=== PATIENT | male | born 1935 | race Caucasian/White ===

== ENCOUNTER 2017-06-16 18:59 | Inpatient (IN) | payer MEDICARE ==
--- OUTSIDE RECORDS SUMMARY | 2017-06-16 19:01 | XMS REPORT ---
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 Active Problem Atrial fibrillation I48.91 Active Problem Tremor R25.1 Active Problem Hypertension I10 Active Problem Erectile dysfunction N52.9 Active Problem Hydrocele N43.3 Active Problem Chronic pain syndrome G89.4 Active Problem Mixed hyperlipidemia E78.2 Active Assessment Tremor R25.1 Active Assessment Mixed hyperlipidemia E78.2 Active Assessment Complaint of debility and malaise R53.81 Active Assessment Parkinson''s disease G20 Active Assessment Chronic obstructive bronchitis J44.9 Active without exacerbation Problem Seasonal allergic rhinitis, J30.2 Active unspecified trigger Assessment Hypertension I10 Active Problem Parkinson''s disease G20 Active Assessment Atrial fibrillation I48.91 Active Problem Chronic kidney disease, stage 3 N18.3 Active Medications Medication Code Code Instructions Start End Status Dosage System Date Date Metoprolol [facility] 34571332065 50 MG Orally Active 1 tablet Tartrate Twice a day with food Symbicort [facility] 66115466531 160-4.5 MCG/ACT Active 2 puffs Inhalation Twice a day Aspirin [facility] 91167070123 325 MG Orally Active 1 tablet Once a day Pentoxifylline ER [facility] 66409319884 400 MG Orally Active 1 tablet Twice a day with meals Topiramate [facility] 89161299317 25 MG Orally Active 1 tablet Twice a day ProAir HFA [facility] 19827856610 108 (90 Base) Active 2 puffs as MCG/ACT needed Inhalation every 6 hrs Cardizem LA [facility] 88574555398 180 MG Orally Active 1 tablet Once a day Losartan [facility] 21067700596 50MG Orally Active TAKE ONE Potassium Once a day TABLET BY MOUTH ONCE DAILY Senokot S [facility] 69400129712 8.6-50 MG Active 1 tablet Orally Once a in the day evening as needed Perforomist [facility] 52726124496 20 MCG/2ML Active 2 ml Inhalation Twice a day Xarelto [facility] 24327271979 15 MG Orally Active 1 tablet Once a day with food Results No Known Results Summary Purpose eClinicalWorks Submission
[2017-06-16] MEDS ORDERED: LEVALBUTEROL 1.25 MG/3 ML NEB ONE (20:36)
[2017-06-16] MEDS ORDERED: IPRATROPIUM BROM 0.5MG/2.5ML ONE (20:36)
[2017-06-16] MEDS ORDERED: PANTOPRAZOLE 40 MG INJ ONE (20:37)
[2017-06-16] MEDS ORDERED: NA CHLORIDE 0.9% 250 ML ONE (20:37)
[2017-06-16 20:40] LABS: Absolute Lymphocytes (CBC) 1.9 K/uL (0.7-4.9); Absolute Monocytes 0.8 K/uL (0.1-1.3); Absolute Neutrophil 6.2 K/uL (1.8-8.0); Basophils % 0.5 % (0-1.3); Eosinophils % 1.2 % (0-4.4); Hematocrit 29.6 % (39.6-49.0); Lymphocytes % 20.7 % (15.3-44.8); MCH 22.6 pg (27.0-35.0); MPV 8.4 fL (7.6-11.3); Monocytes % 8.6 % (3.3-12.3); RBC Red Blood Cell Count 4.11 M/uL (4.33-5.43)
[2017-06-16 20:49] LABS: Protime INR 1.45
[2017-06-16 20:56] LABS: Potassium 4.2 mEq/L (3.6-5.0)
[2017-06-16 21:03] LABS: Albumin 4.3 g/dL (3.2-5.5); Bilirubin Direct 0.1 mg/dL (0-0.2); Bilirubin Total 0.4 mg/dL (0.3-1.2); Magnesium 1.9 mg/dL (1.8-2.5); Protein, Total 7.5 g/dL (6.0-8.3)
[2017-06-16 21:05] LABS: CKMB Creatine Kinase MB 2.7 ng/ml (0.3-4.0)
--- NOTE | 2017-06-16 21:34 | EDPHYS ---
Physician Documentation [facility] Name: Rohan Jaquez Age: 82 yrs Sex: Male : 1935 Arrival Date: 06/16/2017 Time: 19:03 Bed 27 Private MD: ED Physician Preston Merrill HPI: 06/16 19:52 This 82 yrs old Male presents to ER via Ambulatory with complaints of nupur Abnormal Lab Results. 19:52 The patient presents with abdominal pain in the upper abdomen, in the lower abdomen. nupur Onset: The symptoms/episode began/occurred 3 day(s) ago. The patient presents to the emergency department with rectal bleeding. Onset: The symptoms/episode began/occurred 3 day(s) ago. Abdominal pain: located in the right upper quadrant, left upper quadrant, right lower quadrant and left lower quadrant. Modifying factors: The symptoms are alleviated by nothing. The symptoms do not radiate. Modifying factors: The symptoms are alleviated by nothing, the symptoms are aggravated by nothing. Historical: - Allergies: 19:18 No Known Allergies; aj - Home Meds: 19:18 Xarelto 15 mg oral tab [Active]; losartan 50 mg Oral tab 1 tab once daily [Active]; aj metoprolol tartrate 50 mg Oral tab 1 tab 2 times per day [Active]; Miralax 17 gram/dose Oral powd once daily [Active]; robitussin AC [Active]; Cardizem 180 mg Oral 1 tab daily [Active]; NitroQuick SL 0.4 mg as needed [Active]; Perforomist 20 mcg/2 mL inhalation nebu 2 mL 2 times per day [Active]; prednisone 10 mg Oral tab once daily [Active]; Topamax 25 mg Oral cpSP 2 times per day [Active]; budesonide inhalation inhalation [Active]; - PMHx: 19:18 Atrial Fib; chronic renal disease; COPD; Hypertension; hypoxemia; Pneumonia; aj - PSHx: 19:18 Hernia repair; aj - Immunization history:: Adult Immunizations. - Social history:: Smoking status: Patient/guardian denies using tobacco. - Family history:: not pertinent. ROS: 19:52 Constitutional: Negative for fever, chills, and weight loss, Eyes: Negative for injury, nupur pain, redness, and discharge, ENT: Negative for injury, pain, and discharge, Neck: Negative for injury, pain, and swelling, Cardiovascular: Negative for chest pain, palpitations, and edema, Respiratory: Negative for shortness of breath, cough, wheezing, and pleuritic chest pain, Back: Negative for injury and pain, : Negative for injury, bleeding, discharge, and swelling, MS/Extremity: Negative for injury and deformity, Neuro: Negative for headache, weakness, numbness, tingling, and seizure, Psych: Negative for depression, anxiety, suicide ideation, homicidal ideation, and hallucinations, Allergy/Immunology: Negative for hives, rash, and allergies, Endocrine: Negative for neck swelling, polydipsia, polyuria, polyphagia, and marked weight changes, Hematologic/Lymphatic: Negative for swollen nodes, abnormal bleeding, and unusual bruising. 19:52 Abdomen/GI: Positive for abdominal pain, nausea, abdominal cramps, of the right upper quadrant, left upper quadrant, right lower quadrant and left lower quadrant. Exam: 19:52 Constitutional: This is a well developed, well nourished patient who is awake, alert, nupur and in no acute distress. Head/Face: Normocephalic, atraumatic. Eyes: Pupils equal round and reactive to light, extra-ocular motions intact. Lids and lashes normal. Conjunctiva and sclera are non-icteric and not injected. Cornea within normal limits. Periorbital areas with no swelling, redness, or edema. ENT: Nares patent. No nasal discharge, no septal abnormalities noted. Tympanic membranes are normal and external auditory canals are clear. Oropharynx with no redness, swelling, or masses, exudates, or evidence of obstruction, uvula midline. Mucous membranes moist. Neck: Trachea midline, no thyromegaly or masses palpated, and no cervical lymphadenopathy. Supple, full range of motion without nuchal rigidity, or vertebral point tenderness. No Meningismus. Chest/axilla: Normal chest wall appearance and motion. Nontender with no deformity. No lesions are appreciated. Cardiovascular: Regular rate and rhythm with a normal S1 and S2. No gallops, murmurs, or rubs. Normal PMI, no JVD. No pulse deficits. Back: No spinal tenderness. No costovertebral tenderness. Full range of motion. Male : Normal genitalia with no discharge or lesions. Skin: Warm, dry with normal turgor. Normal color with no rashes, no lesions, and no evidence of cellulitis. MS/ Extremity: Pulses equal, no cyanosis. Neurovascular intact. Full, normal range of motion. Neuro: Awake and alert, GCS 15, oriented to person, place, time, and situation. Cranial nerves II-XII grossly intact. Motor strength 5/5 in all extremities. Sensory grossly intact. Cerebellar exam normal. Normal gait. Psych: Awake, alert, with orientation to person, place and time. Behavior, mood, and affect are within normal limits. 19:52 Respiratory: the patient does not display signs of respiratory distress, Respirations: no acute changes, Breath sounds: bronchial sounds, decreased breath sounds, rhonchi, wheezing: expiratory Vital Signs: 19:18 BP 161 / 73; Pulse 88; Resp 19; Temp 97.4; Pulse Ox 96% on R/A; Weight 68.95 kg; Height aj 5 ft. 9 in. (175.26 cm); 20:03 BP 151 / 88; Pulse 91; Resp 18; Pulse Ox 96% ; Pain 0/10; cr4 22:20 BP 126 / 73; Pulse 78; Resp 18; Temp 98.4; Pulse Ox 94% ; Pain 0/10; cr4 22:32 BP 168 / 88; Pulse 82; Resp 18; Temp 98.6; Pulse Ox 94% ; Pain 0/10; cr4 19:18 Body Mass Index 22.45 (68.95 kg, 175.26 cm) aj MDM: 19:25 Patient medically screened. [facility] 19:54 Data reviewed: vital signs, nurses notes, lab test result(s), EKG, radiologic studies, [facility] CT scan, plain films. 06/16 19:51 Order name: Basic Metabolic Panel; Complete Time: 21:20 [facility] 06/16 19:51 Order name: BNP; Complete Time: 21:20 [facility] 06/16 19:51 Order name: CBC with Diff; Complete Time: 21:21 [facility] 06/16 19:51 Order name: Ckmb; Complete Time: 21:21 [facility] 06/16 19:51 Order name: CPK; Complete Time: 21:21 [facility] 06/16 19:51 Order name: LFT's; Complete Time: 21:21 [facility] 06/16 19:51 Order name: Magnesium; Complete Time: 21:21 [facility] 06/16 19:51 Order name: PT-INR; Complete Time: 21:21 nupur 06/16 19:51 Order name: Ptt, Activated; Complete Time: 21:21 nupur 06/16 19:51 Order name: Troponin (emerg Dept Use Only); Complete Time: 21:21 nupur 06/16 19:51 Order name: Type And Screen nupur 06/16 19:51 Order name: Lipase; Complete Time: 21:21 [facility] 06/16 20:13 Order name: Packed RBC Leukored -1 EDMS 06/16 21:52 Order name: CBC with Automated Diff EDMS 06/16 21:14 Order name: Abdomen EDMS 06/16 21:52 Order name: CBC with Automated Diff EDMS 06/16 21:52 Order name: Hematocrit EDMS 06/16 21:52 Order name: Hematocrit EDMS 06/16 21:52 Order name: Hematocrit EDMS 06/16 21:52 Order name: Hemoglobin EDMS 06/16 21:52 Order name: Hemoglobin EDMS 06/16 21:52 Order name: Hemoglobin EDMS 06/16 21:52 Order name: Protime (+INR) EDMS 06/16 21:52 Order name: Protime (+INR) EDMS 06/16 21:52 Order name: PTT, Activated Partial Thromb EDMS 06/16 21:52 Order name: PTT, Activated Partial Thromb EDMS 06/16 19:51 Order name: EKG; Complete Time: 19:52 nupur 06/16 19:51 Order name: Cardiac monitoring; Complete Time: 20:30 nupur 06/16 19:51 Order name: EKG - Nurse/Tech; Complete Time: 20:57 06/16 19:51 Order name: IV Saline Lock; Complete Time: 20:30 nupur 06/16 19:51 Order name: Labs collected and sent; Complete Time: 20:30 [facility] 06/16 19:51 Order name: O2 Per Protocol; Complete Time: 20:30 [facility] 06/16 19:51 Order name: O2 Sat Monitoring; Complete Time: 20:30 [facility] 06/16 19:51 Order name: IV Saline Lock - Large Bore; Complete Time: 20:30 [facility] 06/16 21:37 Order name: CONS Physician Consult EDOH 06/16 21:52 Order name: CONS Pharmacy Consult EDOH 06/16 21:52 Order name: NPO EDOH 06/16 21:52 Order name: EKG Electrocardiogram EDMS 06/16 21:52 Order name: EKG Electrocardiogram EDMS 06/16 21:52 Order name: EKG Electrocardiogram EDMS 06/16 21:52 Order name: EKG Electrocardiogram EDMS 06/16 21:52 Order name: EKG Electrocardiogram EDMS 06/16 21:52 Order name: EKG Electrocardiogram EDMS 06/16 21:52 Order name: EKG Electrocardiogram EDMS 06/16 21:52 Order name: EKG Electrocardiogram EDMS 06/16 21:52 Order name: EKG Electrocardiogram EDMS 06/16 21:52 Order name: EKG Electrocardiogram EDMS 06/16 21:52 Order name: EKG Electrocardiogram EDMS Administered Medications: 20:35 Drug: ProTONIX 80 mg Route: IVP; Site: right antecubital; cr4 21:10 Follow up: Response: No adverse reaction cr4 20:45 Drug: ProTONIX 8 mg/hr Route: IV; Rate: 25 ml/hr; Site: right antecubital; cr4 23:13 Follow up: IV Status: Infusion continued upon admission cr4 20:45 Drug: Xopenex 1.25 mg Route: Inhalation; cr4 20:45 Drug: AtroVENT Aerosol 0.5 mg Route: Inhalation; cr4 21:00 Follow up: Response: No adverse reaction cr4 Point of Care Testing: Guaiac: 19:56 Stool Guaiac: Positive; Stool Hemoccult Control: Pass; nupur Disposition: 06/16/17 21:34 Hospitalization ordered by Lelo Cope for Inpatient Admission. Preliminary diagnosis are Gastrointestinal hemorrhage, unspecified, Unspecified kidney failure, Chronic obstructive pulmonary disease with (acute) exacerbation. - Bed requested for Telemetry/MedSurg (Inpatient). - Status is Inpatient Admission. cr4 - Condition is Fair. - Problem is new. - Symptoms have improved. UTI on Admission? No Signatures: Dispatcher [employer] EDMariaelena Loomis RN RN mw Myers, Amanda, RN RN aj Anderson, Corey, MD MD cha Ruiz, Claudia, RN RN cr4 Preston Thapa PA PA cp Corrections: (The following items were deleted from the chart) 20:31 19:52 Chest Single View+RAD.RAD.BRZ ordered. EDOH EDOH 21:14 19:52 Abdomen Pelvis W Con+CT.RAD.BRZ ordered. EDMS EDMS
--- NOTE | 2017-06-16 21:34 | ER ---
Nurse's Notes [facility] Name: Rohan Jaquez Age: 82 yrs Sex: Male : 1935 Arrival Date: 06/16/2017 Time: 19:03 Bed 27 Private MD: Diagnosis: Gastrointestinal hemorrhage, unspecified;Unspecified kidney failure;Chronic obstructive pulmonary disease with (acute) exacerbation Presentation: 06/16 19:13 Presenting complaint: Patient states: Sent by Dr Velasco for "low blood". Transition of aj care: patient was not received from another setting of care. Onset of symptoms was June 16, 2017. Care prior to arrival: None. 19:13 Method Of Arrival: Ambulatory aj 19:13 Acuity: ANDRES 3 aj Triage Assessment: 19:18 General: Appears in no apparent distress. comfortable, Behavior is calm, cooperative, aj appropriate for age. Pain: Complains of pain in pelvis. Neuro: Level of Consciousness is awake, alert, obeys commands, Oriented to person, place, time, situation. Respiratory: Airway is patent Respiratory effort is even, unlabored, Respiratory pattern is regular, symmetrical. Derm: Skin is intact, is healthy with good turgor, Skin is pink, warm \\T\\ dry. normal. Historical: - Allergies: 19:18 No Known Allergies; aj - Home Meds: 19:18 Xarelto 15 mg oral tab [Active]; losartan 50 mg Oral tab 1 tab once daily [Active]; aj metoprolol tartrate 50 mg Oral tab 1 tab 2 times per day [Active]; Miralax 17 gram/dose Oral powd once daily [Active]; robitussin AC [Active]; Cardizem 180 mg Oral 1 tab daily [Active]; NitroQuick SL 0.4 mg as needed [Active]; Perforomist 20 mcg/2 mL inhalation nebu 2 mL 2 times per day [Active]; prednisone 10 mg Oral tab once daily [Active]; Topamax 25 mg Oral cpSP 2 times per day [Active]; budesonide inhalation inhalation [Active]; - PMHx: 19:18 Atrial Fib; chronic renal disease; COPD; Hypertension; hypoxemia; Pneumonia; aj - PSHx: 19:18 Hernia repair; aj - Immunization history:: Adult Immunizations. - Social history:: Smoking status: Patient/guardian denies using tobacco. - Family history:: not pertinent. Screenin:35 Abuse screen: Denies threats or abuse. Nutritional screening: No deficits noted. cr4 Tuberculosis screening: No symptoms or risk factors identified. Fall Risk No fall in past 12 months (0 pts). Secondary diagnosis (15 points) impaired mobility, IV access (20 points). Ambulatory Aid- Crutches/Cane/Walker (15 pts). Gait- Weak (10 pts.). Mental Status- Oriented to own ability (0 pts). Total Mahan Fall Scale indicates High Risk Score (45 or more points). Fall prevention measures have been instituted. Side Rails Up X 2 Placed Close to Nursing Station Frequent Obs/Assessments Occuring As available patient and family educated on Fall Prevention Program and Strategies. Assessment: 20:11 General: Appears comfortable, Behavior is calm, cooperative. Pain: Denies pain. Neuro: cr4 Reports weakness. Cardiovascular: No deficits noted. Reports Denies chest pain, lightheadedness, nausea, Heart tones S1 S2 Capillary refill < 3 seconds. Respiratory: Reports cough that is productive, Airway is patent Trachea midline Respiratory effort is even, unlabored, Breath sounds are clear bilaterally. GI: No deficits noted. : Reports patient denies need to void. Denies burning with urination, discharge, incontinence. EENT: No deficits noted. Derm: No deficits noted. Musculoskeletal: Capillary refill < 3 seconds, uses walker to ambulate. 21:00 Reassessment: No changes from previously documented assessment. Patient and/or family cr4 updated on plan of care and expected duration. Pain level reassessed. Patient is alert, oriented x 3, equal unlabored respirations, skin warm/dry/pink. 22:25 Reassessment: No changes from previously documented assessment. Patient and/or family cr4 updated on plan of care and expected duration. Pain level reassessed. Patient is alert, oriented x 3, equal unlabored respirations, skin warm/dry/pink. Vital Signs: 19:18 BP 161 / 73; Pulse 88; Resp 19; Temp 97.4; Pulse Ox 96% on R/A; Weight 68.95 kg; Height aj 5 ft. 9 in. (175.26 cm); 20:03 BP 151 / 88; Pulse 91; Resp 18; Pulse Ox 96% ; Pain 0/10; cr4 22:20 BP 126 / 73; Pulse 78; Resp 18; Temp 98.4; Pulse Ox 94% ; Pain 0/10; cr4 22:32 BP 168 / 88; Pulse 82; Resp 18; Temp 98.6; Pulse Ox 94% ; Pain 0/10; cr4 19:18 Body Mass Index 22.45 (68.95 kg, 175.26 cm) ED Course: 19:03 Patient arrived in ED. al2 19:13 Triage completed. aj 19:18 Arm band placed on right wrist. Patient placed in an exam room. aj 19:23 Harpal Sanchez MD is Attending Physician. ky 19:25 Attending Physician role handed off by Harpal Sanchez MD nupur 19:25 Preston Merrill MD is Attending Physician. nupur 20:28 Initial lab(s) drawn, by wa, sent to lab. Inserted saline lock: 22 gauge in right dh3 antecubital area, using aseptic technique. Blood collected. 20:56 EKG done, by ED staff, reviewed by Preston Merrill MD. 3 20:57 Inserted saline lock: 20 gauge in left antecubital area, using aseptic technique. 3 21:33 Lelo Cope MD is Hospitalizing Provider. nupur 21:46 Abdomen In Process Unspecified. EDMS 22:36 No provider procedures requiring assistance completed. Patient admitted, IV remains in cr4 place. 22:38 Patient has correct armband on for positive identification. Allergy band placed. Side cr4 rails up X2. Administered Medications: 20:35 Drug: ProTONIX 80 mg Route: IVP; Site: right antecubital; cr4 21:10 Follow up: Response: No adverse reaction cr4 20:45 Drug: ProTONIX 8 mg/hr Route: IV; Rate: 25 ml/hr; Site: right antecubital; cr4 23:13 Follow up: IV Status: Infusion continued upon admission cr4 20:45 Drug: Xopenex 1.25 mg Route: Inhalation; cr4 20:45 Drug: AtroVENT Aerosol 0.5 mg Route: Inhalation; cr4 21:00 Follow up: Response: No adverse reaction cr4 Point of Care Testing: Guaiac: 19:56 Stool Guaiac: Positive; Stool Hemoccult Control: Pass; nupur Outcome: 21:34 Decision to Hospitalize by Provider. nupur 22:38 Admitted to Med/surg cr4 23:10 Condition: stable cr4 23:10 Instructed on the need for admit, Demonstrated understanding of 23:11 Admitted to Med/surg accompanied by tech, room 216, with chart, Report called to cr4 Debi 23:13 Patient left the ED. cr4 Signatures: Dispatcher [employer] Megan Navarro RN RN aj Anderson, Corey, MD MD cha Ruiz, Claudia, RN RN cr4 Pat Hein 3 Harpal Sanchez MD MD wa Love, Hillary [email or web address]
[2017-06-16] MEDS ORDERED: ONDANSETRON 4 MG/2 ML VIAL IV PRN (21:48)
[2017-06-16] MEDS ORDERED: ACETAMINOPHEN 500 MG TAB PO PRN (21:48)
[2017-06-16] MEDS ORDERED: MORPHINE 2 MG/ML SYR IV PRN (21:48)
[2017-06-16] MEDS ORDERED: NA CHLORIDE 0.9% 250 ML IV SCH (22:00)
[2017-06-16] MEDS: PANTOPRAZOLE INJ 80 MG in NA CHLORIDE 0.9% 250 ML IV SCH (22:00)
--- NOTE | 2017-06-16 22:14 | RAD REPORT ---
EXAM DESCRIPTION: CT - Abdomen Pelvis Wo Contrast - 06/16/2017 9:47 pm CLINICAL HISTORY: Abdominal pain COMPARISON: CT July 2016 TECHNIQUE: Axial [address] imaging of the abdomen and pelvis was performed without IV contrast. No IV contrast was given because of allergy, abnormal renal function, patient refusal or physician re quest. Oral contrast was given. All CT scans are performed using dose optimization technique as appropriate and may include automated exposure control or mA/KV adjustment according to patient size. FINDINGS: No suspicious findings in the lung bases. No pericardial effusion. The liver, spleen and pancreas show no suspicious findings on non-contrast imaging. Gallbladder and b iliary tree are also without suspicious finding. No hydronephrosis or suspicious renal mass. Approximately 4.3 centimeter upper pole left renal cyst n ot substantially different from prior study. Renal vascular calcifications are present. No significan t adrenal finding. Isodense renal masses and pyelonephritis cannot be excluded in the absence of IV c ontrast. The urinary bladder is without significant finding. No suspicious prostate gland or seminal vesicle finding. No dilated bowel loops or bowel wall thickening. No free air, free fluid or inflammatory stranding. N o hernia, mass or bulky lymphadenopathy. No hematoma. Disc and bony degenerative changes are present. Dense vascular calcifications are present. IMPRESSION: Non-contrast enhanced CT abdomen and pelvis imaging shows no acute finding. Full assessment is limited is the absence of IV contrast. Above detailed findings are not significantly different from July 2016.
[2017-06-17 00:11] VITALS: BMI 21.1
[2017-06-17 00:57] LABS: Hematocrit 26.8 % (39.6-49.0)
[2017-06-17] MEDS: NA CHLORIDE 0.9% 1,000 ML IV SCH ×2 (01:11→11:12)
[2017-06-17] MEDS: METRONIDAZOLE 500mg IVPB 500 MG/100 ML BAG IV SCH ×3 (01:11→16:45)
[2017-06-17 05:20] LABS: Protime INR 1.41
[2017-06-17 05:25] LABS: Absolute Lymphocytes (CBC) 1.9 K/uL (0.7-4.9); Absolute Monocytes 0.6 K/uL (0.1-1.3); Basophils % 0.8 % (0-1.3); Eosinophils % 1.9 % (0-4.4); Hematocrit 25.5 % (39.6-49.0); Lymphocytes % 27.7 % (15.3-44.8); MCH 21.8 pg (27.0-35.0); MCV 72.1 fL (80-100); MPV 8.7 fL (7.6-11.3); Monocytes % 9.1 % (3.3-12.3); RBC Red Blood Cell Count 3.54 M/uL (4.33-5.43)
[2017-06-17] MEDS ORDERED: NA CHLORIDE 0.9% 100 ML ONE (06:41)
--- NOTE | 2017-06-17 08:09 | P.HP ---
Certification for Inpatient Patient admitted to: Inpatient With expected LOS: >2 Midnights Patient will require the following post-hospital care: None Practitioner: I am a practitioner with admitting privileges, knowledge of patient current condition, hospital course, and medical plan of care. Services: Services provided to patient in accordance with Admission requirements found in Title 42 Section 412.3 of the Code of Federal Regulations Patient History Date of Service: 06/16/17 Reason for admission: GI bleeding History of Present Illness: Mr. 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 He has a history of COPD. He has been losing quite a bit of weight over the last couple of years. He is using a walker now. His strength continues to decline. He was diagnosed with atrial fibrillation over the last year and a half. He has been on Xarelto. He has been noticing worsening weakness and he had low has which revealed anemia. He states he has had some rectal bleeding. They're unable to identified the source of this bleeding. Patient will be admitted to the hospital with gentle hydration. Will hold his anti coagulation. Will recheck H&H every 4 hr. If less than 8.0, will go ahead and transfuse. At this time will continue PPI drip. Await GI consultation. Allergies No Known Allergies Allergy (Verified 07/08/16 20:30) Home Medications: Pentoxifylline 400 mg PO TID 11/21/15 Losartan Potassium [Cozaar*] 25 mg PO DAILY 04/24/16 Metoprolol Tartrate [Lopressor] 50 mg PO DAILY 06/26/16 Rivaroxaban [Xarelto*] 15 mg PO DAILY #30 tablet 07/10/16 Diltiazem HCl [Cartia Xt] 1 tab PO DAILY 11/03/16 Diphenhydramine [Benadryl*] 25 mg PO Q6HP PRN 11/03/16 Hydrochlorothiazide 25 mg PO DAILY 11/03/16 Prednisone [Deltasone*] 10 mg PO DAILY 11/03/16 Topiramate 25 mg PO DAILY 06/17/17 - Past Medical/Surgical History Has patient received pneumonia vaccine in the past: Yes Diabetic: No -: HTN -: COPD -: L rotator cuff injury with chronic pain -: Chronic pain-Pain management-Dr. Merida. -: History of tobacco. 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 - Family History Father Medical History: Heart disease, Hypertension, Lung disease Mother Medical History: Heart disease Brother Medical History: Lung disease daughter Medical History: Cancer - Social History Smoking Status: Former smoker Alcohol use: No CD- Drugs: No Caffeine use: No Place of Residence: Home Review of Systems 10-point ROS is otherwise unremarkable Physical Examination - Vital Signs Temperature: 97.2 F Blood Pressure: 120/55 Pulse: 80 Respirations: 18 Pulse Ox (%): 96 - Physical Exam General: Alert, In no apparent distress, Oriented x3 HEENT: Atraumatic, Normocephalic Neck: Supple, 2+ carotid pulse no bruit, JVD not distended, No Thyromegaly Respiratory: Clear to auscultation bilaterally, Normal air movement Cardiovascular: Regular rate/rhythm, Normal S1 S2, No murmurs Gastrointestinal: Normal bowel sounds, Hypoactive, Soft and benign, Non- distended, No rebound, No guarding, Tenderness (mild diffuse) Musculoskeletal: No clubbing, No swelling, No tenderness Integumentary: No rashes Neurological: Normal tone, Sensation intact, Cranial nerves 3-12 intact, Abnormal gait, Abnormal strength - Studies Laboratory Data (last 24 hrs) 06/16/17 20:22: PT 17.2 H, INR 1.45, APTT 28.9 06/16/17 20:22: WBC 9.0, Hgb 9.3 L, Hct 29.6 L, Plt Count 272 06/16/17 20:22: B-Natriuretic Peptide 149 H 06/16/17 20:22: Sodium 136, Potassium 4.2, BUN 32 H, Creatinine 1.93 H, Glucose 99, Magnesium 1.9, Total Bilirubin 0.4, AST 20, ALT 22, Alkaline Phosphatase 65 , Lipase 37 Assessment & Plan - Problems (Diagnosis) (1) Acute blood loss anemia Current Visit: Yes Status: Acute (2) Rectal bleeding Current Visit: Yes Status: Acute (3) Atrial fibrillation with rapid ventricular response Onset Date: 04/28/16 Current Visit: No Status: Acute (4) Malignant hypertension Onset Date: 06/28/16 Current Visit: No Status: Acute (5) Pubic ramus fracture Onset Date: 08/12/15 Current Visit: No Status: Acute (6) Weakness Onset Date: 07/09/16 Current Visit: No Status: Acute (7) Atrial fibrillation Onset Date: 11/05/16 Current Visit: No Status: Chronic Qualifiers: (8) COPD (chronic obstructive pulmonary disease) Onset Date: 04/28/16 Current Visit: No Status: Chronic Qualifiers: (9) Chronic pain disorder Onset Date: 11/05/16 Current Visit: No Status: Chronic (10) Pulmonary fibrosis Current Visit: No Status: Chronic - Plan Plan: 1. Continue with IV hydration and PPI drip 2. Continue with IV antibiotics 3. Continue with pain control 4. NPO 5. GI consultation 6. Serial H&H, and we will monitor LFTs and lipase along with electrolytes. 7. Hold Xarelto and medication for rate control 8. Medication for COPD 9. GI and DVT prophylaxis Discharge Plan: Home Plan to discharge in: 24 Hours - Advance Directives Does patient have a Living Will: No Does patient have a Durable POA for Healthcare: No - Code Status/Comfort Care Code Status Assessed: Yes Code Status: Full Code Critical Care: No Time Spent Managing PTS Care (In Minutes): 55
[2017-06-17] MEDS: PANTOPRAZOLE INJ 80 MG in NA CHLORIDE 0.9% 250 ML IV SCH ×2 (08:55→18:09)
[2017-06-17] MEDS: CEFTRIAXONE/SWI 1gm 1 GM/10 ML SYR IV SCH (08:56)
[2017-06-17] MEDS ORDERED: CEFTRIAXONE 1 GM/NS 50 ML 1 GM/50 ML BAG IV SCH (09:00)
[2017-06-17] MEDS ORDERED: MORPHINE 4 MG/ML SYR IV PRN (09:20)
[2017-06-17] MEDS ORDERED: DIPHENHYDRAMINE 25 MG TAB/CAP PO PRN (10:51)
[2017-06-17] MEDS: PENTOXIFYLLINE ER 400 MG TAB PO SCH ×2 (11:33→16:46)
[2017-06-17 11:57] LABS: Hematocrit 32.5 % (39.6-49.0)
--- NOTE | 2017-06-17 17:11 | P.PN ---
Subjective Date of Service: 06/17/17 Chief Complaint: GI bleeding Pt seen and examined at bedside. Chart reviewed. Case D/W GI. Planning for EGD and colonoscopy on Tuesday. Currently pt is weak and feels like he is very sick. Attempted to work with PT today and he felt dizziness. Review of Systems General: As per HPI Physical Examination - Vital Signs Temperature: 97.0 F Blood Pressure: 135/74 Pulse: 94 Respirations: 18 Pulse Ox (%): 94 - Physical Exam General: Alert, In no apparent distress, Oriented x3 HEENT: Atraumatic, PERRLA, EOMI Neck: Supple, JVD not distended Respiratory: Clear to auscultation bilaterally, Normal air movement Cardiovascular: Regular rate/rhythm, Normal S1 S2 Gastrointestinal: Normal bowel sounds, No tenderness Musculoskeletal: No tenderness Integumentary: No rashes Neurological: Normal speech, Normal tone, Normal affect, Abnormal strength Lymphatics: No axilla or inguinal lymphadenopathy - Studies Laboratory Data (last 24 hrs) 06/16/17 20:22: PT 17.2 H, INR 1.45, APTT 28.9 06/16/17 20:22: WBC 9.0, Hgb 9.3 L, Hct 29.6 L, Plt Count 272 06/16/17 20:22: B-Natriuretic Peptide 149 H 06/16/17 20:22: Sodium 136, Potassium 4.2, BUN 32 H, Creatinine 1.93 H, Glucose 99, Magnesium 1.9, Total Bilirubin 0.4, AST 20, ALT 22, Alkaline Phosphatase 65 , Lipase 37 Medications List Reviewed: Yes Assessment & Plan - Problems (Diagnosis) (1) Lower gastrointestinal hemorrhage Onset Date: 06/17/17 Current Visit: No Status: Acute Plan: Rectal bleeding. H/H intially low -S/P 1 units and HH stable now -Serial H/H here in the hospital -GI consulted. Appreciated Reccs. -Switched to PO protonix and PO abx today -Scheduled for procedure tuesday. (2) Acute blood loss anemia Onset Date: 06/17/17 Current Visit: Yes Status: Acute (3) Atrial fibrillation Onset Date: 11/05/16 Current Visit: No Status: Chronic Plan: Hold Xarelto due to acute blood loss anemia. -Cardiology consulted -Reccs Holding xarelto for 5 days. Qualifiers: Atrial fibrillation type: chronic Qualified Code(s): I48.2 - Chronic atrial fibrillation (4) COPD (chronic obstructive pulmonary disease) Onset Date: 04/28/16 Current Visit: No Status: Chronic Qualifiers: COPD type: unspecified COPD Qualified Code(s): J44.9 - Chronic obstructive pulmonary disease, unspecified (5) Chronic renal disease Onset Date: 11/05/16 Current Visit: No Status: Chronic Qualifiers: Chronic kidney disease stage: stage 3 (moderate) Qualified Code(s): N18.3 - Chronic kidney disease, stage 3 (moderate) (6) HTN (hypertension) Current Visit: No Status: Chronic Qualifiers: Hypertension type: essential hypertension Qualified Code(s): I10 - Essential (primary) hypertension Discharge Plan: Home Plan to discharge in: 24 Hours - Code Status/Comfort Care Code Status Assessed: Yes Critical Care: No
[2017-06-17] MEDS ORDERED: IPRATROPIUM BROM 0.5MG/2.5ML NEB PRN (22:58)
[2017-06-17] MEDS ORDERED: ALBUTEROL 2.5 MG/3 ML NEB SOL NEB PRN (22:59)
[2017-06-17 23:26] LABS: Urine Appearance CLEAR; Urine Bilirubin NEGATIVE (NEG); Urine Blood NEGATIVE (NEG); Urine Color YELLOW; Urine Glucose NEGATIVE (NEG); Urine Protein NEGATIVE (NEG); Urine Specific Gravity 1.015 (1.005-1.030); Urine Urobilinogen 0.2 mg/dL (0.2-1.0)
[2017-06-17 23:56] LABS: Urine Microscopic Reflex NO UMIC
[2017-06-18] MEDS: METRONIDAZOLE 500mg IVPB 500 MG/100 ML BAG IV SCH ×2 (01:29→08:25)
[2017-06-18] MEDS: NA CHLORIDE 0.9% 1,000 ML IV SCH (01:30)
[2017-06-18] MEDS: PANTOPRAZOLE INJ 80 MG in NA CHLORIDE 0.9% 250 ML IV SCH (04:00)
[2017-06-18] MEDS: PENTOXIFYLLINE ER 400 MG TAB PO SCH ×2 (08:24→12:00)
[2017-06-18] MEDS: CEFTRIAXONE/SWI 1gm 1 GM/10 ML SYR IV SCH (08:25)
[2017-06-18] MEDS ORDERED: METOPROLOL TAR 50 MG TAB PO SCH (09:00)
[2017-06-18] MEDS ORDERED: DILTIAZEM HCL 180 MG SR CAP PO SCH (09:00)
[2017-06-18] MEDS ORDERED: LOSARTAN POTASSIUM 50 MG TABLET PO SCH (09:00)
[2017-06-18] MEDS ORDERED: hydroCHLOROthiazide 25 MG TAB PO SCH (09:00)
[2017-06-18] MEDS ORDERED: TOPIRAMATE 25 MG TAB PO SCH (09:00)
[2017-06-18 11:11] LABS: Absolute Lymphocytes (CBC) 1.2 K/uL (0.7-4.9); Absolute Monocytes 0.6 K/uL (0.1-1.3); Absolute Neutrophil 7.2 K/uL (1.8-8.0); Eosinophils % 1.7 % (0-4.4); Hematocrit 32.4 % (39.6-49.0); Lymphocytes % 13.3 % (15.3-44.8); MCH 22.9 pg (27.0-35.0); MCV 74.3 fL (80-100); MPV 8.6 fL (7.6-11.3); Monocytes % 6.3 % (3.3-12.3); RBC Red Blood Cell Count 4.36 M/uL (4.33-5.43)
[2017-06-18 11:20] LABS: Potassium 4.5 mEq/L (3.6-5.0)
[2017-06-18 12:10] VITALS: BP 111/58; TEMP 96
[2017-06-18 13:59] VITALS: O2SAT 96
--- NOTE | 2017-06-18 14:03 | CON ---
Date of Consultation: 06/17/2017 Reason For Consultation: Atrial fibrillation, anticoagulation therapy, and GI bleed. History Of Present Illness: Mr. Jauqez is an 82-year-old white male. He came into the emergency r oom with abnormal lab results. He himself denied having any GI bleeds or melena, but was noted on ou tpatient lab to have a hemoglobin of approximately 7, was told to come to the emergency room because of his abnormal labs. Has had some upper abdominal pain and lower abdominal pain that has been going on for about 2-3 days. He had some rectal bleeding, but no melena. He denied any cardiac symptoms. Allergies: NONE. Review of Systems: Negative. Social History: Negative. Family History: Noncontributory. Medications: At home include Xarelto, metoprolol, MiraLAX, Robitussin, Cardizem, NitroQuick as neede d, inhalers, prednisone, Topamax. Past Medical History: Include atrial fibrillation, hypertension, COPD, chronic renal disease, histor y of pneumonia and history of hernia repair in the past. Physical Examination: Vital Signs: When I saw him, his pressure was 165/79 with a pulse of 90, in sinus rhythm heart rate. His respiratory rate was 20. He was afebrile. His I's and O's were adequate. O2 saturation was n ormal on room air. HEENT: Negative. Neck: Supple with no bruit. Chest: Clear to auscultation and percussion. Cardiac: Revealed a regular rhythm and rate. No murmurs, gallops, or rubs. Abdomen: Benign. Extremities: Revealed no clubbing, cyanosis, or edema. Diagnostic Data: His creatinine is 1.93. Hemoglobin is 7.7, which went up to 10.2 after transfusion . Platelet count was normal. INR was 1.41. BNP was 149. CPK and MB were negative. His troponin w as 0.03. Impression And Plan: The patient with history of chronic atrial fibrillation that has resolved. He is on Cardizem and Xarelto. Xarelto needs to be held for now until a GI procedure is done, but he is cleared from a cardiovascular standpoint to undergo the procedure. His medicines, which include Car dizem should be continued. He is also on losartan and hydrochlorothiazide. He really should not be on both diltiazem and metoprolol. I would prefer we discontinue the diltiazem. Continue the metopro lol for blood pressure control and his atrial fibrillation. He has what appears to be colitis. He i s getting Rocephin for that. He is also getting Protonix injection because of his bleed. He is on T [place] for peripheral vascular disease and I agree with that. We should probably resume the Xarelto in the near future after his GI workup is done. He is in sinus rhythm. Certainly, we can wait to st art the Xarelto until his hemoglobin stabilizes but we will follow him eventually as an outpatient. From our standpoint, he can go home whenever it is okay with Dr. Vela and GI and we will see him gisela POSADA/TG Voice ID: [id number] Report ID: [id number]
--- NOTE | 2017-06-18 14:23 | P.DS ---
Admission Date: 06/16/17 Discharge Date: 06/18/17 Disposition: ROUTINE DISCHARGE Discharge Condition: GOOD Reason for Admission: GI bleeding Consultations: GI and Cardiology - Problems (1) Lower gastrointestinal hemorrhage Onset Date: 06/17/17 Status: Resolved (2) Acute blood loss anemia Onset Date: 06/17/17 Status: Resolved (3) Atrial fibrillation Onset Date: 11/05/16 Status: Chronic Qualifiers: Atrial fibrillation type: chronic Qualified Code(s): I48.2 - Chronic atrial fibrillation (4) COPD (chronic obstructive pulmonary disease) Onset Date: 04/28/16 Status: Chronic Qualifiers: COPD type: unspecified COPD Qualified Code(s): J44.9 - Chronic obstructive pulmonary disease, unspecified (5) Chronic renal disease Onset Date: 11/05/16 Status: Chronic Qualifiers: Chronic kidney disease stage: stage 3 (moderate) Qualified Code(s): N18.3 - Chronic kidney disease, stage 3 (moderate) (6) HTN (hypertension) Status: Chronic Qualifiers: Hypertension type: essential hypertension Qualified Code(s): I10 - Essential (primary) hypertension Brief History of Present Illness: See HPI Hospital Course: Overall during the hospital stay patient remained stable The patient was initially admitted to the hospital for melanotic stools that has been going on for about 2-3 days. Patient was found to have lower GI bleeding. GI was consulted here in the hospital. Patient's hemoglobin remained stable while here in the hospital patient did receive 1 unit of transfusion while here in the hospital. Resolution of melanotic stools was noted. Patient also remained on IV Protonix while here in the hospital. The 2 of hospitalization patient stated that he would like to go home and will follow up with GI outpatient. At that time GI was called and stated that it is okay for patient to go home and follow up outpatient for a colonoscopy and an EGD scheduled next week. Cardiology was consulted given the history of AFib and patient being on [place]. Cardiology recommended that patient stop the Zaroxolyn toe a GI procedures done. Patient was educated regarding this. Patient was also educated regarding stopping his Cardizem as he is currently on beta-mirian and his AFib is stable at this time. Patient then was discharged home under stable condition was given p.o. per tonic b.i.d. and was asked to follow up with GI and cardiology in about 1-2 days most preferably Tuesday or Tuesday in their office Vital Signs/Physical Exam: Temp Pulse Resp BP Pulse Ox 96.0 F L 73 16 111/58 L 95 06/18/17 12:00 06/18/17 12:00 06/18/17 12:00 06/18/17 12:00 06/18/17 12:00 General: Alert, In no apparent distress HEENT: Atraumatic, PERRLA, EOMI Neck: Supple, JVD not distended Respiratory: Clear to auscultation bilaterally, Normal air movement Cardiovascular: Regular rate/rhythm, Normal S1 S2 Gastrointestinal: Normal bowel sounds, No tenderness Musculoskeletal: No tenderness Integumentary: No rashes Neurological: Normal speech, Normal tone, Normal affect Lymphatics: No axilla or inguinal lymphadenopathy Laboratory Data at Discharge: WBC 9.2 K/uL (4.3-10.9) D 06/18/17 10:41 Hgb 10.0 g/dL (13.6-17.9) L 06/18/17 10:41 Hct 32.4 % (39.6-49.0) L 06/18/17 10:41 Plt Count 244 K/uL (152-406) 06/18/17 10:41 PT 16.7 SECONDS (9.5-12.5) H 06/17/17 04:16 INR 1.41 06/17/17 04:16 APTT 27.9 SECONDS (24.3-36.9) 06/17/17 04:16 Sodium 138 mEq/L (135-145) 06/18/17 10:41 Potassium 4.5 mEq/L (3.6-5.0) 06/18/17 10:41 BUN 19 mg/dL (6-20) 06/18/17 10:41 Creatinine 1.59 mg/dL (0.61-1.24) H 06/18/17 10:41 Glucose 93 mg/dL (65-120) 06/18/17 10:41 Magnesium 1.9 mg/dL (1.8-2.5) 06/16/17 20:22 Total Bilirubin 0.4 mg/dL (0.3-1.2) 06/16/17 20:22 AST 20 IU/L (10-42) 06/16/17 20:22 ALT 22 IU/L (10-60) 06/16/17 20:22 Alkaline Phosphatase 65 IU/L (42-121) 06/16/17 20:22 B-Natriuretic Peptide 149 pg/ml (<=100) H 06/16/17 20:22 Lipase 37 U/L (22-51) 06/16/17 20:22 Home Medications: Pentoxifylline 400 mg PO TID 11/21/15 Losartan Potassium [Cozaar*] 25 mg PO DAILY 04/24/16 Metoprolol Tartrate [Lopressor] 50 mg PO DAILY 06/26/16 Rivaroxaban [Xarelto*] 15 mg PO DAILY #30 tablet 07/10/16 Diphenhydramine [Benadryl*] 25 mg PO Q6HP PRN 11/03/16 Hydrochlorothiazide 25 mg PO DAILY 11/03/16 Prednisone [Deltasone*] 10 mg PO DAILY 11/03/16 Topiramate 25 mg PO DAILY 06/17/17 Pantoprazole Sodium [Protonix] 40 mg PO BID #60 tablet. 06/18/17 New Medications: Pantoprazole Sodium [Protonix] 40 mg PO BID #60 tablet. Patient Discharge Instructions: Please f/u with GI Dr Hollins in the clinic on tuesday in the afternoon. They will be calling you at the house for appt setup. -You will be scheduled for EGD and colonoscopy of tuesday. Hold medication. Xarelto for now till you get EGD done. It has been on hold since 06/16/17. Continue taking all other medication as prescribed. Diet: Regular Activity: Ad alex Followup: Adrian Villavicencio MD [ACTIVE - CAN ADMIT] - 06/20/17 12:00 pm
--- NOTE | 2017-06-19 22:38 | EKG ---
Test Date: 2017-06-17 Test Time: 22:14:11 Wood Patternmaker: RT T MEASUREMENT RESULTS: Intervals: Rate: 94 [place]: QRSD: 116 QT: 366 QTc: 457 [place]: P: [place]: QRS: 85 T: 61 INTERPRETIVE STATEMENTS: Atrial fibrillation Right bundle branch block Abnormal ECG Compared to ECG 06/16/2017 20:45:05 Ventricular premature complex(es) no longer present Electronically Signed On 06-19-17 22:38:07 CDT by Adi Velasco
--- NOTE | 2017-06-19 22:47 | EKG ---
Test Date: 2017-06-16 Test Time: 20:45:05 Qc Analyst: ROLAND MEASUREMENT RESULTS: Intervals: Rate: 96 [place]: QRSD: 110 QT: 322 QTc: 406 [place]: P: [place]: QRS: 78 T: 60 INTERPRETIVE STATEMENTS: Atrial fibrillation Right bundle branch block Abnormal ECG Compared to ECG 11/03/2016 08:36:06 no significant change from previous ECG Electronically Signed On 06-19-17 22:46:51 CDT by Adi Velasco
== END 2017-06-18 13:18 | disposition home or self-care (01) | DRG 378 ==
LOC: ER 18:59 → ERHOLD 21:35 → 2ND 22:36
PROVIDERS: ADMIT Hospitalist; ATTEND Family Medicine
DX: K62.5 Hemorrhage of anus and rectum (principal); D62 Acute posthemorrhagic anemia; J44.9 Chronic obstructive pulmonary disease, unspecified; I10 Essential (primary) hypertension; I48.2 Chronic atrial fibrillation
CPT/HCPCS: 36415; 71046; 74176; 80048; 80053; 80061; 80076; 81003; 82550; 82553; 83690; 83735; 83880; 84443; 84484; 85014; 85018; 85025; 85610; 85730; 86850; 86900; 86901; 93005; 94640; 96365; 96366; 97163; 99285; C9113; J0696; J2270; J2405; J7030; P9016

== ENCOUNTER 2017-07-15 09:22 | Observation (INO) | payer MEDICARE ==
--- OUTSIDE RECORDS SUMMARY | 2017-07-15 09:24 | XMS REPORT ---
[...] G89.4 Active Problem Mixed hyperlipidemia E78.2 Active Problem Seasonal allergic rhinitis, J30.2 Active unspecified trigger Problem Parkinson''s disease G20 Active Problem Chronic kidney disease, stage 3 N18.3 Active Medications No Known Medications Results No Known Results Summary Purpose [employer] Submission
--- OUTSIDE RECORDS SUMMARY | 2017-07-15 09:24 | XMS REPORT ---
[...] End Status Dosage System Date Date Metoprolol [facility] [id number] 50 MG Orally Active 1 tablet Tartrate Twice a day with food Symbicort [facility] 08870850680 160-4.5 MCG/ACT Active 2 puffs Inhalation Twice a day Aspirin [facility] 49352242528 325 MG Orally Active 1 tablet Once a day Pentoxifylline ER [facility] 85287717883 400 MG Orally Active 1 tablet Twice a day with meals Topiramate [facility] 50049893179 25 MG Orally Active 1 tablet Twice a day ProAir HFA [facility] 60227353532 108 (90 Base) Active 2 puffs as MCG/ACT needed Inhalation every 6 hrs Cardizem LA [facility] 68456655058 180 MG Orally Active 1 tablet Once a day Losartan [facility] [id number] 50MG Orally Active TAKE ONE Potassium Once a day TABLET BY MOUTH ONCE DAILY Senokot S [facility] [id number] 8.6-50 MG Active 1 tablet Orally Once a in the day evening as needed Perforomist [facility] 77897751833 20 MCG/2ML Active 2 ml Inhalation Twice a day Xarelto [facility] 56120140354 15 MG Orally Active 1 tablet Once a day with food Results No Known Results Summary Purpose [employer] Submission
--- OUTSIDE RECORDS SUMMARY | 2017-07-15 09:24 | XMS REPORT ---
[...] Medications Results No Known Results Summary Purpose [facility] Submission
--- NOTE | 2017-07-15 10:06 | EDPHYS ---
Physician Documentation [facility] Name: Rohan Jaquez Age: 82 yrs Sex: Male : 1935 Arrival Date: 07/15/2017 Time: 09:23 Bed 7 Private MD: ED Physician Preston Merrill HPI: 07/15 10:02 This 82 yrs old Male presents to ER via EMS with complaints of General nupur Weakness. 10:02 near syncope. The patient has experienced near-syncope, almost passed out, felt dizzy. nupur Onset: The symptoms/episode began/occurred 2 day(s) ago. Duration: The patient has had multiple episodes, that last 30 second(s). Context: the episode(s) was witnessed, by family. Onset: The symptoms/episode began/occurred just prior to arrival, this morning. Associated injury: The patient did not suffer any apparent associated injury. Associated signs and symptoms: The patient has no apparent associated signs or symptoms. Severity of symptoms: At their worst the symptoms were mild in the emergency department the symptoms are unchanged. Historical: - Allergies: 09:41 No Known Allergies; ae1 - Home Meds: 09:41 budesonide inhalation [Active]; Cardizem 180 mg Oral 1 tab daily [Active]; losartan 50 ae1 mg Oral tab 1 tab once daily [Active]; metoprolol tartrate 50 mg Oral tab 1 tab 2 times per day [Active]; Miralax 17 gram/dose Oral powd once daily [Active]; Mysoline 25 mg Oral QHS [Active]; NitroQuick SL 0.4 mg as needed [Active]; [place] 5-325 mg Oral tab 1 tab every 4 hours [Active]; pentoxifylline 400 mg Oral TbER 1 tab 2 times per day [Active]; Perforomist 20 mcg/2 mL inhalation nebu 2 mL 2 times per day [Active]; prednisone 1 mg Oral tab once daily [Active]; prednisone 10 mg Oral tab once daily [Active]; robitussin AC [Active]; Spiriva [Active]; symbicort [Active]; Topamax 25 mg Oral cpSP 2 times per day [Active]; Xarelto 15 mg Oral tab [Active]; - PMHx: 09:41 Atrial Fib; chronic renal disease; COPD; Hypertension; hypoxemia; Pneumonia; ae1 - Immunization history:: Adult Immunizations up to date. - Family history:: not pertinent. - Social history:: Smoking status: Patient/guardian denies using tobacco. ROS: 10:02 Constitutional: Negative for fever, chills, and weight loss, Eyes: Negative for injury, nupur pain, redness, and discharge, ENT: Negative for injury, pain, and discharge, Neck: Negative for injury, pain, and swelling, Cardiovascular: Negative for chest pain, palpitations, and edema, Respiratory: Negative for shortness of breath, cough, wheezing, and pleuritic chest pain, Abdomen/GI: Negative for abdominal pain, nausea, vomiting, diarrhea, and constipation, Back: Negative for injury and pain, : Negative for injury, bleeding, discharge, and swelling, MS/Extremity: Negative for injury and deformity, Psych: Negative for depression, anxiety, suicide ideation, homicidal ideation, and hallucinations, Allergy/Immunology: Negative for hives, rash, and allergies, Endocrine: Negative for neck swelling, polydipsia, polyuria, polyphagia, and marked weight changes, Hematologic/Lymphatic: Negative for swollen nodes, abnormal bleeding, and unusual bruising. 10:02 Skin: Positive for pallor. 10:02 Neuro: Positive for weakness. Exam: 10:02 Constitutional: This is a well developed, well nourished patient who is awake, alert, nupur and in no acute distress. Head/Face: Normocephalic, atraumatic. Eyes: Pupils equal round and reactive to light, extra-ocular motions intact. Lids and lashes normal. Conjunctiva and sclera are non-icteric and not injected. Cornea within normal limits. Periorbital areas with no swelling, redness, or edema. ENT: Nares patent. No nasal discharge, no septal abnormalities noted. Tympanic membranes are normal and external auditory canals are clear. Oropharynx with no redness, swelling, or masses, exudates, or evidence of obstruction, uvula midline. Mucous membranes moist. Neck: Trachea midline, no thyromegaly or masses palpated, and no cervical lymphadenopathy. Supple, full range of motion without nuchal rigidity, or vertebral point tenderness. No Meningismus. Chest/axilla: Normal chest wall appearance and motion. Nontender with no deformity. No lesions are appreciated. Cardiovascular: Regular rate and rhythm with a normal S1 and S2. No gallops, murmurs, or rubs. Normal PMI, no JVD. No pulse deficits. Respiratory: Lungs have equal breath sounds bilaterally, clear to auscultation and percussion. No rales, rhonchi or wheezes noted. No increased work of breathing, no retractions or nasal flaring. Abdomen/GI: Soft, non-tender, with normal bowel sounds. No distension or tympany. No guarding or rebound. No evidence of tenderness throughout. Back: No spinal tenderness. No costovertebral tenderness. Full range of motion. Male : Normal genitalia with no discharge or lesions. Neuro: Awake and alert, GCS 15, oriented to person, place, time, and situation. Cranial nerves II-XII grossly intact. Motor strength 5/5 in all extremities. Sensory grossly intact. Cerebellar exam normal. Normal gait. Psych: Awake, alert, with orientation to person, place and time. Behavior, mood, and affect are within normal limits. 10:02 Skin: Appearance: Color: pale. 10:02 Neuro: Orientation: is normal, appropriate for stated age, no acute changes, Mentation: is normal, appropriate for stated age, no acute changes, Cerebellar function: is grossly normal, is grossly normal based on the patient's age, no acute changes, Motor: moves all fours, Sensation: is normal, no obvious gross deficits, appropriate Gait: not tested. Babinski testing is normal, seizure activity, is not displayed by the patient. Vital Signs: 09:24 BP 167 / 79; Pulse 83; Resp 21; Temp 98.1(O); Pulse Ox 98% on 2 lpm NC; Weight 65.77 ae1 kg; Height 5 ft. 9 in. (175.26 cm); Pain 0/10; 11:19 BP 145 / 94; Pulse 107; Resp 19; Pulse Ox 99% on R/A; ae1 09:24 Body Mass Index 21.41 (65.77 kg, 175.26 cm) ae1 MDM: 09:27 Patient medically screened. [facility] 10:08 Data reviewed: vital signs, nurses notes, lab test result(s), EKG, radiologic studies, [facility] plain films, ultrasound. 07/15 10: Order name: Basic Metabolic Panel; Complete Time: 11:17 [facility] 07/15 10: Order name: BNP; Complete Time: : [facility] 07/15 10:01 Order name: CBC with Diff [facility] 07/15 10:01 Order name: Ckmb; Complete Time: 11:17 [facility] 07/15 10:01 Order name: CPK; Complete Time: 11:17 [facility] 07/15 10:01 Order name: LFT's; Complete Time: 11:17 [facility] 07/15 10:01 Order name: Magnesium; Complete Time: 11: [facility] 07/15 10:01 Order name: PT-INR; Complete Time: 11: [facility] 07/15 10:01 Order name: Ptt, Activated; Complete Time: 11: [facility] 07/15 10:01 Order name: Troponin (emerg Dept Use Only); Complete Time: 11: [facility] 07/15 10:01 Order name: Lipase; Complete Time: 11: [facility] 07/15 10:01 Order name: Urine Culture [facility] 07/15 10:01 Order name: Type And Screen [facility] 07/15 10:01 Order name: Blood Culture Adult (2) [facility] 07/15 10:01 Order name: XRAY Chest (1 view) [facility] 07/15 10:01 Order name: EKG; Complete Time: 10:02 [facility] 07/15 10:01 Order name: US Extremity Venous W Compression Nahum [facility] 07/15 10:18 Order name: Echo with Doppler [facility] 07/15 10:18 Order name: Carotid Artery Bilateral [facility] 07/15 10:20 Order name: CT Head Brain wo Cont [facility] 07/15 10:44 Order name: TSH [facility] 07/15 10:59 Order name: RAD; Complete Time: 11:17 [facility] 07/15 11:16 Order name: Pelvis XRAY [facility] 07/15 11:16 Order name: Hip Right 2 View XRAY [facility] 07/15 11:16 Order name: CT; Complete Time: 11:17 [facility] 07/15 11:28 Order name: CBC Smear Scan [facility] 07/15 10:01 Order name: Cardiac monitoring; Complete Time: 10:12 [facility] 07/15 10:01 Order name: EKG - Nurse/Tech; Complete Time: 10:22 [facility] 07/15 10:01 Order name: IV Saline Lock; Complete Time: 10:13 [facility] 07/15 10:01 Order name: Labs collected and sent; Complete Time: 10:22 [facility] 07/15 10:01 Order name: O2 Per Protocol; Complete Time: 10: [facility] 07/15 10:01 Order name: O2 Sat Monitoring; Complete Time: 10:22 [facility] Administered Medications: 11:19 Not Given (cancelled per Dr. Conway. ): NS 0.9% 1000 ml IV at 125 ml/hr continuous ae1 11:19 Not Given (cancelled Per Dr. Conway. ): Lopressor 5 mg IVP once; Hold for SBP <100 or ae1 HR <60. 11:19 Drug: Lopressor (metoprolol TARTRATE) 50 mg Route: PO; ae1 11:55 Drug: Magnesium Sulfate 1 grams Route: IVPB; Infused Over: 1 hrs; Site: right iw antecubital; Disposition: 07/15/17 10:06 Hospitalization ordered by Chaparro Conway for Observation. Preliminary diagnosis are Weakness, Syncope and collapse, Atrial fibrillation and flutter, Anemia, unspecified, Unspecified kidney failure, Hypomagnesemia. - Bed requested for Telemetry/MedSurg (observation). - Status is Observation. ae1 - Condition is Fair. - Problem is new. - Symptoms have improved. UTI on Admission? No Signatures: Dispatcher [employer] [facility] Preston Merrill MD MD cha Williams, Irene, BISI RN Bonnie Quintana Andrea, RN RN ae1 Corrections: (The following items were deleted from the chart) 10:21 10:06 Hospitalization Ordered by Chaparro Conway DO for Inpatient Admission. Preliminary nupur diagnosis is Weakness; Syncope and collapse. Bed requested for Telemetry/MedSurg (Inpatient). Status is Inpatient Admission. Condition is Fair. Problem is new. Symptoms have improved. UTI on Admission? No. nupur 11:13 10:21 07/15/2017 10:06 Hospitalization Ordered by Chaparro Conway DO for Inpatient ag Admission. Preliminary diagnosis is Weakness; Syncope and collapse; Atrial fibrillation and flutter. Bed requested for Telemetry/MedSurg (Inpatient). Status is Inpatient Admission. Condition is Fair. Problem is new. Symptoms have improved. UTI on Admission? No. nupur 11:16 11:13 07/15/2017 10:06 Hospitalization Ordered by Chaparro Conway DO for Inpatient nupur Admission. Preliminary diagnosis is Weakness; Syncope and collapse; Atrial fibrillation and flutter. Bed requested for Telemetry/MedSurg (Inpatient). Status is Inpatient Admission. Condition is Fair. Problem is new. Symptoms have improved. UTI on Admission? No. ag 11:18 11:16 07/15/2017 10:06 Hospitalization Ordered by Chaparro Conway DO for Observation. nupur Preliminary diagnosis is Weakness; Syncope and collapse; Atrial fibrillation and flutter; Anemia, unspecified. Bed requested for Telemetry/MedSurg (observation). Status is Observation. Condition is Fair. Problem is new. Symptoms have improved. UTI on Admission? No. nupur 11:38 11:18 07/15/2017 10:06 Hospitalization Ordered by Chaparro Conway DO for Observation. iw Preliminary diagnosis is Weakness; Syncope and collapse; Atrial fibrillation and flutter; Anemia, unspecified; Unspecified kidney failure; Hypomagnesemia. Bed requested for Telemetry/MedSurg (observation). Status is Observation. Condition is Fair. Problem is new. Symptoms have improved. UTI on Admission? No. nupur 12:02 11:38 07/15/2017 10:06 Hospitalization Ordered by Chaparro Conway DO for Observation. ae1 Preliminary diagnosis is Weakness; Syncope and collapse; Atrial fibrillation and flutter; Anemia, unspecified; Unspecified kidney failure; Hypomagnesemia. Bed requested for Telemetry/MedSurg (observation). Status is Observation. Condition is Fair. Problem is new. Symptoms have improved. UTI on Admission? No. iw
--- NOTE | 2017-07-15 10:06 | ER ---
Nurse's Notes [facility] Name: Rohan Jaquez Age: 82 yrs Sex: Male : 1935 Arrival Date: 07/15/2017 Time: 09:23 Bed 7 Private MD: Diagnosis: Weakness;Syncope and collapse;Atrial fibrillation and flutter;Anemia, unspecified;Unspecified kidney failure;Hypomagnesemia Presentation: 07/15 09:25 Presenting complaint: EMS states: EMS states patient c/o general weakness that started ae1 yesterday. Patient has a hx of anemia and a fib. Transition of care: patient was not received from another setting of care. Onset of symptoms was July 14, 2017. Care prior to arrival: V/S 160s systolic,FSBS 177, HR 130 running a fib. 09:25 Acuity: ANDRES 3 ae1 09:25 Method Of Arrival: EMS: [facility] ae1 12:06 Initial Sepsis Screen: Does the patient meet any 2 criteria? HR > 90 bpm. Does the ae1 patient have a suspected source of infection? No. Patient's initial sepsis screen is negative. Triage Assessment: 12:01 General: Appears in no apparent distress. comfortable, Behavior is calm, cooperative. ae1 Historical: - Allergies: 09:41 No Known Allergies; ae1 - Home Meds: 09:41 budesonide inhalation [Active]; Cardizem 180 mg Oral 1 tab daily [Active]; losartan 50 ae1 mg Oral tab 1 tab once daily [Active]; metoprolol tartrate 50 mg Oral tab 1 tab 2 times per day [Active]; Miralax 17 gram/dose Oral powd once daily [Active]; Mysoline 25 mg Oral QHS [Active]; NitroQuick SL 0.4 mg as needed [Active]; [place] 5-325 mg Oral tab 1 tab every 4 hours [Active]; pentoxifylline 400 mg Oral TbER 1 tab 2 times per day [Active]; Perforomist 20 mcg/2 mL inhalation nebu 2 mL 2 times per day [Active]; prednisone 1 mg Oral tab once daily [Active]; prednisone 10 mg Oral tab once daily [Active]; robitussin AC [Active]; Spiriva [Active]; symbicort [Active]; Topamax 25 mg Oral cpSP 2 times per day [Active]; Xarelto 15 mg Oral tab [Active]; - PMHx: 09:41 Atrial Fib; chronic renal disease; COPD; Hypertension; hypoxemia; Pneumonia; ae1 - Immunization history:: Adult Immunizations up to date. - Family history:: not pertinent. - Social history:: Smoking status: Patient/guardian denies using tobacco. Screenin:21 Abuse screen: Denies threats or abuse. Nutritional screening: No deficits noted. ae1 Tuberculosis screening: No symptoms or risk factors identified. 12:05 Fall Risk No fall in past 12 months (0 pts). No secondary diagnosis (0 pts). IV access ae1 (20 points). Ambulatory Aid- Crutches/Cane/Walker (15 pts). Gait- Weak (10 pts.). Mental Status- Oriented to own ability (0 pts). Assessment: 09:30 General: Appears in no apparent distress. comfortable, slender, Behavior is calm, ae1 cooperative. Pain: Denies pain. Neuro: Level of Consciousness is awake, alert, obeys commands, Oriented to person, place, time, situation. Cardiovascular: Heart tones S1 S2 present Patient's skin is warm and dry. Respiratory: Airway is patent Respiratory effort is even, unlabored, Respiratory pattern is regular, symmetrical, Breath sounds are clear bilaterally. Breath sounds are diminished in left posterior lower lobe and right posterior lower lobe. GI: No signs and/or symptoms were reported involving the gastrointestinal system. : No signs and/or symptoms were reported regarding the genitourinary system. EENT: wears glasses. Derm: Skin is pale. Musculoskeletal: Reports general weakness. 11:21 Reassessment: Patient appears in no apparent distress at this time. No changes from ae1 previously documented assessment. Vital Signs: 09:24 BP 167 / 79; Pulse 83; Resp 21; Temp 98.1(O); Pulse Ox 98% on 2 lpm NC; Weight 65.77 ae1 kg; Height 5 ft. 9 in. (175.26 cm); Pain 0/10; 11:19 BP 145 / 94; Pulse 107; Resp 19; Pulse Ox 99% on R/A; ae1 09:24 Body Mass Index 21.41 (65.77 kg, 175.26 cm) ae1 ED Course: 09:23 Patient arrived in ED. ae1 09:26 Preston Merrill MD is Attending Physician. nupur 09:32 Triage completed. ae1 10:00 Initial lab(s) drawn, by me, sent to lab. First set of blood cultures drawn by me. jb1 10:05 Chaparro Conway DO is Hospitalizing Provider. nupur 10:12 Junior Burrows, BISI is Primary Nurse. ae1 10:15 Second set of blood cultures drawn by me, T\T\S collected, blood band applied to patient. jb1 10:21 EKG done, by biofuels technology manager. reviewed by Preston Merrill MD. tc 10:35 X-ray completed. Portable x-ray completed in exam room. Patient tolerated procedure jb2 well. 10:[address] via stretcher. nj 10:58 Ultrasound completed. Patient tolerated well. Patient moved to CT via stretcher. cy 11:02 CT completed. Patient tolerated procedure well. Patient moved back from CT. nj 11:21 Arm band placed on right wrist. ae1 11:21 Placed in gown. Bed in low position. Call light in reach. Side rails up X2. Cardiac ae1 monitor on. Pulse ox on. NIBP on. Warm blanket given. 11:37 X-ray completed. Portable x-ray completed in exam room. Patient tolerated procedure ml well. 12:02 No provider procedures requiring assistance completed. Patient admitted, IV remains in ae1 place. Administered Medications: 11:19 Not Given (cancelled per Dr. Conway. ): NS 0.9% 1000 ml IV at 125 ml/hr continuous ae1 11:19 Not Given (cancelled Per Dr. Conway. ): Lopressor 5 mg IVP once; Hold for SBP <100 or ae1 HR <60. 11:19 Drug: Lopressor (metoprolol TARTRATE) 50 mg Route: PO; ae1 11:55 Drug: Magnesium Sulfate 1 grams Route: IVPB; Infused Over: 1 hrs; Site: right iw antecubital; Outcome: 10:06 Decision to Hospitalize by Provider. nupur 12:02 Patient left the ED. ae1 12:05 Admitted to Tele accompanied by tech, family with patient, via stretcher, with chart. ae1 12:05 Condition: stable 12:05 Discharge instructions given to patient, Instructed on the need for admit, Demonstrated understanding of instructions. Signatures: Blake Melendez jb1 Preston Merrill MD MD cha Buechter, Jesse jb2 Johanna Guerra, RN RN alberta Wilhelm, Barbara French, barrel rifler [facility] Junior Burrows RN RN ae1 Jose Frias, Sumit
[2017-07-15] MEDS ORDERED: NA CHLORIDE 0.9% 1,000 ML ONE (10:16)
[2017-07-15] MEDS ORDERED: METOPROLOL TAR 50 MG TAB ONE (10:32)
[2017-07-15] MEDS ORDERED: METOPROLOL TARTRATE 5 MG/5 ML INJ IV ONE (10:33)
[2017-07-15 10:34] LABS: Absolute Monocytes 0.8 K/uL (0.1-1.3); Absolute Neutrophil 9.3 K/uL (1.8-8.0); Basophils % 0.4 % (0-1.3); Eosinophils % 0.8 % (0-4.4); Hematocrit 29.9 % (39.6-49.0); Lymphocytes % 9.2 % (15.3-44.8); MCH 21.6 pg (27.0-35.0); MPV 8.4 fL (7.6-11.3); Monocytes % 7.5 % (3.3-12.3); RBC Red Blood Cell Count 4.16 M/uL (4.33-5.43)
[2017-07-15 10:41] LABS: Protime INR 1.31
[2017-07-15 10:42] LABS: Potassium 4.7 mEq/L (3.6-5.0)
[2017-07-15 10:48] LABS: Albumin 4.1 g/dL (3.2-5.5); Bilirubin Direct 0.1 mg/dL (0-0.2); Bilirubin Total 0.6 mg/dL (0.3-1.2); Magnesium 1.7 mg/dL (1.8-2.5); Protein, Total 7.1 g/dL (6.0-8.3)
[2017-07-15 10:50] LABS: CKMB Creatine Kinase MB 2.6 ng/ml (0.3-4.0)
--- NOTE | 2017-07-15 10:59 | RAD REPORT ---
EXAM DESCRIPTION: Betty Single View07/15/2017 10:39 am CLINICAL HISTORY: Chest pain COMPARISON: none FINDINGS: Mild bilateral interstitial opacities appear chronic. The lungs appear clear of acute infiltrate. The heart is normal size IMPRESSION: No acute abnormalities displayed
--- NOTE | 2017-07-15 11:16 | RAD REPORT ---
EXAM DESCRIPTION: CT - Head Brain Wo Cont - 07/15/2017 11:02 am CLINICAL HISTORY: Headache, altered consciousness, weakness COMPARISON: 07/08/2016 TECHNIQUE: All CT scans are performed using dose optimization technique as appropriate and may inclu de automated exposure control or mA/KV adjustment according to patient size. FINDINGS: No intracranial hemorrhage, hydrocephalus or extra-axial fluid collection.Moderate general ized brain atrophy is present.No areas of brain edema or evidence of midline shift. The paranasal sinuses and mastoids are clear. The calvarium is intact. Vertebral arteries are calcifi ed bilaterally. IMPRESSION: No acute intracranial abnormality. Moderate global brain atrophy.
--- NOTE | 2017-07-15 11:20 | RAD REPORT ---
EXAM DESCRIPTION: [facility] - CP - 07/15/2017 10:58 am CLINICAL HISTORY: CVA, syncope COMPARISON: 07/08/2016 TECHNIQUE: Real-time sonographic evaluation of both carotid systems was performed. Doppler interroga tion was performed with waveform tracing bilaterally. FINDINGS: Normal high resistance waveforms are noted in both external carotid arteries. The common c arotid arteries and internal carotid arteries show normal low resistance waveforms. Mild hard plaquing is seen in both carotid bulbs. Peak systolic and end diastolic velocity values and the ICA/CCA ratios are in the non-hemodynamically significant range. Antegrade flow seen in both vertebral arteries. IMPRESSION: Mild hard plaquing is seen in both carotid bulbs. No evidence of a hemodynamically significant stenosis.
[2017-07-15] MEDS ORDERED: NITROGLYCERIN 0.4 MG/TAB SL PRN (11:22)
[2017-07-15] MEDS ORDERED: IPRATROPIUM BROM 0.5MG/2.5ML NEB PRN (11:22)
[2017-07-15] MEDS ORDERED: TRAMADOL HCL 50 MG TAB PO PRN (11:22)
[2017-07-15] MEDS ORDERED: ONDANSETRON 4 MG/2 ML VIAL IV PRN (11:22)
[2017-07-15] MEDS ORDERED: ACETAMINOPHEN 500 MG TAB PO PRN (11:22)
[2017-07-15] MEDS ORDERED: ALBUTEROL 2.5 MG/3 ML NEB SOL NEB PRN (11:22)
[2017-07-15] MEDS ORDERED: HYDROCODONE/APAP 7.5/325 MG TAB PO PRN (11:22)
[2017-07-15 11:27] LABS: Urine White Blood Cell Casts OK
[2017-07-15 11:28] LABS: Anisocytosis 2+; Blood Morphology Comment NOTED (NOT SEEN); Hypochromasia 2+; Platelet Estimate ADEQ
--- NOTE | 2017-07-15 11:38 | P.HP ---
Certification for Inpatient Patient admitted to: Observation With expected LOS: <2 Midnights Patient will require the following post-hospital care: Other Practitioner: I am a practitioner with admitting privileges, knowledge of patient current condition, hospital course, and medical plan of care. Services: Services provided to patient in accordance with Admission requirements found in Title 42 Section 412.3 of the Code of Federal Regulations Patient History Date of Service: 07/15/17 Primary Care Provider: Dr. Vela; Cardiology-Dr. Velasco; Pulmonary-Dr. Starks; GI-Dr. Villavicencio Reason for admission: Presyncope, shortness of breath History of Present Illness: 82-year-old male presented to the ER with presyncope and shortness of breath. Patient reported presyncope earlier today. He had some shortness of breath as well. He felt like he was going to faint but he did not. He denied any fever. No chest pain noted. He reported some night sweats. The shortness of breath got worse today. He has reported some left lower extremity edema. He further tells me that he was recently evaluated by GI last week for chronic melena. He had an upper endoscopy and colonoscopy which showed no bleeding. Patient has past medical history of COPD on chronic steroids, hypertension, atrial fibrillation on chronic anti coagulation therapy, peripheral vascular disease, chronic renal disease, anemia and uses home oxygen. In the ER he was found to be in atrial fibrillation with a rate of 130. Patient given medication with improvement. Initial blood work shows a hemoglobin of 9.0. White count 11.3. Sodium 139, potassium 4.7, BUN of 29, creatinine 1.45 with a GFR 47. Magnesium 1.7. Initial troponin less than 0.03. BNP at 218. Chest x-ray showed possible fluid overload. CT of the head showed no acute changes. Carotid Doppler showed mild plaque but no significant stenosis. Due to the nature of his symptoms the patient was admitted for further evaluation. When I saw the patient the ER, patient appeared improved. Rate was around 110. Blood pressure slightly elevated. Patient had reported a fall last week. He has a history of pelvic fracture. Patient also reports some swelling to the left lower extremity. X-ray of the right hip and pelvis is pending. Venous Doppler of the lower extremity also pending. Patient no longer smokes or drinks alcohol. Patient reports needing assistance with home health. Allergies No Known Allergies Allergy (Verified 04/26/18 08:56) Home medications list reviewed: Yes Home Medications: Pentoxifylline 400 mg PO TID 11/21/15 Losartan Potassium [Cozaar*] 25 mg PO DAILY 04/24/16 Metoprolol Tartrate [Lopressor] 50 mg PO DAILY 06/26/16 Rivaroxaban [Xarelto*] 15 mg PO DAILY #30 tablet 07/10/16 Diphenhydramine [Benadryl*] 25 mg PO Q6HP PRN 11/03/16 Hydrochlorothiazide 25 mg PO DAILY 11/03/16 Prednisone [Deltasone*] 10 mg PO DAILY 11/03/16 Topiramate 25 mg PO DAILY 06/17/17 Pantoprazole Sodium [Protonix] 40 mg PO BID #60 tablet. 06/18/17 - Past Medical/Surgical History Diabetic: No -: HTN -: COPD, chronic steroids, oxygen dependent -: L rotator cuff injury with chronic pain -: Chronic pain-Pain management-Dr. Merida. 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 - Family History Father -: Heart disease, Hypertension, Lung disease Mother -: Heart disease Brother -: Lung disease daughter -: Cancer - Social History Smoking Status: Former smoker Alcohol use: No CD- Drugs: No Caffeine use: No Place of Residence: Home Review of Systems General: Weakness, Malaise, As per HPI Eyes: Unremarkable ENT: Unremarkable Respiratory: Shortness of Breath, SOB with Excertion, As per HPI Cardiovascular: Edema, Light Headedness, As per HPI Gastrointestinal: Melena Genitourinary: Unremarkable Musculoskeletal: As per HPI Integumentary: As per HPI Neurological: Unremarkable Lymphatics: Unremarkable Physical Examination - Physical Exam General: Alert, In no apparent distress, Oriented x3, Cooperative HEENT: Atraumatic, Normocephalic, PERRLA, Mucous membr. moist/pink Neck: Supple, No Thyromegaly Respiratory: Diminished (Slightly diminished to the lower bases), Expiratory wheezes (Bilateral) Cardiovascular: Irregular heart rate/rhythm (Atrial fibrillation, rate around 110) Gastrointestinal: Normal bowel sounds, Soft and benign, Non-distended, No tenderness, No masses, No rebound, No guarding Musculoskeletal: No tenderness, No warmth Integumentary: Tenderness/swelling (Mild swelling to the left lower extremity compared to the right.), Other (Mild erythema to the 2nd digit on the left foot. Mild pain noted to palpation to the right hip region.) Neurological: Normal speech, Normal strength at 5/5 x4 extr, Normal tone, Normal affect Assessment and Plan - Problems (Diagnosis) (1) Pre-syncope Current Visit: Yes Status: Acute Plan: This is likely multifactorial. Patient likely with mild COPD/CHF exacerbation. This likely lead to his presyncope episode. Patient found to have atrial fibrillation with RVR. As for his atrial fibrillation will continue with metoprolol. Patient already on chronic anti coagulation therapy-Xarelto. Will verify home medications. Cardiology consulted. Will order echocardiogram. Carotid Doppler showed no acute stenosis. For his COPD will start Solu-Medrol and COPD treatment. Will maintain sats above 90%. Patient uses home oxygen. Will consult pulmonology for further recommendation. For his CHF will check echocardiogram. Will provide Lasix. Will continue fluid restriction. Will monitor closely. Reassess tomorrow. Will have social services counselor evaluate for home health services at discharge. (2) Anemia Current Visit: Yes Status: Chronic Plan: Patient recently evaluated by GI for chronic melena. H&H stable this time. He reports EGD and colonoscopy showed no bleeding. Will monitor hemoglobin. Qualifiers: Anemia type: due to chronic kidney disease Chronic kidney disease stage: stage 2 (mild) Qualified Code(s): N18.2 - Chronic kidney disease, stage 2 ( mild); D63.1 - Anemia in chronic kidney disease (3) Chronic renal disease Current Visit: Yes Status: Chronic Plan: Overall stable. Will monitor closely. Qualifiers: Chronic kidney disease stage: stage 2 (mild) Qualified Code(s): N18.2 - Chronic kidney disease, stage 2 (mild) (4) History of recent fall Current Visit: Yes Status: Acute Plan: Will physical therapy assess ambulation. Will check x-ray of the right hip and pelvis. Will also get foot x-ray. (5) Right hip pain Current Visit: Yes Status: Acute Plan: Will obtain x-ray to rule out fracture. (6) Foot pain, left Current Visit: Yes Status: Acute Plan: Will obtain x-ray to rule out fracture. Patient has chronic wound to the 2nd toe. Will have wound care evaluate and treat. (7) Edema Current Visit: Yes Status: Acute Plan: Likely from CHF. Will continue with fluid restriction and Lasix. Will obtain venous Doppler to rule out DVT. Patient already on chronic anti coagulation therapy with history of PVD. Qualifiers: Edema type: unspecified Qualified Code(s): R60.9 - Edema, unspecified (8) PVD (peripheral vascular disease) Current Visit: Yes Status: Chronic Plan: Continue with medication. (9) Chronic anticoagulation Current Visit: Yes Status: Chronic Plan: Continue with medication. (10) Chronic use of steroids Current Visit: Yes Status: Chronic Plan: Will continue with steroids. (11) GERD (gastroesophageal reflux disease) Current Visit: Yes Status: Chronic Plan: Will provide medication. Will try to obtain recent EGD and colonoscopy results. Qualifiers: Esophagitis presence: esophagitis presence not specified Qualified Code(s) : K21.9 - Gastro-esophageal reflux disease without esophagitis (12) Hypomagnesemia Current Visit: Yes Status: Acute Plan: Will monitor and replace appropriately. Replacement protocol in place. (13) Atrial fibrillation with rapid ventricular response Onset Date: 04/28/16 Current Visit: No Status: Acute Plan: This likely was exacerbated by COPD and CHF exacerbation. Will continue with medication. Patient on chronic anti coalition therapy. Cardiology consulted. Echocardiogram pending. Will confirm home medications. (14) COPD (chronic obstructive pulmonary disease) Onset Date: 04/28/16 Current Visit: No Status: Acute Plan: Patient with mild COPD exacerbation. Will continue as above. Pulmonology consulted. Qualifiers: COPD type: COPD with acute exacerbation Qualified Code(s): J44.1 - Chronic obstructive pulmonary disease with (acute) exacerbation (15) Chronic pain disorder Onset Date: 11/05/16 Current Visit: No Status: Chronic Plan: Will provide medication as needed. (16) Chronic renal disease Onset Date: 11/05/16 Current Visit: No Status: Chronic Plan: Overall stable. Will monitor closely. Qualifiers: Chronic kidney disease stage: stage 2 (mild) Qualified Code(s): N18.2 - Chronic kidney disease, stage 2 (mild) (17) HTN (hypertension) Current Visit: No Status: Chronic Plan: Will continue with medication. Will need to verify home medication. Qualifiers: Hypertension type: essential hypertension Qualified Code(s): I10 - Essential (primary) hypertension Discharge Plan: Home Plan to discharge in: 24 Hours - Advance Directives Does patient have a Living Will: No Does patient have a Durable POA for Healthcare: No - Code Status/Comfort Care Code Status Assessed: Yes (This was addressed in detail. Patient understands clearly.) Time Spent Managing Pts Care (In Minutes): 55
[2017-07-15] MEDS ORDERED: MAGNESIUM SULFATE 1 gm IVPB 1 GM/100 ML BAG IV ONE (11:50)
--- NOTE | 2017-07-15 12:21 | RAD REPORT ---
EXAM DESCRIPTION: RAD - Hip Right 2 View - 07/15/2017 11:44 am CLINICAL HISTORY: Fall, right hip pain. COMPARISON: None. FINDINGS: No acute fracture or dislocation is seen. No aggressive marrow lesion. Vascular calcificat ions are present.
--- NOTE | 2017-07-15 12:24 | RAD REPORT ---
EXAM DESCRIPTION: RAD - Pelvis - 07/15/2017 11:44 am CLINICAL HISTORY: Fall, right hip pain COMPARISON: None. FINDINGS: No fracture, dislocation or radiographic evidence of AVN. IMPRESSION: No fracture seen. If there are continued clinical symptoms, MR imaging would be suggeste d for followup.
--- NOTE | 2017-07-15 12:33 | RAD REPORT ---
EXAM DESCRIPTION: RAD - Foot Left 3 View - 07/15/2017 11:51 am CLINICAL HISTORY: Left toe pain COMPARISON: None. FINDINGS: Soft tissue swelling affects the distal second digit. No fracture is present.
[2017-07-15] MEDS ORDERED: METHYLPREDNISOLONE 125 MG INJ IV SCH (14:00)
[2017-07-15 15:50] LABS: Urine Appearance CLEAR; Urine Bilirubin NEGATIVE (NEG); Urine Blood NEGATIVE (NEG); Urine Color YELLOW; Urine Glucose NEGATIVE (NEG); Urine Protein NEGATIVE (NEG); Urine Urobilinogen 0.2 mg/dL (0.2-1.0)
--- NOTE | 2017-07-15 15:50 | EKG ---
Test Date: 2017-07-15 Test Time: 10:11:39 Exercise Specialist: VH/T MEASUREMENT RESULTS: Intervals: Rate: 110 DC: QRSD: 106 QT: 342 QTc: 462 Ebro: P: DC: QRS: 64 T: 43 INTERPRETIVE STATEMENTS: Atrial fibrillation with rapid ventricular response with premature ventricular or aberrantly conducted complexes Incomplete right bundle branch block Nonspecific ST and T wave abnormality, probably digitalis effect Abnormal ECG Compared to ECG 06/17/2017 22:14:11 Ventricular premature complex(es) now present ST (T wave) deviation now present Electronically Signed On 07-15-17 15:50:13 CDT by Adi Velasco
[2017-07-15 15:52] LABS: Urine Microscopic Reflex NO UMIC
--- NOTE | 2017-07-15 16:50 | P.CNS ---
Date of Consult: 07/15/17 Primary Care Provider: Dr. Vela; Cardiology-Dr. Velasco; Pulmonary-Dr. Starks; GI-Dr. Villavicencio Chief Complaint: Presyncope, shortness of breath History of Present Illness: Patient is 82 years of age well known to me with a history of COPD was recently diagnosed with Parkinson's disease by Neurology the [facility] for dopamine scan and [facility] in addition he was found to have a colon mass possible cancer and was advised to see a GI surgeon. He had been having near syncopal attacks feeling dizzy although he has never blacked out and been having difficulty walking complaining of this feet been swollen coughing up some clear yellow sputum at times he has some more dyspnea on the past couple of weeks no history of incontinence Dalia was admitted to the hospital compliant with his bronchodilators apparently he uses Perforomist add Symbicort at home Allergies No Known Allergies Allergy (Verified 06/30/17 08:56) Home Medications: Pentoxifylline 400 mg PO DAILY 11/21/15 Losartan Potassium [Cozaar*] 50 mg PO DAILY 04/24/16 Metoprolol Tartrate [Lopressor] 50 mg PO BIDWM 06/26/16 Rivaroxaban [Xarelto*] 15 mg PO DAILY #30 tablet 07/10/16 Diphenhydramine [Benadryl*] 25 mg PO Q6HP PRN 11/03/16 Hydrochlorothiazide 25 mg PO DAILY 11/03/16 Prednisone [Deltasone*] 10 mg PO DAILY PRN 11/03/16 Topiramate 25 mg PO BID 06/17/17 Pantoprazole Sodium [Protonix] 40 mg PO BID #60 tablet. 06/18/17 Budesonide [Pulmicort] 0.25 mg IH DAILY 07/15/17 Budesonide/Formoterol Fumarate [Symbicort 80-4.5 Mcg Inhaler] 1 puff IH DAILY Carbidopa/Levodopa 25-100 [Sinemet 25-100] 1 tab PO TID 07/15/17 Diltiazem HCl [Cartia Xt] 180 mg PO DAILY 07/15/17 Nitroglycerin 0.4 mg SL Q5M PRN 07/15/17 Polyethylene Glycol 3350 [Miralax] 17 gm PO DAILY PRN 05/11/18 - Past Medical/Surgical History Diabetic: No -: HTN -: COPD, chronic steroids, oxygen dependent -: L rotator cuff injury with chronic pain -: Chronic pain-Pain management-Dr. Merida. 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 - Family History Father Medical History: Heart disease, Hypertension, Lung disease Mother Medical History: Heart disease Brother Medical History: Lung disease daughter Medical History: Cancer - Social History Smoking Status: Former smoker (quit 3 years ago) Alcohol use: No CD- Drugs: No Caffeine use: Yes Place of Residence: Home Review of Systems General: Weakness Respiratory: Cough, Shortness of Breath Neurological: Weakness Physical Examination Temp Pulse Resp BP Pulse Ox 98.8 F 92 H 16 145/64 H 99 07/15/17 14:37 07/15/17 14:37 07/15/17 14:37 07/15/17 14:37 07/15/17 14:37 General: Alert, Oriented x3 Neck: Supple Respiratory: Expiratory wheezes Cardiovascular: Normal S1 S2, Edema (Patient has 2+ edema) Gastrointestinal: Normal bowel sounds, Soft and benign Musculoskeletal: No clubbing, No swelling Integumentary: No rashes, No breakdown Neurological: Normal speech - Problems (1) COPD (chronic obstructive pulmonary disease) Onset Date: 04/28/16 Current Visit: No Status: Acute Plan: Patient is 82 years of age well known to me with a history of severe COPD the he has been using Perforomist and Symbicort at home admitted with feeling dizzy has not been able to ambulate uses a walker at home recently diagnosed with Parkinson's disease he also has a colonic mass patient has a mild microcytic anemia abnormal renal function oxygenation is satisfactory 98% on 2 L blood pressure is stable chest x-ray shows nonspecific interstitial changes with COPD will check his orthostatic blood pressures is quite possible that he may have multiple system atrophy will ambulate patient in addition he had an echo done last year which shows normal left ventricular function will need to repeat check room air arterial blood gases is currently on Lasix patient's tsh is normal last B 12 done 2 years ago was within normal limits agree with holding beta-blockers and Cardizem Qualifiers: COPD type: COPD with acute exacerbation Qualified Code(s): J44.1 - Chronic obstructive pulmonary disease with (acute) exacerbation
[2017-07-15 17:25] LABS: Arterial Blood Carboxyhemoglob 1.9 % (0-1.5); Blood Gas Oxyhemoglobin 90.8 % (94-97); Blood O2 Saturation 92.9 % (92-98.5)
--- NOTE | 2017-07-15 17:32 | ECHO ---
HEIGHT: 5 ft 9 in WEIGHT: 145 lb 0 oz DATE OF STUDY: 07/15/[address]: Chaparro Conway DO 2-DIMENSIONAL: YES M.MODE: YES DOPPLER: YES COLOR FLOW: YES TDS: YES PORTABLE: DEFINITY: BUBBLE STUDY: DIAGNOSIS: SHORTNESS OF BREATH CARDIAC HISTORY: CATHERIZATION: NO SURGERY: NO PROSTHETIC VALVE: NO PACEMAKER: NO MEASUREMENTS (cm) DIASTOLIC (NORMALS) SYSTOLIC (NORMALS) IVSd 1.1 (0.6-1.2) LA Diam 3.6 (1.9-4.0) LVEF 51-55% LVIDd 3.9 (3.5-5.7) LVIDs 3.0 (2.0-3.5) %FS % LVPWd 1.1 (0.6-1.2) Ao Diam 2.0 (2.0-3.7) 2 DIMENSIONAL ASSESSMENT: RIGHT ATRIUM: NORMAL LEFT ATRIUM: NORMAL RIGHT VENTRICLE: NORMAL LEFT VENTRICLE: NORMAL TRICUSPID VALVE: NORMAL MITRAL VALVE: NORMAL PULMONIC VALVE: NORMAL AORTIC VALVE: NORMAL PERICARDIAL EFFUSION: NONE AORTIC ROOT: NORMAL LEFT VENTRICULAR WALL MOTION: DECREASED LEFT VENTRICULAR COMPLIANCE DOPPLER/COLOR FLOW: MILD TRICUSPID REGURGITATION. NORMAL RIGHT VENTRICULAR SYSTOLIC PRESSURE. COMMENTS: VERY TECHNICALLY DIFFICULT STUDY. NORMAL EJECTION FRACTION. DECREASED LEFT VENTRICULAR COMPLIANCE. MILD TRICUSPID REGURGITATION. NORMAL RIGHT VENTRICULAR SYSTOLIC PRESSURE. TECHNOLOGIST: MANJU ALDANA
[2017-07-15 18:00] LABS: CKMB Creatine Kinase MB 2.4 ng/ml (0.3-4.0)
[2017-07-15] MEDS: ARFORMOTEROL TARTRATE 15 MCG/2 ML VIAL.NEB NEB SCH (20:07)
[2017-07-15 20:11] VITALS: BMI 21.4
[2017-07-15] MEDS: predniSONE 20 MG TAB PO SCH (20:57)
[2017-07-15] MEDS: RIVAROXABAN 15 MG TABLET PO SCH (20:57)
[2017-07-15] MEDS: PENTOXIFYLLINE ER 400 MG TAB PO SCH (20:57)
[2017-07-15] MEDS: METOPROLOL TAR 50 MG TAB PO SCH (20:57)
[2017-07-16 02:52] LABS: CKMB Creatine Kinase MB 3.6 ng/ml (0.3-4.0)
[2017-07-16 05:25] LABS: Absolute Lymphocytes (CBC) 0.8 K/uL (0.7-4.9); Absolute Monocytes 0.2 K/uL (0.1-1.3); Absolute Neutrophil 8.1 K/uL (1.8-8.0); Basophils % 0.1 % (0-1.3); Hematocrit 30.7 % (39.6-49.0); Lymphocytes % 8.6 % (15.3-44.8); MCH 21.9 pg (27.0-35.0); MPV 8.8 fL (7.6-11.3); Monocytes % 2.3 % (3.3-12.3); RBC Red Blood Cell Count 4.26 M/uL (4.33-5.43)
[2017-07-16] MEDS: PANTOPRAZOLE 40MG TABLET PO SCH (05:47)
[2017-07-16 05:50] LABS: Magnesium 2.1 mg/dL (1.8-2.5); Potassium 4.6 mEq/L (3.6-5.0)
[2017-07-16] MEDS: METOPROLOL TAR 50 MG TAB PO SCH ×2 (08:19→21:00)
[2017-07-16] MEDS: FUROSEMIDE 20 MG/ 2ML VIAL IV SCH (08:19)
[2017-07-16] MEDS: predniSONE 20 MG TAB PO SCH ×2 (08:19→21:43)
[2017-07-16] MEDS: PENTOXIFYLLINE ER 400 MG TAB PO SCH ×2 (08:19→21:43)
[2017-07-16] MEDS: DILTIAZEM HCL 180 MG SR CAP PO SCH (08:20)
[2017-07-16] MEDS: TIOTROPIUM 5 SPRAYS/INHALER IH SCH (08:21)
[2017-07-16] MEDS: RIVAROXABAN 15 MG TABLET PO SCH ×2 (08:21→21:43)
[2017-07-16] MEDS: ARFORMOTEROL TARTRATE 15 MCG/2 ML VIAL.NEB NEB SCH ×2 (12:10→20:38)
--- NOTE | 2017-07-16 14:31 | CON ---
Date of Consultation: 07/15/2017 Admitted on 07/15/2017, seen on 07/15/2017. Reason For Consultation: Syncope. History Of Present Illness: Mr. Jaquez is an 82-year-old male, came in with weakness and syncope. He denies any chest pain, shortness of breath, nausea, vomiting, diaphoresis, PND, orthopnea, or ped al edema. Past Medical History: Include atrial fibrillation, chronic renal disease, COPD on oxygen, hypertensi on, history of pneumonia, history of colonic mass. Medications: Include Cardizem, multiple inhalers, losartan, metoprolol, Trental, and Xarelto. Review of Systems: Positive for being a DNR. Social History: Unremarkable. Family History: Noncontributory. Physical Examination: General: The patient appears to be alert and oriented x3. Complained mostly of being very weak and u nable to walk and requesting rehab. Vital Signs: Stable. Afebrile. HEENT: Negative. Neck: Supple. No bruit. Chest: Clear. Cardiac: Revealed atrial fibrillation. Extremities: Revealed no clubbing, cyanosis, or edema. Diagnostic Data: White count was 11,000, creatinine is 1.45, hemoglobin 9. EKG, atrial fibrillation. Chest x-ray is negative. Carotid is negative. Echocardiogram is negative. CT of his head is nega tive. Impression And Plan: 1.Syncope, may have been secondary to orthostatic hypotension. I would personally hold his beta-blo cker and Cardizem for now and we will watch and see what the blood pressure does. 2.Elevated white count, elevated creatinine and hemoglobin. Consistent with moderate renal insuffic iency. 3.Atrial fibrillation that is chronic, well controlled. Rate controlled on Xarelto. We will hold th e metoprolol and the Cardizem for now. Continue his losartan. 4.Peripheral vascular disease, on Trental. 5.Hypertension. 6.History of pneumonia. 7.Severe chronic obstructive pulmonary disease, on oxygen. 8.History of colonic mass. Mr. Jaquez Already had an echocardiogram that was normal. I do not re commend any further cardiac workup at this point. ALBINO/TG Voice ID: [id number] Report ID: [id number]
--- NOTE | 2017-07-16 18:40 | PN ---
Error please delete MTDD
--- NOTE | 2017-07-16 20:22 | PN ---
Subjective: The patient is currently lying in bed. He looks comfortable. He is irritated. He is u pset he wants to go to rehab and he does not think he need a [facility]. He feel he can take care of himself. He had no chest pain. No abdominal pain. No shortness of breath. He feels he was over medicated. Review of Systems: Otherwise negative. Physical Examination: Vital Signs: Blood pressure is 130/69, respiratory rate 16, pulse 97, temperature 96.6, saturating 9 4 on room air. General: He is alert and oriented x3. Does not look in any distress. HEENT: Atraumatic, normocephalic. PERRLA. Oral mucosa is moist. Neck: Supple. No JVD. No carotid bruits. Chest: Decreased breath sound at the bases with expiratory wheezing. Heart: Regular rate and rhythm. No gallop or murmur. Abdomen: Soft, nontender. No masses. Positive bowel sounds. Extremities: No clubbing, no cyanosis. He does have blood edema on lower extremity with affected na ils mostly fungal infection. Neuro: Grossly intact. Cranial exam 2 through 12 intact. Normal sensation. Normal reflexes. Norm al muscle strength. Laboratory Data: Currently blood work today; CBC was normal except for hemoglobin 9.3, platelet 274. Chemistry within normal except for BUN of 32, creatinine of 1.6. Glucose 137, cardiac enzymes were negative. BNP at 218, B12 623, TSH 0.52, MCV of 72. Assessment And Plan: 1.Presyncope. Blood pressure medication related according to Cardiology, Dr. Baez sti ll pending. The patient with history of atrial fibrillation. Continue metoprolol and he is at this point, rate controlled. Continue anticoagulation with Xarelto. Carotid Doppler without any acute st enosis. Echocardiogram done and showed typically difficult study, normal ejection fraction, decrease d left ventricular compliance, mild tricuspid regurgitation. Normal right ventricular systolic press ure. 2.Anemia chronic with low MCV. I will check iron profile, the patient apparently had colon mass, al so I could not find the records for. The patient had EGD showed some duodenitis. The patient needs to follow up with his primary care physician about that time, and he was advised if he actually have the colon mass, he need to see a surgeon to remove that. Again I could not find confirmation in that in our system. We will check iron profile and start the patient on iron tablet, he is iron deficien t. 3.History of chronic obstructive pulmonary disease. Continue home inhalers as before. Appreciate Rob Starks's note. 4.Hip and foot pain. X-ray done did not show any signs of fracture in the foot or the buttock area. 5.Complex social issue. We will need to obtain a physical therapy and maybe an inpatient rehab vers [facility] with PT/OT. Probably, the patient will stay until Tuesday to have a clear plan for dis charge. SOY/TG Voice ID: [id number] Report ID: [id number]
[2017-07-16] MEDS ORDERED: METOPROLOL TAR 25 MG TAB PO ONE (21:28)
[2017-07-17 05:15] LABS: Absolute Lymphocytes (CBC) 0.7 K/uL (0.7-4.9); Absolute Monocytes 0.4 K/uL (0.1-1.3); Absolute Neutrophil 10.3 K/uL (1.8-8.0); Basophils % 0.1 % (0-1.3); Hematocrit 28.5 % (39.6-49.0); MCH 21.6 pg (27.0-35.0); MCV 71.4 fL (80-100); MPV 9.1 fL (7.6-11.3); Monocytes % 3.9 % (3.3-12.3)
[2017-07-17 05:33] LABS: Potassium 4.7 mEq/L (3.6-5.0)
[2017-07-17] MEDS: PANTOPRAZOLE 40MG TABLET PO SCH (05:33)
[2017-07-17] MEDS: ARFORMOTEROL TARTRATE 15 MCG/2 ML VIAL.NEB NEB SCH ×2 (08:06→19:53)
[2017-07-17] MEDS: RIVAROXABAN 15 MG TABLET PO SCH ×2 (09:00→20:36)
[2017-07-17] MEDS: DILTIAZEM HCL 180 MG SR CAP PO SCH (09:54)
[2017-07-17] MEDS: TIOTROPIUM 5 SPRAYS/INHALER IH SCH (09:54)
[2017-07-17] MEDS: PENTOXIFYLLINE ER 400 MG TAB PO SCH ×2 (09:55→20:36)
[2017-07-17] MEDS: predniSONE 20 MG TAB PO SCH ×2 (09:55→20:35)
[2017-07-17] MEDS: FUROSEMIDE 20 MG/ 2ML VIAL IV SCH (09:56)
[2017-07-17] MEDS: METOPROLOL TAR 50 MG TAB PO SCH ×2 (09:56→20:37)
[2017-07-17] MEDS: FERROUS SULFATE 325 MG TAB PO SCH ×2 (15:13→20:37)
--- NOTE | 2017-07-17 15:37 | PN ---
Subjective: Currently the patient lying in bed. He looks good. He have no chest pain. No abdomina l pain. No fever or chills. He is in better mood today. Review of Systems: Otherwise, negative. Physical Examination: Vital Signs: Blood pressure is 151/74, respiratory rate 18, pulse 95, temperature 97.7, saturating 9 4% on room air. General: He is fully alert, oriented x3. Does not look in any distress. HEENT: Atraumatic, normocephalic. PERRLA. Oral mucosa is moist. Neck: Supple. No JVD. No carotid bruits. Chest: Clear to auscultation except decreased breath sounds in the bases with some expiratory wheezi ng. Heart: Regular rate and rhythm. S1, S2 normal. No gallop. Abdomen: Soft, nontender. No masses. No hepatosplenomegaly. Positive bowel sounds. Extremities: No clubbing, no cyanosis. +1 edema and infected nails. Neuro: Grossly intact. Laboratory Data: Today, showed CBC was normal with white blood cells 11, hemoglobin 8.6, platelet 25 7. Chemistry within normal except for BUN 44, creatinine 1.51. Iron profile showed severe iron defi ciency. Stool occult blood is still pending. Assessment And Plan: 1.Presyncope. Cardiology consult noted. Dr. Baez is seeing that because of orthostatic hypotens ion. Cardizem and beta mirian on hold for now. Blood pressure is borderline controlled still. Ech ocardiogram noted with normal ejection fraction. 2.History of atrial fibrillation, rate controlled even off beta mirian. Continue Xarelto as before . 3.Hip and foot pain. X-ray did not show any signs of fracture. 4.Microcytic anemia. Iron profile showed severe iron deficiency. The patient had EGD recently but I do not see any evidence of colonoscopy though the patient is stating that he had a colonoscopy and he had a colon mass which was not resected yet. I strongly advised that he discuss that with the [facility] physician and make sure he is referred to see GI. In the meantime, I will start him on iro n tablet 325 mg 3 times a day. He was advised to take that at home with vitamin C or orange juice. 5.History of chronic obstructive pulmonary disease. Continue him on home inhalers with albuterol, B rovana, Spiriva. 6.Discharge plan to rehab if insurance will approve that. The patient does not have a good social s upport and he has apparently a sister care for him but he feels too strong to go home at this point. Social work consult requested for rehab placement in a.. SOY/TG Voice ID: [id number] Report ID: [id number]
[2017-07-18 04:12] LABS: Absolute Lymphocytes (CBC) 0.8 K/uL (0.7-4.9); Absolute Monocytes 0.4 K/uL (0.1-1.3); Absolute Neutrophil 9.6 K/uL (1.8-8.0); Basophils % 0.1 % (0-1.3); Hematocrit 27.2 % (39.6-49.0); Lymphocytes % 7.1 % (15.3-44.8); MCH 22.2 pg (27.0-35.0); MCV 70.2 fL (80-100); MPV 8.7 fL (7.6-11.3); RBC Red Blood Cell Count 3.88 M/uL (4.33-5.43)
[2017-07-18 04:51] LABS: Magnesium 2.1 mg/dL (1.8-2.5); Potassium 4.2 mEq/L (3.6-5.0)
[2017-07-18] MEDS: PANTOPRAZOLE 40MG TABLET PO SCH (06:34)
[2017-07-18] MEDS: FUROSEMIDE 20 MG/ 2ML VIAL IV SCH (08:41)
[2017-07-18] MEDS: PENTOXIFYLLINE ER 400 MG TAB PO SCH ×2 (08:41→21:02)
[2017-07-18] MEDS: FERROUS SULFATE 325 MG TAB PO SCH ×3 (08:41→21:00)
[2017-07-18] MEDS: TIOTROPIUM 5 SPRAYS/INHALER IH SCH (08:41)
[2017-07-18] MEDS: predniSONE 20 MG TAB PO SCH ×2 (08:42→21:00)
[2017-07-18] MEDS: RIVAROXABAN 15 MG TABLET PO SCH ×2 (08:43→21:00)
[2017-07-18] MEDS: DILTIAZEM HCL 180 MG SR CAP PO SCH (09:00)
[2017-07-18] MEDS: ARFORMOTEROL TARTRATE 15 MCG/2 ML VIAL.NEB NEB SCH ×2 (11:20→19:42)
--- NOTE | 2017-07-18 16:52 | P.PN ---
Subjective Date of Service: 07/18/17 Primary Care Provider: Dr. Vela; Cardiology-Dr. Velasco; Pulmonary-Dr. Starks; GI-Dr. Villavicencio Chief Complaint: Presyncope, shortness of breath Subjective: Improving Physical Examination - Vital Signs Temperature: 97.0 F Blood Pressure: 140/64 Pulse: 64 Respirations: 18 Pulse Ox (%): 97 - Physical Exam General: Alert, In no apparent distress, Oriented x3, Cooperative HEENT: Atraumatic Neck: Supple Respiratory: Clear to auscultation bilaterally, Normal air movement Cardiovascular: Normal pulses, Regular rate/rhythm Gastrointestinal: Normal bowel sounds, Soft and benign, Non-distended, No tenderness, No masses, No rebound, No guarding Musculoskeletal: No erythema, No tenderness, No warmth Integumentary: No tenderness/swelling, No erythema, No warmth, No cyanosis Neurological: Normal speech, Normal strength at 5/5 x4 extr, Normal tone, Normal affect - Studies Medications List Reviewed: Yes Assessment & Plan - Problems (Diagnosis) (1) Pre-syncope Onset Date: 07/18/17 Current Visit: Yes Status: Acute Plan: This is likely multifactorial. Patient likely with mild COPD/CHF exacerbation. Patient doing well this time. Patient being evaluated for possible inpatient rehab transfer. Patient doing well with physical therapy. Adjustments made by pulmonology. Anticipate possible discharge to inpatient rehab tomorrow or home with home health and physical therapy. (2) Anemia Onset Date: 07/18/17 Current Visit: Yes Status: Chronic Plan: Patient recently evaluated by GI for chronic melena. H&H stable this time. He reports EGD and colonoscopy showed no bleeding. Will monitor hemoglobin. Qualifiers: Anemia type: due to chronic kidney disease Chronic kidney disease stage: stage 2 (mild) Qualified Code(s): N18.2 - Chronic kidney disease, stage 2 ( mild); D63.1 - Anemia in chronic kidney disease (3) Chronic renal disease Onset Date: 07/18/17 Current Visit: Yes Status: Chronic Plan: Overall stable. Will monitor closely. Qualifiers: Chronic kidney disease stage: stage 2 (mild) Qualified Code(s): N18.2 - Chronic kidney disease, stage 2 (mild) (4) History of recent fall Onset Date: 07/18/17 Current Visit: Yes Status: Acute Plan: Will continue with physical therapy. Patient being evaluated for inpatient rehab. (5) Right hip pain Onset Date: 07/18/17 Current Visit: Yes Status: Acute Plan: Continue with physical therapy (6) Foot pain, left Onset Date: 07/18/17 Current Visit: Yes Status: Acute Plan: Continue with wound care (7) Edema Onset Date: 07/18/17 Current Visit: Yes Status: Acute Plan: Likely from CHF. Will continue with treatment. Will monitor closely. Qualifiers: Edema type: unspecified Qualified Code(s): R60.9 - Edema, unspecified (8) PVD (peripheral vascular disease) Onset Date: 07/18/17 Current Visit: Yes Status: Chronic Plan: Continue with medication. (9) Chronic anticoagulation Onset Date: 07/18/17 Current Visit: Yes Status: Chronic Plan: Continue with medication. (10) Chronic use of steroids Onset Date: 07/18/17 Current Visit: Yes Status: Chronic Plan: Will continue with steroids. (11) GERD (gastroesophageal reflux disease) Onset Date: 07/18/17 Current Visit: Yes Status: Chronic Plan: Will provide medication. Will try to obtain recent EGD and colonoscopy results. Qualifiers: Esophagitis presence: esophagitis presence not specified Qualified Code(s) : K21.9 - Gastro-esophageal reflux disease without esophagitis (12) Hypomagnesemia Onset Date: 07/18/17 Current Visit: Yes Status: Acute Plan: Will monitor and replace appropriately. Replacement protocol in place. (13) Atrial fibrillation with rapid ventricular response Onset Date: 04/28/16 Current Visit: No Status: Acute Plan: This likely was exacerbated by COPD and CHF exacerbation. Patient stable this time. Will continue with medication. No intervention needed at this time. (14) COPD (chronic obstructive pulmonary disease) Onset Date: 04/28/16 Current Visit: No Status: Acute Plan: Patient with mild COPD exacerbation. Continue with medication. Patient has seen pulmonology. No intervention needed at this time. Qualifiers: COPD type: COPD with acute exacerbation Qualified Code(s): J44.1 - Chronic obstructive pulmonary disease with (acute) exacerbation (15) Chronic pain disorder Onset Date: 11/05/16 Current Visit: No Status: Chronic Plan: Will provide medication as needed. (16) Chronic renal disease Onset Date: 11/05/16 Current Visit: No Status: Chronic Plan: Overall stable. Will monitor closely. Qualifiers: Chronic kidney disease stage: stage 2 (mild) Qualified Code(s): N18.2 - Chronic kidney disease, stage 2 (mild) (17) HTN (hypertension) Onset Date: 07/18/17 Current Visit: Yes Status: Chronic Plan: Will continue with medication. Qualifiers: Hypertension type: essential hypertension Qualified Code(s): I10 - Essential (primary) hypertension Discharge Plan: Other (Inpatient rehab) Plan to discharge in: 24 Hours Time Spent Managing Pts Care (In Minutes): 55
[2017-07-19] MEDS: PANTOPRAZOLE 40MG TABLET PO SCH (05:42)
[2017-07-19] MEDS: ARFORMOTEROL TARTRATE 15 MCG/2 ML VIAL.NEB NEB SCH ×2 (07:51→20:08)
[2017-07-19] MEDS: RIVAROXABAN 15 MG TABLET PO SCH ×2 (09:00→17:14)
[2017-07-19] MEDS: DILTIAZEM HCL 180 MG SR CAP PO SCH (10:13)
[2017-07-19] MEDS: FERROUS SULFATE 325 MG TAB PO SCH ×2 (10:14→14:21)
[2017-07-19] MEDS: PENTOXIFYLLINE ER 400 MG TAB PO SCH ×2 (10:14→21:45)
[2017-07-19] MEDS: TIOTROPIUM 5 SPRAYS/INHALER IH SCH (10:15)
[2017-07-19] MEDS: FUROSEMIDE 20 MG/ 2ML VIAL IV SCH (10:15)
[2017-07-19] MEDS: predniSONE 20 MG TAB PO SCH ×2 (10:15→21:45)
--- NOTE | 2017-07-19 14:08 | RAD REPORT ---
EXAM DESCRIPTION: RAD - Barium Swallow Modified - 07/19/2017 1:53 pm CLINICAL HISTORY: Abnormal swallowing. COMPARISON: None. TECHNIQUE: The patient was given liquid, semi-solid and solid forms of barium. Lateral view fluorosc opic imaging was performed in conjunction with speech pathology service. FINDINGS: Laryngeal penetration: cleared , thin via sequential sips with straw Moderate pharyngeal residue: vallecular with thin, nectar, and honey. Delayed swallow reflex. Reduced hyolaryngeal excursion.
[2017-07-19] MEDS ORDERED: HOME MED 1 EA UNK (Polyethylene Glycol 3350 [Miralax] 17 GM) PO PRN (16:39)
[2017-07-19] MEDS ORDERED: POLYETHYL GLY 3350 17 GM/DOSE PO PRN (17:01)
--- NOTE | 2017-07-19 18:13 | PN ---
Date of Progress Note: 07/19/2017 Subjective: The patient seen and examined, chart reviewed, and case discussed with RN and speech therapist. The patient did report some difficulty swallowing. States that he is not able to clear his saliva and his cough. Otherwise, no breathing problems reported. Review of Systems: Negative except as above. Medications: Reviewed. Objective: Vital Signs: Temperature 97, heart rate 92, blood pressure 150/77, respirations 18, and O2 93% on room air. General: Awake, alert, oriented x3, not in acute distress. Elderly male. CV: S1, S2. No murmurs. Irregularly irregular. Peripheral pulses present. Respiratory: Clear to auscultation bilaterally. No wheezing. No stridor. No use of accessory muscles Gastrointestinal: Abdomen is soft, nontender, nondistended. Positive bowel sounds. Extremities: No clubbing, cyanosis, edema. Neurologic: Nonfocal. Laboratory Data: Sodium 137, potassium 4.2, chloride 101, CO2 29, BUN 44, creatinine 1.37, glucose 130, calcium 9.2, and magnesium 2.1. WBC 10.8, H and H 8.6, 27.2, and platelets 231. Blood cultures, no growth to date. Occult blood positive. Assessment: An 82-year-old male with; 1. Presyncopal episode, likely multifactorial, improved. Continue PT. The patient going for inpatient rehab. 2. Anemia. Recently evaluated by GI for chronic melena. H and H are stable. Previous EGD and colonoscopy per the patient did not show any source of bleed. Monitor H and H, likely anemia of chronic disease, stage 2. 3. Chronic kidney disease stage 2. Monitor creatinine. Stable. 4. History of recent falls. Continue PT. Inpatient rehab for fall. 5. Right hip pain, improved. 6. Left foot pain. Continue wound care. Improved. 7. Lower extremity edema, likely secondary to congestive heart failure. Continue diuresis. 8. Peripheral vascular disease. Continue with home medications. 9. Status post chronic anticoagulation. 10. Atrial fibrillation with rapid ventricular response secondary to acute chronic obstructive pulmonary disease and congestive heart failure exacerbation , now with controlled ventricular rate. 11. Acute chronic obstructive pulmonary disease exacerbation. Appreciate Pulmonology input, improved with breathing treatments. The patient has chronic respiratory failure, on oxygen. 12. Chronic respiratory failure secondary to chronic obstructive pulmonary disease on 2 L of oxygen 24/7. 13. Chronic pain disorder. 14. Essential hypertension, stable. 15. Gastroesophageal reflux disease without esophagitis. Continue PPI. 16. Chronic use of steroids. 17. Hypomagnesemia, replace and monitor. 18. Possible dysphagia. We will get Speech Therapy evaluation recommending a modified barium swallow study. We will follow. 19. Parkinson's disease: Continue home meds. Sees Dr. Ferguson as outpt. Plan: Discharge to inpatient rehab was accepted. /TG Voice ID: [id number] Report ID: [id number] MTDD
[2017-07-19] MEDS ORDERED: CARBIDOPA/LEVODOPA 25/100 TAB PO SCH (21:00)
[2017-07-19] MEDS: TOPIRAMATE 25 MG TAB PO SCH (21:45)
[2017-07-20 04:51] LABS: Absolute Lymphocytes (CBC) 0.8 K/uL (0.7-4.9); Absolute Monocytes 0.7 K/uL (0.1-1.3); Hematocrit 30.4 % (39.6-49.0); Lymphocytes % 7.3 % (15.3-44.8); MCH 22.1 pg (27.0-35.0); MCV 71.9 fL (80-100); Monocytes % 6.5 % (3.3-12.3); RBC Red Blood Cell Count 4.23 M/uL (4.33-5.43)
[2017-07-20 05:02] LABS: Potassium 5.4 mEq/L (3.6-5.0)
[2017-07-20 05:26] LABS: Platelet Estimate ADEQ; Urine White Blood Cell Casts OK
[2017-07-20 05:27] LABS: Blood Morphology Comment NOTED (NOT SEEN); Ovalocytes 1+
[2017-07-20] MEDS: PANTOPRAZOLE 40MG TABLET PO SCH (06:55)
[2017-07-20] MEDS: ARFORMOTEROL TARTRATE 15 MCG/2 ML VIAL.NEB NEB SCH ×2 (08:11→19:58)
[2017-07-20] MEDS: BUDESONIDE 0.25 MG/2 ML NEB NEB SCH (08:12)
[2017-07-20] MEDS: HOME MED 1 EA UNK (Budesonide/Formoterol Fumarate [Symbicort 80-4.5 Mcg Inhaler] 1 PUFF) IH SCH (09:00)
[2017-07-20] MEDS: FERROUS SULFATE 325 MG TAB PO SCH ×3 (10:11→17:42)
[2017-07-20] MEDS: TOPIRAMATE 25 MG TAB PO SCH ×2 (10:12→21:04)
[2017-07-20] MEDS: FUROSEMIDE 20 MG/ 2ML VIAL IV SCH (10:12)
[2017-07-20] MEDS: DILTIAZEM HCL 180 MG SR CAP PO SCH (10:13)
[2017-07-20] MEDS: predniSONE 20 MG TAB PO SCH ×2 (10:13→21:04)
[2017-07-20] MEDS: LOSARTAN POTASSIUM 50 MG TABLET PO SCH (10:14)
[2017-07-20] MEDS: PENTOXIFYLLINE ER 400 MG TAB PO SCH ×2 (10:17→21:03)
[2017-07-20] MEDS: TIOTROPIUM 5 SPRAYS/INHALER IH SCH (11:11)
[2017-07-20] MEDS ORDERED: SOD POLYSTYREN SUL 15 GM/60 ML UCUP PO ONE (11:37)
--- NOTE | 2017-07-20 14:29 | PN ---
Date of Progress Note: 07/20/2017 Subjective: The patient is seen and examined. Chart reviewed and case discussed with RN. The patie nt awaiting transfer to inpatient rehab once approved. Review of Systems: Negative except as above. Medications: Reviewed. Physical Examination: Vital Signs: Temperature 97.7, heart rate 88, blood pressure 143/87, respirations 18, O2 96% on room air. General: Awake, alert, oriented x3. No acute distress. Elderly male, frail. BMI 21. CV: S1, S2 irregularly irregular. Peripheral pulses present. Respiratory: Moving air well bilaterally. No wheezing. Gastrointestinal: Abdomen is soft, nontender, nondistended. Positive bowel sounds. Extremities: No clubbing, cyanosis, or edema. Neurologic: Nonfocal. The patient does have resting pill-rolling tremor. Laboratory Data: Sodium 138, potassium 5.4, chloride 100, CO2 31, BUN 48, creatinine 1.59, glucose 1 32, calcium 9.6. WBC 10.4, H and H 7.3 and 30.4, platelets 258, neutrophils 86.2%. INR 1.31. Blood cultures, no growth to date. Assessment And Plan: An 82-year-old male with: 1.Presyncopal episode, likely multifactorial, improved. No further episodes. We will continue with PT. Awaiting inpatient rehab placement. 2.Anemia, likely anemia of chronic disease. Stool occult blood, however, was positive. H and H are stable. We will continue to monitor. The patient has had recent evaluation by GI for chronic melen a. EGD and colonoscopies per the patient did not show any source of bleeding. 3.Chronic kidney disease, stage 2, stable. We will continue to monitor creatinine. 4.History of recent falls. Continue PT. The patient at risk due to his Parkinson, has a shuffling gait. 5.Right hip pain, resolved. 6.Left foot pain. We will continue wound care. Improving. 7.Left lower extremity edema secondary to congestive heart failure. We will continue diuresis. 8.Peripheral vascular disease, stable. 9.Status post chronic anticoagulation. 10.Atrial fibrillation with rapid ventricular response, now improved with controlled ventricular rat e. The patient came in with acute chronic obstructive pulmonary disease and congestive heart failure causing rapid ventricular rate. 11.Acute chronic obstructive pulmonary disease exacerbation, improving with breathing treatments. C ase discussed with Dr. Starks. The patient does have chronic respiratory failure, on oxygen. 12.Chronic respiratory failure secondary to chronic obstructive pulmonary disease, on 2 L of oxygen 27/09. 13.Chronic pain disorder. 14.Essential hypertension, stable. 15.Parkinson disease. We will continue home medications. The patient not taking Sinemet due to emi e effects. 16.Gastroesophageal reflux disease without esophagitis. Continue PPI. 17.Chronic use of steroids. 18.Hypomagnesemia, replace and monitor. 19.Hyperkalemia. We will provide Kayexalate and monitor potassium level. 20.Dysphagia. Modified barium swallow study completed. Appreciate Speech Therapy input. We will c jessicainue on diet recommendations per Speech. Plan: Discharge to inpatient rehab once accepted. Awaiting [id number] today. KARINA Voice ID: [id number] Report ID: [id number]
[2017-07-20] MEDS: RIVAROXABAN 15 MG TABLET PO SCH (17:42)
[2017-07-21 04:16] LABS: Absolute Lymphocytes (CBC) 0.8 K/uL (0.7-4.9); Absolute Monocytes 0.4 K/uL (0.1-1.3); Absolute Neutrophil 9.4 K/uL (1.8-8.0); Basophils % 0.1 % (0-1.3); Hematocrit 29.9 % (39.6-49.0); Lymphocytes % 7.1 % (15.3-44.8); MCH 22.3 pg (27.0-35.0); MCV 70.8 fL (80-100); MPV 8.7 fL (7.6-11.3); Monocytes % 3.9 % (3.3-12.3); RBC Red Blood Cell Count 4.23 M/uL (4.33-5.43)
[2017-07-21 04:35] LABS: Magnesium 1.9 mg/dL (1.8-2.5)
[2017-07-21] MEDS: PANTOPRAZOLE 40MG TABLET PO SCH (06:30)
[2017-07-21] MEDS: FERROUS SULFATE 325 MG TAB PO SCH ×2 (08:00→12:45)
[2017-07-21] MEDS: BUDESONIDE 0.25 MG/2 ML NEB NEB SCH (08:12)
[2017-07-21] MEDS: ARFORMOTEROL TARTRATE 15 MCG/2 ML VIAL.NEB NEB SCH (08:12)
[2017-07-21 08:59] VITALS: O2SAT 98
[2017-07-21] MEDS: HOME MED 1 EA UNK (Budesonide/Formoterol Fumarate [Symbicort 80-4.5 Mcg Inhaler] 1 PUFF) IH SCH (09:00)
--- NOTE | 2017-07-21 12:18 | PN ---
Date of Progress Note: 07/21/2017 Subjective: The patient seen and examined. Chart reviewed and case discussed with RN. The patient's unfortunately denied inpatient rehab by insurance. The patient is willing to go to SNF. He understands that he has a high risk of falls and has no family nearby. His daughter recently diagnosed with cancer and is in [facility] for treatment. The patient is home alone, complaining of dizziness today. Review of Systems: Negative except as above. Medications: Reviewed. Physical Examination: Vital Signs: Temperature 97.6, heart rate 73, blood pressure 128/69, respirations 16, O2 91% on room air. General: Awake, alert, oriented x3, elderly male, no acute distress. CV: S1, S2, irregularly irregular. Peripheral pulses present. Respiratory: Moving air well bilaterally. No wheezing. No stridor. Gastrointestinal: Abdomen is soft, nontender, nondistended. Positive bowel sounds. Extremities: No clubbing, cyanosis, edema. Neurologic: Nonfocal. The patient has resting pill-rolling tremor. Laboratory Data: Sodium 138, potassium 4, chloride 101, CO2 29, BUN 48, creatinine 1.43, glucose 134, calcium 9.4, magnesium 1.9. WBC 10.6, H and H 9.1 and 29.9, platelets 246, neutrophils 88.9%. Blood cultures, no growth to date. Assessment And Plan: An 82-year-old male with: 1. Presyncopal episode, likely multifactorial. No further episodes. Continue PT. The patient denied inpatient rehab. We will refer to SNF. 2. Anemia of chronic disease. Stool occult blood was positive. The patient apparently had mass found on colonoscopy. Has been under the care of GI. The patient states he needs to go to [facility] for colorectal specialist for further evaluation and treatment of the mass. 3. Chronic kidney disease, stage 2, stable. Continue to monitor creatinine. 4. History of recent falls. We will continue physical therapy. 5. Right hip pain, resolved. 6. Left foot pain, improved. 7. Left lower extremity edema secondary to congestive heart failure. We will continue current treatment. The patient is on losartan and metoprolol. Last known EF is 50% to 51%, diastolic dysfunction. 8. Peripheral vascular disease, stable. 9. Atrial fibrillation with rapid ventricular response, now controlled ventricular rate on anticoagulation. 10. Acute chronic obstructive pulmonary disease exacerbation, resolved, weaned off home oxygen. 11. Chronic respiratory failure. The patient uses 2 L of oxygen at home. 12. Chronic pain disorder, stable. 13. Essential hypertension, stable. 14. Parkinson disease. We will continue home medications. Currently on Topamax only. 15. Gastroesophageal reflux disease without esophagitis. We will continue PPI. 16. Hypomagnesemia, replaced. Continue to monitor. 17. Hypokalemia, corrected. 18. Dysphagia. Continue speech therapy. 19. Chronic use of steroids. Plan: Referral to SNF. Addendum: patient now refusing to go to long-term facility. He understands the risks involved including fall hip fracture brain bleed and even . Spoke to daughter Calista and granddaughter Tierra who both understand the risks involved patient is awake alert oriented x3 and understands the risks wants to go home with home health and PT. mud jack nozzle worker Kiersten also spoke with patient KARINA Voice ID: [id number] Report ID: [id number] LORENA
[2017-07-21] MEDS: DILTIAZEM HCL 180 MG SR CAP PO SCH (12:44)
[2017-07-21] MEDS: TIOTROPIUM 5 SPRAYS/INHALER IH SCH (12:44)
[2017-07-21] MEDS: FUROSEMIDE 20 MG/ 2ML VIAL IV SCH (12:45)
[2017-07-21] MEDS: LOSARTAN POTASSIUM 50 MG TABLET PO SCH (12:45)
[2017-07-21] MEDS: TOPIRAMATE 25 MG TAB PO SCH (12:45)
[2017-07-21] MEDS: PENTOXIFYLLINE ER 400 MG TAB PO SCH (12:45)
[2017-07-21] MEDS: predniSONE 20 MG TAB PO SCH (12:45)
[2017-07-21 15:42] VITALS: BP 126/68; TEMP 97.4
--- NOTE | 2017-07-21 17:00 | DS ---
Date of Discharge: 07/21/2017 Consultants: Dr. Starks with Pulmonology. Dr. Baez, Cardiology. Admitting Diagnoses: 1.Presyncopal episode. 2.Anemia. 3.Chronic kidney disease. 4.History of recent fall. 5.Right hip pain. 6.Left foot pain. 7.Edema. 8.Peripheral vascular disease. 9.Chronic anticoagulation. 10.Chronic use of steroids. 11.Gastroesophageal reflux disease. 12.Hypomagnesemia. 13.Atrial fibrillation with rapid ventricular response. 14.Chronic obstructive pulmonary disease. 15.Chronic pain disorder. 16.Chronic renal disease. 17.Hypertension. Discharge Diagnoses: 1.Presyncopal episode, multifactorial. 2.Anemia of chronic disease. 3.Colon mass. The patient being set up as an outpatient for colorectal surgery. Has been under the care of GI specialist with recent colonoscopy and EGD. 4.Chronic kidney disease, stage 2. 5.History of recent fall. 6.Right hip pain, resolved. 7.Left foot pain, improved. 8.Left lower extremity edema secondary to congestive heart failure, diastolic dysfunction. 9.Peripheral vascular disease. 10.Atrial fibrillation with rapid ventricular response, controlled ventricular rate on anticoagulati on. 11.Chronic obstructive pulmonary disease with acute exacerbation, improved. 12.Chronic respiratory failure, on 2 L of oxygen 27/09. 13.Chronic pain disorder, stable. 14.Essential hypertension, stable. 15.Parkinson disease. The patient is not taking Sinemet. On Topamax at this time. 16.Gastroesophageal reflux disease without esophagitis. 17.Hypomagnesemia, replaced. 18.Hyperkalemia, corrected. 19.Dysphagia. Continue speech therapy. 20.Chronic use of steroids. Hospital Course: The patient is an 82-year-old male, who was admitted to the hospital for shortness of breath and presyncopal episode. The patient was found to be in AFib with RVR. The patient was al so in acute on chronic heart failure, diastolic dysfunction. The patient was seen by mica plate layer, Dr. Starks. His medications were adjusted. The patient's condition improved. His chest x-ray nader wed improvement. His atrial fibrillation was now in controlled ventricular rate. The patient did bryson ve echocardiogram done, which showed an EF of 51% to 55%, decreased left ventricular compliance. The patient was seen by Dr. Baez with Cardiology. The patient otherwise did well. He was also seen by Physical Therapy and did need some assistance. He was referred to inpatient rehab, however, was d enied. Decision was appealed, however, was still denied. The patient then was referred to SNF; [facility], the patient did not want to go to group home facility. He opted for home health with PT. He understands any other risk of fall and may end up having hip fracture or brain bleed as he is on b lood thinners. Also, the patient's daughter was contacted, who is also currently suffered from cance r and is under treatment and states that her father is "hard headed and do not listen." Also spoke w ith the patient's granddaughter, who has been mainly coming to the hospital to check on the grandfath er. Both Calista and Denise understand that the patient has risk for fall and possible bleed and hip fracture and may be even due to bleed or other complications. They understand. He does have a neighbor that looks out for him and the granddaughter is close by. The patient understands these r isks. He is awake, alert, oriented x3, wishes to go home with home health and PT, and refuses [facility] nursing facility. The patient was then discharged home in a stable condition. Activity: Fall precautions as per rehab. Followup: Follow up with primary care physician in 2-3 days. Follow up with mica plate layer, Dr. Jaden prabhakar in 2 weeks. Follow up with Dr. Baez, Cardiology in 2 weeks. Return to ER for worsening cond ition. Medication dose may need to be adjusted by Cardiology. Initially, his beta-mirian has been held due to presyncopal episode. Medications: As per medication reconciliation list. Total time spent discharging the patient was 32 minutes. Physical Examination: For physical exam findings, please see the progress note dictated on the day of discharge. /TG Voice ID: [id number] Report ID: [id number]
== END 2017-07-21 16:04 | disposition home health service (06) ==
LOC: ER 09:22 → INTOOBSV 10:12 → ERHOLD 10:12 → 4TH 11:49
PROVIDERS: ADMIT Family Medicine; ATTEND Family Medicine
DX: J44.1 Chronic obstructive pulmonary disease with (acute) exacerbation (principal); I13.0 Hypertensive heart and chronic kidney disease with heart failure and stage 1 through stage 4 chronic kidney disease, or unspecified chronic kidney disease; I50.33 Acute on chronic diastolic (congestive) heart failure; J96.10 Chronic respiratory failure, unspecified whether with hypoxia or hypercapnia; D63.1 Anemia in chronic kidney disease; R55 Syncope and collapse; I48.91 Unspecified atrial fibrillation; G89.29 Other chronic pain; E83.42 Hypomagnesemia; I73.9 Peripheral vascular disease, unspecified; G20 Parkinson's disease; D50.9 Iron deficiency anemia, unspecified; M25.551 Pain in right hip; M79.672 Pain in left foot; R13.10 Dysphagia, unspecified; K21.9 Gastro-esophageal reflux disease without esophagitis; E87.5 Hyperkalemia; K63.89 Other specified diseases of intestine; Z79.01 Long term (current) use of anticoagulants; Z79.52 Long term (current) use of systemic steroids
CPT/HCPCS: 36415 ×4; 70450; 71045; 72170; 73502; 73630; 74230; 80048 ×6; 80061; 80076; 81003; 82274; 82550 ×3; 82553 ×3; 82607; 82728; 82805; 83540; 83690; 83735 ×5; 83880; 84443; 84466; 84484 ×3; 85025 ×6; 85610; 85730; 86850; 86900; 86901; 87040 ×2; 92526 ×2; 92610; 93005; 93306; 93880; 96374; 97112; 97116 ×4; 97163; 97530 ×3; 99285; G0378 ×2; J1940 ×6; J2930; J3475; J7030; J7605 ×12; J7512

== ENCOUNTER 2017-09-29 07:20 | Day surgery (SDC) | payer MEDICARE ==
--- OUTSIDE RECORDS SUMMARY | 2017-09-29 07:38 | XMS REPORT ---
:1935 Author Organization eClinicalWorks Care Team Providers Name Role Phone Contreras Vela Provider Role Unavailable Allergies, Adverse Reactions, Alerts Substance Reaction Event Type Lisinopril Info Not Available Drug Allergy Problems Problem Type Condition Code Onset Dates Condition Status Assessment Nail deformity L60.8 Active Assessment Left foot pain M79.672 Active Assessment Parkinson''s disease G20 Active Assessment Tremor R25.1 Active Assessment Mixed hyperlipidemia E78.2 Active Assessment Hypertension I10 Active Assessment Atrial fibrillation I48.91 Active Problem Erectile dysfunction N52.9 Active Assessment Health nursing home, active care Z78.9 Active coordination Problem Mixed hyperlipidemia E78.2 Active Assessment Need for home health care Z74.2 Active Problem Complaint of debility and malaise R53.81 Active Problem Chronic obstructive bronchitis J44.9 Active without exacerbation Problem Osteoarthritis, 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 Active Problem Colonic mass K63.9 Active Problem Anemia, unspecified type D64.9 Active Assessment Chronic obstructive bronchitis J44.9 Active without exacerbation Assessment History of fall within past 90 days Z91.81 Active Problem Lower GI bleed K92.2 Active Assessment Anemia, unspecified type D64.9 Active Problem Parkinson''s disease G20 Active Problem Seasonal allergic rhinitis, J30.2 Active unspecified trigger Problem History of fall within past 90 days Z91.81 Active Problem Chronic kidney disease, stage 3 N18.3 Active Assessment Lower GI bleed K92.2 Active Problem Chronic pain syndrome G89.4 Active Assessment Complaint of debility and malaise R53.81 Active Assessment Colonic mass K63.9 Active Problem Hypertension I10 Active Problem Hydrocele N43.3 Active Problem Tremor R25.1 Active Problem Atrial fibrillation I48.91 Active Medications Medication Code Code Instructions Start End Status Dosage System Date Date Matt S [facility] 66642839897 8.6-50 MG Active 1 tablet Orally Once a in the day evening as needed Aspirin [facility] 04774646156 325 MG Orally Active 1 tablet Once a day Cardizem LA [facility] 95712671180 180 MG Orally Active 1 tablet Once a day Losartan [facility] 47641518971 50MG Orally Active TAKE ONE Potassium Once a day TABLET BY MOUTH ONCE DAILY Symbicort [facility] 62461615401 160-4.5 MCG/ACT Active 2 puffs Inhalation Twice a day Xarelto [facility] 58298355793 15 MG Orally Active 1 tablet Once a day with food Perforomist [facility] 06041610990 20 MCG/2ML Active 2 ml Inhalation Twice a day Topiramate [facility] 87086126874 25 MG Orally Active 1 tablet Twice a day Pentoxifylline ER [facility] 65893333830 400 MG Orally Active 1 tablet Twice a day with meals ProAir HFA [facility] 59011662451 108 (90 Base) Active 2 puffs as MCG/ACT needed Inhalation every 6 hrs Metoprolol [facility] 01798869499 50 MG Orally Active 1 tablet Tartrate Twice a day with food Results No Known Results Summary Purpose eClinicalWorks Submission
--- OUTSIDE RECORDS SUMMARY | 2017-09-29 07:38 | XMS REPORT ---
[...] Medications Results No Known Results Summary Purpose [employer] Submission
--- OUTSIDE RECORDS SUMMARY | 2017-09-29 07:38 | XMS REPORT ---
[...] End Status Dosage System Date Date Metoprolol [facility] 25289613054 50 MG Orally Active 1 tablet Tartrate Twice a day with food Symbicort [facility] 92092356317 160-4.5 MCG/ACT Active 2 puffs Inhalation Twice a day Aspirin [facility] 31923884363 325 MG Orally Active 1 tablet Once a day Pentoxifylline ER [facility] 59255524706 400 MG Orally Active 1 tablet Twice a day with meals Topiramate [facility] 66933507257 25 MG Orally Active 1 tablet Twice a day ProAir HFA [facility] 95432186344 108 (90 Base) Active 2 puffs as MCG/ACT needed Inhalation every 6 hrs Cardizem LA [facility] 18826398649 180 MG Orally Active 1 tablet Once a day Losartan [facility] 55829418545 50MG Orally Active TAKE ONE Potassium Once a day TABLET BY MOUTH ONCE DAILY Senokot S [facility] 47561997436 8.6-50 MG Active 1 tablet Orally Once a in the day evening as needed Perforomist [facility] 94305933253 20 MCG/2ML Active 2 ml Inhalation Twice a day Xarelto [facility] 09886693487 15 MG Orally Active 1 tablet Once a day with food Results No Known Results Summary Purpose eClinicalWorks Submission
--- OUTSIDE RECORDS SUMMARY | 2017-09-29 07:38 | XMS REPORT ---
[...] Active Problem Anemia, unspecified type D64.9 Active Problem Lower GI bleed K92.2 Active Problem Parkinson''s disease G20 Active Problem Seasonal allergic rhinitis, J30.2 Active unspecified trigger Problem History of fall within past 90 days Z91.81 Active Problem Chronic kidney disease, stage 3 N18.3 Active Problem Chronic pain syndrome G89.4 Active Problem Hypertension I10 Active Problem Hydrocele N43.3 Active Problem Tremor R25.1 Active Problem Erectile dysfunction N52.9 Active Problem Atrial fibrillation I48.91 Active Problem Mixed hyperlipidemia E78.2 Active Medications No Known Medications Results No Known Results Summary Purpose eClinicalWorks Submission
--- OUTSIDE RECORDS SUMMARY | 2017-09-29 07:38 | XMS REPORT ---
[...] Medications Results No Known Results Summary Purpose [employer] Submission
--- OUTSIDE RECORDS SUMMARY | 2017-09-29 07:38 | XMS REPORT ---
:1935 Author Organization eClinicalWorks Care Team Providers Name Role Phone Dane Contreras Provider Role Unavailable Allergies No Known Allergies [...] Medications Results No Known Results Summary Purpose [employer] Submission
--- OUTSIDE RECORDS SUMMARY | 2017-09-29 07:38 | XMS REPORT ---
:1935 Author Organization eClinicalWorks Care Team Providers Name Role Phone Contreras Vela Provider Role Unavailable Allergies No Known Allergies Problems Problem Type Condition Code Onset Dates Condition Status Assessment Parkinson''s disease G20 Active Assessment Tremor R25.1 Active Assessment Mixed hyperlipidemia E78.2 Active Problem Erectile dysfunction N52.9 Active Assessment Anemia, unspecified type D64.9 Active Problem Mixed hyperlipidemia E78.2 Active Assessment History of fall within past 90 days Z91.81 Active Problem Complaint of debility and malaise R53.81 Active Problem Chronic obstructive bronchitis J44.9 Active without exacerbation Problem Osteoarthritis, 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 Active Problem Colonic mass K63.9 Active Problem Anemia, unspecified type D64.9 Active Assessment Atrial fibrillation I48.91 Active Assessment Lower GI bleed K92.2 Active Problem Lower GI bleed K92.2 Active Assessment Hypertension I10 Active Problem Parkinson''s disease G20 Active Problem Seasonal allergic rhinitis, J30.2 Active unspecified trigger Problem History of fall within past 90 days Z91.81 Active Problem Chronic kidney disease, stage 3 N18.3 Active Assessment Colonic mass K63.9 Active Problem Chronic pain syndrome G89.4 Active Assessment Complaint of debility and malaise R53.81 Active Assessment Chronic obstructive bronchitis J44.9 Active without exacerbation Problem Hypertension I10 Active Problem Hydrocele N43.3 Active Problem Tremor R25.1 Active Problem Atrial fibrillation I48.91 Active Medications Medication Code Code Instructions Start End Status Dosage System Date Date ProAir HFA [facility] 42227884222 108 (90 Base) Active 2 puffs as MCG/ACT needed Inhalation every 6 hrs Losartan [place] 41916449028 50MG Orally Active TAKE ONE Potassium Once a day TABLET BY MOUTH ONCE DAILY Xarelto [facility] 71161062729 15 MG Orally Active 1 tablet Once a day with food Pulmicort [facility] 68723551452 0.25 MG/2ML Active 2 ml Inhalation Once a day Senokot S [facility] 51240310390 8.6-50 MG Active 1 tablet Orally Once a in the day evening as needed Cardizem LA [facility] 56942619884 180 MG Orally Active 1 tablet Once a day Sinemet [facility] 67988407412 25-100 MG Active 1 tablet Orally Three times a day Protonix [facility] 83721012652 40 MG Orally Active 1 tablet Once a day Spiriva [facility] 82402807465 18 MCG Active 1 capsule HandiHaler Inhalation Once a day Ferrous Sulfate [facility] 38933775366 325 (65 Fe) MG Active 1 tablet Orally TID Metoprolol [facility] 68090685407 50 MG Orally Active 1 tablet Tartrate Twice a day with food Aspirin [facility] 88002395524 325 MG Orally Active 1 tablet Once a day Lasix [facility] 80374871383 20 MG Orally Active 1 tablet Once a day Topiramate [facility] 93978312694 25 MG Orally Active 1 tablet Twice a day Pentoxifylline ER [facility] 96655566253 400 MG Orally Active 1 tablet Twice a day with meals Symbicort [facility] 67209324849 80-4.5 MCG/ACT Active 2 puffs Inhalation Twice a day Results No Known Results Summary Purpose eClinicalWorks Submission
--- OUTSIDE RECORDS SUMMARY | 2017-09-29 07:38 | XMS REPORT ---
:1935 Author Organization eClinicalWorks Care Team Providers Name Role Phone Crow Velah Provider Role Unavailable Allergies, Adverse Reactions, Alerts [...] Problem Anemia, unspecified type D64.9 Active Assessment Complaint of debility and malaise R53.81 Active Assessment Atrial fibrillation I48.91 Active Problem Lower GI bleed K92.2 Active Assessment Hypertension I10 Active Problem Parkinson''s disease G20 Active Problem Seasonal allergic rhinitis, J30.2 Active unspecified trigger Problem History of fall within past 90 days Z91.81 Active Problem Chronic kidney disease, stage 3 N18.3 Active Assessment Lower GI bleed K92.2 Active Problem Chronic pain syndrome G89.4 Active Assessment Chronic obstructive bronchitis J44.9 Active without exacerbation Assessment Colonic mass K63.9 Active Problem Hypertension I10 Active Problem Hydrocele N43.3 Active Problem Tremor R25.1 Active Problem Atrial fibrillation I48.91 Active Medications Medication Code Code Instructions Start End Status Dosage System Date Date Senokot S [facility] 59429200241 8.6-50 MG Active 1 tablet Orally Once a in the day evening as needed Symbicort [facility] 39692897099 80-4.5 MCG/ACT Active 2 puffs Inhalation Twice a day Sinemet [facility] 97948632832 25-100 MG Active 1 tablet Orally Three times a day Ferrous Sulfate [facility] 44330208697 325 (65 Fe) MG Active 1 tablet Orally TID Protonix [facility] 34111088627 40 MG Orally Active 1 tablet Once a day Cardizem LA [facility] 60593186904 180 MG Orally Active 1 tablet Once a day Xarelto [facility] 09269370647 15 MG Orally Active 1 tablet Once a day with food Metoprolol [facility] 53510655905 50 MG Orally Active 1 tablet Tartrate Twice a day with food Topiramate [facility] 21102221694 25 MG Orally Active 1 tablet Twice a day Lasix [facility] 14289671821 20 MG Orally Active 1 tablet Once a day Pentoxifylline ER [facility] 79491111792 400 MG Orally Active 1 tablet Twice a day with meals Pulmicort [facility] 49076931088 0.25 MG/2ML Active 2 ml Inhalation Once a day ProAir HFA [facility] 31572988135 108 (90 Base) Active 2 puffs as MCG/ACT needed Inhalation every 6 hrs Aspirin [facility] 82088890810 325 MG Orally Active 1 tablet Once a day Losartan [facility] 26205731935 50MG Orally Active TAKE ONE Potassium Once a day TABLET BY MOUTH ONCE DAILY Spiriva [facility] 91596556019 18 MCG Active 1 capsule HandiHaler Inhalation Once a day Results No Known Results Summary Purpose eClinicalWorks Submission
--- OUTSIDE RECORDS SUMMARY | 2017-09-29 07:38 | XMS REPORT ---
:1935 Author Organization eClinicalWorks Care Team Providers Name Role Phone Talon Abarca Provider Role Unavailable Allergies No Known Allergies [...] Medications Results No Known Results Summary Purpose [employer] Submission
--- OUTSIDE RECORDS SUMMARY | 2017-09-29 07:38 | XMS REPORT ---
:1935 Author Organization eClinicalWorks Care Team Providers Name Role Phone TevinTalon Provider Role Unavailable Allergies, Adverse Reactions, Alerts [...] Problem Chronic pain syndrome G89.4 Active Assessment Polyp of colon, unspecified part of K63.5 Active colon, unspecified type Assessment Tubular adenoma of colon D12.6 Active Problem Hypertension I10 Active Problem Hydrocele N43.3 Active Problem Tremor R25.1 Active Problem Erectile dysfunction N52.9 Active Problem Atrial fibrillation I48.91 Active Problem Mixed hyperlipidemia E78.2 Active Medications Medication Code Code Instructions Start End Status Dosage System Date Date ProAir HFA [facility] [id number] 108 (90 Base) Active 2 puffs as MCG/ACT needed Inhalation every 6 hrs Lasix [facility] 56194744596 20 MG Orally Active 1 tablet Once a day Cardizem LA [facility] 55609685449 180 MG Orally Active 1 tablet Once a day Spiriva [facility] 57491620344 18 MCG Active 1 capsule HandiHaler Inhalation Once a day Pentoxifylline ER [facility] 20695293806 400 MG Orally Active 1 tablet Twice a day with meals Protonix [facility] 90988873940 40 MG Orally Active 1 tablet Once a day Topiramate [facility] 93091710847 25 MG Orally Active 1 tablet Twice a day Losartan [facility] 39862919258 50MG Orally Active TAKE ONE Potassium Once a day TABLET BY MOUTH ONCE DAILY Xarelto [facility] 80499128789 15 MG Orally Active 1 tablet Once a day with food Metoprolol [facility] 52081531788 50 MG Orally Active 1 tablet Tartrate Twice a day with food Senokot S [facility] 74780997200 8.6-50 MG Active 1 tablet Orally Once a in the day evening as needed Pulmicort [facility] 58847764419 0.25 MG/2ML Active 2 ml Inhalation Once a day Aspirin [facility] 35650287582 325 MG Orally Active 1 tablet Once a day Sinemet [facility] 76824001717 25-100 MG Active 1 tablet Orally Three times a day Symbicort [facility] 11858535950 80-4.5 MCG/ACT Active 2 puffs Inhalation Twice a day Ferrous Sulfate [facility] 77654137634 325 (65 Fe) MG Active 1 tablet Orally TID Results No Known Results Summary Purpose eClinicalWorks Submission
[2017-09-29] MEDS ORDERED: NA CHLORIDE 0.9% 500 ML ONE (07:52)
[2017-09-29] MEDS ORDERED: LIDOCAINE 1% MPF 5 ML VIAL ONE (08:24)
[2017-09-29] MEDS ORDERED: PROPOFOL 200 MG/20 ML VIAL IV ONE (08:24)
--- NOTE | 2017-09-29 09:19 | ENDO RPT ---
[address], [address] COLONOSCOPY PROCEDURE REPORT EXAM DATE: 09/29/2017 PATIENT NAME: Rohan Jaquez MR #: [id number] BIRTHDATE: 1935 ATTENDING: Talon Abarca DR STATUS: outpatient ENTERPRISE APPLICATION DEVELOPER: Tyrel Mata and Bernarda Ji RN INDICATIONS: The patient is a 82 yr old Male here for a colonoscopy due to personal history of colon polyps PROCEDURE PERFORMED: Colonoscopy with biopsy MEDICATIONS: Per Anesthesia. ESTIMATED BLOOD LOSS: None CONSENT: The patient understands the risks and benefits of the procedure and understands that these risks include, but are not limited to: sedation, allergic reaction, infection, perforation and/or bleeding. Alternative means of evaluation and treatment include, among others: physical exam, x-rays, and/or surgical intervention. The patient elects to proceed with this endoscopic procedure. DESCRIPTION OF PROCEDURE: During intra-op preparation period all mechanical medical equipment was checked for proper function. Hand hygiene and appropriate measures for infection prevention was taken. Procedure, possible complications, alternatives including, but not limited to possibility of bleeding, perforation, tear, infection, sepsis, need for surgery, need for blood transfusion, were explained to the patient. After the risks, benefits and alternatives of the procedure were thoroughly explained, Informed consent was verified, confirmed and timeout was successfully executed by the treatment team. The patient was placed in the left lateral position. A digital rectal exam was performed and revealed internal hemorrhoids. After appropriate level of anesthesia, the scope was passed. The EC-[id number] ([id number]) and Pentax [id number] ([id number]) endoscope was introduced through the anus and advanced to the cecum, which was identified by the ileocecal valve. The quality of the prep was poor. The instrument was then slowly withdrawn as the colon was fully examined. Scope withdrawal time was 10 minutes. COLON FINDINGS: A 2 medium sized large smooth polyps with friable surfaces were found in the ascending colon, one was flat, one polypoid. A biopsy was performed using a hot snare. Sample was obtained and sent to histology. Using Saline injection, I was unable to completely resect the large flat polyp of the Asending colon, the area was previously tatood and remained well marked. The scope was then completely withdrawn from the patient and the procedure terminated. ADVERSE EVENTS: There were no complications. IMPRESSIONS: Few medium sized large flat polyps were found in the ascending colon; biopsy was performed using a hot snare RECOMMENDATIONS: 1. follow-up: office 2 week(s) 2. surgery - Patient will need surgical hemicolectomy for difinitive removal and pathologic examination of the flat polyp of the Asending Colon. RECALL: Talon Abarca DR eSigned: Talon Abarca DR 09/29/2017 9:18 AM cc: CPT CODES: ICD9 CODES:
[2017-09-29 09:45] VITALS: TEMP 97.7
[2017-09-29 10:24] VITALS: BP 125/73; O2SAT 97
== END 2017-09-29 10:15 | disposition home or self-care (01) ==
LOC: OR 07:20
PROVIDERS: ATTEND Surgery
PROC: 0DBK8ZX Excision of Ascending Colon, Via Natural or Artificial Opening Endoscopic, Diagnostic (ICD-10-PCS; principal; 2017-09-29 08:30)
DX: D12.6 Benign neoplasm of colon, unspecified (principal); J44.9 Chronic obstructive pulmonary disease, unspecified; I48.91 Unspecified atrial fibrillation; I12.9 Hypertensive chronic kidney disease with stage 1 through stage 4 chronic kidney disease, or unspecified chronic kidney disease; N18.3 Chronic kidney disease, stage 3 (moderate); M19.90 Unspecified osteoarthritis, unspecified site; E78.2 Mixed hyperlipidemia; G20 Parkinson's disease; R25.1 Tremor, unspecified; D64.9 Anemia, unspecified; K63.5 Polyp of colon; K64.8 Other hemorrhoids
CPT/HCPCS: 88305

== ENCOUNTER 2017-11-10 07:24 | Inpatient (IN) | payer MEDICARE ==
[2017-11-02 14:09] LABS: Absolute Lymphocytes (CBC) 1.5 K/uL (0.7-4.9); Absolute Monocytes 0.7 K/uL (0.1-1.3); Basophils % 1.2 % (0-1.3); Eosinophils % 1.8 % (0-4.4); Lymphocytes % 13.2 % (15.3-44.8); MCV 67.4 fL (80-100); MPV 9.4 fL (7.6-11.3); Monocytes % 6.1 % (3.3-12.3); RBC Red Blood Cell Count 5.03 M/uL (4.33-5.43)
[2017-11-02 14:35] LABS: Hematocrit 31.9 % (39.6-49.0); Platelet Estimate ADEQ; Urine White Blood Cell Casts OK
[2017-11-02 14:36] LABS: Anisocytosis 1+; Blood Morphology Comment NOTED (NOT SEEN); Hypochromasia 2+
[2017-11-02 14:51] LABS: Potassium 4.6 mmol/L (3.5-5.1)
--- OUTSIDE RECORDS SUMMARY | 2017-11-10 07:30 | XMS REPORT ---
[...] Medications Results No Known Results Summary Purpose [employer] Submission
--- OUTSIDE RECORDS SUMMARY | 2017-11-10 07:30 | XMS REPORT ---
[...] Problem Erectile dysfunction N52.9 Active Assessment [facility] Z78.9 Active coordination Problem Mixed [...] Status Dosage System Date Date Matt S [facility] 13360557660 8.6-50 MG Active 1 tablet Orally Once a in the day evening as needed Aspirin [facility] 01578024029 325 MG Orally Active 1 tablet Once a day Cardizem LA [facility] 22206746843 180 MG Orally Active 1 tablet Once a day Losartan [facility] 22667965675 50MG Orally Active TAKE ONE Potassium Once a day TABLET BY MOUTH ONCE DAILY Symbicort [facility] 89146032708 160-4.5 MCG/ACT Active 2 puffs Inhalation Twice a day Xarelto [facility] 11097807465 15 MG Orally Active 1 tablet Once a day with food Perforomist [facility] 88439645823 20 MCG/2ML Active 2 ml Inhalation Twice a day Topiramate [facility] 52419697515 25 MG Orally Active 1 tablet Twice a day Pentoxifylline ER [facility] 66089981019 400 MG Orally Active 1 tablet Twice a day with meals ProAir HFA [facility] 70131448795 108 (90 Base) Active 2 puffs as MCG/ACT needed Inhalation every 6 hrs Metoprolol [facility] 51827750674 50 MG Orally Active 1 tablet Tartrate Twice a day with food Results No Known Results Summary Purpose eClinicalWorks Submission
--- OUTSIDE RECORDS SUMMARY | 2017-11-10 07:30 | XMS REPORT ---
[...] Status Dosage System Date Date ProAir HFA [facility] 45007847665 108 (90 Base) Active 2 puffs as MCG/ACT needed Inhalation every 6 hrs Lasix [facility] 94755042692 20 MG Orally Active 1 tablet Once a day Cardizem LA [facility] 44253996932 180 MG Orally Active 1 tablet Once a day Spiriva [facility] 87950416648 18 MCG Active 1 capsule HandiHaler Inhalation Once a day Pentoxifylline ER [facility] 52040666026 400 MG Orally Active 1 tablet Twice a day with meals Protonix [facility] 83388822728 40 MG Orally Active 1 tablet Once a day Topiramate [facility] 59933498288 25 MG Orally Active 1 tablet Twice a day Losartan [facility] 28220013812 50MG Orally Active TAKE ONE Potassium Once a day TABLET BY MOUTH ONCE DAILY Xarelto [facility] 25118692756 15 MG Orally Active 1 tablet Once a day with food Metoprolol [facility] 72069406476 50 MG Orally Active 1 tablet Tartrate Twice a day with food Senokot S [facility] 42844395724 8.6-50 MG Active 1 tablet Orally Once a in the day evening as needed Pulmicort [facility] 12846809863 0.25 MG/2ML Active 2 ml Inhalation Once a day Aspirin [facility] 28855328227 325 MG Orally Active 1 tablet Once a day Sinemet [facility] 15425909473 25-100 MG Active 1 tablet Orally Three times a day Symbicort [facility] 01799477138 80-4.5 MCG/ACT Active 2 puffs Inhalation Twice a day Ferrous Sulfate [facility] 63769698856 325 (65 Fe) MG Active 1 tablet Orally TID Results No Known Results Summary Purpose eClinicalWorks Submission
--- OUTSIDE RECORDS SUMMARY | 2017-11-10 07:30 | XMS REPORT ---
[...] Medications Results No Known Results Summary Purpose [employer] Submission
--- OUTSIDE RECORDS SUMMARY | 2017-11-10 07:30 | XMS REPORT ---
[...] Senokot S [facility] 37571633148 8.6-50 MG Active 1 tablet Orally Once a in the day evening as needed Symbicort [facility] 96676981273 80-4.5 MCG/ACT Active 2 puffs Inhalation Twice a day Sinemet [facility] 44898123914 25-100 MG Active 1 tablet Orally Three times a day Ferrous Sulfate [facility] 50730541509 325 (65 Fe) MG Active 1 tablet Orally TID Protonix [facility] 52437359656 40 MG Orally Active 1 tablet Once a day Cardizem LA [facility] 58519914196 180 MG Orally Active 1 tablet Once a day Xarelto [facility] 52195263962 15 MG Orally Active 1 tablet Once a day with food Metoprolol [facility] 66131922715 50 MG Orally Active 1 tablet Tartrate Twice a day with food Topiramate [facility] 26536355633 25 MG Orally Active 1 tablet Twice a day Lasix [facility] 89767056132 20 MG Orally Active 1 tablet Once a day Pentoxifylline ER [facility] 68243875873 400 MG Orally Active 1 tablet Twice a day with meals Pulmicort [facility] 62625516704 0.25 MG/2ML Active 2 ml Inhalation Once a day ProAir HFA [facility] 28640946161 108 (90 Base) Active 2 puffs as MCG/ACT needed Inhalation every 6 hrs Aspirin [facility] 22463994605 325 MG Orally Active 1 tablet Once a day Losartan [facility] 82327914606 50MG Orally Active TAKE ONE Potassium Once a day TABLET BY MOUTH ONCE DAILY Spiriva [facility] 23914508817 18 MCG Active 1 capsule HandiHaler Inhalation Once a day Results No Known Results Summary Purpose eClinicalWorks Submission
--- OUTSIDE RECORDS SUMMARY | 2017-11-10 07:30 | XMS REPORT ---
[...] End Status Dosage System Date Date Metoprolol [facility] 70996485169 50 MG Orally Active 1 tablet Tartrate Twice a day with food Symbicort [facility] 16046969662 160-4.5 MCG/ACT Active 2 puffs Inhalation Twice a day Aspirin [facility] 95152575564 325 MG Orally Active 1 tablet Once a day Pentoxifylline ER [facility] 43814793400 400 MG Orally Active 1 tablet Twice a day with meals Topiramate [facility] 59319269915 25 MG Orally Active 1 tablet Twice a day ProAir HFA [facility] 44599439846 108 (90 Base) Active 2 puffs as MCG/ACT needed Inhalation every 6 hrs Cardizem LA [facility] 87037026830 180 MG Orally Active 1 tablet Once a day Losartan [facility] 24277875675 50MG Orally Active TAKE ONE Potassium Once a day TABLET BY MOUTH ONCE DAILY Senokot S [facility] 42621783888 8.6-50 MG Active 1 tablet Orally Once a in the day evening as needed Perforomist [facility] 93119104183 20 MCG/2ML Active 2 ml Inhalation Twice a day Xarelto [facility] 81801903663 15 MG Orally Active 1 tablet Once a day with food Results No Known Results Summary Purpose eClinicalWorks Submission
--- OUTSIDE RECORDS SUMMARY | 2017-11-10 07:30 | XMS REPORT ---
[...] Medications Results No Known Results Summary Purpose Ask ZiggyinicalCarmine Submission
--- OUTSIDE RECORDS SUMMARY | 2017-11-10 07:30 | XMS REPORT ---
[...] Status Dosage System Date Date ProAir HFA [facility] 68660224077 108 (90 Base) Active 2 puffs as MCG/ACT needed Inhalation every 6 hrs Losartan [place] 04362557263 50MG Orally Active TAKE ONE Potassium Once a day TABLET BY MOUTH ONCE DAILY Xarelto [facility] 04308743243 15 MG Orally Active 1 tablet Once a day with food Pulmicort [facility] 55497138756 0.25 MG/2ML Active 2 ml Inhalation Once a day Senokot S [facility] 65732058186 8.6-50 MG Active 1 tablet Orally Once a in the day evening as needed Cardizem LA [facility] 07511610662 180 MG Orally Active 1 tablet Once a day Sinemet [facility] 75673748178 25-100 MG Active 1 tablet Orally Three times a day Protonix [facility] 06115052841 40 MG Orally Active 1 tablet Once a day Spiriva [facility] 12782269481 18 MCG Active 1 capsule HandiHaler Inhalation Once a day Ferrous Sulfate [facility] 30645509200 325 (65 Fe) MG Active 1 tablet Orally TID Metoprolol [facility] 26012750756 50 MG Orally Active 1 tablet Tartrate Twice a day with food Aspirin [facility] 66504297613 325 MG Orally Active 1 tablet Once a day Lasix [facility] 90020224027 20 MG Orally Active 1 tablet Once a day Topiramate [facility] 85268280276 25 MG Orally Active 1 tablet Twice a day Pentoxifylline ER [facility] 32249912825 400 MG Orally Active 1 tablet Twice a day with meals Symbicort [facility] 10318776038 80-4.5 MCG/ACT Active 2 puffs Inhalation Twice a day Results No Known Results Summary Purpose eClinicalWorks Submission
--- OUTSIDE RECORDS SUMMARY | 2017-11-10 07:30 | XMS REPORT ---
[...] Medications Results No Known Results Summary Purpose [facility] Submission
--- OUTSIDE RECORDS SUMMARY | 2017-11-10 07:31 | XMS REPORT ---
:1935 Author Organization eClinicalWorks Care Team Providers Name Role Phone Dane Contreras Provider Role Unavailable Allergies, Adverse Reactions, Alerts Substance Reaction Event Type Lisinopril Info Not Available Drug Allergy Problems Problem Type Condition Code Onset Dates Condition Status Assessment Tremor R25.1 Active Assessment Mixed hyperlipidemia E78.2 Active Assessment Repeated falls R29.6 Active Assessment Anemia, unspecified type D64.9 Active Problem Chronic pain syndrome G89.4 Active Assessment Hypertension I10 Active Problem Tremor R25.1 Active Assessment Parkinson''s disease G20 Active Problem Atrial fibrillation I48.91 Active Problem Hydrocele N43.3 Active Problem Hypertension I10 Active Problem Colonic mass K63.9 Active Problem Anemia, unspecified type D64.9 Active Assessment 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 Assessment 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 Problem 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 Assessment Atrial fibrillation I48.91 Active Problem Mixed hyperlipidemia E78.2 Active Problem Erectile dysfunction N52.9 Active Problem Lower GI bleed K92.2 Active Problem History of fall within past 90 days Z91.81 Active Problem Complaint of debility and malaise R53.81 Active Problem Osteoarthritis, 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 Active Assessment Preoperative examination Z01.818 Active Problem Parkinson''s disease G20 Active Problem Chronic kidney disease, stage 3 N18.3 Active Problem Chronic obstructive bronchitis J44.9 Active without exacerbation Problem Seasonal allergic rhinitis, J30.2 Active unspecified trigger Medications Medication Code Code Instructions Start End Status Dosage System Date Date Protonix [facility] 28224409859 40 MG Orally Active 1 tablet Once a day Lasix [facility] 70145797120 20 MG Orally Active 1 tablet Once a day ProAir HFA [facility] 18280382552 108 (90 Base) Active 2 puffs as MCG/ACT needed Inhalation every 6 hrs Cardizem LA [facility] 46966618521 180 MG Orally Active 1 tablet Once a day Topiramate [facility] 57106622231 25 MG Orally Active 1 tablet Twice a day Aspirin [facility] 61705498169 325 MG Orally Active 1 tablet Once a day Pulmicort [facility] 16406305682 0.25 MG/2ML Active 2 ml Inhalation Once a day Spiriva [facility] 51784097596 18 MCG Active 1 capsule HandiHaler Inhalation Once a day Xarelto [facility] 50927513330 15 MG Orally Active 1 tablet Once a day with food Pentoxifylline ER [facility] 42200077173 400 MG Orally Active 1 tablet Twice a day with meals Ferrous Sulfate [facility] 94006318053 325 (65 Fe) MG Active 1 tablet Orally TID Senokot S [facility] 37044206570 8.6-50 MG Active 1 tablet Orally Once a in the day evening as needed Symbicort [facility] 25004551282 80-4.5 MCG/ACT Active 2 puffs Inhalation Twice a day Losartan [facility] 71528840814 50MG Orally Active TAKE ONE Potassium Once a day TABLET BY MOUTH ONCE DAILY Metoprolol [facility] 90239018490 50 MG Orally Active 1 tablet Tartrate Twice a day with food Sinemet [facility] 58283061396 25-100 MG Active 1 tablet Orally Three times a day Results No Known Results Summary Purpose eClinicalWorks Submission
--- OUTSIDE RECORDS SUMMARY | 2017-11-10 07:31 | XMS REPORT ---
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 Problem Mixed hyperlipidemia E78.2 Active Problem Erectile dysfunction N52.9 Active Problem Lower GI bleed K92.2 Active Problem History of fall within past 90 days Z91.81 Active Problem Complaint of debility and malaise R53.81 Active Problem Osteoarthritis, 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
--- OUTSIDE RECORDS SUMMARY | 2017-11-10 07:31 | XMS REPORT ---
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 Problem Parkinson''s disease G20 Active Problem Chronic kidney disease, stage 3 N18.3 Active Problem Chronic obstructive bronchitis J44.9 Active without exacerbation Problem Chronic pain syndrome G89.4 Active Problem Seasonal allergic rhinitis, J30.2 Active unspecified trigger Problem Tremor R25.1 Active Medications Medication Code Code Instructions Start End Status Dosage System Date Date Cardi LA [facility] 66170609861 180 MG Orally Active 1 tablet Once a day Symbicort [facility] 36537588999 80-4.5 MCG/ACT Active 2 puffs Inhalation Twice a day Protonix [facility] 63031510274 40 MG Orally Active 1 tablet Once a day Senokot S [facility] 84748794531 8.6-50 MG Active 1 tablet Orally Once a in the day evening as needed Sinemet [facility] 99248663692 25-100 MG Active 1 tablet Orally Three times a day Spiriva [facility] 61581762196 18 MCG Active 1 capsule HandiHaler Inhalation Once a day Xarelto [facility] 54805897335 15 MG Orally Active 1 tablet Once a day with food Metoprolol [facility] 80293599822 50 MG Orally Active 1 tablet Tartrate Twice a day with food Pulmicort [facility] 97046228940 0.25 MG/2ML Active 2 ml Inhalation Once a day Ferrous Sulfate [facility] 14550343141 325 (65 Fe) MG Active 1 tablet Orally TID Losartan [facility] 37370742264 50MG Orally Active TAKE ONE Potassium Once a day TABLET BY MOUTH ONCE DAILY Lasix [facility] 48653895056 20 MG Orally Active 1 tablet Once a day Pentoxifylline ER [facility] 85360853256 400 MG Orally Active 1 tablet Twice a day with meals Topiramate [facility] 02200040325 25 MG Orally Active 1 tablet Twice a day ProAir HFA [facility] 86165975263 108 (90 Base) Active 2 puffs as MCG/ACT needed Inhalation every 6 hrs Aspirin [facility] 62886260389 325 MG Orally Active 1 tablet Once a day Results No Known Results Summary Purpose eClinicalWorks Submission
--- OUTSIDE RECORDS SUMMARY | 2017-11-10 07:31 | XMS REPORT ---
[...] Start End Status Dosage System Date Date Sinemet [facility] 56420273050 25-100 MG Active 1 tablet Orally Three times a day Senokot S [facility] 35751801145 8.6-50 MG Active 1 tablet Orally Once a in the day evening as needed ProAir HFA [facility] 98510995696 108 (90 Base) Active 2 puffs as MCG/ACT needed Inhalation every 6 hrs Xarelto [facility] 40168005570 15 MG Orally Active 1 tablet Once a day with food Topiramate [place] 39423505818 25 MG Orally Active 1 tablet Twice a day Protonix [facility] 40311198896 40 MG Orally Active 1 tablet Once a day Spiriva [facility] 73379783968 18 MCG Active 1 capsule HandiHaler Inhalation Once a day Symbicort [facility] 20604013818 80-4.5 MCG/ACT Active 2 puffs Inhalation Twice a day Pentoxifylline ER [facility] 53900089838 400 MG Orally Active 1 tablet Twice a day with meals Metoprolol [facility] 20139848385 50 MG Orally Active 1 tablet Tartrate Twice a day with food Ferrous Sulfate [facility] 81052187581 325 (65 Fe) MG Active 1 tablet Orally TID Losartan [facility] 06558833046 50MG Orally Active TAKE ONE Potassium Once a day TABLET BY MOUTH ONCE DAILY Pulmicort [facility] 58070942127 0.25 MG/2ML Active 2 ml Inhalation Once a day Aspirin [facility] 47349714606 325 MG Orally Active 1 tablet Once a day Lasix [facility] 67640280687 20 MG Orally Active 1 tablet Once a day Cardizem LA [facility] 50092321076 180 MG Orally Active 1 tablet Once a day Results No Known Results Summary Purpose eClinicalWorks Submission
--- OUTSIDE RECORDS SUMMARY | 2017-11-10 07:31 | XMS REPORT ---
[...] Medications Results No Known Results Summary Purpose [employer] Submission
[2017-11-10] MEDS ORDERED: CEFAZOLIN/SWI 1gm 1 GM/10 ML SYR ONE (07:42)
[2017-11-10] MEDS ORDERED: PROPOFOL 200 MG/20 ML VIAL IV ONE (07:50)
[2017-11-10] MEDS ORDERED: FENTANYL CITR 250 MCG/5 ML ONE (07:50)
[2017-11-10] MEDS ORDERED: ROCURONIUM 50 MG/5 ML VIAL IV ONE ×2 (07:54→10:55)
[2017-11-10] MEDS: NA CHLORIDE 0.9% 1,000 ML ONE ×2 (07:56→08:31)
[2017-11-10] MEDS ORDERED: ALBUTEROL 2.5 MG/3 ML NEB SOL ONE (08:13)
[2017-11-10] MEDS ORDERED: NS 0.9% VIAL 10 ML ONE (09:25)
[2017-11-10] MEDS ORDERED: Phenylephrine HCl 10 MG/ML 1 ML VIAL ONE (09:25)
[2017-11-10] MEDS ORDERED: EPHEDRINE SULF 50 MG/10 ML SYR ONE (09:26)
[2017-11-10] MEDS ORDERED: NA CHLORIDE 0.9% 1,000 ML ONE (09:32)
[2017-11-10] MEDS ORDERED: GLYCOPYRROLATE 0.2 MG/ML SYR ONE (10:55)
[2017-11-10] MEDS ORDERED: KETOROLAC 30 MG/ML INJ ONE (10:55)
[2017-11-10] MEDS ORDERED: ONDANSETRON HCL 40 MG/20 ML VIAL ONE (10:56)
[2017-11-10] MEDS ORDERED: NEOSTIGMINE 1 MG/ML -5 ML SYRINGE ONE (10:56)
--- NOTE | 2017-11-10 11:07 | P.OP ---
Mechanical Engineering Officer: MEDARDO DE JESUS Preoperative diagnosis: Right Colon Adenocarcinoma Postoperative diagnosis: Right Colon Adenocarcinoma Primary procedure: Open Right Hemicolectomy Anesthesia: GETA Estimated blood loss: <30cc Specimen: Right Colon Findings: Shortened Mesentery, colon well tattood Complications: None Drain(s): Nasogastric, Urinary catheter Transferred to: Recovery Room Condition: Good
[2017-11-10] MEDS: MEPERIDINE HCL 50 MG/ML AMP ONE ×3 (11:15→11:50)
[2017-11-10] MEDS ORDERED: D5.45NS W/KCL 20MEQ 1,000 ML IV SCH (12:00)
--- NOTE | 2017-11-10 12:26 | OP ---
Date of Procedure: 11/10/2017 Surgeon: Talon Abarca MD, Preoperative Diagnosis: Right colon adenocarcinoma. Postoperative Diagnosis: Right colon adenocarcinoma. Procedure Performed: Open right hemicolectomy with primary anastomosis. Anesthesia: General endotracheal. Estimated Blood Loss: Less than 30 cc. Specimen: Right colon. Findings: Foreshortened mesentery and colon well tattooed. Complications: None. Drains: Nasogastric and urinary catheter. Disposition: Transferred to recovery room in good condition. Procedure In Detail: After informed consent was obtained, the patient was brought to the operating r oom, prepped and draped in the usual sterile fashion. After adequate anesthesia was achieved, midlin e laparotomy incision was made through the skin with a 10-blade down through the subcutaneous tissues . Dissection continued down through Camper's fat and Nancie's fascia through the linea alba. The fa scial plane was opened using electrocautery and dissection continued down to the peritoneum. The per itoneum was grasped, elevated, and opened with Metzenbaum scissors safely in the supraumbilical posit ion. The abdomen was then opened in its entirety under direct visualization without evidence of comp lication. The abdomen was completely explored at this time. The liver was found to have no metastat ic disease. The remainder of the abdominal examination showed no evidence of metastatic disease. On full examination and exploration, the small bowel was run from the ileocecal valve to the ligament o f Treitz without finding any pathologic findings. The colon was then inspected at this time and ther e was heavy tattooing on the right side of the colon consistent with a finding of adenocarcinoma on p alpation, was able to determine the area of thickening in the colon consistent with the colonoscopy f indings and the tattooing area on the right side of the colon. Therefore, this was decided to be dem arcated as the area of dissection. Therefore, I began taking down like the white line of Toldt from lateral to medial approach using electrocautery. The plane was easy to get into and dissection brina nued down to mobilize the colon around the hepatic flexure. There were some adhesions between the ga llbladder and the transverse colon, which were taken down on the colonic side using both sharp and bl unt dissection as well as electrocautery ensuring that this was digitized and thinned prior to any th ermal device was used protecting the gallbladder and colon from thermal injury as much as possible. After this was completely mobilized, the colon was grasped, elevated, brought into the field. The me sentery was found to be somewhat foreshortened primarily in the area of the ileocecal valve. The sma ll bowel mesentery was then mobilized on the ileocecal confluence using electrocautery to take down t he peritoneal attachments. After this was mobilized completely, a mesenteric window was created usin g the electrocautery and an Endo TOMAS 75 blue load was fired across the terminal ileum region giving a pproximately 8-9 cm of terminal ileum with the specimen. I then found an area of the transverse colo n on the proximal hepatic flexure region, which was greater than 15 cm away from the area of concern on the right colon and created a mesenteric window here. The colon was somewhat large and redundant and therefore he had plenty of redundant colon. Then, a mesenteric window was created using electroc autery and once again a TOMAS 75 blue load was fired across the colon with good approximation of tissue s. I then used the LigaSure device to take down the mesentery to the right colon. The ileocolic ves tai was first visualized and this was taken with the LigaSure device quite easily and it was palpated and found to have good hemostasis at this time. A clip was placed in this position after the LigaSu re device ligated the area and good hemostasis was achieved. The LigaSure device was then used to di ssect up to the right colic vessels, which were skeletonized once again and taken separately using th e LigaSure device and once again, clips were placed on the proximal side after the LigaSure device wa s fired with good hemostasis. The clips were placed prophylactically as there was good hemostasis th roughout the procedure. The remainder of the mesentery was taken all the way to the prior specimen r esection line. The segment of omentum was also taken en bloc with this using a LigaSure device and t he specimen was passed off for pathologic examination this time after ensuring greater than 15 cm on the distal aspect of the colon, the area was inspected for proper hemostasis. No additional hemostat ic maneuvers were required. The area was copiously irrigated multiple times until completely clear a nd then both arms of the intestine were aligned. The transverse colon was aligned with the terminal ileum in a [id number]-bo-fxrf manner. These were secured to each other on the antimesenteric borders of baljit th the colon and the small bowel using a 2-0 silk suture aligning antimesenteric border to antimesent kelly border. A sterile towel was then brought in as a soilage protector. After this was performed, the electrocautery was used to open up the colon along the tenia on the antimesenteric border as well as on the small bowel on the antimesenteric border. The TOMAS 75 blue was then again fired across to make a common channel. The area was inspected. There was no hemostatic maneuvers required and the c ommon channel appeared to be nice and patent at this time. The common defect was then closed using a 2-0 PDS in a canal-type stitch with good approximation of the tissues. A second layer of Lembert laura tures using 2-0 silks were used to secure the resection margin and anastomosis with a second layer of Lembert sutures in an interrupted fashion. The common channel was once again palpated and found to be in good anatomic position. The area was copiously irrigated once again multiple times. The mesen teric defect was closed with 3-0 Vicryl in a running fashion with good alignment and the omentum was then placed and wrapped around this area. The abdomen was copiously irrigated multiple times until c ompletely clear and suctioned out. The patient was then positioned in neutral position, and the abdo men was closed at this time using a #1 looped PDS in a running fashion with good approximation of tis sues. Please also note that at the beginning of the procedure upon entering the abdomen, the large A robbie retractor was used as a wound protector throughout the procedure. The Viral retractor was rem shabbir obviously prior to closure, and once again, the abdomen was closed with a #1 looped PDS. The sk in was then copiously irrigated once again and closed with interrupted nataliya and a sterile dressing was placed over top. The patient tolerated the procedure well without evidence of complication, tra nsferred to the PACU in good condition. All counts were correct at the end of the case. JOSIE/TG Voice ID: [id number] Report ID: [id number]
[2017-11-10] MEDS: HYDROMORPHONE HCL 1 MG/ML INJ IV PRN ×4 (13:14→22:08)
[2017-11-10] MEDS: CEFOXITIN/SWI 1gm 1 GM/10 ML SYR IV SCH ×3 (13:14→23:50)
[2017-11-10] MEDS: METRONIDAZOLE 500mg IVPB 500 MG/100 ML BAG IV SCH ×3 (13:14→23:49)
[2017-11-10] MEDS ORDERED: D5 0.45 NS 1,000 ML IV SCH ×2 (16:00→23:52)
[2017-11-11] MEDS ORDERED: FUROSEMIDE 40 MG/4 ML VIAL IV ONE ×2 (01:48→02:00)
[2017-11-11] MEDS ORDERED: FUROSEMIDE 40 MG/4 ML VIAL ONE (01:50)
[2017-11-11] MEDS ORDERED: D5 0.45 NS 1,000 ML IV SCH (02:00)
[2017-11-11 04:47] LABS: Absolute Lymphocytes (CBC) 0.9 K/uL (0.7-4.9); Absolute Monocytes 1.1 K/uL (0.1-1.3); Absolute Neutrophil 13.8 K/uL (1.8-8.0); Basophils % 0.2 % (0-1.3); Lymphocytes % 5.9 % (15.3-44.8); MCH 19.8 pg (27.0-35.0); MCV 68.1 fL (80-100); MPV 8.8 fL (7.6-11.3); Monocytes % 6.8 % (3.3-12.3)
[2017-11-11 04:51] LABS: Arterial Blood Carboxyhemoglob 2.1 % (0-1.5); Blood Gas Oxyhemoglobin 93.8 % (94-97); Blood O2 Saturation 96.5 % (92-98.5)
[2017-11-11 05:09] LABS: Magnesium 1.7 mg/dL (1.8-2.4); Phosphorus 4.7 mg/dL (2.5-4.9)
[2017-11-11 05:11] LABS: Potassium 5.8 mmol/L (3.5-5.1)
[2017-11-11] MEDS ORDERED: SOD POLYSTYREN SUL 15 GM/60 ML UCUP PR ONE (05:27)
--- NOTE | 2017-11-11 05:30 | P.CNS ---
Date of Consult: 11/11/17 Reason for Consult: Acute respiratory failure Requesting Physician: Talon Abarca Chief Complaint: Shortness of breath History of Present Illness: Mr Jaquez is an 82-year-old male with history of multiple medical problems including hypertension, chronic atrial fibrillation on anticoagulation with Xarelto, CKD, COPD, who was admitted by Dr. Abarca in order to perform right hemicolectomy due to adenocarcinoma of the colon. The procedure was successfully done yesterday. The patient was kept NPO, with IV fluids. Overnight, the patient started complaining of progressive shortness of breath, his O2 sat was 95% on 5 L of oxygen, BP 107/58. Physical exam he had bilateral rales with expiratory wheezing. No fever or cough. He denied any chest pain. Chest-x-ray was remarkable for bilateral infiltrate likely secondary to volume overload, possible right lobe related pleural effusion. ABG showed pH 7.24, pC02 52.9, bicarb 21.7. Allergies No Known Allergies Allergy (Verified 11/02/17 11:37) Home medications list reviewed: Yes Home Medications: Pentoxifylline 400 mg PO BID 11/21/15 Losartan Potassium [Cozaar*] 50 mg PO [id number] 04/24/16 Rivaroxaban [Xarelto*] 15 mg PO DAILY #30 tablet 07/10/16 Topiramate 25 mg PO BID 06/17/17 Budesonide [Pulmicort*] 0.25 mg IH DAILY 07/15/17 Diltiazem HCl [Cartia Xt] 180 mg PO [id number] 07/15/17 Tiotropium [Spiriva Handihaler*] 1 sprays IH DAILY #1 inh 07/21/17 Albuterol Sulfate [Proair Respiclick] 2 puff IH QID 09/29/17 Metoprolol Tartrate 50 mg PO [id number] 09/29/17 Rivaroxaban [Xarelto*] 15 mg PO DAILY 09/29/17 Diphenhydramine [Benadryl Tab/Cap] 25 mg PO BID 11/02/17 Polyethylene Glycol 3350 [Miralax] 17 gm PO PRN PRN 11/02/17 predniSONE [Deltasone] 10 mg PO DAILY 11/02/17 - Past Medical/Surgical History Diabetic: No -: parkinsons -: copd -: afib -: HTN -: hyperlipidemia -: colon cancer -: GERD -: Atrial fibrillation, chronic anti coagulation -: GERD -: Anemia of chronic disease -: Chronic renal disease -: right ing. 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 - Family History Father History Unknown: Yes Medical History: Heart disease, Hypertension Mother History Unknown: Yes Medical History: Heart disease, Hypertension Brother History Unknown: Yes Medical History: Heart disease daughter Medical History: Cancer Notes: , throat lung mouth breast - Social History Smoking Status: Former smoker (quit 3 years ago) Alcohol use: No CD- Drugs: No Caffeine use: Yes Place of Residence: Home Review of Systems 10-point ROS is otherwise unremarkable Physical Examination Temp Pulse Resp BP Pulse Ox 98.5 F 85 20 110/67 95 11/11/17 00:00 11/11/17 02:00 11/11/17 00:00 11/11/17 02:00 11/11/17 00:00 General: Alert, Mild distress (Due to shortness of breath) HEENT: Atraumatic, PERRLA, Mucous membr. moist/pink, EOMI, Sclerae nonicteric Neck: Supple, 2+ carotid pulse no bruit, No LAD, Without JVD or thyroid abnormality Respiratory: Normal air movement, Crackles/rales (Bibasilar rales), Expiratory wheezes Cardiovascular: Normal S1 S2, Irregular heart rate/rhythm Gastrointestinal: Normal bowel sounds, No tenderness Musculoskeletal: No tenderness Integumentary: No rashes Neurological: Normal speech, Normal tone, Normal affect Lymphatics: No axilla or inguinal lymphadenopathy Laboratory Data (last 24 hrs) 11/11/17 03:54: Sodium 139, Potassium 5.8 H*, BUN 37 H, Creatinine 2.80 H D, Glucose 134 H, Phosphorus 4.7, Magnesium 1.7 L 11/11/17 03:54: WBC 15.9 H D, Hgb 9.3 L, Hct 32.0 L, Plt Count 203 - Problems (1) Colon adenocarcinoma Current Visit: Yes Status: Acute (2) COPD (chronic obstructive pulmonary disease) Onset Date: 04/28/16 Current Visit: No Status: Acute Qualifiers: COPD type: COPD with acute exacerbation Qualified Code(s): J44.1 - Chronic obstructive pulmonary disease with (acute) exacerbation (3) Atrial fibrillation Onset Date: 11/05/16 Current Visit: No Status: Chronic Qualifiers: Atrial fibrillation type: chronic Qualified Code(s): I48.2 - Chronic atrial fibrillation (4) Chronic anticoagulation Onset Date: 07/18/17 Current Visit: No Status: Chronic (5) Chronic renal disease Onset Date: 07/18/17 Current Visit: No Status: Chronic Qualifiers: Chronic kidney disease stage: stage 2 (mild) Qualified Code(s): N18.2 - Chronic kidney disease, stage 2 (mild) Conclusions/Impression: After held IV fluids, and treat the patient with IV Lasix, his symptoms gradually improved. He had an echo done on 07/15/17 which shows normal LV systolic function with an EF of 51-55% but sign of diastolic dysfunction. We need to resume his IV fluids however I will wait for quarry supervisor evaluation and recommendation, since the patient urine output is limited. Will continue follow-up of the patient along this admission.
[2017-11-11 05:37] LABS: Anisocytosis 1+; Basophilic Stippling 1+; Blood Morphology Comment NOTED (NOT SEEN); Hypochromasia 2+; Platelet Estimate ADEQ
--- NOTE | 2017-11-11 06:06 | RAD REPORT ---
EXAM DESCRIPTION: Betty Single View11/11/2017 2:36 am CLINICAL HISTORY: sob COMPARISON: October 13, 2017 FINDINGS: The right base has become hazy. Small right pleural effusion is present. The left lung appears clear of acute infiltrate. The heart mildly enlarged IMPRESSION: Right base has become hazy probably representing pneumonia. Small right pleural effusion is present
[2017-11-11 06:13] LABS: Arterial Blood Carboxyhemoglob 2.1 % (0-1.5); Blood Gas Oxyhemoglobin 87.2 % (94-97); Blood O2 Saturation 89.5 % (92-98.5)
[2017-11-11] MEDS: HYDROMORPHONE HCL 1 MG/ML INJ IV PRN ×4 (06:31→22:39)
[2017-11-11] MEDS ORDERED: IPRATROPIUM BROM 0.5MG/2.5ML NEB PRN (07:02)
[2017-11-11] MEDS: NA CHLORIDE 0.9% 1,000 ML IV SCH ×2 (08:00→14:24)
[2017-11-11] MEDS: ARFORMOTEROL TARTRATE 15 MCG/2 ML VIAL.NEB NEB SCH ×2 (08:51→21:02)
[2017-11-11] MEDS: TIOTROPIUM 5 SPRAYS/INHALER IH SCH (09:00)
[2017-11-11] MEDS ORDERED: ENOXAPARIN 40 MG/0.4 ML SQ SCH (09:00)
[2017-11-11] MEDS: PANTOPRAZOLE 40 MG INJ IVP SCH (09:17)
[2017-11-11] MEDS: ACETYLCYST 20% 800 MG/4 ML VIAL PO SCH ×2 (09:17→21:25)
[2017-11-11] MEDS: Levofloxacin 250mg IV 250 MG/50 ML BAG IV SCH (09:18)
[2017-11-11] MEDS: ONDANSETRON 4 MG/2 ML VIAL IV PRN ×2 (10:33→17:02)
--- NOTE | 2017-11-11 11:49 | EKG ---
Test Date: 2017-11-11 Test Time: 08:58:04 Database Dba: DEVANTE MEASUREMENT RESULTS: Intervals: Rate: 110 CA: QRSD: 118 QT: 338 QTc: 457 [place]: P: CA: QRS: 61 T: 21 INTERPRETIVE STATEMENTS: Atrial fibrillation with rapid ventricular response with premature ventricular or aberrantly conducted complexes Right bundle branch block Abnormal ECG Compared to ECG 07/15/2017 10:11:39 Right bundle-branch block now present Aberrant conduction of supraventricular beat(s) no longer present Incomplete right bundle-branch block no longer present ST (T wave) deviation no longer present Electronically Signed On 11-11-17 11:48:09 CDT by Palomo Baez
--- NOTE | 2017-11-11 12:38 | RAD REPORT ---
EXAM DESCRIPTION: RAD - Chest Single View - 11/11/2017 12:30 pm CLINICAL HISTORY: Pneumonia, pleural effusion COMPARISON: November 11 portable chest, October 13 CT chest TECHNIQUE: AP portable chest image was obtained 1216 hours . FINDINGS: Chronic interstitial lung disease is present accentuated by shallow inspiration. Hazy righ t base opacification has improved but not fully resolved. No new or progressive left lung field findi ng. Cardiac silhouette remains enlarged. Vasculature is mildly prominent. No pneumothorax. No acute a ortic findings suspected. IMPRESSION: Shallow inspiration film showing partial clearing of right base pleural and parenchymal opacification.
--- NOTE | 2017-11-11 14:52 | P.PN ---
Subjective Date of Service: 11/11/17 Primary Care Provider: Dr. Vela; Pulmonary-Dr. Starks Chief Complaint: Shortness of breath Subjective: Doing well Physical Examination - Vital Signs Temperature: 98.1 F Blood Pressure: 147/66 Pulse: 98 Respirations: 19 Pulse Ox (%): 94 - Physical Exam General: Alert, In no apparent distress, Cooperative HEENT: Atraumatic Neck: Supple Respiratory: Expiratory wheezes Cardiovascular: Irregular heart rate/rhythm (Atrial fibrillation, rate controlled) Gastrointestinal: Hypoactive, Other (Postoperative changes) Musculoskeletal: No tenderness, No warmth Integumentary: No erythema, No warmth, No cyanosis Neurological: Normal affect - Studies Laboratory Data (last 24 hrs) 11/11/17 10:14: Potassium 5.2 H 11/11/17 03:54: Sodium 139, Potassium 5.8 H*, BUN 37 H, Creatinine 2.80 H D, Glucose 134 H, Phosphorus 4.7, Magnesium 1.7 L 11/11/17 03:54: WBC 15.9 H D, Hgb 9.3 L, Hct 32.0 L, Plt Count 203 Medications List Reviewed: Yes Assessment & Plan Physician Review Additional Text: Impression: Colon cancer status post hemicolectomy. Shortness of breath likely COPD versus CHF related. Likely underlying diastolic dysfunction. Need to consider pneumonia as well. COPD, mild exacerbation Atrial fibrillation on chronic anti coagulation therapy Hypertension Chronic renal disease, acute on chronic Hyperkalemia Plan: Case discussed at length with surgery. We were consulted for medical management. Shortness of breath likely related to COPD versus CHF verses pneumonia. Will start IV Levaquin. Will encourage incentive spirometer. Pulmonology consulted to further evaluate. Will continue with COPD medication. Surgery recommends not to start any IV steroids as this may interfere with healing process. Will maintain sats above 90%. Patient with hyperkalemia. Patient given Kayexalate. Will monitor this closely. Await further recommendations from nephrology who is been consulted for acute on chronic renal disease to consider IV fluids at a low rate. Will monitor for diastolic CHF. Surgery wants to wait on full-dose anticoagulation therapy at least until tomorrow if hemoglobin stable and no evidence of bleeding. Patient can start ice chips as per surgery. Will reassess tomorrow.
--- NOTE | 2017-11-11 15:31 | P.CNS ---
Date of Consult: 11/11/17 Reason for Consult: COPD management Primary Care Provider: Dr. Vela; Pulmonary-Dr. Starks Chief Complaint: Shortness of breath History of Present Illness: Patient is 82 years of age well known to me with a history of COPD was admitted to the hospital for dissection for his colon cancer he has pretty end-stage chest terminal COPD compliant with his bronchodilator he is doing well right now he denies any shortness of breath although he has a chronic cough productive of mucoid foamy sputum complains of abdominal pain patient underwent a right hemicolectomy he is anti coagulated at home Allergies No Known Allergies Allergy (Verified 11/02/17 11:37) Home Medications: Pentoxifylline 400 mg PO BID 11/21/15 Losartan Potassium [Cozaar*] 50 mg PO [id number] 04/24/16 Rivaroxaban [Xarelto*] 15 mg PO DAILY #30 tablet 07/10/16 Topiramate 25 mg PO BID 06/17/17 Budesonide [Pulmicort*] 0.25 mg IH DAILY 07/15/17 Diltiazem HCl [Cartia Xt] 180 mg PO [id number] 07/15/17 Tiotropium [Spiriva Handihaler*] 1 sprays IH DAILY #1 inh 07/21/17 Albuterol Sulfate [Proair Respiclick] 2 puff IH QID 09/29/17 Metoprolol Tartrate 50 mg PO [id number] 09/29/17 Rivaroxaban [Xarelto*] 15 mg PO DAILY 09/29/17 Diphenhydramine [Benadryl Tab/Cap] 25 mg PO BID 11/02/17 Polyethylene Glycol 3350 [Miralax] 17 gm PO PRN PRN 11/02/17 predniSONE [Deltasone] 10 mg PO DAILY 11/02/17 - Past Medical/Surgical History Diabetic: No -: parkinsons -: copd -: afib -: HTN -: hyperlipidemia -: colon cancer -: GERD -: Atrial fibrillation, chronic anti coagulation -: GERD -: Anemia of chronic disease -: Chronic renal disease -: right ing. 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 - Family History Father History Unknown: Yes Medical History: Heart disease, Hypertension Mother History Unknown: Yes Medical History: Heart disease, Hypertension Brother History Unknown: Yes Medical History: Heart disease daughter Medical History: Cancer Notes: , throat lung mouth breast - Social History Smoking Status: Former smoker (quit 3 years ago) Alcohol use: No CD- Drugs: No Caffeine use: Yes Place of Residence: Home Review of Systems General: Weakness Respiratory: Cough, Shortness of Breath Gastrointestinal: Nausea, Abdominal Pain Physical Examination Temp Pulse Resp BP Pulse Ox 98.1 F 98 H 19 147/66 H 94 11/11/17 14:52 11/11/17 14:52 11/11/17 14:52 11/11/17 14:52 11/11/17 14:52 General: Alert, Oriented x3 HEENT: Atraumatic Neck: Supple Respiratory: Diminished, Expiratory wheezes Cardiovascular: No edema, Normal S1 S2 Gastrointestinal: Hypoactive, Tenderness Laboratory Data (last 24 hrs) 11/11/17 10:14: Potassium 5.2 H 11/11/17 03:54: Sodium 139, Potassium 5.8 H*, BUN 37 H, Creatinine 2.80 H D, Glucose 134 H, Phosphorus 4.7, Magnesium 1.7 L 11/11/17 03:54: WBC 15.9 H D, Hgb 9.3 L, Hct 32.0 L, Plt Count 203 Conclusions/Impression: Patient is 82 years of age with a history of COPD well known to me is compliant with his bronchodilators at home patient has a microcytic anemia I suspect from is colonic cancer probably iron deficient he has hypoxemia and hypercapnia at baseline chest x-ray shows COPD with interstitial lung disease currently vital signs are stable titrate sat to 90% incentive spirometry patient has renal insufficiency with hyperkalemia patient was given 1 dose of Kayexalate renal function is slightly worse continue with brought Wanna and Spiriva
[2017-11-11 16:19] LABS: Ferritin 67.7 ng/mL (26-388)
[2017-11-11] MEDS ORDERED: LORazepam 2 MG/ML VIAL IV PRN (16:43)
[2017-11-11 19:20] LABS: Arterial Blood Carboxyhemoglob 1.9 % (0-1.5); Blood Gas Oxyhemoglobin 87.4 % (94-97); Blood O2 Saturation 89.6 % (92-98.5)
[2017-11-11 20:22] LABS: Urine Appearance CLOUDY; Urine Bilirubin NEGATIVE (NEG); Urine Blood 1+ (NEG); Urine Color YELLOW; Urine Glucose NEGATIVE (NEG); Urine Protein TRACE (NEG); Urine Urobilinogen 0.2 mg/dL (0.2-1.0)
[2017-11-11 20:47] LABS: Urine Microscopic Reflex ORDER UMIC
[2017-11-11 20:58] LABS: Urine Bacteria <20 /HPF (NONE SEEN); Urine Coarse Granular Casts 0-5 /LPF (NONE SEEN); Urine Culture Reflex Order REFLEXED; Urine Mucus 1+ /HPF (NONE SEEN); Urine RBC <5 /HPF (NONE SEEN)
[2017-11-11 20:59] LABS: Urine Amorphous Sediment 1+ /HPF (NONE SEEN)
[2017-11-11 22:32] LABS: Potassium 5.2 mmol/L (3.5-5.1)
[2017-11-12] MEDS: METOPROLOL TARTRATE 5 MG/5 ML INJ IV PRN ×2 (03:28→11:43)
[2017-11-12] MEDS: NA CHLORIDE 0.9% 1,000 ML IV SCH ×4 (04:00→23:10)
[2017-11-12 05:31] LABS: Absolute Neutrophil 12.3 K/uL (1.8-8.0); Basophils % 1.6 % (0-1.3); Hematocrit 32.5 % (39.6-49.0); Lymphocytes % 6.9 % (15.3-44.8); MCH 20.3 pg (27.0-35.0); MPV 8.8 fL (7.6-11.3); Monocytes % 6.7 % (3.3-12.3)
[2017-11-12 05:32] LABS: MCV 67.6 fL (80-100)
[2017-11-12 05:46] LABS: Phosphorus 4.2 mg/dL (2.5-4.9); Potassium 5.3 mmol/L (3.5-5.1)
[2017-11-12] MEDS ORDERED: Ringers Lactate 0 ML IV ONE (07:44)
[2017-11-12] MEDS: ARFORMOTEROL TARTRATE 15 MCG/2 ML VIAL.NEB NEB SCH ×2 (08:03→19:57)
[2017-11-12] MEDS: Levofloxacin 250mg IV 250 MG/50 ML BAG IV SCH (08:26)
[2017-11-12] MEDS: METOPROLOL TAR 50 MG TAB PO SCH ×2 (08:28→16:24)
[2017-11-12] MEDS: PANTOPRAZOLE 40 MG INJ IVP SCH (08:29)
[2017-11-12] MEDS: CARBIDOPA/LEVODOPA 25/100 TAB PO SCH ×2 (08:29→19:58)
[2017-11-12] MEDS: TIOTROPIUM 5 SPRAYS/INHALER IH SCH (08:29)
[2017-11-12] MEDS: RIVAROXABAN 15 MG TABLET PO SCH (08:29)
[2017-11-12] MEDS: ACETYLCYST 20% 800 MG/4 ML VIAL PO SCH ×2 (08:30→19:58)
[2017-11-12] MEDS: ONDANSETRON 4 MG/2 ML VIAL IV PRN ×2 (08:36→16:24)
[2017-11-12] MEDS: HYDROMORPHONE HCL 1 MG/ML INJ IV PRN ×3 (09:14→23:08)
--- NOTE | 2017-11-12 09:51 | CON ---
Date of Consultation: 11/11/2017 Chief Complaint: Acute kidney injury. History Of Present Illness: Acute kidney injury, borderline oliguric, associated with prerenal azotemia and nonoliguric acute tubular necrosis secondary to renal hypoperfusion. The patient also was found to have hyperkalemia and was treated with Kayexalate. The patient has multiple medical problems including history of hypertension; chronic atrial fibrillation, on anticoagulation with Xarelto; chronic kidney, stage 3; advanced COPD with O2 nasal cannula requirement. The patient was admitted to the hospital for right hemicolectomy for management of adenocarcinoma of the colon. Procedure was done yesterday. Subsequently, the patient developed shortness of breath and oxygenation dropped. The patient was started on O2 nasal cannula and SpO2 was 95% on 5 L oxygen. Blood pressure remained borderline. The latest blood pressure was 107/58. The patient developed shortness of breath, received 1 dose of Lasix. The patient had a CT scan done with IV contrast for evaluation of abdomen with history of colon cancer. The patient is transferred to ICU for shortness of breath and hypoxemia. The patient was started on IV fluids for mild hydration after he received IV contrast. Mucomyst was started after he had contrast done for CT scan. Renal function has not improved. Creatinine level has risen from 1.8 to 2.8, and BUN is 37. Hyperkalemia was up to 5.8 and after he received Kayexalate, potassium level improved to 5.2. This afternoon, the patient is transferred to ICU for shortness of breath. Review of Systems: General: The patient is complaining of generalized weakness. Denies syncope. Eyes: Denies vision changes. Ears, Nose, Mouth, and Throat: Denies sore throat, earache. Respiratory: Has some wheezing and shortness of breath. GI: Denies nausea, vomiting. Denies melena, hematemesis. : Denies dysuria, hematuria. All other systems reviewed and all are negative. Past Medical History: COPD; atrial fibrillation; chronic kidney disease, stage 3; baseline creatinine 1.3; hypertension; hyperlipidemia; colon cancer; GERD; atrial fibrillation, on anticoagulation; right inguinal hernia; right middle finger surgery. Family History: Father had a heart disease, hypertension. Mother heart disease , hypertension. Brother; heart disease. Daughter is , she had a throat , mouth, and breast cancer. Social History: Former smoker, quit smoking 3 years ago. Denies alcohol or illicit drugs. Physical Examination: General: The patient is in mild respiratory distress. Eyes: EOMI and anicteric sclerae. Ears, Nose, Mouth, and Throat: Oral mucosa moist. No pallor. Lungs: Diminished expiratory wheezes. Heart: S1, S2. No pericardial friction rub. Abdomen: Hypoactive bowel sounds. No tenderness. Extremities: Some edema present in both legs. Neurological: Moving extremities. Cranial nerves intact. Psychiatric: Alert and oriented x3. Normal affect. Vital Signs: Blood pressure is 147/66, heart rate is 98, temperature 98.1, respiratory rate 19, SpO2 94%. Laboratory Data: Sodium 139, potassium 5.8, BUN 37, creatinine 2.8, glucose 134 , phosphorus 4.7, magnesium 1.7. WBC 15.9, hemoglobin 9.3, platelet count is 203,000. Impression And Plan: 1. Acute kidney injury, borderline oliguric, associated with severe renal hypoperfusion, acute tubular necrosis, likely the patient has some element of contrast-induced nephropathy. IV fluids were started for hydration in view of the acute kidney injury with contrast-induced nephropathy. The patient will continue Mucomyst. 2. Hyperkalemia. The patient was treated with Kayexalate. Reevaluate potassium level. 3. Shortness of breath, chronic obstructive pulmonary disease exacerbation. Continue bronchodilator. 4. History of colon cancer, status post surgery. Further recommendation from Surgical team. 5. Chronic kidney disease, stage 3. Plan is to check renal ultrasound. 6. Hypertension. Hold blood pressure medication. The patient may require IV fluids for borderline hypotension. Currently, blood pressure improved. Monitor blood pressure. Adjust medication as needed. Avoid angiotensin receptor mirian and avoid GASTON inhibitor. The patient will continue beta- mirian according to previous order. 7. Status post surgery for colon cancer. Continue broad-spectrum antibiotics. Adjust dose to renal dose. ROSA/TG Voice ID: [id number] Report ID: [id number] LORENA
--- NOTE | 2017-11-12 10:30 | P.PN ---
Subjective Date of Service: 11/12/17 Primary Care Provider: Dr. Vela; Pulmonary-Dr. Starks Chief Complaint: Acute on chronic respiratory failure Patient was transferred to the ICU for desaturation he has severe COPD most likely he has desats are from diaphragmatic dysfunction secondary to his recent surgery is currently doing well denies any complaints patient is iron deficient Review of Systems General: Weakness Respiratory: Cough, Shortness of Breath Physical Examination - Vital Signs Temperature: 98.4 F Blood Pressure: 121/84 Pulse: 123 Respirations: 26 Pulse Ox (%): 94 - Physical Exam General: Alert, Oriented x3 Respiratory: Clear to auscultation bilaterally, Diminished Cardiovascular: No edema, Normal S1 S2 - Studies Laboratory Data (last 24 hrs) 11/12/17 07:44: Potassium 5.0 11/12/17 05:20: Sodium 141, Potassium 5.3 H, BUN 49 H, Creatinine 2.90 H, Glucose 129 H, Phosphorus 4.2, Magnesium 2.0 11/12/17 05:20: WBC 14.5 H, Hgb 9.7 L, Hct 32.5 L, Plt Count 173 11/11/17 : Potassium Cancelled 11/11/17 22:01: Sodium 139, Potassium 5.2 H, BUN 47 H, Creatinine 2.90 H, Glucose 136 H 11/11/17 10:14: Potassium 5.2 H Microbiology Data (last 24 hrs): 11/11/17 22:01 Blood - Blood Anaerobic Blood Culture - Final Medications List Reviewed: Yes Assessment & Plan - Problems (Diagnosis) (1) COPD exacerbation Onset Date: 11/05/16 Current Visit: No Status: Acute Plan: Patient is 82 years of age transfer to the ICU for desaturation he has severe terminal COPD desaturation after surgery is expected due to diaphragmatic dysfunction currently doing well titrate sat to 88-90% continue with bronchodilator in addition patient also has renal failure potassium is still elevated patient is iron deficient will benefit from a 9 transfusion patient's renal function is worse ipratropium scheduled
[2017-11-12] MEDS: SOD FERRIC GLUC COMPLX/SUCROSE 125 MG in NA CHLORIDE 0.9% 100 ML IV SCH (11:16)
[2017-11-12] MEDS: IPRATROPIUM BROM 0.5MG/2.5ML NEB SCH ×3 (12:04→19:57)
--- NOTE | 2017-11-12 12:10 | P.PN ---
Subjective Date of Service: 11/12/17 Primary Care Provider: Dr. Vela; Pulmonary-Dr. Starks Chief Complaint: Acute on chronic respiratory failure Subjective: Other (Patient looking better than yesterday. Shortness of breath improved. Patient was on BiPAP today.) Physical Examination - Vital Signs Temperature: 98.4 F Blood Pressure: 119/68 Pulse: 162 Respirations: 26 Pulse Ox (%): 94 - Physical Exam General: Alert, In no apparent distress, Cooperative HEENT: Atraumatic Neck: Supple Respiratory: Other (Poor air movement on right side) Cardiovascular: Irregular heart rate/rhythm (Atrial fibrillation rate slightly elevated) Gastrointestinal: Hypoactive, Non-distended, No masses, No rebound, No guarding , Tenderness (Minimal tenderness. Post operative changes noted) Integumentary: No tenderness/swelling, No erythema, No warmth, No cyanosis Neurological: Normal speech, Normal strength at 5/5 x4 extr, Normal tone, Normal affect - Studies Laboratory Data (last 24 hrs) 11/12/17 07:44: Potassium 5.0 11/12/17 05:20: Sodium 141, Potassium 5.3 H, BUN 49 H, Creatinine 2.90 H, Glucose 129 H, Phosphorus 4.2, Magnesium 2.0 11/12/17 05:20: WBC 14.5 H, Hgb 9.7 L, Hct 32.5 L, Plt Count 173 11/11/17 : Potassium Cancelled 11/11/17 22:01: Sodium 139, Potassium 5.2 H, BUN 47 H, Creatinine 2.90 H, Glucose 136 H Microbiology Data (last 24 hrs): 11/11/17 22:01 Blood - Blood Anaerobic Blood Culture - Final Medications List Reviewed: Yes Assessment & Plan Physician Review Additional Text: Impression: Colon cancer status post hemicolectomy. Shortness of breath likely COPD related with atelectasis and diaphragmatic dysfunction due to recent surgery. Possible on pneumonia to the right lower lobe noted CHF, diastolic dysfunction, chronic. COPD, mild exacerbation Atrial fibrillation on chronic anti coagulation therapy Hypertension Chronic renal disease, acute on chronic Hyperkalemia Anemia with history of iron deficiency Plan: Patient now in ICU. Patient improved. Will wean off BiPAP. Will maintain sats above 90%. Encourage incentive spirometer. 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 Right lower lobe pneumonia suspected with possible atelectasis. Continue IV antibiotic therapy. Continue COPD treatment. Will discuss case with pulmonology. Surgery wants to hold off on any IV steroids due to surgery. Patient with acute on chronic renal disease. Recheck potassium improved. Await further recommendations from nephrology. Continue with IV fluids. Will restart metoprolol for blood pressure control and rate control. Will restart his anti coagulation therapy because of his atrial fibrillation. Case discussed with surgery yesterday. Surgery recommended to restart medication if hemoglobin stable. Hemoglobin stable this time. Pulmonology recommends iron infusion to maintain hemoglobin. Will continue closely. Will monitor for any changes. Patient will remain in ICU for at least 1 more day. Patient started on ice chips yesterday. He is tolerating this. Will discontinue Ativan. Time Spent Managing Pts Care (In Minutes): 55
[2017-11-12] MEDS ORDERED: METOPROLOL TARTRATE 5 MG/5 ML INJ IV PRN (14:59)
--- NOTE | 2017-11-12 15:34 | RAD REPORT ---
EXAM DESCRIPTION: US - Renal Ultrasound-Complete - 11/12/2017 2:41 pm CLINICAL HISTORY: arf COMPARISON: No comparisons FINDINGS: Both kidneys are mildly echogenic. The right kidney measures 10.5 x 5.5 x 4.5 cm. No hydronephrosis, focal mass or perinephric fluid. The left kidney measures 10.8 x 6.0 x 4.8 cm. No hydronephrosis, focal mass or perinephric fluid. 4.7 x 4.5 cm cyst medial left kidney. The urinary bladder is incompletely distended without gross abnormality seen. IMPRESSION: Mildly echogenic kidneys suggesting underlying medical renal disease. Benign-appearing cyst left kidney 4.7 x 4.5 cm.
[2017-11-12 19:37] LABS: Potassium 5.1 mmol/L (3.5-5.1)
--- NOTE | 2017-11-12 21:23 | PN ---
Date of Progress Note: 11/12/2017 Chief Complaint: Acute kidney injury. History Of Present Illness: Acute kidney injury, moderately severe nonoliguric associated with hyperkalemia in setting of renal hypoperfusion and possible acute tubular necrosis. Renal function has not improved since yesterday. BUN is 49, creatinine is 2.9. Potassium level is ranging from 5.0-5.3. Potassium level slightly improved today from 5.3-5.0. There is no evidence of metabolic acidosis. Bicarbonate is 25. Review of Systems: The patient denies fever or chills. Denies chest pain. Physical Examination: Lungs: Diminished breath sounds at bases. Heart: S1, S2. Abdomen: Soft, benign. Extremities: Minimal peripheral edema. Laboratory Data: Sodium 141, potassium 5.3, chloride 108, CO2 of 25, BUN 49, creatinine 2.9, phosphorus 4.2, magnesium 2.0, calcium 8.7. Impression And Plan: Gpclr-me-gqmriic kidney injury. The patient has multiple medical problems. He presented to the hospital because of generalized weakness. He had a surgery for colon cancer. Ultrasound did not show obstructive uropathy. There is evidence of medical renal disease with ultrasound showing echogenic kidneys consistent with underlying medical renal disease. There is benign-appearing cyst of the left kidney 4.7 x 4.5 cm, right kidney is 10.5, and left kidney is 10.8. There is no hydronephrosis. The patient will continue IV fluids. The patient needs an IV fluids for hydration and plan is to continue normal saline and re-evaluate renal panel to check electrolytes and rule out persistent hyperkalemia. The patient received IV contrast for evaluation of colon cancer and subsequently he had Mucomyst and IV fluids in attempt to prevent contrast-induced nephropathy, although the patient has a high risk of contrast-induced nephropathy. The patient will continue IV fluids and plan is to re-evaluate renal panel daily as well as to monitor urine output. The patient has history of hypertension and plan is to monitor blood pressure. There is no evidence of hypotension at this point. Blood pressure is controlled. I spent total 36 min including 26 min to coordinate care plan. ROSA/TG Voice ID: [id number] Report ID: [id number] LORENA
[2017-11-13] MEDS: IPRATROPIUM BROM 0.5MG/2.5ML NEB SCH ×4 (02:54→20:00)
[2017-11-13] MEDS: NA CHLORIDE 0.9% 1,000 ML IV SCH (03:39)
[2017-11-13] MEDS: HYDROMORPHONE HCL 1 MG/ML INJ IV PRN ×5 (04:31→23:42)
[2017-11-13 05:55] LABS: Phosphorus 3.5 mg/dL (2.5-4.9); Potassium 4.9 mmol/L (3.5-5.1)
[2017-11-13 06:20] LABS: Absolute Lymphocytes (CBC) 0.7 K/uL (0.7-4.9); Absolute Monocytes 0.7 K/uL (0.1-1.3); Absolute Neutrophil 9.6 K/uL (1.8-8.0); Basophils % 0.3 % (0-1.3); Eosinophils % 0.1 % (0-4.4); Hematocrit 29.1 % (39.6-49.0); Lymphocytes % 6.5 % (15.3-44.8); MCH 20.3 pg (27.0-35.0); MCV 66.7 fL (80-100); Monocytes % 6.1 % (3.3-12.3); RBC Red Blood Cell Count 4.37 M/uL (4.33-5.43)
--- NOTE | 2017-11-13 08:39 | P.PN ---
Subjective Date of Service: 11/13/17 Primary Care Provider: Dr. Vela; Pulmonary-Dr. Starks Chief Complaint: Acute on chronic respiratory failure Subjective: Other (Patient doing well. Patient tolerating ice chips. Patient less confused today. Off BiPAP.) Physical Examination - Vital Signs Temperature: 97.8 F Blood Pressure: 134/75 Pulse: 123 Respirations: 18 Pulse Ox (%): 90 - Physical Exam General: Alert, In no apparent distress, Cooperative HEENT: Atraumatic Neck: Supple Respiratory: Diminished (Slightly diminished), Expiratory wheezes (Side but improved), Other (Poor inspiration and expiration) Cardiovascular: Irregular heart rate/rhythm (Atrial fibrillation, rate slightly elevated) Gastrointestinal: Hypoactive (Throughout), Soft and benign, No masses, No rebound, No guarding, Tenderness (No significant tenderness noted. Postop for changes noted.) Musculoskeletal: No erythema, No tenderness, No warmth Integumentary: No erythema, No warmth, No cyanosis Neurological: Normal speech, Normal strength at 5/5 x4 extr, Normal tone, Normal affect - Studies Laboratory Data (last 24 hrs) 11/13/17 05:15: Sodium 143, Potassium 4.9, BUN 58 H, Creatinine 2.40 H, Glucose 100, Phosphorus 3.5, Magnesium 2.0 11/13/17 05:15: WBC 11.1 H D, Hgb 8.9 L, Hct 29.1 L, Plt Count 159 11/12/17 18:43: Sodium 143, Potassium 5.1, BUN 52 H, Creatinine 2.60 H, Glucose 123 H Microbiology Data (last 24 hrs): 11/11/17 22:01 Blood - Blood Anaerobic Blood Culture - Final Medications List Reviewed: Yes Assessment & Plan Discharge Plan: Other (Skilled placement) Physician Review Additional Text: Impression: Colon cancer status post hemicolectomy. Shortness of breath likely COPD related with atelectasis and diaphragmatic dysfunction due to recent surgery. Possible on pneumonia to the right lower lobe noted CHF, diastolic dysfunction, chronic. COPD, mild exacerbation Atrial fibrillation on chronic anti coagulation therapy Hypertension Chronic renal disease, acute on chronic Hyperkalemia Anemia with history of iron deficiency Left renal cyst, 4 cm, benign Parkinson's Plan: Patient continues to be in ICU. Continue to wean off BiPAP. Patient currently on nasal cannula. Will maintain sats above 90%. Continue COPD medication. No IV steroids at this time are required. Encourage incentive spirometer. Diaphragmatic dysfunction likely related to recent surgery is making it difficult for him to adequately breathe but improved. Will order physical therapy to help ambulate. Patient on IV antibiotic therapy for possible right lower lobe pneumonia. Will recheck chest x-ray. Continue IV fluids, adjustments made it. Nephrology on the case due to acute on chronic renal failure. Renal ultrasound shows medical renal disease with left renal benign cyst. Patient with atrial fibrillation. Will continue with his prior medication. This includes anticoagulation therapy. Cardiology consulted to further assist. Patient started on IV iron due to anemia with iron deficiency. Patient with hypertension. Blood pressure better controlled, on metoprolol. Surgery to further evaluate. Possible advancement of diet within the next 1-2 days. Patient with Parkinson's. Will continue with his medication. Patient will likely require skilled placement. Will have social media assistant assess this in the next couple of days. Time Spent Managing Pts Care (In Minutes): 55
[2017-11-13] MEDS: METOPROLOL TAR 50 MG TAB PO SCH ×2 (08:42→17:16)
[2017-11-13] MEDS: RIVAROXABAN 15 MG TABLET PO SCH (08:42)
[2017-11-13] MEDS: Levofloxacin 250mg IV 250 MG/50 ML BAG IV SCH (08:42)
[2017-11-13] MEDS: CARBIDOPA/LEVODOPA 25/100 TAB PO SCH ×2 (08:42→20:30)
[2017-11-13 08:43] LABS: Urine White Blood Cell Casts OK
[2017-11-13] MEDS: ARFORMOTEROL TARTRATE 15 MCG/2 ML VIAL.NEB NEB SCH ×2 (08:43→20:00)
[2017-11-13] MEDS: PANTOPRAZOLE 40 MG INJ IVP SCH (08:43)
[2017-11-13] MEDS: SODIUM CHLORIDE 0.9% 10ML INJ IV PRN (08:43)
[2017-11-13 08:44] LABS: Anisocytosis 3+; Blood Morphology Comment NOTED (NOT SEEN); Hypochromasia 2+; Macrocytosis 2+; Ovalocytes 2+; Platelet Estimate ADEQ
[2017-11-13] MEDS: D5 0.45 NS 1,000 ML IV SCH ×2 (08:50→21:51)
[2017-11-13] MEDS: SOD FERRIC GLUC COMPLX/SUCROSE 125 MG in NA CHLORIDE 0.9% 100 ML IV SCH (08:50)
[2017-11-13] MEDS: DILTIAZEM HCL 180 MG SR CAP PO SCH (10:15)
--- NOTE | 2017-11-13 14:04 | RAD REPORT ---
EXAM DESCRIPTION: RAD - Chest Single View - 11/13/2017 1:34 pm CLINICAL HISTORY: COPD COMPARISON: November 11 TECHNIQUE: AP portable chest image was obtained 1322 hours . FINDINGS: Airspace opacification has developed throughout much of the right upper lobe. Patient has a baseline of chronic interstitial lung disease. There is patchy right lower lobe interstitial and al veolar opacification. Lung markings in the left lung field are increased. Trachea is midline. Cardiom ediastinal silhouette is not clearly different from comparison. No pneumothorax. Small right pleural effusion is likely present. No acute bone deformity seen. No acute aortic findings suspected. IMPRESSION: Moderately large right upper lobe pneumonia has developed since prior imaging. Suspected patchy right lower lobe pneumonia and small right pleural effusion. Overall prominence of the central lung markings could be interstitial infiltrate or edema.
[2017-11-14] MEDS: IPRATROPIUM BROM 0.5MG/2.5ML NEB SCH ×4 (01:27→20:17)
--- NOTE | 2017-11-14 02:01 | PN ---
Date of Progress Note: 11/13/2017 Chief Complaint: Acute kidney injury. History Of Present Illness: Acute kidney injury, moderately severe, nonoliguric , associated with hyperkalemia in setting of renal hypoperfusion and possible acute tubular necrosis and contrast induced nephropathy. Renal function has not improved since yesterday. BUN is ranging in 40s. Creatinine slightly improved over last 24 hours. Potassium level stabilized and there is no evidence of metabolic acidosis. Review of Systems: The patient denies fever or chills. Physical Examination: Lungs: Diminished breath sounds at bases. Abdomen: Diminished bowel sounds. Heart: S1, S2. Minimal edema. Laboratory Data: Hemoglobin 8.9, WBC 11.1, platelet count is 159,000. Chemistry showed sodium 143, potassium 4.9, chloride 113, CO2 24. BUN 58, creatinine 2.4, glucose 100, calcium 8.6, and phosphorus 3.5. Impression And Plan: 1. Acute kidney injury, nonoliguric, associated with hypovolemia, renal hypoperfusion and contrast induced nephropathy. The patient has multiple medical problems. He presented to the hospital because of generalized weakness. He had a surgery for colon cancer. Ultrasound did not show obstructive uropathy. There is no evidence of hydronephrosis. There is some pattern of medical renal disease. Echogenic kidneys suggesting underlying medical renal disease. There is benign appearing cyst in the left kidney. Right kidney size 10.5, left kidney 10.8. There is no hydronephrosis. The patient will continue IV fluids. Monitor urine output. The patient received IV contrast during this admission for abdominal condition related to colon cancer. Subsequently, Mucomyst was started to prevent contrast-induced nephropathy. 2. Continue IV fluids. Monitor urine output and fluid balance. 3. Hypertension. Blood pressure controlled. Monitor blood pressure closely. I spent total 36 min including 26 min to coordinate care plan. ROSA/TG Voice ID: [id number] Report ID: [id number] LORENA
[2017-11-14] MEDS: HYDROMORPHONE HCL 1 MG/ML INJ IV PRN ×2 (04:42→07:03)
[2017-11-14 05:48] LABS: Absolute Lymphocytes (CBC) 0.8 K/uL (0.7-4.9); Absolute Monocytes 0.9 K/uL (0.1-1.3); Absolute Neutrophil 8.5 K/uL (1.8-8.0); Basophils % 0.3 % (0-1.3); Eosinophils % 0.2 % (0-4.4); Hematocrit 27.8 % (39.6-49.0); MCH 20.5 pg (27.0-35.0); MCV 66.6 fL (80-100); MPV 8.8 fL (7.6-11.3); Monocytes % 8.9 % (3.3-12.3); Phosphorus 3.1 mg/dL (2.5-4.9); Potassium 4.7 mmol/L (3.5-5.1); RBC Red Blood Cell Count 4.17 M/uL (4.33-5.43)
--- NOTE | 2017-11-14 06:48 | RAD REPORT ---
EXAM DESCRIPTION: RAD - Chest Single View - 11/14/2017 6:39 am CLINICAL HISTORY: COPD, pneumonia follow-up COMPARISON: November 13 TECHNIQUE: AP portable chest image was obtained 0623 hours . FINDINGS: Right upper lobe consolidation has improved slightly but significant infiltrate remains. R ight base is not substantially different in the left perihilar and lung base markings are also seen a s stable. Cardiomediastinal silhouette is stable. No new or enlarging pleural effusion. Minimal right costophrenic angle blunting remains. IMPRESSION: Partial clearing of right upper lobe consolidation. Significant infiltrate remains. Remaining lung markings are prominent but stable.
[2017-11-14] MEDS: ARFORMOTEROL TARTRATE 15 MCG/2 ML VIAL.NEB NEB SCH ×2 (08:31→20:17)
[2017-11-14] MEDS: CARBIDOPA/LEVODOPA 25/100 TAB PO SCH ×2 (08:43→20:40)
[2017-11-14] MEDS: Levofloxacin 250mg IV 250 MG/50 ML BAG IV SCH (08:43)
[2017-11-14] MEDS: PANTOPRAZOLE 40 MG INJ IVP SCH (08:43)
[2017-11-14] MEDS: METOPROLOL TAR 50 MG TAB PO SCH ×2 (08:44→17:00)
[2017-11-14] MEDS: RIVAROXABAN 15 MG TABLET PO SCH (08:44)
[2017-11-14] MEDS: SODIUM CHLORIDE 0.9% 10ML INJ IV PRN (08:44)
[2017-11-14] MEDS ORDERED: NA CHLORIDE 0.9% 100 ML ONE (08:46)
--- NOTE | 2017-11-14 09:23 | P.PN ---
Subjective Date of Service: 11/14/17 Primary Care Provider: Dr. Vela; Pulmonary-Dr. Starks Chief Complaint: s/p Right Hemicolectomy for Colon Cancer Patient is oriented, states pain is stable, and tolerable, he has some shortness of breath at times, and is requesting water - no acute events. Physical Examination - Vital Signs Temperature: 99 F Blood Pressure: 122/79 Pulse: 118 Respirations: 23 Pulse Ox (%): 91 - Physical Exam General: Alert, Oriented x3, Other (oriented to person, place, time, event, current president. ) HEENT: Atraumatic, Other (membranes somewhat dry) Neck: Supple Respiratory: Diminished, Inspiratory wheezes Cardiovascular: Other (tachycardic) Gastrointestinal: Other (mild to moderate distention, mild appropriate tenderness globally, incision dressings not changed since surgery, however incision is clean and dry) Musculoskeletal: No clubbing, No swelling, No erythema, No tenderness, No warmth Neurological: Normal speech Urinary: Hall catheter - Studies Laboratory Data (last 24 hrs) 11/14/17 05:10: Sodium 144, Potassium 4.7, BUN 60 H, Creatinine 2.00 H, Glucose 122 H, Phosphorus 3.1, Magnesium 2.0 11/14/17 05:10: WBC 10.3, Hgb 8.5 L, Hct 27.8 L, Plt Count 192 D Microbiology Data (last 24 hrs): 11/11/17 19:44 Catheterized Urine [place] Count - Final 11/11/17 19:44 Catheterized Urine - Final 11/12/17 18:48 Sputum Gram Stain - Final Medications List Reviewed: Yes Assessment And Plan - Current Problems (Diagnosis) (1) Colon adenocarcinoma Onset Date: 11/11/17 Current Visit: Yes Status: Acute Plan: 82 year old man with colon cancer s/p right hemicolectomyPOD #4 Gen: pain controlled, however dilaudid seems to promote confusion, so will DC for now, start norco 7.5, and morphine for breakthrough pain CVS: tachycardia likely multifactorial including SIRS, post operative pain, Pulm: respiratory insufficiency - daily chest xray, aggressive pulmonary toilet , incentive spirometry Q15 min, nebs, chest PT, sit up in chair, cough and deep breating GI: abdomen mild distention, mild appropriate tenderness post op, incision clean and dry, will continue serial exams, abdominal binder Renal: renal insufficiency, continue plan with hydro pneumatic tester, will DC hall soon ID: continue antibiotics levaquin for now, leukocytosis improved, neutrophils remain elevated FEN: continue IV hydration @ 75cc/hr, electrolyte replacement protocol, nutrition: will start clear liquids today Endo: continue insulin sliding scale Prophylaxis: patent restarted on xeralto, SCDs in place PT: physcial therapy to assist with OOB to chair Placement: the patient will require SNF vs rehab, will discuss with family and patient, they do not currently want this option, but we will revisit discussion keep in ICU today Physician Review Additional Text: Impression: Colon cancer status post hemicolectomy. Shortness of breath likely COPD related with atelectasis and diaphragmatic dysfunction due to recent surgery. Possible on pneumonia to the right lower lobe noted CHF, diastolic dysfunction, chronic. COPD, mild exacerbation Atrial fibrillation on chronic anti coagulation therapy Hypertension Chronic renal disease, acute on chronic Hyperkalemia Anemia with history of iron deficiency Left renal cyst, 4 cm, benign Parkinson's Plan: Patient continues to be in ICU. Continue to wean off BiPAP. Patient currently on nasal cannula. Will maintain sats above 90%. Continue COPD medication. No IV steroids at this time are required. Encourage incentive spirometer. Diaphragmatic dysfunction likely related to recent surgery is making it difficult for him to adequately breathe but improved. Will order physical therapy to help ambulate. Patient on IV antibiotic therapy for possible right lower lobe pneumonia. Will recheck chest x-ray. Continue IV fluids, adjustments made it. Nephrology on the case due to acute on chronic renal failure. Renal ultrasound shows medical renal disease with left renal benign cyst. Patient with atrial fibrillation. Will continue with his prior medication. This includes anticoagulation therapy. Cardiology consulted to further assist. Patient started on IV iron due to anemia with iron deficiency. Patient with hypertension. Blood pressure better controlled, on metoprolol. Surgery to further evaluate. Possible advancement of diet within the next 1-2 days. Patient with Parkinson's. Will continue with his medication. Patient will likely require skilled placement. Will have social media developer assess this in the next couple of days.
[2017-11-14] MEDS: SOD FERRIC GLUC COMPLX/SUCROSE 125 MG in NA CHLORIDE 0.9% 100 ML IV SCH (09:51)
[2017-11-14] MEDS: HYDROCODONE/APAP 7.5/325 MG TAB PO PRN ×2 (11:20→17:54)
[2017-11-14] MEDS: DILTIAZEM HCL 180 MG SR CAP PO SCH (11:20)
--- NOTE | 2017-11-14 11:28 | P.PN ---
Subjective Date of Service: 11/14/17 Primary Care Provider: Dr. Vela; Pulmonary-Dr. Starks Chief Complaint: s/p Right Hemicolectomy for Colon Cancer Subjective: Other (Slow improvement noted. Hypoxia noted when he takes off his nasal cannula. Patient tolerating ice chips.) Physical Examination - Vital Signs Temperature: 99 F Blood Pressure: 138/75 Pulse: 95 Respirations: 23 Pulse Ox (%): 91 - Physical Exam General: Alert, In no apparent distress, Cooperative HEENT: Atraumatic Neck: Supple Respiratory: Diminished (To the right side), Other (Good aeration improved) Cardiovascular: Irregular heart rate/rhythm (Atrial fibrillation, rate slightly elevated) Gastrointestinal: Soft and benign, Non-distended (No significant distension noted.), No tenderness, Other (Post operative changes noted) Musculoskeletal: No erythema, No tenderness, No warmth Integumentary: No tenderness/swelling, No erythema, No warmth, No cyanosis Neurological: Normal speech, Normal strength at 5/5 x4 extr, Normal tone, Normal affect - Studies Laboratory Data (last 24 hrs) 11/14/17 05:10: Sodium 144, Potassium 4.7, BUN 60 H, Creatinine 2.00 H, Glucose 122 H, Phosphorus 3.1, Magnesium 2.0 11/14/17 05:10: WBC 10.3, Hgb 8.5 L, Hct 27.8 L, Plt Count 192 D Microbiology Data (last 24 hrs): 11/12/17 18:48 Sputum Gram Stain - Final 11/11/17 19:44 Catheterized Urine [place] Count - Final 11/11/17 19:44 Catheterized Urine - Final Medications List Reviewed: Yes Assessment & Plan Discharge Plan: Other (Skilled placement) Plan to discharge in: Greater than 2 days Physician Review Additional Text: Impression: Colon cancer status post hemicolectomy. Shortness of breath likely COPD related with atelectasis and diaphragmatic dysfunction due to recent surgery. Possible on pneumonia to the right lower lobe noted CHF, diastolic dysfunction, chronic. COPD, mild exacerbation Atrial fibrillation on chronic anti coagulation therapy Hypertension Chronic renal disease, acute on chronic Hyperkalemia, resolved Anemia with history of iron deficiency currently on IV iron Left renal cyst, 4 cm, benign Parkinson's disease Plan: Patient continues to be in ICU status post elective hemicolectomy for colon cancer. Case discussed at length with surgery. Patient continues with IV chips. Diet will be slowly advanced. If this is not improved patient may require CT scan to further assess. Patient may require skilled placement in the near future at discharge. This we further discussed with surgery. Patient has been adamant about going home with home health/physical therapy. Surgery to further address. Shortness of breath improved likely secondary to COPD exacerbation with atelectasis, right upper lobe pneumonia, and diaphragmatic dysfunction due to recent surgery. Patient continues to have hypoxia whenever he takes off his oxygen. He is encouraged to use incentive spirometer. Will wean off oxygen over time. Patient with atrial fibrillation on chronic anti coagulation therapy. Patient continues to be on his prior medications including his anti coagulation therapy. Spoke with cardiology. No further intervention required. Patient continues with hypertensive medication. Will continue monitor and adjust appropriately. Patient with acute on chronic renal disease. Renal function improved. Will continue monitor closely. Nephrology on the case. Continue with IV fluids. Anemia with history of iron deficiency anemia. Patient on IV iron. Will continue monitor hemoglobin closely since the patient is on chronic anti coagulation therapy. If hemoglobin less than 7 patient may require transfusion. So far blood, urine and sputum cultures negative. Improvement of electrolytes noted. I will turn the service over to Dr. Vela tomorrow. I will go over the plan of care with her. Time Spent Managing Pts Care (In Minutes): 55
[2017-11-14] MEDS: D5 0.45 NS 1,000 ML IV SCH ×2 (12:51→14:00)
--- NOTE | 2017-11-14 16:02 | PN ---
Date of Progress Note: 11/14/2017 Subjective: I was consulted on Mr. Jaquez because of atrial fibrillation, status post partial enrique ctomy. Yesterday when I saw him, he was on Cardizem. He was on metoprolol at home. He is on Xarelt o for his atrial fibrillation. Today his blood pressure is adequate. He has no cardiac symptoms. R emains in chronic atrial fibrillation, but his rate is in the 80s. He is uncomfortable in general be cause of aches and pain. He is not taking p.o. as far as food is concerned, but he is starting on ic e chips. He has some positive bowel sounds. No rales. No edema. I would continue his present jeremías men. I will sign off his case and be available for questions. ALBINO/TG Voice ID: [id number] Report ID: [id number]
--- NOTE | 2017-11-14 16:08 | CON ---
History Of Present Illness: The patient was initially admitted on 11/10/[address] Conway and Dr. Kayce pereyra service for a partial colectomy for adenocarcinoma of the colon. He underwent the surgery wel l. He was transferred to the ICU because of pneumonia on chest x-ray, altered mental status and I wa s asked to see him. No cardiac complaint as far as Mr. Jaquez is concerned, but he was in atrial f ibrillation with rapid ventricular response, which is chronic for him. Past Medical History: Includes hypertension, atrial fibrillation, chronic kidney disease, COPD, park insonism, gastroesophageal reflux disease, and colon cancer status post recent colectomy. Allergies: NONE. Review of Systems: Negative. Social History: Negative. Family History: Negative. Medications: Include Trental, Toprol, losartan, diltiazem, Xarelto, Pulmicort, prednisone. Physical Examination: General: He was lethargic, but responsive. No complaints. Atrial fibrillation at rate of 100, afeb rile, normal blood pressure. HEENT: Negative. Neck: Supple without any bruit, lymphadenopathy, JVD, or thyromegaly. Chest: Clear to auscultation and percussion. Cardiac: Revealed a regular rhythm and rate without any murmurs, gallops, or rubs. Abdomen: Benign. Extremities: Revealed no clubbing, cyanosis, or edema. Diagnostic Data: As stated earlier. Echocardiogram in July of 2017 was normal. Impression And Plan: 1.Chronic atrial fibrillation, on Xarelto, Toprol, and diltiazem. Rate is high because of his pneum onia. No changes in therapy. Continue the present regimen including the Xarelto. 2.Peripheral vascular disease, on Trental. 3.Hypertension, on losartan, well controlled. 4.Chronic obstructive pulmonary disease, on Pulmicort and prednisone. 5.Parkinsonism. 6.Gastroesophageal reflux disease. 7.Chronic obstructive pulmonary disease. 8.Pneumonia. 9.Recent colon surgery, colectomy by Dr. Abarca that is successful. I will continue present regime n and gently hydrate. No need to repeat any cardiac workup. We will follow him along. ALBINO/TG Voice ID: [id number] Report ID: [id number]
[2017-11-15] MEDS: IPRATROPIUM BROM 0.5MG/2.5ML NEB SCH ×4 (02:02→20:30)
--- NOTE | 2017-11-15 04:54 | PN ---
Date of Progress Note: 11/14/2017 Chief Complaint: Acute kidney injury. History Of Present Illness: Acute kidney injury, moderately severe, nonoliguric , associated with hyperkalemia in setting of renal hypoperfusion and possible acute tubular necrosis and contrast induced nephropathy. Renal function has improved somewhat since yesterday. The patient has nonoliguric urine output. The patient is on IV fluids. BUN was up to 58 and creatinine 2.4. Potassium level has improved and there is no evidence of significant metabolic acidosis. Review of Systems: Denies fever, chills. Physical Examination: Lungs: Diminished breath sound at bases. Heart: S1, S2. Abdomen: Soft. Diminished bowel sounds. Extremities: Minimal edema. Laboratory Data: Hemoglobin 8.5, WBC 10.3, platelet count 192,000. Sodium 144 , potassium 4.7, chloride 111, CO2 26, BUN 60, creatinine 2.0, glucose 122, calcium 8.6, phosphorus 3.1, magnesium 2.0. Impression And Plan: 1. Acute kidney injury, nonoliguric. There is persistent hyperazotemia with high BUN and creatinine ratio. Continue IV fluids. The patient will continue mild hydration and monitor for any evidence of congestive heart failure. 2. The patient has chronic kidney disease, stage 3. Renal ultrasound did not show obstructive uropathy. There is a pattern of hyperechogenic kidneys suggestive of underlying medical renal disease. Monitor for any evidence of proteinuria and screen for monoclonal gammopathy of unknown significance. The patient does not have obstructive uropathy. There is no hydronephrosis. 3. Hypertension. Blood pressure controlled. Continue to monitor and adjust medication as needed. i spent total 36 min including 26 min to coordinate care plan. ROSA/TG Voice ID: [id number] Report ID: [id number] LORENA
[2017-11-15 05:07] LABS: Absolute Lymphocytes (CBC) 1.2 K/uL (0.7-4.9); Absolute Monocytes 1.1 K/uL (0.1-1.3); Absolute Neutrophil 8.1 K/uL (1.8-8.0); Basophils % 0.5 % (0-1.3); Eosinophils % 0.8 % (0-4.4); Hematocrit 29.5 % (39.6-49.0); Lymphocytes % 11.2 % (15.3-44.8); MCH 20.4 pg (27.0-35.0); Monocytes % 10.5 % (3.3-12.3); RBC Red Blood Cell Count 4.41 M/uL (4.33-5.43)
[2017-11-15 05:09] LABS: MCV 66.8 fL (80-100)
[2017-11-15 05:25] LABS: Magnesium 2.1 mg/dL (1.8-2.4); Phosphorus 2.3 mg/dL (2.5-4.9); Potassium 4.4 mmol/L (3.5-5.1)
[2017-11-15] MEDS: DILTIAZEM HCL 180 MG SR CAP PO SCH (05:46)
[2017-11-15] MEDS: ARFORMOTEROL TARTRATE 15 MCG/2 ML VIAL.NEB NEB SCH ×2 (08:00→20:30)
[2017-11-15] MEDS: METOPROLOL TAR 50 MG TAB PO SCH ×2 (08:11→17:00)
[2017-11-15] MEDS: CARBIDOPA/LEVODOPA 25/100 TAB PO SCH ×2 (08:11→20:14)
[2017-11-15] MEDS: D5 0.45 NS 1,000 ML IV SCH (08:13)
[2017-11-15] MEDS: Levofloxacin 250mg IV 250 MG/50 ML BAG IV SCH (08:13)
[2017-11-15] MEDS: PANTOPRAZOLE 40 MG INJ IVP SCH (08:14)
[2017-11-15] MEDS: HYDROCODONE/APAP 7.5/325 MG TAB PO PRN (08:32)
--- NOTE | 2017-11-15 08:37 | P.PN ---
Subjective Date of Service: 11/15/17 Primary Care Provider: Dr. Vela; Pulmonary-Dr. Starks Chief Complaint: Hypoxemia COPD Patient's condition is stable he still have episodes of desats on minimal exertion patient has a history of terminal COPD Review of Systems General: Weakness Respiratory: Shortness of Breath Physical Examination - Vital Signs Temperature: 97.2 F Blood Pressure: 156/93 Pulse: 136 Respirations: 22 Pulse Ox (%): 97 - Physical Exam General: Alert, Cooperative Respiratory: Clear to auscultation bilaterally, Diminished, Expiratory wheezes Cardiovascular: No edema, Regular rate/rhythm - Studies Laboratory Data (last 24 hrs) 11/15/17 04:46: Sodium 142, Potassium 4.4, BUN 46 H, Creatinine 1.80 H, Glucose 106, Phosphorus 2.3 L, Magnesium 2.1 11/15/17 04:46: WBC 10.5, Hgb 9.0 L, Hct 29.5 L, Plt Count 213 Microbiology Data (last 24 hrs): 11/12/17 18:48 Sputum Gram Stain - Final 11/11/17 19:44 Catheterized Urine [place] Count - Final 11/11/17 19:44 Catheterized Urine - Final Medications List Reviewed: Yes Assessment & Plan - Problems (Diagnosis) (1) COPD exacerbation Onset Date: 11/05/16 Current Visit: No Status: Acute Plan: Patient is status post partial colectomy still hypoxic has severe COPD continue with bronchodilators try BiPAP renal function is improving medication list reviewed patient is receiving IV iron transfusion 92% on 5 L Physician Review Additional Text: Impression: Colon cancer status post hemicolectomy. Shortness of breath likely COPD related with atelectasis and diaphragmatic dysfunction due to recent surgery. Possible on pneumonia to the right lower lobe noted CHF, diastolic dysfunction, chronic. COPD, mild exacerbation Atrial fibrillation on chronic anti coagulation therapy Hypertension Chronic renal disease, acute on chronic Hyperkalemia, resolved Anemia with history of iron deficiency currently on IV iron Left renal cyst, 4 cm, benign Parkinson's disease Plan: Patient continues to be in ICU status post elective hemicolectomy for colon cancer. Case discussed at length with surgery. Patient continues with IV chips. Diet will be slowly advanced. If this is not improved patient may require CT scan to further assess. Patient may require skilled placement in the near future at discharge. This we further discussed with surgery. Patient has been adamant about going home with home health/physical therapy. Surgery to further address. Shortness of breath improved likely secondary to COPD exacerbation with atelectasis, right upper lobe pneumonia, and diaphragmatic dysfunction due to recent surgery. Patient continues to have hypoxia whenever he takes off his oxygen. He is encouraged to use incentive spirometer. Will wean off oxygen over time. Patient with atrial fibrillation on chronic anti coagulation therapy. Patient continues to be on his prior medications including his anti coagulation therapy. Spoke with cardiology. No further intervention required. Patient continues with hypertensive medication. Will continue monitor and adjust appropriately. Patient with acute on chronic renal disease. Renal function improved. Will continue monitor closely. Nephrology on the case. Continue with IV fluids. Anemia with history of iron deficiency anemia. Patient on IV iron. Will continue monitor hemoglobin closely since the patient is on chronic anti coagulation therapy. If hemoglobin less than 7 patient may require transfusion. So far blood, urine and sputum cultures negative. Improvement of electrolytes noted. I will turn the service over to Dr. Vela tomorrow. I will go over the plan of care with her.
--- NOTE | 2017-11-15 08:45 | P.PN ---
Subjective Date of Service: 11/15/17 Primary Care Provider: Dr. Vela; Pulmonary-Dr. Starks Chief Complaint: Hypoxemia COPD Patient is oriented, states pain is stable, and tolerable, he has some shortness of breath at times, no gas, no BM, no nausea, no emesis since surgery - no acute events. Physical Examination - Vital Signs Temperature: 97.2 F Blood Pressure: 156/93 Pulse: 136 Respirations: 22 Pulse Ox (%): 97 - Physical Exam General: Alert, In no apparent distress, Oriented x3, Cooperative HEENT: Mucous membr. moist/pink Respiratory: Diminished, Other (IS ~1000cc) Cardiovascular: No edema Gastrointestinal: Other (soft, mild serous discharge from inferior pole of incision, mild appropriate TTP, less distended, but remains mildly distended) Neurological: Normal speech - Studies Laboratory Data (last 24 hrs) 11/15/17 04:46: Sodium 142, Potassium 4.4, BUN 46 H, Creatinine 1.80 H, Glucose 106, Phosphorus 2.3 L, Magnesium 2.1 11/15/17 04:46: WBC 10.5, Hgb 9.0 L, Hct 29.5 L, Plt Count 213 Microbiology Data (last 24 hrs): 11/12/17 18:48 Sputum Gram Stain - Final 11/11/17 19:44 Catheterized Urine [place] Count - Final 11/11/17 19:44 Catheterized Urine - Final Medications List Reviewed: Yes Assessment And Plan - Current Problems (Diagnosis) (1) Colon adenocarcinoma Onset Date: 11/11/17 Current Visit: Yes Status: Acute Plan: 82 year old man with colon cancer s/p right hemicolectomyPOD #4 Gen: pain controlled, however dilaudid seems to promote confusion, so will continue norco 7.5, and morphine for breakthrough pain CVS: tachycardia likely multifactorial including SIRS, post operative pain, intermittent hypoxemia Pulm: respiratory insufficiency - daily chest xray, aggressive pulmonary toilet , incentive spirometry Q15 min, nebs, chest PT, sit up in chair, cough and deep breating GI: abdomen mild distention, mild appropriate tenderness post op, incision clean with minimal serous drainage, will continue serial exams, abdominal binder Renal: renal insufficiency, continue plan with 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, will FRANCA hall today ID: continue antibiotics levaquin for now, leukocytosis improved, neutrophils remain elevated FEN: continue IV hydration @ 75cc/hr, electrolyte replacement protocol, nutrition: continue clear liquids today Endo: continue insulin sliding scale Prophylaxis: patent restarted on xeralto, SCDs in place PT: physcial therapy to assist with OOB to chair Placement: the patient will require SNF vs rehab, will discuss with family and patient, they do not currently want this option, but we will revisit discussion keep in ICU today Physician Review Additional Text: Impression: Colon cancer status post hemicolectomy. Shortness of breath likely COPD related with atelectasis and diaphragmatic dysfunction due to recent surgery. Possible on pneumonia to the right lower lobe noted CHF, diastolic dysfunction, chronic. COPD, mild exacerbation Atrial fibrillation on chronic anti coagulation therapy Hypertension Chronic renal disease, acute on chronic Hyperkalemia, resolved Anemia with history of iron deficiency currently on IV iron Left renal cyst, 4 cm, benign Parkinson's disease Plan: Patient continues to be in ICU status post elective hemicolectomy for colon cancer. Case discussed at length with surgery. Patient continues with IV chips. Diet will be slowly advanced. If this is not improved patient may require CT scan to further assess. Patient may require skilled placement in the near future at discharge. This we further discussed with surgery. Patient has been adamant about going home with home health/physical therapy. Surgery to further address. Shortness of breath improved likely secondary to COPD exacerbation with atelectasis, right upper lobe pneumonia, and diaphragmatic dysfunction due to recent surgery. Patient continues to have hypoxia whenever he takes off his oxygen. He is encouraged to use incentive spirometer. Will wean off oxygen over time. Patient with atrial fibrillation on chronic anti coagulation therapy. Patient continues to be on his prior medications including his anti coagulation therapy. Spoke with cardiology. No further intervention required. Patient continues with hypertensive medication. Will continue monitor and adjust appropriately. Patient with acute on chronic renal disease. Renal function improved. Will continue monitor closely. Nephrology on the case. Continue with IV fluids. Anemia with history of iron deficiency anemia. Patient on IV iron. Will continue monitor hemoglobin closely since the patient is on chronic anti coagulation therapy. If hemoglobin less than 7 patient may require transfusion. So far blood, urine and sputum cultures negative. Improvement of electrolytes noted. I will turn the service over to Dr. Vela tomorrow. I will go over the plan of care with her.
[2017-11-15] MEDS: SOD FERRIC GLUC COMPLX/SUCROSE 125 MG in NA CHLORIDE 0.9% 100 ML IV SCH (08:50)
--- NOTE | 2017-11-15 08:56 | RAD REPORT ---
EXAM DESCRIPTION: RAD - Chest Single View - 11/15/2017 6:34 am CLINICAL HISTORY: respiratory insufficiency Chest pain. COMPARISON: Chest Single View dated 11/14/2017; Chest Single View dated 11/13/2017; Chest Single View d ated 11/11/2017; Chest Single View dated 11/11/2017 FINDINGS: Portable technique limits examination quality. Bilateral pulmonary opacities are again noted, greater on the right, likely representing pneumonia an d appearing stable. The heart is mildly moderately enlarged. No displaced fractures. IMPRESSION: Stable chest since preceding day's examination.
[2017-11-15] MEDS ORDERED: FUROSEMIDE 40 MG/4 ML VIAL IV ONE (10:04)
[2017-11-15] MEDS: DEXTROSE 10%-WATER 500 ML IV SCH (10:15)
--- NOTE | 2017-11-15 15:10 | RAD REPORT ---
EXAM DESCRIPTION: CT - Abdomen Pelvis Wo Contrast - 11/15/2017 2:32 pm CLINICAL HISTORY: Abdominal pain status post recent hemicolectomy COMPARISON: October 13, 2017 TECHNIQUE: Computed axial tomography of the abdomen and pelvis was obtained. IV and oral contrast we re not requested. All CT scans are performed using dose optimization technique as appropriate and may include automated exposure control or mA/KV adjustment according to patient size. FINDINGS: The evaluation of solid organs, vessels and bowel is limited secondary to the lack of con trast administration. Postsurgical changes of a right hemicolectomy are present. A moderate amount of stool is present with in proximal transverse colon. The bowel caliber and wall thickness is normal. An intra-abdominal abscess is not noted. Small to moderate right and small left pleural effusions are present. Diffuse edema is present within the subcutaneous tissues laterally. An incisional hernia/dehiscence is present within the upper pelvis to the right of midline measuring 37 millimeters. It does not contain bowel. The liver, spleen, pancreas, and adrenals appear grossly normal. A left renal cyst is unchanged. A duodenal diverticulum is noted IMPRESSION: Small to moderate right and small left pleural effusions Incisional hernia/ dehiscence within the upper pelvis to the right of midline measuring 37 millimeter s
--- NOTE | 2017-11-15 15:32 | RAD REPORT ---
EXAM DESCRIPTION: RAD - Abdomen 1 View (KUB) - 11/15/2017 2:07 pm CLINICAL HISTORY: Abdominal pain. FINDINGS: Several small bowel loops are upper limits normal caliber. Air and stool are present withi n the colon. Prominent stool seen within the proximal transverse colon. Surgical nataliya overlie the abdomen and pelvis
--- NOTE | 2017-11-15 15:47 | PN ---
Date of Progress Note: 11/15/2017 Subjective: The patient seen and examined. Chart reviewed and case discussed with RN and Dr. Samira curtis as well as Dr. Starks. The patient continues to have pain. Does get short of breath with minima l exertion. Review of Systems: Negative except as above. Medications: List reviewed. Code Status: Full code. Physical Examination: Vital Signs: Temperature 97.2, heart rate 107, blood pressure 132/83, respirations 22, O2 saturation 96% on 5 L via nasal cannula. GENERAL: Awake, alert, oriented x3. Elderly male, ill-appearing. CV: S1 and S2. Sinus tachycardia. Peripheral pulses present. Respiratory: Diminished breath sounds. Some wheezing is heard. The patient is tachypneic, use of a ccessory muscles. Gastrointestinal: Abdomen is soft, nondistended. Incision site bandage clean, dry, and intact. Extremities: No clubbing, cyanosis, or edema. Neurologic: Nonfocal. Laboratory Data: Sodium 142, potassium 4.4, chloride 108, CO2 28, BUN 46, creatinine 1.8, glucose 10 6, calcium 8.6, phosphorus 2.3, magnesium 2.1. WBC 10.5, H and H 929.5, platelets 213, neutrophils 7 7%. Blood cultures, no growth to date. Sputum culture shows normal jammie. Urine culture shows no g rowth. Assessment And Plan: An 82-year-old male with: 1.Colon cancer, status post hemicolectomy. Spoke with Dr. Abarca. He does believe that the patien t has an ileus. We will continue with clear liquids for now. 2.Shortness of breath secondary to chronic obstructive pulmonary disease. Also related to some atel ectasis and diaphragmatic dysfunction due to recent surgery. Pneumonia showed up on right lower lobe imaging. We will continue with Levaquin and continue supplemental oxygen as needed. 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 We will add steroids. 4.Chronic diastolic heart failure, stable. Continue monitoring I's and O's. Fluid restriction. 5.Atrial fibrillation, chronic, on anticoagulation. 6.Essential hypertension, stable. 7.Cuebh-jw-mbrrlca kidney disease, stage 3. Creatinine is improved. 8.Hyperkalemia, corrected. 9.Anemia, iron deficiency, on IV iron. 10.Left renal cyst 4 cm, benign. 11.Parkinson disease. Plan: Continue monitoring in ICU setting. We will continue with PT evaluation and will possibly nee d home health with PT. Continue incentive spirometer. Wean off oxygen as tolerated. Appreciate Dr. Starks's input. We will continue to monitor closely. Monitor H and H. Cultures negative so far. /TG Voice ID: [id number] Report ID: [id number]
[2017-11-15] MEDS ORDERED: Ringers Lactate 1,000 ML IV ONE (16:06)
[2017-11-15] MEDS ORDERED: PROPOFOL 200 MG/20 ML VIAL IV ONE (16:07)
[2017-11-15] MEDS ORDERED: EPHEDRINE SULF 50 MG/10 ML SYR ONE (16:07)
[2017-11-15] MEDS ORDERED: CEFAZOLIN SODIUM 1 GM/VIAL ONE (16:24)
[2017-11-15] MEDS ORDERED: MORPHINE 10 MG/ML VIAL ONE (16:37)
[2017-11-15] MEDS: RIVAROXABAN 15 MG TABLET PO SCH (17:00)
--- NOTE | 2017-11-15 17:02 | P.OP ---
Preoperative diagnosis: Abdominal Fascial Dehiscence Postoperative diagnosis: Abdominal Fascial Dehiscence Primary procedure: Repair of Abdominal Fascial Dehiscence Anesthesia: GETA Estimated blood loss: <1cc Specimen: None Findings: suture in place, small facial defect with omentum packed Complications: None Drain(s): Nasogastric Transferred to: ICU Condition: Fair
[2017-11-15] MEDS ORDERED: IPRATROPIUM BROM 0.5MG/2.5ML ONE (17:32)
[2017-11-15] MEDS ORDERED: LEVALBUTEROL 1.25 MG/3 ML NEB ONE (17:32)
[2017-11-15] MEDS: MORPHINE 2 MG/ML SYR IV PRN ×2 (18:02→21:41)
[2017-11-15] MEDS: DOCUSATE NA 100 MG CAP PO SCH (20:14)
[2017-11-16] MEDS: DEXTROSE 10%-WATER 500 ML IV SCH ×2 (00:37→09:26)
[2017-11-16] MEDS: MORPHINE 2 MG/ML SYR IV PRN ×4 (01:11→20:14)
--- NOTE | 2017-11-16 01:32 | PN ---
Date of Progress Note: 11/15/2017 Subjective: The patient doing slightly better. The patient had good urine output. Physical Examination: Vital Signs: Blood pressure 125/68, pulse of 106. The patient had urine output of 1150. Chest: Clear to auscultation. Heart: S1, S2. Regular. Abdomen: Soft, nontender. Extremities: Trace edema. Laboratory Data: WBC 10.5, H and H 9/29.5. Sodium 142, potassium 4.4, bicarb 28, BUN 46, creatinine down to 1.8, calcium 8.6, phosphorus 2.3, magnesium 2.1. Chest x-ray, congestion bilateral. Current Medications: The patient on D5 half at 100, Brovana, IV iron, Xarelto, diltiazem 180, metopr olol 50 b.i.d., Plavix, breathing treatment, pantoprazole, morphine. Assessment And Plan: 1.Acute kidney injury secondary to prerenal, recovered, trending down. Currently look to me on the wet side. I am going to go ahead and discontinue D5 half and place the patient on D10 instead at 25 per hour. I am going to give the patient a single dose of Lasix, and we will follow up. 2.Hypertension, controlled, optimal. Continue current medication. 3.Edema secondary to IV fluid. We will discontinue D5 half and place the patient on D10 to avoid hy poglycemia. We will give the patient a single dose of Lasix. 4.Colon cancer status post hemicolectomy. We will follow up with surgery. 5.Chronic obstructive pulmonary disease. Continue current supportive care. CARISA Voice ID: [id number] Report ID: [id number]
[2017-11-16] MEDS: IPRATROPIUM BROM 0.5MG/2.5ML NEB SCH ×4 (01:35→19:44)
--- NOTE | 2017-11-16 03:42 | OP ---
Date of Procedure: 11/15/2017 Surgeon: Talon Abarca MD, Recent Hospital Course: The patient is an 82-year-old male who was admitted approximately 4 to 5 day s ago with history of colon cancer on the right side of his colon. He underwent an open right hemico lectomy at that time. His postop course was complicated by some coughing and respiratory insufficien cy, requiring BiPAP. He was transferred to the ICU the day after surgery for respiratory insufficien cy. He had vigorous coughing bouts and would frequently sit up and roll over in bed and developed so me abdominal pain. His hospital course overall was also complicated by some renal insufficiency, and he has a longstanding history of smoking, he actively continued to smoke up until his admission to [facility]. He was noted to have some increased fluid output on a drain yesterday for the first nguyen e. On the inferior pole of his incision, it was clear fluid and I came to his bedside that evening a nd examined the area, I removed a few sutures and palpated the inferior pole of the incision where th e fluid come from and did not note any fascial defect on the inferior pole of the incision. I did no t open his entire incision at this time. I packed a plain packing 0.5 inch into the inferior pole of the incision tracking superiorly. The next morning, I examined this area and had not soaked even a single 4x4 gauze as such he was doing well. He got up and mobilize once again today with physical th erapy and upon returning to bed in the sitting position, he was noted to have a splash of fluid once again, which was once again yellowish and had some slight salmon-colored tinge to it at this time, wh ich was slightly different from the previous exam as such I came to the bedside and found that he had some fluid in this area. I ordered a CAT scan and this CAT scan showed what I believe to be an abdo hernan fascial dehiscence likely due to some of his medical comorbidities as well as vigorous coughing and his somewhat difficult postoperative course. I felt that he likely developed abdominal fascia d ehiscence as such I discussed with the patient and his daughter and decided to go back to the operati ng room to have a look and ensure that his abdominal wall was intact. Preoperative Diagnosis: Abdominal fascial dehiscence. Postoperative Diagnosis: Abdominal fascial dehiscence. Procedure Performed: Primary repair was a repair of abdominal fascial dehiscence in the inferior emma e of the incision, it was less than 1 inch in size. Anesthesia: General endotracheal. Estimated Blood Loss: Less than 1 cc. Specimen: None. Findings: The suture was found to be in place. There was a small fascial defect with omentum packed into this. There was no abdominal contents other than the omentum visible upon removing nataliya at this time. There was no leakage of abdominal fluid at this time as well. Complications: None. Drains: No drains placed at this time. He was returned to the ICU in fair condition. Procedure In Detail: After informed consent was obtained, the patient brought to the operating room, prepped and draped in the usual sterile fashion. After adequate anesthesia was achieved, I removed the nataliya with a staple remover. I did note that he had inferior pole of the incision with fascial dehiscence. It was approximately 1.5 to 2 cm in size and had omentum plug within this. It was seal ed up at that time. However, because this appeared to have the defect, I opted to repair at this nguyen e. The previously placed #1 looped PDS was left intact. I tested this suture to ensure that it was still intact and did not have any breakages and it appeared to be intact throughout. It simply had p ulled through an area of the abdominal wall in the infraumbilical position. I, therefore, got additi onal #1 PDS and reinforced this suture at approximately the supraumbilical position all the way down to the entire length of the incision securing this. As I did this, I also placed an internal retenti on suture of 0 Vicryl in the area of fascial dehiscence to reinforce this area. There was no injury to the bowel appreciated. The omentum was packed in the area and this was protected throughout. The skin incision was copiously irrigated multiple times before and after closure and the skin was then closed with interrupted nataliya, placing Telfa vanda in between and a sterile dressing was placed ove r the top. The patient tolerated the procedure well without complication, transferred back to the [facility] in fair condition. All counts were correct at the end of the case. JOSIE/TG Voice ID: [id number] Report ID: [id number]
[2017-11-16 05:25] LABS: Phosphorus 2.3 mg/dL (2.5-4.9)
[2017-11-16] MEDS: DILTIAZEM HCL 180 MG SR CAP PO SCH (06:00)
[2017-11-16] MEDS: ARFORMOTEROL TARTRATE 15 MCG/2 ML VIAL.NEB NEB SCH ×2 (07:35→19:44)
--- NOTE | 2017-11-16 08:41 | RAD REPORT ---
EXAM DESCRIPTION: RAD - Chest Single View - 11/16/2017 6:56 am CLINICAL HISTORY: respiratory insufficiency Chest pain. COMPARISON: Abdomen 1 View (KUB) dated 11/15/2017; Chest Single View dated 11/15/2017; Chest Single Vi ew dated 11/14/2017; Chest Single View dated 11/13/2017 FINDINGS: Portable technique limits examination quality. Bilateral pulmonary opacities are again noted, slightly greater on the right, showing no real change since comparative study. Small right pleural effusion persists. The heart is upper limit normal in si ze. No displaced fractures.
[2017-11-16] MEDS: HYDROCODONE/APAP 7.5/325 MG TAB PO PRN (08:46)
[2017-11-16] MEDS: METOPROLOL TAR 50 MG TAB PO SCH ×2 (08:46→16:48)
[2017-11-16] MEDS: SOD FERRIC GLUC COMPLX/SUCROSE 125 MG in NA CHLORIDE 0.9% 100 ML IV SCH (08:46)
[2017-11-16] MEDS: DOCUSATE NA 100 MG CAP PO SCH ×2 (08:46→20:15)
[2017-11-16] MEDS: PANTOPRAZOLE 40 MG INJ IVP SCH (08:46)
[2017-11-16] MEDS: CARBIDOPA/LEVODOPA 25/100 TAB PO SCH ×2 (08:46→20:15)
[2017-11-16] MEDS ORDERED: METRONIDAZOLE 250mg IVPB 250 MG/50 ML BAG IV SCH (09:00)
[2017-11-16] MEDS ORDERED: Levofloxacin 250mg IV 250 MG/50 ML BAG IV SCH (09:00)
[2017-11-16] MEDS ORDERED: DIPHENHYDRAMINE 50 MG/ML VIAL IV PRN (09:00)
--- NOTE | 2017-11-16 09:05 | P.PN ---
Subjective Date of Service: 11/16/17 Primary Care Provider: Dr. Vela; Pulmonary-Dr. Starks Chief Complaint: Hypoxemia COPD Patient is oriented, states pain is stable, and tolerable, he has some shortness of breath at times, no gas, no BM, no nausea, no emesis since surgery - patient returned to OR yesterday for closure of facial dehiscence Physical Examination - Vital Signs Temperature: 98 F Blood Pressure: 148/75 Pulse: 110 Respirations: 19 Pulse Ox (%): 99 - Physical Exam General: Alert, In no apparent distress, Oriented x3, Cooperative Neck: Supple Respiratory: Diminished, Other (upper respiratory increased secretions) Cardiovascular: Other (tachycardia) Gastrointestinal: Hypoactive, Other (soft, remains minimally distended, dressings have minimal serous discharge, + appropriate moderate TTP, telfa vanda in place in incision) Musculoskeletal: No clubbing Integumentary: No rashes Neurological: Normal speech - Studies Laboratory Data (last 24 hrs) 11/16/17 04:48: Sodium 141, Potassium 4.0, BUN 35 H, Creatinine 1.50 H, Glucose 118 H, Phosphorus 2.3 L, Magnesium 2.0 Microbiology Data (last 24 hrs): 11/12/17 18:48 Sputum Gram Stain - Final 11/12/17 18:48 Sputum Culture & Sensitivity - Final Medications List Reviewed: Yes Assessment And Plan - Current Problems (Diagnosis) (1) Colon adenocarcinoma Onset Date: 11/11/17 Current Visit: Yes Status: Acute Plan: 82 year old man with colon cancer s/p right hemicolectomyPOD #4 Gen: pain controlled so will continue norco 7.5, and morphine Q2 for breakthrough pain CVS: tachycardia likely multifactorial including SIRS, post operative pain, intermittent hypoxemia Pulm: respiratory insufficiency - daily chest xray, aggressive pulmonary toilet , incentive spirometry Q15 min, nebs, chest PT, sit up in chair, cough and deep breathing, benadryl, NT suction GI: abdomen mild distention, mild appropriate tenderness post op, incision clean with minimal serous drainage, will continue serial exams, abdominal binder Renal: renal insufficiency, continue plan with stable hand, ID: continue antibiotics levaquin, flagyl for now since he returned to OR, but will DC soon, leukocytosis improved, FEN: continue IV hydration electrolyte replacement protocol, nutrition: continue clear liquids today Endo: continue insulin sliding scale Prophylaxis: patent restarted on xeralto, SCDs in place PT: physcial therapy to assist with OOB to chair Placement: the patient will require SNF vs rehab, will discuss with family and patient, they do not currently want this option, but we will revisit discussion keep in ICU today Physician Review Additional Text: Impression: Colon cancer status post hemicolectomy. Shortness of breath likely COPD related with atelectasis and diaphragmatic dysfunction due to recent surgery. Possible on pneumonia to the right lower lobe noted CHF, diastolic dysfunction, chronic. COPD, mild exacerbation Atrial fibrillation on chronic anti coagulation therapy Hypertension Chronic renal disease, acute on chronic Hyperkalemia, resolved Anemia with history of iron deficiency currently on IV iron Left renal cyst, 4 cm, benign Parkinson's disease Plan: Patient continues to be in ICU status post elective hemicolectomy for colon cancer. Case discussed at length with surgery. Patient continues with IV chips. Diet will be slowly advanced. If this is not improved patient may require CT scan to further assess. Patient may require skilled placement in the near future at discharge. This we further discussed with surgery. Patient has been adamant about going home with home health/physical therapy. Surgery to further address. Shortness of breath improved likely secondary to COPD exacerbation with atelectasis, right upper lobe pneumonia, and diaphragmatic dysfunction due to recent surgery. Patient continues to have hypoxia whenever he takes off his oxygen. He is encouraged to use incentive spirometer. Will wean off oxygen over time. Patient with atrial fibrillation on chronic anti coagulation therapy. Patient continues to be on his prior medications including his anti coagulation therapy. Spoke with cardiology. No further intervention required. Patient continues with hypertensive medication. Will continue monitor and adjust appropriately. Patient with acute on chronic renal disease. Renal function improved. Will continue monitor closely. Nephrology on the case. Continue with IV fluids. Anemia with history of iron deficiency anemia. Patient on IV iron. Will continue monitor hemoglobin closely since the patient is on chronic anti coagulation therapy. If hemoglobin less than 7 patient may require transfusion. So far blood, urine and sputum cultures negative. Improvement of electrolytes noted. I will turn the service over to Dr. Vela tomorrow. I will go over the plan of care with her.
[2017-11-16 09:44] LABS: Absolute Lymphocytes (CBC) 1.4 K/uL (0.7-4.9); Absolute Monocytes 1.3 K/uL (0.1-1.3); Absolute Neutrophil 9.8 K/uL (1.8-8.0); Basophils % 0.5 % (0-1.3); Eosinophils % 1.3 % (0-4.4); Hematocrit 30.9 % (39.6-49.0); Lymphocytes % 10.8 % (15.3-44.8); MCH 20.5 pg (27.0-35.0); MCV 67.6 fL (80-100); MPV 8.8 fL (7.6-11.3); Monocytes % 10.3 % (3.3-12.3); RBC Red Blood Cell Count 4.57 M/uL (4.33-5.43)
--- NOTE | 2017-11-16 12:14 | P.PN ---
Subjective Date of Service: 11/16/17 Primary Care Provider: Dr. Vela; Pulmonary-Dr. Starks Chief Complaint: Hypoxemia COPD Patient's condition is stable he did have a bone DE since yesterday and was taken to the OR he is alert responsive cooperative still wheezing patient still has desats Review of Systems Unremarkable Physical Examination - Vital Signs Temperature: 98 F Blood Pressure: 119/76 Pulse: 109 Respirations: 15 Pulse Ox (%): 96 - Physical Exam General: Alert, Oriented x3 Respiratory: Expiratory wheezes Cardiovascular: No edema, Irregular heart rate/rhythm - Studies Laboratory Data (last 24 hrs) 11/16/17 09:04: WBC 12.7 H D, Hgb 9.4 L, Hct 30.9 L, Plt Count 246 11/16/17 04:48: Sodium 141, Potassium 4.0, BUN 35 H, Creatinine 1.50 H, Glucose 118 H, Phosphorus 2.3 L, Magnesium 2.0 Microbiology Data (last 24 hrs): 11/12/17 18:48 Sputum Gram Stain - Final 11/12/17 18:48 Sputum Culture & Sensitivity - Final Medications List Reviewed: Yes Assessment & Plan - Problems (Diagnosis) (1) COPD exacerbation Onset Date: 11/05/16 Current Visit: No Status: Acute Plan: Patient is clinically stable although still wheezing saturations borderline at his baseline patient's hemoglobin is zinc least he still has mild microcytic anemia renal function is also improving stable to be transferred to the floor vital signs satisfactory Physician Review Additional Text: Impression: Colon cancer status post hemicolectomy. Shortness of breath likely COPD related with atelectasis and diaphragmatic dysfunction due to recent surgery. Possible on pneumonia to the right lower lobe noted CHF, diastolic dysfunction, chronic. COPD, mild exacerbation Atrial fibrillation on chronic anti coagulation therapy Hypertension Chronic renal disease, acute on chronic Hyperkalemia, resolved Anemia with history of iron deficiency currently on IV iron Left renal cyst, 4 cm, benign Parkinson's disease Plan: Patient continues to be in ICU status post elective hemicolectomy for colon cancer. Case discussed at length with surgery. Patient continues with IV chips. Diet will be slowly advanced. If this is not improved patient may require CT scan to further assess. Patient may require skilled placement in the near future at discharge. This we further discussed with surgery. Patient has been adamant about going home with home health/physical therapy. Surgery to further address. Shortness of breath improved likely secondary to COPD exacerbation with atelectasis, right upper lobe pneumonia, and diaphragmatic dysfunction due to recent surgery. Patient continues to have hypoxia whenever he takes off his oxygen. He is encouraged to use incentive spirometer. Will wean off oxygen over time. Patient with atrial fibrillation on chronic anti coagulation therapy. Patient continues to be on his prior medications including his anti coagulation therapy. Spoke with cardiology. No further intervention required. Patient continues with hypertensive medication. Will continue monitor and adjust appropriately. Patient with acute on chronic renal disease. Renal function improved. Will continue monitor closely. Nephrology on the case. Continue with IV fluids. Anemia with history of iron deficiency anemia. Patient on IV iron. Will continue monitor hemoglobin closely since the patient is on chronic anti coagulation therapy. If hemoglobin less than 7 patient may require transfusion. So far blood, urine and sputum cultures negative. Improvement of electrolytes noted. I will turn the service over to Dr. Vela tomorrow. I will go over the plan of care with her.
[2017-11-16] MEDS ORDERED: FUROSEMIDE 40 MG/4 ML VIAL IV ONE (12:30)
[2017-11-16] MEDS ORDERED: Levofloxacin 250mg IV 250 MG/50 ML BAG IV ONE (14:00)
[2017-11-16] MEDS ORDERED: Levofloxacin500mg IV 500 MG/100 ML BAG IV SCH (14:00)
[2017-11-16] MEDS: RIVAROXABAN 15 MG TABLET PO SCH (16:49)
[2017-11-16] MEDS: METRONIDAZOLE 500mg IVPB 500 MG/100 ML BAG IV SCH (16:49)
--- NOTE | 2017-11-16 17:08 | PN ---
Date of Progress Note: 11/16/2017 Subjective: The patient seen and examined. Chart reviewed and case discussed with Dr. Starks. Th e patient went back to the OR for fascial dehiscence. Tolerated procedure well, was confused somewha t afterwards, pulling at lines, however, calmed down and became less agitated. Review of Systems: Negative except as above. Medications: List reviewed. Objective: Vital Signs: Temperature 98, heart rate 109, blood pressure 119/76, respirations 15, O2 96% on 4 L via nasal cannula. General: Awake, alert, oriented x3. Some mild distress. Elderly male, ill-appearing. CV: S1 and S2. Irregularly irregular. Peripheral pulses present. Respiratory: Diminished breath sounds. Some mild wheezing. No stridor. The patient is slightly ta chypneic. Gastrointestinal: Abdomen is soft, mildly distended. Hypoactive bowel sounds. Incision site clean, dry, intact. Extremities: No clubbing, cyanosis, or edema. Neurologic: Nonfocal. Laboratory Data: Sodium 141, potassium 4, chloride 104, CO2 30, BUN 35, creatinine 1.5, glucose 118, calcium 8.4, phosphorus 2.3, magnesium 2. WBC 12.7, H and H 9.4, 30.9, platelets 246, neutrophils 7 7%. Chest x-ray personally reviewed, shows bilateral pulmonary opacities again noted, slightly great er on the right showing no real change since comparative study. Small right pleural effusion persist s. Heart upper limit normal size. No displaced fractures. Assessment And Plan: An 82-year-old male with: 1.Colon cancer status post hemicolectomy with fascial dehiscence. The patient went back to the OR y ester for closure. Tolerated procedure well. To be started on clear liquids as per Dr. Abarca. 2.Shortness of breath secondary to chronic obstructive pulmonary disease. The patient does have caitlyn e atelectasis and diaphragmatic dysfunction due to recent surgery. Chest x-ray does show pulmonary o pacities. Levaquin was discontinued by Pulmonology. Cultures negative to date. We will continue to monitor. Reassess need for antibiotics. 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 Continue breathing treat ments. 4.Chronic diastolic heart failure, stable. The patient does have some small effusions on x-ray. We will adjust IV fluids. 5.Chronic atrial fibrillation. Continue anticoagulation. 6.Essential hypertension. 7.Acute on chronic kidney disease stage 3, creatinine improving. 8.Iron deficiency anemia. Continue to monitor hemoglobin and hematocrit. 9.Left renal cyst, 4 cm, benign. 10.Parkinson disease. /TG Voice ID: [id number] Report ID: [id number]
--- NOTE | 2017-11-16 18:39 | PN ---
Date of Progress Note: 11/16/2017 Subjective: The patient had to be taken to the OR again for adhsive reliase The patient was started on clear liquid diet. Physical Examination: Vital Signs: Blood pressure 119/76, pulse of 109. Afebrile. Chest: Faint crackles in bilateral bases. Heart: S1, S2. Regular. Abdomen: Soft, nontender. Extremities: Trace edema. Laboratory Data: H and H 9.4/30.9. Sodium 141; potassium 4; bicarb 30; BUN 35 ; creatinine 1.5, continue to improve; GFR up to 45; calcium 8.4; phosphorus 2.3 ; magnesium of 2. Current Medications: The patient is on: 1. Levaquin 250 daily. 2. Flagyl 250 every 8 hours. 3. IV iron. 4. Metoprolol. 5. Diltiazem. 6. Zofran. 7. Pantoprazole. 8. D10 at 25 per hour. Assessment And Plan: 1. Acute kidney injury, recovered, still on the wet side. I going to go ahead and give the patient extra dose of Lasix and we will monitor. 2. Hypertension, controlled, optimal. 3. Status post abdominal surgery with colon cancer. I going to go ahead and increase his Levaquin to 500 and increase the Flagyl to adjust for kidney function and will follow up the patient post surgery as by the primary. CARISA Voice ID: [id number] Report ID: [id number] [facility]
[2017-11-16] MEDS: SODIUM CHLORIDE 0.9% 10ML INJ IV PRN (20:15)
[2017-11-17] MEDS: MORPHINE 2 MG/ML SYR IV PRN ×3 (00:06→14:45)
[2017-11-17] MEDS: METRONIDAZOLE 500mg IVPB 500 MG/100 ML BAG IV SCH ×3 (00:07→17:10)
[2017-11-17] MEDS: IPRATROPIUM BROM 0.5MG/2.5ML NEB SCH ×4 (01:41→19:51)
[2017-11-17] MEDS: HYDROCODONE/APAP 7.5/325 MG TAB PO PRN ×3 (01:48→20:16)
[2017-11-17] MEDS: DEXTROSE 10%-WATER 500 ML IV SCH ×2 (02:15→20:17)
[2017-11-17 05:33] LABS: Absolute Lymphocytes (CBC) 1.3 K/uL (0.7-4.9); Absolute Monocytes 0.8 K/uL (0.1-1.3); Absolute Neutrophil 8.3 K/uL (1.8-8.0); Basophils % 1.5 % (0-1.3); Eosinophils % 1.6 % (0-4.4); Hematocrit 30.3 % (39.6-49.0); Lymphocytes % 11.8 % (15.3-44.8); MCV 66.4 fL (80-100); MPV 8.7 fL (7.6-11.3); Monocytes % 7.6 % (3.3-12.3); RBC Red Blood Cell Count 4.56 M/uL (4.33-5.43)
[2017-11-17 05:38] LABS: Magnesium 1.6 mg/dL (1.8-2.4); Phosphorus 1.8 mg/dL (2.5-4.9); Potassium 3.5 mmol/L (3.5-5.1)
[2017-11-17] MEDS: DILTIAZEM HCL 180 MG SR CAP PO SCH (05:56)
[2017-11-17] MEDS: ARFORMOTEROL TARTRATE 15 MCG/2 ML VIAL.NEB NEB SCH ×2 (07:29→19:51)
--- NOTE | 2017-11-17 07:47 | RAD REPORT ---
EXAM DESCRIPTION: Betty Single View11/17/2017 6:08 am CLINICAL HISTORY: Shortness of breath COMPARISON: 11/16/2017 FINDINGS: No significant change has occurred in the small to moderate right and small left pleural effusions. No significant change has occurred in bilateral pulmonary opacities and cardiomegaly IMPRESSION: No significant change since prior exam
--- NOTE | 2017-11-17 08:15 | P.PN ---
Subjective Date of Service: 11/17/17 Primary Care Provider: Dr. Vela; Pulmonary-Dr. Starks Chief Complaint: Hypoxemia COPD Patient is oriented, states pain is stable, and tolerable, he has some shortness of breath at times, + gas, no BM, no nausea, no emesis since surgery Physical Examination - Vital Signs Temperature: 97.1 F Blood Pressure: 131/76 Pulse: 124 Respirations: 15 Pulse Ox (%): 94 - Physical Exam General: Alert, In no apparent distress, Cooperative Neck: Supple Respiratory: Diminished (improved) Cardiovascular: Other (tachycardia) Gastrointestinal: Other (soft, mild appropriate TTP, ND, incision clean and dry , dressings clean and dry) Integumentary: No rashes Neurological: Normal gait Urinary: Quinonez catheter - Studies Laboratory Data (last 24 hrs) 11/17/17 04:55: Sodium 139, Potassium 3.5, BUN 29 H, Creatinine 1.40 H, Glucose 108 H, Phosphorus 1.8 L, Magnesium 1.6 L 11/17/17 04:55: WBC 10.8 D, Hgb 9.6 L, Hct 30.3 L, Plt Count 233 11/16/17 09:04: WBC 12.7 H D, Hgb 9.4 L, Hct 30.9 L, Plt Count 246 Microbiology Data (last 24 hrs): 11/11/17 22:01 Blood - Blood Aerobic Blood Culture - Final No growth in 5 days. 11/11/17 22:01 Blood - Blood Anaerobic Blood Culture - Final Medications List Reviewed: Yes Assessment And Plan - Current Problems (Diagnosis) (1) Colon adenocarcinoma Onset Date: 11/11/17 Current Visit: Yes Status: Acute Plan: 82 year old man with colon cancer s/p right hemicolectomyPOD #5 Gen: pain controlled so will continue norco 7.5, and morphine Q2 for breakthrough pain CVS: tachycardia likely multifactorial including SIRS, post operative pain, intermittent hypoxemia Pulm: respiratory insufficiency - daily chest xray, aggressive pulmonary toilet , incentive spirometry Q15 min, nebs, chest PT, sit up in chair, cough and deep breathing, benadryl, NT suction GI: abdomen mild distention, mild appropriate tenderness post op, incision clean with minimal serous drainage, will continue serial exams, abdominal binder Renal: renal insufficiency, continue plan with bee tender, ID: dc antibiotics levaquin, flagyl for now since he returned to OR, but will DC soon, leukocytosis improved, FEN: continue IV hydration electrolyte replacement protocol, nutrition: full liquids today Endo: continue insulin sliding scale Prophylaxis: patent restarted on xeralto, SCDs in place PT: physcial therapy to assist with OOB to chair Placement: the patient will require SNF vs rehab, will discuss with family and patient, they do not currently want this option, but we will revisit discussion keep in ICU today Physician Review Additional Text: Impression: Colon cancer status post hemicolectomy. Shortness of breath likely COPD related with atelectasis and diaphragmatic dysfunction due to recent surgery. Possible on pneumonia to the right lower lobe noted CHF, diastolic dysfunction, chronic. COPD, mild exacerbation Atrial fibrillation on chronic anti coagulation therapy Hypertension Chronic renal disease, acute on chronic Hyperkalemia, resolved Anemia with history of iron deficiency currently on IV iron Left renal cyst, 4 cm, benign Parkinson's disease Plan: Patient continues to be in ICU status post elective hemicolectomy for colon cancer. Case discussed at length with surgery. Patient continues with IV chips. Diet will be slowly advanced. If this is not improved patient may require CT scan to further assess. Patient may require skilled placement in the near future at discharge. This we further discussed with surgery. Patient has been adamant about going home with home health/physical therapy. Surgery to further address. Shortness of breath improved likely secondary to COPD exacerbation with atelectasis, right upper lobe pneumonia, and diaphragmatic dysfunction due to recent surgery. Patient continues to have hypoxia whenever he takes off his oxygen. He is encouraged to use incentive spirometer. Will wean off oxygen over time. Patient with atrial fibrillation on chronic anti coagulation therapy. Patient continues to be on his prior medications including his anti coagulation therapy. Spoke with cardiology. No further intervention required. Patient continues with hypertensive medication. Will continue monitor and adjust appropriately. Patient with acute on chronic renal disease. Renal function improved. Will continue monitor closely. Nephrology on the case. Continue with IV fluids. Anemia with history of iron deficiency anemia. Patient on IV iron. Will continue monitor hemoglobin closely since the patient is on chronic anti coagulation therapy. If hemoglobin less than 7 patient may require transfusion. So far blood, urine and sputum cultures negative. Improvement of electrolytes noted. I will turn the service over to Dr. Vela tomorrow. I will go over the plan of care with her.
[2017-11-17] MEDS: DOCUSATE NA 100 MG CAP PO SCH ×2 (08:32→20:16)
[2017-11-17] MEDS: SODIUM CHLORIDE 0.9% 10ML INJ IV PRN (08:32)
[2017-11-17] MEDS: CARBIDOPA/LEVODOPA 25/100 TAB PO SCH ×2 (08:32→20:17)
[2017-11-17] MEDS: METOPROLOL TAR 50 MG TAB PO SCH ×2 (08:32→17:09)
[2017-11-17] MEDS: PANTOPRAZOLE 40 MG INJ IVP SCH (08:32)
[2017-11-17] MEDS: SOD FERRIC GLUC COMPLX/SUCROSE 125 MG in NA CHLORIDE 0.9% 100 ML IV SCH (09:40)
[2017-11-17] MEDS ORDERED: Magnesium Sulfate 2gm IVPB 2 G/50 ML BAG IV ONE (10:28)
[2017-11-17] MEDS: FUROSEMIDE 40 MG/4 ML VIAL IV SCH (10:34)
[2017-11-17] MEDS: KCL 20 MEQ/100 mL IVPB 20 MEQ/100 ML BAG IV SCH ×2 (12:09→14:46)
[2017-11-17] MEDS: Levofloxacin500mg IV 500 MG/100 ML BAG IV SCH (14:46)
[2017-11-17] MEDS: RIVAROXABAN 15 MG TABLET PO SCH (17:09)
--- NOTE | 2017-11-17 20:06 | PN ---
Date of Progress Note: 11/17/2017 History: The patient seen and examined, chart reviewed, and the case discussed with RN and Dr. Zoraida galeano. Review of Systems: Negative except as above. Medications: List reviewed. Physical Examination: Vital Signs: Temperature 97.1, heart rate 118, blood pressure 120/70, respirations 19, O2 92% on 2 L via nasal cannula. General: Awake, alert, oriented x3, not in any acute distress. Elderly male. CV: S1, S2. Irregularly irregular. Peripheral pulses present. Respiratory: Diminished breath sounds. Some mild wheezing, improving. Gastrointestinal: Abdomen is mildly distended. Tenderness to palpation on the incision site. Clean , dry, intact. No drainage. Extremities: No clubbing, cyanosis, edema. Neurologic: Nonfocal. Laboratory Data: Sodium 139, potassium 3.5, chloride 102, CO2 31, BUN 29, creatinine 1.4, glucose 10 8, calcium 8.6, phosphorus 1.8, magnesium 1.6. WBC 10.8, H and H 9.6, 30.3, platelets 233, neutrophi ls 77%. Cultures no growth to date. Chest x-ray, personally reviewed, shows no significant change s hugo previous. Does have small to moderate right and small left pleural effusions. No significant c hange in the bilateral pulmonary opacities and cardiomegaly. Assessment And Plan: An 82-year-old male with: 1.Colon cancer, status post hemicolectomy with fascial dehiscence, status post closure. The patient is doing well on tolerating liquid diet. 2.Shortness of breath due to his chronic obstructive pulmonary disease. 3.Pneumonia, bilateral pulmonary opacities. Continue IV antibiotics. Sputum cultures negative to d ate. 4.Bilateral pleural effusions. IV fluids have been adjusted. 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 We will continue nebuliz er treatments. Supplemental oxygen. 6.Chronic diastolic heart failure, stable. Continue with fluid restriction. Monitor I's and O's. 7.Chronic atrial fibrillation on anticoagulation and rate control. 8.Essential hypertension, stable. 9.Acute on chronic kidney disease, stage 3. Creatinine is improving. 10.Iron deficiency anemia. Hemoglobin and hematocrit are stable. We will continue to monitor. 11.Left renal cyst, 4 cm, benign. 12.Parkinson disease. Plan to likely step-down from ICU in a.luna VALLE/TG Voice ID: [id number] Report ID: [id number]
[2017-11-18] MEDS: MORPHINE 2 MG/ML SYR IV PRN ×2 (00:12→08:50)
[2017-11-18] MEDS: METRONIDAZOLE 500mg IVPB 500 MG/100 ML BAG IV SCH ×3 (00:20→16:42)
[2017-11-18] MEDS: IPRATROPIUM BROM 0.5MG/2.5ML NEB SCH ×4 (01:13→20:32)
--- NOTE | 2017-11-18 04:00 | PN ---
Date of Progress Note: 11/17/2017 Subjective: The patient doing better. The patient diuresed yesterday. Still on D10. Start liquid diet. Physical Examination: Vital Signs: Blood pressure 114/80, pulse of 93. Afebrile. The patient had good urine output of 3100. Chest: Crackles bilateral base with wheezing. Heart: S1, S2. Regular. Abdomen: Soft, nontender. Extremities: Trace edema. Laboratory Data: WBC 10.8, H and H 9.6/30.3, platelet 233. Sodium 139, potassium 3.5, bicarb 31, BUN 29, creatinine 1.4, calcium 8.6, phosphorus 1.8, magnesium 1.6. Current Medications: Levaquin 500, metronidazole 500 t.i.d., diphenhydramine, IV iron, diltiazem 180 daily, metoprolol 50 b.i.d., Lasix received dose yesterday, breathing treatment, Zofran. Assessment And Plan: 1. Acute kidney injury secondary to poor perfusion, acute tubular necrosis, slightly on the wet side. I can continue Lasix and we will place the patient on Lasix daily, and we will monitor the patient. 2. Hypokalemia, hypomagnesemia. We will continue supplement. 3. Colon CA status post surgery. We will follow up with Surgery. Continue D10. 4. Hypophosphatemia given the acute kidney injury. I am not going to supplement for today. CARISA Voice ID: [id number] Report ID: [id number] [facility] SYSTEMRob
[2017-11-18] MEDS: HYDROCODONE/APAP 7.5/325 MG TAB PO PRN ×2 (05:17→17:09)
[2017-11-18] MEDS: DILTIAZEM HCL 180 MG SR CAP PO SCH (06:00)
[2017-11-18] MEDS: ONDANSETRON 4 MG/2 ML VIAL IV PRN (07:40)
[2017-11-18] MEDS: ARFORMOTEROL TARTRATE 15 MCG/2 ML VIAL.NEB NEB SCH ×2 (08:15→20:32)
[2017-11-18] MEDS: DOCUSATE NA 100 MG CAP PO SCH ×2 (09:56→21:50)
[2017-11-18] MEDS: METOPROLOL TAR 50 MG TAB PO SCH ×2 (09:56→16:42)
[2017-11-18] MEDS: CARBIDOPA/LEVODOPA 25/100 TAB PO SCH ×2 (09:56→21:50)
[2017-11-18 09:57] LABS: Absolute Lymphocytes (CBC) 1.4 K/uL (0.7-4.9); Absolute Monocytes 0.8 K/uL (0.1-1.3); Absolute Neutrophil 7.8 K/uL (1.8-8.0); Basophils % 0.8 % (0-1.3); Eosinophils % 1.9 % (0-4.4); Hematocrit 32.4 % (39.6-49.0); Lymphocytes % 13.3 % (15.3-44.8); MCV 66.8 fL (80-100); Monocytes % 7.4 % (3.3-12.3); RBC Red Blood Cell Count 4.85 M/uL (4.33-5.43)
[2017-11-18] MEDS: FUROSEMIDE 40 MG/4 ML VIAL IV SCH (09:57)
[2017-11-18] MEDS: PANTOPRAZOLE 40 MG INJ IVP SCH (09:57)
[2017-11-18] MEDS: SOD FERRIC GLUC COMPLX/SUCROSE 125 MG in NA CHLORIDE 0.9% 100 ML IV SCH (10:00)
--- NOTE | 2017-11-18 10:44 | RAD REPORT ---
EXAM DESCRIPTION: Betty Single View11/18/2017 10:08 am CLINICAL HISTORY: Shortness of breath COMPARISON: November 17, 2017 FINDINGS: Small to moderate right and small left pleural effusions are unchanged. There probably is mild interstitial pulmonary edema. The heart is enlarged
[2017-11-18 11:18] LABS: Magnesium 1.9 mg/dL (1.8-2.4); Phosphorus 1.8 mg/dL (2.5-4.9); Potassium 3.6 mmol/L (3.5-5.1)
[2017-11-18] MEDS: DEXTROSE 10%-WATER 500 ML IV SCH (14:31)
[2017-11-18] MEDS: Levofloxacin500mg IV 500 MG/100 ML BAG IV SCH (14:32)
[2017-11-18] MEDS: RIVAROXABAN 15 MG TABLET PO SCH (16:43)
--- NOTE | 2017-11-18 20:58 | PN ---
Date of Progress Note: 11/18/2017 Subjective: The patient was seen and examined. Chart reviewed and case discussed with RN and Dr. Chong murphy. The patient is feeling significantly better. His breathing is improved, making good urine ou tput, able to tolerate his diet. Pain is well controlled. Review of Systems: Negative except as above. Medications: List reviewed. Physical Examination: Vital Signs: Temperature 97.6, heart rate 102, blood pressure 138/67, respirations 16, O2 94% on 2 L via nasal cannula. General: Awake, alert, oriented x3. He denied any acute distress. Elderly male, somewhat ill-appea ring. CV: S1, S2. Irregularly irregular. Peripheral pulses present. Respiratory: Diminished breath sounds, however, improving. Some mild wheezing. Gastrointestinal: Abdomen is mildly distended. Tenderness to palpation. Incision site clean, dry, intact. Extremities: No clubbing, cyanosis, and mild pedal edema. Neurologic: Nonfocal. Laboratory Data: Sodium 138, potassium 3.6, chloride 100, CO2 32, BUN 28, creatinine 1.4, glucose 11 7, calcium 8.6, phosphorus 1.8, magnesium 1.9. WBC 10.1, H and H 10.2 and 32.4, platelets 268, neutr ophils 76%. Blood cultures, no growth to date. Sputum culture shows normal jammie. Chest x-ray show s [id number] right and small left pleural effusions unchanged. Mild interstitial pulmonary ed antony. Heart enlarged. Assessment/plan: An 82-year-old male with: 1.Colon cancer status post hemicolectomy with fascial dehiscence, status post closure, recovering we ll, tolerating soft diet. 2.Shortness of breath due to chronic obstructive pulmonary disease. 3.Pneumonia, bilateral pulmonary opacities. Continue IV antibiotics. Sputum cultures negative. 4.Bilateral pleural effusion. Continue diuresis. Monitor I's and O's. 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 Continue nebulizer treat ments and supplemental oxygen. 6.Atrial fibrillation with rapid ventricular response, chronic, rate controlled. We will continue w ith medications and anticoagulation. 7.Chronic diastolic heart failure, stable. The patient does have some acuteness to his heart failur e after the surgery. We will continue to diurese and monitor I's and O's. 8.Essential hypertension, stable. 9.Acute on chronic kidney disease stage 3. Creatinine stable. Continue to monitor. 10.Iron deficiency anemia. H and H stable. 11.Left renal cyst 4 cm benign. 12.Parkinson disease. Plan: Step down from ICU if okay with Dr. Abarca. 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 /TG Voice ID: [id number] Report ID: [id number]
[2017-11-18] MEDS: SUPLENA IMPAIRED RENAL 237 ML CAN PO SCH (21:50)
--- NOTE | 2017-11-19 01:23 | PN ---
Date of Progress Note: 11/18/2017 Subjective: The patient is doing better. More awake today. Laboratory Data: WBC 10.1, H and H 10.2/32. Sodium 138, potassium 3.6, bicarb 32, BUN 28, and creat inine 1.4. Physical Examination: Vital Signs: Blood pressure of 116/72. Chest: Faint crackles in the bases. Heart: S1, S2. Regular. Abdomen: Soft, nontender with dressing. Extremities: Trace edema. Current Medications: The patient is on include; 1.Hydrocodone. 2.Diltiazem. 3.IV iron. 4.Lasix 40 daily. 5.Levaquin 500. 6.Metronidazole 500 b.i.d. 7.Pantoprazole. 8.Xarelto. Assessment And Plan: 1.Acute kidney injury secondary to prerenal superimposed with contrast, currently normal to wet side . I am going to continue the Lasix today. Hopefully, tomorrow, we can discontinue the Lasix and luma l monitor. I am going to go ahead and get a chest x-ray for tomorrow to evaluate his fluid status. 2.Hypertension, controlled, optimal. Continue current medication. 3.Anemia secondary to blood loss and iron-deficiency anemia. We will continue IV iron. Will follow up with the primary. 4.Colon cancer with adhesions, status post release of adhesions. We will follow up with the Surgery. 5.Hypokalemia. Continue supplement. CARISA Voice ID: [id number] Report ID: [id number]
[2017-11-19] MEDS: METRONIDAZOLE 500mg IVPB 500 MG/100 ML BAG IV SCH ×2 (01:26→09:00)
[2017-11-19] MEDS: HYDROCODONE/APAP 7.5/325 MG TAB PO PRN ×2 (01:48→16:50)
[2017-11-19] MEDS: IPRATROPIUM BROM 0.5MG/2.5ML NEB SCH ×4 (02:18→19:29)
[2017-11-19] MEDS: DILTIAZEM HCL 180 MG SR CAP PO SCH (05:33)
[2017-11-19 06:35] LABS: Absolute Lymphocytes (CBC) 1.1 K/uL (0.7-4.9); Absolute Monocytes 0.7 K/uL (0.1-1.3); Absolute Neutrophil 7.6 K/uL (1.8-8.0); Basophils % 1.3 % (0-1.3); Eosinophils % 2.2 % (0-4.4); Hematocrit 33.7 % (39.6-49.0); Lymphocytes % 11.3 % (15.3-44.8); MCH 21.1 pg (27.0-35.0); MCV 68.1 fL (80-100); MPV 8.7 fL (7.6-11.3); Monocytes % 6.8 % (3.3-12.3); RBC Red Blood Cell Count 4.95 M/uL (4.33-5.43)
[2017-11-19 06:51] LABS: Magnesium 1.8 mg/dL (1.8-2.4); Phosphorus 2.4 mg/dL (2.5-4.9); Potassium 3.5 mmol/L (3.5-5.1)
[2017-11-19 07:45] VITALS: BMI 23.4
[2017-11-19] MEDS: ARFORMOTEROL TARTRATE 15 MCG/2 ML VIAL.NEB NEB SCH ×2 (08:02→19:29)
--- NOTE | 2017-11-19 09:12 | P.PN ---
Subjective Date of Service: 11/19/17 Primary Care Provider: Dr. Vela; Pulmonary-Dr. Starks Chief Complaint: Hypoxemia COPD Subjective: Improving Patient is oriented, states pain improved, + gas, +BM, no nausea and emesis, ambulated, no acute events Physical Examination - Vital Signs Temperature: 97 F Blood Pressure: 120/80 Pulse: 102 Respirations: 20 Pulse Ox (%): 99 - Physical Exam General: Alert, In no apparent distress, Cooperative HEENT: Mucous membr. moist/pink Respiratory: Clear to auscultation bilaterally, Normal air movement Gastrointestinal: Other (soft, improved tenderness, minimal serous DC on dressings, wound packed, nataliya in place) - Studies Laboratory Data (last 24 hrs) 11/19/17 05:50: Sodium 139, Potassium 3.5, BUN 28 H, Creatinine 1.60 H, Glucose 122 H, Phosphorus 2.4 L, Magnesium 1.8 11/19/17 05:50: WBC 9.7, Hgb 10.5 L, Hct 33.7 L, Plt Count 281 11/18/17 05:36: Sodium 138, Potassium 3.6, BUN 28 H, Creatinine 1.40 H, Glucose 117 H, Phosphorus 1.8 L, Magnesium 1.9 11/18/17 05:36: WBC 10.1, Hgb 10.2 L, Hct 32.4 L, Plt Count 268 Medications List Reviewed: Yes Assessment And Plan - Current Problems (Diagnosis) (1) Colon adenocarcinoma Onset Date: 11/11/17 Current Visit: Yes Status: Acute Plan: 82 year old man with colon cancer s/p right hemicolectomyPOD #5 Gen: pain controlled so will continue norco 7.5, and morphine Q4 for breakthrough pain CVS: tachycardia improving, likely multifactorial including SIRS, post operative pain, intermittent hypoxemia Pulm: respiratory insufficiency improved - pulmonary toilet, incentive spirometry Q15 min, nebs, chest PT, sit up in chair, cough and deep breathing, benadryl prn , NT suction prn GI: abdomen mild appropriate tenderness post op, incision clean with minimal serous drainage, will continue serial exams, abdominal binder Renal: renal insufficiency, 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 Shortness of breath likely COPD related with atelectasis and diaphragmatic dysfunction due to recent surgery. Possible on pneumonia to the right lower lobe noted CHF, diastolic dysfunction, chronic. COPD, mild exacerbation Atrial fibrillation on chronic anti coagulation therapy Hypertension Chronic renal disease, acute on chronic Hyperkalemia, resolved Anemia with history of iron deficiency currently on IV iron Left renal cyst, 4 cm, benign Parkinson's disease Plan: Patient continues to be in ICU status post elective hemicolectomy for colon cancer. Case discussed at length with surgery. Patient continues with IV chips. Diet will be slowly advanced. If this is not improved patient may require CT scan to further assess. Patient may require skilled placement in the near future at discharge. This we further discussed with surgery. Patient has been adamant about going home with home health/physical therapy. Surgery to further address. Shortness of breath improved likely secondary to COPD exacerbation with atelectasis, right upper lobe pneumonia, and diaphragmatic dysfunction due to recent surgery. Patient continues to have hypoxia whenever he takes off his oxygen. He is encouraged to use incentive spirometer. Will wean off oxygen over time. Patient with atrial fibrillation on chronic anti coagulation therapy. Patient continues to be on his prior medications including his anti coagulation therapy. Spoke with cardiology. No further intervention required. Patient continues with hypertensive medication. Will continue monitor and adjust appropriately. Patient with acute on chronic renal disease. Renal function improved. Will continue monitor closely. Nephrology on the case. Continue with IV fluids. Anemia with history of iron deficiency anemia. Patient on IV iron. Will continue monitor hemoglobin closely since the patient is on chronic anti coagulation therapy. If hemoglobin less than 7 patient may require transfusion. So far blood, urine and sputum cultures negative. Improvement of electrolytes noted. I will turn the service over to Dr. Vela tomorrow. I will go over the plan of care with her.
[2017-11-19] MEDS ORDERED: MORPHINE 2 MG/ML SYR IV PRN (09:13)
[2017-11-19] MEDS: SOD FERRIC GLUC COMPLX/SUCROSE 125 MG in NA CHLORIDE 0.9% 100 ML IV SCH (09:33)
[2017-11-19] MEDS: DOCUSATE NA 100 MG CAP PO SCH ×2 (09:34→20:44)
[2017-11-19] MEDS: CARBIDOPA/LEVODOPA 25/100 TAB PO SCH ×2 (09:34→20:44)
[2017-11-19] MEDS: METOPROLOL TAR 50 MG TAB PO SCH ×2 (09:34→16:49)
[2017-11-19] MEDS: PANTOPRAZOLE 40 MG INJ IVP SCH (09:35)
[2017-11-19] MEDS: FUROSEMIDE 40 MG/4 ML VIAL IV SCH (09:35)
[2017-11-19] MEDS: SUPLENA IMPAIRED RENAL 237 ML CAN PO SCH ×2 (09:35→20:44)
--- NOTE | 2017-11-19 11:44 | PN ---
Date of Progress Note: 11/19/2017 Subjective: The patient seen and examine, chart reviewed, seen, and examined. He is doing better. Has been stepped down from the ICU. He does complain of being short of breath and waking up at night , gasping for air. I explained to him that he has sleep apnea and should be on a BIPAP, which he has been refusing the majority of his hospital stay. Otherwise, his O2 saturations have remained stable . I encouraged the patient to continue with incentive spirometry. Review of Systems: Negative except as above. Medications: List reviewed. Physical Examination: Vital Signs: Temperature 97, heart rate 106, blood pressure 121/69, respirations 20, O2 99% on 2 L v ia nasal cannula. GENERAL: Awake, alert, oriented x3, in some mild distress. Elderly male, somewhat ill-appearing. CV: S1 and S2. Irregularly irregular. Peripheral pulses present. Respiratory: Diminished breath sounds. Poor inspiratory effort. No wheezing. GASTROINTESTINAL: Abdomen is soft, nontender. Mild tenderness to palpation around the incision site . Very minimal distention. Incision site clean, dry, intact. Bowel sounds positive. Extremities: No clubbing, cyanosis, edema. Neurologic: Nonfocal. Laboratory Data: Sodium 139, potassium 3.5, chloride 99, CO2 33, BUN 28, creatinine 1.6, glucose 122 , calcium 8.6, phosphorus 2.4, magnesium 1.8. WBC 9.7, H and H 10.5, 33.7, platelets 281, neutrophil s 78%. Assessment: An 82-year-old male with: 1.Colon cancer, status post hemicolectomy with fascial dehiscence, status post closure, doing well p ostoperatively, tolerating his diet. 2.Shortness of breath secondary to chronic obstructive pulmonary disease, on supplemental oxygen. 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 We will continue nebuliz ers and O2. 4.Bilateral pneumonia. Continue IV antibiotics. Sputum culture negative. 5.Bilateral pleural effusions, likely have some atelectasis as well. We will continue incentive spi rometry, IV fluids adjusted. 6.Atrial fibrillation, chronic, now with controlled ventricular rate. Continue anticoagulation and rate control. 7.Essential hypertension, stable. 8.Acute on chronic kidney disease stage 3. Creatinine stable. Continue to monitor. Avoid NSAIDs. 9.Iron deficiency anemia. H and H stable. Continue to monitor. Transfuse as needed. 10.Left renal cyst 4 cm, benign. 11.Parkinson disease. Plan: Encouraged the patient to sit up on the side of the bed and chair. PT evzeferino. Discharge planni ng to LTAC. /TG Voice ID: [id number] Report ID: [id number]
[2017-11-19 12:25] LABS: Platelet Estimate ADEQ; Urine White Blood Cell Casts OK
[2017-11-19 12:26] LABS: Anisocytosis 1+; Blood Morphology Comment NOTED (NOT SEEN); Hypochromasia 1+
[2017-11-19] MEDS: DEXTROSE 10%-WATER 500 ML IV SCH (13:44)
[2017-11-19] MEDS ORDERED: FUROSEMIDE 40 MG/4 ML VIAL IV ONE (14:01)
[2017-11-19] MEDS: RIVAROXABAN 15 MG TABLET PO SCH (16:50)
--- NOTE | 2017-11-19 19:35 | PN ---
Date of Progress Note: 11/19/2017 Subjective: The patient had an episode of shortness of breath with respiratory distress. The patien t being on diuresis. Objective: Vital Signs: When I saw the patient, blood pressure 104/57, pulse of 85. Chest: Crackles bilateral. Mild wheezing. Heart: S1, S2. Systolic murmur. Abdomen: Soft, nontender. Extremity: No edema. Laboratory Data: H and H 10.5/33.7. Sodium 139, potassium 3.5, bicarb 33, BUN 28, creatinine 1.6, c alcium 8.6, phosphorus 2.4, magnesium 1.8. Medications: Current medications the patient on its include, 1.Lasix 40 mg daily. 2.Carbidopa. 3.Diltiazem. 4.Metoprolol. 5.Pantoprazole. 6.Xarelto. Assessment And Plan: 1.Acute kidney injury secondary to prerenal/cardiorenal, recover, plateau. Currently over volume. I am going to give extra dose of Lasix today. 2.Hypertension, controlled, optimal. Continue current medication. 3.Colon cancer, status post surgery. We will follow up with Surgery. 4.Hypokalemia and hypomagnesemia. We will supplement. HOME/TG Voice ID: [id number] Report ID: [id number]
[2017-11-20] MEDS: IPRATROPIUM BROM 0.5MG/2.5ML NEB SCH ×4 (01:48→20:11)
[2017-11-20] MEDS: DILTIAZEM HCL 180 MG SR CAP PO SCH (05:47)
[2017-11-20 06:40] LABS: Absolute Lymphocytes (CBC) 1.7 K/uL (0.7-4.9); Absolute Neutrophil 8.4 K/uL (1.8-8.0); Basophils % 0.5 % (0-1.3); Eosinophils % 1.7 % (0-4.4); Hematocrit 34.8 % (39.6-49.0); Lymphocytes % 15.2 % (15.3-44.8); MCH 20.9 pg (27.0-35.0); MCV 68.2 fL (80-100); MPV 8.7 fL (7.6-11.3); Monocytes % 8.4 % (3.3-12.3)
[2017-11-20 06:51] LABS: Magnesium 1.8 mg/dL (1.8-2.4); Phosphorus 2.7 mg/dL (2.5-4.9); Potassium 4.3 mmol/L (3.5-5.1)
[2017-11-20] MEDS: ARFORMOTEROL TARTRATE 15 MCG/2 ML VIAL.NEB NEB SCH ×2 (07:54→20:11)
[2017-11-20] MEDS: METOPROLOL TAR 50 MG TAB PO SCH ×2 (08:00→17:17)
[2017-11-20] MEDS: FUROSEMIDE 40 MG/4 ML VIAL IV SCH (09:00)
[2017-11-20] MEDS: CARBIDOPA/LEVODOPA 25/100 TAB PO SCH ×2 (09:50→20:29)
[2017-11-20] MEDS: PANTOPRAZOLE 40 MG INJ IVP SCH (09:50)
[2017-11-20] MEDS: DOCUSATE NA 100 MG CAP PO SCH (09:50)
[2017-11-20] MEDS: SUPLENA IMPAIRED RENAL 237 ML CAN PO SCH ×2 (09:58→21:32)
[2017-11-20] MEDS ORDERED: FUROSEMIDE 20 MG/ 2ML VIAL IV ONE (10:14)
--- NOTE | 2017-11-20 10:57 | P.PN ---
Subjective Date of Service: 11/20/17 Primary Care Provider: Dr. Vela; Pulmonary-Dr. Starks Chief Complaint: COPD Patient is doing well no complaints compliant with BiPAP for a to be Dc today Review of Systems General: Weakness Respiratory: Shortness of Breath Physical Examination - Vital Signs Temperature: 96.6 F Blood Pressure: 95/66 Pulse: 111 Respirations: 18 Pulse Ox (%): 95 - Physical Exam General: Alert, Oriented x3 HEENT: Atraumatic Neck: Supple Respiratory: Clear to auscultation bilaterally, Diminished - Studies Laboratory Data (last 24 hrs) 11/20/17 05:58: Sodium 138, Potassium 4.3, BUN 28 H, Creatinine 1.60 H, Glucose 115 H, Phosphorus 2.7, Magnesium 1.8 11/20/17 05:58: WBC 11.3 H D, Hgb 10.7 L, Hct 34.8 L, Plt Count 283 Medications List Reviewed: Yes Assessment & Plan - Problems (Diagnosis) (1) COPD exacerbation Onset Date: 11/05/16 Current Visit: No Status: Acute Plan: Patient admitted with COPD exacerbation after surgery he is currently doing better final signs are all stable saturation satisfactory he uses BiPAP on intermittent basis blood pressure is slightly low probably due due to diarrhea he does take diltiazem and metoprolol at home patient is anti coagulated need physical therapy Physician Review Additional Text: Impression: Colon cancer status post hemicolectomy. Shortness of breath likely COPD related with atelectasis and diaphragmatic dysfunction due to recent surgery. Possible on pneumonia to the right lower lobe noted CHF, diastolic dysfunction, chronic. COPD, mild exacerbation Atrial fibrillation on chronic anti coagulation therapy Hypertension Chronic renal disease, acute on chronic Hyperkalemia, resolved Anemia with history of iron deficiency currently on IV iron Left renal cyst, 4 cm, benign Parkinson's disease Plan: Patient continues to be in ICU status post elective hemicolectomy for colon cancer. Case discussed at length with surgery. Patient continues with IV chips. Diet will be slowly advanced. If this is not improved patient may require CT scan to further assess. Patient may require skilled placement in the near future at discharge. This we further discussed with surgery. Patient has been adamant about going home with home health/physical therapy. Surgery to further address. Shortness of breath improved likely secondary to COPD exacerbation with atelectasis, right upper lobe pneumonia, and diaphragmatic dysfunction due to recent surgery. Patient continues to have hypoxia whenever he takes off his oxygen. He is encouraged to use incentive spirometer. Will wean off oxygen over time. Patient with atrial fibrillation on chronic anti coagulation therapy. Patient continues to be on his prior medications including his anti coagulation therapy. Spoke with cardiology. No further intervention required. Patient continues with hypertensive medication. Will continue monitor and adjust appropriately. Patient with acute on chronic renal disease. Renal function improved. Will continue monitor closely. Nephrology on the case. Continue with IV fluids. Anemia with history of iron deficiency anemia. Patient on IV iron. Will continue monitor hemoglobin closely since the patient is on chronic anti coagulation therapy. If hemoglobin less than 7 patient may require transfusion. So far blood, urine and sputum cultures negative. Improvement of electrolytes noted. I will turn the service over to Dr. Vela tomorrow. I will go over the plan of care with her.
[2017-11-20] MEDS: DEXTROSE 10%-WATER 500 ML IV SCH (11:08)
--- NOTE | 2017-11-20 15:13 | P.PN ---
Subjective Date of Service: 11/20/17 Primary Care Provider: Dr. Vela; Pulmonary-Dr. Starks Chief Complaint: COPD Patient is oriented, states pain improved, + gas, +BM, no nausea and emesis, ambulated, no acute events Physical Examination - Vital Signs Temperature: 97.8 F Blood Pressure: 113/68 Pulse: 100 Respirations: 18 Pulse Ox (%): 95 - Physical Exam General: Alert, In no apparent distress HEENT: Mucous membr. moist/pink Respiratory: Clear to auscultation bilaterally, Normal air movement Cardiovascular: Regular rate/rhythm Gastrointestinal: Soft and benign (minimal appropriate TTP), No ascites, No masses, No rebound, No guarding Neurological: Normal speech - Studies Laboratory Data (last 24 hrs) 11/20/17 05:58: Sodium 138, Potassium 4.3, BUN 28 H, Creatinine 1.60 H, Glucose 115 H, Phosphorus 2.7, Magnesium 1.8 11/20/17 05:58: WBC 11.3 H D, Hgb 10.7 L, Hct 34.8 L, Plt Count 283 Medications List Reviewed: Yes Assessment And Plan - Current Problems (Diagnosis) (1) Colon adenocarcinoma Onset Date: 11/11/17 Current Visit: Yes Status: Acute Plan: 82 year old man with colon cancer s/p right hemicolectomyPOD #5 Gen: pain controlled so will continue norco 7.5, and morphine Q4 for breakthrough pain CVS: tachycardia improving, likely multifactorial including SIRS, post operative pain, intermittent hypoxemia Pulm: respiratory insufficiency improved - pulmonary toilet, incentive spirometry Q15 min, nebs, chest PT, sit up in chair, cough and deep breathing, benadryl prn , NT suction prn GI: abdomen mild appropriate tenderness post op, incision clean with minimal serous drainage, will continue serial exams, abdominal binder Renal: renal insufficiency, 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 Shortness of breath likely COPD related with atelectasis and diaphragmatic dysfunction due to recent surgery. Possible on pneumonia to the right lower lobe noted CHF, diastolic dysfunction, chronic. COPD, mild exacerbation Atrial fibrillation on chronic anti coagulation therapy Hypertension Chronic renal disease, acute on chronic Hyperkalemia, resolved Anemia with history of iron deficiency currently on IV iron Left renal cyst, 4 cm, benign Parkinson's disease Plan: Patient continues to be in ICU status post elective hemicolectomy for colon cancer. Case discussed at length with surgery. Patient continues with IV chips. Diet will be slowly advanced. If this is not improved patient may require CT scan to further assess. Patient may require skilled placement in the near future at discharge. This we further discussed with surgery. Patient has been adamant about going home with home health/physical therapy. Surgery to further address. Shortness of breath improved likely secondary to COPD exacerbation with atelectasis, right upper lobe pneumonia, and diaphragmatic dysfunction due to recent surgery. Patient continues to have hypoxia whenever he takes off his oxygen. He is encouraged to use incentive spirometer. Will wean off oxygen over time. Patient with atrial fibrillation on chronic anti coagulation therapy. Patient continues to be on his prior medications including his anti coagulation therapy. Spoke with cardiology. No further intervention required. Patient continues with hypertensive medication. Will continue monitor and adjust appropriately. Patient with acute on chronic renal disease. Renal function improved. Will continue monitor closely. Nephrology on the case. Continue with IV fluids. Anemia with history of iron deficiency anemia. Patient on IV iron. Will continue monitor hemoglobin closely since the patient is on chronic anti coagulation therapy. If hemoglobin less than 7 patient may require transfusion. So far blood, urine and sputum cultures negative. Improvement of electrolytes noted. I will turn the service over to Dr. Vela tomorrow. I will go over the plan of care with her.
--- NOTE | 2017-11-20 16:45 | PN ---
Date of Progress Note: 11/20/2017 Subjective: The patient seen and examined. Chart reviewed and case discussed with RN. The patient states he had an episode of passing up some of his Ensure. Denies any choking per nursing staff. The patient did have some Ensure while he started coughing, however, sputum after that was clear. No blood or any color to the sputum. Review of Systems: Negative except as above. Medications: List reviewed. Physical Examination: Vital Signs: Temperature 96.6, heart rate 111, blood pressure 95/66, respirations 18, O2 95% on 2 L nasal cannula. General: Awake, alert, oriented x3. Elderly male, in no acute distress. CV: S1, S2. Irregularly irregular. Peripheral pulses present. Respiratory: Diminished breath sounds at the bases, improving wheezing. Gastrointestinal: Abdomen is soft, nontender, nondistended. Positive bowel sounds. Extremities: No clubbing, cyanosis, edema. Neurologic: Nonfocal. Skin: Abdominal incision site clean, dry, intact. No drainage. Laboratory Data: Sodium 138, potassium 4.3, chloride 99, CO2 of 35, BUN 28, creatinine 1.6, glucose 115, calcium 9. WBC 11.3, H and H 10.7 and 34.8, neutrophils 74%, platelets 283. Blood cultures, no growth today. Assessment: An 82-year-old male with: 1. Colon cancer, status post hemicolectomy and fascial dehiscence, status post closure, doing well, tolerating diet. 2. Shortness of breath secondary to chronic obstructive pulmonary disease. We will continue supplemental oxygen. 3. 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 We will continue nebulizers and supplemental O2. 4. Bilateral pneumonia. Sputum culture and blood cultures negative, improved. Continue antibiotics. 5. Bilateral pleural effusions and atelectasis. Continue incentive spirometry , improving. 6. Atrial fibrillation, chronic with controlled ventricular rate. Continue anticoagulation. 7. Essential hypertension. Blood pressure normotensive to hypotensive currently. We will continue to monitor. 8. [id number] kidney disease, stage 3. Creatinine stable. No NSAIDs or nephrotoxins. Continue to monitor. Appreciate, . 9. Deficiency anemia. Monitor H and H, transfuse as needed. 10. Left renal cyst 4 cm, benign. 11. Parkinson disease and gastrointestinal and deep venous thrombosis prophylaxis. Addressed the patient on Xarelto for his atrial fibrillation. Plan: Discharge to rehab once accepted. /TG Voice ID: [id number] Report ID: [id number] MTDD
[2017-11-20] MEDS: RIVAROXABAN 15 MG TABLET PO SCH (17:18)
--- NOTE | 2017-11-20 20:30 | PN ---
Date of Progress Note: 11/20/2017 Subjective: The patient is doing better. Objective: Vital Signs: Blood pressure 155/88, pulse of 90. Chest: Faint crackles in the base, more prominent in right base. Heart: S1, S2. Regular. Abdomen: Soft, dressing. Extremities: Trace edema. Laboratory Data: Sodium 139, potassium 4.3, bicarb 35, BUN 28, creatinine 1.6, glucose 115. WBC 11. 3, H and H 10.7/34.8, platelets 283. Medications: Current medications the patient on its include, 1.Tylenol. 2.Hydrocodone. 3.Carbidopa. 4.Diltiazem. 5.Lasix. 6.Metoprolol. 7.Zofran. 8.Pantoprazole. Assessment And Plan: 1.Acute kidney injury on chronic kidney disease, recover, plateau. 2.Hypertension, controlled, not optimal. We will adjust blood pressure medication. 3.Overt volume. Continue with diuresis. 4.Colon cancer, status post surgery. Will follow up with Surgery. CARISA Voice ID: [id number] Report ID: [id number]
[2017-11-20] MEDS: HYDROCODONE/APAP 7.5/325 MG TAB PO PRN (20:35)
[2017-11-21] MEDS: IPRATROPIUM BROM 0.5MG/2.5ML NEB SCH ×4 (02:17→20:45)
[2017-11-21 05:56] LABS: Absolute Lymphocytes (CBC) 1.7 K/uL (0.7-4.9); Absolute Monocytes 0.7 K/uL (0.1-1.3); Absolute Neutrophil 6.5 K/uL (1.8-8.0); Basophils % 0.8 % (0-1.3); Eosinophils % 2.3 % (0-4.4); Hematocrit 32.5 % (39.6-49.0); Lymphocytes % 18.8 % (15.3-44.8); MCH 21.7 pg (27.0-35.0); MCV 68.3 fL (80-100); MPV 8.8 fL (7.6-11.3); RBC Red Blood Cell Count 4.75 M/uL (4.33-5.43)
[2017-11-21] MEDS: DILTIAZEM HCL 180 MG SR CAP PO SCH (06:00)
[2017-11-21 06:02] LABS: Magnesium 1.5 mg/dL (1.8-2.4); Phosphorus 2.1 mg/dL (2.5-4.9); Potassium 3.1 mmol/L (3.5-5.1)
[2017-11-21] MEDS: DEXTROSE 10%-WATER 500 ML IV SCH (06:09)
[2017-11-21] MEDS: ARFORMOTEROL TARTRATE 15 MCG/2 ML VIAL.NEB NEB SCH ×2 (07:36→20:44)
[2017-11-21] MEDS ORDERED: MAGNESIUM SULFATE 1 gm IVPB 1 GM/100 ML BAG IV ONE (08:30)
[2017-11-21] MEDS ORDERED: POTASSIUM PHOS IN 0.9 % NACL 15 MMOL/250 ML BAG IV ONE (08:30)
[2017-11-21] MEDS: CARBIDOPA/LEVODOPA 25/100 TAB PO SCH ×2 (09:11→20:02)
[2017-11-21] MEDS: METOPROLOL TAR 50 MG TAB PO SCH ×2 (09:11→17:10)
[2017-11-21] MEDS: FUROSEMIDE 40 MG/4 ML VIAL IV SCH (09:12)
[2017-11-21] MEDS: PANTOPRAZOLE 40 MG INJ IVP SCH (09:12)
[2017-11-21] MEDS: HYDROCODONE/APAP 7.5/325 MG TAB PO PRN ×3 (10:57→23:30)
[2017-11-21] MEDS: SUPLENA IMPAIRED RENAL 237 ML CAN PO SCH ×2 (11:01→20:03)
[2017-11-21] MEDS: ONDANSETRON 4 MG/2 ML VIAL IV PRN (14:01)
[2017-11-21] MEDS: RIVAROXABAN 15 MG TABLET PO SCH (17:10)
--- NOTE | 2017-11-21 17:58 | PN ---
Date of Progress Note: 11/21/2017 Subjective: The patient seen and examined. Chart reviewed and case discussed with RN. The patient overall had a good night. Does report some nausea with breakfast this morning, otherwise doing well, passing gas. Review of Systems: Negative except as above. Medications: List reviewed. Physical Examination: Vital Signs: Temperature 97.3, heart rate 88, blood pressure 107/65, respirations 18, O2 100% on 2 L via nasal cannula. General: Awake, alert, oriented x3, not in any acute distress. Elderly male. CV: S1, S2. Irregularly irregular. Peripheral pulses present. Respiratory: Moving air well bilaterally. No wheezing. Gastrointestinal: Abdomen is soft. Mild tenderness to palpation on the right near the incision site , clean, dry, and intact. Extremities: No clubbing, cyanosis, or edema. Neurologic: Nonfocal. Laboratory Data: Sodium 138, potassium 3.1, chloride 99, CO2 34, BUN 28, creatinine 1.5, glucose 100 , calcium 8.5, and phosphorus 2.1, magnesium 1.5. WBC 9.3, H and H 10.3, 32.5, platelets 249, neutro phils 70%. Cultures negative. Assessment And Plan: An 82-year-old male with: 1.Colon cancer, status post hemicolectomy and fascial dehiscence, status post closure, doing well. Tolerating diet, did have some nausea today but no vomiting. 2.Shortness of breath secondary to acute chronic obstructive pulmonary disease and sleep apnea. The patient refuses BiPAP. 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 We will brina nue nebulizers and supplemental O2. 4.Bilateral pneumonia. Cultures negative, on antibiotics, improving. 5.Bilateral pleural effusion and atelectasis, improved with incentive spirometry. Fluid balance is 400. No edema. 6.Atrial fibrillation, chronic with controlled ventricular rate. Continue anticoagulation. 7.Essential hypertension. Blood pressure doing well. 8.Iron deficiency anemia. Monitor H and H and transfuse as needed. 9.Acute on chronic kidney disease stage 3. Creatinine stable. Avoid NSAIDs. 10.Left renal cyst 4 cm, benign. 11.Parkinson disease. 12.Gastrointestinal and deep venous thrombosis prophylaxis addressed. Continue Xarelto. Plan: Discharge to rehab once accepted. Should note that the patient is not compliant with his CPAP and BiPAP. SA/MODL Voice ID: [id number] Report ID: [id number]
[2017-11-22] MEDS: DEXTROSE 10%-WATER 500 ML IV SCH (02:15)
[2017-11-22] MEDS: IPRATROPIUM BROM 0.5MG/2.5ML NEB SCH ×4 (02:19→19:45)
--- NOTE | 2017-11-22 03:44 | PN ---
Date of Progress Note: 11/21/2017 Chief Complaint: Acute kidney injury. History Of Present Illness: Acute kidney injury, severe, nonoliguric, associated with acute tubular necrosis. The patient underwent surgery for colon cancer. Currently, he is transferred out from ICU . Hypotension, resolved. Review of Systems: Denies fever, chills. Physical Examination: Lungs: Clear to auscultation bilaterally. Heart: S1, S2. Abdomen: Soft, benign, nontender. Extremities: Some edema present in both ankles. Vital Signs: Blood pressure is 160/80, heart rate 90. Laboratory Data: Sodium 139, potassium 4.3, , BUN 28, creatinine 1.6, glucose 115, hemoglo bin 11.3. Impression And Plan: 1.Acute kidney injury due to acute tubular necrosis. Renal function is plateauing. Monitor urine o utput, electrolytes, and fluid balance. 2.Hypertension. Continue beta mirian and calcium channel mirian. The patient has history of arrh ythmia. Avoid GASTON inhibitor in view of acute kidney injury. 3.Colon cancer per primary team and surgery. 4.Anemia of chronic kidney disease. Hemoglobin is 10.3. The patient has underlying chronic kidney disease stage 3. Avoid nonsteroidal anti-inflammatory medication. 5.Renal function was evaluated today and BUN was 28, creatinine 1.5. Renal function has not improve d significantly. 6.The patient was found to have hypomagnesemia, magnesium 1.5, hypokalemia, and hypophosphatemia. Continue replacement accordingly. ROSA/TG Voice ID: [id number] Report ID: [id number]
[2017-11-22 04:26] LABS: Absolute Lymphocytes (CBC) 1.8 K/uL (0.7-4.9); Absolute Monocytes 0.8 K/uL (0.1-1.3); Absolute Neutrophil 6.7 K/uL (1.8-8.0); Basophils % 0.7 % (0-1.3); Eosinophils % 2.2 % (0-4.4); Hematocrit 31.8 % (39.6-49.0); Lymphocytes % 18.4 % (15.3-44.8); MCH 21.8 pg (27.0-35.0); MPV 8.8 fL (7.6-11.3); Monocytes % 8.7 % (3.3-12.3); RBC Red Blood Cell Count 4.61 M/uL (4.33-5.43)
[2017-11-22 04:47] LABS: Magnesium 1.7 mg/dL (1.8-2.4); Phosphorus 2.5 mg/dL (2.5-4.9); Potassium 3.4 mmol/L (3.5-5.1)
[2017-11-22] MEDS: DILTIAZEM HCL 180 MG SR CAP PO SCH (05:28)
[2017-11-22] MEDS: ARFORMOTEROL TARTRATE 15 MCG/2 ML VIAL.NEB NEB SCH ×2 (07:30→19:45)
--- NOTE | 2017-11-22 08:47 | P.PN ---
Subjective Date of Service: 11/22/17 Primary Care Provider: Dr. Vela; Pulmonary-Dr. Starks Chief Complaint: COPD Patient is oriented, states pain improved, + gas, +BM, no nausea and emesis, ambulated, no acute events. Patient was informed of a in a great grandson overnight, and as such is emotionally distraught Physical Examination - Vital Signs Temperature: 97 F Blood Pressure: 117/65 Pulse: 82 Respirations: 16 Pulse Ox (%): 96 - Physical Exam General: Alert, In no apparent distress, Cooperative HEENT: Mucous membr. moist/pink Respiratory: Clear to auscultation bilaterally, Normal air movement Cardiovascular: No edema Gastrointestinal: Soft and benign, Other (incision clean and dry, nataliya in place) Neurological: Normal speech - Studies Laboratory Data (last 24 hrs) 11/22/17 03:43: Sodium 139, Potassium 3.4 L, BUN 27 H, Creatinine 1.40 H, Glucose 108 H, Phosphorus 2.5, Magnesium 1.7 L 11/22/17 03:43: WBC 9.6, Hgb 10.0 L, Hct 31.8 L, Plt Count 256 Medications List Reviewed: Yes Assessment And Plan - Current Problems (Diagnosis) (1) Colon adenocarcinoma Onset Date: 11/11/17 Current Visit: Yes Status: Acute Plan: 82 year old man with colon cancer s/p right hemicolectomyPOD Gen: pain controlled so will continue norco 7.5 dc iv pain meds CVS: tachycardia improving, likely multifactorial including SIRS, post operative pain, intermittent hypoxemia Pulm: respiratory insufficiency improved - pulmonary toilet, incentive spirometry Q15 min, nebs, chest PT, sit up in chair, cough and deep breathing, benadryl prn , NT suction prn GI: abdomen mild appropriate tenderness post op, incision clean with minimal serous drainage, will continue serial exams, abdominal binder Renal: renal insufficiency, continue plan with broomcorn seeder, ID: dc antibiotics levaquin, flagyl, leukocytosis minimal, FEN: continue IV hydration electrolyte replacement protocol, nutrition: soft diet with 4 cans ensure daily Endo: continue insulin sliding scale Prophylaxis: patent restarted on xeralto, SCDs in place PT: physcial therapy to assist with OOB to chair Placement: the patient will require rehab, ok to go from surgical standpoint Physician Review Additional Text: Impression: Colon cancer status post hemicolectomy. Shortness of breath likely COPD related with atelectasis and diaphragmatic dysfunction due to recent surgery. Possible on pneumonia to the right lower lobe noted CHF, diastolic dysfunction, chronic. COPD, mild exacerbation Atrial fibrillation on chronic anti coagulation therapy Hypertension Chronic renal disease, acute on chronic Hyperkalemia, resolved Anemia with history of iron deficiency currently on IV iron Left renal cyst, 4 cm, benign Parkinson's disease Plan: Patient continues to be in ICU status post elective hemicolectomy for colon cancer. Case discussed at length with surgery. Patient continues with IV chips. Diet will be slowly advanced. If this is not improved patient may require CT scan to further assess. Patient may require skilled placement in the near future at discharge. This we further discussed with surgery. Patient has been adamant about going home with home health/physical therapy. Surgery to further address. Shortness of breath improved likely secondary to COPD exacerbation with atelectasis, right upper lobe pneumonia, and diaphragmatic dysfunction due to recent surgery. Patient continues to have hypoxia whenever he takes off his oxygen. He is encouraged to use incentive spirometer. Will wean off oxygen over time. Patient with atrial fibrillation on chronic anti coagulation therapy. Patient continues to be on his prior medications including his anti coagulation therapy. Spoke with cardiology. No further intervention required. Patient continues with hypertensive medication. Will continue monitor and adjust appropriately. Patient with acute on chronic renal disease. Renal function improved. Will continue monitor closely. Nephrology on the case. Continue with IV fluids. Anemia with history of iron deficiency anemia. Patient on IV iron. Will continue monitor hemoglobin closely since the patient is on chronic anti coagulation therapy. If hemoglobin less than 7 patient may require transfusion. So far blood, urine and sputum cultures negative. Improvement of electrolytes noted. I will turn the service over to Dr. Vela tomorrow. I will go over the plan of care with her.
[2017-11-22] MEDS: PANTOPRAZOLE 40 MG INJ IVP SCH (10:48)
[2017-11-22] MEDS: FUROSEMIDE 40 MG/4 ML VIAL IV SCH (10:50)
[2017-11-22] MEDS: CARBIDOPA/LEVODOPA 25/100 TAB PO SCH ×2 (10:52→21:52)
[2017-11-22] MEDS: METOPROLOL TAR 50 MG TAB PO SCH ×2 (10:52→18:20)
[2017-11-22] MEDS: HYDROCODONE/APAP 7.5/325 MG TAB PO PRN ×2 (10:58→18:15)
--- NOTE | 2017-11-22 14:48 | P.DS ---
Admission Date: 11/10/17 Discharge Date: 11/22/17 Primary Care Provider: Dr. Vela; Pulmonary-Dr. Starks Disposition: TRANSFER TO INPATIENT REHAB Discharge Condition: GOOD Reason for Admission: COPD Consultations: Surgery-Dr. Abarca Pulmonary-Dr. Starks Nephrology-Dr. Marshall Procedures: Surgery: Date of Procedure: 11/10/2017 Surgeon: Talon Abarca MD Preoperative Diagnosis: Right colon adenocarcinoma. Postoperative Diagnosis: Right colon adenocarcinoma. Procedure Performed: Open right hemicolectomy with primary anastomosis. Anesthesia: General endotracheal. Estimated Blood Loss: Less than 30 cc. Specimen: Right colon. Findings: Foreshortened mesentery and colon well tattooed. Complications: None. Procedure: 11/15/2017 Abdominal dehiscence repair Medical Problem List: Colon cancer status post hemicolectomy and Fascial dehiscence, status post closure Shortness of breast secondary COPD exacerbation with atelectasis and bilateral pneumonia Obstructive sleep apnea Bilateral pleural effusions Chronic diastolic CHF Atrial fibrillation on chronic anti coagulation therapy Hypertension Acute on chronic renal disease Anemia with history of iron deficiency anemia Left renal cysts, 4 cm, benign Parkinson's Brief History of Present Illness: 82-year-old male presented to the hospital for elective hemicolectomy for colon cancer. Surgery was done on 11/10/2017. I was consulted for medical management. Hospital Course: Patient presented to the hospital electively for hemicolectomy secondary to colon cancer. Surgery was done on 11/10/2017. Patient developed dehiscence of wound. On 11/15 this was repaired. Patient tolerated the procedure well. Since that time the patient has slowly improved. At discharge patient will go inpatient rehab to continue physical therapy and wound care. Patient will continue with current pain medication including Shannon. During the course of his hospitalization the patient developed shortness of breath secondary to COPD exacerbation with atelectasis and bilateral pneumonia. Consultation with pulmonology was done. The patient has significantly improved. Patient on nasal cannula at this time. Patient will continue with COPD medication-Brovana 1 unit dose twice daily, albuterol 1 unit dose 3 times a day as needed for shortness of breath and Atrovent 1 unit dose 3 times a day as needed for shortness of breath. Patient will continue with oxygen to maintain sats above 90%. Further adjustment may be required. Patient has underlying obstructive sleep apnea. Patient has refused BiPAP. This may be required in the future. Patient with bilateral pleural effusions with history of chronic diastolic CHF. Patient with CHF medication. 1500 cc per day fluid restriction and low-salt diet will be continued. Patient will continue with incentive spirometer. Patient with atrial fibrillation on chronic anti coagulation therapy. Patient will continue with his current medications. This includes diltiazem 180 mg daily for rate control and Xarelto 15 mg once daily for anti coagulation therapy. Patient will follow up with cardiology as directed. Patient has hypertension. Patient will continue with his medication-diltiazem CD 180 mg daily and metoprolol 50 mg 1 pill twice daily. Recommendation is to maintain blood pressures less 150/80. Further adjustment can be done by his PCP. Patient has acute on chronic renal disease was consulted. Patient did well in the course of his stay. Recommendation to recheck lab-BMP in 1 week to monitor progress. Patient continue with Lasix 40 mg daily. This can be monitored and adjusted by a nephrology. Pateint has anemia with history of deficiency anemia. He received IV iron. Patient will need to be monitored closely. Recommendation to recheck lab-CBC in 1 week to monitor his progress. Patient has history of Parkinson's. Patient will continue with carbidopa levodopa 25/100 mg 1 pill twice daily. Patient has GERD. Patient will continue with Protonix 40 mg 1 pill once daily. Vital Signs/Physical Exam: Temp Pulse Resp BP Pulse Ox 98.0 F 97 H 18 146/64 H 96 11/22/17 12:00 11/22/17 12:00 11/22/17 12:00 11/22/17 12:00 11/22/17 12:00 General: Alert, In no apparent distress, Oriented x3, Cooperative HEENT: Atraumatic Neck: Supple Respiratory: Clear to auscultation bilaterally, Normal air movement Cardiovascular: Irregular heart rate/rhythm (Atrial fibrillation, rate controlled) Gastrointestinal: Normal bowel sounds, No masses, No rebound, No guarding, Other (Postop changes noted.) Musculoskeletal: No tenderness, No warmth Integumentary: No erythema, No warmth, No cyanosis Neurological: Normal speech, Normal strength at 5/5 x4 extr, Normal tone, Normal affect Laboratory Data at Discharge: WBC 9.6 K/uL (4.3-10.9) 11/22/17 03:43 Hgb 10.0 g/dL (13.6-17.9) L 11/22/17 03:43 Hct 31.8 % (39.6-49.0) L 11/22/17 03:43 Plt Count 256 K/uL (152-406) 11/22/17 03:43 Sodium 139 mmol/L (136-145) 11/22/17 03:43 Potassium 3.4 mmol/L (3.5-5.1) L 11/22/17 03:43 BUN 27 mg/dL (7-18) H 11/22/17 03:43 Creatinine 1.40 mg/dL (0.55-1.3) H 11/22/17 03:43 Glucose 108 mg/dL (74-106) H 11/22/17 03:43 Phosphorus 2.5 mg/dL (2.5-4.9) 11/22/17 03:43 Magnesium 1.7 mg/dL (1.8-2.4) L 11/22/17 03:43 Home Medications: Pentoxifylline 400 mg PO TIDWM 11/21/15 Losartan Potassium [Cozaar*] 50 mg PO [id number] 04/24/16 Topiramate 25 mg PO BID 06/17/17 Budesonide [Pulmicort*] 0.25 mg IH DAILY 07/15/17 Diltiazem HCl [Cartia Xt] 180 mg PO [id number] 07/15/17 Tiotropium [Spiriva Handihaler*] 1 sprays IH DAILY #1 inh 07/21/17 Albuterol Sulfate [Proair Respiclick] 2 puff IH QID 09/29/17 Metoprolol Tartrate 50 mg PO BIDWM 09/29/17 Rivaroxaban [Xarelto*] 15 mg PO DAILY 09/29/17 Diphenhydramine [Benadryl Tab/Cap] 25 mg PO BEDTIME 11/02/17 Polyethylene Glycol 3350 [Miralax] 17 gm PO PRN PRN 11/02/17 predniSONE [Deltasone] 10 mg PO DAILY 11/02/17 Carbidopa/Levodopa [Carbidopa-Levo 25-100 mg Odt] 1 tab PO BID 11/11/17 Ferrous Sulfate [Ferrous Sulfate*] 325 mg PO TID 11/11/17 Formoterol Fumarate 1 inhaler IH DAILY 11/11/17 Patient Discharge Instructions: 1. Patient will be transferred to inpatient rehab to continue therapy. 2. Patient presented to the hospital electively for hemicolectomy secondary to colon cancer. Surgery was done on 11/10/2017. Patient developed dehiscence of wound. On 11/15 this was repaired. Patient tolerated the procedure well. Since that time the patient has slowly improved. At discharge patient will go inpatient rehab to continue physical therapy and wound care. Patient will continue with current pain medication including Shannon. 3. During the course of his hospitalization the patient developed shortness of breath secondary to COPD exacerbation with atelectasis and bilateral pneumonia. Consultation with pulmonology was done. The patient has significantly improved. Patient on nasal cannula at this time. Patient will continue with COPD medication-Brovana 1 unit dose twice daily, albuterol 1 unit dose 3 times a day as needed for shortness of breath and Atrovent 1 unit dose 3 times a day as needed for shortness of breath. Patient will continue with oxygen to maintain sats above 90%. Further adjustment may be required. 4. Patient has underlying obstructive sleep apnea. Patient has refused BiPAP. This may be required in the future. 5. Patient with bilateral pleural effusions with history of chronic diastolic CHF. Patient with CHF medication. 1500 cc per day fluid restriction and low-salt diet will be continued. Patient will continue with incentive spirometer. 6. Patient with atrial fibrillation on chronic anti coagulation therapy. Patient will continue with his current medications. This includes diltiazem 180 mg daily for rate control and Xarelto 15 mg once daily for anti coagulation therapy. Patient will follow up with cardiology as directed. 7. Patient has hypertension. Patient will continue with his medication-diltiazem CD 180 mg daily and metoprolol 50 mg 1 pill twice daily. Recommendation is to maintain blood pressures less 150/80. Further adjustment can be done by his PCP. 8. Patient has acute on chronic renal disease was consulted. Patient did well in the course of his stay. Recommendation to recheck lab-BMP in 1 week to monitor progress. Patient continue with Lasix 40 mg daily. This can be monitored and adjusted by a nephrology. 9. Pateint has anemia with history of deficiency anemia. He received IV iron. Patient will need to be monitored closely. Recommendation to recheck lab-CBC in 1 week to monitor his progress. 10. Patient has history of Parkinson's. Patient will continue with carbidopa levodopa 25/100 mg 1 pill twice daily. 11. Patient has GERD. Patient will continue with Protonix 40 mg 1 pill once daily. Diet: Soft GI Activity: Fall precautions Time spent managing pt's care (in minutes): 55
[2017-11-22] MEDS: SUPLENA IMPAIRED RENAL 237 ML CAN PO SCH ×2 (18:15→21:00)
[2017-11-22] MEDS: RIVAROXABAN 15 MG TABLET PO SCH (18:20)
[2017-11-22 21:12] VITALS: BP 152/71; TEMP 97.5
[2017-11-22 22:32] VITALS: O2SAT 97
--- NOTE | 2017-11-23 03:27 | PN ---
Date of Progress Note: 11/22/2017 Subjective: The patient doing better, started ambulating. Physical Examination: Vital Signs: Blood pressure 152/71, pulse of 95. Chest: Faint crackles, bilateral base. Heart: S1, S2. Regular. Abdomen: Soft, nontender. Extremities: Trace edema. Laboratory Data: H and H 01/04.8. Sodium 139, potassium 3.4, bicarb 30, BUN 27, creatinine 1.4, mark cium 8.1, phos 2.5, magnesium 1.7. Current Medications: The patient is on, include Xarelto, diltiazem 180 daily, metoprolol 50 b.i.d., Sinemet, Lasix 40 daily, pantoprazole. Assessment And Plan: 1.Acute kidney injury secondary to prerenal, recovered, resolved. 2.Over volume. Continue diuresis. 3.Hypokalemia/hypomagnesemia. We will continue supplement. 4.Colon cancer status post surgery, follow up with the Surgery. CARISA Voice ID: [id number] Report ID: [id number]
== END 2017-11-22 23:24 | DRG 329 ==
LOC: OR 07:24 → 4TH 11:21 → 3RD-ICU 11-11 19:10 → 4TH 11-18 14:10
PROVIDERS: ADMIT Surgery; ATTEND Family Medicine
PROC: 0DTF0ZZ Resection of Right Large Intestine, Open Approach (ICD-10-PCS; principal; 2017-11-10 08:30)
PROC: 0WQF0ZZ Repair Abdominal Wall, Open Approach (ICD-10-PCS; 2017-11-15)
DX: C18.2 Malignant neoplasm of ascending colon (principal); N17.0 Acute kidney failure with tubular necrosis; J18.9 Pneumonia, unspecified organism; J96.20 Acute and chronic respiratory failure, unspecified whether with hypoxia or hypercapnia; J44.1 Chronic obstructive pulmonary disease with (acute) exacerbation; T81.32XA Disruption of internal operation (surgical) wound, not elsewhere classified, initial encounter; G20 Parkinson's disease; J44.9 Chronic obstructive pulmonary disease, unspecified; I48.91 Unspecified atrial fibrillation; E78.5 Hyperlipidemia, unspecified; K21.9 Gastro-esophageal reflux disease without esophagitis; I48.2 Chronic atrial fibrillation; D63.8 Anemia in other chronic diseases classified elsewhere; I12.9 Hypertensive chronic kidney disease with stage 1 through stage 4 chronic kidney disease, or unspecified chronic kidney disease; E87.5 Hyperkalemia; N18.3 Chronic kidney disease, stage 3 (moderate); N28.1 Cyst of kidney, acquired; D50.9 Iron deficiency anemia, unspecified; E87.6 Hypokalemia; E83.42 Hypomagnesemia; Z87.891 Personal history of nicotine dependence; Z79.01 Long term (current) use of anticoagulants
CPT/HCPCS: 36415; 71045; 74018; 74176; 76770; 80048; 80051; 81003; 81015; 82565; 82728; 82805; 83540; 83605; 83735; 84100; 84132; 84466; 84520; 85025; 87040; 87070; 87086; 87088; 87205; 88309; 93005; 94640; 94660; 94667; 94668; 94760; 97002; 97163; C9113; J0690; J1170; J1650; J1940; J2175; J2270; J2370; J2405; J2710; J2916; J3475; J7030; J7605

== ENCOUNTER 2017-11-21 14:37 | Inpatient (IN) | payer MEDICARE ==
--- NOTE | 2017-11-22 13:41 | R.PREADM ---
SCREENING DATE AND TIME 11/22/2017 10:36 (CDT) ANTICIPATED REHAB ADMISSION DATE 11/24/2017 REFERRING FACILITY [facility] REFERRAL DATE AND TIME 11/22/2017 10:36 (CDT) REFERRAL ROOM# 409 ACUTE ADMIT DATE 11/10/2017 Previous Rehabilitation(s): No. 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 CLINICAL LIAISON Vee Bowles PHYSICIAN REVIEWER Dr. Edilberto Colbert M.D. MR# [id number] NAME MYRA LE ADDRESS [address] [facility] [id number] DATE OF 1935 AGE 82 SSN# [id number] GENDER male MARITAL STATUS RACE white ADMIT FROM 02 - [facility] PRE-HOSPITAL LIVING SETTING 01 - Home (private home/apt. board/care, assisted living, [facility], transitional living) HOME TYPE AND DETAILS Type of home: single family house # of levels in the residence: 1 # of steps within the residence: 0 # of steps to enter the residence: 0 PRE-HOSPITAL LIVING WITH Family/Relatives FAMILY SUPPORT Yes PRIMARY FAMILY CONTACT NAME MARK EL PRIMARY FAMILY CONTACT PHONE PHONE PRIMARY FAMILY CONTACT ON ADM.? no IS PRIMARY FAMILY CONTACT AUTH. REP.? no 1ST EMERGENCY CONTACT MARK EL 1ST CONTACT PHONE PHONE 1ST CONTACT ON ADM. no IS 1ST CONTACT AUTH. REP.? no PHONE 2ND CONTACT ON ADM.? no PATIENT EMPLOYMENT STATUS Retired (for age) PATIENT EMPLOYER No Employer PAYOR INFORMATION: 1ST PAYOR NAME AARP MEDICARE COMPLETE 1ST PAYOR PHONE [phone] 1ST PAYOR INJURY/ILLNESS DUE TO ACCIDENT? No ANOTHER LIBERTARIAN RESPONSIBLE? No PRIMARY REHAB/ACUTE DIAGNOSIS: COLON ADENOCARCINOMA Chronic Renal Disease COPD PVD Parkinson's Disease ONSET DATE 11/10/2017 REHAB IMPAIRMENT CATEGORY (SARINA): 20 Miscellaneous (Misc) does NOT meet 60% rule PRIMARY DIAGNOSIS-RELATED SURGERIES: RIGHT HEMICOLECTOMY COMORBID REHAB/ACUTE DIAGNOSES: - N/A COPD Atrial Fibrillation Hypertension Osteoarthritis Chronic pain syndrome Hyperlipidemia Seasonal allergic rhinitis Erectile Dysfucntion Hydrocele Chronic Kidney Disease, Stage 3 Parkinson's Disease Tremor Anemia Lower GI Bleed Colonic Mass PVD INTERVENTIONS: - COPD 02 sats Medications Nebulizers Oxygen Resp. therapy X-rays - Atrial Fibrillation Anticoagulation Medications VS - Hypertension Fluid management Medications VS - Osteoarthritis Energy conservation Exercise Joint Protection Medications Pain management - PVD Dumont exercises Medications RISK FOR COMPLICATIONS: - COPD Acute Resp failure Pneumonia Resp. Arrest - Atrial Fibrillation CVA Heart failure Limb embolus - Hypertension CVA Hypotension FL TIA - Osteoarthritis Falls - PVD Amputation Gangrene Infection Ischemic ulcers Sepsis Wounds SUMMARY OF ACUTE HOSPITALIZATION: Pt. is a 82 yo Right-handed white male. On 11/10/2017 he was admitted to [facility] with diagnosis COLON ADENOCARCINOMA . His impairment category is Medically Complex Conditions 17 - Other Medically Complex Conditions (17. 9). Pre-morbidly, Pt. was independent/mod-I in Social Cognition, Self-Care, Locomotion, Sphincter Control , Transfers Control, and Communication; and he had good Sphincter Control. Currently, he has deficits of Balance, Locomotion, Endurance, Safety Awareness, Transfers Control, an d Self-Care. Pt. is now referred to [facility] for acute in-patient rehabilitation in order to maximize patient's functional independence in activities of daily living, strength, ROM, and mobi lity. Patient has realistic goal of being discharged at assistance level 6-Katheryn to reside at Home with Fam nahomy/Relatives. PAST MEDICAL HISTORY Anemia Atrial Fibrillation COPD Chronic Kidney Disease, Stage 3 Chronic pain syndrome Colonic Mass Hydrocele Hyperlipidemia Hypertension Lower GI Bleed Osteoarthritis PVD Parkinson's Disease Seasonal allergic rhinitis Tremor PAST SURGICAL HISTORY: Hernia repair MEDICATION ALLERGIES: No Known Drug Allergies (NKDA) ENVIRONMENTAL ALLERGIES: None Known - Substance Allergies None Known - Other Allergies None Known CODE STATUS: Full code WEIGHT/HEIGHT/BMI: WEIGHT 159 lbs HEIGHT 5' 9" BMI 23.5 DIET: - Diet Type Low Fiber - Diet - Solid Texture GI Soft - Diet - Liquid Texture Regular - Tube Feed N/A SKIN DIAGRAM: Incision on Abdomen; extent - average; stage - NS(Not Stageable). Treatment - Per Physician's Orders. REVIEW OF SYSTEMS: - Gen Alert and awake Lying in bed No apparent distress Oriented to: person, time, and place - Vital Signs Temperature: 98.1 F SBP/DBP: 166/68 Pulse: 99 Vital signs stable, afebrile Resp: 16 - CVS RRR VITAL SIGNS Temperature: 98.1 F SBP/DBP: 166/68 Pulse: 99 Resp: 16 Vital signs stable, afebrile CURRENT SPHINCTER CONTROL: Pre-hospital bladder status: continent # of bladder accidents in the last 7 days prior to screenin Pre-hospital bowel status: continent # of bowel accidents in the last 7 days prior to screenin Last Bowel Movement Date: 11/22/2017 DETAILED CURRENT FUNCTIONAL STATUS: - Bladder accident frequency: Ind - No accidents in the past 7 days - Bowel accident frequency: Ind - No accidents in the past 7 days - Walking score based on distance walked: 1(<=50ft) - Wheelchair score based on distance traveled: 0(N/A) FUNCTIONAL STATUS: - Self-Care A. Eating Ind Ind B. Grooming Ind sup C. Bathing Ind Magaly D. Dressing - Upper Ind Magaly E. Dressing - Lower Ind Magaly F. Toileting Ind Magaly - Sphincter Control G: Bladder control Ind Ind H: Bowel control Ind Ind - Transfers Control I. Bed/Chair/Wheelchair Ind modA J. Toilet Ind modA K. Tub/Shower Ind ADNO - Locomotion L. Walk/Wheelchair (B) Ind modA M. Stairs Ind ADNO - Communication N. Comprehension (B) Ind Ind O. Expression (B) Ind Ind - Social Cognition P. Social Interaction Ind Ind Q. Problem Solving Ind Ind R. Memory Ind Ind - Endurance Fair - Balance Fair - Safety Awareness Fair CURRENT FUNC. DEFICITS: Balance, Locomotion, Endurance, Safety Awareness, Transfers Control, and Self-Care THERAPY NOTES FROM ACUTE CARE: Attached. SPECIAL NEEDS: - Safety Concerns Skin breakdown precautions needed due to skin breakdown risk PRECAUTIONS: - Fall Precaution Bed and chair alarm PATIENT NEEDS ACTIVE AND ONGOING THERAPEUTIC INTERVENTION OF MULTIPLE THERAPY DISCIPLINES, INCLUDING: - Occupational Therapy Evaluate and Treat. - Speech Therapy Memory Strategies. Speech Intelligibility Training. - Physical Therapy Evaluate and Treat. PATIENT NEEDS CLOSE MEDICAL SUPERVISION BY A REHABILITATION PHYSICIAN FOR: Bowel and Bladder Management Coordination of Treatment Team Medical and Co-Morbidity Management Pain Management Wound Care DVT Management Post-Op Complications PATIENT REQUIRES 24X7 REHAB NURSING FOR MEDICAL AND FUNCTIONAL MGT. OF THE FOLLOWING DEFICITS: ADL's Ambulation Bowel and Bladder Management Communication Disease Management Medication Management Patient/Family Education Providing Safe Environment Skin Integrity Transfers Pain Management PATIENT REQUIRES INTENSIVE, COORDINATED INTERDISCIPLINARY APPROACH TO REHAB: Arranging Home Equipment/Services Discharge Planning Family Intervention/Training Hide Sorter/Case Management PATIENT REHAB POTENTIAL: Expected level of measurable improvement will be of a practical value to patient's functional capacit y or adaptations to impairments Has a viable Discharge Plan Medically appropriate; condition is sufficiently stable to participate in intensive rehab program Patient is able and expected to receive 3 hours of individualized therapy daily on at least 5 of ever y 7 days Patient's prognosis for significant practical improvement within a reasonable period of time appears Good DISCHARGE PLAN: - Estimated Length of Stay (days) 13. - Consensus on plan Discharge plan has been discussed with primary caregiver. Patient/Family is in agreement with the erma n. Primary caregiver is in agreement with the plan. - Patient/Family Goals Return home with assistance. - Planned Living Setting Upon Discharge Home, to live with Family/Relatives. RECOMMENDED CARE LEVEL: IRF RECOMMENDATION DETAILS: Recommended Admission to Comprehensive Rehabilitation Program to Increase Functional [facility] SCREENER'S COMPLETENESS CONFIRMATION: - Screening Confirmation The patient data collection on this preadmission screening form is finished PHYSICIANS REVIEW AND ADMISSION DETERMINATION Admit - Based on my review of the Pre-Admission Screening results, in my medical judgment and experie nce, I concur with the findings and recommend admission to [facility], as this patient requires an IRF level of care. SIGNATURE PANEL: Clinical Liaison - [electronically] signed by Vee Bowles on 11/22/2017 at 11:16 (CDT) Physician Reviewer - [electronically] signed by Dr. Edilberto Colbert M.D. on 11/22/2017 at 13:40 (CDT )
--- OUTSIDE RECORDS SUMMARY | 2017-11-22 22:23 | XMS REPORT ---
[...] Date Date Metoprolol [facility] 07908574400 50 MG Orally Active 1 tablet Tartrate Twice a day with food Symbicort [facility] 29412554885 160-4.5 MCG/ACT Active 2 puffs Inhalation Twice a day Aspirin [facility] 44621256329 325 MG Orally Active 1 tablet Once a day Pentoxifylline ER [facility] 75838948065 400 MG Orally Active 1 tablet Twice a day with meals Topiramate [facility] 57382284284 25 MG Orally Active 1 tablet Twice a day ProAir HFA [facility] 84124614227 108 (90 Base) Active 2 puffs as MCG/ACT needed Inhalation every 6 hrs Cardizem LA [facility] 47644882367 180 MG Orally Active 1 tablet Once a day Losartan [facility] 20203427226 50MG Orally Active TAKE ONE Potassium Once a day TABLET BY MOUTH ONCE DAILY Senokot S [facility] 65192031815 8.6-50 MG Active 1 tablet Orally Once a in the day evening as needed Perforomist [facility] 35756899445 20 MCG/2ML Active 2 ml Inhalation Twice a day Xarelto [facility] 66732159164 15 MG Orally Active 1 tablet Once a day with food Results No Known Results Summary Purpose eClinicalWorks Submission
[2017-11-22] MEDS ORDERED: MAGNES/ALUMIN/SIMET 30ML UCUP PO PRN (22:24)
[2017-11-22] MEDS ORDERED: ACETAMINOPHEN 500 MG TAB PO PRN (22:24)
--- OUTSIDE RECORDS SUMMARY | 2017-11-22 22:24 | XMS REPORT ---
[...] Status Dosage System Date Date ProAir HFA [facility] [id number] 108 (90 Base) Active 2 puffs as MCG/ACT needed Inhalation every 6 hrs Lasix [facility] 76476420794 20 MG Orally Active 1 tablet Once a day Cardizem LA [facility] 31012156922 180 MG Orally Active 1 tablet Once a day Spiriva [facility] 85996195343 18 MCG Active 1 capsule HandiHaler Inhalation Once a day Pentoxifylline ER [facility] 19754187745 400 MG Orally Active 1 tablet Twice a day with meals Protonix [facility] 69492508530 40 MG Orally Active 1 tablet Once a day Topiramate [facility] 99022813409 25 MG Orally Active 1 tablet Twice a day Losartan [facility] 97216417929 50MG Orally Active TAKE ONE Potassium Once a day TABLET BY MOUTH ONCE DAILY Xarelto [facility] 50734694168 15 MG Orally Active 1 tablet Once a day with food Metoprolol [facility] 41614718986 50 MG Orally Active 1 tablet Tartrate Twice a day with food Senokot S [facility] 23964254933 8.6-50 MG Active 1 tablet Orally Once a in the day evening as needed Pulmicort [facility] 51617229562 0.25 MG/2ML Active 2 ml Inhalation Once a day Aspirin [facility] 39973295983 325 MG Orally Active 1 tablet Once a day Sinemet [facility] 17187612704 25-100 MG Active 1 tablet Orally Three times a day Symbicort [facility] 62143875471 80-4.5 MCG/ACT Active 2 puffs Inhalation Twice a day Ferrous Sulfate [facility] 02405711143 325 (65 Fe) MG Active 1 tablet Orally TID Results No Known Results Summary Purpose eClinicalWorks Submission
--- OUTSIDE RECORDS SUMMARY | 2017-11-22 22:24 | XMS REPORT ---
[...] Status Dosage System Date Date ProAir HFA [facility] 44790883347 108 (90 Base) Active 2 puffs as MCG/ACT needed Inhalation every 6 hrs Losartan [place] 45358768376 50MG Orally Active TAKE ONE Potassium Once a day TABLET BY MOUTH ONCE DAILY Xarelto [facility] 32011105199 15 MG Orally Active 1 tablet Once a day with food Pulmicort [facility] 89246419090 0.25 MG/2ML Active 2 ml Inhalation Once a day Senokot S [facility] 14089112301 8.6-50 MG Active 1 tablet Orally Once a in the day evening as needed Cardizem LA [facility] 65170019798 180 MG Orally Active 1 tablet Once a day Sinemet [facility] 39905346845 25-100 MG Active 1 tablet Orally Three times a day Protonix [facility] 70224110573 40 MG Orally Active 1 tablet Once a day Spiriva [facility] 59364514478 18 MCG Active 1 capsule HandiHaler Inhalation Once a day Ferrous Sulfate [facility] 04802089031 325 (65 Fe) MG Active 1 tablet Orally TID Metoprolol [facility] 83692723460 50 MG Orally Active 1 tablet Tartrate Twice a day with food Aspirin [facility] 62159056224 325 MG Orally Active 1 tablet Once a day Lasix [facility] 12993496848 20 MG Orally Active 1 tablet Once a day Topiramate [facility] 64283136106 25 MG Orally Active 1 tablet Twice a day Pentoxifylline ER [facility] 12673939746 400 MG Orally Active 1 tablet Twice a day with meals Symbicort [facility] 41446952337 80-4.5 MCG/ACT Active 2 puffs Inhalation Twice a day Results No Known Results Summary Purpose eClinicalWorks Submission
--- OUTSIDE RECORDS SUMMARY | 2017-11-22 22:24 | XMS REPORT ---
[...] End Status Dosage System Date Date Sinemet [facility] 20905136773 25-100 MG Active 1 tablet Orally Three times a day Senokot S [facility] 15643099521 8.6-50 MG Active 1 tablet Orally Once a in the day evening as needed ProAir HFA [facility] 59473732154 108 (90 Base) Active 2 puffs as MCG/ACT needed Inhalation every 6 hrs Xarelto [facility] 27887877701 15 MG Orally Active 1 tablet Once a day with food Topiramate [place] 15502186282 25 MG Orally Active 1 tablet Twice a day Protonix [facility] 98603560102 40 MG Orally Active 1 tablet Once a day Spiriva [facility] 91466346704 18 MCG Active 1 capsule HandiHaler Inhalation Once a day Symbicort [facility] 62870557075 80-4.5 MCG/ACT Active 2 puffs Inhalation Twice a day Pentoxifylline ER [facility] 60857897468 400 MG Orally Active 1 tablet Twice a day with meals Metoprolol [facility] 83496229466 50 MG Orally Active 1 tablet Tartrate Twice a day with food Ferrous Sulfate [facility] 07924968287 325 (65 Fe) MG Active 1 tablet Orally TID Losartan [facility] 23889549340 50MG Orally Active TAKE ONE Potassium Once a day TABLET BY MOUTH ONCE DAILY Pulmicort [facility] 74715498518 0.25 MG/2ML Active 2 ml Inhalation Once a day Aspirin [facility] 23628729324 325 MG Orally Active 1 tablet Once a day Lasix [facility] 73152973635 20 MG Orally Active 1 tablet Once a day Cardizem LA [facility] 36791367588 180 MG Orally Active 1 tablet Once a day Results No Known Results Summary Purpose eClinicalWorks Submission
--- OUTSIDE RECORDS SUMMARY | 2017-11-22 22:24 | XMS REPORT ---
[...] Medications Results No Known Results Summary Purpose [employer] Submission
--- OUTSIDE RECORDS SUMMARY | 2017-11-22 22:24 | XMS REPORT ---
[...] Problem Erectile dysfunction N52.9 Active Assessment [facility], active care Z78.9 Active coordination Problem Mixed [...] Status Dosage System Date Date Matt S [facility] 73537042762 8.6-50 MG Active 1 tablet Orally Once a in the day evening as needed Aspirin [facility] 86606655474 325 MG Orally Active 1 tablet Once a day Cardizem LA [facility] 09287921993 180 MG Orally Active 1 tablet Once a day Losartan [facility] 99939675882 50MG Orally Active TAKE ONE Potassium Once a day TABLET BY MOUTH ONCE DAILY Symbicort [facility] 41509708422 160-4.5 MCG/ACT Active 2 puffs Inhalation Twice a day Xarelto [facility] 83947107661 15 MG Orally Active 1 tablet Once a day with food Perforomist [facility] 02891172877 20 MCG/2ML Active 2 ml Inhalation Twice a day Topiramate [facility] 76904208018 25 MG Orally Active 1 tablet Twice a day Pentoxifylline ER [facility] 44062250637 400 MG Orally Active 1 tablet Twice a day with meals ProAir HFA [facility] 97010431999 108 (90 Base) Active 2 puffs as MCG/ACT needed Inhalation every 6 hrs Metoprolol [facility] 75285887416 50 MG Orally Active 1 tablet Tartrate Twice a day with food Results No Known Results Summary Purpose eClinicalWorks Submission
--- OUTSIDE RECORDS SUMMARY | 2017-11-22 22:24 | XMS REPORT ---
[...] Medications Results No Known Results Summary Purpose [employer] Submission
--- OUTSIDE RECORDS SUMMARY | 2017-11-22 22:24 | XMS REPORT ---
[...] Medications Results No Known Results Summary Purpose [employer] Submission
--- OUTSIDE RECORDS SUMMARY | 2017-11-22 22:24 | XMS REPORT ---
[...] Medications Results No Known Results Summary Purpose [employer] Submission
--- OUTSIDE RECORDS SUMMARY | 2017-11-22 22:24 | XMS REPORT ---
[...] Status Dosage System Date Date Senokot S [facility] 68641135351 8.6-50 MG Active 1 tablet Orally Once a in the day evening as needed Symbicort [facility] 71668212648 80-4.5 MCG/ACT Active 2 puffs Inhalation Twice a day Sinemet [facility] 33376137261 25-100 MG Active 1 tablet Orally Three times a day Ferrous Sulfate [facility] 56023374460 325 (65 Fe) MG Active 1 tablet Orally TID Protonix [facility] 41273583500 40 MG Orally Active 1 tablet Once a day Cardizem LA [facility] 74283918589 180 MG Orally Active 1 tablet Once a day Xarelto [facility] 27928900491 15 MG Orally Active 1 tablet Once a day with food Metoprolol [facility] 91156981626 50 MG Orally Active 1 tablet Tartrate Twice a day with food Topiramate [facility] 62151162387 25 MG Orally Active 1 tablet Twice a day Lasix [facility] 51424011530 20 MG Orally Active 1 tablet Once a day Pentoxifylline ER [facility] 26674663563 400 MG Orally Active 1 tablet Twice a day with meals Pulmicort [facility] 11893547513 0.25 MG/2ML Active 2 ml Inhalation Once a day ProAir HFA [facility] 54904823241 108 (90 Base) Active 2 puffs as MCG/ACT needed Inhalation every 6 hrs Aspirin [facility] 56985323485 325 MG Orally Active 1 tablet Once a day Losartan [facility] 57041540023 50MG Orally Active TAKE ONE Potassium Once a day TABLET BY MOUTH ONCE DAILY Spiriva [facility] 86284325874 18 MCG Active 1 capsule HandiHaler Inhalation Once a day Results No Known Results Summary Purpose eClinicalWorks Submission
--- OUTSIDE RECORDS SUMMARY | 2017-11-22 22:24 | XMS REPORT ---
[...] Medications Results No Known Results Summary Purpose [employer] Submission
--- OUTSIDE RECORDS SUMMARY | 2017-11-22 22:25 | XMS REPORT ---
[...] End Status Dosage System Date Date Protonix [facility] 03175890507 40 MG Orally Active 1 tablet Once a day Lasix [facility] 22104860086 20 MG Orally Active 1 tablet Once a day ProAir HFA [facility] 10697401365 108 (90 Base) Active 2 puffs as MCG/ACT needed Inhalation every 6 hrs Cardizem LA [facility] 46950728077 180 MG Orally Active 1 tablet Once a day Topiramate [facility] 51803783645 25 MG Orally Active 1 tablet Twice a day Aspirin [facility] 66022552818 325 MG Orally Active 1 tablet Once a day Pulmicort [facility] 16095398387 0.25 MG/2ML Active 2 ml Inhalation Once a day Spiriva [facility] 01828190431 18 MCG Active 1 capsule HandiHaler Inhalation Once a day Xarelto [facility] 92388652228 15 MG Orally Active 1 tablet Once a day with food Pentoxifylline ER [facility] 30564664541 400 MG Orally Active 1 tablet Twice a day with meals Ferrous Sulfate [facility] 81926145697 325 (65 Fe) MG Active 1 tablet Orally TID Senokot S [facility] 27575363095 8.6-50 MG Active 1 tablet Orally Once a in the day evening as needed Symbicort [facility] 25209242822 80-4.5 MCG/ACT Active 2 puffs Inhalation Twice a day Losartan [facility] 66217756505 50MG Orally Active TAKE ONE Potassium Once a day TABLET BY MOUTH ONCE DAILY Metoprolol [facility] 40667566953 50 MG Orally Active 1 tablet Tartrate Twice a day with food Sinemet [facility] 80470845005 25-100 MG Active 1 tablet Orally Three times a day Results No Known Results Summary Purpose eClinicalWorks Submission
--- OUTSIDE RECORDS SUMMARY | 2017-11-22 22:25 | XMS REPORT ---
[...] Status Dosage System Date Date Cardi LA [facility] 78194990422 180 MG Orally Active 1 tablet Once a day Symbicort [facility] 83144510371 80-4.5 MCG/ACT Active 2 puffs Inhalation Twice a day Protonix [facility] [id number] 40 MG Orally Active 1 tablet Once a day Senokot S [facility] 13689700664 8.6-50 MG Active 1 tablet Orally Once a in the day evening as needed Sinemet [facility] 31322312925 25-100 MG Active 1 tablet Orally Three times a day Spiriva [facility] 50529755368 18 MCG Active 1 capsule HandiHaler Inhalation Once a day Xarelto [facility] 63598957566 15 MG Orally Active 1 tablet Once a day with food Metoprolol [facility] 31289078670 50 MG Orally Active 1 tablet Tartrate Twice a day with food Pulmicort [facility] 15044727575 0.25 MG/2ML Active 2 ml Inhalation Once a day Ferrous Sulfate [facility] 68614916817 325 (65 Fe) MG Active 1 tablet Orally TID Losartan [facility] 70999941434 50MG Orally Active TAKE ONE Potassium Once a day TABLET BY MOUTH ONCE DAILY Lasix [facility] 74889238290 20 MG Orally Active 1 tablet Once a day Pentoxifylline ER [facility] 76894795423 400 MG Orally Active 1 tablet Twice a day with meals Topiramate [facility] 10546260427 25 MG Orally Active 1 tablet Twice a day ProAir HFA [facility] 19560835183 108 (90 Base) Active 2 puffs as MCG/ACT needed Inhalation every 6 hrs Aspirin [facility] 09828331000 325 MG Orally Active 1 tablet Once a day Results No Known Results Summary Purpose eClinicalWorks Submission
[2017-11-22] MEDS ORDERED: DIPHENHYDRAMINE 25 MG TAB/CAP PO PRN (23:12)
[2017-11-22] MEDS ORDERED: HYDROCODONE/APAP 7.5/325 MG TAB PO PRN (23:25)
[2017-11-23] MEDS: IPRATROPIUM BROM 0.5MG/2.5ML NEB SCH ×4 (02:15→19:24)
[2017-11-23 06:36] LABS: Absolute Lymphocytes (CBC) 1.8 K/uL (0.7-4.9); Absolute Monocytes 0.9 K/uL (0.1-1.3); Absolute Neutrophil 5.3 K/uL (1.8-8.0); Eosinophils % 1.9 % (0-4.4); Hematocrit 32.2 % (39.6-49.0); Lymphocytes % 21.5 % (15.3-44.8); MCH 21.8 pg (27.0-35.0); MCV 69.3 fL (80-100); MPV 9.1 fL (7.6-11.3); Monocytes % 10.8 % (3.3-12.3); RBC Red Blood Cell Count 4.65 M/uL (4.33-5.43)
[2017-11-23] MEDS: PANTOPRAZOLE 40MG TABLET PO SCH (06:46)
[2017-11-23 06:57] LABS: Albumin 2.4 g/dL (3.4-5.0); Magnesium 1.9 mg/dL (1.8-2.4); Potassium 3.2 mmol/L (3.5-5.1); Prealbumin 18.2 mg/dL (20-40)
[2017-11-23 07:27] LABS: Blood Morphology Comment NOTED (NOT SEEN); Platelet Estimate ADEQ; Urine White Blood Cell Casts OK
[2017-11-23 07:28] LABS: Anisocytosis 1+; Hypochromasia 1+; Ovalocytes 1+; Poikilocytosis 1+
[2017-11-23] MEDS: ARFORMOTEROL TARTRATE 15 MCG/2 ML VIAL.NEB NEB SCH ×2 (07:29→19:24)
[2017-11-23] MEDS: BUDESONIDE 0.25 MG/2 ML NEB NEB SCH (07:32)
[2017-11-23] MEDS ORDERED: TIOTROPIUM 5 SPRAYS/INHALER IH SCH ×2 (08:00)
[2017-11-23] MEDS: PENTOXIFYLLINE ER 400 MG TAB PO SCH ×3 (08:30→16:49)
[2017-11-23] MEDS: DILTIAZEM HCL 180 MG SR CAP PO SCH (08:30)
[2017-11-23] MEDS: LOSARTAN POTASSIUM 50 MG TABLET PO SCH (08:30)
[2017-11-23] MEDS: predniSONE 10 MG TAB PO SCH (08:30)
[2017-11-23] MEDS: FERROUS SULFATE 325 MG TAB PO SCH ×3 (08:30→20:44)
[2017-11-23] MEDS: TOPIRAMATE 25 MG TAB PO SCH ×2 (08:30→20:44)
[2017-11-23] MEDS: FUROSEMIDE 40 MG TABLET PO SCH (08:30)
[2017-11-23] MEDS: SUPLENA IMPAIRED RENAL 237 ML CAN PO SCH ×2 (08:30→20:00)
[2017-11-23] MEDS: METOPROLOL TAR 50 MG TAB PO SCH ×2 (08:30→16:50)
[2017-11-23] MEDS: CARBIDOPA/LEVODOPA 25/100 TAB PO SCH ×2 (08:30→20:44)
[2017-11-23] MEDS ORDERED: DOCUSATE NA 100 MG CAP PO ONE (08:46)
--- NOTE | 2017-11-23 16:26 | FAST ---
ENCOUNTER DATE AND TIME: 11/23/2017 08:00 (CDT) NAME MYRA LE DATE OF : 1935 DATE OF ADMISSION: 11/22/2017 22:21 (CDT) PHONE: AGE: 82 SSN# [id number] GENDER: Male ENCOUNTER PHYSICIAN: Dr. Edilberto Colbert M.D. ADMISSION DIAGNOSIS: - Medically Complex Conditions 17 - Other Medically Complex Conditions (17.9) COLON ADENOCARCINOMA. Chronic Renal Disease. COPD. PVD. Parkinson's Disease. EATING: Activity did not occur on this shift EATING - SCORE: 0-UNK GROOMING: Activity did not occur on this shift GROOMING - SCORE: 0-UNK BATHING: Activity did not occur on this shift BATHING - SCORE: 0-UNK DRESSING - UPPER BODY: Activity did not occur on this shift Patient is not dressing in public clothing ARTICLES SCORE Total number of steps: 0 DRESSING - UPPER BODY - SCORE: 0-UNK DRESSING - LOWER BODY: Activity did not occur on this shift Patient is not dressing in public clothing ARTICLES SCORE Total number of steps: 0 DRESSING - LOWER BODY - SCORE: 0-UNK TOILETING: Activity did not occur on this shift TOILETING - SCORE: 0-UNK BLADDER MANAGEMENT: Activity did not occur on this shift BLADDER MANAGEMENT - SCORE: 7-IND BOWEL MANAGEMENT: Activity did not occur on this shift BOWEL MANAGEMENT - SCORE: 7-IND TRANSFERS: BED, CHAIR, WHEELCHAIR: TRANSFERS: BED, CHAIR, WHEELCHAIR - STEP 1: Does the patient require assistance with bed, chair, or wheelchair transfers? Yes. TRANSFERS: BED, CHAIR, WHEELCHAIR - STEP 2: Does the patient require the assistance of a helper? Yes. TRANSFERS: BED, CHAIR, WHEELCHAIR - STEP 3: How much assistance does the patient require from the helper? Lifting of the patient TRANSFERS: BED, CHAIR, WHEELCHAIR - STEP 4: Does the helper lift the patient ONLY up? ONLY down? Up AND Down? ONLY up. TRANSFERS: BED, CHAIR, WHEELCHAIR - SCORE: 3-MOD TRANSFERS: TOILET: Activity did not occur on this shift TRANSFERS: TOILET - SCORE: 0-UNK TRANSFERS: SHOWER: Activity did not occur on this shift TRANSFERS: SHOWER - SCORE: 0-UNK TRANSFERS: TUB: Activity did not occur on this shift TRANSFERS: TUB - SCORE: 0-UNK LOCOMOTION: WALK: Patient walks less than 50 feet LOCOMOTION: WALK - SCORE: 1-DEP LOCOMOTION: WHEELCHAIR: LOCOMOTION: WHEELCHAIR - STEP 1: Does the patient need help to go 150 feet in a wheelchair? Yes. LOCOMOTION: WHEELCHAIR - STEP 2: How much assistance does the patient need from the helper? Patient goes less than 150 feet - but more than 50 feet - with the assistance of only one helper LOCOMOTION: WHEELCHAIR - SCORE: 2-MAX LOCOMOTION: STAIRS: Activity did not occur on this shift LOCOMOTION: STAIRS - SCORE: 0-UNK COMPREHENSION: COMPREHENSION - SCORE: 0-UNK EXPRESSION EXPRESSION - SCORE: 0-UNK SOCIAL INTERACTION: SOCIAL INTERACTION - SCORE: 0-UNK PROBLEM SOLVING: PROBLEM SOLVING - SCORE: 0-UNK MEMORY: MEMORY - SCORE: 0-UNK SIGNATURE PANEL: The following modified sections: Transfers: Bed, Chair, Wheelchair - Score, Transfers: Toilet - Score , Locomotion: Walk - Score, Locomotion: Wheelchair - Score, Locomotion: Stairs - Score were [electron ically] signed by Akbar Brown PT on TueNov 23 2017 16:25:41 T-0500 (Central Daylight Time)
[2017-11-23] MEDS: RIVAROXABAN 15 MG TABLET PO SCH (16:49)
[2017-11-23] MEDS: GABAPENTIN 300 MG CAP PO SCH ×2 (16:49→20:44)
[2017-11-23] MEDS: LIDOCAINE 5% PATCH TOP SCH (16:50)
--- NOTE | 2017-11-23 17:16 | R.HP ---
FACILITY: [facility] ENCOUNTER DATE AND TIME: 11/23/2017 17:11 (CDT) MR#: [id number] NAME MYRA LE ADDRESS: [place] [address] CITY: [place] [address] [address] PHONE: DATE OF : 1935 AGE: 82 SSN# [id number] GENDER: Male DEXTERITY Right-handed MARITAL STATUS [facility]ACE [facility] PRE-HOSPITAL LIVING SETTING 01 - Home (private home/apt. board/care, assisted living, care home, transitional living) PRE-HOSPITAL LIVING WITH Family/Relatives ENCOUNTER PHYSICIAN: Dr. Edilberto Colbert M.D. REFERRING DOCTOR: mralon Arredondo DATE OF ADMISSION: 11/22/2017 22:21 (CDT) REFERRING FACILITY [facility] HOME TYPE AND DETAILS: Type of home: single family house # of levels in the residence: 1 # of steps within the residence: 0 # of steps to enter the residence: 0 ADMISSION DIAGNOSIS: COLON ADENOCARCINOMA Chronic Renal Disease COPD PVD Parkinson's Disease ONSET DATE: 11/10/2017 PRIMARY DIAGNOSIS-RELATED SURGERIES: RIGHT HEMICOLECTOMY SECONDARY/COMORBID DIAGNOSES (TIERED): - N/A COPD Atrial Fibrillation Hypertension Osteoarthritis Chronic pain syndrome Hyperlipidemia Seasonal allergic rhinitis Erectile Dysfucntion Hydrocele Chronic Kidney Disease, Stage 3 Parkinson's Disease Tremor Anemia Lower GI Bleed Colonic Mass PVD HISTORY OF PRESENT ILLNESS (HPI): Pt. is a 82 yo Right-handed white male. On 11/10/2017 he was admitted to [facility] with diagnosis COLON ADENOCARCINOMA . His impairment category is Medically Complex Conditions 17 - Other Medically Complex Conditions (17. 9). Pre-morbidly, Pt. was independent/mod-I in Social Cognition, Self-Care, Locomotion, Sphincter Control , Transfers Control, and Communication; and he had good Sphincter Control. Currently, he has deficits of Balance, Locomotion, Endurance, Safety Awareness, Transfers Control, an d Self-Care. Pt. is now referred to [facility] for acute in-patient rehabilitation in order to maximize patient's functional independence in activities of daily living, strength, ROM, and mobi lity. Patient has realistic goal of being discharged at assistance level 6-Katheryn to reside at Home with Fam nahomy/Relatives. MEDICATION ALLERGIES: No Known Drug Allergies (NKDA) ENVIRONMENTAL ALLERGIES: None Known - Substance Allergies None Known - Other Allergies None Known PAST MEDICAL HISTORY: Anemia Atrial Fibrillation COPD Chronic Kidney Disease, Stage 3 Chronic pain syndrome Colonic Mass Hydrocele Hyperlipidemia Hypertension Lower GI Bleed Osteoarthritis PVD Parkinson's Disease Seasonal allergic rhinitis Tremor PAST SURGICAL HISTORY: Hernia repair FAMILY HISTORY: Family history is not contributory. SOCIAL HISTORY: - Home Living Family/Relatives REVIEW OF SYSTEMS: - Gen No Chills No Fatigue No Fever - Eyes No Double Vision No itchiness - ENMT No Difficulty Swallowing - CVS No Chest Discomfort No Chest Pain Fatigue No Weight Gain - Resp No Cough Shortness of Breath - GI Continent No Abdominal Pain No Constipation No Diarrhea - Continent No Kidney Pain No Painful Urination No Urinary Urgency - MSK Joint Pain No Muscle Cramps Stiffness - Skin No Itching No Rash No Suspicious Lesions - Neuro Coordination Difficulty No Difficulty with Concentration No Memory Loss No Seizures Weakness - Psych No Anxiety No Depression No HIV Exposure No Persistent Infections No Seasonal Allergies - Endo No Cold/Heat Intolerance No Excessive Hunger No Excessive Thirst No Excessive Urination PHYSICAL EXAM - Gen Alert and awake Lying in bed No apparent distress Oriented to: person, time, and place - Skin No skin breakdown. No abnormalities - Eyes No abnormalities - ENMT No abnormalities - Neck No abnormalities - CVS RRR - Chest Clear - Abd Soft - GI Non distended Deferred - No abnormalities - Ext Mild bilateral lower extremity edema. - MSK 4+/5 weakness in both lower extremities. - Neuro No focal deficits - Psych No abnormalities VITAL SIGNS Temperature: 98.1 F SBP/DBP: 132/91 Pulse: 82 Resp: 16 NURSING: - Shower allowing shower PRECAUTIONS: - Fall Precaution Bed and chair alarm ACTIVITIES OOB only with supervision FUNCTIONAL STATUS: - Self-Care A. Eating Ind Ind B. Grooming Ind sup C. Bathing Ind Magaly D. Dressing - Upper Ind Magaly E. Dressing - Lower Ind Magaly F. Toileting Ind Magaly - Sphincter Control G: Bladder control Ind Ind H: Bowel control Ind Ind - Transfers Control I. Bed/Chair/Wheelchair Ind modA J. Toilet Ind modA K. Tub/Shower Ind ADNO - Locomotion L. Walk/Wheelchair (B) Ind modA M. Stairs Ind ADNO - Communication N. Comprehension (B) Ind Ind O. Expression (B) Ind Ind - Social Cognition P. Social Interaction Ind Ind Q. Problem Solving Ind Ind R. Memory Ind Ind - Endurance Fair - Balance Fair - Safety Awareness Fair CURRENT FUNC. DEFICITS: Balance, Locomotion, Endurance, Safety Awareness, Transfers Control, and Self-Care ASSESSMENT: Pt. is a 82 yo Right-handed white male.On 11/10/2017 he was admitted to [facility] with diagnosis COLON ADENOCARCINOMA.His impairment category is Medically Complex Conditions 17 - Other Medically Complex Conditions (17.9).Pre-morbidly, Pt. was independent/mod-I in Social Cognitio n, Self-Care, Locomotion, Sphincter Control, Transfers Control, and Communication; and he had good Sp hincter Control.Currently, he has deficits of Balance, Locomotion, Endurance, Safety Awareness, Trans fers Control, and Self-Care.Pt. is now referred to [facility] for acute in-pat ient rehabilitation in order to maximize patient's functional independence in activities of daily maria luisa ing, strength, ROM, and mobility.- Rehab Goal Patient has realistic goal of being discharged at assistance level 6-Katheryn to reside at Home with Fam nahomy/Relatives. REHAB PLAN: - Physical Therapy Gait dysfunction - to improve, our physical therapists will perform initial evaluation of pt's status upon admission and devise an individualized program for Gait Training, and Wheel Chair mobility Inability to transfer - to improve, our physical therapists will perform initial evaluation of pt's s tatus upon admission and devise an individualized program for Bed mobility Need for home safety evaluation - to improve, our physical therapists will perform initial evaluation of pt's status upon admission and devise an individualized program for Home Evaluation Need in caregiver upon discharge - to improve, our physical therapists will perform initial evaluatio n of pt's status upon admission and devise an individualized program for Caregiver Training New precaution - to improve, our physical therapists will perform initial evaluation of pt's status u naheed admission and devise an individualized program for Patient precaution education Edema - to improve, our physical therapists will perform initial evaluation of pt's status upon admi ssion and devise an individualized program for Elevation Training, and Lymphedema Therapy Pain - to improve, our physical therapists will perform initial evaluation of pt's status upon admiss ion and devise an individualized program for Modalities Poor balance - to improve, our physical therapists will perform initial evaluation of pt's status upo n admission and devise an individualized program for Balance Training Poor endurance - to improve, our physical therapists will perform initial evaluation of pt's status u naheed admission and devise an individualized program for Endurance Training Weakness - to improve, our physical therapists will perform initial evaluation of pt's status upon ad mission and devise an individualized program for Aquatic Therapy, Neuromuscular Reeducation, and Stre ngthening Achieving independence - to improve, our physical therapists will perform initial evaluation of pt's status upon admission and devise an individualized program for Community Reintegration Activities - Occupational Therapy ADL deficits - to improve, our occupation therapists will perform initial evaluation of pt's status u naheed admission and devise an individualized program for Bathing, Bed mobility, Community Reintegration , Cooking, Dressing, Eating, Fine Motor Skills, Grooming, Homemaking, Kitchen Mobility, Laundry, Edilma ent Education, Safety Awareness, Splinting - Positioning, Transfers(Toilet, Tub, Shower), and Wheel C hair Management Need for career coach - to improve, our occupation therapists will perform initial evaluation of pt's s tatus upon admission and devise an individualized program for Caregiver Training Weakness - to improve, our occupation therapists will perform initial evaluation of pt's status upon admission and devise an individualized program for Aquatic Therapy, Balance, Endurance, UE ROM, and U E strengthening MEDICAL PLAN: - Diet Type Start Low Fiber - Diet - Liquid Texture Start Regular - Tube Feed Start N/A - Fall Precaution Bed and chair alarm - Diet - Solid Texture Start Regular Start GI Soft - Shower shower DISCHARGE PLAN: - Estimated Length of Stay (days) 13. - Consensus on plan Discharge plan has been discussed with primary caregiver. Patient/Family is in agreement with the erma n. Primary caregiver is in agreement with the plan. - Patient/Family Goals Return home with assistance. - Planned Living Setting Upon Discharge Home, to live with Family/Relatives. SIGNATURE PANEL: (CDT)
--- NOTE | 2017-11-23 17:20 | PAPE ---
PATIENT: [facility] MR# [id number] REFERRING DOCTOR marlon Arredondo EVALUATION DATE AND TIME 11/23/2017 17:17 (CDT) NAME MYRA LE DATE OF 1935 AGE 82 PHONE SSN# [id number] GENDER male EVALUATING PHYSICIAN Dr. Edilberto Colbert M.D. ADMISSION DIAGNOSIS: COLON ADENOCARCINOMA Chronic Renal Disease COPD PVD Parkinson's Disease ONSET DATE 11/10/2017 SECONDARY/COMORBID DIAGNOSES TIERED: - N/A COPD Atrial Fibrillation Hypertension Osteoarthritis Chronic pain syndrome Hyperlipidemia Seasonal allergic rhinitis Erectile Dysfucntion Hydrocele Chronic Kidney Disease, Stage 3 Parkinson's Disease Tremor Anemia Lower GI Bleed Colonic Mass PVD POST-ADMISSION FUNCTIONAL/MEDICAL STATUS: - Bladder Same accident frequency: Ind - No accidents in the past 7 days - Bowel Same accident frequency: Ind - No accidents in the past 7 days - Walking Same score based on distance walked: 1(<=50ft) - Wheelchair Same score based on distance traveled: 0(N/A) STATUS CHANGE EVALUATION: No change in Functional or Medical Status is identified compared with Pre-Admission screening. PATIENT NEEDS CLOSE MEDICAL SUPERVISION BY A REHABILITATION PHYSICIAN FOR: Bowel and Bladder Management Coordination of Treatment Team Medical and Co-Morbidity Management Pain Management Wound Care DVT Management Post-Op Complications PATIENT REQUIRES 24X7 REHAB NURSING FOR MEDICAL AND FUNCTIONAL MGT. OF THE FOLLOWING DEFICITS: ADL's Ambulation Bowel and Bladder Management Communication Disease Management Medication Management Patient/Family Education Providing Safe Environment Skin Integrity Transfers Pain Management PATIENT REQUIRES INTENSIVE, COORDINATED INTERDISCIPLINARY APPROACH TO REHAB: Arranging Home Equipment/Services Discharge Planning Family Intervention/Training Veterinarian/Case Management LIST OF IDENTIFIED AND POTENTIAL PROBLEMS: Alteration in leisure activities Bladder, Incontinence Blood Pressure, Hypertension/hypotension Issues Bowel, Incontinence Infection, Actual or Potential Mobility Impaired Pain, Alteration in Comfort Self Care Deficit Skin Integrity, Actual or Potential Urinary Tract Infection (UTI), Actual or Potential RISK FOR COMPLICATIONS - COPD Acute Resp failure. Pneumonia. Resp. Arrest. - Atrial Fibrillation CVA. Heart failure. Limb embolus. - Hypertension CVA. Hypotension. MS. TIA. - Osteoarthritis Falls. - PVD Amputation. Gangrene. Infection. Ischemic ulcers. Sepsis. Wounds. INTERVENTIONS - COPD 02 sats. Medications. Nebulizers. Oxygen. Resp. therapy. X-rays. - Atrial Fibrillation Anticoagulation. Medications. VS. - Hypertension - Osteoarthritis Energy conservation. Exercise. Joint Protection. Medications. Pain management. - PVD Dumont exercises. Medications. PATIENT COULD BE AT RISK FOR COMPLICATIONS FROM ADVERSE MEDICAL CONDITIONS DUE TO HIS/HER COMORBIDITI ES AND THE RIGORS OF THE INTENSIVE REHABILLITATION PROGRAM. METHODS OR INTERVENTIONS TO AVOID COMPLIC ATIONS INCLUDE: - Deep Vein Thrombosis (DVT) Prophylaxis therapy for prevention . Sequential Compression Device (SCD). TE D Hose. - Bleeding Assess lab values and manage abnormalities. Nursing to teach precautions for anti-coagulation therapy . Wound to be assessed every shift. - Infection Clinical staff to assess and manage the signs and symptoms of infection including fever, redness, war mth, etc. - Urinary Tract Infection - Falls Patient will be evaluated for Fall Precautions and will be placed on Fall Precautions as indicated pe r protocol. - Skin Breakdown Nursing will assess skin daily using assessment tool and will place on Skin Breakdown Precautions as indicated per protocol. - Pain Clinical staff may employ non-medication methods such as massage, distraction, decrease stimulus, etc . as needed. Clinical staff will assess patient's pain level every shift per protocol to assess and e nsure pain management effectiveness. Medications will be given and the pain level re-assessed. PRELIMINARY PLAN OF CARE: - Physical Therapy Patient needs Physical Therapy for a daily minimum of 1.5 hours at least 5 out of 7 days, to improve: Mobility, Strengthening, Transfers, Stretching, ROM, Endurance, Ability to manage stairs, Gait, and Balance. - Rehabilitation Nursing Patient requires 24x7 Rehabilitation Nursing for: Pain Issues, Identifying and preventing risk factor s, Monitoring and reporting current medical conditions, Assisting with ambulation and transfer, Rhiannon ting with all ADL-s, Teaching patients about disease process and medications, Family teaching, Provid ing safe environment, Bowel and Bladder Issues, Skin Integrity, and Medication Management. Patient needs Veterinarian and/or Case Management for: Discharge Planning, Arranging Home Equipmen t or Services, and Family Interventions. - Dietary and Nutrition Services Patient needs Dietary and Nutrition Services for: Adequate Nutrition, Nutritional Supplements, and Nu tritional Education. - Occupational Therapy Patient needs Occupational Therapy for a daily minimum of 1.5 hours at least 5 out of 7 days, to impr ove Activities of Daily Living, including: Eating, Grooming, Bathing, Dressing, Toileting, Toilet Tra nsfers, Community Reintegration, Higher functional activities, Adaptive Equipment, Splinting, Househo ld Tasks, and Other activities as determined. POTENTIAL FUNCTIONAL GOALS FOR PATIENT TO ACHIEVE BY DISCHARGE: - Safety Precaution Patient will remain free from falls or injury at time of discharge. - Bed Mobility Patient will perform bed mobility at 4-Magaly level of assistance. - Transfers Patient will complete transfers from bed to chair at 4-Magaly level of assistance. - Mobility Patient will ambulate 150 ft with 4-Magaly level of assistance with RW. PATIENT REHAB POTENTIAL Expected level of measurable improvement will be of a practical value to patient's functional capacit y or adaptations to impairments Has a viable Discharge Plan Medically appropriate; condition is sufficiently stable to participate in intensive rehab program Patient is able and expected to receive 3 hours of individualized therapy daily on at least 5 of ever y 7 days Patient's prognosis for significant practical improvement within a reasonable period of time appears Good DISCHARGE PLAN: - Estimated Length of Stay (days) 13. - Consensus on plan Discharge plan has been discussed with primary caregiver. Patient/Family is in agreement with the erma n. Primary caregiver is in agreement with the plan. - Patient/Family Goals Return home with assistance. - Planned Living Setting Upon Discharge Home, to live with Family/Relatives. CONCLUSION ON REHABILITATION NECESSITY: I have evaluated patient's pre-admission functional status and, comparing it to the patient's post-ad mission functional status now, I conclude that the pre-admission assessment was accurate. Patient's c ondition on admission supports the medical necessity of admission to [facility]. It is safe to proceed with patient's therapy program. SIGNATURE PANEL: (CDT)
[2017-11-23] MEDS: ONDANSETRON 4 MG (ODT) TAB PO PRN (20:42)
[2017-11-24 00:23] LABS: Urine Appearance CLEAR; Urine Bilirubin NEGATIVE (NEG); Urine Blood NEGATIVE (NEG); Urine Color YELLOW; Urine Glucose NEGATIVE (NEG); Urine Protein NEGATIVE (NEG); Urine Urobilinogen 0.2 mg/dL (0.2-1.0)
[2017-11-24 00:45] LABS: Urine Bacteria <20 /HPF (NONE SEEN); Urine Culture Reflex Order NOT NEEDED; Urine RBC NONE SEEN /HPF (NONE SEEN)
[2017-11-24] MEDS: IPRATROPIUM BROM 0.5MG/2.5ML NEB SCH ×4 (01:35→19:46)
--- NOTE | 2017-11-24 03:31 | FAST ---
SHIFT START DATE/TIME: 11/23/2017 19:00 (CDT) SHIFT END DATE/TIME: 11/24/2017 07:00 (CDT) NAME MYRA LE DATE OF : 1935 DATE OF ADMISSION: 11/22/2017 22:21 (CDT) PHONE: AGE: 82 SSN# [id number] GENDER: Male ENCOUNTER PHYSICIAN: Dr. Edilberto Colbert M.D. ADMISSION DIAGNOSIS: - Medically Complex Conditions 17 - Other Medically Complex Conditions (17.9) COLON ADENOCARCINOMA. Chronic Renal Disease. COPD. PVD. Parkinson's Disease. EATING: Activity did not occur on this shift EATING - SCORE: 0-UNK GROOMING: Activity did not occur on this shift GROOMING - SCORE: 0-UNK BATHING: Activity did not occur on this shift BATHING - SCORE: 0-UNK DRESSING - UPPER BODY: Patient is not dressing in public clothing ARTICLES SCORE Total number of steps: 0 DRESSING - UPPER BODY - SCORE: 0-UNK DRESSING - LOWER BODY: Patient is not dressing in public clothing ARTICLES SCORE Total number of steps: 0 DRESSING - LOWER BODY - SCORE: 0-UNK TOILETING: TOILETING - STEP 1: Does the patient require assistance with toileting? Yes. TOILETING - STEP 2: Does the patient require the assistance of a helper? Yes. TOILETING - STEP 3: How much assistance does the patient require from the helper? Hands-on assistance from the helper TOILETING - STEP 4: Of the 3 tasks: 1) Adjusting clothing prior to use, 2) Cleansing of perineal area, 3) Adjusting clot flor after use; How many tasks does the patient perform WITHOUT assistance of the helper? No tasks; h glenroy performs all three tasks TOILETING - SCORE: 1-DEP BLADDER MANAGEMENT: BLADDER MANAGEMENT - STEP 1: Does the patient control the bladder completely and intentionally without equipment or devices or med ications, and is always continent? No. BLADDER MANAGEMENT - STEP 2: Does the patient require the assistance of a helper? Yes. BLADDER MANAGEMENT - STEP 3: How much assistance does the patient require from the helper? Patient requires contact assistance fro m the helper BLADDER MANAGEMENT - STEP 4: How much contact assistance does the patient require from the helper? Patient requires minimal assist ance to maintain an external device - by positioning, and the patient performs 75% or more of bladder management tasks, while the helper provides less than 25% of the assistance to position patient on / off bedpan BLADDER MANAGEMENT - SCORE: 4-MIN BOWEL MANAGEMENT: Activity did not occur on this shift BOWEL MANAGEMENT - SCORE: 7-IND TRANSFERS: BED, CHAIR, WHEELCHAIR: Activity did not occur on this shift TRANSFERS: BED, CHAIR, WHEELCHAIR - SCORE: 0-UNK TRANSFERS: TOILET: Activity did not occur on this shift TRANSFERS: TOILET - SCORE: 0-UNK TRANSFERS: SHOWER: Activity did not occur on this shift TRANSFERS: SHOWER - SCORE: 0-UNK TRANSFERS: TUB: Activity did not occur on this shift TRANSFERS: TUB - SCORE: 0-UNK LOCOMOTION: WALK: Activity did not occur on this shift LOCOMOTION: WALK - SCORE: 0-UNK LOCOMOTION: WHEELCHAIR: Activity did not occur on this shift LOCOMOTION: WHEELCHAIR - SCORE: 0-UNK COMPREHENSION: COMPREHENSION: TYPE: Both COMPREHENSION - STEP 1: Does the patient require help to understand complex and abstract ideas (such as current events, finan bradley, discharge planning, medical issues, relationships, etc)? Yes. COMPREHENSION - STEP 2: Does the patient require help to understand questions or statements about basic needs or ideas (such as hunger, thirst, sleep, safety, daily schedule, room location, or discomfort) half or more of the t araceli? No. COMPREHENSION - STEP 3: How often does the patient need help to understand directions and conversation about basic needs? 10% - 24% of the time COMPREHENSION - SCORE: 4-MIN EXPRESSION EXPRESSION: TYPE: Both EXPRESSION - STEP 1: Does the patient require help expressing complex and abstract ideas (such as current events, finances , discharge planning, medical issues, relationships, etc)? No. EXPRESSION - STEP 2: Does the patient need extra time, require an assistive device (such as augmentive communication syste m or a communication board), OR does s/he have mild difficulty expressing complex and abstract ideas (including mild dysarthria or mild word-find problems)? Yes. EXPRESSION - SCORE: 6-NELLIE SOCIAL INTERACTION: SOCIAL INTERACTION - STEP 1: Does the patient require a helper to interact with others in social and therapeutic situations? No. SOCIAL INTERACTION - STEP 2: Does the patient need extra time in social situations, OR does s/he interact with staff, other patien ts, and family members ONLY in structured environments, OR does s/he require medication for social in teraction? Yes, patient needs extra time SOCIAL INTERACTION - SCORE: 6-NELLIE PROBLEM SOLVING: PROBLEM SOLVING - STEP 1: Does the patient need help to solve complex problems such as managing a checking account or confronti ng interpersonal problems? Yes. PROBLEM SOLVING - STEP 2: Does the patient solve basic routine problems half or more of the time? Yes. PROBLEM SOLVING - STEP 3: How often does the patient need help to solve basic routine problems? 10%-24% of the time PROBLEM SOLVING - SCORE: 4-MIN MEMORY: MEMORY - STEP 1: Does the patient need help to remember frequently encountered people, daily routines, and executing r equests? No. MEMORY - STEP 2: Does the patient have slight difficulty recognizing frequently encountered people, daily routines, or executing requests without the need for repetition or using self-initiated or environmental cues to remember? Yes. MEMORY - SCORE: 6-NELLIE SIGNATURE PANEL: The following modified sections: Eating - Score, Grooming - Score, Dressing - Upper Body - Score, Jewel ssing - Lower Body - Score, Toileting - Score, Bladder Management - Score, Bowel Management - Score, Transfers: Bed, Chair, Wheelchair - Score, Transfers: Toilet - Score, Transfers: Shower - Score, Valdez sfers: Tub - Score, Locomotion: Walk - Score, Locomotion: Wheelchair - Score, Comprehension - Score, Expression - Score, Social Interaction - Score, Problem Solving - Score, Memory - Score were [electro nically] signed by Margarita Raza CNA on TueNov 24 2017 03:31:28 T-0500 (Central Daylight Time)
[2017-11-24 06:57] LABS: Absolute Lymphocytes (CBC) 2.2 K/uL (0.7-4.9); Absolute Neutrophil 7.7 K/uL (1.8-8.0); Basophils % 0.6 % (0-1.3); Eosinophils % 0.9 % (0-4.4); Lymphocytes % 19.8 % (15.3-44.8); MCH 21.5 pg (27.0-35.0); MCV 69.5 fL (80-100); MPV 9.2 fL (7.6-11.3); Monocytes % 9.3 % (3.3-12.3)
[2017-11-24 07:08] LABS: Potassium 3.6 mmol/L (3.5-5.1)
[2017-11-24] MEDS: PANTOPRAZOLE 40MG TABLET PO SCH ×2 (07:08→15:48)
[2017-11-24] MEDS: BUDESONIDE 0.25 MG/2 ML NEB NEB SCH (07:19)
[2017-11-24] MEDS: ARFORMOTEROL TARTRATE 15 MCG/2 ML VIAL.NEB NEB SCH ×2 (07:19→19:46)
[2017-11-24] MEDS: LOSARTAN POTASSIUM 50 MG TABLET PO SCH (08:00)
[2017-11-24] MEDS: FUROSEMIDE 40 MG TABLET PO SCH (08:00)
[2017-11-24] MEDS: SUPLENA IMPAIRED RENAL 237 ML CAN PO SCH ×2 (08:00→20:00)
[2017-11-24] MEDS: METOPROLOL TAR 50 MG TAB PO SCH ×2 (08:00→16:59)
[2017-11-24] MEDS: DILTIAZEM HCL 180 MG SR CAP PO SCH (08:00)
[2017-11-24] MEDS: LIDOCAINE 5% PATCH TOP SCH (08:51)
[2017-11-24] MEDS: GABAPENTIN 300 MG CAP PO SCH ×2 (08:52→20:48)
[2017-11-24] MEDS: FERROUS SULFATE 325 MG TAB PO SCH ×3 (08:52→20:48)
[2017-11-24] MEDS: TOPIRAMATE 25 MG TAB PO SCH ×2 (08:55→20:48)
[2017-11-24] MEDS: CARBIDOPA/LEVODOPA 25/100 TAB PO SCH ×2 (08:56→20:48)
[2017-11-24] MEDS: PENTOXIFYLLINE ER 400 MG TAB PO SCH ×3 (08:56→16:58)
[2017-11-24] MEDS: predniSONE 10 MG TAB PO SCH (08:56)
[2017-11-24] MEDS: ONDANSETRON 4 MG (ODT) TAB PO PRN (09:04)
--- NOTE | 2017-11-24 10:02 | P.PN ---
Subjective Date of Service: 11/24/17 Subjective: No new changes (tolerating diet, good bowel function, loose BM, had episode of blood tinged emesis this AM) Physical Examination - Vital Signs Temperature: 96.8 F Blood Pressure: 90/50 Pulse: 107 Respirations: 16 Pulse Ox (%): 92 - Physical Exam General: Alert, In no apparent distress, Cooperative HEENT: Mucous membr. moist/pink Respiratory: Clear to auscultation bilaterally, Normal air movement Cardiovascular: Normal S1 S2 Gastrointestinal: Soft and benign, Other (incision clean and dry) Neurological: Normal speech - Studies Laboratory Data (last 24 hrs) 11/24/17 06:11: WBC 11.1 H D, Hgb 9.9 L, Hct 32.0 L, Plt Count 308 11/24/17 06:11: Sodium 138, Potassium 3.6, BUN 35 H, Creatinine 1.70 H, Glucose 97 Assessment And Plan - Plan S/P Right hemicolectomy for colon cancer 1.) Gastritis - likely stress related will increase PO omeprazole, start carafate 2.) continue current diet 3.) change norco to 5/325 Q6 prn 4.) hold antihypertensives for now 5.) continue medical management per Dr. Colbert
--- NOTE | 2017-11-24 10:34 | RAD REPORT ---
EXAM DESCRIPTION: Betty Single View11/24/2017 10:16 am CLINICAL HISTORY: Shortness of breath COMPARISON: 11/18/2017 FINDINGS: The bilateral pulmonary opacities have partially resolved. Small pleural effusions are abdullahi pected. The heart remains enlarged IMPRESSION: Partial resolution in bilateral pulmonary opacities probably represent mild pulmonary ed antony
[2017-11-24] MEDS: HYDROCODONE/APAP 5/325 MG TAB PO PRN ×2 (11:22→23:16)
[2017-11-24] MEDS: SUCRALFATE 1 GM TABLET PO SCH ×3 (12:08→20:48)
--- NOTE | 2017-11-24 14:04 | FAST ---
SHIFT START DATE/TIME: 11/24/2017 07:00 (CDT) SHIFT END DATE/TIME: 11/24/2017 19:00 (CDT) NAME MYRA LE DATE OF : 1935 DATE OF ADMISSION: 11/22/2017 22:21 (CDT) PHONE: AGE: 82 SSN# [id number] GENDER: Male ENCOUNTER PHYSICIAN: Dr. Edilberto Colbert M.D. ADMISSION DIAGNOSIS: - Medically Complex Conditions 17 - Other Medically Complex Conditions (17.9) COLON ADENOCARCINOMA. Chronic Renal Disease. COPD. PVD. Parkinson's Disease. EATING: EATING - STEP 1: Does the patient require assistance when eating? Yes. EATING - STEP 2: Does the patient require the assistance of a helper? No, patient only requires an assistive device, O R s/he takes more than reasonable time to eat, OR there is a safety concern, OR s/he requires modifie d food consistency EATING - SCORE: 6-NELLIE GROOMING: Activity did not occur on this shift GROOMING - SCORE: 0-UNK BATHING: Activity did not occur on this shift BATHING - SCORE: 0-UNK DRESSING - UPPER BODY: Activity did not occur on this shift ARTICLES SCORE Total number of steps: 0 DRESSING - UPPER BODY - SCORE: 0-UNK DRESSING - LOWER BODY: Activity did not occur on this shift ARTICLES SCORE Total number of steps: 0 DRESSING - LOWER BODY - SCORE: 0-UNK TOILETING: TOILETING - STEP 1: Does the patient require assistance with toileting? Yes. TOILETING - STEP 2: Does the patient require the assistance of a helper? Yes. TOILETING - STEP 3: How much assistance does the patient require from the helper? Hands-on assistance from the helper TOILETING - STEP 4: Of the 3 tasks: 1) Adjusting clothing prior to use, 2) Cleansing of perineal area, 3) Adjusting clot flor after use; How many tasks does the patient perform WITHOUT assistance of the helper? Three tasks with steadying assistance from the helper TOILETING - SCORE: 4-MIN BLADDER MANAGEMENT: BLADDER MANAGEMENT - STEP 1: Does the patient control the bladder completely and intentionally without equipment or devices or med ications, and is always continent? No. BLADDER MANAGEMENT - STEP 2: Does the patient require the assistance of a helper? Yes. BLADDER MANAGEMENT - STEP 3: How much assistance does the patient require from the helper? Only set-up of equipment - such as plac ing it within reach of the patient or emptying a device - to maintain either satisfactory voiding pat tern or managing an external device, such as an absorbent pad, ileal device, or catheter BLADDER MANAGEMENT - SCORE: 5-SUP BLADDER MANAGEMENT - FREQUENCY OF ACCIDENTS: BLADDER MANAGEMENT(FA) - STEP 1: How many accidents has the patient had during the current shift? 0 BOWEL MANAGEMENT: Activity did not occur on this shift BOWEL MANAGEMENT - SCORE: 7-IND BOWEL MANAGEMENT - FREQUENCY OF ACCIDENTS: BOWEL MANAGEMENT(FA) - STEP 1: How many accidents has the patient had during the current shift? 0 TRANSFERS: BED, CHAIR, WHEELCHAIR: Activity did not occur on this shift TRANSFERS: BED, CHAIR, WHEELCHAIR - SCORE: 0-UNK TRANSFERS: TOILET: Activity did not occur on this shift TRANSFERS: TOILET - SCORE: 0-UNK TRANSFERS: SHOWER: Activity did not occur on this shift TRANSFERS: SHOWER - SCORE: 0-UNK TRANSFERS: TUB: Activity did not occur on this shift TRANSFERS: TUB - SCORE: 0-UNK LOCOMOTION: WALK: Activity did not occur on this shift LOCOMOTION: WALK - SCORE: 0-UNK LOCOMOTION: WHEELCHAIR: Activity did not occur on this shift LOCOMOTION: WHEELCHAIR - SCORE: 0-UNK COMPREHENSION: COMPREHENSION: TYPE: Both COMPREHENSION - STEP 1: Does the patient require help to understand complex and abstract ideas (such as current events, finan bradley, discharge planning, medical issues, relationships, etc)? No. COMPREHENSION - STEP 2: Does the patient need extra time, require an assistive device (such as glasses for visual comprehensi on or a hearing aid for auditory comprehension) or does s/he have mild difficulty understanding compl ex and abstract information? Yes. COMPREHENSION - SCORE: 6-NELLIE EXPRESSION EXPRESSION: TYPE: Both EXPRESSION - STEP 1: Does the patient require help expressing complex and abstract ideas (such as current events, finances , discharge planning, medical issues, relationships, etc)? No. EXPRESSION - STEP 2: Does the patient need extra time, require an assistive device (such as augmentive communication syste m or a communication board), OR does s/he have mild difficulty expressing complex and abstract ideas (including mild dysarthria or mild word-find problems)? Yes. EXPRESSION - SCORE: 6-NELLIE SOCIAL INTERACTION: SOCIAL INTERACTION - STEP 1: Does the patient require a helper to interact with others in social and therapeutic situations? No. SOCIAL INTERACTION - STEP 2: Does the patient need extra time in social situations, OR does s/he interact with staff, other patien ts, and family members ONLY in structured environments, OR does s/he require medication for social in teraction? Yes, patient needs extra time SOCIAL INTERACTION - SCORE: 6-NELLIE PROBLEM SOLVING: PROBLEM SOLVING - STEP 1: Does the patient need help to solve complex problems such as managing a checking account or confronti ng interpersonal problems? Yes. PROBLEM SOLVING - STEP 2: Does the patient solve basic routine problems half or more of the time? Yes. PROBLEM SOLVING - STEP 3: How often does the patient need help to solve basic routine problems? Less than 10% of the time PROBLEM SOLVING - SCORE: 5-SUP MEMORY: MEMORY - STEP 1: Does the patient need help to remember frequently encountered people, daily routines, and executing r equests? No. MEMORY - STEP 2: Does the patient have slight difficulty recognizing frequently encountered people, daily routines, or executing requests without the need for repetition or using self-initiated or environmental cues to remember? Yes. MEMORY - SCORE: 6-NELLIE SIGNATURE PANEL: The following modified sections: Eating - Score, Grooming - Score, Bathing - Score, Dressing - Upper Body - Score, Dressing - Lower Body - Score, Toileting - Score, Bladder Management - Score, Bowel Man agement - Score, Transfers: Bed, Chair, Wheelchair - Score, Transfers: Bed, Chair, Wheelchair - Comme nts:, Transfers: Toilet - Score, Transfers: Shower - Score, Transfers: Tub - Score, Locomotion: Walk - Score, Locomotion: Wheelchair - Score, Comprehension - Score, Expression - Score, Social Interactio n - Score, Problem Solving - Score, Memory - Score were [electronically] signed by Armen Drew on TueNov 24 2017 14:03:10 GMT-0500 (Central Daylight Time)
--- NOTE | 2017-11-24 14:27 | FAST ---
ENCOUNTER DATE AND TIME: 11/24/2017 08:00 (CDT) NAME MYRA LE DATE OF : 1935 DATE OF ADMISSION: 11/22/2017 22:21 (CDT) PHONE: AGE: 82 SSN# [id number] GENDER: Male ENCOUNTER PHYSICIAN: Dr. Edilberto Colbert M.D. ADMISSION DIAGNOSIS: - Medically Complex Conditions 17 - Other Medically Complex Conditions (17.9) COLON ADENOCARCINOMA. Chronic Renal Disease. COPD. PVD. Parkinson's Disease. EATING: Activity did not occur on this shift EATING - SCORE: 0-UNK GROOMING: Activity did not occur on this shift GROOMING - SCORE: 0-UNK BATHING: Activity did not occur on this shift BATHING - SCORE: 0-UNK DRESSING - UPPER BODY: Activity did not occur on this shift Patient is not dressing in public clothing ARTICLES SCORE Total number of steps: 0 DRESSING - UPPER BODY - SCORE: 0-UNK DRESSING - LOWER BODY: Activity did not occur on this shift Patient is not dressing in public clothing ARTICLES SCORE Total number of steps: 0 DRESSING - LOWER BODY - SCORE: 0-UNK TOILETING: Activity did not occur on this shift TOILETING - SCORE: 0-UNK BLADDER MANAGEMENT: Activity did not occur on this shift BLADDER MANAGEMENT - SCORE: 7-IND BOWEL MANAGEMENT: Activity did not occur on this shift BOWEL MANAGEMENT - SCORE: 7-IND TRANSFERS: BED, CHAIR, WHEELCHAIR: Activity did not occur on this shift TRANSFERS: BED, CHAIR, WHEELCHAIR - SCORE: 0-UNK TRANSFERS: TOILET: Activity did not occur on this shift TRANSFERS: TOILET - SCORE: 0-UNK TRANSFERS: SHOWER: Activity did not occur on this shift TRANSFERS: SHOWER - SCORE: 0-UNK TRANSFERS: TUB: Activity did not occur on this shift TRANSFERS: TUB - SCORE: 0-UNK LOCOMOTION: WALK: Activity did not occur on this shift LOCOMOTION: WALK - SCORE: 0-UNK LOCOMOTION: WHEELCHAIR: Activity did not occur on this shift LOCOMOTION: WHEELCHAIR - SCORE: 0-UNK LOCOMOTION: STAIRS: Activity did not occur on this shift LOCOMOTION: STAIRS - SCORE: 0-UNK COMPREHENSION: COMPREHENSION - SCORE: 0-UNK EXPRESSION EXPRESSION - SCORE: 0-UNK SOCIAL INTERACTION: SOCIAL INTERACTION - SCORE: 0-UNK PROBLEM SOLVING: PROBLEM SOLVING - SCORE: 0-UNK MEMORY: MEMORY - SCORE: 0-UNK SIGNATURE PANEL: The following modified sections: Transfers: Bed, Chair, Wheelchair - Score, Transfers: Toilet - Score , Locomotion: Walk - Score, Locomotion: Wheelchair - Score, Locomotion: Stairs - Score were [electron ically] signed by Akbar Brown PT on TueNov 24 2017 14:26:49 T-0500 (Central Daylight Time)
[2017-11-24] MEDS: RIVAROXABAN 15 MG TABLET PO SCH (16:57)
[2017-11-24] MEDS: PROMOD 30 ML DOSE PO SCH (20:49)
[2017-11-25] MEDS: IPRATROPIUM BROM 0.5MG/2.5ML NEB SCH ×4 (02:10→19:30)
--- NOTE | 2017-11-25 03:12 | FAST ---
SHIFT START DATE/TIME: 11/24/2017 19:00 (CDT) SHIFT END DATE/TIME: 11/25/2017 07:00 (CDT) NAME MYRA LE DATE OF : 1935 DATE OF ADMISSION: 11/22/2017 22:21 (CDT) PHONE: AGE: 82 SSN# [id number] GENDER: Male ENCOUNTER PHYSICIAN: Dr. Edilberto Colbert M.D. ADMISSION DIAGNOSIS: - Medically Complex Conditions 17 - Other Medically Complex Conditions (17.9) COLON ADENOCARCINOMA. Chronic Renal Disease. COPD. PVD. Parkinson's Disease. EATING: Activity did not occur on this shift EATING - SCORE: 0-UNK GROOMING: Activity did not occur on this shift GROOMING - SCORE: 0-UNK BATHING: Activity did not occur on this shift BATHING - SCORE: 0-UNK DRESSING - UPPER BODY: Patient is not dressing in public clothing ARTICLES SCORE Total number of steps: 0 DRESSING - UPPER BODY - SCORE: 0-UNK DRESSING - LOWER BODY: Patient is not dressing in public clothing ARTICLES SCORE Total number of steps: 0 DRESSING - LOWER BODY - SCORE: 0-UNK TOILETING: TOILETING - STEP 1: Does the patient require assistance with toileting? Yes. TOILETING - STEP 2: Does the patient require the assistance of a helper? Yes. TOILETING - STEP 3: How much assistance does the patient require from the helper? Hands-on assistance from the helper TOILETING - STEP 4: Of the 3 tasks: 1) Adjusting clothing prior to use, 2) Cleansing of perineal area, 3) Adjusting clot flor after use; How many tasks does the patient perform WITHOUT assistance of the helper? No tasks; h elper performs all three tasks TOILETING - SCORE: 1-DEP BLADDER MANAGEMENT: [place] removes incontinent device (Depends, pull ups, etc.); cleans the patient after accident / inco ntinent episode; and, applies new incontinent device. BLADDER MANAGEMENT - SCORE: 1-DEP BOWEL MANAGEMENT: Activity did not occur on this shift BOWEL MANAGEMENT - SCORE: 7-IND TRANSFERS: BED, CHAIR, WHEELCHAIR: Activity did not occur on this shift TRANSFERS: BED, CHAIR, WHEELCHAIR - SCORE: 0-UNK TRANSFERS: TOILET: Activity did not occur on this shift TRANSFERS: TOILET - SCORE: 0-UNK TRANSFERS: SHOWER: Activity did not occur on this shift TRANSFERS: SHOWER - SCORE: 0-UNK TRANSFERS: TUB: Activity did not occur on this shift TRANSFERS: TUB - SCORE: 0-UNK LOCOMOTION: WALK: Activity did not occur on this shift LOCOMOTION: WALK - SCORE: 0-UNK LOCOMOTION: WHEELCHAIR: Activity did not occur on this shift LOCOMOTION: WHEELCHAIR - SCORE: 0-UNK COMPREHENSION: COMPREHENSION: TYPE: Both COMPREHENSION - STEP 1: Does the patient require help to understand complex and abstract ideas (such as current events, finan bradley, discharge planning, medical issues, relationships, etc)? Yes. COMPREHENSION - STEP 2: Does the patient require help to understand questions or statements about basic needs or ideas (such as hunger, thirst, sleep, safety, daily schedule, room location, or discomfort) half or more of the t araceli? No. COMPREHENSION - STEP 3: How often does the patient need help to understand directions and conversation about basic needs? Les s than 10% of the time COMPREHENSION - SCORE: 5-SUP EXPRESSION EXPRESSION: TYPE: Both EXPRESSION - STEP 1: Does the patient require help expressing complex and abstract ideas (such as current events, finances , discharge planning, medical issues, relationships, etc)? No. EXPRESSION - STEP 2: Does the patient need extra time, require an assistive device (such as augmentive communication syste m or a communication board), OR does s/he have mild difficulty expressing complex and abstract ideas (including mild dysarthria or mild word-find problems)? Yes. EXPRESSION - SCORE: 6-NELLIE SOCIAL INTERACTION: SOCIAL INTERACTION - STEP 1: Does the patient require a helper to interact with others in social and therapeutic situations? No. SOCIAL INTERACTION - STEP 2: Does the patient need extra time in social situations, OR does s/he interact with staff, other patien ts, and family members ONLY in structured environments, OR does s/he require medication for social in teraction? Yes, patient needs extra time SOCIAL INTERACTION - SCORE: 6-NELLIE PROBLEM SOLVING: PROBLEM SOLVING - STEP 1: Does the patient need help to solve complex problems such as managing a checking account or confronti ng interpersonal problems? Yes. PROBLEM SOLVING - STEP 2: Does the patient solve basic routine problems half or more of the time? Yes. PROBLEM SOLVING - STEP 3: How often does the patient need help to solve basic routine problems? 10%-24% of the time PROBLEM SOLVING - SCORE: 4-MIN MEMORY: MEMORY - STEP 1: Does the patient need help to remember frequently encountered people, daily routines, and executing r equests? No. MEMORY - STEP 2: Does the patient have slight difficulty recognizing frequently encountered people, daily routines, or executing requests without the need for repetition or using self-initiated or environmental cues to remember? Yes. MEMORY - SCORE: 6-NELLIE SIGNATURE PANEL: The following modified sections: Eating - Score, Grooming - Score, Dressing - Upper Body - Score, Jewel ssing - Lower Body - Score, Toileting - Score, Bladder Management - Score, Bowel Management - Score, Transfers: Bed, Chair, Wheelchair - Score, Transfers: Toilet - Score, Transfers: Shower - Score, Valdez sfers: Tub - Score, Locomotion: Walk - Score, Locomotion: Wheelchair - Score, Comprehension - Score, Expression - Score, Social Interaction - Score, Problem Solving - Score, Memory - Score were [electro nically] signed by Margarita Raza CNA on TueNov 25 2017 03:11:35 GMT-0500 (Central Daylight Time)
[2017-11-25 06:21] LABS: Absolute Lymphocytes (CBC) 1.6 K/uL (0.7-4.9); Absolute Monocytes 0.8 K/uL (0.1-1.3); Absolute Neutrophil 5.5 K/uL (1.8-8.0); Basophils % 0.9 % (0-1.3); Eosinophils % 1.3 % (0-4.4); Hematocrit 30.2 % (39.6-49.0); Lymphocytes % 19.8 % (15.3-44.8); MCH 21.9 pg (27.0-35.0); MCV 70.7 fL (80-100); MPV 8.8 fL (7.6-11.3); Monocytes % 9.8 % (3.3-12.3); RBC Red Blood Cell Count 4.27 M/uL (4.33-5.43)
[2017-11-25] MEDS: ARFORMOTEROL TARTRATE 15 MCG/2 ML VIAL.NEB NEB SCH ×2 (07:57→19:30)
[2017-11-25] MEDS: BUDESONIDE 0.25 MG/2 ML NEB NEB SCH (07:57)
[2017-11-25] MEDS: GABAPENTIN 300 MG CAP PO SCH ×2 (08:52→20:47)
[2017-11-25] MEDS: PANTOPRAZOLE 40MG TABLET PO SCH ×2 (08:52→16:55)
[2017-11-25] MEDS: LOSARTAN POTASSIUM 50 MG TABLET PO SCH (08:52)
[2017-11-25] MEDS: TOPIRAMATE 25 MG TAB PO SCH ×2 (08:53→20:47)
[2017-11-25] MEDS: CARBIDOPA/LEVODOPA 25/100 TAB PO SCH ×2 (08:53→20:47)
[2017-11-25] MEDS: PENTOXIFYLLINE ER 400 MG TAB PO SCH ×3 (08:53→16:53)
[2017-11-25] MEDS: METOPROLOL TAR 50 MG TAB PO SCH ×2 (08:54→16:40)
[2017-11-25] MEDS: SUPLENA IMPAIRED RENAL 237 ML CAN PO SCH ×2 (08:54→20:00)
[2017-11-25] MEDS: DILTIAZEM HCL 180 MG SR CAP PO SCH (08:54)
[2017-11-25] MEDS: FERROUS SULFATE 325 MG TAB PO SCH ×3 (08:55→20:47)
[2017-11-25] MEDS: FUROSEMIDE 40 MG TABLET PO SCH (08:55)
[2017-11-25] MEDS: predniSONE 10 MG TAB PO SCH (08:55)
[2017-11-25] MEDS: FE SULF/FA/VIT B COMP & C TAB PO SCH (08:55)
[2017-11-25] MEDS: LIDOCAINE 5% PATCH TOP SCH (08:56)
[2017-11-25] MEDS: PROMOD 30 ML DOSE PO SCH ×2 (08:57→20:47)
[2017-11-25] MEDS: SUCRALFATE 1 GM TABLET PO SCH ×4 (08:57→20:47)
--- NOTE | 2017-11-25 09:40 | P.RH.PN ---
Estimated Length of Stay: 10 Expected Discharge Date: 12/01/17 Discharge Disposition Plan: Home Family Support: Yes Skilled Nursing Goal: Mobility, Transfers, Self Care Vital Signs: Last Vital Signs Temp 97.1 F 11/25/17 06:20 Pulse 91 H 11/25/17 08:55 Resp 18 11/25/17 06:20 BP 120/64 11/25/17 08:55 Pulse Ox 97 11/25/17 06:20 Laboratory: Laboratory Last Values WBC 8.0 K/uL (4.3-10.9) D 11/25/17 05:56 RBC 4.27 M/uL (4.33-5.43) L 11/25/17 05:56 Hgb 9.4 g/dL (13.6-17.9) L 11/25/17 05:56 Hct 30.2 % (39.6-49.0) L 11/25/17 05:56 MCV 70.7 fL (80-100) L 11/25/17 05:56 MCH 21.9 pg (27.0-35.0) L 11/25/17 05:56 MCHC 31.0 g/dL (32.0-36.0) L 11/25/17 05:56 RDW 25.3 % (12.1-15.2) H 11/25/17 05:56 Plt Count 271 K/uL (152-406) 11/25/17 05:56 MPV 8.8 fL (7.6-11.3) 11/25/17 05:56 Neutrophils % 68.2 % (41.7-73.7) 11/25/17 05:56 Lymphocytes % 19.8 % (15.3-44.8) 11/25/17 05:56 Monocytes % 9.8 % (3.3-12.3) 11/25/17 05:56 Eosinophils % 1.3 % (0-4.4) 11/25/17 05:56 Basophils % 0.9 % (0-1.3) 11/25/17 05:56 Absolute Neutrophils 5.5 K/uL (1.8-8.0) 11/25/17 05:56 Absolute Lymphocytes 1.6 K/uL (0.7-4.9) 11/25/17 05:56 Absolute Monocytes 0.8 K/uL (0.1-1.3) 11/25/17 05:56 Absolute Eosinophils 0.1 K/uL (0-0.5) 11/25/17 05:56 Absolute Basophils 0.1 K/uL (0-0.5) 11/25/17 05:56 Hypochromasia 1+ 11/23/17 06:04 Poikilocytosis 1+ 11/23/17 06:04 Anisocytosis 1+ 11/23/17 06:04 Microcytosis 1+ 11/23/17 06:04 Ovalocytes 1+ 11/23/17 06:04 Morphology Comment Noted (NOT SEEN) 11/23/17 06:04 pH Cancelled 11/23/17 17:32 pCO2 Cancelled 11/23/17 17:32 pO2 Cancelled 11/23/17 17:32 HCO3 Cancelled 11/23/17 17:32 Base Excess Cancelled 11/23/17 17:32 Oxyhemoglobin Cancelled 11/23/17 17:32 ABG O2 Sat (Measured) Cancelled 11/23/17 17:32 ABG Carboxyhemoglobin Cancelled 11/23/17 17:32 ABG Methemoglobin Cancelled 11/23/17 17:32 Other Total Hgb Cancelled 11/23/17 17:32 Inspired O2 Cancelled 11/23/17 17:32 Sodium 138 mmol/L (136-145) 11/24/17 06:11 Potassium 3.6 mmol/L (3.5-5.1) 11/24/17 06:11 Chloride 97 mmol/L (98-107) L 11/24/17 06:11 Carbon Dioxide 39 mmol/L (21-32) H 11/24/17 06:11 BUN 35 mg/dL (7-18) H 11/24/17 06:11 Creatinine 1.70 mg/dL (0.55-1.3) H 11/24/17 06:11 Estimated GFR 39 mL/min (=/>90) L 11/24/17 06:11 Glucose 97 mg/dL (74-106) 11/24/17 06:11 Calcium 8.7 mg/dL (8.5-10.1) 11/24/17 06:11 Magnesium 1.9 mg/dL (1.8-2.4) 11/23/17 06:04 Albumin 2.4 g/dL (3.4-5.0) L 11/23/17 06:04 Prealbumin 18.2 mg/dL (20-40) L 11/23/17 06:04 Urine Color Yellow 11/24/17 00:11 Urine Appearance Clear 11/24/17 00:11 Urine pH 5.0 (5.0-7.0) 11/24/17 00:11 Ur Specific [place] 1.020 (1.005-1.030) 11/24/17 00:11 Urine Ketones Negative (NEG) 11/24/17 00:11 Urine Blood Negative (NEG) 11/24/17 00:11 Urine Nitrite Negative (NEG) 11/24/17 00:11 Urine Bilirubin Negative (NEG) 11/24/17 00:11 Urine Urobilinogen 0.2 mg/dL (0.2-1.0) 11/24/17 00:11 Ur Leukocyte Esterase Negative (NEG) 11/24/17 00:11 Urine RBC None seen /HPF (NONE SEEN) 11/24/17 00:11 Urine WBC <5 /HPF (<5) 11/24/17 00:11 Ur Squamous Epith Cells <5 /HPF (NONE SEEN) 11/24/17 00:11 Urine Bacteria <20 /HPF (NONE SEEN) 11/24/17 00:11 Hyaline Casts 0-5 /LPF (NONE SEEN) 11/24/17 00:11 Urine Culture Reflexed Not needed 11/24/17 00:11 Urine Glucose Negative (NEG) 11/24/17 00:11 Urine Total Protein Negative (NEG) 11/24/17 00:11 Weight: 156 lb Wound Present: No Negative Pressure Wound Therapy Present: No Physician Update: His Hgb is mildly low at 9.4, down from 9.9 yesterday. He is on hemocyte plus and ferrous sulfate. He has moderate pain but is fairly well managed. He ambulated 20' with moderate assistance. He is contact guard with transfers. Functional Improvement: pt as been limited by pain and illness. pt may be presenting with a gastric ulcer or gastritis at the present. pt continues to require skilled PT services to enhance functional performance and safety. Summary: Patient's care plan and oysterman goals have been reviewed and revised as necessary. Please see the Rehabilitation Signature page for all necessary signatures.
--- NOTE | 2017-11-25 10:59 | P.PN ---
Subjective Date of Service: 11/25/17 Subjective: Improving Physical Examination - Vital Signs Temperature: 97.1 F Blood Pressure: 120/64 Pulse: 91 Respirations: 18 Pulse Ox (%): 97 - Physical Exam General: Alert, Oriented x3, Cooperative Respiratory: Clear to auscultation bilaterally Cardiovascular: No edema Gastrointestinal: No ascites, No tenderness, No masses, No rebound, No guarding , Other (incison clean and dry) - Studies Laboratory Data (last 24 hrs) 11/25/17 05:56: WBC 8.0 D, Hgb 9.4 L, Hct 30.2 L, Plt Count 271 Assessment And Plan - Plan S/P Right hemicolectomy for colon cancer 1.) Gastritis - likely stress related will continue PO omeprazole, continue carafate 2.) continue current diet 3.) continue norco to 5/325 Q6 prn 4.) hold antihypertensives for now 5.) continue medical management per Dr. Colbert
--- NOTE | 2017-11-25 14:44 | FAST ---
ENCOUNTER DATE AND TIME: 11/25/2017 08:00 (CDT) NAME MYRA LE DATE OF : 1935 DATE OF ADMISSION: 11/22/2017 22:21 (CDT) PHONE: AGE: 82 SSN# [id number] GENDER: Male ENCOUNTER PHYSICIAN: Dr. Edilberto Colbert M.D. ADMISSION DIAGNOSIS: - Medically Complex Conditions 17 - Other Medically Complex Conditions (17.9) COLON ADENOCARCINOMA. Chronic Renal Disease. COPD. PVD. Parkinson's Disease. EATING: Activity did not occur on this shift EATING - SCORE: 0-UNK GROOMING: Activity did not occur on this shift GROOMING - SCORE: 0-UNK BATHING: Activity did not occur on this shift BATHING - SCORE: 0-UNK DRESSING - UPPER BODY: Activity did not occur on this shift Patient is not dressing in public clothing ARTICLES SCORE Total number of steps: 0 DRESSING - UPPER BODY - SCORE: 0-UNK DRESSING - LOWER BODY: Activity did not occur on this shift Patient is not dressing in public clothing ARTICLES SCORE Total number of steps: 0 DRESSING - LOWER BODY - SCORE: 0-UNK TOILETING: Activity did not occur on this shift TOILETING - SCORE: 0-UNK BLADDER MANAGEMENT: Activity did not occur on this shift BLADDER MANAGEMENT - SCORE: 7-IND BOWEL MANAGEMENT: Activity did not occur on this shift BOWEL MANAGEMENT - SCORE: 7-IND TRANSFERS: BED, CHAIR, WHEELCHAIR: TRANSFERS: BED, CHAIR, WHEELCHAIR - STEP 1: Does the patient require assistance with bed, chair, or wheelchair transfers? Yes. TRANSFERS: BED, CHAIR, WHEELCHAIR - STEP 2: Does the patient require the assistance of a helper? Yes. TRANSFERS: BED, CHAIR, WHEELCHAIR - STEP 3: How much assistance does the patient require from the helper? Steadying/guiding assistance TRANSFERS: BED, CHAIR, WHEELCHAIR - SCORE: 4-MIN TRANSFERS: TOILET: Activity did not occur on this shift TRANSFERS: TOILET - SCORE: 0-UNK TRANSFERS: SHOWER: Activity did not occur on this shift TRANSFERS: SHOWER - SCORE: 0-UNK TRANSFERS: TUB: Activity did not occur on this shift TRANSFERS: TUB - SCORE: 0-UNK LOCOMOTION: WALK: Patient walks less than 50 feet LOCOMOTION: WALK - SCORE: 1-DEP LOCOMOTION: WHEELCHAIR: Activity did not occur on this shift LOCOMOTION: WHEELCHAIR - SCORE: 0-UNK LOCOMOTION: STAIRS: Activity did not occur on this shift LOCOMOTION: STAIRS - SCORE: 0-UNK COMPREHENSION: COMPREHENSION - SCORE: 0-UNK EXPRESSION EXPRESSION - SCORE: 0-UNK SOCIAL INTERACTION: SOCIAL INTERACTION - SCORE: 0-UNK PROBLEM SOLVING: PROBLEM SOLVING - SCORE: 0-UNK MEMORY: MEMORY - SCORE: 0-UNK SIGNATURE PANEL: The following modified sections: Transfers: Bed, Chair, Wheelchair - Score, Transfers: Toilet - Score , Locomotion: Walk - Score, Locomotion: Wheelchair - Score, Locomotion: Stairs - Score were [electron ically] signed by Akbar Brown PT on TueNov 25 2017 14:43:52 T-0500 (Central Daylight Time)
--- NOTE | 2017-11-25 15:15 | FAST ---
ENCOUNTER DATE AND TIME: 11/24/2017 08:00 (CDT) NAME MYRA LE DATE OF : 1935 DATE OF ADMISSION: 11/22/2017 22:21 (CDT) PHONE: AGE: 82 SSN# [id number] GENDER: Male ENCOUNTER PHYSICIAN: Dr. Edilberto Colbert M.D. ADMISSION DIAGNOSIS: - Medically Complex Conditions 17 - Other Medically Complex Conditions (17.9) COLON ADENOCARCINOMA. Chronic Renal Disease. COPD. PVD. Parkinson's Disease. EATING: EATING - STEP 1: Does the patient require assistance when eating? No. EATING - SCORE: 7-IND GROOMING: Patient shaved Wash, rinse, and dry face Wash, rinse, and dry hands GROOMING - STEP 1: Does the patient require assistance when grooming? Yes. GROOMING - STEP 2: Does the patient require the assistance of a helper? Yes. GROOMING - STEP 3: How much assistance does the patient require from the helper? Steadying assistance from the helper GROOMING - SCORE: 4-MIN BATHING: Abdomen Buttocks Chest Left arm Left lower leg and foot Left upper leg Perineal area Right arm Right lower leg and foot Right upper leg BATHING - STEP 1: Does the patient require assistance when bathing? Yes. BATHING - STEP 2: Does the patient require the assistance of a helper? Yes. BATHING - STEP 3: How much assistance does the patient require from the helper? More than just incidental help BATHING - STEP 4: What percent of the body parts did the patient bathe WITHOUT the helper? Half or more of the body par ts BATHING - SCORE: 3-MOD DRESSING - UPPER BODY: T-shirt/pullover shirt (four steps) ARTICLES SCORE Total number of steps: 4 DRESSING - UPPER BODY - STEP 1: Does the patient require help when dressing above the waist? Yes. DRESSING - UPPER BODY - STEP 2: Does the patient require the assistance of a helper? Yes. DRESSING - UPPER BODY - STEP 3: Does the helper touch the patient while dressing? Yes. DRESSING - UPPER BODY - STEP 4: How many of the total steps does the patient complete on his/her own? 3 DRESSING - UPPER BODY - SCORE: 4-MIN DRESSING - LOWER BODY: Elastic waist pants (three steps) Sock - Left foot (one step) Sock - Right foot (one step) Underwear (three steps) ARTICLES SCORE Total number of steps: 8 DRESSING - LOWER BODY - STEP 1: Does the patient require help when dressing below the waist? Yes. DRESSING - LOWER BODY - STEP 2: Does the patient require the assistance of a helper? Yes. DRESSING - LOWER BODY - STEP 3: Does the helper touch the patient while dressing? Yes. DRESSING - LOWER BODY - STEP 4: How many of the total steps does the patient complete on his/her own? 0 DRESSING - LOWER BODY - STEP 5: Does patient require total assistance for dressing below the waist such as the helper holding clothin g and performing basically all the activities? Yes. DRESSING - LOWER BODY - SCORE: 1-DEP TOILETING: Activity did not occur on this shift TOILETING - SCORE: 0-UNK BLADDER MANAGEMENT: Activity did not occur on this shift BLADDER MANAGEMENT - SCORE: 7-IND BOWEL MANAGEMENT: Activity did not occur on this shift BOWEL MANAGEMENT - SCORE: 7-IND TRANSFERS: BED, CHAIR, WHEELCHAIR: Activity did not occur on this shift TRANSFERS: BED, CHAIR, WHEELCHAIR - SCORE: 0-UNK TRANSFERS: TOILET: Activity did not occur on this shift TRANSFERS: TOILET - SCORE: 0-UNK TRANSFERS: SHOWER: TRANSFERS: SHOWER - STEP 1: Does the patient require assistance with shower transfers? Yes. TRANSFERS: SHOWER - STEP 2: Does the patient require the assistance of a helper? Yes. TRANSFERS: SHOWER - STEP 3: How much assistance does the patient require from the helper? More than incidental help TRANSFERS: SHOWER - STEP 4: How much more help does the patient require from the helper? Lifting the patient up AND down from the wheelchair onto the shower chair TRANSFERS: SHOWER - SCORE: 2-MAX TRANSFERS: TUB: Activity did not occur on this shift TRANSFERS: TUB - SCORE: 0-UNK LOCOMOTION: WALK: Activity did not occur on this shift LOCOMOTION: WALK - SCORE: 0-UNK LOCOMOTION: WHEELCHAIR: Activity did not occur on this shift LOCOMOTION: WHEELCHAIR - SCORE: 0-UNK LOCOMOTION: STAIRS: Activity did not occur on this shift LOCOMOTION: STAIRS - SCORE: 0-UNK COMPREHENSION: COMPREHENSION: TYPE: Both COMPREHENSION - STEP 1: Does the patient require help to understand complex and abstract ideas (such as current events, finan bradley, discharge planning, medical issues, relationships, etc)? No. COMPREHENSION - STEP 2: Does the patient need extra time, require an assistive device (such as glasses for visual comprehensi on or a hearing aid for auditory comprehension) or does s/he have mild difficulty understanding compl ex and abstract information? No. COMPREHENSION - SCORE: 7-IND EXPRESSION EXPRESSION: TYPE: Both EXPRESSION - STEP 1: Does the patient require help expressing complex and abstract ideas (such as current events, finances , discharge planning, medical issues, relationships, etc)? No. EXPRESSION - STEP 2: Does the patient need extra time, require an assistive device (such as augmentive communication syste m or a communication board), OR does s/he have mild difficulty expressing complex and abstract ideas (including mild dysarthria or mild word-find problems)? No. EXPRESSION - SCORE: 7-IND SOCIAL INTERACTION: SOCIAL INTERACTION - STEP 1: Does the patient require a helper to interact with others in social and therapeutic situations? No. SOCIAL INTERACTION - STEP 2: Does the patient need extra time in social situations, OR does s/he interact with staff, other patien ts, and family members ONLY in structured environments, OR does s/he require medication for social in teraction? Yes, patient needs extra time SOCIAL INTERACTION - SCORE: 6-NELLIE PROBLEM SOLVING: PROBLEM SOLVING - STEP 1: Does the patient need help to solve complex problems such as managing a checking account or confronti ng interpersonal problems? No. PROBLEM SOLVING - STEP 2: Does the patient require extra time to make decisions or solve problems, OR does s/he have slight dif ficulty reading, initiating, or self-correcting in unfamiliar situations? Yes, patient needs extra ti me. PROBLEM SOLVING - SCORE: 6-NELLIE MEMORY: MEMORY - STEP 1: Does the patient need help to remember frequently encountered people, daily routines, and executing r equests? No. MEMORY - STEP 2: Does the patient have slight difficulty recognizing frequently encountered people, daily routines, or executing requests without the need for repetition or using self-initiated or environmental cues to remember? Yes. MEMORY - SCORE: 6-NELLIE SIGNATURE PANEL: The following modified sections: Eating - Score, Grooming - Score, Bathing - Score, Dressing - Upper Body - Score, Dressing - Lower Body - Score, Toileting - Score, Transfers: Bed, Chair, Wheelchair - S core, Transfers: Toilet - Score, Transfers: Tub - Score, Transfers: Shower - Score, Comprehension - S core, Expression - Score, Social Interaction - Score, Problem Solving - Score, Memory - Score were [e lectronically] signed by Maryana Velasco OT on TueNov 25 2017 15:14:57 T-0500 (Central Daylight T araceli)
[2017-11-25] MEDS: RIVAROXABAN 15 MG TABLET PO SCH (16:54)
[2017-11-25] MEDS: HYDROCODONE/APAP 5/325 MG TAB PO PRN (20:55)
[2017-11-26] MEDS: IPRATROPIUM BROM 0.5MG/2.5ML NEB SCH ×4 (01:38→19:51)
--- NOTE | 2017-11-26 02:13 | FAST ---
SHIFT START DATE/TIME: 11/25/2017 19:00 (CDT) SHIFT END DATE/TIME: 11/26/2017 07:00 (CDT) NAME MYRA LE DATE OF : 1935 DATE OF ADMISSION: 11/22/2017 22:21 (CDT) PHONE: AGE: 82 SSN# [id number] GENDER: Male ENCOUNTER PHYSICIAN: Dr. Edilberto Colbert M.D. ADMISSION DIAGNOSIS: - Medically Complex Conditions 17 - Other Medically Complex Conditions (17.9) COLON ADENOCARCINOMA. Chronic Renal Disease. COPD. PVD. Parkinson's Disease. EATING: Activity did not occur on this shift EATING - SCORE: 0-UNK GROOMING: Activity did not occur on this shift GROOMING - SCORE: 0-UNK BATHING: Activity did not occur on this shift BATHING - SCORE: 0-UNK DRESSING - UPPER BODY: Patient is not dressing in public clothing ARTICLES SCORE Total number of steps: 0 DRESSING - UPPER BODY - SCORE: 0-UNK DRESSING - LOWER BODY: Patient is not dressing in public clothing ARTICLES SCORE Total number of steps: 0 DRESSING - LOWER BODY - SCORE: 0-UNK TOILETING: TOILETING - STEP 1: Does the patient require assistance with toileting? Yes. TOILETING - STEP 2: Does the patient require the assistance of a helper? Yes. TOILETING - STEP 3: How much assistance does the patient require from the helper? Hands-on assistance from the helper TOILETING - STEP 4: Of the 3 tasks: 1) Adjusting clothing prior to use, 2) Cleansing of perineal area, 3) Adjusting clot flor after use; How many tasks does the patient perform WITHOUT assistance of the helper? No tasks; h glenroy performs all three tasks TOILETING - SCORE: 1-DEP BLADDER MANAGEMENT: BLADDER MANAGEMENT - STEP 1: Does the patient control the bladder completely and intentionally without equipment or devices or med ications, and is always continent? No. BLADDER MANAGEMENT - STEP 2: Does the patient require the assistance of a helper? Yes. BLADDER MANAGEMENT - STEP 3: How much assistance does the patient require from the helper? Patient requires contact assistance fro m the helper BLADDER MANAGEMENT - STEP 4: How much contact assistance does the patient require from the helper? Patient requires moderate cari tance, and performs 50% to 75% of bladder management tasks - [place] positions AND holds urinal or bed ruiz BLADDER MANAGEMENT - SCORE: 3-MOD BOWEL MANAGEMENT: Activity did not occur on this shift BOWEL MANAGEMENT - SCORE: 7-IND TRANSFERS: BED, CHAIR, WHEELCHAIR: TRANSFERS: BED, CHAIR, WHEELCHAIR - STEP 1: Does the patient require assistance with bed, chair, or wheelchair transfers? Yes. TRANSFERS: BED, CHAIR, WHEELCHAIR - STEP 2: Does the patient require the assistance of a helper? Yes. TRANSFERS: BED, CHAIR, WHEELCHAIR - STEP 3: How much assistance does the patient require from the helper? Lifting of the legs TRANSFERS: BED, CHAIR, WHEELCHAIR - STEP 4: How many legs does the patient require the helper to lift? both legs TRANSFERS: BED, CHAIR, WHEELCHAIR - SCORE: 3-MOD TRANSFERS: TOILET: TRANSFERS: TOILET - STEP 1: Does the patient require assistance with toilet transfers? Yes. TRANSFERS: TOILET - STEP 2: Does the patient require the assistance of a helper? Yes. TRANSFERS: TOILET - STEP 3: How much assistance does the patient require from the helper? Patient performs half or more of the tr ansferring tasks TRANSFERS: TOILET - STEP 4: Does the patient need only incidental help such as contact guard or steadying during toilet transfer? No. Patient needs more than incidental help TRANSFERS: TOILET - SCORE: 3-MOD TRANSFERS: SHOWER: Activity did not occur on this shift TRANSFERS: SHOWER - SCORE: 0-UNK TRANSFERS: TUB: Activity did not occur on this shift TRANSFERS: TUB - SCORE: 0-UNK LOCOMOTION: WALK: Activity did not occur on this shift LOCOMOTION: WALK - SCORE: 0-UNK LOCOMOTION: WHEELCHAIR: Activity did not occur on this shift LOCOMOTION: WHEELCHAIR - SCORE: 0-UNK COMPREHENSION: COMPREHENSION: TYPE: Both COMPREHENSION - STEP 1: Does the patient require help to understand complex and abstract ideas (such as current events, finan bradley, discharge planning, medical issues, relationships, etc)? Yes. COMPREHENSION - STEP 2: Does the patient require help to understand questions or statements about basic needs or ideas (such as hunger, thirst, sleep, safety, daily schedule, room location, or discomfort) half or more of the t araceli? No. COMPREHENSION - STEP 3: How often does the patient need help to understand directions and conversation about basic needs? Les s than 10% of the time COMPREHENSION - SCORE: 5-SUP EXPRESSION EXPRESSION: TYPE: Both EXPRESSION - STEP 1: Does the patient require help expressing complex and abstract ideas (such as current events, finances , discharge planning, medical issues, relationships, etc)? No. EXPRESSION - STEP 2: Does the patient need extra time, require an assistive device (such as augmentive communication syste m or a communication board), OR does s/he have mild difficulty expressing complex and abstract ideas (including mild dysarthria or mild word-find problems)? Yes. EXPRESSION - SCORE: 6-NELLIE SOCIAL INTERACTION: SOCIAL INTERACTION - STEP 1: Does the patient require a helper to interact with others in social and therapeutic situations? No. SOCIAL INTERACTION - STEP 2: Does the patient need extra time in social situations, OR does s/he interact with staff, other patien ts, and family members ONLY in structured environments, OR does s/he require medication for social in teraction? Yes, patient needs extra time SOCIAL INTERACTION - SCORE: 6-NELLIE PROBLEM SOLVING: PROBLEM SOLVING - STEP 1: Does the patient need help to solve complex problems such as managing a checking account or confronti ng interpersonal problems? Yes. PROBLEM SOLVING - STEP 2: Does the patient solve basic routine problems half or more of the time? Yes. PROBLEM SOLVING - STEP 3: How often does the patient need help to solve basic routine problems? 10%-24% of the time PROBLEM SOLVING - SCORE: 4-MIN MEMORY: MEMORY - STEP 1: Does the patient need help to remember frequently encountered people, daily routines, and executing r equests? Yes. MEMORY - STEP 2: How often does the patient need help to remember frequently encountered people, daily routines, and e xecuting requests? Less than 10% of the time MEMORY - SCORE: 5-SUP
[2017-11-26 06:26] LABS: Absolute Lymphocytes (CBC) 1.7 K/uL (0.7-4.9); Absolute Monocytes 0.8 K/uL (0.1-1.3); Absolute Neutrophil 5.4 K/uL (1.8-8.0); Basophils % 0.7 % (0-1.3); Eosinophils % 1.1 % (0-4.4); Hematocrit 30.1 % (39.6-49.0); Lymphocytes % 21.6 % (15.3-44.8); MCH 21.9 pg (27.0-35.0); MCV 71.4 fL (80-100); MPV 9.4 fL (7.6-11.3); Monocytes % 10.1 % (3.3-12.3); RBC Red Blood Cell Count 4.22 M/uL (4.33-5.43)
[2017-11-26] MEDS: PANTOPRAZOLE 40MG TABLET PO SCH ×2 (07:43→16:40)
[2017-11-26] MEDS: LIDOCAINE 5% PATCH TOP SCH (07:43)
[2017-11-26] MEDS: predniSONE 10 MG TAB PO SCH (07:44)
[2017-11-26] MEDS: GABAPENTIN 300 MG CAP PO SCH ×2 (07:44→19:42)
[2017-11-26] MEDS: CARBIDOPA/LEVODOPA 25/100 TAB PO SCH ×2 (07:45→19:42)
[2017-11-26] MEDS: FE SULF/FA/VIT B COMP & C TAB PO SCH (07:45)
[2017-11-26] MEDS: TOPIRAMATE 25 MG TAB PO SCH ×2 (07:45→19:42)
[2017-11-26] MEDS: PENTOXIFYLLINE ER 400 MG TAB PO SCH ×3 (07:45→16:40)
[2017-11-26] MEDS: SUPLENA IMPAIRED RENAL 237 ML CAN PO SCH ×2 (07:46→19:42)
[2017-11-26] MEDS: LOSARTAN POTASSIUM 50 MG TABLET PO SCH (07:46)
[2017-11-26] MEDS: DILTIAZEM HCL 180 MG SR CAP PO SCH (07:46)
[2017-11-26] MEDS: PROMOD 30 ML DOSE PO SCH ×2 (07:46→19:41)
[2017-11-26] MEDS: METOPROLOL TAR 50 MG TAB PO SCH ×2 (07:47→17:04)
[2017-11-26] MEDS: FUROSEMIDE 40 MG TABLET PO SCH (07:47)
[2017-11-26] MEDS: HYDROCODONE/APAP 5/325 MG TAB PO PRN (07:48)
[2017-11-26] MEDS: BUDESONIDE 0.25 MG/2 ML NEB NEB SCH (08:00)
[2017-11-26] MEDS: ARFORMOTEROL TARTRATE 15 MCG/2 ML VIAL.NEB NEB SCH ×2 (08:06→19:51)
[2017-11-26] MEDS: FERROUS SULFATE 325 MG TAB PO SCH ×3 (08:34→21:10)
[2017-11-26] MEDS: SUCRALFATE 1 GM TABLET PO SCH ×4 (08:34→21:10)
[2017-11-26] MEDS: POLYETHYL GLY 3350 17 GM/DOSE PO PRN (13:09)
[2017-11-26] MEDS: RIVAROXABAN 15 MG TABLET PO SCH (16:40)
[2017-11-26] MEDS: MAGNESIUM HYDROXIDE 8% 30 ML PO PRN (16:58)
[2017-11-26] MEDS: DOCUSATE NA/SENNA CONC 1 TAB PO PRN (21:10)
--- NOTE | 2017-11-26 23:26 | FAST ---
SHIFT START DATE/TIME: 11/26/2017 07:00 (CDT) SHIFT END DATE/TIME: 11/26/2017 19:00 (CDT) NAME MYRA LE DATE OF : 1935 DATE OF ADMISSION: 11/22/2017 22:21 (CDT) PHONE: AGE: 82 N# [id number] GENDER: Male ENCOUNTER PHYSICIAN: Dr. Edilberto Colbert M.D. ADMISSION DIAGNOSIS: - Medically Complex Conditions 17 - Other Medically Complex Conditions (17.9) COLON ADENOCARCINOMA. Chronic Renal Disease. COPD. PVD. Parkinson's Disease. EATING: EATING - STEP 1: Does the patient require assistance when eating? Yes. EATING - STEP 2: Does the patient require the assistance of a helper? Yes. EATING - STEP 3: Does the patient perform half or more of the eating tasks? Yes. EATING - STEP 4: Does the patient need only supervision, cuing, coaxing OR help to apply an orthosis OR help to cut fo od, open containers, pour liquids, or butter bread? Yes. EATING - SCORE: 5-SUP GROOMING: Activity did not occur on this shift GROOMING - SCORE: 0-UNK BATHING: Activity did not occur on this shift BATHING - SCORE: 0-UNK DRESSING - UPPER BODY: Activity did not occur on this shift ARTICLES SCORE Total number of steps: 0 DRESSING - UPPER BODY - SCORE: 0-UNK DRESSING - LOWER BODY: Activity did not occur on this shift ARTICLES SCORE Total number of steps: 0 DRESSING - LOWER BODY - SCORE: 0-UNK TOILETING: TOILETING - STEP 1: Does the patient require assistance with toileting? Yes. TOILETING - STEP 2: Does the patient require the assistance of a helper? Yes. TOILETING - STEP 3: How much assistance does the patient require from the helper? Hands-on assistance from the helper TOILETING - STEP 4: Of the 3 tasks: 1) Adjusting clothing prior to use, 2) Cleansing of perineal area, 3) Adjusting clot flor after use; How many tasks does the patient perform WITHOUT assistance of the helper? Two tasks TOILETING - SCORE: 3-MOD BLADDER MANAGEMENT: BLADDER MANAGEMENT - STEP 1: Does the patient control the bladder completely and intentionally without equipment or devices or med ications, and is always continent? No. BLADDER MANAGEMENT - STEP 2: Does the patient require the assistance of a helper? No, patient requires and independently uses an a ssistive device, such as a urinal, bedpan, bedside commode, catheter, absorbent pad, or collecting de vice BLADDER MANAGEMENT - SCORE: 6-NELLIE BOWEL MANAGEMENT: Activity did not occur on this shift BOWEL MANAGEMENT - SCORE: 7-IND TRANSFERS: BED, CHAIR, WHEELCHAIR: TRANSFERS: BED, CHAIR, WHEELCHAIR - STEP 1: Does the patient require assistance with bed, chair, or wheelchair transfers? Yes. TRANSFERS: BED, CHAIR, WHEELCHAIR - STEP 2: Does the patient require the assistance of a helper? Yes. TRANSFERS: BED, CHAIR, WHEELCHAIR - STEP 3: How much assistance does the patient require from the helper? Lifting of the patient TRANSFERS: BED, CHAIR, WHEELCHAIR - STEP 4: Does the helper lift the patient ONLY up? ONLY down? Up AND Down? ONLY up. TRANSFERS: BED, CHAIR, WHEELCHAIR - SCORE: 3-MOD TRANSFERS: TOILET: TRANSFERS: TOILET - STEP 1: Does the patient require assistance with toilet transfers? Yes. TRANSFERS: TOILET - STEP 2: Does the patient require the assistance of a helper? Yes. TRANSFERS: TOILET - STEP 3: How much assistance does the patient require from the helper? Patient performs half or more of the tr ansferring tasks TRANSFERS: TOILET - STEP 4: Does the patient need only incidental help such as contact guard or steadying during toilet transfer? No. Patient needs more than incidental help TRANSFERS: TOILET - SCORE: 3-MOD TRANSFERS: SHOWER: Activity did not occur on this shift TRANSFERS: SHOWER - SCORE: 0-UNK TRANSFERS: TUB: Activity did not occur on this shift TRANSFERS: TUB - SCORE: 0-UNK LOCOMOTION: WALK: Activity did not occur on this shift LOCOMOTION: WALK - SCORE: 0-UNK LOCOMOTION: WHEELCHAIR: Activity did not occur on this shift LOCOMOTION: WHEELCHAIR - SCORE: 0-UNK COMPREHENSION: COMPREHENSION: TYPE: Both COMPREHENSION - STEP 1: Does the patient require help to understand complex and abstract ideas (such as current events, finan bradley, discharge planning, medical issues, relationships, etc)? No. COMPREHENSION - STEP 2: Does the patient need extra time, require an assistive device (such as glasses for visual comprehensi on or a hearing aid for auditory comprehension) or does s/he have mild difficulty understanding compl ex and abstract information? Yes. COMPREHENSION - SCORE: 6-NELLIE EXPRESSION EXPRESSION: TYPE: Both EXPRESSION - STEP 1: Does the patient require help expressing complex and abstract ideas (such as current events, finances , discharge planning, medical issues, relationships, etc)? No. EXPRESSION - STEP 2: Does the patient need extra time, require an assistive device (such as augmentive communication syste m or a communication board), OR does s/he have mild difficulty expressing complex and abstract ideas (including mild dysarthria or mild word-find problems)? Yes. EXPRESSION - SCORE: 6-NELLIE SOCIAL INTERACTION: SOCIAL INTERACTION - STEP 1: Does the patient require a helper to interact with others in social and therapeutic situations? No. SOCIAL INTERACTION - STEP 2: Does the patient need extra time in social situations, OR does s/he interact with staff, other patien ts, and family members ONLY in structured environments, OR does s/he require medication for social in teraction? Yes, patient needs extra time SOCIAL INTERACTION - SCORE: 6-NELLIE PROBLEM SOLVING: PROBLEM SOLVING - STEP 1: Does the patient need help to solve complex problems such as managing a checking account or confronti ng interpersonal problems? No. PROBLEM SOLVING - STEP 2: Does the patient require extra time to make decisions or solve problems, OR does s/he have slight dif ficulty reading, initiating, or self-correcting in unfamiliar situations? Yes, patient needs extra ti me. PROBLEM SOLVING - SCORE: 6-NELLIE MEMORY: MEMORY - STEP 1: Does the patient need help to remember frequently encountered people, daily routines, and executing r equests? No. MEMORY - STEP 2: Does the patient have slight difficulty recognizing frequently encountered people, daily routines, or executing requests without the need for repetition or using self-initiated or environmental cues to remember? Yes. MEMORY - SCORE: 6-NELLIE SIGNATURE PANEL: The following modified sections: Eating - Score, Grooming - Score, Bathing - Score, Dressing - Upper Body - Score, Dressing - Lower Body - Score, Toileting - Score, Bladder Management - Score, Bowel Man agement - Score, Transfers: Bed, Chair, Wheelchair - Score, Transfers: Toilet - Score, Transfers: Lisa wer - Score, Transfers: Tub - Score, Locomotion: Walk - Score, Locomotion: Wheelchair - Score, Compre hension - Score, Expression - Score, Social Interaction - Score, Problem Solving - Score, Memory - Sc ore were [electronically] signed by Yossi Cotto on Sat Nov 26 2017 11:08:57 GMT-0500 (Central Daylight Time)
--- NOTE | 2017-11-26 23:27 | FAST ---
ENCOUNTER DATE AND TIME: 11/26/2017 08:00 (CDT) NAME MYRA LE DATE OF : 1935 DATE OF ADMISSION: 11/22/2017 22:21 (CDT) PHONE: AGE: 82 SSN# [id number] GENDER: Male ENCOUNTER PHYSICIAN: Dr. Edilberto Colbert M.D. ADMISSION DIAGNOSIS: - Medically Complex Conditions 17 - Other Medically Complex Conditions (17.9) COLON ADENOCARCINOMA. Chronic Renal Disease. COPD. PVD. Parkinson's Disease. EATING: Activity did not occur on this shift EATING - SCORE: 0-UNK GROOMING: Wash, rinse, and dry hands GROOMING - STEP 1: Does the patient require assistance when grooming? No. GROOMING - SCORE: 7-IND BATHING: Abdomen Buttocks Chest Left arm Left lower leg and foot Left upper leg Perineal area Right arm Right lower leg and foot Right upper leg BATHING - STEP 1: Does the patient require assistance when bathing? Yes. BATHING - STEP 2: Does the patient require the assistance of a helper? Yes. BATHING - STEP 3: How much assistance does the patient require from the helper? More than just incidental help BATHING - STEP 4: What percent of the body parts did the patient bathe WITHOUT the helper? Half or more of the body par ts BATHING - SCORE: 3-MOD DRESSING - UPPER BODY: T-shirt/pullover shirt (four steps) ARTICLES SCORE Total number of steps: 4 DRESSING - UPPER BODY - STEP 1: Does the patient require help when dressing above the waist? Yes. DRESSING - UPPER BODY - STEP 2: Does the patient require the assistance of a helper? Yes. DRESSING - UPPER BODY - STEP 3: Does the helper touch the patient while dressing? Yes. DRESSING - UPPER BODY - STEP 4: How many of the total steps does the patient complete on his/her own? 3 DRESSING - UPPER BODY - SCORE: 4-MIN DRESSING - UPPER BODY - COMMENTS: Assist with abdominal binder DRESSING - LOWER BODY: Elastic waist pants (three steps) Sock - Left foot (one step) Sock - Right foot (one step) Underwear (three steps) ARTICLES SCORE Total number of steps: 8 DRESSING - LOWER BODY - STEP 1: Does the patient require help when dressing below the waist? Yes. DRESSING - LOWER BODY - STEP 2: Does the patient require the assistance of a helper? Yes. DRESSING - LOWER BODY - STEP 3: Does the helper touch the patient while dressing? Yes. DRESSING - LOWER BODY - STEP 4: How many of the total steps does the patient complete on his/her own? 2 DRESSING - LOWER BODY - STEP 5: Does patient require total assistance for dressing below the waist such as the helper holding clothin g and performing basically all the activities? No. DRESSING - LOWER BODY - SCORE: 2-MAX TOILETING: TOILETING - STEP 1: Does the patient require assistance with toileting? Yes. TOILETING - STEP 2: Does the patient require the assistance of a helper? Yes. TOILETING - STEP 3: How much assistance does the patient require from the helper? Hands-on assistance from the helper TOILETING - STEP 4: Of the 3 tasks: 1) Adjusting clothing prior to use, 2) Cleansing of perineal area, 3) Adjusting clot flor after use; How many tasks does the patient perform WITHOUT assistance of the helper? Three tasks with steadying assistance from the helper TOILETING - SCORE: 4-MIN BLADDER MANAGEMENT: Activity did not occur on this shift BLADDER MANAGEMENT - SCORE: 7-IND BOWEL MANAGEMENT: Activity did not occur on this shift BOWEL MANAGEMENT - SCORE: 7-IND TRANSFERS: BED, CHAIR, WHEELCHAIR: TRANSFERS: BED, CHAIR, WHEELCHAIR - STEP 1: Does the patient require assistance with bed, chair, or wheelchair transfers? Yes. TRANSFERS: BED, CHAIR, WHEELCHAIR - STEP 2: Does the patient require the assistance of a helper? Yes. TRANSFERS: BED, CHAIR, WHEELCHAIR - STEP 3: How much assistance does the patient require from the helper? Lifting of the patient TRANSFERS: BED, CHAIR, WHEELCHAIR - STEP 4: Does the helper lift the patient ONLY up? ONLY down? Up AND Down? Up AND Down. TRANSFERS: BED, CHAIR, WHEELCHAIR - SCORE: 2-MAX TRANSFERS: TOILET: TRANSFERS: TOILET - STEP 1: Does the patient require assistance with toilet transfers? Yes. TRANSFERS: TOILET - STEP 2: Does the patient require the assistance of a helper? Yes. TRANSFERS: TOILET - STEP 3: How much assistance does the patient require from the helper? Patient performs less than half of the transferring tasks TRANSFERS: TOILET - STEP 4: Does the patient require total assistance for the toilet transfer such as the helper doing basically all the lifting? No. TRANSFERS: TOILET - SCORE: 2-MAX TRANSFERS: SHOWER: TRANSFERS: SHOWER - STEP 1: Does the patient require assistance with shower transfers? Yes. TRANSFERS: SHOWER - STEP 2: Does the patient require the assistance of a helper? Yes. TRANSFERS: SHOWER - STEP 3: How much assistance does the patient require from the helper? More than incidental help TRANSFERS: SHOWER - STEP 4: How much more help does the patient require from the helper? Lifting the patient up AND down from the wheelchair onto the shower chair TRANSFERS: SHOWER - SCORE: 2-MAX TRANSFERS: TUB: Activity did not occur on this shift TRANSFERS: TUB - SCORE: 0-UNK LOCOMOTION: WALK: Activity did not occur on this shift LOCOMOTION: WALK - SCORE: 0-UNK LOCOMOTION: WHEELCHAIR: Activity did not occur on this shift LOCOMOTION: WHEELCHAIR - SCORE: 0-UNK LOCOMOTION: STAIRS: Activity did not occur on this shift LOCOMOTION: STAIRS - SCORE: 0-UNK COMPREHENSION: COMPREHENSION: TYPE: Both COMPREHENSION - STEP 1: Does the patient require help to understand complex and abstract ideas (such as current events, finan bradley, discharge planning, medical issues, relationships, etc)? No. COMPREHENSION - STEP 2: Does the patient need extra time, require an assistive device (such as glasses for visual comprehensi on or a hearing aid for auditory comprehension) or does s/he have mild difficulty understanding compl ex and abstract information? Yes. COMPREHENSION - SCORE: 6-NELLIE EXPRESSION EXPRESSION: TYPE: Vocal EXPRESSION - STEP 1: Does the patient require help expressing complex and abstract ideas (such as current events, finances , discharge planning, medical issues, relationships, etc)? No. EXPRESSION - STEP 2: Does the patient need extra time, require an assistive device (such as augmentive communication syste m or a communication board), OR does s/he have mild difficulty expressing complex and abstract ideas (including mild dysarthria or mild word-find problems)? No. EXPRESSION - SCORE: 7-IND SOCIAL INTERACTION: SOCIAL INTERACTION - STEP 1: Does the patient require a helper to interact with others in social and therapeutic situations? No. SOCIAL INTERACTION - STEP 2: Does the patient need extra time in social situations, OR does s/he interact with staff, other patien ts, and family members ONLY in structured environments, OR does s/he require medication for social in teraction? No. SOCIAL INTERACTION - SCORE: 7-IND PROBLEM SOLVING: PROBLEM SOLVING - STEP 1: Does the patient need help to solve complex problems such as managing a checking account or confronti ng interpersonal problems? No. PROBLEM SOLVING - STEP 2: Does the patient require extra time to make decisions or solve problems, OR does s/he have slight dif ficulty reading, initiating, or self-correcting in unfamiliar situations? Yes, patient needs extra ti me. PROBLEM SOLVING - SCORE: 6-NELLIE MEMORY: MEMORY - STEP 1: Does the patient need help to remember frequently encountered people, daily routines, and executing r equests? No. MEMORY - STEP 2: Does the patient have slight difficulty recognizing frequently encountered people, daily routines, or executing requests without the need for repetition or using self-initiated or environmental cues to remember? Yes. MEMORY - SCORE: 6-NELLIE SIGNATURE PANEL: The following modified sections: Eating - Score, Grooming - Score, Bathing - Score, Dressing - Upper Body - Score, Dressing - Upper Body - Comments:, Dressing - Lower Body - Score, Toileting - Score, Tr ansfers: Bed, Chair, Wheelchair - Score, Transfers: Shower - Score, Transfers: Toilet - Score, Transf ers: Tub - Score, Comprehension - Score, Expression - Score, Social Interaction - Score, Problem Solv ing - Score, Memory - Score were [electronically] signed by Tabitha West OT on Sat Nov 26 2017 16: 05:14 GMT-0500 (Central Daylight Time)
[2017-11-27] MEDS: IPRATROPIUM BROM 0.5MG/2.5ML NEB SCH ×4 (01:59→20:18)
--- NOTE | 2017-11-27 02:09 | FAST ---
SHIFT START DATE/TIME: 11/26/2017 19:00 (CDT) SHIFT END DATE/TIME: 11/27/2017 07:00 (CDT) NAME MYRA LE DATE OF : 1935 DATE OF ADMISSION: 11/22/2017 22:21 (CDT) PHONE: AGE: 82 SSN# [id number] GENDER: Male ENCOUNTER PHYSICIAN: Dr. Edilberto Colbert M.D. ADMISSION DIAGNOSIS: - Medically Complex Conditions 17 - Other Medically Complex Conditions (17.9) COLON ADENOCARCINOMA. Chronic Renal Disease. COPD. PVD. Parkinson's Disease. EATING: Activity did not occur on this shift EATING - SCORE: 0-UNK GROOMING: Wash, rinse, and dry hands GROOMING - STEP 1: Does the patient require assistance when grooming? Yes. GROOMING - STEP 2: Does the patient require the assistance of a helper? Yes. GROOMING - STEP 3: How much assistance does the patient require from the helper? Steadying assistance from the helper GROOMING - SCORE: 4-MIN BATHING: Activity did not occur on this shift BATHING - SCORE: 0-UNK DRESSING - UPPER BODY: Activity did not occur on this shift ARTICLES SCORE Total number of steps: 0 DRESSING - UPPER BODY - SCORE: 0-UNK DRESSING - LOWER BODY: Activity did not occur on this shift ARTICLES SCORE Total number of steps: 0 DRESSING - LOWER BODY - SCORE: 0-UNK TOILETING: TOILETING - STEP 1: Does the patient require assistance with toileting? Yes. TOILETING - STEP 2: Does the patient require the assistance of a helper? Yes. TOILETING - STEP 3: How much assistance does the patient require from the helper? Hands-on assistance from the helper TOILETING - STEP 4: Of the 3 tasks: 1) Adjusting clothing prior to use, 2) Cleansing of perineal area, 3) Adjusting clot flor after use; How many tasks does the patient perform WITHOUT assistance of the helper? Three tasks with steadying assistance from the helper TOILETING - SCORE: 4-MIN BLADDER MANAGEMENT: BLADDER MANAGEMENT - STEP 1: Does the patient control the bladder completely and intentionally without equipment or devices or med ications, and is always continent? No. BLADDER MANAGEMENT - STEP 2: Does the patient require the assistance of a helper? Yes. BLADDER MANAGEMENT - STEP 3: How much assistance does the patient require from the helper? Patient requires contact assistance fro m the helper BLADDER MANAGEMENT - STEP 4: How much contact assistance does the patient require from the helper? Patient requires minimal assist ance to maintain an external device - by positioning, and the patient performs 75% or more of bladder management tasks, while the helper provides less than 25% of the assistance to position patient on / off bedpan BLADDER MANAGEMENT - SCORE: 4-MIN BOWEL MANAGEMENT: BOWEL MANAGEMENT - STEP 1: Does the patient control bowels completely and intentionally without equipment devices or medications AND is always continent? No. BOWEL MANAGEMENT - STEP 2: Does the patient require the assistance of a helper? Yes. BOWEL MANAGEMENT - STEP 3: How much assistance does the patient require from the helper? Patient requires minimal contact assist ance / incidental help to maintain an external device such as removing / applying wafer BOWEL MANAGEMENT - SCORE: 4-MIN TRANSFERS: BED, CHAIR, WHEELCHAIR: TRANSFERS: BED, CHAIR, WHEELCHAIR - STEP 1: Does the patient require assistance with bed, chair, or wheelchair transfers? Yes. TRANSFERS: BED, CHAIR, WHEELCHAIR - STEP 2: Does the patient require the assistance of a helper? Yes. TRANSFERS: BED, CHAIR, WHEELCHAIR - STEP 3: How much assistance does the patient require from the helper? Steadying/guiding assistance TRANSFERS: BED, CHAIR, WHEELCHAIR - SCORE: 4-MIN TRANSFERS: TOILET: TRANSFERS: TOILET - STEP 1: Does the patient require assistance with toilet transfers? Yes. TRANSFERS: TOILET - STEP 2: Does the patient require the assistance of a helper? Yes. TRANSFERS: TOILET - STEP 3: How much assistance does the patient require from the helper? Patient performs half or more of the tr ansferring tasks TRANSFERS: TOILET - STEP 4: Does the patient need only incidental help such as contact guard or steadying during toilet transfer? Yes. TRANSFERS: TOILET - SCORE: 4-MIN TRANSFERS: SHOWER: Activity did not occur on this shift TRANSFERS: SHOWER - SCORE: 0-UNK TRANSFERS: TUB: Activity did not occur on this shift TRANSFERS: TUB - SCORE: 0-UNK LOCOMOTION: WALK: Activity did not occur on this shift LOCOMOTION: WALK - SCORE: 0-UNK LOCOMOTION: WHEELCHAIR: Activity did not occur on this shift LOCOMOTION: WHEELCHAIR - SCORE: 0-UNK COMPREHENSION: COMPREHENSION: TYPE: Both COMPREHENSION - STEP 1: Does the patient require help to understand complex and abstract ideas (such as current events, finan bradley, discharge planning, medical issues, relationships, etc)? No. COMPREHENSION - STEP 2: Does the patient need extra time, require an assistive device (such as glasses for visual comprehensi on or a hearing aid for auditory comprehension) or does s/he have mild difficulty understanding compl ex and abstract information? Yes. COMPREHENSION - SCORE: 6-NELLIE EXPRESSION EXPRESSION: TYPE: Both EXPRESSION - STEP 1: Does the patient require help expressing complex and abstract ideas (such as current events, finances , discharge planning, medical issues, relationships, etc)? No. EXPRESSION - STEP 2: Does the patient need extra time, require an assistive device (such as augmentive communication syste m or a communication board), OR does s/he have mild difficulty expressing complex and abstract ideas (including mild dysarthria or mild word-find problems)? Yes. EXPRESSION - SCORE: 6-NELLIE SOCIAL INTERACTION: SOCIAL INTERACTION - STEP 1: Does the patient require a helper to interact with others in social and therapeutic situations? No. SOCIAL INTERACTION - STEP 2: Does the patient need extra time in social situations, OR does s/he interact with staff, other patien ts, and family members ONLY in structured environments, OR does s/he require medication for social in teraction? Yes, patient needs extra time SOCIAL INTERACTION - SCORE: 6-NELLIE PROBLEM SOLVING: Patient requires bed/chair alarms due to attempts to get up unassisted when helper is needed. PROBLEM SOLVING - STEP 1: How often do the bed/chair alarms go off? Occasionally - the alarms go off about 25% or less PROBLEM SOLVING - SCORE: 4-MIN MEMORY: MEMORY - STEP 1: How often do the bed/chair alarms go off? Occasionally - the alarms go off about 25% of the time or l ess MEMORY - SCORE: 4-MIN SIGNATURE PANEL: The following modified sections: Eating - Score, Grooming - Score, Bathing - Score, Dressing - Upper Body - Score, Dressing - Lower Body - Score, Toileting - Score, Bladder Management - Score, Bowel Man agement - Score, Transfers: Bed, Chair, Wheelchair - Score, Transfers: Toilet - Score, Transfers: Lisa wer - Score, Transfers: Tub - Score, Locomotion: Walk - Score, Locomotion: Wheelchair - Score, Compre hension - Score, Expression - Score, Social Interaction - Score, Problem Solving - Score, Memory - Sc ore were [electronically] signed by Lynn Reed RN on TueNov 27 2017 02:08:55 GMT-0500 ([facility] Time)
[2017-11-27] MEDS: ARFORMOTEROL TARTRATE 15 MCG/2 ML VIAL.NEB NEB SCH ×2 (07:39→20:18)
[2017-11-27] MEDS: BUDESONIDE 0.25 MG/2 ML NEB NEB SCH (07:39)
[2017-11-27] MEDS: PROMOD 30 ML DOSE PO SCH ×2 (07:50→20:43)
[2017-11-27] MEDS: SUPLENA IMPAIRED RENAL 237 ML CAN PO SCH ×2 (07:50→20:44)
[2017-11-27] MEDS: predniSONE 10 MG TAB PO SCH (07:51)
[2017-11-27] MEDS: DILTIAZEM HCL 180 MG SR CAP PO SCH (07:51)
[2017-11-27] MEDS: PENTOXIFYLLINE ER 400 MG TAB PO SCH ×3 (07:51→16:25)
[2017-11-27] MEDS: LIDOCAINE 5% PATCH TOP SCH (07:51)
[2017-11-27] MEDS: TOPIRAMATE 25 MG TAB PO SCH ×2 (07:52→20:43)
[2017-11-27] MEDS: PANTOPRAZOLE 40MG TABLET PO SCH ×2 (07:52→16:25)
[2017-11-27] MEDS: FE SULF/FA/VIT B COMP & C TAB PO SCH (07:52)
[2017-11-27] MEDS: LOSARTAN POTASSIUM 50 MG TABLET PO SCH (07:52)
[2017-11-27] MEDS: GABAPENTIN 300 MG CAP PO SCH ×2 (07:52→20:44)
[2017-11-27] MEDS: FUROSEMIDE 40 MG TABLET PO SCH (07:53)
[2017-11-27] MEDS: METOPROLOL TAR 50 MG TAB PO SCH ×2 (07:53→16:25)
[2017-11-27] MEDS: CARBIDOPA/LEVODOPA 25/100 TAB PO SCH ×2 (07:53→20:44)
[2017-11-27] MEDS: HYDROCODONE/APAP 5/325 MG TAB PO PRN ×2 (07:56→14:08)
[2017-11-27] MEDS: FERROUS SULFATE 325 MG TAB PO SCH ×3 (07:59→20:43)
[2017-11-27] MEDS: SUCRALFATE 1 GM TABLET PO SCH ×4 (07:59→20:44)
--- NOTE | 2017-11-27 10:06 | FAST ---
SHIFT START DATE/TIME: 11/27/2017 07:00 (CDT) SHIFT END DATE/TIME: 11/27/2017 19:00 (CDT) NAME MYRA LE DATE OF : 1935 DATE OF ADMISSION: 11/22/2017 22:21 (CDT) PHONE: AGE: 82 SSN# [id number] GENDER: Male ENCOUNTER PHYSICIAN: Dr. Ediblerto Colbert M.D. ADMISSION DIAGNOSIS: - Medically Complex Conditions 17 - Other Medically Complex Conditions (17.9) COLON ADENOCARCINOMA. Chronic Renal Disease. COPD. PVD. Parkinson's Disease. EATING: EATING - STEP 1: Does the patient require assistance when eating? Yes. EATING - STEP 2: Does the patient require the assistance of a helper? No, patient only requires an assistive device, O R s/he takes more than reasonable time to eat, OR there is a safety concern, OR s/he requires modifie d food consistency EATING - SCORE: 6-NELLIE GROOMING: Activity did not occur on this shift GROOMING - SCORE: 0-UNK BATHING: Activity did not occur on this shift BATHING - SCORE: 0-UNK DRESSING - UPPER BODY: Patient is not dressing in public clothing ARTICLES SCORE Total number of steps: 0 DRESSING - UPPER BODY - SCORE: 0-UNK DRESSING - LOWER BODY: Patient is not dressing in public clothing ARTICLES SCORE Total number of steps: 0 DRESSING - LOWER BODY - SCORE: 0-UNK TOILETING: TOILETING - STEP 1: Does the patient require assistance with toileting? Yes. TOILETING - STEP 2: Does the patient require the assistance of a helper? Yes. TOILETING - STEP 3: How much assistance does the patient require from the helper? Hands-on assistance from the helper TOILETING - STEP 4: Of the 3 tasks: 1) Adjusting clothing prior to use, 2) Cleansing of perineal area, 3) Adjusting clot flor after use; How many tasks does the patient perform WITHOUT assistance of the helper? Two tasks TOILETING - SCORE: 3-MOD BLADDER MANAGEMENT: BLADDER MANAGEMENT - STEP 1: Does the patient control the bladder completely and intentionally without equipment or devices or med ications, and is always continent? No. BLADDER MANAGEMENT - STEP 2: Does the patient require the assistance of a helper? No, patient requires and independently uses an a ssistive device, such as a urinal, bedpan, bedside commode, catheter, absorbent pad, or collecting de vice BLADDER MANAGEMENT - SCORE: 6-NELLIE BOWEL MANAGEMENT: Activity did not occur on this shift BOWEL MANAGEMENT - SCORE: 7-IND TRANSFERS: BED, CHAIR, WHEELCHAIR: TRANSFERS: BED, CHAIR, WHEELCHAIR - STEP 1: Does the patient require assistance with bed, chair, or wheelchair transfers? Yes. TRANSFERS: BED, CHAIR, WHEELCHAIR - STEP 2: Does the patient require the assistance of a helper? Yes. TRANSFERS: BED, CHAIR, WHEELCHAIR - STEP 3: How much assistance does the patient require from the helper? Steadying/guiding assistance TRANSFERS: BED, CHAIR, WHEELCHAIR - SCORE: 4-MIN TRANSFERS: TOILET: TRANSFERS: TOILET - STEP 1: Does the patient require assistance with toilet transfers? Yes. TRANSFERS: TOILET - STEP 2: Does the patient require the assistance of a helper? Yes. TRANSFERS: TOILET - STEP 3: How much assistance does the patient require from the helper? Patient performs half or more of the tr ansferring tasks TRANSFERS: TOILET - STEP 4: Does the patient need only incidental help such as contact guard or steadying during toilet transfer? No. Patient needs more than incidental help TRANSFERS: TOILET - SCORE: 3-MOD TRANSFERS: SHOWER: Activity did not occur on this shift TRANSFERS: SHOWER - SCORE: 0-UNK TRANSFERS: TUB: Activity did not occur on this shift TRANSFERS: TUB - SCORE: 0-UNK LOCOMOTION: WALK: Activity did not occur on this shift LOCOMOTION: WALK - SCORE: 0-UNK LOCOMOTION: WHEELCHAIR: Activity did not occur on this shift LOCOMOTION: WHEELCHAIR - SCORE: 0-UNK COMPREHENSION: COMPREHENSION: TYPE: Both COMPREHENSION - STEP 1: Does the patient require help to understand complex and abstract ideas (such as current events, finan bradley, discharge planning, medical issues, relationships, etc)? No. COMPREHENSION - STEP 2: Does the patient need extra time, require an assistive device (such as glasses for visual comprehensi on or a hearing aid for auditory comprehension) or does s/he have mild difficulty understanding compl ex and abstract information? Yes. COMPREHENSION - SCORE: 6-NELLIE EXPRESSION EXPRESSION: TYPE: Both EXPRESSION - STEP 1: Does the patient require help expressing complex and abstract ideas (such as current events, finances , discharge planning, medical issues, relationships, etc)? Yes. EXPRESSION - STEP 2: Does the patient require help to express basic necessities or ideas (such as hunger, thirst, sleep, s afety, daily schedule, room location, or discomfort) half or more of the time? No. EXPRESSION - STEP 3: How often does the patient need help to express directions and conversation about basic needs? Less t marie 10% of the time EXPRESSION - SCORE: 5-SUP SOCIAL INTERACTION: SOCIAL INTERACTION - STEP 1: Does the patient require a helper to interact with others in social and therapeutic situations? Yes. SOCIAL INTERACTION - STEP 2: Does the patient interact appropriately half or more of the time? Yes. SOCIAL INTERACTION - STEP 3: How often does the patient need help to interact appropriately? Less than 10% of the time SOCIAL INTERACTION - SCORE: 5-SUP PROBLEM SOLVING: PROBLEM SOLVING - STEP 1: Does the patient need help to solve complex problems such as managing a checking account or confronti ng interpersonal problems? Yes. PROBLEM SOLVING - STEP 2: Does the patient solve basic routine problems half or more of the time? Yes. PROBLEM SOLVING - STEP 3: How often does the patient need help to solve basic routine problems? 10%-24% of the time PROBLEM SOLVING - SCORE: 4-MIN MEMORY: MEMORY - STEP 1: Does the patient need help to remember frequently encountered people, daily routines, and executing r equests? Yes. MEMORY - STEP 2: How often does the patient need help to remember frequently encountered people, daily routines, and e xecuting requests? 10% - 24% of the time MEMORY - SCORE: 4-MIN SIGNATURE PANEL: The following modified sections: Eating - Score, Grooming - Score, Bathing - Score, Dressing - Upper Body - Score, Dressing - Lower Body - Score, Toileting - Score, Bladder Management - Score, Bowel Man agement - Score, Transfers: Bed, Chair, Wheelchair - Score, Transfers: Toilet - Score, Transfers: Lisa wer - Score, Transfers: Tub - Score, Locomotion: Walk - Score, Locomotion: Wheelchair - Score, Compre hension - Score, Expression - Score, Social Interaction - Score, Problem Solving - Score, Memory - Sc ore were [electronically] signed by Yossi Cotto on TueNov 27 2017 10:05:48 GMT-0500 (Central Daylight Time)
[2017-11-27] MEDS: RIVAROXABAN 15 MG TABLET PO SCH (16:25)
[2017-11-27] MEDS: DOCUSATE NA/SENNA CONC 1 TAB PO PRN (20:43)
[2017-11-27] MEDS: CRANBERRY FRUIT EXTRACT 200 MG CAP PO SCH (20:44)
--- NOTE | 2017-11-28 02:56 | FAST ---
SHIFT START DATE/TIME: 11/27/2017 19:00 (CDT) SHIFT END DATE/TIME: 11/28/2017 07:00 (CDT) NAME MYRA LE DATE OF : 1935 DATE OF ADMISSION: 11/22/2017 22:21 (CDT) PHONE: AGE: 82 SSN# [id number] GENDER: Male ENCOUNTER PHYSICIAN: Dr. Edilberto Colbert M.D. ADMISSION DIAGNOSIS: - Medically Complex Conditions 17 - Other Medically Complex Conditions (17.9) COLON ADENOCARCINOMA. Chronic Renal Disease. COPD. PVD. Parkinson's Disease. EATING: Activity did not occur on this shift EATING - SCORE: 0-UNK GROOMING: Activity did not occur on this shift GROOMING - SCORE: 0-UNK BATHING: Activity did not occur on this shift BATHING - SCORE: 0-UNK DRESSING - UPPER BODY: Activity did not occur on this shift ARTICLES SCORE Total number of steps: 0 DRESSING - UPPER BODY - SCORE: 0-UNK DRESSING - LOWER BODY: Activity did not occur on this shift ARTICLES SCORE Total number of steps: 0 DRESSING - LOWER BODY - SCORE: 0-UNK TOILETING: TOILETING - STEP 1: Does the patient require assistance with toileting? Yes. TOILETING - STEP 2: Does the patient require the assistance of a helper? Yes. TOILETING - STEP 3: How much assistance does the patient require from the helper? Hands-on assistance from the helper TOILETING - STEP 4: Of the 3 tasks: 1) Adjusting clothing prior to use, 2) Cleansing of perineal area, 3) Adjusting clot flor after use; How many tasks does the patient perform WITHOUT assistance of the helper? No tasks; h glenroy performs all three tasks TOILETING - SCORE: 1-DEP BLADDER MANAGEMENT: BLADDER MANAGEMENT - STEP 1: Does the patient control the bladder completely and intentionally without equipment or devices or med ications, and is always continent? No. BLADDER MANAGEMENT - STEP 2: Does the patient require the assistance of a helper? Yes. BLADDER MANAGEMENT - STEP 3: How much assistance does the patient require from the helper? Patient requires contact assistance fro m the helper BLADDER MANAGEMENT - STEP 4: How much contact assistance does the patient require from the helper? Patient requires maximal assist ance, and only performs 25% to 49% of bladder management tasks BLADDER MANAGEMENT - SCORE: 2-MAX BOWEL MANAGEMENT: BOWEL MANAGEMENT - STEP 1: Does the patient control bowels completely and intentionally without equipment devices or medications AND is always continent? No. BOWEL MANAGEMENT - STEP 2: Does the patient require the assistance of a helper? Yes. BOWEL MANAGEMENT - STEP 3: How much assistance does the patient require from the helper? Patient requires maximal assistance - p erforms 25% to 49 % of bowel management tasks BOWEL MANAGEMENT - SCORE: 2-MAX TRANSFERS: BED, CHAIR, WHEELCHAIR: TRANSFERS: BED, CHAIR, WHEELCHAIR - STEP 1: Does the patient require assistance with bed, chair, or wheelchair transfers? Yes. TRANSFERS: BED, CHAIR, WHEELCHAIR - STEP 2: Does the patient require the assistance of a helper? Yes. TRANSFERS: BED, CHAIR, WHEELCHAIR - STEP 3: How much assistance does the patient require from the helper? Lifting of the legs TRANSFERS: BED, CHAIR, WHEELCHAIR - STEP 4: How many legs does the patient require the helper to lift? both legs TRANSFERS: BED, CHAIR, WHEELCHAIR - SCORE: 3-MOD TRANSFERS: TOILET: TRANSFERS: TOILET - STEP 1: Does the patient require assistance with toilet transfers? Yes. TRANSFERS: TOILET - STEP 2: Does the patient require the assistance of a helper? Yes. TRANSFERS: TOILET - STEP 3: How much assistance does the patient require from the helper? Patient performs half or more of the tr ansferring tasks TRANSFERS: TOILET - STEP 4: Does the patient need only incidental help such as contact guard or steadying during toilet transfer? No. Patient needs more than incidental help TRANSFERS: TOILET - SCORE: 3-MOD TRANSFERS: SHOWER: Activity did not occur on this shift TRANSFERS: SHOWER - SCORE: 0-UNK TRANSFERS: TUB: Activity did not occur on this shift TRANSFERS: TUB - SCORE: 0-UNK LOCOMOTION: WALK: Activity did not occur on this shift LOCOMOTION: WALK - SCORE: 0-UNK LOCOMOTION: WHEELCHAIR: Activity did not occur on this shift LOCOMOTION: WHEELCHAIR - SCORE: 0-UNK COMPREHENSION: COMPREHENSION: TYPE: Both COMPREHENSION - STEP 1: Does the patient require help to understand complex and abstract ideas (such as current events, finan bradley, discharge planning, medical issues, relationships, etc)? Yes. COMPREHENSION - STEP 2: Does the patient require help to understand questions or statements about basic needs or ideas (such as hunger, thirst, sleep, safety, daily schedule, room location, or discomfort) half or more of the t araceli? No. COMPREHENSION - STEP 3: How often does the patient need help to understand directions and conversation about basic needs? Les s than 10% of the time COMPREHENSION - SCORE: 5-SUP EXPRESSION EXPRESSION: TYPE: Both EXPRESSION - STEP 1: Does the patient require help expressing complex and abstract ideas (such as current events, finances , discharge planning, medical issues, relationships, etc)? Yes. EXPRESSION - STEP 2: Does the patient require help to express basic necessities or ideas (such as hunger, thirst, sleep, s afety, daily schedule, room location, or discomfort) half or more of the time? No. EXPRESSION - STEP 3: How often does the patient need help to express directions and conversation about basic needs? Less t marie 10% of the time EXPRESSION - SCORE: 5-SUP SOCIAL INTERACTION: SOCIAL INTERACTION - STEP 1: Does the patient require a helper to interact with others in social and therapeutic situations? Yes. SOCIAL INTERACTION - STEP 2: Does the patient interact appropriately half or more of the time? Yes. SOCIAL INTERACTION - STEP 3: How often does the patient need help to interact appropriately? Less than 10% of the time SOCIAL INTERACTION - SCORE: 5-SUP PROBLEM SOLVING: Patient requires bed/chair alarms due to attempts to get up unassisted when helper is needed. PROBLEM SOLVING - STEP 1: How often do the bed/chair alarms go off? Sometimes - the alarms go off about half the time PROBLEM SOLVING - SCORE: 3-MOD MEMORY: MEMORY - STEP 1: How often do the bed/chair alarms go off? Sometimes - the alarms go off about half the time MEMORY - SCORE: 3-MOD SIGNATURE PANEL: The following modified sections: Eating - Score, Grooming - Score, Bathing - Score, Dressing - Upper Body - Score, Dressing - Lower Body - Score, Toileting - Score, Bladder Management - Score, Bowel Man agement - Score, Transfers: Bed, Chair, Wheelchair - Score, Transfers: Toilet - Score, Transfers: Lisa wer - Score, Transfers: Tub - Score, Locomotion: Walk - Score, Locomotion: Wheelchair - Score, Compre hension - Score, Expression - Score, Social Interaction - Score, Problem Solving - Score, Memory - Sc ore were [electronically] signed by Jesenia Waldrop on TueNov 28 2017 02:56:22 GMT-0500 (Central Day light Time)
[2017-11-28] MEDS: IPRATROPIUM BROM 0.5MG/2.5ML NEB SCH ×4 (03:12→19:43)
[2017-11-28] MEDS: ALBUTEROL 2.5 MG/3 ML NEB SOL NEB SCH ×4 (06:11→19:43)
[2017-11-28] MEDS: PANTOPRAZOLE 40MG TABLET PO SCH ×2 (06:30→17:10)
--- NOTE | 2017-11-28 07:35 | RAD REPORT ---
EXAM DESCRIPTION: RAD - Chest Single View - 11/28/2017 6:44 am CLINICAL HISTORY: Pneumonia COMPARISON: November 24 chest film, October 13 CT chest TECHNIQUE: AP portable chest image was obtained 0625 hours . FINDINGS: Further clearing of the right upper lung field opacification noted. Right lung base is als o mostly clear. There does appear to be some minimal remnant pleural fluid on the right. Minimal opac ification remains in the left lung base. Prominent cardiomediastinal silhouette is stable. Trachea is midline. Fullness of the mediastinum is believed to be a summation of vasculature. No abnormal mass or lymphadenopathy seen October 13. No pneumothorax. No acute aortic findings suspected. IMPRESSION: Continued clearing of the lung cho. No progressive process.
[2017-11-28] MEDS: SUPLENA IMPAIRED RENAL 237 ML CAN PO SCH ×2 (08:00→20:00)
[2017-11-28] MEDS: DILTIAZEM HCL 180 MG SR CAP PO SCH ×2 (08:00→08:32)
[2017-11-28] MEDS: LIDOCAINE 5% PATCH TOP SCH (08:31)
[2017-11-28] MEDS: FE SULF/FA/VIT B COMP & C TAB PO SCH (08:32)
[2017-11-28] MEDS: FERROUS SULFATE 325 MG TAB PO SCH ×3 (08:32→20:50)
[2017-11-28] MEDS: GABAPENTIN 300 MG CAP PO SCH ×2 (08:32→20:50)
[2017-11-28] MEDS: PENTOXIFYLLINE ER 400 MG TAB PO SCH ×3 (08:33→17:12)
[2017-11-28] MEDS: CRANBERRY FRUIT EXTRACT 200 MG CAP PO SCH ×2 (08:33→20:49)
[2017-11-28] MEDS: SUCRALFATE 1 GM TABLET PO SCH ×4 (08:33→20:50)
[2017-11-28] MEDS: LOSARTAN POTASSIUM 50 MG TABLET PO SCH (08:34)
[2017-11-28] MEDS: CARBIDOPA/LEVODOPA 25/100 TAB PO SCH ×2 (08:35→20:50)
[2017-11-28] MEDS: METOPROLOL TAR 50 MG TAB PO SCH ×2 (08:35→17:10)
[2017-11-28] MEDS: TOPIRAMATE 25 MG TAB PO SCH ×2 (08:35→20:50)
[2017-11-28] MEDS: FUROSEMIDE 40 MG TABLET PO SCH (08:36)
[2017-11-28] MEDS: predniSONE 10 MG TAB PO SCH (08:36)
[2017-11-28] MEDS: PROMOD 30 ML DOSE PO SCH ×2 (08:37→20:50)
[2017-11-28] MEDS: HYDROCODONE/APAP 5/325 MG TAB PO PRN (08:37)
[2017-11-28] MEDS: BUDESONIDE 0.25 MG/2 ML NEB NEB SCH (08:48)
[2017-11-28] MEDS: ARFORMOTEROL TARTRATE 15 MCG/2 ML VIAL.NEB NEB SCH ×2 (08:48→19:43)
--- NOTE | 2017-11-28 09:44 | FAST ---
SHIFT START DATE/TIME: 11/28/2017 07:00 (CDT) SHIFT END DATE/TIME: 11/28/2017 19:00 (CDT) NAME MYRA LE DATE OF : 1935 DATE OF ADMISSION: 11/22/2017 22:21 (CDT) PHONE: AGE: 82 N# [id number] GENDER: Male ENCOUNTER PHYSICIAN: Dr. Edilberto Colbert M.D. ADMISSION DIAGNOSIS: - Medically Complex Conditions 17 - Other Medically Complex Conditions (17.9) COLON ADENOCARCINOMA. Chronic Renal Disease. COPD. PVD. Parkinson's Disease. EATING: EATING - STEP 1: Does the patient require assistance when eating? Yes. EATING - STEP 2: Does the patient require the assistance of a helper? Yes. EATING - STEP 3: Does the patient perform half or more of the eating tasks? Yes. EATING - STEP 4: Does the patient need only supervision, cuing, coaxing OR help to apply an orthosis OR help to cut fo od, open containers, pour liquids, or butter bread? Yes. EATING - SCORE: 5-SUP GROOMING: Activity did not occur on this shift GROOMING - SCORE: 0-UNK BATHING: Activity did not occur on this shift BATHING - SCORE: 0-UNK DRESSING - UPPER BODY: Activity did not occur on this shift ARTICLES SCORE Total number of steps: 0 DRESSING - UPPER BODY - SCORE: 0-UNK DRESSING - LOWER BODY: Activity did not occur on this shift ARTICLES SCORE Total number of steps: 0 DRESSING - LOWER BODY - SCORE: 0-UNK TOILETING: TOILETING - STEP 1: Does the patient require assistance with toileting? Yes. TOILETING - STEP 2: Does the patient require the assistance of a helper? Yes. TOILETING - STEP 3: How much assistance does the patient require from the helper? Hands-on assistance from the helper TOILETING - STEP 4: Of the 3 tasks: 1) Adjusting clothing prior to use, 2) Cleansing of perineal area, 3) Adjusting clot flor after use; How many tasks does the patient perform WITHOUT assistance of the helper? One task TOILETING - SCORE: 2-MAX BLADDER MANAGEMENT: BLADDER MANAGEMENT - STEP 1: Does the patient control the bladder completely and intentionally without equipment or devices or med ications, and is always continent? No. BLADDER MANAGEMENT - STEP 2: Does the patient require the assistance of a helper? No, patient requires and independently uses an a ssistive device, such as a urinal, bedpan, bedside commode, catheter, absorbent pad, or collecting de vice BLADDER MANAGEMENT - SCORE: 6-NELLIE BOWEL MANAGEMENT: BOWEL MANAGEMENT - STEP 1: Does the patient control bowels completely and intentionally without equipment devices or medications AND is always continent? No. BOWEL MANAGEMENT - STEP 2: Does the patient require the assistance of a helper? No, patient requires and manages independently a n assistive device such as a bedpan, bedside commode, absorbent pad, incontinent device, or collectin g device BOWEL MANAGEMENT - SCORE: 6-NELLIE TRANSFERS: BED, CHAIR, WHEELCHAIR: TRANSFERS: BED, CHAIR, WHEELCHAIR - STEP 1: Does the patient require assistance with bed, chair, or wheelchair transfers? Yes. TRANSFERS: BED, CHAIR, WHEELCHAIR - STEP 2: Does the patient require the assistance of a helper? Yes. TRANSFERS: BED, CHAIR, WHEELCHAIR - STEP 3: How much assistance does the patient require from the helper? Lifting of the patient TRANSFERS: BED, CHAIR, WHEELCHAIR - STEP 4: Does the helper lift the patient ONLY up? ONLY down? Up AND Down? ONLY up. TRANSFERS: BED, CHAIR, WHEELCHAIR - SCORE: 3-MOD TRANSFERS: TOILET: TRANSFERS: TOILET - STEP 1: Does the patient require assistance with toilet transfers? Yes. TRANSFERS: TOILET - STEP 2: Does the patient require the assistance of a helper? Yes. TRANSFERS: TOILET - STEP 3: How much assistance does the patient require from the helper? Patient performs half or more of the tr ansferring tasks TRANSFERS: TOILET - STEP 4: Does the patient need only incidental help such as contact guard or steadying during toilet transfer? No. Patient needs more than incidental help TRANSFERS: TOILET - SCORE: 3-MOD TRANSFERS: SHOWER: Activity did not occur on this shift TRANSFERS: SHOWER - SCORE: 0-UNK TRANSFERS: TUB: Activity did not occur on this shift TRANSFERS: TUB - SCORE: 0-UNK LOCOMOTION: WALK: Activity did not occur on this shift LOCOMOTION: WALK - SCORE: 0-UNK LOCOMOTION: WHEELCHAIR: Activity did not occur on this shift LOCOMOTION: WHEELCHAIR - SCORE: 0-UNK COMPREHENSION: COMPREHENSION: TYPE: Both COMPREHENSION - STEP 1: Does the patient require help to understand complex and abstract ideas (such as current events, finan bradley, discharge planning, medical issues, relationships, etc)? No. COMPREHENSION - STEP 2: Does the patient need extra time, require an assistive device (such as glasses for visual comprehensi on or a hearing aid for auditory comprehension) or does s/he have mild difficulty understanding compl ex and abstract information? Yes. COMPREHENSION - SCORE: 6-NELLIE EXPRESSION EXPRESSION: TYPE: Both EXPRESSION - STEP 1: Does the patient require help expressing complex and abstract ideas (such as current events, finances , discharge planning, medical issues, relationships, etc)? No. EXPRESSION - STEP 2: Does the patient need extra time, require an assistive device (such as augmentive communication syste m or a communication board), OR does s/he have mild difficulty expressing complex and abstract ideas (including mild dysarthria or mild word-find problems)? Yes. EXPRESSION - SCORE: 6-NELLIE SOCIAL INTERACTION: SOCIAL INTERACTION - STEP 1: Does the patient require a helper to interact with others in social and therapeutic situations? No. SOCIAL INTERACTION - STEP 2: Does the patient need extra time in social situations, OR does s/he interact with staff, other patien ts, and family members ONLY in structured environments, OR does s/he require medication for social in teraction? Yes, patient needs extra time SOCIAL INTERACTION - SCORE: 6-NELLIE PROBLEM SOLVING: PROBLEM SOLVING - STEP 1: Does the patient need help to solve complex problems such as managing a checking account or confronti ng interpersonal problems? No. PROBLEM SOLVING - STEP 2: Does the patient require extra time to make decisions or solve problems, OR does s/he have slight dif ficulty reading, initiating, or self-correcting in unfamiliar situations? Yes, patient needs extra ti me. PROBLEM SOLVING - SCORE: 6-NELLIE MEMORY: MEMORY - STEP 1: Does the patient need help to remember frequently encountered people, daily routines, and executing r equests? No. MEMORY - STEP 2: Does the patient have slight difficulty recognizing frequently encountered people, daily routines, or executing requests without the need for repetition or using self-initiated or environmental cues to remember? Yes. MEMORY - SCORE: 6-NELLIE SIGNATURE PANEL: The following modified sections: Eating - Score, Grooming - Score, Bathing - Score, Dressing - Upper Body - Score, Dressing - Lower Body - Score, Toileting - Score, Bladder Management - Score, Bowel Man agement - Score, Transfers: Bed, Chair, Wheelchair - Score, Transfers: Toilet - Score, Transfers: Lisa wer - Score, Transfers: Tub - Score, Locomotion: Walk - Score, Locomotion: Wheelchair - Score, Compre hension - Score, Expression - Score, Social Interaction - Score, Problem Solving - Score, Memory - Sc ore were [electronically] signed by Yossi Cotto on TueNov 28 2017 09:43:44 GMT-0500 (Central Daylight Time)
[2017-11-28] MEDS: ONDANSETRON 4 MG (ODT) TAB PO PRN (10:49)
--- NOTE | 2017-11-28 16:36 | FAST ---
ENCOUNTER DATE AND TIME: 11/28/2017 08:00 (CDT) NAME MYRA LE DATE OF : 1935 DATE OF ADMISSION: 11/22/2017 22:21 (CDT) PHONE: AGE: 82 SSN# [id number] GENDER: Male ENCOUNTER PHYSICIAN: Dr. Edilberto Colbert M.D. ADMISSION DIAGNOSIS: - Medically Complex Conditions 17 - Other Medically Complex Conditions (17.9) COLON ADENOCARCINOMA. Chronic Renal Disease. COPD. PVD. Parkinson's Disease. EATING: EATING - STEP 1: Does the patient require assistance when eating? No. EATING - SCORE: 7-IND GROOMING: Wash, rinse, and dry face Wash, rinse, and dry hands GROOMING - STEP 1: Does the patient require assistance when grooming? No. GROOMING - SCORE: 7-IND BATHING: Abdomen Buttocks Chest Left arm Left lower leg and foot Left upper leg Perineal area Right arm Right lower leg and foot Right upper leg BATHING - STEP 1: Does the patient require assistance when bathing? Yes. BATHING - STEP 2: Does the patient require the assistance of a helper? Yes. BATHING - STEP 3: How much assistance does the patient require from the helper? Only supervision, cuing, coaxing, instr uctions, encouragement BATHING - SCORE: 5-SUP DRESSING - UPPER BODY: Button down shirt or blouse - NOT tucked in (four steps) ARTICLES SCORE Total number of steps: 4 DRESSING - UPPER BODY - STEP 1: Does the patient require help when dressing above the waist? Yes. DRESSING - UPPER BODY - STEP 2: Does the patient require the assistance of a helper? Yes. DRESSING - UPPER BODY - STEP 3: Does the helper touch the patient while dressing? No. DRESSING - UPPER BODY - SCORE: 5-SUP DRESSING - LOWER BODY: Elastic waist pants (three steps) Sock - Left foot (one step) Sock - Right foot (one step) Underwear (three steps) ARTICLES SCORE Total number of steps: 8 DRESSING - LOWER BODY - STEP 1: Does the patient require help when dressing below the waist? Yes. DRESSING - LOWER BODY - STEP 2: Does the patient require the assistance of a helper? Yes. DRESSING - LOWER BODY - STEP 3: Does the helper touch the patient while dressing? Yes. DRESSING - LOWER BODY - STEP 4: How many of the total steps does the patient complete on his/her own? 2 DRESSING - LOWER BODY - STEP 5: Does patient require total assistance for dressing below the waist such as the helper holding clothin g and performing basically all the activities? No. DRESSING - LOWER BODY - SCORE: 2-MAX TOILETING: TOILETING - STEP 1: Does the patient require assistance with toileting? Yes. TOILETING - STEP 2: Does the patient require the assistance of a helper? Yes. TOILETING - STEP 3: How much assistance does the patient require from the helper? Hands-on assistance from the helper TOILETING - STEP 4: Of the 3 tasks: 1) Adjusting clothing prior to use, 2) Cleansing of perineal area, 3) Adjusting clot flor after use; How many tasks does the patient perform WITHOUT assistance of the helper? Two tasks TOILETING - SCORE: 3-MOD BLADDER MANAGEMENT: Activity did not occur on this shift BLADDER MANAGEMENT - SCORE: 7-IND BOWEL MANAGEMENT: Activity did not occur on this shift BOWEL MANAGEMENT - SCORE: 7-IND TRANSFERS: BED, CHAIR, WHEELCHAIR: Activity did not occur on this shift TRANSFERS: BED, CHAIR, WHEELCHAIR - SCORE: 0-UNK TRANSFERS: TOILET: TRANSFERS: TOILET - STEP 1: Does the patient require assistance with toilet transfers? Yes. TRANSFERS: TOILET - STEP 2: Does the patient require the assistance of a helper? Yes. TRANSFERS: TOILET - STEP 3: How much assistance does the patient require from the helper? Only supervision, cuing, coaxing, OR he lp to set out transfer equipment or to lock brakes and/or lift foot rests TRANSFERS: TOILET - SCORE: 5-SUP TRANSFERS: SHOWER: TRANSFERS: SHOWER - STEP 1: Does the patient require assistance with shower transfers? Yes. TRANSFERS: SHOWER - STEP 2: Does the patient require the assistance of a helper? Yes. TRANSFERS: SHOWER - STEP 3: How much assistance does the patient require from the helper? Only supervision, cuing, coaxing, or he lp to set out transfer equipment or to lock brakes and/or lift foot rests TRANSFERS: SHOWER - SCORE: 5-SUP TRANSFERS: TUB: Activity did not occur on this shift TRANSFERS: TUB - SCORE: 0-UNK LOCOMOTION: WALK: Activity did not occur on this shift LOCOMOTION: WALK - SCORE: 0-UNK LOCOMOTION: WHEELCHAIR: Activity did not occur on this shift LOCOMOTION: WHEELCHAIR - SCORE: 0-UNK LOCOMOTION: STAIRS: Activity did not occur on this shift LOCOMOTION: STAIRS - SCORE: 0-UNK COMPREHENSION: COMPREHENSION: TYPE: Both COMPREHENSION - STEP 1: Does the patient require help to understand complex and abstract ideas (such as current events, finan bradley, discharge planning, medical issues, relationships, etc)? No. COMPREHENSION - STEP 2: Does the patient need extra time, require an assistive device (such as glasses for visual comprehensi on or a hearing aid for auditory comprehension) or does s/he have mild difficulty understanding compl ex and abstract information? No. COMPREHENSION - SCORE: 7-IND EXPRESSION EXPRESSION: TYPE: Both EXPRESSION - STEP 1: Does the patient require help expressing complex and abstract ideas (such as current events, finances , discharge planning, medical issues, relationships, etc)? No. EXPRESSION - STEP 2: Does the patient need extra time, require an assistive device (such as augmentive communication syste m or a communication board), OR does s/he have mild difficulty expressing complex and abstract ideas (including mild dysarthria or mild word-find problems)? No. EXPRESSION - SCORE: 7-IND SOCIAL INTERACTION: SOCIAL INTERACTION - STEP 1: Does the patient require a helper to interact with others in social and therapeutic situations? No. SOCIAL INTERACTION - STEP 2: Does the patient need extra time in social situations, OR does s/he interact with staff, other patien ts, and family members ONLY in structured environments, OR does s/he require medication for social in teraction? Yes, patient needs extra time SOCIAL INTERACTION - SCORE: 6-NELLIE PROBLEM SOLVING: PROBLEM SOLVING - STEP 1: Does the patient need help to solve complex problems such as managing a checking account or confronti ng interpersonal problems? No. PROBLEM SOLVING - STEP 2: Does the patient require extra time to make decisions or solve problems, OR does s/he have slight dif ficulty reading, initiating, or self-correcting in unfamiliar situations? Yes, patient needs extra ti me. PROBLEM SOLVING - SCORE: 6-NELLIE MEMORY: MEMORY - STEP 1: Does the patient need help to remember frequently encountered people, daily routines, and executing r equests? No. MEMORY - STEP 2: Does the patient have slight difficulty recognizing frequently encountered people, daily routines, or executing requests without the need for repetition or using self-initiated or environmental cues to remember? Yes. MEMORY - SCORE: 6-NELLIE SIGNATURE PANEL: The following modified sections: Eating - Score, Grooming - Score, Bathing - Score, Dressing - Upper Body - Score, Dressing - Lower Body - Score, Toileting - Score, Transfers: Bed, Chair, Wheelchair - S core, Transfers: Toilet - Score, Transfers: Tub - Score, Transfers: Shower - Score, Comprehension - S core, Expression - Score, Social Interaction - Score, Problem Solving - Score, Memory - Score were [e lectronically] signed by Maryana Velasco OT on TueNov 28 2017 16:35:29 T-0500 ([facility] Daylight T araceli)
[2017-11-28] MEDS: RIVAROXABAN 15 MG TABLET PO SCH (17:12)
--- NOTE | 2017-11-28 18:02 | R.PN ---
ENCOUNTER DATE AND TIME: 11/28/2017 17:53 (CDT) NAME MYRA LE DATE OF : 1935 DATE OF ADMISSION: 11/22/2017 22:21 (CDT) COLON ADENOCARCINOMAChronic Renal DiseaseCOPDPVDParkinson's DiseaseSUBJECTIVE: Pt denied any Shortness of Breath. Pt denied any depression. Chest x-ray done 11-28-17 shows improvement versus 10-13-17. Mild tachycardia with normal blood pressure s. Afebrile with normal WBC 2 days ago. Will check procalcitonin and lactate in the AM. ADLs done with standby assistance to independence. VITAL SIGNS Temperature: 98.1 F SBP/DBP: 118/55 Pulse: 110 Resp: 16 MEDICATION ALLERGIES: No Known Drug Allergies (NKDA) ENVIRONMENTAL ALLERGIES: None Known - Substance Allergies None Known - Other Allergies None Known NURSING: - Shower allowing shower PRECAUTIONS: - Fall Precaution Bed and chair alarm ACTIVITIES OOB only with supervision THERAPIES: - Occupational Therapy Evaluate and Treat. - Speech Therapy Memory Strategies. Speech Intelligibility Training. - Physical Therapy Evaluate and Treat. PHYSICAL EXAM - Gen Alert and awake Lying in bed No apparent distress Oriented to: person, time, and place - Skin No skin breakdown. No abnormalities - Eyes No abnormalities - ENMT No abnormalities - Neck No abnormalities - CVS RRR - Chest Clear - Abd Soft - GI Non distended Deferred - No abnormalities - Ext Mild bilateral lower extremity edema. - MSK 4+/5 weakness in both lower extremities. - Neuro No focal deficits - Psych No abnormalities ASSESSMENT: Pt. is a 82 yo Right-handed white male.On 11/10/2017 he was admitted to [facility] with diagnosis COLON ADENOCARCINOMA.His impairment category is Medically Complex Conditions 17 - Other Medically Complex Conditions (17.9).Pre-morbidly, Pt. was independent/mod-I in Social Cognitio n, Self-Care, Locomotion, Sphincter Control, Transfers Control, and Communication; and he had good Sp hincter Control.Currently, he has deficits of Balance, Locomotion, Endurance, Safety Awareness, Trans fers Control, and Self-Care.Pt. is now referred to [facility] for acute in-pat ient rehabilitation in order to maximize patient's functional independence in activities of daily maria luisa ing, strength, ROM, and mobility.- Rehab Goal Patient has realistic goal of being discharged at assistance level 6-Katheryn to reside at Home with Fam nahomy/Relatives. MDM/PLAN: - Physical Therapy Gait dysfunction - to improve, our physical therapists will perform initial evaluation of pt's statu s upon admission and devise an individualized program for Gait Training, and Wheel Chair mobility Inability to transfer - to improve, our physical therapists will perform initial evaluation of pt's status upon admission and devise an individualized program for Bed mobility Need for home safety evaluation - to improve, our physical therapists will perform initial evaluatio n of pt's status upon admission and devise an individualized program for Home Evaluation Need in caregiver upon discharge - to improve, our physical therapists will perform initial evaluati on of pt's status upon admission and devise an individualized program for Caregiver Training New precaution - to improve, our physical therapists will perform initial evaluation of pt's status upon admission and devise an individualized program for Patient precaution education Edema - to improve, our physical therapists will perform initial evaluation of pt's status upon admis garry and devise an individualized program for Elevation Training, and Lymphedema Therapy Pain - to improve, our physical therapists will perform initial evaluation of pt's status upon admis garry and devise an individualized program for Modalities Poor balance - to improve, our physical therapists will perform initial evaluation of pt's status up on admission and devise an individualized program for Balance Training Poor endurance - to improve, our physical therapists will perform initial evaluation of pt's status upon admission and devise an individualized program for Endurance Training Weakness - to improve, our physical therapists will perform initial evaluation of pt's status upon a dmission and devise an individualized program for Aquatic Therapy, Neuromuscular Reeducation, and Str engthening Achieving independence - to improve, our physical therapists will perform initial evaluation of pt's status upon admission and devise an individualized program for Community Reintegration Activities - Occupational Therapy ADL deficits - to improve, our occupation therapists will perform initial evaluation of pt's status upon admission and devise an individualized program for Bathing, Bed mobility, Community Reintegratio n, Cooking, Dressing, Eating, Fine Motor Skills, Grooming, Homemaking, Kitchen Mobility, Laundry, Pat ient Education, Safety Awareness, Splinting - Positioning, Transfers(Toilet, Tub, Shower), and Wheel Chair Management Need for senior care assistant - to improve, our occupation therapists will perform initial evaluation of pt's status upon admission and devise an individualized program for Caregiver Training Weakness - to improve, our occupation therapists will perform initial evaluation of pt's status upon admission and devise an individualized program for Aquatic Therapy, Balance, Endurance, UE ROM, and UE strengthening - Diet Type Continue Low Fiber - Diet - Liquid Texture Continue Regular - Tube Feed Continue N/A - Fall Precaution Bed and chair alarm - Diet - Solid Texture Continue Regular Continue GI Soft - Shower allowing shower FUNCTIONAL STATUS: UPDATED AT WEEKLY TEAM CONFERENCE - Bladder Same accident frequency: 7-Ind - No accidents in the past 7 days - Bowel Same accident frequency: 7-Ind - No accidents in the past 7 days - Walking Same score based on distance walked: 1(<=50ft) - Wheelchair Same score based on distance traveled: 0(N/A) FUNCTIONAL STATUS: - Self-Care A. Eating Ind B. Grooming sup C. Bathing Magaly D. Dressing - Upper Magaly E. Dressing - Lower Magaly F. Toileting Magaly - Sphincter Control G: Bladder control Ind H: Bowel control Ind - Transfers Control I. Bed/Chair/Wheelchair modA J. Toilet modA K. Tub/Shower ADNO - Locomotion L. Walk/Wheelchair (B) modA M. Stairs ADNO - Communication N. Comprehension (B) Ind O. Expression (B) Ind - Social Cognition P. Social Interaction Ind Q. Problem Solving Ind R. Memory Ind - Endurance Fair - Balance Fair - Safety Awareness Fair CURRENT [facility]. DEFICITS: Balance, Locomotion, Endurance, Safety Awareness, Transfers Control, and Self-Care SIGNATURE PANEL: (CDT)
[2017-11-28] MEDS: DOCUSATE NA/SENNA CONC 1 TAB PO PRN (20:49)
[2017-11-29] MEDS: ALBUTEROL 2.5 MG/3 ML NEB SOL NEB SCH ×4 (02:42→19:39)
[2017-11-29] MEDS: IPRATROPIUM BROM 0.5MG/2.5ML NEB SCH ×4 (02:42→19:39)
--- NOTE | 2017-11-29 03:07 | FAST ---
SHIFT START DATE/TIME: 11/28/2017 19:00 (CDT) SHIFT END DATE/TIME: 11/29/2017 07:00 (CDT) NAME MYRA LE DATE OF : 1935 DATE OF ADMISSION: 11/22/2017 22:21 (CDT) PHONE: AGE: 82 SSN# [id number] GENDER: Male ENCOUNTER PHYSICIAN: Dr. Edilberto Colbert M.D. ADMISSION DIAGNOSIS: - Medically Complex Conditions 17 - Other Medically Complex Conditions (17.9) COLON ADENOCARCINOMA. Chronic Renal Disease. COPD. PVD. Parkinson's Disease. EATING: Activity did not occur on this shift EATING - SCORE: 0-UNK GROOMING: Wash, rinse, and dry hands GROOMING - STEP 1: Does the patient require assistance when grooming? Yes. GROOMING - STEP 2: Does the patient require the assistance of a helper? Yes. GROOMING - STEP 3: How much assistance does the patient require from the helper? Cuing, coaxing, instructions, or encour agement for completion of grooming GROOMING - SCORE: 5-SUP BATHING: Activity did not occur on this shift BATHING - SCORE: 0-UNK DRESSING - UPPER BODY: Patient is not dressing in public clothing ARTICLES SCORE Total number of steps: 0 DRESSING - UPPER BODY - SCORE: 0-UNK DRESSING - LOWER BODY: Patient is not dressing in public clothing ARTICLES SCORE Total number of steps: 0 DRESSING - LOWER BODY - SCORE: 0-UNK TOILETING: TOILETING - STEP 1: Does the patient require assistance with toileting? Yes. TOILETING - STEP 2: Does the patient require the assistance of a helper? Yes. TOILETING - STEP 3: How much assistance does the patient require from the helper? Hands-on assistance from the helper TOILETING - STEP 4: Of the 3 tasks: 1) Adjusting clothing prior to use, 2) Cleansing of perineal area, 3) Adjusting clot flor after use; How many tasks does the patient perform WITHOUT assistance of the helper? No tasks; h glenroy performs all three tasks TOILETING - SCORE: 1-DEP BLADDER MANAGEMENT: BLADDER MANAGEMENT - STEP 1: Does the patient control the bladder completely and intentionally without equipment or devices or med ications, and is always continent? No. BLADDER MANAGEMENT - STEP 2: Does the patient require the assistance of a helper? Yes. BLADDER MANAGEMENT - STEP 3: How much assistance does the patient require from the helper? Patient requires contact assistance fro m the helper BLADDER MANAGEMENT - STEP 4: How much contact assistance does the patient require from the helper? Patient requires minimal assist ance to maintain an external device - by positioning, and the patient performs 75% or more of bladder management tasks, while the helper provides less than 25% of the assistance to position patient on / off bedpan BLADDER MANAGEMENT - SCORE: 4-MIN BOWEL MANAGEMENT: BOWEL MANAGEMENT - STEP 1: Does the patient control bowels completely and intentionally without equipment devices or medications AND is always continent? No. BOWEL MANAGEMENT - STEP 2: Does the patient require the assistance of a helper? Yes. BOWEL MANAGEMENT - STEP 3: How much assistance does the patient require from the helper? Patient requires minimal contact assist ance / incidental help to maintain an external device such as removing / applying wafer BOWEL MANAGEMENT - SCORE: 4-MIN TRANSFERS: BED, CHAIR, WHEELCHAIR: TRANSFERS: BED, CHAIR, WHEELCHAIR - STEP 1: Does the patient require assistance with bed, chair, or wheelchair transfers? Yes. TRANSFERS: BED, CHAIR, WHEELCHAIR - STEP 2: Does the patient require the assistance of a helper? Yes. TRANSFERS: BED, CHAIR, WHEELCHAIR - STEP 3: How much assistance does the patient require from the helper? Lifting of the legs TRANSFERS: BED, CHAIR, WHEELCHAIR - STEP 4: How many legs does the patient require the helper to lift? both legs TRANSFERS: BED, CHAIR, WHEELCHAIR - SCORE: 3-MOD TRANSFERS: TOILET: TRANSFERS: TOILET - STEP 1: Does the patient require assistance with toilet transfers? Yes. TRANSFERS: TOILET - STEP 2: Does the patient require the assistance of a helper? Yes. TRANSFERS: TOILET - STEP 3: How much assistance does the patient require from the helper? Patient performs half or more of the tr ansferring tasks TRANSFERS: TOILET - STEP 4: Does the patient need only incidental help such as contact guard or steadying during toilet transfer? No. Patient needs more than incidental help TRANSFERS: TOILET - SCORE: 3-MOD TRANSFERS: SHOWER: Activity did not occur on this shift TRANSFERS: SHOWER - SCORE: 0-UNK TRANSFERS: TUB: Activity did not occur on this shift TRANSFERS: TUB - SCORE: 0-UNK LOCOMOTION: WALK: Activity did not occur on this shift LOCOMOTION: WALK - SCORE: 0-UNK LOCOMOTION: WHEELCHAIR: Activity did not occur on this shift LOCOMOTION: WHEELCHAIR - SCORE: 0-UNK COMPREHENSION: COMPREHENSION: TYPE: Both COMPREHENSION - STEP 1: Does the patient require help to understand complex and abstract ideas (such as current events, finan bradley, discharge planning, medical issues, relationships, etc)? Yes. COMPREHENSION - STEP 2: Does the patient require help to understand questions or statements about basic needs or ideas (such as hunger, thirst, sleep, safety, daily schedule, room location, or discomfort) half or more of the t araceli? No. COMPREHENSION - STEP 3: How often does the patient need help to understand directions and conversation about basic needs? 10% - 24% of the time COMPREHENSION - SCORE: 4-MIN EXPRESSION EXPRESSION: TYPE: Both EXPRESSION - STEP 1: Does the patient require help expressing complex and abstract ideas (such as current events, finances , discharge planning, medical issues, relationships, etc)? Yes. EXPRESSION - STEP 2: Does the patient require help to express basic necessities or ideas (such as hunger, thirst, sleep, s afety, daily schedule, room location, or discomfort) half or more of the time? No. EXPRESSION - STEP 3: How often does the patient need help to express directions and conversation about basic needs? 10-24% of the time EXPRESSION - SCORE: 4-MIN SOCIAL INTERACTION: SOCIAL INTERACTION - STEP 1: Does the patient require a helper to interact with others in social and therapeutic situations? No. SOCIAL INTERACTION - STEP 2: Does the patient need extra time in social situations, OR does s/he interact with staff, other patien ts, and family members ONLY in structured environments, OR does s/he require medication for social in teraction? Yes, patient needs extra time SOCIAL INTERACTION - SCORE: 6-NELLIE PROBLEM SOLVING: PROBLEM SOLVING - STEP 1: Does the patient need help to solve complex problems such as managing a checking account or confronti ng interpersonal problems? Yes. PROBLEM SOLVING - STEP 2: Does the patient solve basic routine problems half or more of the time? Yes. PROBLEM SOLVING - STEP 3: How often does the patient need help to solve basic routine problems? 10%-24% of the time PROBLEM SOLVING - SCORE: 4-MIN MEMORY: MEMORY - STEP 1: Does the patient need help to remember frequently encountered people, daily routines, and executing r equests? No. MEMORY - STEP 2: Does the patient have slight difficulty recognizing frequently encountered people, daily routines, or executing requests without the need for repetition or using self-initiated or environmental cues to remember? Yes. MEMORY - SCORE: 6-NELLIE SIGNATURE PANEL: The following modified sections: Eating - Score, Grooming - Score, Dressing - Upper Body - Score, Jewel ssing - Lower Body - Score, Toileting - Score, Bladder Management - Score, Bowel Management - Score, Transfers: Bed, Chair, Wheelchair - Score, Transfers: Toilet - Score, Transfers: Shower - Score, Valdez sfers: Tub - Score, Locomotion: Walk - Score, Locomotion: Wheelchair - Score, Comprehension - Score, Expression - Score, Social Interaction - Score, Problem Solving - Score, Memory - Score were [electro nically] signed by Margarita Raza CNA on TueNov 29 2017 03:06:38 GMT-0500 (Central Daylight Time)
[2017-11-29] MEDS: ARFORMOTEROL TARTRATE 15 MCG/2 ML VIAL.NEB NEB SCH ×2 (07:11→19:39)
[2017-11-29] MEDS: BUDESONIDE 0.25 MG/2 ML NEB NEB SCH (07:11)
[2017-11-29] MEDS: LIDOCAINE 5% PATCH TOP SCH (08:37)
[2017-11-29] MEDS: PANTOPRAZOLE 40MG TABLET PO SCH ×2 (08:38→16:59)
[2017-11-29] MEDS: CRANBERRY FRUIT EXTRACT 200 MG CAP PO SCH ×2 (08:38→20:49)
[2017-11-29] MEDS: GABAPENTIN 300 MG CAP PO SCH ×2 (08:38→20:50)
[2017-11-29] MEDS: CARBIDOPA/LEVODOPA 25/100 TAB PO SCH ×2 (08:39→20:50)
[2017-11-29] MEDS: FE SULF/FA/VIT B COMP & C TAB PO SCH (08:39)
[2017-11-29] MEDS: FUROSEMIDE 40 MG TABLET PO SCH (08:39)
[2017-11-29] MEDS: PENTOXIFYLLINE ER 400 MG TAB PO SCH ×3 (08:39→16:58)
[2017-11-29] MEDS: TOPIRAMATE 25 MG TAB PO SCH ×2 (08:39→20:49)
[2017-11-29] MEDS: FERROUS SULFATE 325 MG TAB PO SCH ×3 (08:39→20:49)
[2017-11-29] MEDS: predniSONE 10 MG TAB PO SCH (08:40)
[2017-11-29] MEDS: METOPROLOL TAR 50 MG TAB PO SCH ×2 (08:40→16:58)
--- NOTE | 2017-11-29 08:44 | P.CNS ---
Date of Consult: 11/29/17 Reason for Consult: onychomycosis Requesting Physician: Edilberto Colbert Chief Complaint: Painful toenails Allergies No Known Allergies Allergy (Verified 11/23/17 02:41) Home Medications: Pentoxifylline 400 mg PO TIDWM 11/21/15 Losartan Potassium [Cozaar*] 50 mg PO [id number] 04/24/16 Topiramate 25 mg PO BID 06/17/17 Budesonide [Pulmicort*] 0.25 mg IH DAILY 07/15/17 Diltiazem HCl [Cartia Xt] 180 mg PO [id number] 07/15/17 Tiotropium [Spiriva Handihaler*] 1 sprays IH DAILY #1 inh 07/21/17 Albuterol Sulfate [Proair Respiclick] 2 puff IH QID 09/29/17 Metoprolol Tartrate 50 mg PO BIDWM 09/29/17 Rivaroxaban [Xarelto*] 15 mg PO DAILY 09/29/17 Diphenhydramine [Benadryl Tab/Cap] 25 mg PO BEDTIME 11/02/17 Polyethylene Glycol 3350 [Miralax] 17 gm PO PRN PRN 11/02/17 predniSONE [Deltasone] 10 mg PO DAILY 11/02/17 Carbidopa/Levodopa [Carbidopa-Levo 25-100 mg Odt] 1 tab PO BID 11/11/17 Ferrous Sulfate [Ferrous Sulfate*] 325 mg PO TID 11/11/17 Formoterol Fumarate 1 inhaler IH DAILY 11/11/17 Arformoterol Tartrate [Brovana] 15 mcg IH BIDRESP 11/23/17 Furosemide [Lasix] 40 mg PO DAILY 11/23/17 Pantoprazole Sodium [Protonix] 40 mg PO DAILY 11/23/17 - Past Medical/Surgical History Diabetic: No -: parkinsons -: copd -: afib -: HTN -: hyperlipidemia -: colon cancer -: GERD -: Atrial fibrillation, chronic anti coagulation -: GERD -: Anemia of chronic disease -: Chronic renal disease -: right ing. 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 - Family History Father Medical History: Heart disease, Hypertension Mother Medical History: Heart disease, Hypertension Brother Medical History: Heart disease daughter Medical History: Cancer Notes: , throat lung mouth breast - Social History Smoking Status: Former smoker (quit 3 years ago) Alcohol use: No CD- Drugs: No Caffeine use: Yes Place of Residence: Home Review of Systems 10-point ROS is otherwise unremarkable Physical Examination Temp Pulse Resp BP Pulse Ox 97.8 F 100 H 18 121/58 L 97 11/28/17 20:00 11/29/17 08:40 11/28/17 20:00 11/29/17 08:40 11/28/17 20:00 General: Alert, In no apparent distress, Oriented x3 Cardiovascular: No edema, Abnormal pulses Capillary refill: <2 Seconds Musculoskeletal: No clubbing, No swelling, No contractures, No erythema, No tenderness, No warmth Integumentary: Other (absent hair growth bilateral. Thickened hypertrophic nails with subungual debris x 10) Neurological: Sensation intact - Problems (1) Tinea unguium Current Visit: Yes Status: Acute (2) Generalized atherosclerosis Current Visit: Yes Status: Acute Conclusions/Impression: onychomycosis 1-5 bilateral feet Physician Review: Patient Assessed, Agree with Above Assessment and Plan Time Spent Managing Pts care (In Minutes): 30
[2017-11-29] MEDS: HYDROCODONE/APAP 5/325 MG TAB PO PRN ×2 (09:26→16:59)
[2017-11-29] MEDS: SUCRALFATE 1 GM TABLET PO SCH ×4 (09:27→20:49)
[2017-11-29] MEDS: PROMOD 30 ML DOSE PO SCH ×2 (09:27→20:50)
[2017-11-29] MEDS: SUPLENA IMPAIRED RENAL 237 ML CAN PO SCH ×2 (09:27→20:50)
[2017-11-29] MEDS: LOSARTAN POTASSIUM 50 MG TABLET PO SCH (12:31)
[2017-11-29] MEDS: DILTIAZEM HCL 180 MG SR CAP PO SCH ×2 (14:44→15:00)
--- NOTE | 2017-11-29 15:13 | FAST ---
SHIFT START DATE/TIME: 11/29/2017 07:00 (CDT) SHIFT END DATE/TIME: 11/29/2017 19:00 (CDT) NAME MYRA LE DATE OF : 1935 DATE OF ADMISSION: 11/22/2017 22:21 (CDT) PHONE: AGE: 82 N# [id number] GENDER: Male ENCOUNTER PHYSICIAN: Dr. Edilberto Colbert M.D. ADMISSION DIAGNOSIS: - Medically Complex Conditions 17 - Other Medically Complex Conditions (17.9) COLON ADENOCARCINOMA. Chronic Renal Disease. COPD. PVD. Parkinson's Disease. EATING: EATING - STEP 1: Does the patient require assistance when eating? Yes. EATING - STEP 2: Does the patient require the assistance of a helper? No, patient only requires an assistive device, O R s/he takes more than reasonable time to eat, OR there is a safety concern, OR s/he requires modifie d food consistency EATING - SCORE: 6-NELLIE GROOMING: Activity did not occur on this shift GROOMING - SCORE: 0-UNK BATHING: Activity did not occur on this shift BATHING - SCORE: 0-UNK DRESSING - UPPER BODY: Activity did not occur on this shift ARTICLES SCORE Total number of steps: 0 DRESSING - UPPER BODY - SCORE: 0-UNK DRESSING - LOWER BODY: Activity did not occur on this shift ARTICLES SCORE Total number of steps: 0 DRESSING - LOWER BODY - SCORE: 0-UNK TOILETING: TOILETING - STEP 1: Does the patient require assistance with toileting? Yes. TOILETING - STEP 2: Does the patient require the assistance of a helper? Yes. TOILETING - STEP 3: How much assistance does the patient require from the helper? Only supervision TOILETING - SCORE: 5-SUP BLADDER MANAGEMENT: BLADDER MANAGEMENT - STEP 1: Does the patient control the bladder completely and intentionally without equipment or devices or med ications, and is always continent? No. BLADDER MANAGEMENT - STEP 2: Does the patient require the assistance of a helper? Yes. BLADDER MANAGEMENT - STEP 3: How much assistance does the patient require from the helper? Only set-up of equipment - such as plac ing it within reach of the patient or emptying a device - to maintain either satisfactory voiding pat tern or managing an external device, such as an absorbent pad, ileal device, or catheter BLADDER MANAGEMENT - SCORE: 5-SUP BLADDER MANAGEMENT - FREQUENCY OF ACCIDENTS: BLADDER MANAGEMENT(FA) - STEP 1: How many accidents has the patient had during the current shift? 0 BOWEL MANAGEMENT: Activity did not occur on this shift BOWEL MANAGEMENT - SCORE: 7-IND BOWEL MANAGEMENT - FREQUENCY OF ACCIDENTS: BOWEL MANAGEMENT(FA) - STEP 1: How many accidents has the patient had during the current shift? 0 TRANSFERS: BED, CHAIR, WHEELCHAIR: TRANSFERS: BED, CHAIR, WHEELCHAIR - STEP 1: Does the patient require assistance with bed, chair, or wheelchair transfers? Yes. TRANSFERS: BED, CHAIR, WHEELCHAIR - STEP 2: Does the patient require the assistance of a helper? Yes. TRANSFERS: BED, CHAIR, WHEELCHAIR - STEP 3: How much assistance does the patient require from the helper? Steadying/guiding assistance TRANSFERS: BED, CHAIR, WHEELCHAIR - SCORE: 4-MIN TRANSFERS: TOILET: TRANSFERS: TOILET - STEP 1: Does the patient require assistance with toilet transfers? Yes. TRANSFERS: TOILET - STEP 2: Does the patient require the assistance of a helper? Yes. TRANSFERS: TOILET - STEP 3: How much assistance does the patient require from the helper? Only supervision, cuing, coaxing, OR he lp to set out transfer equipment or to lock brakes and/or lift foot rests TRANSFERS: TOILET - SCORE: 5-SUP TRANSFERS: SHOWER: Activity did not occur on this shift TRANSFERS: SHOWER - SCORE: 0-UNK TRANSFERS: TUB: Activity did not occur on this shift TRANSFERS: TUB - SCORE: 0-UNK LOCOMOTION: WALK: Activity did not occur on this shift LOCOMOTION: WALK - SCORE: 0-UNK LOCOMOTION: WHEELCHAIR: LOCOMOTION: WHEELCHAIR - STEP 1: Does the patient need help to go 150 feet in a wheelchair? Yes. LOCOMOTION: WHEELCHAIR - STEP 2: How much assistance does the patient need from the helper? More than incidental help LOCOMOTION: WHEELCHAIR - SCORE: 3-MOD COMPREHENSION: COMPREHENSION: TYPE: Both COMPREHENSION - STEP 1: Does the patient require help to understand complex and abstract ideas (such as current events, finan bradley, discharge planning, medical issues, relationships, etc)? No. COMPREHENSION - STEP 2: Does the patient need extra time, require an assistive device (such as glasses for visual comprehensi on or a hearing aid for auditory comprehension) or does s/he have mild difficulty understanding compl ex and abstract information? Yes. COMPREHENSION - SCORE: 6-NELLIE EXPRESSION EXPRESSION: TYPE: Both EXPRESSION - STEP 1: Does the patient require help expressing complex and abstract ideas (such as current events, finances , discharge planning, medical issues, relationships, etc)? No. EXPRESSION - STEP 2: Does the patient need extra time, require an assistive device (such as augmentive communication syste m or a communication board), OR does s/he have mild difficulty expressing complex and abstract ideas (including mild dysarthria or mild word-find problems)? Yes. EXPRESSION - SCORE: 6-NELLIE SOCIAL INTERACTION: SOCIAL INTERACTION - STEP 1: Does the patient require a helper to interact with others in social and therapeutic situations? No. SOCIAL INTERACTION - STEP 2: Does the patient need extra time in social situations, OR does s/he interact with staff, other patien ts, and family members ONLY in structured environments, OR does s/he require medication for social in teraction? Yes, patient needs extra time SOCIAL INTERACTION - SCORE: 6-NELLIE PROBLEM SOLVING: PROBLEM SOLVING - STEP 1: Does the patient need help to solve complex problems such as managing a checking account or confronti ng interpersonal problems? Yes. PROBLEM SOLVING - STEP 2: Does the patient solve basic routine problems half or more of the time? Yes. PROBLEM SOLVING - STEP 3: How often does the patient need help to solve basic routine problems? Less than 10% of the time PROBLEM SOLVING - SCORE: 5-SUP MEMORY: MEMORY - STEP 1: Does the patient need help to remember frequently encountered people, daily routines, and executing r equests? No. MEMORY - STEP 2: Does the patient have slight difficulty recognizing frequently encountered people, daily routines, or executing requests without the need for repetition or using self-initiated or environmental cues to remember? Yes. MEMORY - SCORE: 6-NELLIE SIGNATURE PANEL: The following modified sections: Eating - Score, Grooming - Score, Bathing - Score, Dressing - Upper Body - Score, Dressing - Lower Body - Score, Toileting - Score, Bladder Management - Score, Bowel Man agement - Score, Transfers: Bed, Chair, Wheelchair - Score, Transfers: Toilet - Score, Transfers: Lisa wer - Score, Transfers: Tub - Score, Locomotion: Walk - Score, Locomotion: Wheelchair - Score, Compre hension - Score, Expression - Score, Social Interaction - Score, Problem Solving - Score, Memory - Sc ore were [electronically] signed by Sonia Ford C.N.A. on TueNov 29 2017 15:12:48 T-0500 (Centra l Daylight Time)
[2017-11-29] MEDS: RIVAROXABAN 15 MG TABLET PO SCH (16:58)
--- NOTE | 2017-11-29 21:50 | R.PN ---
ENCOUNTER DATE AND TIME: 11/29/2017 21:46 (CDT) NAME MYRA LE DATE OF : 1935 DATE OF ADMISSION: 11/22/2017 22:21 (CDT) COLON ADENOCARCINOMAChronic Renal DiseaseCOPDPVDParkinson's DiseaseSUBJECTIVE: Pt denied any Shortness of Breath. Pt denied any depression. Chest x-ray done 11-28-17 shows improvement versus 10-13-17. Mild tachycardia with normal blood pressure s. Afebrile with normal WBC 2 days ago. Ambulated total of 250' with standby assistance. Lactate and procalcitonin are normal. ADLs done with standby assistance to independence. VITAL SIGNS Temperature: 98.1 F SBP/DBP: 110/58 Pulse: 88 Resp: 16 MEDICATION ALLERGIES: No Known Drug Allergies (NKDA) ENVIRONMENTAL ALLERGIES: None Known - Substance Allergies None Known - Other Allergies None Known NURSING: - Shower allowing shower PRECAUTIONS: - Fall Precaution Bed and chair alarm ACTIVITIES OOB only with supervision THERAPIES: - Occupational Therapy Evaluate and Treat. - Speech Therapy Memory Strategies. Speech Intelligibility Training. - Physical Therapy Evaluate and Treat. PHYSICAL EXAM - Gen Alert and awake Lying in bed No apparent distress Oriented to: person, time, and place - Skin No skin breakdown. No abnormalities - Eyes No abnormalities - ENMT No abnormalities - Neck No abnormalities - CVS RRR - Chest Clear - Abd Soft - GI Non distended Deferred - No abnormalities - Ext Mild bilateral lower extremity edema. - MSK 4+/5 weakness in both lower extremities. - Neuro No focal deficits - Psych No abnormalities ASSESSMENT: Pt. is a 82 yo Right-handed white male.On 11/10/2017 he was admitted to [facility] with diagnosis COLON ADENOCARCINOMA.His impairment category is Medically Complex Conditions 17 - Other Medically Complex Conditions (17.9).Pre-morbidly, Pt. was independent/mod-I in Social Cognitio n, Self-Care, Locomotion, Sphincter Control, Transfers Control, and Communication; and he had good Sp hincter Control.Currently, he has deficits of Balance, Locomotion, Endurance, Safety Awareness, Trans fers Control, and Self-Care.Pt. is now referred to [facility] for acute in-pat ient rehabilitation in order to maximize patient's functional independence in activities of daily maria luisa ing, strength, ROM, and mobility.- Rehab Goal Patient has realistic goal of being discharged at assistance level 6-Katheryn to reside at Home with Fam nahomy/Relatives. MDM/PLAN: - Physical Therapy Gait dysfunction - to improve, our physical therapists will perform initial evaluation of pt's statu s upon admission and devise an individualized program for Gait Training, and Wheel Chair mobility Inability to transfer - to improve, our physical therapists will perform initial evaluation of pt's status upon admission and devise an individualized program for Bed mobility Need for home safety evaluation - to improve, our physical therapists will perform initial evaluatio n of pt's status upon admission and devise an individualized program for Home Evaluation Need in caregiver upon discharge - to improve, our physical therapists will perform initial evaluati on of pt's status upon admission and devise an individualized program for Caregiver Training New precaution - to improve, our physical therapists will perform initial evaluation of pt's status upon admission and devise an individualized program for Patient precaution education Edema - to improve, our physical therapists will perform initial evaluation of pt's status upon admi ssion and devise an individualized program for Elevation Training, and Lymphedema Therapy Pain - to improve, our physical therapists will perform initial evaluation of pt's status upon admis garry and devise an individualized program for Modalities Poor balance - to improve, our physical therapists will perform initial evaluation of pt's status up on admission and devise an individualized program for Balance Training Poor endurance - to improve, our physical therapists will perform initial evaluation of pt's status upon admission and devise an individualized program for Endurance Training Weakness - to improve, our physical therapists will perform initial evaluation of pt's status upon a dmission and devise an individualized program for Aquatic Therapy, Neuromuscular Reeducation, and Str engthening Achieving independence - to improve, our physical therapists will perform initial evaluation of pt's status upon admission and devise an individualized program for Community Reintegration Activities - Occupational Therapy ADL deficits - to improve, our occupation therapists will perform initial evaluation of pt's status upon admission and devise an individualized program for Bathing, Bed mobility, Community Reintegratio n, Cooking, Dressing, Eating, Fine Motor Skills, Grooming, Homemaking, Kitchen Mobility, Laundry, Pat ient Education, Safety Awareness, Splinting - Positioning, Transfers(Toilet, Tub, Shower), and Wheel Chair Management Need for urgent care physician - to improve, our occupation therapists will perform initial evaluation of pt's status upon admission and devise an individualized program for Caregiver Training Weakness - to improve, our occupation therapists will perform initial evaluation of pt's status upon admission and devise an individualized program for Aquatic Therapy, Balance, Endurance, UE ROM, and UE strengthening - Diet Type Continue Low Fiber - Diet - Liquid Texture Continue Regular - Tube Feed Continue N/A - Fall Precaution Bed and chair alarm - Diet - Solid Texture Continue Regular Continue GI Soft - Shower allowing shower FUNCTIONAL STATUS: UPDATED AT WEEKLY TEAM CONFERENCE - Bladder Same accident frequency: 7-Ind - No accidents in the past 7 days - Bowel Same accident frequency: 7-Ind - No accidents in the past 7 days - Walking Same score based on distance walked: 1(<=50ft) - Wheelchair Same score based on distance traveled: 0(N/A) FUNCTIONAL STATUS: - Self-Care A. Eating Ind B. Grooming sup C. Bathing Magaly D. Dressing - Upper Magaly E. Dressing - Lower Magaly F. Toileting Magaly - Sphincter Control G: Bladder control Ind H: Bowel control Ind - Transfers Control I. Bed/Chair/Wheelchair modA J. Toilet modA K. Tub/Shower ADNO - Locomotion L. Walk/Wheelchair (B) modA M. Stairs ADNO - Communication N. Comprehension (B) Ind O. Expression (B) Ind - Social Cognition P. Social Interaction Ind Q. Problem Solving Ind R. Memory Ind - Endurance Fair - Balance Fair - Safety Awareness Fair [facility] DEFICITS: Balance, Locomotion, Endurance, Safety Awareness, Transfers Control, and Self-Care SIGNATURE PANEL: (CDT)
[2017-11-30] MEDS: ALBUTEROL 2.5 MG/3 ML NEB SOL NEB SCH ×4 (01:06→21:08)
[2017-11-30] MEDS: IPRATROPIUM BROM 0.5MG/2.5ML NEB SCH ×4 (01:06→21:07)
[2017-11-30] MEDS: HYDROCODONE/APAP 5/325 MG TAB PO PRN ×3 (02:37→15:55)
[2017-11-30 06:18] LABS: Potassium 3.3 mmol/L (3.5-5.1)
[2017-11-30] MEDS: BUDESONIDE 0.25 MG/2 ML NEB NEB SCH (07:28)
[2017-11-30] MEDS: ARFORMOTEROL TARTRATE 15 MCG/2 ML VIAL.NEB NEB SCH ×2 (07:28→21:07)
[2017-11-30] MEDS: METOPROLOL TAR 50 MG TAB PO SCH ×2 (08:00→16:58)
[2017-11-30] MEDS: DILTIAZEM HCL 180 MG SR CAP PO SCH (08:00)
[2017-11-30] MEDS: FUROSEMIDE 40 MG TABLET PO SCH (08:00)
[2017-11-30] MEDS: LOSARTAN POTASSIUM 50 MG TABLET PO SCH (08:00)
[2017-11-30] MEDS: LIDOCAINE 5% PATCH TOP SCH (08:15)
[2017-11-30] MEDS: CRANBERRY FRUIT EXTRACT 200 MG CAP PO SCH ×2 (08:15→20:36)
[2017-11-30] MEDS: FERROUS SULFATE 325 MG TAB PO SCH ×3 (08:15→20:37)
[2017-11-30] MEDS: PENTOXIFYLLINE ER 400 MG TAB PO SCH ×3 (08:15→16:38)
[2017-11-30] MEDS: GABAPENTIN 300 MG CAP PO SCH ×2 (08:15→20:37)
[2017-11-30] MEDS: PANTOPRAZOLE 40MG TABLET PO SCH ×2 (08:15→16:38)
[2017-11-30] MEDS: TOPIRAMATE 25 MG TAB PO SCH ×2 (08:16→20:37)
[2017-11-30] MEDS: SUCRALFATE 1 GM TABLET PO SCH ×4 (08:16→20:36)
[2017-11-30] MEDS: CARBIDOPA/LEVODOPA 25/100 TAB PO SCH ×2 (08:16→20:36)
[2017-11-30] MEDS: predniSONE 10 MG TAB PO SCH (08:16)
[2017-11-30] MEDS: FE SULF/FA/VIT B COMP & C TAB PO SCH (08:16)
[2017-11-30] MEDS: SUPLENA IMPAIRED RENAL 237 ML CAN PO SCH ×2 (08:20→20:00)
[2017-11-30] MEDS: PROMOD 30 ML DOSE PO SCH ×2 (08:20→20:35)
--- NOTE | 2017-11-30 11:41 | FAST ---
SHIFT START DATE/TIME: 11/30/2017 07:00 (CDT) SHIFT END DATE/TIME: 11/30/2017 19:00 (CDT) NAME MYRA LE DATE OF : 1935 DATE OF ADMISSION: 11/22/2017 22:21 (CDT) PHONE: AGE: 82 N# [id number] GENDER: Male ENCOUNTER PHYSICIAN: Dr. Edilberto Colbert M.D. ADMISSION DIAGNOSIS: - Medically Complex Conditions 17 - Other Medically Complex Conditions (17.9) COLON ADENOCARCINOMA. Chronic Renal Disease. COPD. PVD. Parkinson's Disease. EATING: EATING - STEP 1: Does the patient require assistance when eating? Yes. EATING - STEP 2: Does the patient require the assistance of a helper? Yes. EATING - STEP 3: Does the patient perform half or more of the eating tasks? Yes. EATING - STEP 4: Does the patient need only supervision, cuing, coaxing OR help to apply an orthosis OR help to cut fo od, open containers, pour liquids, or butter bread? Yes. EATING - SCORE: 5-SUP GROOMING: Activity did not occur on this shift GROOMING - SCORE: 0-UNK BATHING: Activity did not occur on this shift BATHING - SCORE: 0-UNK DRESSING - UPPER BODY: Activity did not occur on this shift ARTICLES SCORE Total number of steps: 0 DRESSING - UPPER BODY - SCORE: 0-UNK DRESSING - LOWER BODY: Activity did not occur on this shift ARTICLES SCORE Total number of steps: 0 DRESSING - LOWER BODY - SCORE: 0-UNK TOILETING: TOILETING - STEP 1: Does the patient require assistance with toileting? Yes. TOILETING - STEP 2: Does the patient require the assistance of a helper? Yes. TOILETING - STEP 3: How much assistance does the patient require from the helper? Hands-on assistance from the helper TOILETING - STEP 4: Of the 3 tasks: 1) Adjusting clothing prior to use, 2) Cleansing of perineal area, 3) Adjusting clot flor after use; How many tasks does the patient perform WITHOUT assistance of the helper? Three tasks with steadying assistance from the helper TOILETING - SCORE: 4-MIN BLADDER MANAGEMENT: BLADDER MANAGEMENT - STEP 1: Does the patient control the bladder completely and intentionally without equipment or devices or med ications, and is always continent? No. BLADDER MANAGEMENT - STEP 2: Does the patient require the assistance of a helper? No, patient requires and independently uses an a ssistive device, such as a urinal, bedpan, bedside commode, catheter, absorbent pad, or collecting de vice BLADDER MANAGEMENT - SCORE: 6-NELLIE BOWEL MANAGEMENT: Activity did not occur on this shift BOWEL MANAGEMENT - SCORE: 7-IND TRANSFERS: BED, CHAIR, WHEELCHAIR: TRANSFERS: BED, CHAIR, WHEELCHAIR - STEP 1: Does the patient require assistance with bed, chair, or wheelchair transfers? Yes. TRANSFERS: BED, CHAIR, WHEELCHAIR - STEP 2: Does the patient require the assistance of a helper? Yes. TRANSFERS: BED, CHAIR, WHEELCHAIR - STEP 3: How much assistance does the patient require from the helper? Steadying/guiding assistance TRANSFERS: BED, CHAIR, WHEELCHAIR - SCORE: 4-MIN TRANSFERS: TOILET: TRANSFERS: TOILET - STEP 1: Does the patient require assistance with toilet transfers? Yes. TRANSFERS: TOILET - STEP 2: Does the patient require the assistance of a helper? Yes. TRANSFERS: TOILET - STEP 3: How much assistance does the patient require from the helper? Patient performs half or more of the tr ansferring tasks TRANSFERS: TOILET - STEP 4: Does the patient need only incidental help such as contact guard or steadying during toilet transfer? No. Patient needs more than incidental help TRANSFERS: TOILET - SCORE: 3-MOD TRANSFERS: SHOWER: Activity did not occur on this shift TRANSFERS: SHOWER - SCORE: 0-UNK TRANSFERS: TUB: Activity did not occur on this shift TRANSFERS: TUB - SCORE: 0-UNK LOCOMOTION: WALK: Activity did not occur on this shift LOCOMOTION: WALK - SCORE: 0-UNK LOCOMOTION: WHEELCHAIR: Activity did not occur on this shift LOCOMOTION: WHEELCHAIR - SCORE: 0-UNK COMPREHENSION: COMPREHENSION: TYPE: Both COMPREHENSION - STEP 1: Does the patient require help to understand complex and abstract ideas (such as current events, finan bradley, discharge planning, medical issues, relationships, etc)? Yes. COMPREHENSION - STEP 2: Does the patient require help to understand questions or statements about basic needs or ideas (such as hunger, thirst, sleep, safety, daily schedule, room location, or discomfort) half or more of the t araceli? No. COMPREHENSION - STEP 3: How often does the patient need help to understand directions and conversation about basic needs? Les s than 10% of the time COMPREHENSION - SCORE: 5-SUP EXPRESSION EXPRESSION: TYPE: Both EXPRESSION - STEP 1: Does the patient require help expressing complex and abstract ideas (such as current events, finances , discharge planning, medical issues, relationships, etc)? Yes. EXPRESSION - STEP 2: Does the patient require help to express basic necessities or ideas (such as hunger, thirst, sleep, s afety, daily schedule, room location, or discomfort) half or more of the time? No. EXPRESSION - STEP 3: How often does the patient need help to express directions and conversation about basic needs? Less t marie 10% of the time EXPRESSION - SCORE: 5-SUP SOCIAL INTERACTION: SOCIAL INTERACTION - STEP 1: Does the patient require a helper to interact with others in social and therapeutic situations? Yes. SOCIAL INTERACTION - STEP 2: Does the patient interact appropriately half or more of the time? Yes. SOCIAL INTERACTION - STEP 3: How often does the patient need help to interact appropriately? Less than 10% of the time SOCIAL INTERACTION - SCORE: 5-SUP PROBLEM SOLVING: PROBLEM SOLVING - STEP 1: Does the patient need help to solve complex problems such as managing a checking account or confronti ng interpersonal problems? Yes. PROBLEM SOLVING - STEP 2: Does the patient solve basic routine problems half or more of the time? Yes. PROBLEM SOLVING - STEP 3: How often does the patient need help to solve basic routine problems? Less than 10% of the time PROBLEM SOLVING - SCORE: 5-SUP MEMORY: MEMORY - STEP 1: Does the patient need help to remember frequently encountered people, daily routines, and executing r equests? Yes. MEMORY - STEP 2: How often does the patient need help to remember frequently encountered people, daily routines, and e xecuting requests? Less than 10% of the time MEMORY - SCORE: 5-SUP SIGNATURE PANEL: The following modified sections: Eating - Score, Grooming - Score, Bathing - Score, Dressing - Upper Body - Score, Dressing - Lower Body - Score, Toileting - Score, Bladder Management - Score, Bowel Man agement - Score, Transfers: Bed, Chair, Wheelchair - Score, Transfers: Toilet - Score, Transfers: Lisa wer - Score, Transfers: Tub - Score, Locomotion: Walk - Score, Locomotion: Wheelchair - Score, Compre hension - Score, Expression - Score, Social Interaction - Score, Problem Solving - Score, Memory - Sc ore were [electronically] signed by Yossi Cotto on TueNov 30 2017 11:40:36 GMT-0500 (Central Daylight Time)
[2017-11-30] MEDS: RIVAROXABAN 15 MG TABLET PO SCH (16:38)
--- NOTE | 2017-11-30 18:59 | R.PN ---
ENCOUNTER DATE AND TIME: 11/30/2017 18:56 (CDT) NAME MYRA LE DATE OF : 1935 DATE OF ADMISSION: 11/22/2017 22:21 (CDT) COLON ADENOCARCINOMAChronic Renal DiseaseCOPDPVDParkinson's DiseaseSUBJECTIVE: Pt denied any Shortness of Breath. Pt denied any depression. Chest x-ray done 11-28-17 shows improvement versus 10-13-17. Mild tachycardia with normal blood pressure s. Afebrile with normal WBC 2 days ago. Ambulated total of 375' with standby assistance. Lactate and procalcitonin are normal. ADLs done with standby assistance to independence. VITAL SIGNS Temperature: 98.1 F SBP/DBP: 136/62 Pulse: 74 Resp: 14 MEDICATION ALLERGIES: No Known Drug Allergies (NKDA) ENVIRONMENTAL ALLERGIES: None Known - Substance Allergies None Known - Other Allergies None Known NURSING: - Shower allowing shower PRECAUTIONS: - Fall Precaution Bed and chair alarm ACTIVITIES OOB only with supervision THERAPIES: - Occupational Therapy Evaluate and Treat. - Speech Therapy Memory Strategies. Speech Intelligibility Training. - Physical Therapy Evaluate and Treat. PHYSICAL EXAM - Gen Alert and awake Lying in bed No apparent distress Oriented to: person, time, and place - Skin No skin breakdown. No abnormalities - Eyes No abnormalities - ENMT No abnormalities - Neck No abnormalities - CVS RRR - Chest Clear - Abd Soft - GI Non distended Deferred - No abnormalities - Ext Mild bilateral lower extremity edema. - MSK 4+/5 weakness in both lower extremities. - Neuro No focal deficits - Psych No abnormalities ASSESSMENT: Pt. is a 82 yo Right-handed white male.On 11/10/2017 he was admitted to [facility] with diagnosis COLON ADENOCARCINOMA.His impairment category is Medically Complex Conditions 17 - Other Medically Complex Conditions (17.9).Pre-morbidly, Pt. was independent/mod-I in Social Cognitio n, Self-Care, Locomotion, Sphincter Control, Transfers Control, and Communication; and he had good Sp hincter Control.Currently, he has deficits of Balance, Locomotion, Endurance, Safety Awareness, Trans fers Control, and Self-Care.Pt. is now referred to [facility] for acute in-pat ient rehabilitation in order to maximize patient's functional independence in activities of daily maria luisa ing, strength, ROM, and mobility.- Rehab Goal Patient has realistic goal of being discharged at assistance level 6-Katheryn to reside at Home with Fam nahomy/Relatives. MDM/PLAN: - Physical Therapy Gait dysfunction - to improve, our physical therapists will perform initial evaluation of pt's statu s upon admission and devise an individualized program for Gait Training, and Wheel Chair mobility Inability to transfer - to improve, our physical therapists will perform initial evaluation of pt's status upon admission and devise an individualized program for Bed mobility Need for home safety evaluation - to improve, our physical therapists will perform initial evaluatio n of pt's status upon admission and devise an individualized program for Home Evaluation Need in caregiver upon discharge - to improve, our physical therapists will perform initial evaluati on of pt's status upon admission and devise an individualized program for Caregiver Training New precaution - to improve, our physical therapists will perform initial evaluation of pt's status upon admission and devise an individualized program for Patient precaution education Edema - to improve, our physical therapists will perform initial evaluation of pt's status upon admi ssion and devise an individualized program for Elevation Training, and Lymphedema Therapy Pain - to improve, our physical therapists will perform initial evaluation of pt's status upon admis garry and devise an individualized program for Modalities Poor balance - to improve, our physical therapists will perform initial evaluation of pt's status up on admission and devise an individualized program for Balance Training Poor endurance - to improve, our physical therapists will perform initial evaluation of pt's status upon admission and devise an individualized program for Endurance Training Weakness - to improve, our physical therapists will perform initial evaluation of pt's status upon a dmission and devise an individualized program for Aquatic Therapy, Neuromuscular Reeducation, and Str engthening Achieving independence - to improve, our physical therapists will perform initial evaluation of pt's status upon admission and devise an individualized program for Community Reintegration Activities - Occupational Therapy ADL deficits - to improve, our occupation therapists will perform initial evaluation of pt's status upon admission and devise an individualized program for Bathing, Bed mobility, Community Reintegratio n, Cooking, Dressing, Eating, Fine Motor Skills, Grooming, Homemaking, Kitchen Mobility, Laundry, Pat ient Education, Safety Awareness, Splinting - Positioning, Transfers(Toilet, Tub, Shower), and Wheel Chair Management Need for live in caregiver - to improve, our occupation therapists will perform initial evaluation of pt's status upon admission and devise an individualized program for Caregiver Training Weakness - to improve, our occupation therapists will perform initial evaluation of pt's status upon admission and devise an individualized program for Aquatic Therapy, Balance, Endurance, UE ROM, and UE strengthening - Diet Type Continue Low Fiber - Diet - Liquid Texture Continue Regular - Tube Feed Continue N/A - Fall Precaution Bed and chair alarm - Diet - Solid Texture Continue Regular Continue GI Soft - Shower allowing shower FUNCTIONAL STATUS: UPDATED AT WEEKLY TEAM CONFERENCE - Bladder Same accident frequency: 7-Ind - No accidents in the past 7 days - Bowel Same accident frequency: 7-Ind - No accidents in the past 7 days - Walking Same score based on distance walked: 1(<=50ft) - Wheelchair Same score based on distance traveled: 0(N/A) FUNCTIONAL STATUS: - Self-Care A. Eating Ind B. Grooming sup C. Bathing Mag[place] D. Dressing - Upper [place] E. Dressing - Lower Magaly F. Toileting Magaly - Sphincter Control G: Bladder control Ind H: Bowel control Ind - Transfers Control I. Bed/Chair/Wheelchair modA J. Toilet modA K. Tub/Shower ADNO - Locomotion L. Walk/Wheelchair (B) modA M. Stairs ADNO - Communication N. Comprehension (B) Ind O. Expression (B) Ind - Social Cognition P. Social Interaction Ind Q. Problem Solving Ind R. Memory Ind - Endurance Fair - Balance Fair - Safety Awareness Fair [facility]: Balance, Locomotion, Endurance, Safety Awareness, Transfers Control, and Self-Care SIGNATURE PANEL: (CDT)
[2017-12-01] MEDS: ALBUTEROL 2.5 MG/3 ML NEB SOL NEB SCH ×4 (02:00→20:00)
[2017-12-01] MEDS: IPRATROPIUM BROM 0.5MG/2.5ML NEB SCH ×4 (02:05→20:00)
[2017-12-01 06:39] LABS: Absolute Lymphocytes (CBC) 1.8 K/uL (0.7-4.9); Absolute Monocytes 0.6 K/uL (0.1-1.3); Absolute Neutrophil 5.2 K/uL (1.8-8.0); Basophils % 0.8 % (0-1.3); Eosinophils % 0.8 % (0-4.4); Lymphocytes % 23.2 % (15.3-44.8); MCH 22.7 pg (27.0-35.0); MCV 72.5 fL (80-100); MPV 9.6 fL (7.6-11.3); Monocytes % 7.6 % (3.3-12.3); RBC Red Blood Cell Count 3.73 M/uL (4.33-5.43)
[2017-12-01 06:56] LABS: Albumin 2.8 g/dL (3.4-5.0); Potassium 3.6 mmol/L (3.5-5.1)
[2017-12-01] MEDS: BUDESONIDE 0.25 MG/2 ML NEB NEB SCH (07:37)
[2017-12-01] MEDS: ARFORMOTEROL TARTRATE 15 MCG/2 ML VIAL.NEB NEB SCH ×2 (07:37→20:38)
[2017-12-01] MEDS: LOSARTAN POTASSIUM 50 MG TABLET PO SCH (08:00)
[2017-12-01] MEDS: SUCRALFATE 1 GM TABLET PO SCH ×4 (08:13→20:13)
[2017-12-01] MEDS: LIDOCAINE 5% PATCH TOP SCH (08:13)
[2017-12-01] MEDS: FERROUS SULFATE 325 MG TAB PO SCH ×3 (08:13→20:13)
[2017-12-01] MEDS: HYDROCODONE/APAP 5/325 MG TAB PO PRN ×3 (08:14→20:14)
[2017-12-01] MEDS: GABAPENTIN 300 MG CAP PO SCH (08:15)
[2017-12-01] MEDS: PANTOPRAZOLE 40MG TABLET PO SCH ×2 (08:15→16:40)
[2017-12-01] MEDS: DILTIAZEM HCL 180 MG SR CAP PO SCH (08:16)
[2017-12-01] MEDS: PENTOXIFYLLINE ER 400 MG TAB PO SCH ×3 (08:17→16:40)
[2017-12-01] MEDS: CARBIDOPA/LEVODOPA 25/100 TAB PO SCH ×2 (08:18→20:13)
[2017-12-01] MEDS: FE SULF/FA/VIT B COMP & C TAB PO SCH (08:18)
[2017-12-01] MEDS: FUROSEMIDE 40 MG TABLET PO SCH (08:18)
[2017-12-01] MEDS: CRANBERRY FRUIT EXTRACT 200 MG CAP PO SCH ×2 (08:19→20:13)
[2017-12-01] MEDS: PROMOD 30 ML DOSE PO SCH ×2 (08:19→20:12)
[2017-12-01] MEDS: METOPROLOL TAR 50 MG TAB PO SCH ×2 (08:19→16:40)
[2017-12-01] MEDS: predniSONE 10 MG TAB PO SCH (08:20)
[2017-12-01] MEDS: SUPLENA IMPAIRED RENAL 237 ML CAN PO SCH ×2 (08:21→20:12)
[2017-12-01] MEDS: TOPIRAMATE 25 MG TAB PO SCH ×2 (08:21→20:13)
[2017-12-01] MEDS: POLYETHYL GLY 3350 17 GM/DOSE PO PRN (08:31)
--- NOTE | 2017-12-01 14:02 | FAST ---
SHIFT START DATE/TIME: 12/01/2017 07:00 (CDT) SHIFT END DATE/TIME: 12/01/2017 19:00 (CDT) NAME MYRA LE DATE OF : 1935 DATE OF ADMISSION: 11/22/2017 22:21 (CDT) PHONE: AGE: 82 SSN# [id number] GENDER: Male ENCOUNTER PHYSICIAN: Dr. Edilberto Colbert M.D. ADMISSION DIAGNOSIS: - Medically Complex Conditions 17 - Other Medically Complex Conditions (17.9) COLON ADENOCARCINOMA. Chronic Renal Disease. COPD. PVD. Parkinson's Disease. EATING: EATING - STEP 1: Does the patient require assistance when eating? Yes. EATING - STEP 2: Does the patient require the assistance of a helper? No, patient only requires an assistive device, O R s/he takes more than reasonable time to eat, OR there is a safety concern, OR s/he requires modifie d food consistency EATING - SCORE: 6-NELLIE GROOMING: Activity did not occur on this shift GROOMING - SCORE: 0-UNK BATHING: Activity did not occur on this shift BATHING - SCORE: 0-UNK DRESSING - UPPER BODY: Activity did not occur on this shift ARTICLES SCORE Total number of steps: 0 DRESSING - UPPER BODY - SCORE: 0-UNK DRESSING - LOWER BODY: Activity did not occur on this shift ARTICLES SCORE Total number of steps: 0 DRESSING - LOWER BODY - SCORE: 0-UNK TOILETING: TOILETING - STEP 1: Does the patient require assistance with toileting? Yes. TOILETING - STEP 2: Does the patient require the assistance of a helper? Yes. TOILETING - STEP 3: How much assistance does the patient require from the helper? Hands-on assistance from the helper TOILETING - STEP 4: Of the 3 tasks: 1) Adjusting clothing prior to use, 2) Cleansing of perineal area, 3) Adjusting clot flor after use; How many tasks does the patient perform WITHOUT assistance of the helper? Three tasks with steadying assistance from the helper TOILETING - SCORE: 4-MIN BLADDER MANAGEMENT: BLADDER MANAGEMENT - STEP 1: Does the patient control the bladder completely and intentionally without equipment or devices or med ications, and is always continent? No. BLADDER MANAGEMENT - STEP 2: Does the patient require the assistance of a helper? Yes. BLADDER MANAGEMENT - STEP 3: How much assistance does the patient require from the helper? Only set-up of equipment - such as plac ing it within reach of the patient or emptying a device - to maintain either satisfactory voiding pat tern or managing an external device, such as an absorbent pad, ileal device, or catheter BLADDER MANAGEMENT - SCORE: 5-SUP BLADDER MANAGEMENT - FREQUENCY OF ACCIDENTS: BLADDER MANAGEMENT(FA) - STEP 1: How many accidents has the patient had during the current shift? 0 BOWEL MANAGEMENT: [place] removes incontinent device (depends, pull ups, etc.); cleans the patient after accident / inco ntinent episode; and, applies new device (depends, pull-ups, padding, etc.). BOWEL MANAGEMENT - SCORE: 1-DEP BOWEL MANAGEMENT - FREQUENCY OF ACCIDENTS: BOWEL MANAGEMENT(FA) - STEP 1: How many accidents has the patient had during the current shift? 1 TRANSFERS: BED, CHAIR, WHEELCHAIR: TRANSFERS: BED, CHAIR, WHEELCHAIR - STEP 1: Does the patient require assistance with bed, chair, or wheelchair transfers? Yes. TRANSFERS: BED, CHAIR, WHEELCHAIR - STEP 2: Does the patient require the assistance of a helper? Yes. TRANSFERS: BED, CHAIR, WHEELCHAIR - STEP 3: How much assistance does the patient require from the helper? Steadying/guiding assistance TRANSFERS: BED, CHAIR, WHEELCHAIR - SCORE: 4-MIN TRANSFERS: TOILET: TRANSFERS: TOILET - STEP 1: Does the patient require assistance with toilet transfers? Yes. TRANSFERS: TOILET - STEP 2: Does the patient require the assistance of a helper? Yes. TRANSFERS: TOILET - STEP 3: How much assistance does the patient require from the helper? Only supervision, cuing, coaxing, OR he lp to set out transfer equipment or to lock brakes and/or lift foot rests TRANSFERS: TOILET - SCORE: 5-SUP TRANSFERS: SHOWER: Activity did not occur on this shift TRANSFERS: SHOWER - SCORE: 0-UNK TRANSFERS: TUB: Activity did not occur on this shift TRANSFERS: TUB - SCORE: 0-UNK LOCOMOTION: WALK: Activity did not occur on this shift LOCOMOTION: WALK - SCORE: 0-UNK LOCOMOTION: WHEELCHAIR: LOCOMOTION: WHEELCHAIR - STEP 1: Does the patient need help to go 150 feet in a wheelchair? Yes. LOCOMOTION: WHEELCHAIR - STEP 2: How much assistance does the patient need from the helper? More than incidental help LOCOMOTION: WHEELCHAIR - SCORE: 3-MOD COMPREHENSION: COMPREHENSION: TYPE: Both COMPREHENSION - STEP 1: Does the patient require help to understand complex and abstract ideas (such as current events, finan bradley, discharge planning, medical issues, relationships, etc)? No. COMPREHENSION - STEP 2: Does the patient need extra time, require an assistive device (such as glasses for visual comprehensi on or a hearing aid for auditory comprehension) or does s/he have mild difficulty understanding compl ex and abstract information? Yes. COMPREHENSION - SCORE: 6-NELLIE EXPRESSION EXPRESSION: TYPE: Both EXPRESSION - STEP 1: Does the patient require help expressing complex and abstract ideas (such as current events, finances , discharge planning, medical issues, relationships, etc)? No. EXPRESSION - STEP 2: Does the patient need extra time, require an assistive device (such as augmentive communication syste m or a communication board), OR does s/he have mild difficulty expressing complex and abstract ideas (including mild dysarthria or mild word-find problems)? Yes. EXPRESSION - SCORE: 6-NELLIE SOCIAL INTERACTION: SOCIAL INTERACTION - STEP 1: Does the patient require a helper to interact with others in social and therapeutic situations? No. SOCIAL INTERACTION - STEP 2: Does the patient need extra time in social situations, OR does s/he interact with staff, other patien ts, and family members ONLY in structured environments, OR does s/he require medication for social in teraction? Yes, patient needs extra time SOCIAL INTERACTION - SCORE: 6-NELLIE PROBLEM SOLVING: PROBLEM SOLVING - STEP 1: Does the patient need help to solve complex problems such as managing a checking account or confronti ng interpersonal problems? No. PROBLEM SOLVING - STEP 2: Does the patient require extra time to make decisions or solve problems, OR does s/he have slight dif ficulty reading, initiating, or self-correcting in unfamiliar situations? Yes, patient needs extra ti me. PROBLEM SOLVING - SCORE: 6-NELLIE MEMORY: MEMORY - STEP 1: Does the patient need help to remember frequently encountered people, daily routines, and executing r equests? No. MEMORY - STEP 2: Does the patient have slight difficulty recognizing frequently encountered people, daily routines, or executing requests without the need for repetition or using self-initiated or environmental cues to remember? Yes. MEMORY - SCORE: 6-NELLIE SIGNATURE PANEL: The following modified sections: Eating - Score, Grooming - Score, Bathing - Score, Dressing - Upper Body - Score, Dressing - Lower Body - Score, Toileting - Score, Bladder Management - Score, Bowel Man agement - Score, Transfers: Bed, Chair, Wheelchair - Score, Transfers: Toilet - Score, Transfers: Lisa wer - Score, Transfers: Tub - Score, Locomotion: Walk - Score, Locomotion: Wheelchair - Score, Compre hension - Score, Expression - Score, Social Interaction - Score, Problem Solving - Score, Memory - Sc ore were [electronically] signed by Sonia Ford [email or web address] on TueDec 01 2017 14:02:03 T-0500 (Centra l Daylight Time)
--- NOTE | 2017-12-01 14:43 | FAST ---
ENCOUNTER DATE AND TIME: 12/01/2017 08:00 (CDT) NAME MYRA LE DATE OF : 1935 DATE OF ADMISSION: 11/22/2017 22:21 (CDT) PHONE: AGE: 82 SSN# [id number] GENDER: Male ENCOUNTER PHYSICIAN: Dr. Edilberto Colbert M.D. ADMISSION DIAGNOSIS: - Medically Complex Conditions 17 - Other Medically Complex Conditions (17.9) COLON ADENOCARCINOMA. Chronic Renal Disease. COPD. PVD. Parkinson's Disease. EATING: EATING - STEP 1: Does the patient require assistance when eating? No. EATING - SCORE: 7-IND GROOMING: Patient shaved GROOMING - STEP 1: Does the patient require assistance when grooming? No. GROOMING - SCORE: 7-IND BATHING: Abdomen Buttocks Chest Left arm Left lower leg and foot Left upper leg Perineal area Right arm Right lower leg and foot Right upper leg BATHING - STEP 1: Does the patient require assistance when bathing? Yes. BATHING - STEP 2: Does the patient require the assistance of a helper? Yes. BATHING - STEP 3: How much assistance does the patient require from the helper? Only incidental help such as placement of a wash cloth in his/her hand a few times as s/he bathes OR help to bathe just one or two areas of the body BATHING - SCORE: 4-MIN DRESSING - UPPER BODY: T-shirt/pullover shirt (four steps) ARTICLES SCORE Total number of steps: 4 DRESSING - UPPER BODY - STEP 1: Does the patient require help when dressing above the waist? Yes. DRESSING - UPPER BODY - STEP 2: Does the patient require the assistance of a helper? Yes. DRESSING - UPPER BODY - STEP 3: Does the helper touch the patient while dressing? No. DRESSING - UPPER BODY - SCORE: 5-SUP DRESSING - LOWER BODY: Elastic waist pants (three steps) Sock - Left foot (one step) Sock - Right foot (one step) ARTICLES SCORE Total number of steps: 5 DRESSING - LOWER BODY - STEP 1: Does the patient require help when dressing below the waist? Yes. DRESSING - LOWER BODY - STEP 2: Does the patient require the assistance of a helper? Yes. DRESSING - LOWER BODY - STEP 3: Does the helper touch the patient while dressing? Yes. DRESSING - LOWER BODY - STEP 4: How many of the total steps does the patient complete on his/her own? 5 DRESSING - LOWER BODY - SCORE: 4-MIN TOILETING: TOILETING - STEP 1: Does the patient require assistance with toileting? Yes. TOILETING - STEP 2: Does the patient require the assistance of a helper? Yes. TOILETING - STEP 3: How much assistance does the patient require from the helper? Hands-on assistance from the helper TOILETING - STEP 4: Of the 3 tasks: 1) Adjusting clothing prior to use, 2) Cleansing of perineal area, 3) Adjusting clot flor after use; How many tasks does the patient perform WITHOUT assistance of the helper? Three tasks with steadying assistance from the helper TOILETING - SCORE: 4-MIN BLADDER MANAGEMENT: Activity did not occur on this shift BLADDER MANAGEMENT - SCORE: 7-IND BOWEL MANAGEMENT: Activity did not occur on this shift BOWEL MANAGEMENT - SCORE: 7-IND TRANSFERS: BED, CHAIR, WHEELCHAIR: Activity did not occur on this shift TRANSFERS: BED, CHAIR, WHEELCHAIR - SCORE: 0-UNK TRANSFERS: TOILET: TRANSFERS: TOILET - STEP 1: Does the patient require assistance with toilet transfers? Yes. TRANSFERS: TOILET - STEP 2: Does the patient require the assistance of a helper? Yes. TRANSFERS: TOILET - STEP 3: How much assistance does the patient require from the helper? Patient performs half or more of the tr ansferring tasks TRANSFERS: TOILET - STEP 4: Does the patient need only incidental help such as contact guard or steadying during toilet transfer? Yes. TRANSFERS: TOILET - SCORE: 4-MIN TRANSFERS: SHOWER: TRANSFERS: SHOWER - STEP 1: Does the patient require assistance with shower transfers? Yes. TRANSFERS: SHOWER - STEP 2: Does the patient require the assistance of a helper? Yes. TRANSFERS: SHOWER - STEP 3: How much assistance does the patient require from the helper? Only supervision, cuing, coaxing, or he lp to set out transfer equipment or to lock brakes and/or lift foot rests TRANSFERS: SHOWER - SCORE: 5-SUP TRANSFERS: TUB: Activity did not occur on this shift TRANSFERS: TUB - SCORE: 0-UNK LOCOMOTION: WALK: Activity did not occur on this shift LOCOMOTION: WALK - SCORE: 0-UNK LOCOMOTION: WHEELCHAIR: Activity did not occur on this shift LOCOMOTION: WHEELCHAIR - SCORE: 0-UNK LOCOMOTION: STAIRS: Activity did not occur on this shift LOCOMOTION: STAIRS - SCORE: 0-UNK COMPREHENSION: COMPREHENSION: TYPE: Both COMPREHENSION - STEP 1: Does the patient require help to understand complex and abstract ideas (such as current events, finan bradley, discharge planning, medical issues, relationships, etc)? No. COMPREHENSION - STEP 2: Does the patient need extra time, require an assistive device (such as glasses for visual comprehensi on or a hearing aid for auditory comprehension) or does s/he have mild difficulty understanding compl ex and abstract information? No. COMPREHENSION - SCORE: 7-IND EXPRESSION EXPRESSION: TYPE: Both EXPRESSION - STEP 1: Does the patient require help expressing complex and abstract ideas (such as current events, finances , discharge planning, medical issues, relationships, etc)? No. EXPRESSION - STEP 2: Does the patient need extra time, require an assistive device (such as augmentive communication syste m or a communication board), OR does s/he have mild difficulty expressing complex and abstract ideas (including mild dysarthria or mild word-find problems)? No. EXPRESSION - SCORE: 7-IND SOCIAL INTERACTION: SOCIAL INTERACTION - STEP 1: Does the patient require a helper to interact with others in social and therapeutic situations? No. SOCIAL INTERACTION - STEP 2: Does the patient need extra time in social situations, OR does s/he interact with staff, other patien ts, and family members ONLY in structured environments, OR does s/he require medication for social in teraction? No. SOCIAL INTERACTION - SCORE: 7-IND PROBLEM SOLVING: PROBLEM SOLVING - STEP 1: Does the patient need help to solve complex problems such as managing a checking account or confronti ng interpersonal problems? No. PROBLEM SOLVING - STEP 2: Does the patient require extra time to make decisions or solve problems, OR does s/he have slight dif ficulty reading, initiating, or self-correcting in unfamiliar situations? No. PROBLEM SOLVING - SCORE: 7-IND MEMORY: MEMORY - STEP 1: Does the patient need help to remember frequently encountered people, daily routines, and executing r equests? No. MEMORY - STEP 2: Does the patient have slight difficulty recognizing frequently encountered people, daily routines, or executing requests without the need for repetition or using self-initiated or environmental cues to remember? No. MEMORY - SCORE: 7-IND SIGNATURE PANEL: The following modified sections: Transfers: Shower - Score, Comprehension - Score, Problem Solving - Score, Memory - Score, Transfers: Bed, Chair, Wheelchair - Score, Transfers: Toilet - Score, Transfer s: Tub - Score, Expression - Score, Social Interaction - Score were [electronically] signed by Mike Velasco OT on TueDec 01 2017 14:43:02 T-0500 (Central Daylight Time)
[2017-12-01] MEDS: RIVAROXABAN 15 MG TABLET PO SCH (16:40)
[2017-12-01] MEDS: ONDANSETRON 4 MG (ODT) TAB PO PRN (17:14)
--- NOTE | 2017-12-01 18:38 | R.PN ---
ENCOUNTER DATE AND TIME: 12/01/2017 18:36 (CDT) NAME MYRA LE DATE OF : 1935 DATE OF ADMISSION: 11/22/2017 22:21 (CDT) COLON ADENOCARCINOMAChronic Renal DiseaseCOPDPVDParkinson's DiseaseSUBJECTIVE: Pt denied any Shortness of Breath. Pt denied any depression. Chest x-ray done 11-28-17 shows improvement versus 10-13-17. Mild tachycardia with normal blood pressure s. Afebrile with normal WBC 2 days ago. Ambulated total of 375' with standby assistance. Lactate and procalcitonin are normal. ADLs done with standby assistance to independence. VITAL SIGNS Temperature: 98.1 F SBP/DBP: 128/63 Pulse: 86 Resp: 14 MEDICATION ALLERGIES: No Known Drug Allergies (NKDA) ENVIRONMENTAL ALLERGIES: None Known - Substance Allergies None Known - Other Allergies None Known NURSING: - Shower allowing shower PRECAUTIONS: - Fall Precaution Bed and chair alarm ACTIVITIES OOB only with supervision THERAPIES: - Occupational Therapy Evaluate and Treat. - Speech Therapy Memory Strategies. Speech Intelligibility Training. - Physical Therapy Evaluate and Treat. PHYSICAL EXAM - Gen Alert and awake Lying in bed No apparent distress Oriented to: person, time, and place - Skin No skin breakdown. No abnormalities - Eyes No abnormalities - ENMT No abnormalities - Neck No abnormalities - CVS RRR - Chest Clear - Abd Soft - GI Non distended Deferred - No abnormalities - Ext Mild bilateral lower extremity edema. - MSK 4+/5 weakness in both lower extremities. - Neuro No focal deficits - Psych No abnormalities ASSESSMENT: Pt. is a 82 yo Right-handed white male.On 11/10/2017 he was admitted to [facility] with diagnosis COLON ADENOCARCINOMA.His impairment category is Medically Complex Conditions 17 - Other Medically Complex Conditions (17.9).Pre-morbidly, Pt. was independent/mod-I in Social Cognitio n, Self-Care, Locomotion, Sphincter Control, Transfers Control, and Communication; and he had good Sp hincter Control.Currently, he has deficits of Balance, Locomotion, Endurance, Safety Awareness, Trans fers Control, and Self-Care.Pt. is now referred to [facility] for acute in-pat ient rehabilitation in order to maximize patient's functional independence in activities of daily maria luisa ing, strength, ROM, and mobility.- Rehab Goal Patient has realistic goal of being discharged at assistance level 6-Katheryn to reside at Home with Fam nahomy/Relatives. MDM/PLAN: - Physical Therapy Gait dysfunction - to improve, our physical therapists will perform initial evaluation of pt's statu s upon admission and devise an individualized program for Gait Training, and Wheel Chair mobility Inability to transfer - to improve, our physical therapists will perform initial evaluation of pt's status upon admission and devise an individualized program for Bed mobility Need for home safety evaluation - to improve, our physical therapists will perform initial evaluatio n of pt's status upon admission and devise an individualized program for Home Evaluation Need in caregiver upon discharge - to improve, our physical therapists will perform initial evaluati on of pt's status upon admission and devise an individualized program for Caregiver Training New precaution - to improve, our physical therapists will perform initial evaluation of pt's status upon admission and devise an individualized program for Patient precaution education Edema - to improve, our physical therapists will perform initial evaluation of pt's status upon admi ssion and devise an individualized program for Elevation Training, and Lymphedema Therapy Pain - to improve, our physical therapists will perform initial evaluation of pt's status upon admis garry and devise an individualized program for Modalities Poor balance - to improve, our physical therapists will perform initial evaluation of pt's status up on admission and devise an individualized program for Balance Training Poor endurance - to improve, our physical therapists will perform initial evaluation of pt's status upon admission and devise an individualized program for Endurance Training Weakness - to improve, our physical therapists will perform initial evaluation of pt's status upon a dmission and devise an individualized program for Aquatic Therapy, Neuromuscular Reeducation, and Str engthening Achieving independence - to improve, our physical therapists will perform initial evaluation of pt's status upon admission and devise an individualized program for Community Reintegration Activities - Occupational Therapy ADL deficits - to improve, our occupation therapists will perform initial evaluation of pt's status upon admission and devise an individualized program for Bathing, Bed mobility, Community Reintegratio n, Cooking, Dressing, Eating, Fine Motor Skills, Grooming, Homemaking, Kitchen Mobility, Laundry, Pat ient Education, Safety Awareness, Splinting - Positioning, Transfers(Toilet, Tub, Shower), and Wheel Chair Management Need for animal care taker - to improve, our occupation therapists will perform initial evaluation of pt's status upon admission and devise an individualized program for Caregiver Training Weakness - to improve, our occupation therapists will perform initial evaluation of pt's status upon admission and devise an individualized program for Aquatic Therapy, Balance, Endurance, UE ROM, and UE strengthening - Diet Type Continue Low Fiber - Diet - Liquid Texture Continue Regular - Tube Feed Continue N/A - Fall Precaution Bed and chair alarm - Diet - Solid Texture Continue Regular Continue GI Soft - Shower allowing shower FUNCTIONAL STATUS: UPDATED AT WEEKLY TEAM CONFERENCE - Bladder Same accident frequency: 7-Ind - No accidents in the past 7 days - Bowel Same accident frequency: 7-Ind - No accidents in the past 7 days - Walking Same score based on distance walked: 1(<=50ft) - Wheelchair Same score based on distance traveled: 0(N/A) FUNCTIONAL STATUS: - Self-Care A. Eating Ind B. Grooming sup C. Bathing Magaly D. Dressing - Upper Magaly E. Dressing - Lower Magaly F. Toileting Magaly - Sphincter Control G: Bladder control Ind H: Bowel control Ind - Transfers Control I. Bed/Chair/Wheelchair modA J. Toilet modA K. Tub/Shower ADNO - Locomotion L. Walk/Wheelchair (B) modA M. Stairs ADNO - Communication N. Comprehension (B) Ind O. Expression (B) Ind - Social Cognition P. Social Interaction Ind Q. Problem Solving Ind R. Memory Ind - Endurance Fair - Balance Fair - Safety Awareness Fair [facility]: Balance, Locomotion, Endurance, Safety Awareness, Transfers Control, and Self-Care SIGNATURE PANEL: (CDT)
[2017-12-01] MEDS: GABAPENTIN 400 MG CAP PO SCH (20:13)
[2017-12-02] MEDS: IPRATROPIUM BROM 0.5MG/2.5ML NEB SCH ×4 (01:46→19:46)
[2017-12-02] MEDS: ALBUTEROL 2.5 MG/3 ML NEB SOL NEB SCH ×4 (01:46→19:46)
--- NOTE | 2017-12-02 02:09 | FAST ---
SHIFT START DATE/TIME: 12/01/2017 19:00 (CDT) SHIFT END DATE/TIME: 12/02/2017 07:00 (CDT) NAME MYRA LE DATE OF : 1935 DATE OF ADMISSION: 11/22/2017 22:21 (CDT) PHONE: AGE: 82 SSN# [id number] GENDER: Male ENCOUNTER PHYSICIAN: Dr. Edilberto Colbert M.D. ADMISSION DIAGNOSIS: - Medically Complex Conditions 17 - Other Medically Complex Conditions (17.9) COLON ADENOCARCINOMA. Chronic Renal Disease. COPD. PVD. Parkinson's Disease. EATING: Activity did not occur on this shift EATING - SCORE: 0-UNK GROOMING: Activity did not occur on this shift GROOMING - SCORE: 0-UNK BATHING: Activity did not occur on this shift BATHING - SCORE: 0-UNK DRESSING - UPPER BODY: Patient is not dressing in public clothing ARTICLES SCORE Total number of steps: 0 DRESSING - UPPER BODY - SCORE: 0-UNK DRESSING - LOWER BODY: Patient is not dressing in public clothing ARTICLES SCORE Total number of steps: 0 DRESSING - LOWER BODY - SCORE: 0-UNK TOILETING: TOILETING - STEP 1: Does the patient require assistance with toileting? Yes. TOILETING - STEP 2: Does the patient require the assistance of a helper? Yes. TOILETING - STEP 3: How much assistance does the patient require from the helper? Hands-on assistance from the helper TOILETING - STEP 4: Of the 3 tasks: 1) Adjusting clothing prior to use, 2) Cleansing of perineal area, 3) Adjusting clot flor after use; How many tasks does the patient perform WITHOUT assistance of the helper? No tasks; h glenroy performs all three tasks TOILETING - SCORE: 1-DEP BLADDER MANAGEMENT: BLADDER MANAGEMENT - STEP 1: Does the patient control the bladder completely and intentionally without equipment or devices or med ications, and is always continent? No. BLADDER MANAGEMENT - STEP 2: Does the patient require the assistance of a helper? Yes. BLADDER MANAGEMENT - STEP 3: How much assistance does the patient require from the helper? Patient requires contact assistance fro m the helper BLADDER MANAGEMENT - STEP 4: How much contact assistance does the patient require from the helper? Patient requires minimal assist ance to maintain an external device - by positioning, and the patient performs 75% or more of bladder management tasks, while the helper provides less than 25% of the assistance to position patient on / off bedpan BLADDER MANAGEMENT - SCORE: 4-MIN BOWEL MANAGEMENT: Gallion removes incontinent device (depends, pull ups, etc.); cleans the patient after accident / inco ntinent episode; and, applies new device (depends, pull-ups, padding, etc.). BOWEL MANAGEMENT - SCORE: 1-DEP BOWEL MANAGEMENT - FREQUENCY OF ACCIDENTS: BOWEL MANAGEMENT(FA) - STEP 1: How many accidents has the patient had during the current shift? 1 TRANSFERS: BED, CHAIR, WHEELCHAIR: TRANSFERS: BED, CHAIR, WHEELCHAIR - STEP 1: Does the patient require assistance with bed, chair, or wheelchair transfers? Yes. TRANSFERS: BED, CHAIR, WHEELCHAIR - STEP 2: Does the patient require the assistance of a helper? Yes. TRANSFERS: BED, CHAIR, WHEELCHAIR - STEP 3: How much assistance does the patient require from the helper? Lifting of the legs TRANSFERS: BED, CHAIR, WHEELCHAIR - STEP 4: How many legs does the patient require the helper to lift? both legs TRANSFERS: BED, CHAIR, WHEELCHAIR - SCORE: 3-MOD TRANSFERS: TOILET: TRANSFERS: TOILET - STEP 1: Does the patient require assistance with toilet transfers? Yes. TRANSFERS: TOILET - STEP 2: Does the patient require the assistance of a helper? Yes. TRANSFERS: TOILET - STEP 3: How much assistance does the patient require from the helper? Patient performs half or more of the tr ansferring tasks TRANSFERS: TOILET - STEP 4: Does the patient need only incidental help such as contact guard or steadying during toilet transfer? No. Patient needs more than incidental help TRANSFERS: TOILET - SCORE: 3-MOD TRANSFERS: SHOWER: Activity did not occur on this shift TRANSFERS: SHOWER - SCORE: 0-UNK TRANSFERS: TUB: Activity did not occur on this shift TRANSFERS: TUB - SCORE: 0-UNK LOCOMOTION: WALK: Activity did not occur on this shift LOCOMOTION: WALK - SCORE: 0-UNK LOCOMOTION: WHEELCHAIR: Activity did not occur on this shift LOCOMOTION: WHEELCHAIR - SCORE: 0-UNK COMPREHENSION: COMPREHENSION: TYPE: Both COMPREHENSION - STEP 1: Does the patient require help to understand complex and abstract ideas (such as current events, finan bradley, discharge planning, medical issues, relationships, etc)? Yes. COMPREHENSION - STEP 2: Does the patient require help to understand questions or statements about basic needs or ideas (such as hunger, thirst, sleep, safety, daily schedule, room location, or discomfort) half or more of the t araceli? No. COMPREHENSION - STEP 3: How often does the patient need help to understand directions and conversation about basic needs? 10% - 24% of the time COMPREHENSION - SCORE: 4-MIN EXPRESSION EXPRESSION: TYPE: Both EXPRESSION - STEP 1: Does the patient require help expressing complex and abstract ideas (such as current events, finances , discharge planning, medical issues, relationships, etc)? Yes. EXPRESSION - STEP 2: Does the patient require help to express basic necessities or ideas (such as hunger, thirst, sleep, s afety, daily schedule, room location, or discomfort) half or more of the time? No. EXPRESSION - STEP 3: How often does the patient need help to express directions and conversation about basic needs? 10-24% of the time EXPRESSION - SCORE: 4-MIN SOCIAL INTERACTION: SOCIAL INTERACTION - STEP 1: Does the patient require a helper to interact with others in social and therapeutic situations? No. SOCIAL INTERACTION - STEP 2: Does the patient need extra time in social situations, OR does s/he interact with staff, other patien ts, and family members ONLY in structured environments, OR does s/he require medication for social in teraction? Yes, patient needs extra time SOCIAL INTERACTION - SCORE: 6-NELLIE PROBLEM SOLVING: PROBLEM SOLVING - STEP 1: Does the patient need help to solve complex problems such as managing a checking account or confronti ng interpersonal problems? Yes. PROBLEM SOLVING - STEP 2: Does the patient solve basic routine problems half or more of the time? Yes. PROBLEM SOLVING - STEP 3: How often does the patient need help to solve basic routine problems? 25%-49% of the time PROBLEM SOLVING - SCORE: 3-MOD MEMORY: MEMORY - STEP 1: Does the patient need help to remember frequently encountered people, daily routines, and executing r equests? Yes. MEMORY - STEP 2: How often does the patient need help to remember frequently encountered people, daily routines, and e xecuting requests? 25% - 49% of the time MEMORY - SCORE: 3-MOD SIGNATURE PANEL: The following modified sections: Eating - Score, Grooming - Score, Dressing - Upper Body - Score, Jewel ssing - Lower Body - Score, Toileting - Score, Bladder Management - Score, Bowel Management - Score, Transfers: Bed, Chair, Wheelchair - Score, Transfers: Toilet - Score, Transfers: Shower - Score, Valdez sfers: Tub - Score, Locomotion: Walk - Score, Locomotion: Wheelchair - Score, Comprehension - Score, Expression - Score, Social Interaction - Score, Problem Solving - Score, Memory - Score were [electro nically] signed by Margarita Raza CNA on TueDec 02 2017 02:08:10 T-0500 (Central Daylight Time)
[2017-12-02 06:08] LABS: Hematocrit 28.8 % (39.6-49.0)
[2017-12-02] MEDS: HYDROCODONE/APAP 5/325 MG TAB PO PRN (07:24)
[2017-12-02] MEDS: ARFORMOTEROL TARTRATE 15 MCG/2 ML VIAL.NEB NEB SCH ×2 (07:35→19:46)
[2017-12-02] MEDS: BUDESONIDE 0.25 MG/2 ML NEB NEB SCH (07:35)
[2017-12-02] MEDS: GABAPENTIN 300 MG CAP PO SCH (08:34)
[2017-12-02] MEDS: CRANBERRY FRUIT EXTRACT 200 MG CAP PO SCH ×2 (08:34→22:04)
[2017-12-02] MEDS: CARBIDOPA/LEVODOPA 25/100 TAB PO SCH ×2 (08:35→22:04)
[2017-12-02] MEDS: METOPROLOL TAR 50 MG TAB PO SCH ×2 (08:35→17:42)
[2017-12-02] MEDS: PANTOPRAZOLE 40MG TABLET PO SCH ×2 (08:36→17:03)
[2017-12-02] MEDS: PENTOXIFYLLINE ER 400 MG TAB PO SCH ×3 (08:36→17:42)
[2017-12-02] MEDS: TOPIRAMATE 25 MG TAB PO SCH ×2 (08:36→22:04)
[2017-12-02] MEDS: FERROUS SULFATE 325 MG TAB PO SCH ×3 (08:37→22:04)
[2017-12-02] MEDS: FE SULF/FA/VIT B COMP & C TAB PO SCH (08:37)
[2017-12-02] MEDS: predniSONE 10 MG TAB PO SCH (08:37)
[2017-12-02] MEDS: DILTIAZEM HCL 180 MG SR CAP PO SCH (08:38)
[2017-12-02] MEDS: SUPLENA IMPAIRED RENAL 237 ML CAN PO SCH ×2 (09:19→22:03)
[2017-12-02] MEDS: PROMOD 30 ML DOSE PO SCH ×2 (09:19→22:03)
[2017-12-02] MEDS: LIDOCAINE 5% PATCH TOP SCH (09:19)
--- NOTE | 2017-12-02 09:49 | P.RH.PN ---
Estimated Length of Stay: 15 Expected Discharge Date: 12/06/17 Discharge Disposition Plan: Home Family Support: Yes Intermediate Goal: Mobility, Transfers, Self Care Vital Signs: Last Vital Signs Temp 98.2 F 12/02/17 06:20 Pulse 112 H 12/02/17 08:38 Resp 18 12/02/17 06:20 BP 127/87 12/02/17 08:38 Pulse Ox 90 L 12/02/17 06:20 Laboratory: Laboratory Last Values WBC 7.7 K/uL (4.3-10.9) 12/01/17 05:40 RBC 3.73 M/uL (4.33-5.43) L 12/01/17 05:40 Hgb 8.9 g/dL (13.6-17.9) L 12/02/17 05:43 Hct 28.8 % (39.6-49.0) L 12/02/17 05:43 MCV 72.5 fL (80-100) L 12/01/17 05:40 MCH 22.7 pg (27.0-35.0) L 12/01/17 05:40 MCHC 31.3 g/dL (32.0-36.0) L 12/01/17 05:40 RDW 27.7 % (12.1-15.2) H 12/01/17 05:40 Plt Count 286 K/uL (152-406) 12/01/17 05:40 MPV 9.6 fL (7.6-11.3) 12/01/17 05:40 Neutrophils % 67.6 % (41.7-73.7) 12/01/17 05:40 Lymphocytes % 23.2 % (15.3-44.8) 12/01/17 05:40 Monocytes % 7.6 % (3.3-12.3) 12/01/17 05:40 Eosinophils % 0.8 % (0-4.4) 12/01/17 05:40 Basophils % 0.8 % (0-1.3) 12/01/17 05:40 Absolute Neutrophils 5.2 K/uL (1.8-8.0) 12/01/17 05:40 Absolute Lymphocytes 1.8 K/uL (0.7-4.9) 12/01/17 05:40 Absolute Monocytes 0.6 K/uL (0.1-1.3) 12/01/17 05:40 Absolute Eosinophils 0.1 K/uL (0-0.5) 12/01/17 05:40 Absolute Basophils 0.1 K/uL (0-0.5) 12/01/17 05:40 Hypochromasia 1+ 11/23/17 06:04 Poikilocytosis 1+ 11/23/17 06:04 Anisocytosis 1+ 11/23/17 06:04 Microcytosis 1+ 11/23/17 06:04 Ovalocytes 1+ 11/23/17 06:04 Morphology Comment Noted (NOT SEEN) 11/23/17 06:04 pH Cancelled 11/23/17 17:32 pCO2 Cancelled 11/23/17 17:32 pO2 Cancelled 11/23/17 17:32 HCO3 Cancelled 11/23/17 17:32 Base Excess Cancelled 11/23/17 17:32 Oxyhemoglobin Cancelled 11/23/17 17:32 ABG O2 Sat (Measured) Cancelled 11/23/17 17:32 ABG Carboxyhemoglobin Cancelled 11/23/17 17:32 ABG Methemoglobin Cancelled 11/23/17 17:32 Other Total Hgb Cancelled 11/23/17 17:32 Inspired O2 Cancelled 11/23/17 17:32 Sodium 143 mmol/L (136-145) 12/01/17 05:40 Potassium 3.6 mmol/L (3.5-5.1) 12/01/17 05:40 Chloride 106 mmol/L (98-107) 12/01/17 05:40 Carbon Dioxide 32 mmol/L (21-32) 12/01/17 05:40 BUN 49 mg/dL (7-18) H 12/01/17 05:40 Creatinine 1.40 mg/dL (0.55-1.3) H 12/01/17 05:40 Estimated GFR 49 mL/min (=/>90) L 12/01/17 05:40 Glucose 94 mg/dL (74-106) 12/01/17 05:40 Lactic Acid 0.7 mmol/L (0.4-2.0) 11/29/17 05:38 Calcium 8.7 mg/dL (8.5-10.1) 12/01/17 05:40 Magnesium 1.9 mg/dL (1.8-2.4) 11/23/17 06:04 Albumin 2.8 g/dL (3.4-5.0) L 12/01/17 05:40 Prealbumin 27.0 mg/dL (20-40) 12/01/17 05:40 Procalcitonin 0.15 ng/mL (<0.50) 11/29/17 05:38 Urine Color Yellow 11/24/17 00:11 Urine Appearance Clear 11/24/17 00:11 Urine pH 5.0 (5.0-7.0) 11/24/17 00:11 Ur Specific [place] 1.020 (1.005-1.030) 11/24/17 00:11 Urine Ketones Negative (NEG) 11/24/17 00:11 Urine Blood Negative (NEG) 11/24/17 00:11 Urine Nitrite Negative (NEG) 11/24/17 00:11 Urine Bilirubin Negative (NEG) 11/24/17 00:11 Urine Urobilinogen 0.2 mg/dL (0.2-1.0) 11/24/17 00:11 Ur Leukocyte Esterase Negative (NEG) 11/24/17 00:11 Urine RBC None seen /HPF (NONE SEEN) 11/24/17 00:11 Urine WBC <5 /HPF (<5) 11/24/17 00:11 Ur Squamous Epith Cells <5 /HPF (NONE SEEN) 11/24/17 00:11 Urine Bacteria <20 /HPF (NONE SEEN) 11/24/17 00:11 Hyaline Casts 0-5 /LPF (NONE SEEN) 11/24/17 00:11 Urine Culture Reflexed Not needed 11/24/17 00:11 Urine Glucose Negative (NEG) 11/24/17 00:11 Urine Total Protein Negative (NEG) 11/24/17 00:11 Weight: 151 lb 6 oz Wound Present: No Closed Surgical Incision Present: Yes Negative Pressure Wound Therapy Present: No Physician Update: He is making fair overall progress with physical and occupational therapy. However, he is moderately debilitated and would benefit from additional days of therapy in rehab. He plans to go to his daughter after discharge. He needs to be encouraged to get out of bed and go to meals. Pain Issues: Lidoderm patch Daily. Cawood 5/325mg Q6H PRN Functional Improvement: Patient has met all short-term goals at this time and is continuing to work to progress toward long-term goals. Patient continues to put minimal importance toward safety awareness. Functional Improvement Occupational Therapy: PATIENT MET ALL STG, HOWEVER, CONTINUES TO REQUIRE CGA AND SBA FOR SAFETY. Summary: Patient's care plan and penitentiary goals have been reviewed and revised as necessary. Please see the Rehabilitation Signature page for all necessary signatures.
[2017-12-02] MEDS: SUCRALFATE 1 GM TABLET PO SCH ×4 (10:10→22:04)
[2017-12-02] MEDS: FUROSEMIDE 40 MG TABLET PO SCH (12:00)
[2017-12-02] MEDS: LOSARTAN POTASSIUM 50 MG TABLET PO SCH (12:00)
--- NOTE | 2017-12-02 14:48 | FAST ---
SHIFT START DATE/TIME: 12/02/2017 07:00 (CDT) SHIFT END DATE/TIME: 12/02/2017 19:00 (CDT) NAME MYRA LE DATE OF : 1935 DATE OF ADMISSION: 11/22/2017 22:21 (CDT) PHONE: AGE: 82 SSN# [id number] GENDER: Male ENCOUNTER PHYSICIAN: Dr. Edilberto Colbert M.D. ADMISSION DIAGNOSIS: - Medically Complex Conditions 17 - Other Medically Complex Conditions (17.9) COLON ADENOCARCINOMA. Chronic Renal Disease. COPD. PVD. Parkinson's Disease. EATING: EATING - STEP 1: Does the patient require assistance when eating? Yes. EATING - STEP 2: Does the patient require the assistance of a helper? No, patient only requires an assistive device, O R s/he takes more than reasonable time to eat, OR there is a safety concern, OR s/he requires modifie d food consistency EATING - SCORE: 6-NELLIE GROOMING: Wash, rinse, and dry hands GROOMING - STEP 1: Does the patient require assistance when grooming? No. GROOMING - SCORE: 7-IND BATHING: Activity did not occur on this shift BATHING - SCORE: 0-UNK DRESSING - UPPER BODY: T-shirt/pullover shirt (four steps) ARTICLES SCORE Total number of steps: 4 DRESSING - UPPER BODY - STEP 1: Does the patient require help when dressing above the waist? Yes. DRESSING - UPPER BODY - STEP 2: Does the patient require the assistance of a helper? Yes. DRESSING - UPPER BODY - STEP 3: Does the helper touch the patient while dressing? Yes. DRESSING - UPPER BODY - STEP 4: How many of the total steps does the patient complete on his/her own? 2 DRESSING - UPPER BODY - SCORE: 3-MOD DRESSING - LOWER BODY: Elastic waist pants (three steps) Underwear (three steps) ARTICLES SCORE Total number of steps: 6 DRESSING - LOWER BODY - STEP 1: Does the patient require help when dressing below the waist? Yes. DRESSING - LOWER BODY - STEP 2: Does the patient require the assistance of a helper? Yes. DRESSING - LOWER BODY - STEP 3: Does the helper touch the patient while dressing? Yes. DRESSING - LOWER BODY - STEP 4: How many of the total steps does the patient complete on his/her own? 3 DRESSING - LOWER BODY - SCORE: 3-MOD TOILETING: TOILETING - STEP 1: Does the patient require assistance with toileting? Yes. TOILETING - STEP 2: Does the patient require the assistance of a helper? Yes. TOILETING - STEP 3: How much assistance does the patient require from the helper? Only supervision TOILETING - SCORE: 5-SUP BLADDER MANAGEMENT: BLADDER MANAGEMENT - STEP 1: Does the patient control the bladder completely and intentionally without equipment or devices or med ications, and is always continent? No. BLADDER MANAGEMENT - STEP 2: Does the patient require the assistance of a helper? No, patient requires and independently uses an a ssistive device, such as a urinal, bedpan, bedside commode, catheter, absorbent pad, or collecting de vice BLADDER MANAGEMENT - SCORE: 6-NELLIE BLADDER MANAGEMENT - FREQUENCY OF ACCIDENTS: BLADDER MANAGEMENT(FA) - STEP 1: How many accidents has the patient had during the current shift? 0 BOWEL MANAGEMENT: BOWEL MANAGEMENT - STEP 1: Does the patient control bowels completely and intentionally without equipment devices or medications AND is always continent? No. BOWEL MANAGEMENT - STEP 2: Does the patient require the assistance of a helper? Yes. BOWEL MANAGEMENT - STEP 3: How much assistance does the patient require from the helper? Patient requires supervision, stand by, cueing, coaxing, or setup of equipment - placing within reach of patient and emptying device / bedpa nd or BSC bucket - to maintain either satisfactory bowel pattern or managing an external device such as an absorbent pad, colostomy bag / ileostomy bag BOWEL MANAGEMENT - SCORE: 5-SUP BOWEL MANAGEMENT - FREQUENCY OF ACCIDENTS: BOWEL MANAGEMENT(FA) - STEP 1: How many accidents has the patient had during the current shift? 1 TRANSFERS: BED, CHAIR, WHEELCHAIR: TRANSFERS: BED, CHAIR, WHEELCHAIR - STEP 1: Does the patient require assistance with bed, chair, or wheelchair transfers? Yes. TRANSFERS: BED, CHAIR, WHEELCHAIR - STEP 2: Does the patient require the assistance of a helper? Yes. TRANSFERS: BED, CHAIR, WHEELCHAIR - STEP 3: How much assistance does the patient require from the helper? Steadying/guiding assistance TRANSFERS: BED, CHAIR, WHEELCHAIR - SCORE: 4-MIN TRANSFERS: TOILET: TRANSFERS: TOILET - STEP 1: Does the patient require assistance with toilet transfers? Yes. TRANSFERS: TOILET - STEP 2: Does the patient require the assistance of a helper? Yes. TRANSFERS: TOILET - STEP 3: How much assistance does the patient require from the helper? Patient performs half or more of the tr ansferring tasks TRANSFERS: TOILET - STEP 4: Does the patient need only incidental help such as contact guard or steadying during toilet transfer? Yes. TRANSFERS: TOILET - SCORE: 4-MIN TRANSFERS: SHOWER: Activity did not occur on this shift TRANSFERS: SHOWER - SCORE: 0-UNK TRANSFERS: TUB: Activity did not occur on this shift TRANSFERS: TUB - SCORE: 0-UNK LOCOMOTION: WALK: Activity did not occur on this shift LOCOMOTION: WALK - SCORE: 0-UNK LOCOMOTION: WHEELCHAIR: Activity did not occur on this shift LOCOMOTION: WHEELCHAIR - SCORE: 0-UNK COMPREHENSION: COMPREHENSION - SCORE: 0-UNK EXPRESSION EXPRESSION - SCORE: 0-UNK SOCIAL INTERACTION: SOCIAL INTERACTION - SCORE: 0-UNK PROBLEM SOLVING: PROBLEM SOLVING - SCORE: 0-UNK MEMORY: MEMORY - SCORE: 0-UNK SIGNATURE PANEL: The following modified sections: Eating - Score, Grooming - Score, Bathing - Score, Dressing - Upper Body - Score, Dressing - Lower Body - Score, Toileting - Score, Bladder Management - Score, Bowel Man agement - Score, Transfers: Bed, Chair, Wheelchair - Score, Transfers: Toilet - Score, Transfers: Lisa wer - Score, Transfers: Tub - Score, Locomotion: Walk - Score, Locomotion: Wheelchair - Score, Compre hension - Score, Expression - Score, Social Interaction - Score, Problem Solving - Score, Memory - Sc ore were [electronically] signed by Yamile Hayes CNA on TueDec 02 2017 14:48:03 T-0500 (Cent[place] Daylight Time)
[2017-12-02] MEDS: RIVAROXABAN 15 MG TABLET PO SCH (17:42)
[2017-12-02] MEDS: guaiFENesin 100 MG/5 ML UCUP PO PRN (22:03)
[2017-12-02] MEDS: GABAPENTIN 400 MG CAP PO SCH (22:03)
[2017-12-02] MEDS: DIPHENHYDRAMINE 25 MG TAB/CAP PO SCH (22:04)
[2017-12-03] MEDS: IPRATROPIUM BROM 0.5MG/2.5ML NEB SCH ×4 (01:19→19:56)
[2017-12-03] MEDS: ALBUTEROL 2.5 MG/3 ML NEB SOL NEB SCH ×4 (01:19→19:55)
--- NOTE | 2017-12-03 02:32 | FAST ---
SHIFT START DATE/TIME: 12/02/2017 19:00 (CDT) SHIFT END DATE/TIME: 12/03/2017 07:00 (CDT) NAME MYRA LE DATE OF : 1935 DATE OF ADMISSION: 11/22/2017 22:21 (CDT) PHONE: AGE: 82 SSN# [id number] GENDER: Male ENCOUNTER PHYSICIAN: Dr. Edilberto Colbert M.D. ADMISSION DIAGNOSIS: - Medically Complex Conditions 17 - Other Medically Complex Conditions (17.9) COLON ADENOCARCINOMA. Chronic Renal Disease. COPD. PVD. Parkinson's Disease. EATING: Activity did not occur on this shift EATING - SCORE: 0-UNK GROOMING: Activity did not occur on this shift GROOMING - SCORE: 0-UNK BATHING: Activity did not occur on this shift BATHING - SCORE: 0-UNK DRESSING - UPPER BODY: Patient is not dressing in public clothing ARTICLES SCORE Total number of steps: 0 DRESSING - UPPER BODY - SCORE: 0-UNK DRESSING - LOWER BODY: Patient is not dressing in public clothing ARTICLES SCORE Total number of steps: 0 DRESSING - LOWER BODY - SCORE: 0-UNK TOILETING: TOILETING - STEP 1: Does the patient require assistance with toileting? Yes. TOILETING - STEP 2: Does the patient require the assistance of a helper? Yes. TOILETING - STEP 3: How much assistance does the patient require from the helper? Hands-on assistance from the helper TOILETING - STEP 4: Of the 3 tasks: 1) Adjusting clothing prior to use, 2) Cleansing of perineal area, 3) Adjusting clot flor after use; How many tasks does the patient perform WITHOUT assistance of the helper? No tasks; h elper performs all three tasks TOILETING - SCORE: 1-DEP BLADDER MANAGEMENT: [place] removes incontinent device (Depends, pull ups, etc.); cleans the patient after accident / inco ntinent episode; and, applies new incontinent device. BLADDER MANAGEMENT - SCORE: 1-DEP BLADDER MANAGEMENT - FREQUENCY OF ACCIDENTS: BLADDER MANAGEMENT(FA) - STEP 1: How many accidents has the patient had during the current shift? 1 BOWEL MANAGEMENT: Activity did not occur on this shift BOWEL MANAGEMENT - SCORE: 7-IND TRANSFERS: BED, CHAIR, WHEELCHAIR: TRANSFERS: BED, CHAIR, WHEELCHAIR - STEP 1: Does the patient require assistance with bed, chair, or wheelchair transfers? Yes. TRANSFERS: BED, CHAIR, WHEELCHAIR - STEP 2: Does the patient require the assistance of a helper? Yes. TRANSFERS: BED, CHAIR, WHEELCHAIR - STEP 3: How much assistance does the patient require from the helper? Lifting of the legs TRANSFERS: BED, CHAIR, WHEELCHAIR - STEP 4: How many legs does the patient require the helper to lift? both legs TRANSFERS: BED, CHAIR, WHEELCHAIR - SCORE: 3-MOD TRANSFERS: TOILET: TRANSFERS: TOILET - STEP 1: Does the patient require assistance with toilet transfers? Yes. TRANSFERS: TOILET - STEP 2: Does the patient require the assistance of a helper? Yes. TRANSFERS: TOILET - STEP 3: How much assistance does the patient require from the helper? Patient performs half or more of the tr ansferring tasks TRANSFERS: TOILET - STEP 4: Does the patient need only incidental help such as contact guard or steadying during toilet transfer? No. Patient needs more than incidental help TRANSFERS: TOILET - SCORE: 3-MOD TRANSFERS: SHOWER: Activity did not occur on this shift TRANSFERS: SHOWER - SCORE: 0-UNK TRANSFERS: TUB: Activity did not occur on this shift TRANSFERS: TUB - SCORE: 0-UNK LOCOMOTION: WALK: Activity did not occur on this shift LOCOMOTION: WALK - SCORE: 0-UNK LOCOMOTION: WHEELCHAIR: Activity did not occur on this shift LOCOMOTION: WHEELCHAIR - SCORE: 0-UNK COMPREHENSION: COMPREHENSION: TYPE: Both COMPREHENSION - STEP 1: Does the patient require help to understand complex and abstract ideas (such as current events, finan bradley, discharge planning, medical issues, relationships, etc)? Yes. COMPREHENSION - STEP 2: Does the patient require help to understand questions or statements about basic needs or ideas (such as hunger, thirst, sleep, safety, daily schedule, room location, or discomfort) half or more of the t araceli? No. COMPREHENSION - STEP 3: How often does the patient need help to understand directions and conversation about basic needs? 10% - 24% of the time COMPREHENSION - SCORE: 4-MIN EXPRESSION EXPRESSION: TYPE: Both EXPRESSION - STEP 1: Does the patient require help expressing complex and abstract ideas (such as current events, finances , discharge planning, medical issues, relationships, etc)? Yes. EXPRESSION - STEP 2: Does the patient require help to express basic necessities or ideas (such as hunger, thirst, sleep, s afety, daily schedule, room location, or discomfort) half or more of the time? No. EXPRESSION - STEP 3: How often does the patient need help to express directions and conversation about basic needs? 10-24% of the time EXPRESSION - SCORE: 4-MIN SOCIAL INTERACTION: SOCIAL INTERACTION - STEP 1: Does the patient require a helper to interact with others in social and therapeutic situations? No. SOCIAL INTERACTION - STEP 2: Does the patient need extra time in social situations, OR does s/he interact with staff, other patien ts, and family members ONLY in structured environments, OR does s/he require medication for social in teraction? Yes, patient needs extra time SOCIAL INTERACTION - SCORE: 6-NELLIE PROBLEM SOLVING: PROBLEM SOLVING - STEP 1: Does the patient need help to solve complex problems such as managing a checking account or confronti ng interpersonal problems? Yes. PROBLEM SOLVING - STEP 2: Does the patient solve basic routine problems half or more of the time? Yes. PROBLEM SOLVING - STEP 3: How often does the patient need help to solve basic routine problems? 25%-49% of the time PROBLEM SOLVING - SCORE: 3-MOD MEMORY: MEMORY - STEP 1: Does the patient need help to remember frequently encountered people, daily routines, and executing r equests? Yes. MEMORY - STEP 2: How often does the patient need help to remember frequently encountered people, daily routines, and e xecuting requests? 25% - 49% of the time MEMORY - SCORE: 3-MOD
[2017-12-03] MEDS: BUDESONIDE 0.25 MG/2 ML NEB NEB SCH (07:51)
[2017-12-03] MEDS: ARFORMOTEROL TARTRATE 15 MCG/2 ML VIAL.NEB NEB SCH ×2 (07:51→19:56)
[2017-12-03] MEDS: PROMOD 30 ML DOSE PO SCH ×2 (08:00→20:40)
[2017-12-03] MEDS: SUPLENA IMPAIRED RENAL 237 ML CAN PO SCH ×2 (08:00→20:41)
[2017-12-03] MEDS: guaiFENesin 100 MG/5 ML UCUP PO PRN ×2 (08:02→15:08)
[2017-12-03] MEDS: LIDOCAINE 5% PATCH TOP SCH (08:04)
[2017-12-03] MEDS: DILTIAZEM HCL 120 MG SR CAP PO SCH (08:05)
[2017-12-03] MEDS: PANTOPRAZOLE 40MG TABLET PO SCH ×2 (08:05→16:24)
[2017-12-03] MEDS: TOPIRAMATE 25 MG TAB PO SCH ×2 (08:06→20:13)
[2017-12-03] MEDS: FE SULF/FA/VIT B COMP & C TAB PO SCH (08:06)
[2017-12-03] MEDS: POTASSIUM CL SA 10 MEQ TAB PO SCH (08:06)
[2017-12-03] MEDS: PENTOXIFYLLINE ER 400 MG TAB PO SCH ×3 (08:07→16:24)
[2017-12-03] MEDS: FERROUS SULFATE 325 MG TAB PO SCH ×3 (08:07→20:41)
[2017-12-03] MEDS: CRANBERRY FRUIT EXTRACT 200 MG CAP PO SCH ×2 (08:07→20:13)
[2017-12-03] MEDS: GABAPENTIN 300 MG CAP PO SCH (08:07)
[2017-12-03] MEDS: predniSONE 10 MG TAB PO SCH (08:08)
[2017-12-03] MEDS: CARBIDOPA/LEVODOPA 25/100 TAB PO SCH ×2 (08:08→20:13)
[2017-12-03] MEDS: HYDROCODONE/APAP 5/325 MG TAB PO PRN (08:12)
[2017-12-03] MEDS: METOPROLOL TAR 50 MG TAB PO SCH ×2 (10:25→16:49)
[2017-12-03] MEDS: SUCRALFATE 1 GM TABLET PO SCH ×4 (10:26→20:41)
[2017-12-03] MEDS: FUROSEMIDE 40 MG TABLET PO SCH (12:50)
--- NOTE | 2017-12-03 13:48 | FAST ---
SHIFT START DATE/TIME: 12/03/2017 07:00 (CDT) SHIFT END DATE/TIME: 12/03/2017 19:00 (CDT) NAME MYRA LE DATE OF : 1935 DATE OF ADMISSION: 11/22/2017 22:21 (CDT) PHONE: AGE: 82 SSN# [id number] GENDER: Male ENCOUNTER PHYSICIAN: Dr. Edilberto Colbert M.D. ADMISSION DIAGNOSIS: - Medically Complex Conditions 17 - Other Medically Complex Conditions (17.9) COLON ADENOCARCINOMA. Chronic Renal Disease. COPD. PVD. Parkinson's Disease. EATING: EATING - STEP 1: Does the patient require assistance when eating? Yes. EATING - STEP 2: Does the patient require the assistance of a helper? No, patient only requires an assistive device, O R s/he takes more than reasonable time to eat, OR there is a safety concern, OR s/he requires modifie d food consistency EATING - SCORE: 6-NELLIE GROOMING: Activity did not occur on this shift GROOMING - SCORE: 0-UNK BATHING: Activity did not occur on this shift BATHING - SCORE: 0-UNK DRESSING - UPPER BODY: Activity did not occur on this shift ARTICLES SCORE Total number of steps: 0 DRESSING - UPPER BODY - SCORE: 0-UNK DRESSING - LOWER BODY: Activity did not occur on this shift ARTICLES SCORE Total number of steps: 0 DRESSING - LOWER BODY - SCORE: 0-UNK TOILETING: TOILETING - STEP 1: Does the patient require assistance with toileting? Yes. TOILETING - STEP 2: Does the patient require the assistance of a helper? Yes. TOILETING - STEP 3: How much assistance does the patient require from the helper? Only supervision TOILETING - SCORE: 5-SUP BLADDER MANAGEMENT: BLADDER MANAGEMENT - STEP 1: Does the patient control the bladder completely and intentionally without equipment or devices or med ications, and is always continent? No. BLADDER MANAGEMENT - STEP 2: Does the patient require the assistance of a helper? No, patient only requires extra time BLADDER MANAGEMENT - SCORE: 6-NELLIE BLADDER MANAGEMENT - FREQUENCY OF ACCIDENTS: BLADDER MANAGEMENT(FA) - STEP 1: How many accidents has the patient had during the current shift? 0 BOWEL MANAGEMENT: Activity did not occur on this shift BOWEL MANAGEMENT - SCORE: 7-IND BOWEL MANAGEMENT - FREQUENCY OF ACCIDENTS: BOWEL MANAGEMENT(FA) - STEP 1: How many accidents has the patient had during the current shift? 0 TRANSFERS: BED, CHAIR, WHEELCHAIR: TRANSFERS: BED, CHAIR, WHEELCHAIR - STEP 1: Does the patient require assistance with bed, chair, or wheelchair transfers? Yes. TRANSFERS: BED, CHAIR, WHEELCHAIR - STEP 2: Does the patient require the assistance of a helper? Yes. TRANSFERS: BED, CHAIR, WHEELCHAIR - STEP 3: How much assistance does the patient require from the helper? Steadying/guiding assistance TRANSFERS: BED, CHAIR, WHEELCHAIR - SCORE: 4-MIN TRANSFERS: TOILET: TRANSFERS: TOILET - STEP 1: Does the patient require assistance with toilet transfers? Yes. TRANSFERS: TOILET - STEP 2: Does the patient require the assistance of a helper? No. Patient only requires an assistive device laura ch as a grab bar or special seat, OR s/he takes more than reasonable time to perform toilet transfers , OR there is a safety concern when s/he performs toilet transfers. TRANSFERS: TOILET - SCORE: 6-NELLIE TRANSFERS: SHOWER: Activity did not occur on this shift TRANSFERS: SHOWER - SCORE: 0-UNK TRANSFERS: TUB: Activity did not occur on this shift TRANSFERS: TUB - SCORE: 0-UNK LOCOMOTION: WALK: Activity did not occur on this shift LOCOMOTION: WALK - SCORE: 0-UNK LOCOMOTION: WHEELCHAIR: Activity did not occur on this shift LOCOMOTION: WHEELCHAIR - SCORE: 0-UNK COMPREHENSION: COMPREHENSION: TYPE: Both COMPREHENSION - STEP 1: Does the patient require help to understand complex and abstract ideas (such as current events, finan bradley, discharge planning, medical issues, relationships, etc)? Yes. COMPREHENSION - STEP 2: Does the patient require help to understand questions or statements about basic needs or ideas (such as hunger, thirst, sleep, safety, daily schedule, room location, or discomfort) half or more of the t araceli? No. COMPREHENSION - STEP 3: How often does the patient need help to understand directions and conversation about basic needs? Les s than 10% of the time COMPREHENSION - SCORE: 5-SUP EXPRESSION EXPRESSION: TYPE: Both EXPRESSION - STEP 1: Does the patient require help expressing complex and abstract ideas (such as current events, finances , discharge planning, medical issues, relationships, etc)? No. EXPRESSION - STEP 2: Does the patient need extra time, require an assistive device (such as augmentive communication syste m or a communication board), OR does s/he have mild difficulty expressing complex and abstract ideas (including mild dysarthria or mild word-find problems)? Yes. EXPRESSION - SCORE: 6-NELLIE SOCIAL INTERACTION: SOCIAL INTERACTION - STEP 1: Does the patient require a helper to interact with others in social and therapeutic situations? No. SOCIAL INTERACTION - STEP 2: Does the patient need extra time in social situations, OR does s/he interact with staff, other patien ts, and family members ONLY in structured environments, OR does s/he require medication for social in teraction? Yes, patient needs extra time SOCIAL INTERACTION - SCORE: 6-NELLIE PROBLEM SOLVING: PROBLEM SOLVING - STEP 1: Does the patient need help to solve complex problems such as managing a checking account or confronti ng interpersonal problems? Yes. PROBLEM SOLVING - STEP 2: Does the patient solve basic routine problems half or more of the time? Yes. PROBLEM SOLVING - STEP 3: How often does the patient need help to solve basic routine problems? 10%-24% of the time PROBLEM SOLVING - SCORE: 4-MIN MEMORY: MEMORY - STEP 1: Does the patient need help to remember frequently encountered people, daily routines, and executing r equests? No. MEMORY - STEP 2: Does the patient have slight difficulty recognizing frequently encountered people, daily routines, or executing requests without the need for repetition or using self-initiated or environmental cues to remember? Yes. MEMORY - SCORE: 6-NELLIE SIGNATURE PANEL: The following modified sections: Eating - Score, Grooming - Score, Bathing - Score, Dressing - Upper Body - Score, Dressing - Lower Body - Score, Toileting - Score, Bladder Management - Score, Bowel Man agement - Score, Transfers: Bed, Chair, Wheelchair - Score, Transfers: Toilet - Score, Transfers: Lisa wer - Score, Transfers: Tub - Score, Locomotion: Walk - Score, Locomotion: Wheelchair - Score, Compre hension - Score, Expression - Score, Social Interaction - Score, Problem Solving - Score, Memory - Sc ore were [electronically] signed by Sonia Ford C.N.A. on TueDec 03 2017 13:47:37 T-0500 (Cent[place] Daylight Time)
[2017-12-03] MEDS: LOSARTAN POTASSIUM 50 MG TABLET PO SCH (13:53)
[2017-12-03] MEDS: BENZONATATE 100 MG CAP PO PRN ×2 (15:09→22:09)
[2017-12-03] MEDS: RIVAROXABAN 15 MG TABLET PO SCH (16:24)
[2017-12-03] MEDS: TRAMADOL HCL 50 MG TAB PO PRN (16:49)
[2017-12-03] MEDS: GABAPENTIN 400 MG CAP PO SCH (20:41)
[2017-12-03] MEDS: DIPHENHYDRAMINE 25 MG TAB/CAP PO SCH (20:41)
[2017-12-04] MEDS: IPRATROPIUM BROM 0.5MG/2.5ML NEB SCH ×4 (01:30→20:15)
[2017-12-04] MEDS: ALBUTEROL 2.5 MG/3 ML NEB SOL NEB SCH ×4 (01:30→20:15)
--- NOTE | 2017-12-04 02:33 | FAST ---
SHIFT START DATE/TIME: 12/03/2017 19:00 (CDT) SHIFT END DATE/TIME: 12/04/2017 07:00 (CDT) NAME MYRA LE DATE OF : 1935 DATE OF ADMISSION: 11/22/2017 22:21 (CDT) PHONE: AGE: 82 SSN# [id number] GENDER: Male ENCOUNTER PHYSICIAN: Dr. Edilberto Colbert M.D. ADMISSION DIAGNOSIS: - Medically Complex Conditions 17 - Other Medically Complex Conditions (17.9) COLON ADENOCARCINOMA. Chronic Renal Disease. COPD. PVD. Parkinson's Disease. EATING: Activity did not occur on this shift EATING - SCORE: 0-UNK GROOMING: Activity did not occur on this shift GROOMING - SCORE: 0-UNK BATHING: Activity did not occur on this shift BATHING - SCORE: 0-UNK DRESSING - UPPER BODY: Patient is not dressing in public clothing ARTICLES SCORE Total number of steps: 0 DRESSING - UPPER BODY - SCORE: 0-UNK DRESSING - LOWER BODY: Patient is not dressing in public clothing ARTICLES SCORE Total number of steps: 0 DRESSING - LOWER BODY - SCORE: 0-UNK TOILETING: TOILETING - STEP 1: Does the patient require assistance with toileting? Yes. TOILETING - STEP 2: Does the patient require the assistance of a helper? Yes. TOILETING - STEP 3: How much assistance does the patient require from the helper? Hands-on assistance from the helper TOILETING - STEP 4: Of the 3 tasks: 1) Adjusting clothing prior to use, 2) Cleansing of perineal area, 3) Adjusting clot flor after use; How many tasks does the patient perform WITHOUT assistance of the helper? No tasks; h glenroy performs all three tasks TOILETING - SCORE: 1-DEP BLADDER MANAGEMENT: BLADDER MANAGEMENT - STEP 1: Does the patient control the bladder completely and intentionally without equipment or devices or med ications, and is always continent? No. BLADDER MANAGEMENT - STEP 2: Does the patient require the assistance of a helper? Yes. BLADDER MANAGEMENT - STEP 3: How much assistance does the patient require from the helper? Patient requires contact assistance fro m the helper BLADDER MANAGEMENT - STEP 4: How much contact assistance does the patient require from the helper? Patient requires minimal assist ance to maintain an external device - by positioning, and the patient performs 75% or more of bladder management tasks, while the helper provides less than 25% of the assistance to position patient on / off bedpan BLADDER MANAGEMENT - SCORE: 4-MIN BOWEL MANAGEMENT: BOWEL MANAGEMENT - STEP 1: Does the patient control bowels completely and intentionally without equipment devices or medications AND is always continent? No. BOWEL MANAGEMENT - STEP 2: Does the patient require the assistance of a helper? No, patient requires medication for control such as stool softeners, suppositories, laxatives, enemas, or OTC medications BOWEL MANAGEMENT - SCORE: 6-NELLIE TRANSFERS: BED, CHAIR, WHEELCHAIR: TRANSFERS: BED, CHAIR, WHEELCHAIR - STEP 1: Does the patient require assistance with bed, chair, or wheelchair transfers? Yes. TRANSFERS: BED, CHAIR, WHEELCHAIR - STEP 2: Does the patient require the assistance of a helper? Yes. TRANSFERS: BED, CHAIR, WHEELCHAIR - STEP 3: How much assistance does the patient require from the helper? Lifting of the legs TRANSFERS: BED, CHAIR, WHEELCHAIR - STEP 4: How many legs does the patient require the helper to lift? both legs TRANSFERS: BED, CHAIR, WHEELCHAIR - SCORE: 3-MOD TRANSFERS: TOILET: TRANSFERS: TOILET - STEP 1: Does the patient require assistance with toilet transfers? Yes. TRANSFERS: TOILET - STEP 2: Does the patient require the assistance of a helper? Yes. TRANSFERS: TOILET - STEP 3: How much assistance does the patient require from the helper? Patient performs half or more of the tr ansferring tasks TRANSFERS: TOILET - STEP 4: Does the patient need only incidental help such as contact guard or steadying during toilet transfer? No. Patient needs more than incidental help TRANSFERS: TOILET - SCORE: 3-MOD TRANSFERS: SHOWER: Activity did not occur on this shift TRANSFERS: SHOWER - SCORE: 0-UNK TRANSFERS: TUB: Activity did not occur on this shift TRANSFERS: TUB - SCORE: 0-UNK LOCOMOTION: WALK: Activity did not occur on this shift LOCOMOTION: WALK - SCORE: 0-UNK LOCOMOTION: WHEELCHAIR: Activity did not occur on this shift LOCOMOTION: WHEELCHAIR - SCORE: 0-UNK COMPREHENSION: COMPREHENSION: TYPE: Both COMPREHENSION - STEP 1: Does the patient require help to understand complex and abstract ideas (such as current events, finan bradley, discharge planning, medical issues, relationships, etc)? Yes. COMPREHENSION - STEP 2: Does the patient require help to understand questions or statements about basic needs or ideas (such as hunger, thirst, sleep, safety, daily schedule, room location, or discomfort) half or more of the t araceli? No. COMPREHENSION - STEP 3: How often does the patient need help to understand directions and conversation about basic needs? 10% - 24% of the time COMPREHENSION - SCORE: 4-MIN EXPRESSION EXPRESSION: TYPE: Both EXPRESSION - STEP 1: Does the patient require help expressing complex and abstract ideas (such as current events, finances , discharge planning, medical issues, relationships, etc)? Yes. EXPRESSION - STEP 2: Does the patient require help to express basic necessities or ideas (such as hunger, thirst, sleep, s afety, daily schedule, room location, or discomfort) half or more of the time? No. EXPRESSION - STEP 3: How often does the patient need help to express directions and conversation about basic needs? 10-24% of the time EXPRESSION - SCORE: 4-MIN SOCIAL INTERACTION: SOCIAL INTERACTION - STEP 1: Does the patient require a helper to interact with others in social and therapeutic situations? No. SOCIAL INTERACTION - STEP 2: Does the patient need extra time in social situations, OR does s/he interact with staff, other patien ts, and family members ONLY in structured environments, OR does s/he require medication for social in teraction? Yes, patient needs extra time SOCIAL INTERACTION - SCORE: 6-NELLIE PROBLEM SOLVING: PROBLEM SOLVING - STEP 1: Does the patient need help to solve complex problems such as managing a checking account or confronti ng interpersonal problems? Yes. PROBLEM SOLVING - STEP 2: Does the patient solve basic routine problems half or more of the time? Yes. PROBLEM SOLVING - STEP 3: How often does the patient need help to solve basic routine problems? 10%-24% of the time PROBLEM SOLVING - SCORE: 4-MIN MEMORY: MEMORY - STEP 1: Does the patient need help to remember frequently encountered people, daily routines, and executing r equests? No. MEMORY - STEP 2: Does the patient have slight difficulty recognizing frequently encountered people, daily routines, or executing requests without the need for repetition or using self-initiated or environmental cues to remember? Yes. MEMORY - SCORE: 6-NELLIE SIGNATURE PANEL: The following modified sections: Eating - Score, Grooming - Score, Dressing - Upper Body - Score, Jewel ssing - Lower Body - Score, Toileting - Score, Bladder Management - Score, Bowel Management - Score, Transfers: Bed, Chair, Wheelchair - Score, Transfers: Toilet - Score, Transfers: Shower - Score, Valdez sfers: Tub - Score, Locomotion: Walk - Score, Locomotion: Wheelchair - Score, Comprehension - Score, Expression - Score, Social Interaction - Score, Problem Solving - Score, Memory - Score were [electro nically] signed by Margarita Raza CNA on Sun Dec 04 2017 02:31:38 GMT-0500 (Central Daylight Time)
[2017-12-04] MEDS: PANTOPRAZOLE 40MG TABLET PO SCH ×2 (07:00→17:01)
[2017-12-04] MEDS: BUDESONIDE 0.25 MG/2 ML NEB NEB SCH (08:25)
[2017-12-04] MEDS: ARFORMOTEROL TARTRATE 15 MCG/2 ML VIAL.NEB NEB SCH ×2 (08:25→20:15)
[2017-12-04] MEDS: LIDOCAINE 5% PATCH TOP SCH (09:27)
[2017-12-04] MEDS: PENTOXIFYLLINE ER 400 MG TAB PO SCH ×3 (09:28→17:02)
[2017-12-04] MEDS: DILTIAZEM HCL 120 MG SR CAP PO SCH (09:28)
[2017-12-04] MEDS: FE SULF/FA/VIT B COMP & C TAB PO SCH (09:29)
[2017-12-04] MEDS: FERROUS SULFATE 325 MG TAB PO SCH ×3 (09:29→20:41)
[2017-12-04] MEDS: SUCRALFATE 1 GM TABLET PO SCH ×4 (09:29→20:42)
[2017-12-04] MEDS: predniSONE 10 MG TAB PO SCH (09:29)
[2017-12-04] MEDS: POTASSIUM CL SA 10 MEQ TAB PO SCH (09:29)
[2017-12-04] MEDS: CRANBERRY FRUIT EXTRACT 200 MG CAP PO SCH ×2 (09:30→19:52)
[2017-12-04] MEDS: METOPROLOL TAR 50 MG TAB PO SCH ×2 (09:30→17:06)
[2017-12-04] MEDS: CARBIDOPA/LEVODOPA 25/100 TAB PO SCH ×2 (09:30→19:52)
[2017-12-04] MEDS: TOPIRAMATE 25 MG TAB PO SCH ×2 (09:30→19:52)
[2017-12-04] MEDS: PROMOD 30 ML DOSE PO SCH ×2 (09:31→19:53)
[2017-12-04] MEDS: GABAPENTIN 300 MG CAP PO SCH (09:31)
[2017-12-04] MEDS: SUPLENA IMPAIRED RENAL 237 ML CAN PO SCH ×2 (09:31→19:53)
--- NOTE | 2017-12-04 11:20 | RAD REPORT ---
EXAM DESCRIPTION: RAD - Chest Single View - 12/04/2017 10:32 am CLINICAL HISTORY: increase coughing r/o pnuemonia Chest pain. COMPARISON: Chest Single View dated 11/28/2017; Chest Single View dated 11/24/2017; Chest Single View dated 11/18/2017; Chest Single View dated 11/17/2017 FINDINGS: Portable technique limits examination quality. Mild interstitial pulmonary edema is suspected. The heart is upper limit normal in size. No displaced fractures. IMPRESSION: Mild pulmonary edema suspected.
[2017-12-04] MEDS: FUROSEMIDE 40 MG TABLET PO SCH (12:00)
[2017-12-04] MEDS: LOSARTAN POTASSIUM 50 MG TABLET PO SCH (13:30)
--- NOTE | 2017-12-04 13:32 | FAST ---
SHIFT START DATE/TIME: 12/04/2017 07:00 (CDT) SHIFT END DATE/TIME: 12/04/2017 19:00 (CDT) NAME MYRA LE DATE OF : 1935 DATE OF ADMISSION: 11/22/2017 22:21 (CDT) PHONE: AGE: 82 SSN# [id number] GENDER: Male ENCOUNTER PHYSICIAN: Dr. Edilberto Colbert M.D. ADMISSION DIAGNOSIS: - Medically Complex Conditions 17 - Other Medically Complex Conditions (17.9) COLON ADENOCARCINOMA. Chronic Renal Disease. COPD. PVD. Parkinson's Disease. EATING: EATING - STEP 1: Does the patient require assistance when eating? Yes. EATING - STEP 2: Does the patient require the assistance of a helper? No, patient only requires an assistive device, O R s/he takes more than reasonable time to eat, OR there is a safety concern, OR s/he requires modifie d food consistency EATING - SCORE: 6-NELLIE GROOMING: Activity did not occur on this shift GROOMING - SCORE: 0-UNK BATHING: Activity did not occur on this shift BATHING - SCORE: 0-UNK DRESSING - UPPER BODY: Activity did not occur on this shift ARTICLES SCORE Total number of steps: 0 DRESSING - UPPER BODY - SCORE: 0-UNK DRESSING - LOWER BODY: Activity did not occur on this shift ARTICLES SCORE Total number of steps: 0 DRESSING - LOWER BODY - SCORE: 0-UNK TOILETING: TOILETING - STEP 1: Does the patient require assistance with toileting? Yes. TOILETING - STEP 2: Does the patient require the assistance of a helper? Yes. TOILETING - STEP 3: How much assistance does the patient require from the helper? Hands-on assistance from the helper TOILETING - STEP 4: Of the 3 tasks: 1) Adjusting clothing prior to use, 2) Cleansing of perineal area, 3) Adjusting clot flor after use; How many tasks does the patient perform WITHOUT assistance of the helper? No tasks; h glenroy performs all three tasks TOILETING - SCORE: 1-DEP BLADDER MANAGEMENT: BLADDER MANAGEMENT - STEP 1: Does the patient control the bladder completely and intentionally without equipment or devices or med ications, and is always continent? No. BLADDER MANAGEMENT - STEP 2: Does the patient require the assistance of a helper? Yes. BLADDER MANAGEMENT - STEP 3: How much assistance does the patient require from the helper? Only set-up of equipment - such as plac ing it within reach of the patient or emptying a device - to maintain either satisfactory voiding pat tern or managing an external device, such as an absorbent pad, ileal device, or catheter BLADDER MANAGEMENT - SCORE: 5-SUP BLADDER MANAGEMENT - FREQUENCY OF ACCIDENTS: BLADDER MANAGEMENT(FA) - STEP 1: How many accidents has the patient had during the current shift? 0 BOWEL MANAGEMENT: BOWEL MANAGEMENT - STEP 1: Does the patient control bowels completely and intentionally without equipment devices or medications AND is always continent? No. BOWEL MANAGEMENT - STEP 2: Does the patient require the assistance of a helper? Yes. BOWEL MANAGEMENT - STEP 3: How much assistance does the patient require from the helper? Patient requires supervision, stand by, cueing, coaxing, or setup of equipment - placing within reach of patient and emptying device / bedpa nd or BSC bucket - to maintain either satisfactory bowel pattern or managing an external device such as an absorbent pad, colostomy bag / ileostomy bag BOWEL MANAGEMENT - SCORE: 5-SUP BOWEL MANAGEMENT - FREQUENCY OF ACCIDENTS: BOWEL MANAGEMENT(FA) - STEP 1: How many accidents has the patient had during the current shift? 0 TRANSFERS: BED, CHAIR, WHEELCHAIR: TRANSFERS: BED, CHAIR, WHEELCHAIR - STEP 1: Does the patient require assistance with bed, chair, or wheelchair transfers? Yes. TRANSFERS: BED, CHAIR, WHEELCHAIR - STEP 2: Does the patient require the assistance of a helper? Yes. TRANSFERS: BED, CHAIR, WHEELCHAIR - STEP 3: How much assistance does the patient require from the helper? Steadying/guiding assistance TRANSFERS: BED, CHAIR, WHEELCHAIR - SCORE: 4-MIN TRANSFERS: TOILET: TRANSFERS: TOILET - STEP 1: Does the patient require assistance with toilet transfers? Yes. TRANSFERS: TOILET - STEP 2: Does the patient require the assistance of a helper? Yes. TRANSFERS: TOILET - STEP 3: How much assistance does the patient require from the helper? Only supervision, cuing, coaxing, OR he lp to set out transfer equipment or to lock brakes and/or lift foot rests TRANSFERS: TOILET - SCORE: 5-SUP TRANSFERS: SHOWER: Activity did not occur on this shift TRANSFERS: SHOWER - SCORE: 0-UNK TRANSFERS: TUB: Activity did not occur on this shift TRANSFERS: TUB - SCORE: 0-UNK LOCOMOTION: WALK: Activity did not occur on this shift LOCOMOTION: WALK - SCORE: 0-UNK LOCOMOTION: WHEELCHAIR: Activity did not occur on this shift LOCOMOTION: WHEELCHAIR - SCORE: 0-UNK COMPREHENSION: COMPREHENSION: TYPE: Both COMPREHENSION - STEP 1: Does the patient require help to understand complex and abstract ideas (such as current events, finan bradley, discharge planning, medical issues, relationships, etc)? Yes. COMPREHENSION - STEP 2: Does the patient require help to understand questions or statements about basic needs or ideas (such as hunger, thirst, sleep, safety, daily schedule, room location, or discomfort) half or more of the t araceli? No. COMPREHENSION - STEP 3: How often does the patient need help to understand directions and conversation about basic needs? 10% - 24% of the time COMPREHENSION - SCORE: 4-MIN EXPRESSION EXPRESSION: TYPE: Both EXPRESSION - STEP 1: Does the patient require help expressing complex and abstract ideas (such as current events, finances , discharge planning, medical issues, relationships, etc)? Yes. EXPRESSION - STEP 2: Does the patient require help to express basic necessities or ideas (such as hunger, thirst, sleep, s afety, daily schedule, room location, or discomfort) half or more of the time? No. EXPRESSION - STEP 3: How often does the patient need help to express directions and conversation about basic needs? 10-24% of the time EXPRESSION - SCORE: 4-MIN SOCIAL INTERACTION: SOCIAL INTERACTION - STEP 1: Does the patient require a helper to interact with others in social and therapeutic situations? No. SOCIAL INTERACTION - STEP 2: Does the patient need extra time in social situations, OR does s/he interact with staff, other patien ts, and family members ONLY in structured environments, OR does s/he require medication for social in teraction? Yes, patient needs extra time SOCIAL INTERACTION - SCORE: 6-NELLIE PROBLEM SOLVING: PROBLEM SOLVING - STEP 1: Does the patient need help to solve complex problems such as managing a checking account or confronti ng interpersonal problems? Yes. PROBLEM SOLVING - STEP 2: Does the patient solve basic routine problems half or more of the time? Yes. PROBLEM SOLVING - STEP 3: How often does the patient need help to solve basic routine problems? 10%-24% of the time PROBLEM SOLVING - SCORE: 4-MIN MEMORY: MEMORY - STEP 1: Does the patient need help to remember frequently encountered people, daily routines, and executing r equests? No. MEMORY - STEP 2: Does the patient have slight difficulty recognizing frequently encountered people, daily routines, or executing requests without the need for repetition or using self-initiated or environmental cues to remember? Yes. MEMORY - SCORE: 6-NELLIE SIGNATURE PANEL: The following modified sections: Eating - Score, Grooming - Score, Bathing - Score, Dressing - Upper Body - Score, Dressing - Lower Body - Score, Toileting - Score, Bladder Management - Score, Bowel Man agement - Score, Transfers: Bed, Chair, Wheelchair - Score, Transfers: Toilet - Score, Transfers: Lisa wer - Score, Transfers: Tub - Score, Locomotion: Walk - Score, Locomotion: Wheelchair - Score, Compre hension - Score, Expression - Score, Social Interaction - Score, Problem Solving - Score, Memory - Sc ore were [electronically] signed by Sonia Ford C.N.A. on TueDec 04 2017 13:32:15 T-0500 (Centra l Daylight Time)
[2017-12-04] MEDS: TRAMADOL HCL 50 MG TAB PO PRN (17:02)
[2017-12-04] MEDS: guaiFENesin 100 MG/5 ML UCUP PO PRN (17:04)
[2017-12-04] MEDS: FUROSEMIDE 20 MG TABLET PO SCH (17:05)
[2017-12-04] MEDS: RIVAROXABAN 15 MG TABLET PO SCH (17:06)
[2017-12-04] MEDS: BENZONATATE 100 MG CAP PO PRN (19:52)
[2017-12-04] MEDS: GABAPENTIN 400 MG CAP PO SCH (20:41)
[2017-12-04] MEDS: DIPHENHYDRAMINE 25 MG TAB/CAP PO SCH (20:41)
[2017-12-04] MEDS: LORAZEPAM 0.5 MG TABLET PO PRN (20:41)
[2017-12-05] MEDS: ALBUTEROL 2.5 MG/3 ML NEB SOL NEB SCH ×4 (02:05→19:55)
[2017-12-05] MEDS: IPRATROPIUM BROM 0.5MG/2.5ML NEB SCH ×4 (02:05→19:55)
--- NOTE | 2017-12-05 02:08 | FAST ---
SHIFT START DATE/TIME: 12/04/2017 19:00 (CDT) SHIFT END DATE/TIME: 12/05/2017 07:00 (CDT) NAME MYRA LE DATE OF : 1935 DATE OF ADMISSION: 11/22/2017 22:21 (CDT) PHONE: AGE: 82 SSN# [id number] GENDER: Male ENCOUNTER PHYSICIAN: Dr. Edilberto Colbert M.D. ADMISSION DIAGNOSIS: - Medically Complex Conditions 17 - Other Medically Complex Conditions (17.9) COLON ADENOCARCINOMA. Chronic Renal Disease. COPD. PVD. Parkinson's Disease. EATING: Activity did not occur on this shift EATING - SCORE: 0-UNK GROOMING: Activity did not occur on this shift GROOMING - SCORE: 0-UNK BATHING: Activity did not occur on this shift BATHING - SCORE: 0-UNK DRESSING - UPPER BODY: Patient is not dressing in public clothing ARTICLES SCORE Total number of steps: 0 DRESSING - UPPER BODY - SCORE: 0-UNK DRESSING - LOWER BODY: Patient is not dressing in public clothing ARTICLES SCORE Total number of steps: 0 DRESSING - LOWER BODY - SCORE: 0-UNK TOILETING: TOILETING - STEP 1: Does the patient require assistance with toileting? Yes. TOILETING - STEP 2: Does the patient require the assistance of a helper? Yes. TOILETING - STEP 3: How much assistance does the patient require from the helper? Hands-on assistance from the helper TOILETING - STEP 4: Of the 3 tasks: 1) Adjusting clothing prior to use, 2) Cleansing of perineal area, 3) Adjusting clot flor after use; How many tasks does the patient perform WITHOUT assistance of the helper? No tasks; h elper performs all three tasks TOILETING - SCORE: 1-DEP BLADDER MANAGEMENT: [place] removes incontinent device (Depends, pull ups, etc.); cleans the patient after accident / inco ntinent episode; and, applies new incontinent device. BLADDER MANAGEMENT - SCORE: 1-DEP BOWEL MANAGEMENT: [place] removes incontinent device (depends, pull ups, etc.); cleans the patient after accident / inco ntinent episode; and, applies new device (depends, pull-ups, padding, etc.). BOWEL MANAGEMENT - SCORE: 1-DEP TRANSFERS: BED, CHAIR, WHEELCHAIR: TRANSFERS: BED, CHAIR, WHEELCHAIR - STEP 1: Does the patient require assistance with bed, chair, or wheelchair transfers? Yes. TRANSFERS: BED, CHAIR, WHEELCHAIR - STEP 2: Does the patient require the assistance of a helper? Yes. TRANSFERS: BED, CHAIR, WHEELCHAIR - STEP 3: How much assistance does the patient require from the helper? Lifting of the legs TRANSFERS: BED, CHAIR, WHEELCHAIR - STEP 4: How many legs does the patient require the helper to lift? both legs TRANSFERS: BED, CHAIR, WHEELCHAIR - SCORE: 3-MOD TRANSFERS: TOILET: TRANSFERS: TOILET - STEP 1: Does the patient require assistance with toilet transfers? Yes. TRANSFERS: TOILET - STEP 2: Does the patient require the assistance of a helper? Yes. TRANSFERS: TOILET - STEP 3: How much assistance does the patient require from the helper? Patient performs half or more of the tr ansferring tasks TRANSFERS: TOILET - STEP 4: Does the patient need only incidental help such as contact guard or steadying during toilet transfer? No. Patient needs more than incidental help TRANSFERS: TOILET - SCORE: 3-MOD TRANSFERS: SHOWER: Activity did not occur on this shift TRANSFERS: SHOWER - SCORE: 0-UNK TRANSFERS: TUB: Activity did not occur on this shift TRANSFERS: TUB - SCORE: 0-UNK LOCOMOTION: WALK: Activity did not occur on this shift LOCOMOTION: WALK - SCORE: 0-UNK LOCOMOTION: WHEELCHAIR: Activity did not occur on this shift LOCOMOTION: WHEELCHAIR - SCORE: 0-UNK COMPREHENSION: COMPREHENSION: TYPE: Both COMPREHENSION - STEP 1: Does the patient require help to understand complex and abstract ideas (such as current events, finan bradley, discharge planning, medical issues, relationships, etc)? Yes. COMPREHENSION - STEP 2: Does the patient require help to understand questions or statements about basic needs or ideas (such as hunger, thirst, sleep, safety, daily schedule, room location, or discomfort) half or more of the t araceli? No. COMPREHENSION - STEP 3: How often does the patient need help to understand directions and conversation about basic needs? 10% - 24% of the time COMPREHENSION - SCORE: 4-MIN EXPRESSION EXPRESSION: TYPE: Both EXPRESSION - STEP 1: Does the patient require help expressing complex and abstract ideas (such as current events, finances , discharge planning, medical issues, relationships, etc)? Yes. EXPRESSION - STEP 2: Does the patient require help to express basic necessities or ideas (such as hunger, thirst, sleep, s afety, daily schedule, room location, or discomfort) half or more of the time? No. EXPRESSION - STEP 3: How often does the patient need help to express directions and conversation about basic needs? 10-24% of the time EXPRESSION - SCORE: 4-MIN SOCIAL INTERACTION: SOCIAL INTERACTION - STEP 1: Does the patient require a helper to interact with others in social and therapeutic situations? No. SOCIAL INTERACTION - STEP 2: Does the patient need extra time in social situations, OR does s/he interact with staff, other patien ts, and family members ONLY in structured environments, OR does s/he require medication for social in teraction? Yes, patient needs extra time SOCIAL INTERACTION - SCORE: 6-NELLIE PROBLEM SOLVING: PROBLEM SOLVING - STEP 1: Does the patient need help to solve complex problems such as managing a checking account or confronti ng interpersonal problems? Yes. PROBLEM SOLVING - STEP 2: Does the patient solve basic routine problems half or more of the time? Yes. PROBLEM SOLVING - STEP 3: How often does the patient need help to solve basic routine problems? 25%-49% of the time PROBLEM SOLVING - SCORE: 3-MOD MEMORY: MEMORY - STEP 1: Does the patient need help to remember frequently encountered people, daily routines, and executing r equests? No. MEMORY - STEP 2: Does the patient have slight difficulty recognizing frequently encountered people, daily routines, or executing requests without the need for repetition or using self-initiated or environmental cues to remember? Yes. MEMORY - SCORE: 6-NELLIE SIGNATURE PANEL: The following modified sections: Eating - Score, Grooming - Score, Dressing - Upper Body - Score, Jewel ssing - Lower Body - Score, Toileting - Score, Bladder Management - Score, Bowel Management - Score, Transfers: Bed, Chair, Wheelchair - Score, Transfers: Toilet - Score, Transfers: Shower - Score, Valdez sfers: Tub - Score, Locomotion: Walk - Score, Locomotion: Wheelchair - Score, Comprehension - Score, Expression - Score, Social Interaction - Score, Problem Solving - Score, Memory - Score were [electro nically] signed by Margarita Raza CNA on TueDec 05 2017 02:07:43 GMT-0500 (Central Daylight Time)
[2017-12-05] MEDS: BUDESONIDE 0.25 MG/2 ML NEB NEB SCH (07:25)
[2017-12-05] MEDS: ARFORMOTEROL TARTRATE 15 MCG/2 ML VIAL.NEB NEB SCH ×2 (07:25→19:55)
[2017-12-05] MEDS: METOPROLOL TAR 50 MG TAB PO SCH ×2 (08:00→17:00)
[2017-12-05] MEDS: GABAPENTIN 300 MG CAP PO SCH (08:04)
[2017-12-05] MEDS: PENTOXIFYLLINE ER 400 MG TAB PO SCH ×3 (08:04→17:05)
[2017-12-05] MEDS: LIDOCAINE 5% PATCH TOP SCH (08:04)
[2017-12-05] MEDS: SUCRALFATE 1 GM TABLET PO SCH ×4 (08:04→20:45)
[2017-12-05] MEDS: HYDROCODONE/APAP 5/325 MG TAB PO PRN ×2 (08:05→13:12)
[2017-12-05] MEDS: FERROUS SULFATE 325 MG TAB PO SCH ×3 (08:05→20:43)
[2017-12-05] MEDS: TOPIRAMATE 25 MG TAB PO SCH ×2 (08:05→20:45)
[2017-12-05] MEDS: FE SULF/FA/VIT B COMP & C TAB PO SCH (08:05)
[2017-12-05] MEDS: CARBIDOPA/LEVODOPA 25/100 TAB PO SCH ×2 (08:05→20:45)
[2017-12-05] MEDS: PANTOPRAZOLE 40MG TABLET PO SCH ×2 (08:05→17:05)
[2017-12-05] MEDS: POTASSIUM CL SA 10 MEQ TAB PO SCH (08:05)
[2017-12-05] MEDS: predniSONE 10 MG TAB PO SCH (08:06)
[2017-12-05] MEDS: FUROSEMIDE 20 MG TABLET PO SCH ×2 (08:06→17:00)
[2017-12-05] MEDS: CRANBERRY FRUIT EXTRACT 200 MG CAP PO SCH ×2 (08:06→20:44)
[2017-12-05] MEDS: DILTIAZEM HCL 120 MG SR CAP PO SCH (08:06)
[2017-12-05] MEDS: PROMOD 30 ML DOSE PO SCH ×2 (08:07→20:00)
[2017-12-05] MEDS: SUPLENA IMPAIRED RENAL 237 ML CAN PO SCH ×2 (08:07→20:00)
--- NOTE | 2017-12-05 11:14 | FAST ---
ENCOUNTER DATE AND TIME: 12/01/2017 08:00 (CDT) NAME MYRA LE DATE OF : 1935 DATE OF ADMISSION: 11/22/2017 22:21 (CDT) PHONE: AGE: 82 SSN# [id number] GENDER: Male ENCOUNTER PHYSICIAN: Dr. Edilberto Colbert M.D. ADMISSION DIAGNOSIS: - Medically Complex Conditions 17 - Other Medically Complex Conditions (17.9) COLON ADENOCARCINOMA. Chronic Renal Disease. COPD. PVD. Parkinson's Disease. EATING: Activity did not occur on this shift EATING - SCORE: 0-UNK GROOMING: Activity did not occur on this shift GROOMING - SCORE: 0-UNK BATHING: Activity did not occur on this shift BATHING - SCORE: 0-UNK DRESSING - UPPER BODY: Activity did not occur on this shift Patient is not dressing in public clothing ARTICLES SCORE Total number of steps: 0 DRESSING - UPPER BODY - SCORE: 0-UNK DRESSING - LOWER BODY: Activity did not occur on this shift Patient is not dressing in public clothing ARTICLES SCORE Total number of steps: 0 DRESSING - LOWER BODY - SCORE: 0-UNK TOILETING: Activity did not occur on this shift TOILETING - SCORE: 0-UNK BLADDER MANAGEMENT: Activity did not occur on this shift BLADDER MANAGEMENT - SCORE: 7-IND BOWEL MANAGEMENT: Activity did not occur on this shift BOWEL MANAGEMENT - SCORE: 7-IND TRANSFERS: BED, CHAIR, WHEELCHAIR: TRANSFERS: BED, CHAIR, WHEELCHAIR - STEP 1: Does the patient require assistance with bed, chair, or wheelchair transfers? Yes. TRANSFERS: BED, CHAIR, WHEELCHAIR - STEP 2: Does the patient require the assistance of a helper? Yes. TRANSFERS: BED, CHAIR, WHEELCHAIR - STEP 3: How much assistance does the patient require from the helper? Only supervision TRANSFERS: BED, CHAIR, WHEELCHAIR - SCORE: 5-SUP TRANSFERS: TOILET: Activity did not occur on this shift TRANSFERS: TOILET - SCORE: 0-UNK TRANSFERS: SHOWER: Activity did not occur on this shift TRANSFERS: SHOWER - SCORE: 0-UNK TRANSFERS: TUB: Activity did not occur on this shift TRANSFERS: TUB - SCORE: 0-UNK LOCOMOTION: WALK: LOCOMOTION: WALK - STEP 1: Does the patient need help to walk 150 feet? Yes. LOCOMOTION: WALK - STEP 2: How much assistance does the patient require to walk a minimum of 150 feet? Only supervision, cuing, or coaxing LOCOMOTION: WALK - SCORE: 5-SUP LOCOMOTION: WHEELCHAIR: LOCOMOTION: WHEELCHAIR - STEP 1: Does the patient need help to go 150 feet in a wheelchair? Yes. LOCOMOTION: WHEELCHAIR - STEP 2: How much assistance does the patient need from the helper? Only supervision, cuing, or coaxing LOCOMOTION: WHEELCHAIR - SCORE: 5-SUP LOCOMOTION: STAIRS: Activity did not occur on this shift LOCOMOTION: STAIRS - SCORE: 0-UNK COMPREHENSION: COMPREHENSION - SCORE: 0-UNK EXPRESSION EXPRESSION - SCORE: 0-UNK SOCIAL INTERACTION: SOCIAL INTERACTION - SCORE: 0-UNK PROBLEM SOLVING: PROBLEM SOLVING - SCORE: 0-UNK MEMORY: MEMORY - SCORE: 0-UNK SIGNATURE PANEL: The following modified sections: Transfers: Bed, Chair, Wheelchair - Score, Transfers: Toilet - Score , Locomotion: Walk - Score, Locomotion: Wheelchair - Score, Locomotion: Stairs - Score were [electron jass] signed by Cr Mackey PTA on TueDec 05 2017 11:13:20 GMT-0500 (Central Daylight Time)
--- NOTE | 2017-12-05 11:20 | FAST ---
ENCOUNTER DATE AND TIME: 11/30/2017 08:00 (CDT) NAME MYRA LE DATE OF : 1935 DATE OF ADMISSION: 11/22/2017 22:21 (CDT) PHONE: AGE: 82 SSN# [id number] GENDER: Male ENCOUNTER PHYSICIAN: Dr. Edilberto Colbert M.D. ADMISSION DIAGNOSIS: - Medically Complex Conditions 17 - Other Medically Complex Conditions (17.9) COLON ADENOCARCINOMA. Chronic Renal Disease. COPD. PVD. Parkinson's Disease. EATING: Activity did not occur on this shift EATING - SCORE: 0-UNK GROOMING: Activity did not occur on this shift GROOMING - SCORE: 0-UNK BATHING: Activity did not occur on this shift BATHING - SCORE: 0-UNK DRESSING - UPPER BODY: Activity did not occur on this shift Patient is not dressing in public clothing ARTICLES SCORE Total number of steps: 0 DRESSING - UPPER BODY - SCORE: 0-UNK DRESSING - LOWER BODY: Activity did not occur on this shift Patient is not dressing in public clothing ARTICLES SCORE Total number of steps: 0 DRESSING - LOWER BODY - SCORE: 0-UNK TOILETING: Activity did not occur on this shift TOILETING - SCORE: 0-UNK BLADDER MANAGEMENT: Activity did not occur on this shift BLADDER MANAGEMENT - SCORE: 7-IND BOWEL MANAGEMENT: Activity did not occur on this shift BOWEL MANAGEMENT - SCORE: 7-IND TRANSFERS: BED, CHAIR, WHEELCHAIR: TRANSFERS: BED, CHAIR, WHEELCHAIR - STEP 1: Does the patient require assistance with bed, chair, or wheelchair transfers? Yes. TRANSFERS: BED, CHAIR, WHEELCHAIR - STEP 2: Does the patient require the assistance of a helper? Yes. TRANSFERS: BED, CHAIR, WHEELCHAIR - STEP 3: How much assistance does the patient require from the helper? Only supervision TRANSFERS: BED, CHAIR, WHEELCHAIR - SCORE: 5-SUP TRANSFERS: TOILET: TRANSFERS: TOILET - STEP 1: Does the patient require assistance with toilet transfers? Yes. TRANSFERS: TOILET - STEP 2: Does the patient require the assistance of a helper? Yes. TRANSFERS: TOILET - STEP 3: How much assistance does the patient require from the helper? Only supervision, cuing, coaxing, OR he lp to set out transfer equipment or to lock brakes and/or lift foot rests TRANSFERS: TOILET - SCORE: 5-SUP TRANSFERS: SHOWER: Activity did not occur on this shift TRANSFERS: SHOWER - SCORE: 0-UNK TRANSFERS: TUB: Activity did not occur on this shift TRANSFERS: TUB - SCORE: 0-UNK LOCOMOTION: WALK: LOCOMOTION: WALK - STEP 1: Does the patient need help to walk 150 feet? Yes. LOCOMOTION: WALK - STEP 2: How much assistance does the patient require to walk a minimum of 150 feet? Only supervision, cuing, or coaxing LOCOMOTION: WALK - SCORE: 5-SUP LOCOMOTION: WHEELCHAIR: LOCOMOTION: WHEELCHAIR - STEP 1: Does the patient need help to go 150 feet in a wheelchair? Yes. LOCOMOTION: WHEELCHAIR - STEP 2: How much assistance does the patient need from the helper? Only supervision, cuing, or coaxing LOCOMOTION: WHEELCHAIR - SCORE: 5-SUP LOCOMOTION: STAIRS: Activity did not occur on this shift LOCOMOTION: STAIRS - SCORE: 0-UNK COMPREHENSION: COMPREHENSION - SCORE: 0-UNK EXPRESSION EXPRESSION - SCORE: 0-UNK SOCIAL INTERACTION: SOCIAL INTERACTION - SCORE: 0-UNK PROBLEM SOLVING: PROBLEM SOLVING - SCORE: 0-UNK MEMORY: MEMORY - SCORE: 0-UNK SIGNATURE PANEL: The following modified sections: Transfers: Bed, Chair, Wheelchair - Score, Transfers: Toilet - Score , Locomotion: Walk - Score, Locomotion: Wheelchair - Score, Locomotion: Stairs - Score were [electron jass] signed by Cr Mackey PTA on TueDec 05 2017 11:19:40 GMT-0500 (Central Daylight Time)
--- NOTE | 2017-12-05 11:21 | FAST ---
ENCOUNTER DATE AND TIME: 11/29/2017 08:00 (CDT) NAME MYRA LE DATE OF : 1935 DATE OF ADMISSION: 11/22/2017 22:21 (CDT) PHONE: AGE: 82 SSN# [id number] GENDER: Male ENCOUNTER PHYSICIAN: Dr. Edilberto Colbert M.D. ADMISSION DIAGNOSIS: - Medically Complex Conditions 17 - Other Medically Complex Conditions (17.9) COLON ADENOCARCINOMA. Chronic Renal Disease. COPD. PVD. Parkinson's Disease. EATING: Activity did not occur on this shift EATING - SCORE: 0-UNK GROOMING: Activity did not occur on this shift GROOMING - SCORE: 0-UNK BATHING: Activity did not occur on this shift BATHING - SCORE: 0-UNK DRESSING - UPPER BODY: Activity did not occur on this shift Patient is not dressing in public clothing ARTICLES SCORE Total number of steps: 0 DRESSING - UPPER BODY - SCORE: 0-UNK DRESSING - LOWER BODY: Activity did not occur on this shift Patient is not dressing in public clothing ARTICLES SCORE Total number of steps: 0 DRESSING - LOWER BODY - SCORE: 0-UNK TOILETING: Activity did not occur on this shift TOILETING - SCORE: 0-UNK BLADDER MANAGEMENT: Activity did not occur on this shift BLADDER MANAGEMENT - SCORE: 7-IND BOWEL MANAGEMENT: Activity did not occur on this shift BOWEL MANAGEMENT - SCORE: 7-IND TRANSFERS: BED, CHAIR, WHEELCHAIR: TRANSFERS: BED, CHAIR, WHEELCHAIR - STEP 1: Does the patient require assistance with bed, chair, or wheelchair transfers? Yes. TRANSFERS: BED, CHAIR, WHEELCHAIR - STEP 2: Does the patient require the assistance of a helper? Yes. TRANSFERS: BED, CHAIR, WHEELCHAIR - STEP 3: How much assistance does the patient require from the helper? Only supervision TRANSFERS: BED, CHAIR, WHEELCHAIR - SCORE: 5-SUP TRANSFERS: TOILET: TRANSFERS: TOILET - STEP 1: Does the patient require assistance with toilet transfers? Yes. TRANSFERS: TOILET - STEP 2: Does the patient require the assistance of a helper? Yes. TRANSFERS: TOILET - STEP 3: How much assistance does the patient require from the helper? Only supervision, cuing, coaxing, OR he lp to set out transfer equipment or to lock brakes and/or lift foot rests TRANSFERS: TOILET - SCORE: 5-SUP TRANSFERS: SHOWER: Activity did not occur on this shift TRANSFERS: SHOWER - SCORE: 0-UNK TRANSFERS: TUB: Activity did not occur on this shift TRANSFERS: TUB - SCORE: 0-UNK LOCOMOTION: WALK: LOCOMOTION: WALK - STEP 1: Does the patient need help to walk 150 feet? Yes. LOCOMOTION: WALK - STEP 2: How much assistance does the patient require to walk a minimum of 150 feet? Only supervision, cuing, or coaxing LOCOMOTION: WALK - SCORE: 5-SUP LOCOMOTION: WHEELCHAIR: Activity did not occur on this shift LOCOMOTION: WHEELCHAIR - SCORE: 0-UNK LOCOMOTION: STAIRS: Activity did not occur on this shift LOCOMOTION: STAIRS - SCORE: 0-UNK COMPREHENSION: COMPREHENSION - SCORE: 0-UNK EXPRESSION EXPRESSION - SCORE: 0-UNK SOCIAL INTERACTION: SOCIAL INTERACTION - SCORE: 0-UNK PROBLEM SOLVING: PROBLEM SOLVING - SCORE: 0-UNK MEMORY: MEMORY - SCORE: 0-UNK SIGNATURE PANEL: The following modified sections: Transfers: Bed, Chair, Wheelchair - Score, Transfers: Toilet - Score , Locomotion: Walk - Score, Locomotion: Wheelchair - Score, Locomotion: Stairs - Score were [electron ically] signed by Cr Mackey PTA on TueDec 05 2017 11:20:57 GMT-0500 (Central Daylight Time)
--- NOTE | 2017-12-05 11:23 | FAST ---
ENCOUNTER DATE AND TIME: 11/28/2017 08:00 (CDT) NAME MYRA LE DATE OF : 1935 DATE OF ADMISSION: 11/22/2017 22:21 (CDT) PHONE: AGE: 82 SSN# [id number] GENDER: Male ENCOUNTER PHYSICIAN: Dr. Edilberto Colbert M.D. ADMISSION DIAGNOSIS: - Medically Complex Conditions 17 - Other Medically Complex Conditions (17.9) COLON ADENOCARCINOMA. Chronic Renal Disease. COPD. PVD. Parkinson's Disease. EATING: Activity did not occur on this shift EATING - SCORE: 0-UNK GROOMING: Activity did not occur on this shift GROOMING - SCORE: 0-UNK BATHING: Activity did not occur on this shift BATHING - SCORE: 0-UNK DRESSING - UPPER BODY: Activity did not occur on this shift Patient is not dressing in public clothing ARTICLES SCORE Total number of steps: 0 DRESSING - UPPER BODY - SCORE: 0-UNK DRESSING - LOWER BODY: Activity did not occur on this shift Patient is not dressing in public clothing ARTICLES SCORE Total number of steps: 0 DRESSING - LOWER BODY - SCORE: 0-UNK TOILETING: Activity did not occur on this shift TOILETING - SCORE: 0-UNK BLADDER MANAGEMENT: Activity did not occur on this shift BLADDER MANAGEMENT - SCORE: 7-IND BOWEL MANAGEMENT: Activity did not occur on this shift BOWEL MANAGEMENT - SCORE: 7-IND TRANSFERS: BED, CHAIR, WHEELCHAIR: TRANSFERS: BED, CHAIR, WHEELCHAIR - STEP 1: Does the patient require assistance with bed, chair, or wheelchair transfers? Yes. TRANSFERS: BED, CHAIR, WHEELCHAIR - STEP 2: Does the patient require the assistance of a helper? Yes. TRANSFERS: BED, CHAIR, WHEELCHAIR - STEP 3: How much assistance does the patient require from the helper? Steadying/guiding assistance TRANSFERS: BED, CHAIR, WHEELCHAIR - SCORE: 4-MIN TRANSFERS: TOILET: TRANSFERS: TOILET - STEP 1: Does the patient require assistance with toilet transfers? Yes. TRANSFERS: TOILET - STEP 2: Does the patient require the assistance of a helper? Yes. TRANSFERS: TOILET - STEP 3: How much assistance does the patient require from the helper? Patient performs half or more of the tr ansferring tasks TRANSFERS: TOILET - STEP 4: Does the patient need only incidental help such as contact guard or steadying during toilet transfer? Yes. TRANSFERS: TOILET - SCORE: 4-MIN TRANSFERS: SHOWER: Activity did not occur on this shift TRANSFERS: SHOWER - SCORE: 0-UNK TRANSFERS: TUB: Activity did not occur on this shift TRANSFERS: TUB - SCORE: 0-UNK LOCOMOTION: WALK: LOCOMOTION: WALK - STEP 1: Does the patient need help to walk 150 feet? Yes. LOCOMOTION: WALK - STEP 2: How much assistance does the patient require to walk a minimum of 150 feet? Patient walks less than 1 50 feet - but more than 50 feet - with the assistance of only one helper LOCOMOTION: WALK - SCORE: 2-MAX LOCOMOTION: WHEELCHAIR: LOCOMOTION: WHEELCHAIR - STEP 1: Does the patient need help to go 150 feet in a wheelchair? Yes. LOCOMOTION: WHEELCHAIR - STEP 2: How much assistance does the patient need from the helper? Only supervision, cuing, or coaxing LOCOMOTION: WHEELCHAIR - SCORE: 5-SUP LOCOMOTION: STAIRS: Activity did not occur on this shift LOCOMOTION: STAIRS - SCORE: 0-UNK COMPREHENSION: COMPREHENSION - SCORE: 0-UNK EXPRESSION EXPRESSION - SCORE: 0-UNK SOCIAL INTERACTION: SOCIAL INTERACTION - SCORE: 0-UNK PROBLEM SOLVING: PROBLEM SOLVING - SCORE: 0-UNK MEMORY: MEMORY - SCORE: 0-UNK SIGNATURE PANEL: The following modified sections: Transfers: Bed, Chair, Wheelchair - Score, Transfers: Toilet - Score , Locomotion: Walk - Score, Locomotion: Wheelchair - Score, Locomotion: Stairs - Score were [electron jass] signed by Cr Mackey PTA on TueDec 05 2017 11:22:25 GMT-0500 (Central Daylight Time)
[2017-12-05 15:07] LABS: Absolute Lymphocytes (CBC) 0.6 K/uL (0.7-4.9); Absolute Monocytes 0.4 K/uL (0.1-1.3); Absolute Neutrophil 8.6 K/uL (1.8-8.0); Basophils % 0.2 % (0-1.3); Hematocrit 28.7 % (39.6-49.0); Lymphocytes % 6.2 % (15.3-44.8); MCH 23.4 pg (27.0-35.0); MCV 74.9 fL (80-100); MPV 9.8 fL (7.6-11.3); Monocytes % 4.5 % (3.3-12.3); RBC Red Blood Cell Count 3.83 M/uL (4.33-5.43)
[2017-12-05] MEDS: LORAZEPAM 0.5 MG TABLET PO PRN (15:25)
[2017-12-05 15:26] LABS: Urine White Blood Cell Casts OK
[2017-12-05 15:27] LABS: Anisocytosis 3+; Blood Morphology Comment NOTED (NOT SEEN); Elliptocytes 1+; Macrocytosis 1+; Platelet Estimate ADEQ; Poikilocytosis 3+
[2017-12-05 15:28] LABS: Platelets, Giant FEW
[2017-12-05] MEDS: RIVAROXABAN 15 MG TABLET PO SCH (17:05)
[2017-12-05] MEDS: GABAPENTIN 400 MG CAP PO SCH (20:44)
[2017-12-05] MEDS: MAGNESIUM OXIDE 400 MG TAB PO SCH (20:45)
[2017-12-05] MEDS: DIPHENHYDRAMINE 25 MG TAB/CAP PO SCH (20:45)
[2017-12-06] MEDS: IPRATROPIUM BROM 0.5MG/2.5ML NEB SCH ×4 (01:45→20:14)
[2017-12-06] MEDS: ALBUTEROL 2.5 MG/3 ML NEB SOL NEB SCH ×4 (01:45→20:13)
--- NOTE | 2017-12-06 01:47 | FAST ---
SHIFT START DATE/TIME: 12/05/2017 19:00 (CDT) SHIFT END DATE/TIME: 12/06/2017 07:00 (CDT) NAME MYRA LE DATE OF : 1935 DATE OF ADMISSION: 11/22/2017 22:21 (CDT) PHONE: AGE: 82 SSN# [id number] GENDER: Male ENCOUNTER PHYSICIAN: Dr. Edilberto Colbert M.D. ADMISSION DIAGNOSIS: - Medically Complex Conditions 17 - Other Medically Complex Conditions (17.9) COLON ADENOCARCINOMA. Chronic Renal Disease. COPD. PVD. Parkinson's Disease. EATING: Activity did not occur on this shift EATING - SCORE: 0-UNK GROOMING: Activity did not occur on this shift GROOMING - SCORE: 0-UNK BATHING: Activity did not occur on this shift BATHING - SCORE: 0-UNK DRESSING - UPPER BODY: Patient is not dressing in public clothing ARTICLES SCORE Total number of steps: 0 DRESSING - UPPER BODY - SCORE: 0-UNK DRESSING - LOWER BODY: Patient is not dressing in public clothing ARTICLES SCORE Total number of steps: 0 DRESSING - LOWER BODY - SCORE: 0-UNK TOILETING: TOILETING - STEP 1: Does the patient require assistance with toileting? Yes. TOILETING - STEP 2: Does the patient require the assistance of a helper? Yes. TOILETING - STEP 3: How much assistance does the patient require from the helper? Hands-on assistance from the helper TOILETING - STEP 4: Of the 3 tasks: 1) Adjusting clothing prior to use, 2) Cleansing of perineal area, 3) Adjusting clot flor after use; How many tasks does the patient perform WITHOUT assistance of the helper? No tasks; h glenroy performs all three tasks TOILETING - SCORE: 1-DEP BLADDER MANAGEMENT: BLADDER MANAGEMENT - STEP 1: Does the patient control the bladder completely and intentionally without equipment or devices or med ications, and is always continent? No. BLADDER MANAGEMENT - STEP 2: Does the patient require the assistance of a helper? Yes. BLADDER MANAGEMENT - STEP 3: How much assistance does the patient require from the helper? Patient requires contact assistance fro m the helper BLADDER MANAGEMENT - STEP 4: How much contact assistance does the patient require from the helper? Patient requires minimal assist ance to maintain an external device - by positioning, and the patient performs 75% or more of bladder management tasks, while the helper provides less than 25% of the assistance to position patient on / off bedpan BLADDER MANAGEMENT - SCORE: 4-MIN BOWEL MANAGEMENT: Activity did not occur on this shift BOWEL MANAGEMENT - SCORE: 7-IND TRANSFERS: BED, CHAIR, WHEELCHAIR: Activity did not occur on this shift TRANSFERS: BED, CHAIR, WHEELCHAIR - SCORE: 0-UNK TRANSFERS: TOILET: Activity did not occur on this shift TRANSFERS: TOILET - SCORE: 0-UNK TRANSFERS: SHOWER: Activity did not occur on this shift TRANSFERS: SHOWER - SCORE: 0-UNK TRANSFERS: TUB: Activity did not occur on this shift TRANSFERS: TUB - SCORE: 0-UNK LOCOMOTION: WALK: Activity did not occur on this shift LOCOMOTION: WALK - SCORE: 0-UNK LOCOMOTION: WHEELCHAIR: Activity did not occur on this shift LOCOMOTION: WHEELCHAIR - SCORE: 0-UNK COMPREHENSION: COMPREHENSION: TYPE: Both COMPREHENSION - STEP 1: Does the patient require help to understand complex and abstract ideas (such as current events, finan bradley, discharge planning, medical issues, relationships, etc)? Yes. COMPREHENSION - STEP 2: Does the patient require help to understand questions or statements about basic needs or ideas (such as hunger, thirst, sleep, safety, daily schedule, room location, or discomfort) half or more of the t araceli? No. COMPREHENSION - STEP 3: How often does the patient need help to understand directions and conversation about basic needs? 10% - 24% of the time COMPREHENSION - SCORE: 4-MIN EXPRESSION EXPRESSION: TYPE: Both EXPRESSION - STEP 1: Does the patient require help expressing complex and abstract ideas (such as current events, finances , discharge planning, medical issues, relationships, etc)? No. EXPRESSION - STEP 2: Does the patient need extra time, require an assistive device (such as augmentive communication syste m or a communication board), OR does s/he have mild difficulty expressing complex and abstract ideas (including mild dysarthria or mild word-find problems)? Yes. EXPRESSION - SCORE: 6-NELLIE SOCIAL INTERACTION: SOCIAL INTERACTION - STEP 1: Does the patient require a helper to interact with others in social and therapeutic situations? No. SOCIAL INTERACTION - STEP 2: Does the patient need extra time in social situations, OR does s/he interact with staff, other patien ts, and family members ONLY in structured environments, OR does s/he require medication for social in teraction? Yes, patient needs extra time SOCIAL INTERACTION - SCORE: 6-NELLIE PROBLEM SOLVING: PROBLEM SOLVING - STEP 1: Does the patient need help to solve complex problems such as managing a checking account or confronti ng interpersonal problems? Yes. PROBLEM SOLVING - STEP 2: Does the patient solve basic routine problems half or more of the time? Yes. PROBLEM SOLVING - STEP 3: How often does the patient need help to solve basic routine problems? 10%-24% of the time PROBLEM SOLVING - SCORE: 4-MIN MEMORY: MEMORY - STEP 1: Does the patient need help to remember frequently encountered people, daily routines, and executing r equests? Yes. MEMORY - STEP 2: How often does the patient need help to remember frequently encountered people, daily routines, and e xecuting requests? 25% - 49% of the time MEMORY - SCORE: 3-MOD SIGNATURE PANEL: The following modified sections: Eating - Score, Grooming - Score, Dressing - Upper Body - Score, Jewel ssing - Lower Body - Score, Toileting - Score, Bladder Management - Score, Bowel Management - Score, Transfers: Bed, Chair, Wheelchair - Score, Transfers: Toilet - Score, Transfers: Shower - Score, Valdez sfers: Tub - Score, Locomotion: Walk - Score, Locomotion: Wheelchair - Score, Comprehension - Score, Expression - Score, Social Interaction - Score, Problem Solving - Score, Memory - Score were [electro nically] signed by Margarita Raza CNA on TueDec 06 2017 01:47:19 T-0500 (Central Daylight Time)
[2017-12-06] MEDS: LORAZEPAM 0.5 MG TABLET PO PRN ×2 (02:59→14:03)
[2017-12-06 04:09] LABS: Urine Appearance CLEAR; Urine Bilirubin NEGATIVE (NEG); Urine Blood NEGATIVE (NEG); Urine Color YELLOW; Urine Glucose NEGATIVE (NEG); Urine Protein NEGATIVE (NEG); Urine Urobilinogen 0.2 mg/dL (0.2-1.0); Urine pH 5.5 (5.0-7.0)
[2017-12-06 04:10] LABS: Urine Microscopic Reflex NO UMIC
[2017-12-06] MEDS: ARFORMOTEROL TARTRATE 15 MCG/2 ML VIAL.NEB NEB SCH ×2 (07:25→20:13)
[2017-12-06] MEDS: BUDESONIDE 0.25 MG/2 ML NEB NEB SCH (07:50)
[2017-12-06] MEDS: DILTIAZEM HCL 120 MG SR CAP PO SCH (08:00)
[2017-12-06] MEDS: LIDOCAINE 5% PATCH TOP SCH (08:00)
[2017-12-06] MEDS: METOPROLOL TAR 50 MG TAB PO SCH ×2 (08:00→16:06)
[2017-12-06] MEDS: PROMOD 30 ML DOSE PO SCH ×2 (08:00→20:00)
[2017-12-06] MEDS: PANTOPRAZOLE 40MG TABLET PO SCH ×2 (08:59→16:06)
[2017-12-06] MEDS: FE SULF/FA/VIT B COMP & C TAB PO SCH (09:00)
[2017-12-06] MEDS: predniSONE 10 MG TAB PO SCH (09:00)
[2017-12-06] MEDS: TOPIRAMATE 25 MG TAB PO SCH ×2 (09:00→20:37)
[2017-12-06] MEDS: FERROUS SULFATE 325 MG TAB PO SCH ×3 (09:00→20:37)
[2017-12-06] MEDS: GABAPENTIN 300 MG CAP PO SCH (09:00)
[2017-12-06] MEDS: FUROSEMIDE 20 MG TABLET PO SCH ×2 (09:00→16:06)
[2017-12-06] MEDS: PENTOXIFYLLINE ER 400 MG TAB PO SCH ×3 (09:00→16:06)
[2017-12-06] MEDS: MAGNESIUM OXIDE 400 MG TAB PO SCH ×2 (09:00→20:37)
[2017-12-06] MEDS: CRANBERRY FRUIT EXTRACT 200 MG CAP PO SCH ×2 (09:00→20:36)
[2017-12-06] MEDS: CARBIDOPA/LEVODOPA 25/100 TAB PO SCH ×2 (09:00→20:37)
[2017-12-06] MEDS: POTASSIUM CL SA 10 MEQ TAB PO SCH (09:00)
[2017-12-06] MEDS: SUCRALFATE 1 GM TABLET PO SCH ×4 (09:09→20:37)
[2017-12-06] MEDS: HYDROCODONE/APAP 5/325 MG TAB PO PRN ×2 (09:09→22:15)
[2017-12-06] MEDS: SUPLENA IMPAIRED RENAL 237 ML CAN PO SCH ×2 (09:11→20:42)
[2017-12-06 13:20] LABS: Absolute Lymphocytes (CBC) 0.5 K/uL (0.7-4.9); Absolute Monocytes 0.4 K/uL (0.1-1.3); Absolute Neutrophil 8.2 K/uL (1.8-8.0); Basophils % 0.3 % (0-1.3); Eosinophils % 0.1 % (0-4.4); Hematocrit 29.6 % (39.6-49.0); Lymphocytes % 5.7 % (15.3-44.8); MCH 23.4 pg (27.0-35.0); MCV 75.9 fL (80-100); Monocytes % 4.5 % (3.3-12.3); RBC Red Blood Cell Count 3.91 M/uL (4.33-5.43)
[2017-12-06 13:43] LABS: Albumin 3.3 g/dL (3.4-5.0); Bilirubin Total 0.4 mg/dL (0.2-1.0); Potassium 3.7 mmol/L (3.5-5.1); Protein, Total 6.8 g/dL (6.4-8.2)
--- NOTE | 2017-12-06 14:51 | FAST ---
SHIFT START DATE/TIME: 12/06/2017 07:00 (CDT) SHIFT END DATE/TIME: 12/06/2017 19:00 (CDT) NAME MYRA LE DATE OF : 1935 DATE OF ADMISSION: 11/22/2017 22:21 (CDT) PHONE: AGE: 82 N# [id number] GENDER: Male ENCOUNTER PHYSICIAN: Dr. Edilberto Colbert M.D. ADMISSION DIAGNOSIS: - Medically Complex Conditions 17 - Other Medically Complex Conditions (17.9) COLON ADENOCARCINOMA. Chronic Renal Disease. COPD. PVD. Parkinson's Disease. EATING: EATING - STEP 1: Does the patient require assistance when eating? Yes. EATING - STEP 2: Does the patient require the assistance of a helper? Yes. EATING - STEP 3: Does the patient perform half or more of the eating tasks? Yes. EATING - STEP 4: Does the patient need only supervision, cuing, coaxing OR help to apply an orthosis OR help to cut fo od, open containers, pour liquids, or butter bread? Yes. EATING - SCORE: 5-SUP GROOMING: Activity did not occur on this shift GROOMING - SCORE: 0-UNK BATHING: Activity did not occur on this shift BATHING - SCORE: 0-UNK DRESSING - UPPER BODY: Activity did not occur on this shift ARTICLES SCORE Total number of steps: 0 DRESSING - UPPER BODY - SCORE: 0-UNK DRESSING - LOWER BODY: Activity did not occur on this shift ARTICLES SCORE Total number of steps: 0 DRESSING - LOWER BODY - SCORE: 0-UNK TOILETING: TOILETING - STEP 1: Does the patient require assistance with toileting? Yes. TOILETING - STEP 2: Does the patient require the assistance of a helper? Yes. TOILETING - STEP 3: How much assistance does the patient require from the helper? Hands-on assistance from the helper TOILETING - STEP 4: Of the 3 tasks: 1) Adjusting clothing prior to use, 2) Cleansing of perineal area, 3) Adjusting clot flor after use; How many tasks does the patient perform WITHOUT assistance of the helper? Two tasks TOILETING - SCORE: 3-MOD BLADDER MANAGEMENT: BLADDER MANAGEMENT - STEP 1: Does the patient control the bladder completely and intentionally without equipment or devices or med ications, and is always continent? No. BLADDER MANAGEMENT - STEP 2: Does the patient require the assistance of a helper? No, patient requires and independently uses an a ssistive device, such as a urinal, bedpan, bedside commode, catheter, absorbent pad, or collecting de vice BLADDER MANAGEMENT - SCORE: 6-NELLIE BOWEL MANAGEMENT: Activity did not occur on this shift BOWEL MANAGEMENT - SCORE: 7-IND TRANSFERS: BED, CHAIR, WHEELCHAIR: TRANSFERS: BED, CHAIR, WHEELCHAIR - STEP 1: Does the patient require assistance with bed, chair, or wheelchair transfers? Yes. TRANSFERS: BED, CHAIR, WHEELCHAIR - STEP 2: Does the patient require the assistance of a helper? Yes. TRANSFERS: BED, CHAIR, WHEELCHAIR - STEP 3: How much assistance does the patient require from the helper? Lifting of the patient TRANSFERS: BED, CHAIR, WHEELCHAIR - STEP 4: Does the helper lift the patient ONLY up? ONLY down? Up AND Down? ONLY up. TRANSFERS: BED, CHAIR, WHEELCHAIR - SCORE: 3-MOD TRANSFERS: TOILET: TRANSFERS: TOILET - STEP 1: Does the patient require assistance with toilet transfers? Yes. TRANSFERS: TOILET - STEP 2: Does the patient require the assistance of a helper? Yes. TRANSFERS: TOILET - STEP 3: How much assistance does the patient require from the helper? Patient performs half or more of the tr ansferring tasks TRANSFERS: TOILET - STEP 4: Does the patient need only incidental help such as contact guard or steadying during toilet transfer? Yes. TRANSFERS: TOILET - SCORE: 4-MIN TRANSFERS: SHOWER: Activity did not occur on this shift TRANSFERS: SHOWER - SCORE: 0-UNK TRANSFERS: TUB: Activity did not occur on this shift TRANSFERS: TUB - SCORE: 0-UNK LOCOMOTION: WALK: Activity did not occur on this shift LOCOMOTION: WALK - SCORE: 0-UNK LOCOMOTION: WHEELCHAIR: Activity did not occur on this shift LOCOMOTION: WHEELCHAIR - SCORE: 0-UNK COMPREHENSION: COMPREHENSION: TYPE: Both COMPREHENSION - STEP 1: Does the patient require help to understand complex and abstract ideas (such as current events, finan bradley, discharge planning, medical issues, relationships, etc)? Yes. COMPREHENSION - STEP 2: Does the patient require help to understand questions or statements about basic needs or ideas (such as hunger, thirst, sleep, safety, daily schedule, room location, or discomfort) half or more of the t araceli? No. COMPREHENSION - STEP 3: How often does the patient need help to understand directions and conversation about basic needs? 25% - 49% of the time COMPREHENSION - SCORE: 3-MOD EXPRESSION EXPRESSION: TYPE: Both EXPRESSION - STEP 1: Does the patient require help expressing complex and abstract ideas (such as current events, finances , discharge planning, medical issues, relationships, etc)? Yes. EXPRESSION - STEP 2: Does the patient require help to express basic necessities or ideas (such as hunger, thirst, sleep, s afety, daily schedule, room location, or discomfort) half or more of the time? No. EXPRESSION - STEP 3: How often does the patient need help to express directions and conversation about basic needs? 25-49% of the time EXPRESSION - SCORE: 3-MOD SOCIAL INTERACTION: SOCIAL INTERACTION - STEP 1: Does the patient require a helper to interact with others in social and therapeutic situations? No. SOCIAL INTERACTION - STEP 2: Does the patient need extra time in social situations, OR does s/he interact with staff, other patien ts, and family members ONLY in structured environments, OR does s/he require medication for social in teraction? Yes, patient needs extra time SOCIAL INTERACTION - SCORE: 6-NELLIE PROBLEM SOLVING: PROBLEM SOLVING - STEP 1: Does the patient need help to solve complex problems such as managing a checking account or confronti ng interpersonal problems? Yes. PROBLEM SOLVING - STEP 2: Does the patient solve basic routine problems half or more of the time? Yes. PROBLEM SOLVING - STEP 3: How often does the patient need help to solve basic routine problems? 25%-49% of the time PROBLEM SOLVING - SCORE: 3-MOD MEMORY: MEMORY - STEP 1: Does the patient need help to remember frequently encountered people, daily routines, and executing r equests? Yes. MEMORY - STEP 2: How often does the patient need help to remember frequently encountered people, daily routines, and e xecuting requests? 25% - 49% of the time MEMORY - SCORE: 3-MOD SIGNATURE PANEL: The following modified sections: Eating - Score, Grooming - Score, Bathing - Score, Dressing - Upper Body - Score, Dressing - Lower Body - Score, Toileting - Score, Bladder Management - Score, Bowel Man agement - Score, Transfers: Bed, Chair, Wheelchair - Score, Transfers: Toilet - Score, Transfers: Lisa wer - Score, Transfers: Tub - Score, Locomotion: Walk - Score, Locomotion: Wheelchair - Score, Compre hension - Score, Expression - Score, Social Interaction - Score, Problem Solving - Score, Memory - Sc ore were [electronically] signed by Yossi Cotto on TueDec 06 2017 14:51:03 GMT-0500 (Central Daylight Time)
[2017-12-06] MEDS: RIVAROXABAN 15 MG TABLET PO SCH (16:07)
--- NOTE | 2017-12-06 16:39 | RAD REPORT ---
EXAM DESCRIPTION: Joset Single View12/06/2017 4:28 pm CLINICAL HISTORY: Cough COMPARISON: 12/04/2017 FINDINGS: Mild bilateral interstitial lung opacities are seen. The heart is mildly enlarged. IMPRESSION: Mild bilateral interstitial lung opacities probably are chronic. A mild superimposed in terstitial pulmonary edema may be present
--- NOTE | 2017-12-06 18:55 | R.PN ---
ENCOUNTER DATE AND TIME: 12/06/2017 18:46 (CDT) NAME MYRA JAQUEZ DATE OF : 1935 DATE OF ADMISSION: 11/22/2017 22:21 (CDT) COLON ADENOCARCINOMAChronic Renal DiseaseCOPDPVDParkinson's DiseaseSUBJECTIVE: Pt denied any Shortness of Breath. Pt denied any depression. Chest x-ray done 11-28-17 shows improvement versus 10-13-17. Mild tachycardia with normal blood pressure s. Afebrile with normal WBC 2 days ago. Ambulated total of 375' with standby assistance. Lactate and procalcitonin are normal. ADLs done with standby assistance to independence. Grooming was done with independence. Did other activities of daily living with standby assistance. Ambulated 210 feet x 3 with contact guard assistance using a rolling walker. VITAL SIGNS Temperature: 97.7 F SBP/DBP: 145/70 Pulse: 125 Resp: 16 Mr. Jaquez has atrial fibrillation and is on high dosage anti-coagulation. Will do an EKG. MEDICATION ALLERGIES: No Known Drug Allergies (NKDA) ENVIRONMENTAL ALLERGIES: None Known - Substance Allergies None Known - Other Allergies None Known NURSING: - Shower allowing shower PRECAUTIONS: - Fall Precaution Bed and chair alarm ACTIVITIES OOB only with supervision THERAPIES: - Occupational Therapy Evaluate and Treat. - Speech Therapy Memory Strategies. Speech Intelligibility Training. - Physical Therapy Evaluate and Treat. PHYSICAL EXAM - Gen Alert and awake Lying in bed No apparent distress Oriented to: person, time, and place - Skin No skin breakdown. No abnormalities - Eyes No abnormalities - ENMT No abnormalities - Neck No abnormalities - CVS RRR - Chest Clear - Abd Soft - GI Non distended Deferred - No abnormalities - Ext Mild bilateral lower extremity edema. - MSK 4+/5 weakness in both lower extremities. - Neuro No focal deficits - Psych No abnormalities ASSESSMENT: Pt. is a 82 yo Right-handed white male.On 11/10/2017 he was admitted to [facility] with diagnosis COLON ADENOCARCINOMA.His impairment category is Medically Complex Conditions 17 - Other Medically Complex Conditions (17.9).Pre-morbidly, Pt. was independent/mod-I in Social Cognitio n, Self-Care, Locomotion, Sphincter Control, Transfers Control, and Communication; and he had good Sp hincter Control.Currently, he has deficits of Balance, Locomotion, Endurance, Safety Awareness, Trans fers Control, and Self-Care.Pt. is now referred to [facility] for acute in-pat ient rehabilitation in order to maximize patient's functional independence in activities of daily maria luisa ing, strength, ROM, and mobility.- Rehab Goal Patient has realistic goal of being discharged at assistance level 6-Katheryn to reside at Home with Fam nahomy/Relatives. MDM/PLAN: - Physical Therapy Gait dysfunction - to improve, our physical therapists will perform initial evaluation of pt's statu s upon admission and devise an individualized program for Gait Training, and Wheel Chair mobility Inability to transfer - to improve, our physical therapists will perform initial evaluation of pt's status upon admission and devise an individualized program for Bed mobility Need for home safety evaluation - to improve, our physical therapists will perform initial evaluatio n of pt's status upon admission and devise an individualized program for Home Evaluation Need in caregiver upon discharge - to improve, our physical therapists will perform initial evaluati on of pt's status upon admission and devise an individualized program for Caregiver Training New precaution - to improve, our physical therapists will perform initial evaluation of pt's status upon admission and devise an individualized program for Patient precaution education Edema - to improve, our physical therapists will perform initial evaluation of pt's status upon admi ssion and devise an individualized program for Elevation Training, and Lymphedema Therapy Pain - to improve, our physical therapists will perform initial evaluation of pt's status upon admis garry and devise an individualized program for Modalities Poor balance - to improve, our physical therapists will perform initial evaluation of pt's status up on admission and devise an individualized program for Balance Training Poor endurance - to improve, our physical therapists will perform initial evaluation of pt's status upon admission and devise an individualized program for Endurance Training Weakness - to improve, our physical therapists will perform initial evaluation of pt's status upon a dmission and devise an individualized program for Aquatic Therapy, Neuromuscular Reeducation, and Str engthening Achieving independence - to improve, our physical therapists will perform initial evaluation of pt's status upon admission and devise an individualized program for Community Reintegration Activities - Occupational Therapy ADL deficits - to improve, our occupation therapists will perform initial evaluation of pt's status upon admission and devise an individualized program for Bathing, Bed mobility, Community Reintegratio n, Cooking, Dressing, Eating, Fine Motor Skills, Grooming, Homemaking, Kitchen Mobility, Laundry, Pat ient Education, Safety Awareness, Splinting - Positioning, Transfers(Toilet, Tub, Shower), and Wheel Chair Management Need for primary care nurse practitioner - to improve, our occupation therapists will perform initial evaluation of pt's status upon admission and devise an individualized program for Caregiver Training Weakness - to improve, our occupation therapists will perform initial evaluation of pt's status upon admission and devise an individualized program for Aquatic Therapy, Balance, Endurance, UE ROM, and UE strengthening - Diet Type Continue Low Fiber - Diet - Liquid Texture Continue Regular - Tube Feed Continue N/A - Fall Precaution Bed and chair alarm - Diet - Solid Texture Continue Regular Continue GI Soft - Shower allowing shower FUNCTIONAL STATUS: UPDATED AT WEEKLY TEAM CONFERENCE - Bladder Same accident frequency: 7-Ind - No accidents in the past 7 days - Bowel Same accident frequency: 7-Ind - No accidents in the past 7 days - Walking Same score based on distance walked: 1(<=50ft) - Wheelchair Same score based on distance traveled: 0(N/A) FUNCTIONAL STATUS: - Self-Care A. Eating Ind B. Grooming sup C. Bathing Magaly D. Dressing - Upper Magaly E. Dressing - Lower Magaly F. Toileting Magaly - Sphincter Control G: Bladder control Ind H: Bowel control Ind - Transfers Control I. Bed/Chair/Wheelchair modA J. Toilet modA K. Tub/Shower ADNO - Locomotion L. Walk/Wheelchair (B) modA M. Stairs ADNO - Communication N. Comprehension (B) Ind O. Expression (B) Ind - Social Cognition P. Social Interaction Ind Q. Problem Solving Ind R. Memory Ind - Endurance Fair - Balance Fair - Safety Awareness Fair CURRENT FUNC. DEFICITS: Balance, Locomotion, Endurance, Safety Awareness, Transfers Control, and Self-Care SIGNATURE PANEL: (CDT)
[2017-12-06] MEDS: GABAPENTIN 400 MG CAP PO SCH (20:37)
[2017-12-06] MEDS: DIPHENHYDRAMINE 25 MG TAB/CAP PO SCH (20:38)
[2017-12-06] MEDS: guaiFENesin 100 MG/5 ML UCUP PO PRN (22:38)
[2017-12-07] MEDS: ALBUTEROL 2.5 MG/3 ML NEB SOL NEB SCH ×2 (01:45→07:32)
[2017-12-07] MEDS: IPRATROPIUM BROM 0.5MG/2.5ML NEB SCH ×2 (01:46→07:30)
[2017-12-07] MEDS: ARFORMOTEROL TARTRATE 15 MCG/2 ML VIAL.NEB NEB SCH ×2 (07:28→20:40)
[2017-12-07] MEDS: BUDESONIDE 0.25 MG/2 ML NEB NEB SCH (07:31)
[2017-12-07] MEDS: SUPLENA IMPAIRED RENAL 237 ML CAN PO SCH ×2 (08:00→20:00)
[2017-12-07] MEDS: PROMOD 30 ML DOSE PO SCH ×2 (08:00→20:00)
[2017-12-07] MEDS: DILTIAZEM HCL 120 MG SR CAP PO SCH (08:00)
[2017-12-07] MEDS: CRANBERRY FRUIT EXTRACT 200 MG CAP PO SCH ×2 (09:07→21:18)
[2017-12-07] MEDS: LIDOCAINE 5% PATCH TOP SCH (09:07)
[2017-12-07] MEDS: PANTOPRAZOLE 40MG TABLET PO SCH ×2 (09:08→17:31)
[2017-12-07] MEDS: FERROUS SULFATE 325 MG TAB PO SCH ×3 (09:08→21:18)
[2017-12-07] MEDS: POTASSIUM CL SA 10 MEQ TAB PO SCH (09:08)
[2017-12-07] MEDS: GABAPENTIN 300 MG CAP PO SCH (09:08)
[2017-12-07] MEDS: FUROSEMIDE 20 MG TABLET PO SCH ×2 (09:09→17:31)
[2017-12-07] MEDS: FE SULF/FA/VIT B COMP & C TAB PO SCH (09:09)
[2017-12-07] MEDS: MAGNESIUM OXIDE 400 MG TAB PO SCH ×2 (09:09→21:18)
[2017-12-07] MEDS: PENTOXIFYLLINE ER 400 MG TAB PO SCH ×3 (09:09→17:32)
[2017-12-07] MEDS: TOPIRAMATE 25 MG TAB PO SCH ×2 (09:10→21:19)
[2017-12-07] MEDS: predniSONE 10 MG TAB PO SCH (09:10)
[2017-12-07] MEDS: CARBIDOPA/LEVODOPA 25/100 TAB PO SCH ×2 (09:10→21:18)
[2017-12-07] MEDS: SUCRALFATE 1 GM TABLET PO SCH ×4 (09:11→21:18)
[2017-12-07] MEDS: METOPROLOL TAR 50 MG TAB PO SCH ×2 (09:11→17:32)
[2017-12-07 10:16] LABS: Blood Gas Oxyhemoglobin 93.7 % (94-97)
[2017-12-07 10:26] LABS: Absolute Lymphocytes (CBC) 1.4 K/uL (0.7-4.9); Absolute Monocytes 0.9 K/uL (0.1-1.3); Absolute Neutrophil 7.5 K/uL (1.8-8.0); Basophils % 0.7 % (0-1.3); Eosinophils % 1.2 % (0-4.4); Hematocrit 31.6 % (39.6-49.0); Lymphocytes % 13.9 % (15.3-44.8); MCH 23.4 pg (27.0-35.0); MCV 75.4 fL (80-100); MPV 9.1 fL (7.6-11.3); Monocytes % 8.8 % (3.3-12.3)
[2017-12-07 10:30] LABS: Potassium 3.5 mmol/L (3.5-5.1)
[2017-12-07] MEDS: predniSONE 20 MG TAB PO SCH ×3 (11:33→21:19)
--- NOTE | 2017-12-07 11:42 | RAD REPORT ---
EXAM DESCRIPTION: RAD - Chest Single View - 12/07/2017 11:03 am CLINICAL HISTORY: Shortness of breath, suspected COPD COMPARISON: December 06, 2017, December 04, 2017 TECHNIQUE: AP portable chest image was obtained 1051 hours . FINDINGS: No new mass or consolidation. Lung markings remain prominent. Lower left lung field patter n is slightly worse when comparing back as far as December 04. Chronic disease can mask early inters titial edema or infiltrate. Heart and vasculature are normal. No measurable pleural effusion and no p neumothorax. No gross bony abnormality seen. No acute aortic findings suspected. IMPRESSION: No new mass or consolidation. Patient has baseline prominence of the lung markings. Markings are slightly worse in the left base an d patient can be monitored for developing lower left lung field pneumonia.
[2017-12-07] MEDS: TIOTROPIUM 5 SPRAYS/INHALER IH SCH (11:58)
--- NOTE | 2017-12-07 12:16 | EKG ---
Test Date: 2017-12-07 Test Time: 10:07:03 Geriatric Nurse: YESY MEASUREMENT RESULTS: Intervals: Rate: 106 IN: QRSD: 122 QT: 350 QTc: 464 [place]: P: IN: QRS: 101 T: 56 INTERPRETIVE STATEMENTS: Atrial fibrillation with rapid ventricular response Right bundle branch block Abnormal ECG Compared to ECG 11/11/2017 08:58:04 Ventricular premature complex(es) no longer present Electronically Signed On 12-07-17 12:15:32 CDT by Adi Velasco
--- NOTE | 2017-12-07 13:39 | P.PN ---
Subjective Date of Service: 12/07/17 Chief Complaint: Painful toenails Physical Examination - Vital Signs Temperature: 97.4 F Blood Pressure: 107/59 Pulse: 101 Respirations: 20 Pulse Ox (%): 97 - Studies Laboratory Data (last 24 hrs) 12/07/17 09:33: Sodium 141, Potassium 3.5, BUN 35 H, Creatinine 1.80 H, Glucose 158 H 12/07/17 09:33: WBC 9.9, Hgb 9.8 L, Hct 31.6 L, Plt Count 230 12/06/17 12:57: Sodium 141, Potassium 3.7, BUN 40 H, Creatinine 1.70 H, Glucose 142 H, Total Bilirubin 0.4, AST 19, ALT 22, Alkaline Phosphatase 66 Assessment & Plan Physician Review: Patient Assessed, Agree with Above Assessment and Plan
--- NOTE | 2017-12-07 13:45 | P.CNS ---
Date of Consult: 12/07/17 Reason for Consult: Shortness of breath Requesting Physician: Edilberto Colbert Primary Care Provider: Dr. Contreras Vela; Surgery-Dr. Abarca; Pulm-Dr. Starks Chief Complaint: Shortness of breath History of Present Illness: 82-year-old male currently in inpatient rehab after surgery for colon cancer. I was consulted due to increasing shortness of breath over the last several days. Patient with past medical history consistent of colon cancer status post hemicolectomy and fascial dehiscence status post closure, severe COPD, obstructive sleep apnea, chronic diastolic CHF, atrial fibrillation on chronic anti coagulation therapy, hypertension, chronic renal disease, anemia with history of iron deficiency, Parkinson's. Nurses report that the patient has been having increasing shortness of breath and cough. No fever noted. Patient currently on 2 L per nasal cannula. Medications reviewed. Most current blood pressure 120/60, heart rate around 113. Respiratory of 20. He is afebrile. Meds reviewed. Lab shows white count 9.9, pro calcitonin unremarkable. Hemoglobin 9.8. Sodium 141, potassium 3.5. BUN 38, creatinine 1.8 with a GFR 36. Urinalysis unremarkable. Chest x-ray showed no significant mass or consolidation. ABG showed a pH is 7.3 with a pCO2 of 51 and PO2 of 81. Allergies No Known Allergies Allergy (Verified 11/23/17 02:41) Home medications list reviewed: Yes Home Medications: Pentoxifylline 400 mg PO TIDWM 11/21/15 Losartan Potassium [Cozaar*] 50 mg PO [id number] 04/24/16 Topiramate 25 mg PO BID 06/17/17 Budesonide [Pulmicort*] 0.25 mg IH DAILY 07/15/17 Diltiazem HCl [Cartia Xt] 180 mg PO [id number] 07/15/17 Tiotropium [Spiriva Handihaler*] 1 sprays IH DAILY #1 inh 07/21/17 Albuterol Sulfate [Proair Respiclick] 2 puff IH QID 09/29/17 Metoprolol Tartrate 50 mg PO BIDWM 09/29/17 Rivaroxaban [Xarelto*] 15 mg PO DAILY 09/29/17 Diphenhydramine [Benadryl Tab/Cap] 25 mg PO BEDTIME 11/02/17 Polyethylene Glycol 3350 [Miralax] 17 gm PO PRN PRN 11/02/17 predniSONE [Deltasone] 10 mg PO DAILY 11/02/17 Carbidopa/Levodopa [Carbidopa-Levo 25-100 mg Odt] 1 tab PO BID 11/11/17 Ferrous Sulfate [Ferrous Sulfate*] 325 mg PO TID 11/11/17 Formoterol Fumarate 1 inhaler IH DAILY 11/11/17 Arformoterol Tartrate [Brovana] 15 mcg IH BIDRESP 11/23/17 Furosemide [Lasix] 40 mg PO DAILY 11/23/17 Pantoprazole Sodium [Protonix] 40 mg PO DAILY 11/23/17 - Past Medical/Surgical History Diabetic: No -: Parkinson -: COPD -: Atrial fibrillation on chronic anti coagulation -: HTN -: Hyperlipidemia -: Colon cancer status post surgery -: GERD -: CHF, diastolic dysfunction -: GERD -: Anemia of chronic disease -: Chronic renal disease -: right ing. 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 - Family History Father Medical History: Heart disease, Hypertension Mother Medical History: Heart disease, Hypertension Brother Medical History: Heart disease daughter Medical History: Cancer Notes: , throat lung mouth breast - Social History Smoking Status: Former smoker (quit 3 years ago) Alcohol use: No CD- Drugs: No Caffeine use: Yes Place of Residence: Home Review of Systems General: Weakness Eyes: Unremarkable Respiratory: Cough, Shortness of Breath, Wheezing, As per HPI Cardiovascular: Unremarkable Gastrointestinal: Unremarkable Genitourinary: Unremarkable Musculoskeletal: Unremarkable Integumentary: Unremarkable Neurological: Unremarkable Lymphatics: Unremarkable Physical Examination Temp Pulse Resp BP Pulse Ox 97.4 F 101 H 20 107/59 L 97 12/07/17 07:31 12/07/17 10:16 12/07/17 07:31 12/07/17 10:16 12/07/17 07:31 General: Alert, In no apparent distress, Oriented x3, Cooperative HEENT: Atraumatic Neck: Supple Respiratory: Expiratory wheezes (Bilateral) Cardiovascular: Irregular heart rate/rhythm (Atrial fibrillation rate around 110 ) Gastrointestinal: Normal bowel sounds, Soft and benign, Other (Postop changes. Binding in place.) Integumentary: No tenderness/swelling, No erythema, No warmth, No cyanosis Neurological: Normal speech, Normal strength at 5/5 x4 extr, Normal tone, Normal affect Laboratory Data (last 24 hrs) 12/07/17 09:33: Sodium 141, Potassium 3.5, BUN 35 H, Creatinine 1.80 H, Glucose 158 H 12/07/17 09:33: WBC 9.9, Hgb 9.8 L, Hct 31.6 L, Plt Count 230 12/06/17 12:57: Sodium 141, Potassium 3.7, BUN 40 H, Creatinine 1.70 H, Glucose 142 H, Total Bilirubin 0.4, AST 19, ALT 22, Alkaline Phosphatase 66 Conclusions/Impression: Impression: Dyspnea secondary COPD exacerbation with history of severe COPD on chronic oxygen and steroids Chronic diastolic CHF Chronic atrial fibrillation on chronic anti coagulation therapy Hypertension Hyperlipidemia Chronic renal disease Anemia of chronic disease History of colon cancer status post hemicolectomy with dehiscence post repair Parkinson Plan: Dyspnea secondary COPD exacerbation with history of severe COPD on chronic oxygen and steroids: Will increase his steroids. Will adjust COPD medication. Will maintain sats above 90%. ABG reviewed. Chest x-ray reviewed no consolidation or mass noted. Encouraged incentive spirometer. Will consult pulmonology to further evaluate. It appears the patient may be able to be treated on rehab floor. Will continue to reassess. Will discuss with Neurology. Chronic diastolic CHF: Stable. Continue with 1500 cc per day fluid restriction. No need for diuretic therapy at this time. Chronic atrial fibrillation on chronic anti coagulation therapy: Continue with anti coagulation therapy and medication for rate control. Hypertension: Continue with medication. Hyperlipidemia: Continue with medication Chronic renal disease: Continue to monitor closely. Anemia of chronic disease: Continue to monitor closely. History of colon cancer status post hemicolectomy with dehiscence post repair: Continue with therapy. Parkinson: Continue the medication. Patient will need to transition to skilled placement facility once improved. Time Spent Managing Pts care (In Minutes): 55
--- NOTE | 2017-12-07 15:47 | FAST ---
SHIFT START DATE/TIME: 12/07/2017 07:00 (CDT) SHIFT END DATE/TIME: 12/07/2017 19:00 (CDT) NAME MYRA LE DATE OF : 1935 DATE OF ADMISSION: 11/22/2017 22:21 (CDT) PHONE: AGE: 82 SSN# [id number] GENDER: Male ENCOUNTER PHYSICIAN: Dr. Edilberto Colbert M.D. ADMISSION DIAGNOSIS: - Medically Complex Conditions 17 - Other Medically Complex Conditions (17.9) COLON ADENOCARCINOMA. Chronic Renal Disease. COPD. PVD. Parkinson's Disease. EATING: EATING - STEP 1: Does the patient require assistance when eating? Yes. EATING - STEP 2: Does the patient require the assistance of a helper? Yes. EATING - STEP 3: Does the patient perform half or more of the eating tasks? Yes. EATING - STEP 4: Does the patient need only supervision, cuing, coaxing OR help to apply an orthosis OR help to cut fo od, open containers, pour liquids, or butter bread? Yes. EATING - SCORE: 5-SUP GROOMING: Activity did not occur on this shift GROOMING - SCORE: 0-UNK BATHING: Activity did not occur on this shift BATHING - SCORE: 0-UNK DRESSING - UPPER BODY: Activity did not occur on this shift ARTICLES SCORE Total number of steps: 0 DRESSING - UPPER BODY - SCORE: 0-UNK DRESSING - LOWER BODY: Elastic waist pants (three steps) ARTICLES SCORE Total number of steps: 3 DRESSING - LOWER BODY - STEP 1: Does the patient require help when dressing below the waist? Yes. DRESSING - LOWER BODY - STEP 2: Does the patient require the assistance of a helper? Yes. DRESSING - LOWER BODY - STEP 3: Does the helper touch the patient while dressing? Yes. DRESSING - LOWER BODY - STEP 4: How many of the total steps does the patient complete on his/her own? 0 DRESSING - LOWER BODY - STEP 5: Does patient require total assistance for dressing below the waist such as the helper holding clothin g and performing basically all the activities? Yes. DRESSING - LOWER BODY - SCORE: 1-DEP TOILETING: TOILETING - STEP 1: Does the patient require assistance with toileting? Yes. TOILETING - STEP 2: Does the patient require the assistance of a helper? Yes. TOILETING - STEP 3: How much assistance does the patient require from the helper? Hands-on assistance from the helper TOILETING - STEP 4: Of the 3 tasks: 1) Adjusting clothing prior to use, 2) Cleansing of perineal area, 3) Adjusting clot flor after use; How many tasks does the patient perform WITHOUT assistance of the helper? No tasks; h elper performs all three tasks TOILETING - SCORE: 1-DEP BLADDER MANAGEMENT: BLADDER MANAGEMENT - STEP 1: Does the patient control the bladder completely and intentionally without equipment or devices or med ications, and is always continent? No. BLADDER MANAGEMENT - STEP 2: Does the patient require the assistance of a helper? Yes. BLADDER MANAGEMENT - STEP 3: How much assistance does the patient require from the helper? Only supervision, stand-by, cuing, or c oaxing BLADDER MANAGEMENT - SCORE: 5-SUP BLADDER MANAGEMENT - FREQUENCY OF ACCIDENTS: BLADDER MANAGEMENT(FA) - STEP 1: How many accidents has the patient had during the current shift? 0 BOWEL MANAGEMENT: BOWEL MANAGEMENT - STEP 1: Does the patient control bowels completely and intentionally without equipment devices or medications AND is always continent? No. BOWEL MANAGEMENT - STEP 2: Does the patient require the assistance of a helper? Yes. BOWEL MANAGEMENT - STEP 3: How much assistance does the patient require from the helper? Patient requires supervision, stand by, cueing, coaxing, or setup of equipment - placing within reach of patient and emptying device / bedpa nd or BSC bucket - to maintain either satisfactory bowel pattern or managing an external device such as an absorbent pad, colostomy bag / ileostomy bag BOWEL MANAGEMENT - SCORE: 5-SUP BOWEL MANAGEMENT - FREQUENCY OF ACCIDENTS: BOWEL MANAGEMENT(FA) - STEP 1: How many accidents has the patient had during the current shift? 0 TRANSFERS: BED, CHAIR, WHEELCHAIR: TRANSFERS: BED, CHAIR, WHEELCHAIR - STEP 1: Does the patient require assistance with bed, chair, or wheelchair transfers? Yes. TRANSFERS: BED, CHAIR, WHEELCHAIR - STEP 2: Does the patient require the assistance of a helper? Yes. TRANSFERS: BED, CHAIR, WHEELCHAIR - STEP 3: How much assistance does the patient require from the helper? Steadying/guiding assistance TRANSFERS: BED, CHAIR, WHEELCHAIR - SCORE: 4-MIN TRANSFERS: TOILET: TRANSFERS: TOILET - STEP 1: Does the patient require assistance with toilet transfers? Yes. TRANSFERS: TOILET - STEP 2: Does the patient require the assistance of a helper? Yes. TRANSFERS: TOILET - STEP 3: How much assistance does the patient require from the helper? Patient performs half or more of the tr ansferring tasks TRANSFERS: TOILET - STEP 4: Does the patient need only incidental help such as contact guard or steadying during toilet transfer? Yes. TRANSFERS: TOILET - SCORE: 4-MIN TRANSFERS: SHOWER: Activity did not occur on this shift TRANSFERS: SHOWER - SCORE: 0-UNK TRANSFERS: TUB: Activity did not occur on this shift TRANSFERS: TUB - SCORE: 0-UNK LOCOMOTION: WALK: Activity did not occur on this shift LOCOMOTION: WALK - SCORE: 0-UNK LOCOMOTION: WHEELCHAIR: Activity did not occur on this shift LOCOMOTION: WHEELCHAIR - SCORE: 0-UNK COMPREHENSION: COMPREHENSION: TYPE: Both COMPREHENSION - STEP 1: Does the patient require help to understand complex and abstract ideas (such as current events, finan bradley, discharge planning, medical issues, relationships, etc)? Yes. COMPREHENSION - STEP 2: Does the patient require help to understand questions or statements about basic needs or ideas (such as hunger, thirst, sleep, safety, daily schedule, room location, or discomfort) half or more of the t araceli? No. COMPREHENSION - STEP 3: How often does the patient need help to understand directions and conversation about basic needs? Les s than 10% of the time COMPREHENSION - SCORE: 5-SUP EXPRESSION EXPRESSION: TYPE: Both EXPRESSION - STEP 1: Does the patient require help expressing complex and abstract ideas (such as current events, finances , discharge planning, medical issues, relationships, etc)? Yes. EXPRESSION - STEP 2: Does the patient require help to express basic necessities or ideas (such as hunger, thirst, sleep, s afety, daily schedule, room location, or discomfort) half or more of the time? No. EXPRESSION - STEP 3: How often does the patient need help to express directions and conversation about basic needs? Less t marie 10% of the time EXPRESSION - SCORE: 5-SUP SOCIAL INTERACTION: SOCIAL INTERACTION - STEP 1: Does the patient require a helper to interact with others in social and therapeutic situations? No. SOCIAL INTERACTION - STEP 2: Does the patient need extra time in social situations, OR does s/he interact with staff, other patien ts, and family members ONLY in structured environments, OR does s/he require medication for social in teraction? Yes, patient needs extra time SOCIAL INTERACTION - SCORE: 6-NELLIE PROBLEM SOLVING: PROBLEM SOLVING - STEP 1: Does the patient need help to solve complex problems such as managing a checking account or confronti ng interpersonal problems? Yes. PROBLEM SOLVING - STEP 2: Does the patient solve basic routine problems half or more of the time? Yes. PROBLEM SOLVING - STEP 3: How often does the patient need help to solve basic routine problems? Less than 10% of the time PROBLEM SOLVING - SCORE: 5-SUP MEMORY: MEMORY - STEP 1: Does the patient need help to remember frequently encountered people, daily routines, and executing r equests? Yes. MEMORY - STEP 2: How often does the patient need help to remember frequently encountered people, daily routines, and e xecuting requests? Less than 10% of the time MEMORY - SCORE: 5-SUP SIGNATURE PANEL: The following modified sections: Eating - Score, Grooming - Score, Bathing - Score, Dressing - Upper Body - Score, Dressing - Lower Body - Score, Toileting - Score, Bladder Management - Score, Bowel Man agement - Score, Transfers: Bed, Chair, Wheelchair - Score, Transfers: Toilet - Score, Transfers: Lisa wer - Score, Transfers: Tub - Score, Locomotion: Walk - Score, Locomotion: Wheelchair - Score, Compre hension - Score, Expression - Score, Social Interaction - Score, Problem Solving - Score, Memory - Sc ore were [electronically] signed by Sonia Ford C.N.A. on TueDec 07 2017 15:46:27 T-0500 (Centra l Daylight Time)
[2017-12-07] MEDS: RIVAROXABAN 15 MG TABLET PO SCH (17:32)
--- NOTE | 2017-12-07 18:06 | R.PN ---
ENCOUNTER DATE AND TIME: 12/07/2017 17:57 (CDT) NAME MYRA JAQUEZ DATE OF : 1935 DATE OF ADMISSION: 11/22/2017 22:21 (CDT) COLON ADENOCARCINOMAChronic Renal DiseaseCOPDPVDParkinson's DiseaseSUBJECTIVE: Pt denied any Shortness of Breath. Pt denied any depression. Chest x-ray done 11-28-17 shows improvement versus 10-13-17. Mild tachycardia with normal blood pressure s. Afebrile with normal WBC 2 days ago. Ambulated total of 375' with standby assistance. Lactate and procalcitonin are normal. ADLs done with standby assistance to independence. Grooming was done with independence. Did other activities of daily living with standby assistance. Ambulated 210 feet x 3 with contact guard assistance using a rolling walker. VITAL SIGNS Temperature: 97.7 F SBP/DBP: 131/76 Pulse: 101 Resp: 16 Mr. Jaquez has atrial fibrillation and is on high dosage anti-coagulation. EKG showed atrial fibril lation. He has increased confusion and shortness of breath. His chest x-ray showed developing pneumon ia. He also has possible COPD exacerbation. Repeat CBC showed normal WBCs and mildly low Hgb of 9.8. ABG showed normal pH of 7.39, mildly increased pCO2 of 51.2 and normal pO2 of 81.1. His creatinine is elevated to 1.8, glucose of 158. His lactic acid (1.4) and procalcitonin (0.12) are normal. The hosp italist and pulmonary service are helping with the patient. His therapy is on hold today. MEDICATION ALLERGIES: No Known Drug Allergies (NKDA) ENVIRONMENTAL ALLERGIES: None Known - Substance Allergies None Known - Other Allergies None Known NURSING: - Shower allowing shower PRECAUTIONS: - Fall Precaution Bed and chair alarm ACTIVITIES OOB only with supervision THERAPIES: - Occupational Therapy Evaluate and Treat. - Speech Therapy Memory Strategies. Speech Intelligibility Training. - Physical Therapy Evaluate and Treat. PHYSICAL EXAM - Gen Alert and awake Lying in bed No apparent distress Oriented to: person, time, and place - Skin No skin breakdown. No abnormalities - Eyes No abnormalities - ENMT No abnormalities - Neck No abnormalities - CVS RRR - Chest Clear - Abd Soft - GI Non distended Deferred - No abnormalities - Ext Mild bilateral lower extremity edema. - MSK 4+/5 weakness in both lower extremities. - Neuro No focal deficits - Psych No abnormalities ASSESSMENT: Pt. is a 82 yo Right-handed white male.On 11/10/2017 he was admitted to [facility] with diagnosis COLON ADENOCARCINOMA.His impairment category is Medically Complex Conditions 17 - Other Medically Complex Conditions (17.9).Pre-morbidly, Pt. was independent/mod-I in Social Cognitio n, Self-Care, Locomotion, Sphincter Control, Transfers Control, and Communication; and he had good Sp hincter Control.Currently, he has deficits of Balance, Locomotion, Endurance, Safety Awareness, Trans fers Control, and Self-Care.Pt. is now referred to [facility] for acute in-pat ient rehabilitation in order to maximize patient's functional independence in activities of daily maria luisa ing, strength, ROM, and mobility.- Rehab Goal Patient has realistic goal of being discharged at assistance level 6-Katheryn to reside at Home with Fam nahomy/Relatives. MDM/PLAN: - Physical Therapy Gait dysfunction - to improve, our physical therapists will perform initial evaluation of pt's statu s upon admission and devise an individualized program for Gait Training, and Wheel Chair mobility Inability to transfer - to improve, our physical therapists will perform initial evaluation of pt's status upon admission and devise an individualized program for Bed mobility Need for home safety evaluation - to improve, our physical therapists will perform initial evaluatio n of pt's status upon admission and devise an individualized program for Home Evaluation Need in caregiver upon discharge - to improve, our physical therapists will perform initial evaluati on of pt's status upon admission and devise an individualized program for Caregiver Training New precaution - to improve, our physical therapists will perform initial evaluation of pt's status upon admission and devise an individualized program for Patient precaution education Edema - to improve, our physical therapists will perform initial evaluation of pt's status upon admi ssion and devise an individualized program for Elevation Training, and Lymphedema Therapy Pain - to improve, our physical therapists will perform initial evaluation of pt's status upon admis garry and devise an individualized program for Modalities Poor balance - to improve, our physical therapists will perform initial evaluation of pt's status up on admission and devise an individualized program for Balance Training Poor endurance - to improve, our physical therapists will perform initial evaluation of pt's status upon admission and devise an individualized program for Endurance Training Weakness - to improve, our physical therapists will perform initial evaluation of pt's status upon a dmission and devise an individualized program for Aquatic Therapy, Neuromuscular Reeducation, and Str engthening Achieving independence - to improve, our physical therapists will perform initial evaluation of pt's status upon admission and devise an individualized program for Community Reintegration Activities - Occupational Therapy ADL deficits - to improve, our occupation therapists will perform initial evaluation of pt's status upon admission and devise an individualized program for Bathing, Bed mobility, Community Reintegratio n, Cooking, Dressing, Eating, Fine Motor Skills, Grooming, Homemaking, Kitchen Mobility, Laundry, Pat ient Education, Safety Awareness, Splinting - Positioning, Transfers(Toilet, Tub, Shower), and Wheel Chair Management Need for personal care aide - to improve, our occupation therapists will perform initial evaluation of pt's status upon admission and devise an individualized program for Caregiver Training Weakness - to improve, our occupation therapists will perform initial evaluation of pt's status upon admission and devise an individualized program for Aquatic Therapy, Balance, Endurance, UE ROM, and UE strengthening - Diet Type Continue Low Fiber - Diet - Liquid Texture Continue Regular - Tube Feed Continue N/A - Fall Precaution Bed and chair alarm - Diet - Solid Texture Continue Regular Continue GI Soft - Shower allowing shower FUNCTIONAL STATUS: UPDATED AT WEEKLY TEAM CONFERENCE - Bladder Same accident frequency: 7-Ind - No accidents in the past 7 days - Bowel Same accident frequency: 7-Ind - No accidents in the past 7 days - Walking Same score based on distance walked: 1(<=50ft) - Wheelchair Same score based on distance traveled: 0(N/A) FUNCTIONAL STATUS: - Self-Care A. Eating Ind B. Grooming sup C. Bathing Magaly D. Dressing - Upper Magaly E. Dressing - Lower Magaly F. Toileting Magaly - Sphincter Control G: Bladder control Ind H: Bowel control Ind - Transfers Control I. Bed/Chair/Wheelchair modA J. Toilet modA K. Tub/Shower ADNO - Locomotion L. Walk/Wheelchair (B) modA M. Stairs ADNO - Communication N. Comprehension (B) Ind O. Expression (B) Ind - Social Cognition P. Social Interaction Ind Q. Problem Solving Ind R. Memory Ind - Endurance Fair - Balance Fair - Safety Awareness Fair [facility] DEFICITS: Balance, Locomotion, Endurance, Safety Awareness, Transfers Control, and Self-Care SIGNATURE PANEL: (CDT)
[2017-12-07] MEDS: IPRATROPIUM BROM 0.5MG/2.5ML NEB PRN (20:40)
[2017-12-07] MEDS: DIPHENHYDRAMINE 25 MG TAB/CAP PO SCH (21:00)
[2017-12-07] MEDS: GABAPENTIN 400 MG CAP PO SCH (21:18)
[2017-12-07] MEDS: BENZONATATE 100 MG CAP PO PRN (21:18)
[2017-12-07] MEDS: LORAZEPAM 0.5 MG TABLET PO PRN (21:18)
[2017-12-08 06:42] LABS: Absolute Lymphocytes (CBC) 0.8 K/uL (0.7-4.9); Absolute Monocytes 0.4 K/uL (0.1-1.3); Basophils % 0.1 % (0-1.3); Hematocrit 32.8 % (39.6-49.0); Lymphocytes % 9.5 % (15.3-44.8); MCH 23.4 pg (27.0-35.0); MCV 75.1 fL (80-100); MPV 9.3 fL (7.6-11.3); Monocytes % 4.4 % (3.3-12.3); RBC Red Blood Cell Count 4.37 M/uL (4.33-5.43)
[2017-12-08] MEDS: PANTOPRAZOLE 40MG TABLET PO SCH ×2 (06:52→16:31)
[2017-12-08 07:08] LABS: Magnesium 2.5 mg/dL (1.8-2.4); Potassium 3.5 mmol/L (3.5-5.1)
[2017-12-08 07:16] LABS: Albumin 3.3 g/dL (3.4-5.0); Prealbumin 25.4 mg/dL (20-40)
[2017-12-08] MEDS: ARFORMOTEROL TARTRATE 15 MCG/2 ML VIAL.NEB NEB SCH ×2 (07:46→20:25)
[2017-12-08] MEDS: SUPLENA IMPAIRED RENAL 237 ML CAN PO SCH ×2 (08:00→19:36)
[2017-12-08] MEDS: PROMOD 30 ML DOSE PO SCH ×2 (08:00→19:36)
[2017-12-08] MEDS: LIDOCAINE 5% PATCH TOP SCH (08:53)
[2017-12-08] MEDS: GABAPENTIN 300 MG CAP PO SCH (08:53)
[2017-12-08] MEDS: MAGNESIUM OXIDE 400 MG TAB PO SCH ×2 (08:54→19:35)
[2017-12-08] MEDS: CRANBERRY FRUIT EXTRACT 200 MG CAP PO SCH ×2 (08:54→19:35)
[2017-12-08] MEDS: FE SULF/FA/VIT B COMP & C TAB PO SCH (08:54)
[2017-12-08] MEDS: DILTIAZEM HCL 120 MG SR CAP PO SCH (08:54)
[2017-12-08] MEDS: FUROSEMIDE 20 MG TABLET PO SCH ×2 (08:55→17:04)
[2017-12-08] MEDS: POTASSIUM CL SA 10 MEQ TAB PO SCH (08:55)
[2017-12-08] MEDS: FERROUS SULFATE 325 MG TAB PO SCH ×3 (08:55→20:53)
[2017-12-08] MEDS: SUCRALFATE 1 GM TABLET PO SCH ×4 (08:55→20:53)
[2017-12-08] MEDS: CARBIDOPA/LEVODOPA 25/100 TAB PO SCH ×2 (08:56→19:35)
[2017-12-08] MEDS: PENTOXIFYLLINE ER 400 MG TAB PO SCH ×3 (08:56→17:05)
[2017-12-08] MEDS: TOPIRAMATE 25 MG TAB PO SCH ×2 (08:57→19:35)
[2017-12-08] MEDS: predniSONE 20 MG TAB PO SCH ×2 (08:57→19:35)
[2017-12-08] MEDS: TIOTROPIUM 5 SPRAYS/INHALER IH SCH (08:58)
[2017-12-08] MEDS: METOPROLOL TAR 50 MG TAB PO SCH ×2 (11:27→17:04)
--- NOTE | 2017-12-08 11:29 | P.PN ---
Subjective Date of Service: 12/08/17 Primary Care Provider: Dr. Contreras Vela; Surgery-Dr. Abarca; Pulm-Dr. Starks Chief Complaint: Shortness of breath Subjective: Improving (Patient more alert today. Less short of breath today.) Physical Examination - Vital Signs Temperature: 97.2 F Blood Pressure: 136/75 Pulse: 113 Respirations: 16 Pulse Ox (%): 93 - Physical Exam General: Alert, In no apparent distress, Cooperative HEENT: Atraumatic Neck: Supple Respiratory: Expiratory wheezes (Less wheezing bilateral) Cardiovascular: Irregular heart rate/rhythm (Rate slightly increased) Gastrointestinal: No tenderness, No masses, No rebound, No guarding, Other ( Abdominal binder in place) Musculoskeletal: No erythema, No tenderness, No warmth Integumentary: No erythema, No warmth, No cyanosis Neurological: Normal speech, Normal strength at 5/5 x4 extr, Normal tone, Normal affect - Studies Laboratory Data (last 24 hrs) 12/08/17 05:59: Sodium 142, Potassium 3.5, BUN 40 H, Creatinine 1.60 H, Glucose 120 H, Magnesium 2.5 H D 12/08/17 05:59: WBC 8.1 D, Hgb 10.2 L, Hct 32.8 L, Plt Count 246 Medications List Reviewed: Yes Assessment & Plan Discharge Plan: Other (Skilled placement facility) Plan to discharge in: Greater than 2 days Physician Review Additional Text: Impression: Dyspnea secondary COPD exacerbation with history of severe COPD on chronic oxygen and steroids Chronic diastolic CHF Chronic atrial fibrillation on chronic anti coagulation therapy Hypertension Hyperlipidemia Chronic renal disease Anemia of chronic disease History of colon cancer status post hemicolectomy with dehiscence post repair Parkinson Plan: Dyspnea secondary COPD exacerbation with history of severe COPD on chronic oxygen and steroids: Patient much improved. Will decrease prednisone to 20 mg twice daily. Will continue with COPD medication. Will maintain sats above 90% . Will recheck chest x-ray again today. No need for antibiotics at this time. Case discussed with Neurology yesterday. Patient will continue with rehabilitation. It appears that the patient will likely need skilled facility placement. Patient will likely need long-term care after that. Await recommendations from pulmonology. Chronic diastolic CHF: Stable. Continue with 1500 cc per day fluid restriction. No need for diuretic therapy at this time. Chronic atrial fibrillation on chronic anti coagulation therapy: Continue with anti coagulation therapy and medication for rate control. Hypertension: Continue with medication. Hyperlipidemia: Continue with medication Chronic renal disease: Continue to monitor closely. Anemia of chronic disease: Continue to monitor closely. History of colon cancer status post hemicolectomy with dehiscence post repair: Continue with therapy. Parkinson: Continue the medication. Time Spent Managing Pts Care (In Minutes): 55
--- NOTE | 2017-12-08 12:10 | RAD REPORT ---
EXAM DESCRIPTION: RAD - Chest Single View - 12/08/2017 12:04 pm CLINICAL HISTORY: Follow up COPD, monitor for pneumonia Chest pain. COMPARISON: Chest Single View dated 12/07/2017; Chest Single View dated 12/06/2017; Chest Single View dated 12/04/2017; Chest Single View dated 11/28/2017 FINDINGS: Portable technique limits examination quality. Chronic prominence of pulmonary interstitial markings is again noted, unchanged. The heart is upper l imit normal in size. No displaced fractures. IMPRESSION: Stable chest since 12/07/2017.
[2017-12-08] MEDS: RIVAROXABAN 15 MG TABLET PO SCH (17:05)
--- NOTE | 2017-12-08 18:52 | R.PN ---
ENCOUNTER DATE AND TIME: 12/08/2017 18:45 (CDT) NAME MYRA JAQUEZ DATE OF : 1935 DATE OF ADMISSION: 11/22/2017 22:21 (CDT) COLON ADENOCARCINOMAChronic Renal DiseaseCOPDPVDParkinson's DiseaseSUBJECTIVE: Pt denied any Shortness of Breath. Pt denied any depression. Chest x-ray done 11-28-17 shows improvement versus 10-13-17. Mild tachycardia with normal blood pressure s. Afebrile with normal WBC 2 days ago. Ambulated total of 375' with standby assistance. Lactate and procalcitonin are normal. ADLs done with standby assistance to independence. Grooming was done with independence. Did other activities of daily living with standby assistance. Ambulated 210 feet x 3 with contact guard assistance using a rolling walker. VITAL SIGNS Temperature: 97.7 F SBP/DBP: 126/80 Pulse: 112 Resp: 16 Mr. Jaquez has atrial fibrillation and is on high dosage anti-coagulation. EKG showed atrial fibril lation. His confusion and shortness of breath have improved. His repeat chest x-ray showed no new fin dings. He is being treated for pneumonia and COPD exacerbation. Repeat CBC showed normal WBCs and mil dly low Hgb of 10.2. His creatinine is elevated to 1.6, glucose of 120. His lactic acid (1.4) and pro calcitonin (0.12) are normal. The hospitalist and pulmonary service are helping with the patient. His therapy is on hold today. Ambulated 460' using a rolling walker with contact guard assistance. MEDICATION ALLERGIES: No Known Drug Allergies (NKDA) ENVIRONMENTAL ALLERGIES: None Known - Substance Allergies None Known - Other Allergies None Known NURSING: - Shower allowing shower PRECAUTIONS: - Fall Precaution Bed and chair alarm ACTIVITIES OOB only with supervision THERAPIES: - Occupational Therapy Evaluate and Treat. - Speech Therapy Memory Strategies. Speech Intelligibility Training. - Physical Therapy Evaluate and Treat. PHYSICAL EXAM - Gen Alert and awake Lying in bed No apparent distress Oriented to: person, time, and place - Skin No skin breakdown. No abnormalities - Eyes No abnormalities - ENMT No abnormalities - Neck No abnormalities - CVS RRR - Chest Clear - Abd Soft - GI Non distended Deferred - No abnormalities - Ext Mild bilateral lower extremity edema. - MSK 4+/5 weakness in both lower extremities. - Neuro No focal deficits - Psych No abnormalities ASSESSMENT: Pt. is a 82 yo Right-handed white male.On 11/10/2017 he was admitted to [facility] with diagnosis COLON ADENOCARCINOMA.His impairment category is Medically Complex Conditions 17 - Other Medically Complex Conditions (17.9).Pre-morbidly, Pt. was independent/mod-I in Social Cognitio n, Self-Care, Locomotion, Sphincter Control, Transfers Control, and Communication; and he had good Sp hincter Control.Currently, he has deficits of Balance, Locomotion, Endurance, Safety Awareness, Trans fers Control, and Self-Care.Pt. is now referred to [facility] for acute in-pat ient rehabilitation in order to maximize patient's functional independence in activities of daily maria luisa ing, strength, ROM, and mobility.- Rehab Goal Patient has realistic goal of being discharged at assistance level 6-Katheryn to reside at Home with Fam nahomy/Relatives. MDM/PLAN: - Physical Therapy Gait dysfunction - to improve, our physical therapists will perform initial evaluation of pt's statu s upon admission and devise an individualized program for Gait Training, and Wheel Chair mobility Inability to transfer - to improve, our physical therapists will perform initial evaluation of pt's status upon admission and devise an individualized program for Bed mobility Need for home safety evaluation - to improve, our physical therapists will perform initial evaluatio n of pt's status upon admission and devise an individualized program for Home Evaluation Need in caregiver upon discharge - to improve, our physical therapists will perform initial evaluati on of pt's status upon admission and devise an individualized program for Caregiver Training New precaution - to improve, our physical therapists will perform initial evaluation of pt's status upon admission and devise an individualized program for Patient precaution education Edema - to improve, our physical therapists will perform initial evaluation of pt's status upon admi ssion and devise an individualized program for Elevation Training, and Lymphedema Therapy Pain - to improve, our physical therapists will perform initial evaluation of pt's status upon admis garry and devise an individualized program for Modalities Poor balance - to improve, our physical therapists will perform initial evaluation of pt's status up on admission and devise an individualized program for Balance Training Poor endurance - to improve, our physical therapists will perform initial evaluation of pt's status upon admission and devise an individualized program for Endurance Training Weakness - to improve, our physical therapists will perform initial evaluation of pt's status upon a dmission and devise an individualized program for Aquatic Therapy, Neuromuscular Reeducation, and Str engthening Achieving independence - to improve, our physical therapists will perform initial evaluation of pt's status upon admission and devise an individualized program for Community Reintegration Activities - Occupational Therapy ADL deficits - to improve, our occupation therapists will perform initial evaluation of pt's status upon admission and devise an individualized program for Bathing, Bed mobility, Community Reintegratio n, Cooking, Dressing, Eating, Fine Motor Skills, Grooming, Homemaking, Kitchen Mobility, Laundry, Pat ient Education, Safety Awareness, Splinting - Positioning, Transfers(Toilet, Tub, Shower), and Wheel Chair Management Need for insurance healthcare representative - to improve, our occupation therapists will perform initial evaluation of pt's status upon admission and devise an individualized program for Caregiver Training Weakness - to improve, our occupation therapists will perform initial evaluation of pt's status upon admission and devise an individualized program for Aquatic Therapy, Balance, Endurance, UE ROM, and UE strengthening - Diet Type Continue Low Fiber - Diet - Liquid Texture Continue Regular - Tube Feed Continue N/A - Fall Precaution Bed and chair alarm - Diet - Solid Texture Continue Regular Continue GI Soft - Shower allowing shower FUNCTIONAL STATUS: UPDATED AT WEEKLY TEAM CONFERENCE - Bladder Same accident frequency: 7-Ind - No accidents in the past 7 days - Bowel Same accident frequency: 7-Ind - No accidents in the past 7 days - Walking Same score based on distance walked: 1(<=50ft) - Wheelchair Same score based on distance traveled: 0(N/A) FUNCTIONAL STATUS: - Self-Care A. Eating Ind B. Grooming sup C. Bathing Magaly D. Dressing - Upper Magaly E. Dressing - Lower Magaly F. Toileting Magaly - Sphincter Control G: Bladder control Ind H: Bowel control Ind - Transfers Control I. Bed/Chair/Wheelchair modA J. Toilet modA K. Tub/Shower ADNO - Locomotion L. Walk/Wheelchair (B) modA M. Stairs ADNO - Communication N. Comprehension (B) Ind O. Expression (B) Ind - Social Cognition P. Social Interaction Ind Q. Problem Solving Ind R. Memory Ind - Endurance Fair - Balance Fair - Safety Awareness Fair [facility]IC[facility]: Balance, Locomotion, Endurance, Safety Awareness, Transfers Control, and Self-Care SIGNATURE PANEL: (CDT)
[2017-12-08] MEDS: BENZONATATE 100 MG CAP PO PRN (19:35)
[2017-12-08] MEDS: IPRATROPIUM BROM 0.5MG/2.5ML NEB PRN (20:37)
[2017-12-08] MEDS: GABAPENTIN 400 MG CAP PO SCH (20:52)
[2017-12-08] MEDS: DIPHENHYDRAMINE 25 MG TAB/CAP PO SCH (20:53)
[2017-12-09] MEDS: LORAZEPAM 0.5 MG TABLET PO PRN ×2 (00:02→21:48)
[2017-12-09] MEDS: TRAMADOL HCL 50 MG TAB PO PRN (04:13)
[2017-12-09] MEDS: ARFORMOTEROL TARTRATE 15 MCG/2 ML VIAL.NEB NEB SCH ×2 (07:35→18:05)
[2017-12-09] MEDS: TIOTROPIUM 5 SPRAYS/INHALER IH SCH (07:49)
[2017-12-09] MEDS: PROMOD 30 ML DOSE PO SCH ×2 (08:00→18:30)
[2017-12-09] MEDS: POTASSIUM CL SA 10 MEQ TAB PO SCH (08:26)
[2017-12-09] MEDS: LIDOCAINE 5% PATCH TOP SCH (08:26)
[2017-12-09] MEDS: FE SULF/FA/VIT B COMP & C TAB PO SCH (08:26)
[2017-12-09] MEDS: MAGNESIUM OXIDE 400 MG TAB PO SCH ×2 (08:27→18:59)
[2017-12-09] MEDS: FERROUS SULFATE 325 MG TAB PO SCH ×3 (08:27→21:00)
[2017-12-09] MEDS: CARBIDOPA/LEVODOPA 25/100 TAB PO SCH ×2 (08:27→19:01)
[2017-12-09] MEDS: GABAPENTIN 300 MG CAP PO SCH (08:27)
[2017-12-09] MEDS: predniSONE 20 MG TAB PO SCH ×2 (08:27→19:00)
[2017-12-09] MEDS: CRANBERRY FRUIT EXTRACT 200 MG CAP PO SCH ×2 (08:27→18:58)
[2017-12-09] MEDS: FUROSEMIDE 20 MG TABLET PO SCH ×2 (08:28→16:41)
[2017-12-09] MEDS: SUCRALFATE 1 GM TABLET PO SCH ×4 (08:28→21:47)
[2017-12-09] MEDS: TOPIRAMATE 25 MG TAB PO SCH ×2 (08:28→18:59)
[2017-12-09] MEDS: HYDROCODONE/APAP 5/325 MG TAB PO PRN ×2 (08:28→15:45)
[2017-12-09] MEDS: PENTOXIFYLLINE ER 400 MG TAB PO SCH ×3 (08:28→16:42)
[2017-12-09] MEDS: PANTOPRAZOLE 40MG TABLET PO SCH ×2 (08:28→15:45)
[2017-12-09] MEDS: METOPROLOL TAR 50 MG TAB PO SCH ×2 (08:29→16:42)
[2017-12-09] MEDS: SUPLENA IMPAIRED RENAL 237 ML CAN PO SCH ×2 (08:30→18:30)
[2017-12-09] MEDS: DILTIAZEM HCL 120 MG SR CAP PO SCH (08:30)
--- NOTE | 2017-12-09 08:59 | FAST ---
ENCOUNTER DATE AND TIME: 12/06/2017 08:00 (CDT) NAME MYRA LE DATE OF : 1935 DATE OF ADMISSION: 11/22/2017 22:21 (CDT) PHONE: AGE: 82 SSN# [id number] GENDER: Male ENCOUNTER PHYSICIAN: Dr. Edilberto Colbert M.D. ADMISSION DIAGNOSIS: - Medically Complex Conditions 17 - Other Medically Complex Conditions (17.9) COLON ADENOCARCINOMA. Chronic Renal Disease. COPD. PVD. Parkinson's Disease. EATING: Activity did not occur on this shift EATING - SCORE: 0-UNK GROOMING: Activity did not occur on this shift GROOMING - SCORE: 0-UNK BATHING: Activity did not occur on this shift BATHING - SCORE: 0-UNK DRESSING - UPPER BODY: Activity did not occur on this shift Patient is not dressing in public clothing ARTICLES SCORE Total number of steps: 0 DRESSING - UPPER BODY - SCORE: 0-UNK DRESSING - LOWER BODY: Activity did not occur on this shift Patient is not dressing in public clothing ARTICLES SCORE Total number of steps: 0 DRESSING - LOWER BODY - SCORE: 0-UNK TOILETING: Activity did not occur on this shift TOILETING - SCORE: 0-UNK BLADDER MANAGEMENT: Activity did not occur on this shift BLADDER MANAGEMENT - SCORE: 7-IND BOWEL MANAGEMENT: Activity did not occur on this shift BOWEL MANAGEMENT - SCORE: 7-IND TRANSFERS: BED, CHAIR, WHEELCHAIR: TRANSFERS: BED, CHAIR, WHEELCHAIR - STEP 1: Does the patient require assistance with bed, chair, or wheelchair transfers? Yes. TRANSFERS: BED, CHAIR, WHEELCHAIR - STEP 2: Does the patient require the assistance of a helper? Yes. TRANSFERS: BED, CHAIR, WHEELCHAIR - STEP 3: How much assistance does the patient require from the helper? Steadying/guiding assistance TRANSFERS: BED, CHAIR, WHEELCHAIR - SCORE: 4-MIN TRANSFERS: TOILET: Activity did not occur on this shift TRANSFERS: TOILET - SCORE: 0-UNK TRANSFERS: SHOWER: Activity did not occur on this shift TRANSFERS: SHOWER - SCORE: 0-UNK TRANSFERS: TUB: Activity did not occur on this shift TRANSFERS: TUB - SCORE: 0-UNK LOCOMOTION: WALK: LOCOMOTION: WALK - STEP 1: Does the patient need help to walk 150 feet? Yes. LOCOMOTION: WALK - STEP 2: How much assistance does the patient require to walk a minimum of 150 feet? Only incidental help such as contact guarding or steadying LOCOMOTION: WALK - SCORE: 4-MIN LOCOMOTION: WHEELCHAIR: Activity did not occur on this shift LOCOMOTION: WHEELCHAIR - SCORE: 0-UNK LOCOMOTION: STAIRS: Activity did not occur on this shift LOCOMOTION: STAIRS - SCORE: 0-UNK COMPREHENSION: COMPREHENSION - SCORE: 0-UNK EXPRESSION EXPRESSION - SCORE: 0-UNK SOCIAL INTERACTION: SOCIAL INTERACTION - SCORE: 0-UNK PROBLEM SOLVING: PROBLEM SOLVING - SCORE: 0-UNK MEMORY: MEMORY - SCORE: 0-UNK SIGNATURE PANEL: The following modified sections: Transfers: Bed, Chair, Wheelchair - Score, Transfers: Toilet - Score , Locomotion: Walk - Score, Locomotion: Wheelchair - Score, Locomotion: Stairs - Score were [electron jass] signed by Cr Mackey PTA on TueDec 09 2017 08:59:25 GMT-0500 (Central Daylight Time)
--- NOTE | 2017-12-09 10:12 | P.RH.PN ---
Estimated Length of Stay: 21 Expected Discharge Date: 12/12/17 Discharge Disposition Plan: Home Family Support: Yes Retirement Goal: Mobility, Transfers, Self Care Vital Signs: Last Vital Signs Temp 97.0 F 12/09/17 07:35 Pulse 109 H 12/09/17 08:30 Resp 18 12/09/17 07:35 BP 131/74 12/09/17 08:30 Pulse Ox 93 12/09/17 07:35 Laboratory: Laboratory Last Values WBC 8.1 K/uL (4.3-10.9) D 12/08/17 05:59 RBC 4.37 M/uL (4.33-5.43) 12/08/17 05:59 Hgb 10.2 g/dL (13.6-17.9) L 12/08/17 05:59 Hct 32.8 % (39.6-49.0) L 12/08/17 05:59 MCV 75.1 fL (80-100) L 12/08/17 05:59 MCH 23.4 pg (27.0-35.0) L 12/08/17 05:59 MCHC 31.1 g/dL (32.0-36.0) L 12/08/17 05:59 RDW 30.1 % (12.1-15.2) H 12/08/17 05:59 Plt Count 246 K/uL (152-406) 12/08/17 05:59 MPV 9.3 fL (7.6-11.3) 12/08/17 05:59 Neutrophils % 86.0 % (41.7-73.7) H 12/08/17 05:59 Lymphocytes % 9.5 % (15.3-44.8) L 12/08/17 05:59 Monocytes % 4.4 % (3.3-12.3) 12/08/17 05:59 Eosinophils % 0.0 % (0-4.4) 12/08/17 05:59 Basophils % 0.1 % (0-1.3) 12/08/17 05:59 Absolute Neutrophils 7.0 K/uL (1.8-8.0) 12/08/17 05:59 Absolute Lymphocytes 0.8 K/uL (0.7-4.9) 12/08/17 05:59 Absolute Monocytes 0.4 K/uL (0.1-1.3) 12/08/17 05:59 Absolute Eosinophils 0.0 K/uL (0-0.5) 12/08/17 05:59 Absolute Basophils 0.0 K/uL (0-0.5) 12/08/17 05:59 Giant Platelets Few 12/05/17 14:32 Hypochromasia 1+ 11/23/17 06:04 Poikilocytosis 3+ 12/05/17 14:32 Anisocytosis 3+ 12/05/17 14:32 Microcytosis 2+ 12/05/17 14:32 Macrocytosis 1+ 12/05/17 14:32 Ovalocytes 1+ 11/23/17 06:04 Elliptocytes 1+ 12/05/17 14:32 Morphology Comment Noted (NOT SEEN) 12/05/17 14:32 pH 7.39 (7.35-7.45) 12/07/17 09:55 pCO2 51.2 mmHG (35-45) H 12/07/17 09:55 pO2 81.1 mmHG (75-100) 12/07/17 09:55 HCO3 30.0 mmol/L (22-28) H 12/07/17 09:55 Base Excess 5.2 mmol/L 12/07/17 09:55 Oxyhemoglobin 93.7 % (94-97) L 12/07/17 09:55 ABG O2 Sat (Measured) 96.0 % (92-98.5) 12/07/17 09:55 ABG Carboxyhemoglobin 2.0 % (0-1.5) H 12/07/17 09:55 ABG Methemoglobin 0.4 % (0-1.5) 12/07/17 09:55 Other Total Hgb 9.3 g/dl (12-18) L 12/07/17 09:55 Inspired O2 28.0 % 12/07/17 09:55 Sodium 142 mmol/L (136-145) 12/08/17 05:59 Potassium 3.5 mmol/L (3.5-5.1) 12/08/17 05:59 Chloride 100 mmol/L (98-107) 12/08/17 05:59 Carbon Dioxide 34 mmol/L (21-32) H 12/08/17 05:59 BUN 40 mg/dL (7-18) H 12/08/17 05:59 Creatinine 1.60 mg/dL (0.55-1.3) H 12/08/17 05:59 Estimated GFR 42 mL/min (=/>90) L 12/08/17 05:59 Glucose 120 mg/dL (74-106) H 12/08/17 05:59 Lactic Acid 1.4 mmol/L (0.4-2.0) 12/06/17 12:57 Uric Acid 6.3 mg/dL (3.5-7.2) 12/03/17 06:09 Calcium 9.0 mg/dL (8.5-10.1) 12/08/17 05:59 Magnesium 2.5 mg/dL (1.8-2.4) H D 12/08/17 05:59 Total Bilirubin 0.4 mg/dL (0.2-1.0) 12/06/17 12:57 AST 19 U/L (15-37) 12/06/17 12:57 ALT 22 U/L (12-78) 12/06/17 12:57 Alkaline Phosphatase 66 U/L (45-117) 12/06/17 12:57 Lactate Dehydrogenase 187 U/L (87-241) 12/07/17 09:33 Serum Total Protein 6.8 g/dL (6.4-8.2) 12/06/17 12:57 Albumin 3.3 g/dL (3.4-5.0) L 12/08/17 05:59 Globulin 3.5 g/dL (2.3-3.5) 12/06/17 12:57 Albumin/Globulin Ratio 0.9 (1.1-1.8) L 12/06/17 12:57 Prealbumin 25.4 mg/dL (20-40) 12/08/17 05:59 Procalcitonin 0.12 ng/mL (<0.50) 12/07/17 09:33 Urine Color Yellow 12/06/17 03:00 Urine Appearance Clear 12/06/17 03:00 Urine pH 5.5 (5.0-7.0) 12/06/17 03:00 Ur Specific [place] 1.020 (1.005-1.030) 12/06/17 03:00 Urine Ketones Negative (NEG) 12/06/17 03:00 Urine Blood Negative (NEG) 12/06/17 03:00 Urine Nitrite Negative (NEG) 12/06/17 03:00 Urine Bilirubin Negative (NEG) 12/06/17 03:00 Urine Urobilinogen 0.2 mg/dL (0.2-1.0) 12/06/17 03:00 Ur Leukocyte Esterase Negative (NEG) 12/06/17 03:00 Urine RBC None seen /HPF (NONE SEEN) 11/24/17 00:11 Urine WBC <5 /HPF (<5) 11/24/17 00:11 Ur Squamous Epith Cells <5 /HPF (NONE SEEN) 11/24/17 00:11 Urine Bacteria <20 /HPF (NONE SEEN) 11/24/17 00:11 Hyaline Casts 0-5 /LPF (NONE SEEN) 11/24/17 00:11 Urine Culture Reflexed Not needed 11/24/17 00:11 Urine Glucose Negative (NEG) 12/06/17 03:00 Urine Total Protein Negative (NEG) 12/06/17 03:00 Weight: 140 lb 9 oz Wound Present: No Closed Surgical Incision Present: Yes Negative Pressure Wound Therapy Present: No Physician Update: He is better with therapy today. In the evening he has sun downing. Will put his breathing treatment at 6:30 pm and his evening pills at 8 pm. He is making fair overall progress with physical and occupational therapy. He will go to [facility] on Tuesday. He will have a bed side swallow evaluation today to determine the need for a modified barium study. Pain Issues: [place] 0.5 tab Q6H PO. Tramadol 50mg Q6H PO. Lidoderm 5% patch Daily Functional Improvement: Pt. met all short term goals at this time. Pt has recently developed pneumonia, further assessment will be needed. Functional Improvement Occupational Therapy: PATIENT MET ALL STG, HOWEVER, CONTINUES TO REQUIRE CGA AND SBA FOR SAFETY. Summary: Patient's care plan and long term care administrator goals have been reviewed and revised as necessary. Please see the Rehabilitation Signature page for all necessary signatures.
--- NOTE | 2017-12-09 13:30 | FAST ---
ENCOUNTER DATE AND TIME: 12/09/2017 08:00 (CDT) NAME MYRA LE DATE OF : 1935 DATE OF ADMISSION: 11/22/2017 22:21 (CDT) PHONE: AGE: 82 SSN# [id number] GENDER: Male ENCOUNTER PHYSICIAN: Dr. Edilberto Colbert M.D. ADMISSION DIAGNOSIS: - Medically Complex Conditions 17 - Other Medically Complex Conditions (17.9) COLON ADENOCARCINOMA. Chronic Renal Disease. COPD. PVD. Parkinson's Disease. EATING: Activity did not occur on this shift EATING - SCORE: 0-UNK GROOMING: Comb/brush hair Wash, rinse, and dry face Wash, rinse, and dry hands GROOMING - STEP 1: Does the patient require assistance when grooming? No. GROOMING - SCORE: 7-IND BATHING: Abdomen Buttocks Chest Left arm Left lower leg and foot Left upper leg Perineal area Right arm Right lower leg and foot Right upper leg BATHING - STEP 1: Does the patient require assistance when bathing? Yes. BATHING - STEP 2: Does the patient require the assistance of a helper? Yes. BATHING - STEP 3: How much assistance does the patient require from the helper? Only incidental help such as placement of a wash cloth in his/her hand a few times as s/he bathes OR help to bathe just one or two areas of the body BATHING - SCORE: 4-MIN DRESSING - UPPER BODY: T-shirt/pullover shirt (four steps) ARTICLES SCORE Total number of steps: 4 DRESSING - UPPER BODY - STEP 1: Does the patient require help when dressing above the waist? Yes. DRESSING - UPPER BODY - STEP 2: Does the patient require the assistance of a helper? Yes. DRESSING - UPPER BODY - STEP 3: Does the helper touch the patient while dressing? No. DRESSING - UPPER BODY - SCORE: 5-SUP DRESSING - LOWER BODY: Elastic waist pants (three steps) ARTICLES SCORE Total number of steps: 3 DRESSING - LOWER BODY - STEP 1: Does the patient require help when dressing below the waist? Yes. DRESSING - LOWER BODY - STEP 2: Does the patient require the assistance of a helper? Yes. DRESSING - LOWER BODY - STEP 3: Does the helper touch the patient while dressing? Yes. DRESSING - LOWER BODY - STEP 4: How many of the total steps does the patient complete on his/her own? 3 DRESSING - LOWER BODY - SCORE: 4-MIN TOILETING: TOILETING - STEP 1: Does the patient require assistance with toileting? Yes. TOILETING - STEP 2: Does the patient require the assistance of a helper? Yes. TOILETING - STEP 3: How much assistance does the patient require from the helper? Hands-on assistance from the helper TOILETING - STEP 4: Of the 3 tasks: 1) Adjusting clothing prior to use, 2) Cleansing of perineal area, 3) Adjusting clot flor after use; How many tasks does the patient perform WITHOUT assistance of the helper? Three tasks with steadying assistance from the helper TOILETING - SCORE: 4-MIN BLADDER MANAGEMENT: Activity did not occur on this shift BLADDER MANAGEMENT - SCORE: 7-IND BOWEL MANAGEMENT: Activity did not occur on this shift BOWEL MANAGEMENT - SCORE: 7-IND TRANSFERS: BED, CHAIR, WHEELCHAIR: Activity did not occur on this shift TRANSFERS: BED, CHAIR, WHEELCHAIR - SCORE: 0-UNK TRANSFERS: TOILET: TRANSFERS: TOILET - STEP 1: Does the patient require assistance with toilet transfers? Yes. TRANSFERS: TOILET - STEP 2: Does the patient require the assistance of a helper? Yes. TRANSFERS: TOILET - STEP 3: How much assistance does the patient require from the helper? Patient performs half or more of the tr ansferring tasks TRANSFERS: TOILET - STEP 4: Does the patient need only incidental help such as contact guard or steadying during toilet transfer? Yes. TRANSFERS: TOILET - SCORE: 4-MIN TRANSFERS: SHOWER: TRANSFERS: SHOWER - STEP 1: Does the patient require assistance with shower transfers? Yes. TRANSFERS: SHOWER - STEP 2: Does the patient require the assistance of a helper? Yes. TRANSFERS: SHOWER - STEP 3: How much assistance does the patient require from the helper? Only incidental help such as contact gu arding or steadying during shower transfers, or help to lift one leg into the shower TRANSFERS: SHOWER - SCORE: 4-MIN TRANSFERS: TUB: Activity did not occur on this shift TRANSFERS: TUB - SCORE: 0-UNK LOCOMOTION: WALK: Activity did not occur on this shift LOCOMOTION: WALK - SCORE: 0-UNK LOCOMOTION: WHEELCHAIR: Activity did not occur on this shift LOCOMOTION: WHEELCHAIR - SCORE: 0-UNK LOCOMOTION: STAIRS: Activity did not occur on this shift LOCOMOTION: STAIRS - SCORE: 0-UNK COMPREHENSION: COMPREHENSION: TYPE: Both COMPREHENSION - STEP 1: Does the patient require help to understand complex and abstract ideas (such as current events, finan bradley, discharge planning, medical issues, relationships, etc)? Yes. COMPREHENSION - STEP 2: Does the patient require help to understand questions or statements about basic needs or ideas (such as hunger, thirst, sleep, safety, daily schedule, room location, or discomfort) half or more of the t araceli? No. COMPREHENSION - STEP 3: How often does the patient need help to understand directions and conversation about basic needs? 25% - 49% of the time COMPREHENSION - SCORE: 3-MOD EXPRESSION EXPRESSION: TYPE: Both EXPRESSION - STEP 1: Does the patient require help expressing complex and abstract ideas (such as current events, finances , discharge planning, medical issues, relationships, etc)? Yes. EXPRESSION - STEP 2: Does the patient require help to express basic necessities or ideas (such as hunger, thirst, sleep, s afety, daily schedule, room location, or discomfort) half or more of the time? No. EXPRESSION - STEP 3: How often does the patient need help to express directions and conversation about basic needs? 10-24% of the time EXPRESSION - SCORE: 4-MIN SOCIAL INTERACTION: SOCIAL INTERACTION - STEP 1: Does the patient require a helper to interact with others in social and therapeutic situations? Yes. SOCIAL INTERACTION - STEP 2: Does the patient interact appropriately half or more of the time? Yes. SOCIAL INTERACTION - STEP 3: How often does the patient need help to interact appropriately? 10-24% of the time SOCIAL INTERACTION - SCORE: 4-MIN PROBLEM SOLVING: PROBLEM SOLVING - STEP 1: Does the patient need help to solve complex problems such as managing a checking account or confronti ng interpersonal problems? Yes. PROBLEM SOLVING - STEP 2: Does the patient solve basic routine problems half or more of the time? Yes. PROBLEM SOLVING - STEP 3: How often does the patient need help to solve basic routine problems? 25%-49% of the time PROBLEM SOLVING - SCORE: 3-MOD MEMORY: MEMORY - STEP 1: Does the patient need help to remember frequently encountered people, daily routines, and executing r equests? Yes. MEMORY - STEP 2: How often does the patient need help to remember frequently encountered people, daily routines, and e xecuting requests? 25% - 49% of the time MEMORY - SCORE: 3-MOD SIGNATURE PANEL: The following modified sections: Eating - Score, Grooming - Score, Bathing - Score, Dressing - Upper Body - Score, Dressing - Lower Body - Score, Toileting - Score, Transfers: Bed, Chair, Wheelchair - S core, Transfers: Toilet - Score, Transfers: Shower - Score, Transfers: Tub - Score, Comprehension - S core, Expression - Score, Social Interaction - Score, Problem Solving - Score, Memory - Score were [e lectronically] signed by Chantelle Denny OT on TueDec 09 2017 13:29:26 T-0500 ([place] Da ylight Time)
--- NOTE | 2017-12-09 15:56 | RAD REPORT ---
EXAM DESCRIPTION: RAD - Barium Swallow Modified - 12/09/2017 3:40 pm CLINICAL HISTORY: Dysphagia COMPARISON: Abdomen Pelvis Wo Contrast dated 11/15/2017 TECHNIQUE: The patient was given liquid, semi-solid and solid forms of barium. Lateral view fluorosc opic imaging was performed in conjunction with speech pathology service. FINDINGS: Laryngeal penetration not cleared tsp of thin Aspiration delayed w/ cup of sip of thin Pharyngeal residue on vallecular, pyriform Pureed bolus passed into the lower esophagus without any incident Total fluoroscopy time: 4 minutes and 45 seconds.
[2017-12-09] MEDS: RIVAROXABAN 15 MG TABLET PO SCH (16:46)
[2017-12-09] MEDS: DIPHENHYDRAMINE 25 MG TAB/CAP PO SCH (19:00)
[2017-12-09] MEDS: GABAPENTIN 400 MG CAP PO SCH (19:00)
--- NOTE | 2017-12-09 19:13 | P.PN ---
Subjective Date of Service: 12/09/17 Primary Care Provider: Dr. Contreras Vela; Surgery-Dr. Abarca; Pulm-Dr. 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 he is ambulating prednisone was increased recently patient has terminal COPD Review of Systems is unable to be obtained Physical Examination - Vital Signs Temperature: 97.0 F Blood Pressure: 126/65 Pulse: 107 Respirations: 18 Pulse Ox (%): 93 - Physical Exam General: Alert, Cooperative Respiratory: Expiratory wheezes Cardiovascular: No edema, Normal S1 S2 - Studies Microbiology Data (last 24 hrs): 12/07/17 06:45 Sputum Gram Stain - Final 12/07/17 06:45 Sputum Culture & Sensitivity - Final Medications List Reviewed: Yes Assessment & Plan - Problems (Diagnosis) (1) COPD (chronic obstructive pulmonary disease) Onset Date: 04/28/16 Current Visit: No Status: Acute Plan: Patient is 82 years of age has terminal COPD vital signs are stable oxygenation is stable on 2 L chronic renal insufficiency formal white count patient is anti coagulated reduce 0 dose of prednisone to 10 mg twice a day continue with bur 1 and Spiriva patient failed his modified barium swallow no evidence of pneumonia Qualifiers: COPD type: COPD with acute exacerbation Qualified Code(s): J44.1 - Chronic obstructive pulmonary disease with (acute) exacerbation Physician Review: Patient Assessed, Agree with Above Assessment and Plan Physician Review Additional Text: Impression: Dyspnea secondary COPD exacerbation with history of severe COPD on chronic oxygen and steroids Chronic diastolic CHF Chronic atrial fibrillation on chronic anti coagulation therapy Hypertension Hyperlipidemia Chronic renal disease Anemia of chronic disease History of colon cancer status post hemicolectomy with dehiscence post repair Parkinson Plan: Dyspnea secondary COPD exacerbation with history of severe COPD on chronic oxygen and steroids: Patient much improved. Will decrease prednisone to 20 mg twice daily. Will continue with COPD medication. Will maintain sats above 90% . Will recheck chest x-ray again today. No need for antibiotics at this time. Case discussed with Neurology yesterday. Patient will continue with rehabilitation. It appears that the patient will likely need skilled facility placement. Patient will likely need long-term care after that. Await recommendations from pulmonology. Chronic diastolic CHF: Stable. Continue with 1500 cc per day fluid restriction. No need for diuretic therapy at this time. Chronic atrial fibrillation on chronic anti coagulation therapy: Continue with anti coagulation therapy and medication for rate control. Hypertension: Continue with medication. Hyperlipidemia: Continue with medication Chronic renal disease: Continue to monitor closely. Anemia of chronic disease: Continue to monitor closely. History of colon cancer status post hemicolectomy with dehiscence post repair: Continue with therapy. Parkinson: Continue the medication.
[2017-12-10] MEDS: IPRATROPIUM BROM 0.5MG/2.5ML NEB PRN (04:46)
[2017-12-10] MEDS: ALBUTEROL 2.5 MG/3 ML NEB SOL NEB PRN (04:46)
[2017-12-10] MEDS: guaiFENesin 100 MG/5 ML UCUP PO PRN ×2 (05:04→10:49)
[2017-12-10] MEDS: TIOTROPIUM 5 SPRAYS/INHALER IH SCH (07:02)
[2017-12-10] MEDS: ARFORMOTEROL TARTRATE 15 MCG/2 ML VIAL.NEB NEB SCH ×2 (07:39→17:55)
[2017-12-10] MEDS: DILTIAZEM HCL 120 MG SR CAP PO SCH (08:00)
[2017-12-10] MEDS: PROMOD 30 ML DOSE PO SCH ×2 (08:00→18:59)
[2017-12-10] MEDS: METOPROLOL TAR 50 MG TAB PO SCH ×2 (08:00→16:02)
[2017-12-10] MEDS: PANTOPRAZOLE 40MG TABLET PO SCH ×2 (08:30→16:00)
[2017-12-10] MEDS: LIDOCAINE 5% PATCH TOP SCH (08:34)
[2017-12-10] MEDS: FUROSEMIDE 20 MG TABLET PO SCH ×2 (08:35→16:01)
[2017-12-10] MEDS: GABAPENTIN 300 MG CAP PO SCH (08:35)
[2017-12-10] MEDS: MAGNESIUM OXIDE 400 MG TAB PO SCH ×2 (08:35→18:57)
[2017-12-10] MEDS: predniSONE 20 MG TAB PO SCH ×2 (08:35→18:56)
[2017-12-10] MEDS: FERROUS SULFATE 325 MG TAB PO SCH ×3 (08:35→20:27)
[2017-12-10] MEDS: CRANBERRY FRUIT EXTRACT 200 MG CAP PO SCH ×2 (08:35→18:56)
[2017-12-10] MEDS: FE SULF/FA/VIT B COMP & C TAB PO SCH (08:36)
[2017-12-10] MEDS: SUCRALFATE 1 GM TABLET PO SCH ×4 (08:36→20:27)
[2017-12-10] MEDS: POTASSIUM CL SA 10 MEQ TAB PO SCH (08:37)
[2017-12-10] MEDS: CARBIDOPA/LEVODOPA 25/100 TAB PO SCH ×2 (08:37→18:57)
[2017-12-10] MEDS: TOPIRAMATE 25 MG TAB PO SCH ×2 (08:37→18:57)
[2017-12-10] MEDS: PENTOXIFYLLINE ER 400 MG TAB PO SCH ×3 (08:37→16:02)
[2017-12-10] MEDS: SUPLENA IMPAIRED RENAL 237 ML CAN PO SCH ×2 (08:37→18:59)
[2017-12-10] MEDS: HYDROCODONE/APAP 5/325 MG TAB PO PRN ×2 (08:38→14:04)
--- NOTE | 2017-12-10 10:04 | P.PN ---
Subjective Date of Service: 12/10/17 Primary Care Provider: Dr. Contreras Vela; Surgery-Dr. Abarca; Pulm-Dr. Starks Chief Complaint: COPD Subjective: Doing well Physical Examination - Vital Signs Temperature: 96.9 F Blood Pressure: 117/89 Pulse: 116 Respirations: 20 Pulse Ox (%): 93 - Physical Exam General: Alert, In no apparent distress, Cooperative HEENT: Atraumatic Neck: Supple Respiratory: Expiratory wheezes Cardiovascular: Irregular heart rate/rhythm (Atrial fibrillation rate slightly elevated) Gastrointestinal: Normal bowel sounds, Soft and benign, Non-distended, No tenderness, No masses, No rebound, No guarding Musculoskeletal: No erythema, No tenderness, No warmth Integumentary: No tenderness/swelling, No erythema, No warmth, No cyanosis Neurological: Normal speech, Normal strength at 5/5 x4 extr, Normal tone, Normal affect - Studies Microbiology Data (last 24 hrs): 12/07/17 06:45 Sputum Gram Stain - Final 12/07/17 06:45 Sputum Culture & Sensitivity - Final Medications List Reviewed: Yes Assessment & Plan Discharge Plan: Other (Skilled placement facility) Plan to discharge in: Greater than 2 days Physician Review Additional Text: Impression: Dyspnea secondary COPD exacerbation with history of severe COPD on chronic oxygen and steroids Chronic diastolic CHF Chronic atrial fibrillation on chronic anti coagulation therapy Hypertension Hyperlipidemia Chronic renal disease Anemia of chronic disease History of colon cancer status post hemicolectomy with dehiscence post repair Parkinson Dysphagia, risk for aspiration Plan: Dyspnea secondary COPD exacerbation with history of severe COPD on chronic oxygen and steroids: Patient much improved. Will decrease prednisone to 10 mg 1 pill twice daily. Will continue with COPD medication. Will maintain sats above 90%. Overall improved. No antibiotics needed at this time. Case discussed at length with Neurology. Neurology plans to send the patient to a skilled facility after rehab. Case also reviewed by pulmonology. Patient has severe COPD and will need close follow up with pulmonology. Chronic diastolic CHF: Stable. Continue with 1500 cc per day fluid restriction. No need for diuretic therapy at this time. Chronic atrial fibrillation on chronic anti coagulation therapy: Continue with anti coagulation therapy and medication for rate control. Hypertension: Continue with medication. Hyperlipidemia: Continue with medication Chronic renal disease: Continue to monitor closely. Anemia of chronic disease: Continue to monitor closely. History of colon cancer status post hemicolectomy with dehiscence post repair: Continue with therapy. Parkinson: Continue the medication. Dysphagia, risk for aspiration: Modified barium swallow done and reviewed. Patient on mechanical soft. Aspiration precautions in place. Continue with speech recommendations. Time Spent Managing Pts Care (In Minutes): 55
[2017-12-10] MEDS: BENZONATATE 100 MG CAP PO PRN (10:50)
--- NOTE | 2017-12-10 11:05 | FAST ---
SHIFT START DATE/TIME: 12/10/2017 07:00 (CDT) SHIFT END DATE/TIME: 12/10/2017 19:00 (CDT) NAME MYRA LE DATE OF : 1935 DATE OF ADMISSION: 11/22/2017 22:21 (CDT) PHONE: AGE: 82 N# [id number] GENDER: Male ENCOUNTER PHYSICIAN: Dr. Edilberto Colbert M.D. ADMISSION DIAGNOSIS: - Medically Complex Conditions 17 - Other Medically Complex Conditions (17.9) COLON ADENOCARCINOMA. Chronic Renal Disease. COPD. PVD. Parkinson's Disease. EATING: EATING - STEP 1: Does the patient require assistance when eating? Yes. EATING - STEP 2: Does the patient require the assistance of a helper? Yes. EATING - STEP 3: Does the patient perform half or more of the eating tasks? Yes. EATING - STEP 4: Does the patient need only supervision, cuing, coaxing OR help to apply an orthosis OR help to cut fo od, open containers, pour liquids, or butter bread? Yes. EATING - SCORE: 5-SUP GROOMING: Activity did not occur on this shift GROOMING - SCORE: 0-UNK BATHING: Activity did not occur on this shift BATHING - SCORE: 0-UNK DRESSING - UPPER BODY: Patient is not dressing in public clothing ARTICLES SCORE Total number of steps: 0 DRESSING - UPPER BODY - SCORE: 0-UNK DRESSING - LOWER BODY: Patient is not dressing in public clothing ARTICLES SCORE Total number of steps: 0 DRESSING - LOWER BODY - SCORE: 0-UNK TOILETING: TOILETING - STEP 1: Does the patient require assistance with toileting? Yes. TOILETING - STEP 2: Does the patient require the assistance of a helper? Yes. TOILETING - STEP 3: How much assistance does the patient require from the helper? Hands-on assistance from the helper TOILETING - STEP 4: Of the 3 tasks: 1) Adjusting clothing prior to use, 2) Cleansing of perineal area, 3) Adjusting clot flor after use; How many tasks does the patient perform WITHOUT assistance of the helper? One task TOILETING - SCORE: 2-MAX BLADDER MANAGEMENT: BLADDER MANAGEMENT - STEP 1: Does the patient control the bladder completely and intentionally without equipment or devices or med ications, and is always continent? No. BLADDER MANAGEMENT - STEP 2: Does the patient require the assistance of a helper? No, patient requires and independently uses an a ssistive device, such as a urinal, bedpan, bedside commode, catheter, absorbent pad, or collecting de vice BLADDER MANAGEMENT - SCORE: 6-NELLIE BOWEL MANAGEMENT: Activity did not occur on this shift BOWEL MANAGEMENT - SCORE: 7-IND TRANSFERS: BED, CHAIR, WHEELCHAIR: TRANSFERS: BED, CHAIR, WHEELCHAIR - STEP 1: Does the patient require assistance with bed, chair, or wheelchair transfers? Yes. TRANSFERS: BED, CHAIR, WHEELCHAIR - STEP 2: Does the patient require the assistance of a helper? Yes. TRANSFERS: BED, CHAIR, WHEELCHAIR - STEP 3: How much assistance does the patient require from the helper? Lifting of the patient TRANSFERS: BED, CHAIR, WHEELCHAIR - STEP 4: Does the helper lift the patient ONLY up? ONLY down? Up AND Down? ONLY up. TRANSFERS: BED, CHAIR, WHEELCHAIR - SCORE: 3-MOD TRANSFERS: TOILET: TRANSFERS: TOILET - STEP 1: Does the patient require assistance with toilet transfers? Yes. TRANSFERS: TOILET - STEP 2: Does the patient require the assistance of a helper? Yes. TRANSFERS: TOILET - STEP 3: How much assistance does the patient require from the helper? Patient performs half or more of the tr ansferring tasks TRANSFERS: TOILET - STEP 4: Does the patient need only incidental help such as contact guard or steadying during toilet transfer? No. Patient needs more than incidental help TRANSFERS: TOILET - SCORE: 3-MOD TRANSFERS: SHOWER: Activity did not occur on this shift TRANSFERS: SHOWER - SCORE: 0-UNK TRANSFERS: TUB: Activity did not occur on this shift TRANSFERS: TUB - SCORE: 0-UNK LOCOMOTION: WALK: Activity did not occur on this shift LOCOMOTION: WALK - SCORE: 0-UNK LOCOMOTION: WHEELCHAIR: Activity did not occur on this shift LOCOMOTION: WHEELCHAIR - SCORE: 0-UNK COMPREHENSION: COMPREHENSION: TYPE: Both COMPREHENSION - STEP 1: Does the patient require help to understand complex and abstract ideas (such as current events, finan bradley, discharge planning, medical issues, relationships, etc)? Yes. COMPREHENSION - STEP 2: Does the patient require help to understand questions or statements about basic needs or ideas (such as hunger, thirst, sleep, safety, daily schedule, room location, or discomfort) half or more of the t araceli? No. COMPREHENSION - STEP 3: How often does the patient need help to understand directions and conversation about basic needs? Les s than 10% of the time COMPREHENSION - SCORE: 5-SUP EXPRESSION EXPRESSION: TYPE: Both EXPRESSION - STEP 1: Does the patient require help expressing complex and abstract ideas (such as current events, finances , discharge planning, medical issues, relationships, etc)? Yes. EXPRESSION - STEP 2: Does the patient require help to express basic necessities or ideas (such as hunger, thirst, sleep, s afety, daily schedule, room location, or discomfort) half or more of the time? No. EXPRESSION - STEP 3: How often does the patient need help to express directions and conversation about basic needs? 10-24% of the time EXPRESSION - SCORE: 4-MIN SOCIAL INTERACTION: SOCIAL INTERACTION - STEP 1: Does the patient require a helper to interact with others in social and therapeutic situations? Yes. SOCIAL INTERACTION - STEP 2: Does the patient interact appropriately half or more of the time? Yes. SOCIAL INTERACTION - STEP 3: How often does the patient need help to interact appropriately? Less than 10% of the time SOCIAL INTERACTION - SCORE: 5-SUP PROBLEM SOLVING: PROBLEM SOLVING - STEP 1: Does the patient need help to solve complex problems such as managing a checking account or confronti ng interpersonal problems? Yes. PROBLEM SOLVING - STEP 2: Does the patient solve basic routine problems half or more of the time? Yes. PROBLEM SOLVING - STEP 3: How often does the patient need help to solve basic routine problems? 10%-24% of the time PROBLEM SOLVING - SCORE: 4-MIN MEMORY: MEMORY - STEP 1: Does the patient need help to remember frequently encountered people, daily routines, and executing r equests? Yes. MEMORY - STEP 2: How often does the patient need help to remember frequently encountered people, daily routines, and e xecuting requests? 10% - 24% of the time MEMORY - SCORE: 4-MIN SIGNATURE PANEL: The following modified sections: Eating - Score, Grooming - Score, Bathing - Score, Dressing - Upper Body - Score, Dressing - Lower Body - Score, Toileting - Score, Bladder Management - Score, Bowel Man agement - Score, Transfers: Bed, Chair, Wheelchair - Score, Transfers: Toilet - Score, Transfers: Lisa wer - Score, Transfers: Tub - Score, Locomotion: Walk - Score, Locomotion: Wheelchair - Score, Compre hension - Score, Expression - Score, Social Interaction - Score, Problem Solving - Score, Memory - Sc ore were [electronically] signed by Yossi Cotto on Sat Dec 10 2017 11:04:54 GMT-0500 (Central Daylight Time)
[2017-12-10] MEDS: MAGNESIUM HYDROXIDE 8% 30 ML PO PRN (16:00)
[2017-12-10] MEDS: RIVAROXABAN 15 MG TABLET PO SCH (16:01)
[2017-12-10] MEDS: DIPHENHYDRAMINE 25 MG TAB/CAP PO SCH (18:56)
[2017-12-10] MEDS: GABAPENTIN 400 MG CAP PO SCH (18:57)
[2017-12-10] MEDS: LORAZEPAM 0.5 MG TABLET PO PRN (20:27)
[2017-12-11 06:00] VITALS: BMI 21.2
[2017-12-11] MEDS: ARFORMOTEROL TARTRATE 15 MCG/2 ML VIAL.NEB NEB SCH ×2 (07:37→18:10)
[2017-12-11] MEDS: IPRATROPIUM BROM 0.5MG/2.5ML NEB PRN (07:37)
[2017-12-11] MEDS: METOPROLOL TAR 50 MG TAB PO SCH ×2 (08:00→17:12)
[2017-12-11] MEDS: CRANBERRY FRUIT EXTRACT 200 MG CAP PO SCH ×2 (09:00→18:24)
[2017-12-11] MEDS: SUCRALFATE 1 GM TABLET PO SCH ×4 (09:00→20:29)
[2017-12-11] MEDS: FUROSEMIDE 20 MG TABLET PO SCH ×2 (09:00→17:14)
[2017-12-11] MEDS: FERROUS SULFATE 325 MG TAB PO SCH ×3 (09:00→20:29)
[2017-12-11] MEDS: FE SULF/FA/VIT B COMP & C TAB PO SCH (09:00)
[2017-12-11] MEDS: POTASSIUM CL SA 10 MEQ TAB PO SCH (09:00)
[2017-12-11] MEDS: SUPLENA IMPAIRED RENAL 237 ML CAN PO SCH ×2 (09:00→18:26)
[2017-12-11] MEDS: PANTOPRAZOLE 40MG TABLET PO SCH ×2 (09:00→16:37)
[2017-12-11] MEDS: CARBIDOPA/LEVODOPA 25/100 TAB PO SCH ×2 (09:00→18:24)
[2017-12-11] MEDS: GABAPENTIN 300 MG CAP PO SCH (09:00)
[2017-12-11] MEDS: TOPIRAMATE 25 MG TAB PO SCH ×2 (09:00→18:25)
[2017-12-11] MEDS: LIDOCAINE 5% PATCH TOP SCH (09:00)
[2017-12-11] MEDS: MAGNESIUM OXIDE 400 MG TAB PO SCH ×2 (09:00→18:24)
[2017-12-11] MEDS: predniSONE 20 MG TAB PO SCH ×2 (09:00→18:25)
[2017-12-11] MEDS: PENTOXIFYLLINE ER 400 MG TAB PO SCH ×3 (09:00→17:15)
[2017-12-11] MEDS: TIOTROPIUM 5 SPRAYS/INHALER IH SCH (09:00)
[2017-12-11] MEDS: TRAMADOL HCL 50 MG TAB PO PRN (09:15)
[2017-12-11] MEDS: PROMOD 30 ML DOSE PO SCH ×2 (11:16→18:26)
--- NOTE | 2017-12-11 11:29 | FAST ---
SHIFT START DATE/TIME: 12/11/2017 07:00 (CDT) SHIFT END DATE/TIME: 12/11/2017 19:00 (CDT) NAME MYRA LE DATE OF : 1935 DATE OF ADMISSION: 11/22/2017 22:21 (CDT) PHONE: AGE: 82 SSN# [id number] GENDER: Male ENCOUNTER PHYSICIAN: Dr. Edilberto Colbert M.D. ADMISSION DIAGNOSIS: - Medically Complex Conditions 17 - Other Medically Complex Conditions (17.9) COLON ADENOCARCINOMA. Chronic Renal Disease. COPD. PVD. Parkinson's Disease. EATING: EATING - STEP 1: Does the patient require assistance when eating? Yes. EATING - STEP 2: Does the patient require the assistance of a helper? No, patient only requires an assistive device, O R s/he takes more than reasonable time to eat, OR there is a safety concern, OR s/he requires modifie d food consistency EATING - SCORE: 6-NELLIE GROOMING: Activity did not occur on this shift GROOMING - SCORE: 0-UNK BATHING: Activity did not occur on this shift BATHING - SCORE: 0-UNK DRESSING - UPPER BODY: Activity did not occur on this shift ARTICLES SCORE Total number of steps: 0 DRESSING - UPPER BODY - SCORE: 0-UNK DRESSING - LOWER BODY: Activity did not occur on this shift ARTICLES SCORE Total number of steps: 0 DRESSING - LOWER BODY - SCORE: 0-UNK TOILETING: TOILETING - STEP 1: Does the patient require assistance with toileting? Yes. TOILETING - STEP 2: Does the patient require the assistance of a helper? Yes. TOILETING - STEP 3: How much assistance does the patient require from the helper? Hands-on assistance from the helper TOILETING - STEP 4: Of the 3 tasks: 1) Adjusting clothing prior to use, 2) Cleansing of perineal area, 3) Adjusting clot flor after use; How many tasks does the patient perform WITHOUT assistance of the helper? Two tasks TOILETING - SCORE: 3-MOD BLADDER MANAGEMENT: BLADDER MANAGEMENT - STEP 1: Does the patient control the bladder completely and intentionally without equipment or devices or med ications, and is always continent? No. BLADDER MANAGEMENT - STEP 2: Does the patient require the assistance of a helper? No, patient requires and independently uses an a ssistive device, such as a urinal, bedpan, bedside commode, catheter, absorbent pad, or collecting de vice BLADDER MANAGEMENT - SCORE: 6-NELLIE BOWEL MANAGEMENT: BOWEL MANAGEMENT - STEP 1: Does the patient control bowels completely and intentionally without equipment devices or medications AND is always continent? No. BOWEL MANAGEMENT - STEP 2: Does the patient require the assistance of a helper? No, patient requires medication for control such as stool softeners, suppositories, laxatives, enemas, or OTC medications BOWEL MANAGEMENT - SCORE: 6-NELLIE TRANSFERS: BED, CHAIR, WHEELCHAIR: TRANSFERS: BED, CHAIR, WHEELCHAIR - STEP 1: Does the patient require assistance with bed, chair, or wheelchair transfers? Yes. TRANSFERS: BED, CHAIR, WHEELCHAIR - STEP 2: Does the patient require the assistance of a helper? Yes. TRANSFERS: BED, CHAIR, WHEELCHAIR - STEP 3: How much assistance does the patient require from the helper? Steadying/guiding assistance TRANSFERS: BED, CHAIR, WHEELCHAIR - SCORE: 4-MIN TRANSFERS: TOILET: TRANSFERS: TOILET - STEP 1: Does the patient require assistance with toilet transfers? Yes. TRANSFERS: TOILET - STEP 2: Does the patient require the assistance of a helper? Yes. TRANSFERS: TOILET - STEP 3: How much assistance does the patient require from the helper? Patient performs half or more of the tr ansferring tasks TRANSFERS: TOILET - STEP 4: Does the patient need only incidental help such as contact guard or steadying during toilet transfer? No. Patient needs more than incidental help TRANSFERS: TOILET - SCORE: 3-MOD TRANSFERS: SHOWER: Activity did not occur on this shift TRANSFERS: SHOWER - SCORE: 0-UNK TRANSFERS: TUB: Activity did not occur on this shift TRANSFERS: TUB - SCORE: 0-UNK LOCOMOTION: WALK: Activity did not occur on this shift LOCOMOTION: WALK - SCORE: 0-UNK LOCOMOTION: WHEELCHAIR: Activity did not occur on this shift LOCOMOTION: WHEELCHAIR - SCORE: 0-UNK COMPREHENSION: COMPREHENSION: TYPE: Both COMPREHENSION - STEP 1: Does the patient require help to understand complex and abstract ideas (such as current events, finan rbadley, discharge planning, medical issues, relationships, etc)? Yes. COMPREHENSION - STEP 2: Does the patient require help to understand questions or statements about basic needs or ideas (such as hunger, thirst, sleep, safety, daily schedule, room location, or discomfort) half or more of the t araceli? No. COMPREHENSION - STEP 3: How often does the patient need help to understand directions and conversation about basic needs? 10% - 24% of the time COMPREHENSION - SCORE: 4-MIN EXPRESSION EXPRESSION: TYPE: Both EXPRESSION - STEP 1: Does the patient require help expressing complex and abstract ideas (such as current events, finances , discharge planning, medical issues, relationships, etc)? Yes. EXPRESSION - STEP 2: Does the patient require help to express basic necessities or ideas (such as hunger, thirst, sleep, s afety, daily schedule, room location, or discomfort) half or more of the time? No. EXPRESSION - STEP 3: How often does the patient need help to express directions and conversation about basic needs? Less t marie 10% of the time EXPRESSION - SCORE: 5-SUP SOCIAL INTERACTION: SOCIAL INTERACTION - STEP 1: Does the patient require a helper to interact with others in social and therapeutic situations? Yes. SOCIAL INTERACTION - STEP 2: Does the patient interact appropriately half or more of the time? Yes. SOCIAL INTERACTION - STEP 3: How often does the patient need help to interact appropriately? Less than 10% of the time SOCIAL INTERACTION - SCORE: 5-SUP PROBLEM SOLVING: PROBLEM SOLVING - STEP 1: Does the patient need help to solve complex problems such as managing a checking account or confronti ng interpersonal problems? Yes. PROBLEM SOLVING - STEP 2: Does the patient solve basic routine problems half or more of the time? Yes. PROBLEM SOLVING - STEP 3: How often does the patient need help to solve basic routine problems? 10%-24% of the time PROBLEM SOLVING - SCORE: 4-MIN MEMORY: MEMORY - STEP 1: Does the patient need help to remember frequently encountered people, daily routines, and executing r equests? Yes. MEMORY - STEP 2: How often does the patient need help to remember frequently encountered people, daily routines, and e xecuting requests? 10% - 24% of the time MEMORY - SCORE: 4-MIN SIGNATURE PANEL: The following modified sections: Eating - Score, Grooming - Score, Bathing - Score, Dressing - Upper Body - Score, Dressing - Lower Body - Score, Toileting - Score, Bladder Management - Score, Bowel Man agement - Score, Transfers: Bed, Chair, Wheelchair - Score, Transfers: Toilet - Score, Transfers: Lisa wer - Score, Transfers: Tub - Score, Locomotion: Walk - Score, Locomotion: Wheelchair - Score, Compre hension - Score, Expression - Score, Social Interaction - Score, Problem Solving - Score, Memory - Sc ore were [electronically] signed by Yossi Cotto on Sun Dec 11 2017 11:28:05 GMT-0500 (Central Daylight Time)
[2017-12-11] MEDS: DILTIAZEM HCL 120 MG SR CAP PO SCH (12:15)
[2017-12-11] MEDS: RIVAROXABAN 15 MG TABLET PO SCH (17:15)
[2017-12-11] MEDS: GABAPENTIN 400 MG CAP PO SCH (18:24)
[2017-12-11] MEDS: DIPHENHYDRAMINE 25 MG TAB/CAP PO SCH (18:26)
[2017-12-11] MEDS: LORAZEPAM 0.5 MG TABLET PO PRN (20:30)
[2017-12-12] MEDS: IPRATROPIUM BROM 0.5MG/2.5ML NEB PRN ×2 (04:55→19:47)
[2017-12-12] MEDS: SUPLENA IMPAIRED RENAL 237 ML CAN PO SCH ×2 (07:00→08:20)
[2017-12-12] MEDS: TIOTROPIUM 5 SPRAYS/INHALER IH SCH (07:41)
[2017-12-12] MEDS: ARFORMOTEROL TARTRATE 15 MCG/2 ML VIAL.NEB NEB SCH ×2 (07:44→19:47)
[2017-12-12] MEDS: DILTIAZEM HCL 120 MG SR CAP PO SCH (08:00)
[2017-12-12] MEDS: METOPROLOL TAR 50 MG TAB PO SCH ×2 (08:00→16:52)
[2017-12-12] MEDS: CRANBERRY FRUIT EXTRACT 200 MG CAP PO SCH ×2 (08:00→19:11)
[2017-12-12] MEDS: LIDOCAINE 5% PATCH TOP SCH (08:13)
[2017-12-12] MEDS: SUCRALFATE 1 GM TABLET PO SCH ×4 (08:13→20:16)
[2017-12-12] MEDS: FE SULF/FA/VIT B COMP & C TAB PO SCH (08:13)
[2017-12-12] MEDS: POTASSIUM CL SA 10 MEQ TAB PO SCH (08:14)
[2017-12-12] MEDS: predniSONE 20 MG TAB PO SCH ×2 (08:14→19:10)
[2017-12-12] MEDS: MAGNESIUM OXIDE 400 MG TAB PO SCH ×2 (08:14→19:10)
[2017-12-12] MEDS: GABAPENTIN 300 MG CAP PO SCH (08:14)
[2017-12-12] MEDS: PANTOPRAZOLE 40MG TABLET PO SCH ×2 (08:15→15:54)
[2017-12-12] MEDS: TOPIRAMATE 25 MG TAB PO SCH ×2 (08:15→19:10)
[2017-12-12] MEDS: CARBIDOPA/LEVODOPA 25/100 TAB PO SCH ×2 (08:15→19:10)
[2017-12-12] MEDS: FUROSEMIDE 20 MG TABLET PO SCH ×2 (08:15→16:53)
[2017-12-12] MEDS: HYDROCODONE/APAP 5/325 MG TAB PO PRN ×2 (08:15→20:15)
[2017-12-12] MEDS: BENZONATATE 100 MG CAP PO PRN (08:15)
[2017-12-12] MEDS: FERROUS SULFATE 325 MG TAB PO SCH ×3 (08:15→20:16)
[2017-12-12] MEDS: PENTOXIFYLLINE ER 400 MG TAB PO SCH ×3 (08:15→16:51)
[2017-12-12] MEDS: PROMOD 30 ML DOSE PO SCH ×2 (08:20→19:00)
[2017-12-12] MEDS: RIVAROXABAN 15 MG TABLET PO SCH (16:50)
--- NOTE | 2017-12-12 18:02 | R.PN ---
ENCOUNTER DATE AND TIME: 12/12/2017 17:57 (CDT) NAME MYRA LE DATE OF : 1935 DATE OF ADMISSION: 11/22/2017 22:21 (CDT) COLON ADENOCARCINOMAChronic Renal DiseaseCOPDPVDParkinson's DiseaseCHIEF COMPLAINT: Debility, colon adenocarcinoma SUBJECTIVE: Pt denied any Shortness of Breath. Pt denied any depression. Chest x-ray done 11-28-17 shows improvement versus 10-13-17. Mild tachycardia with normal blood pressure s. Afebrile with normal WBC 2 days ago. Ambulated total of 375' with standby assistance. Lactate and procalcitonin are normal. ADLs done with standby assistance to independence. Grooming was done with independence. Did other activities of daily living with standby assistance. Ambulated 210 feet x 3 with contact guard assistance using a rolling walker. VITAL SIGNS Temperature: 97.7 F SBP/DBP: 146/73 Pulse: 93 Resp: 16 Ambulated 750' using a rolling walker with standby assistance using 3L of O2 via nasal cannula. Self -propelled wheelchair 150' with standby assistance. MEDICATION ALLERGIES: No Known Drug Allergies (NKDA) ENVIRONMENTAL ALLERGIES: None Known - Substance Allergies None Known - Other Allergies None Known NURSING: - Shower allowing shower PRECAUTIONS: - Fall Precaution Bed and chair alarm ACTIVITIES OOB only with supervision THERAPIES: - Occupational Therapy Evaluate and Treat. - Speech Therapy Memory Strategies. Speech Intelligibility Training. - Physical Therapy Evaluate and Treat. PHYSICAL EXAM - Gen Alert and awake Lying in bed No apparent distress Oriented to: person, time, and place - Skin No skin breakdown. No abnormalities - Eyes No abnormalities - ENMT No abnormalities - Neck No abnormalities - CVS RRR - Chest Clear - Abd Soft - GI Non distended Deferred - No abnormalities - Ext Mild bilateral lower extremity edema. - MSK 4+/5 weakness in both lower extremities. - Neuro No focal deficits - Psych No abnormalities ASSESSMENT: Pt. is a 82 yo Right-handed white male.On 11/10/2017 he was admitted to [facility] with diagnosis COLON ADENOCARCINOMA.His impairment category is Medically Complex Conditions 17 - Other Medically Complex Conditions (17.9).Pre-morbidly, Pt. was independent/mod-I in Social Cognitio n, Self-Care, Locomotion, Sphincter Control, Transfers Control, and Communication; and he had good Sp hincter Control.Currently, he has deficits of Balance, Locomotion, Endurance, Safety Awareness, Trans fers Control, and Self-Care.Pt. is now referred to [facility] for acute in-pat ient rehabilitation in order to maximize patient's functional independence in activities of daily maria luisa ing, strength, ROM, and mobility.- Rehab Goal Patient has realistic goal of being discharged at assistance level 6-Katheryn to reside at Home with Fam nahomy/Relatives. MDM/PLAN: - Physical Therapy Gait dysfunction - to improve, our physical therapists will perform initial evaluation of pt's statu s upon admission and devise an individualized program for Gait Training, and Wheel Chair mobility Inability to transfer - to improve, our physical therapists will perform initial evaluation of pt's status upon admission and devise an individualized program for Bed mobility Need for home safety evaluation - to improve, our physical therapists will perform initial evaluatio n of pt's status upon admission and devise an individualized program for Home Evaluation Need in caregiver upon discharge - to improve, our physical therapists will perform initial evaluati on of pt's status upon admission and devise an individualized program for Caregiver Training New precaution - to improve, our physical therapists will perform initial evaluation of pt's status upon admission and devise an individualized program for Patient precaution education Edema - to improve, our physical therapists will perform initial evaluation of pt's status upon admi ssion and devise an individualized program for Elevation Training, and Lymphedema Therapy Pain - to improve, our physical therapists will perform initial evaluation of pt's status upon admis garry and devise an individualized program for Modalities Poor balance - to improve, our physical therapists will perform initial evaluation of pt's status up on admission and devise an individualized program for Balance Training Poor endurance - to improve, our physical therapists will perform initial evaluation of pt's status upon admission and devise an individualized program for Endurance Training Weakness - to improve, our physical therapists will perform initial evaluation of pt's status upon a dmission and devise an individualized program for Aquatic Therapy, Neuromuscular Reeducation, and Str engthening Achieving independence - to improve, our physical therapists will perform initial evaluation of pt's status upon admission and devise an individualized program for Community Reintegration Activities - Occupational Therapy ADL deficits - to improve, our occupation therapists will perform initial evaluation of pt's status upon admission and devise an individualized program for Bathing, Bed mobility, Community Reintegratio n, Cooking, Dressing, Eating, Fine Motor Skills, Grooming, Homemaking, Kitchen Mobility, Laundry, Pat ient Education, Safety Awareness, Splinting - Positioning, Transfers(Toilet, Tub, Shower), and Wheel Chair Management Need for acute care assistant - to improve, our occupation therapists will perform initial evaluation of pt's status upon admission and devise an individualized program for Caregiver Training Weakness - to improve, our occupation therapists will perform initial evaluation of pt's status upon admission and devise an individualized program for Aquatic Therapy, Balance, Endurance, UE ROM, and UE strengthening - Diet Type Continue Low Fiber - Diet - Liquid Texture Continue Regular - Tube Feed Continue N/A - Fall Precaution Bed and chair alarm - Diet - Solid Texture Continue Regular Continue GI Soft - Shower allowing shower FUNCTIONAL STATUS: UPDATED AT WEEKLY TEAM CONFERENCE - Bladder Same accident frequency: 7-Ind - No accidents in the past 7 days - Bowel Same accident frequency: 7-Ind - No accidents in the past 7 days - Walking Same score based on distance walked: 1(<=50ft) - Wheelchair Same score based on distance traveled: 0(N/A) FUNCTIONAL STATUS: - Self-Care A. Eating Ind B. Grooming sup C. Bathing Magaly D. Dressing - Upper Magaly E. Dressing - Lower Magaly F. Toileting Magaly - Sphincter Control G: Bladder control Ind H: Bowel control Ind - Transfers Control I. Bed/Chair/Wheelchair modA J. Toilet modA K. Tub/Shower ADNO - Locomotion L. Walk/Wheelchair (B) modA M. Stairs ADNO - Communication N. Comprehension (B) Ind O. Expression (B) Ind - Social Cognition P. Social Interaction Ind Q. Problem Solving Ind R. Memory Ind - Endurance Fair - Balance Fair - Safety Awareness Fair CURRENT FUNC. DEFICITS: Balance, Locomotion, Endurance, Safety Awareness, Transfers Control, and Self-Care SIGNATURE PANEL: (CDT)
[2017-12-12] MEDS: DIPHENHYDRAMINE 25 MG TAB/CAP PO SCH (18:30)
[2017-12-12] MEDS: GABAPENTIN 400 MG CAP PO SCH (19:10)
[2017-12-12] MEDS: ALBUTEROL 2.5 MG/3 ML NEB SOL NEB PRN (19:47)
--- NOTE | 2017-12-13 01:54 | FAST ---
SHIFT START DATE/TIME: 12/12/2017 19:00 (CDT) SHIFT END DATE/TIME: 12/13/2017 07:00 (CDT) NAME MYRA LE DATE OF : 1935 DATE OF ADMISSION: 11/22/2017 22:21 (CDT) PHONE: AGE: 82 SSN# [id number] GENDER: Male ENCOUNTER PHYSICIAN: Dr. Edilberto Colbert M.D. ADMISSION DIAGNOSIS: - Medically Complex Conditions 17 - Other Medically Complex Conditions (17.9) COLON ADENOCARCINOMA. Chronic Renal Disease. COPD. PVD. Parkinson's Disease. EATING: Activity did not occur on this shift EATING - SCORE: 0-UNK GROOMING: Wash, rinse, and dry hands GROOMING - STEP 1: Does the patient require assistance when grooming? Yes. GROOMING - STEP 2: Does the patient require the assistance of a helper? Yes. GROOMING - STEP 3: How much assistance does the patient require from the helper? Cuing, coaxing, instructions, or encour agement for completion of grooming GROOMING - SCORE: 5-SUP BATHING: Activity did not occur on this shift BATHING - SCORE: 0-UNK DRESSING - UPPER BODY: Patient is not dressing in public clothing ARTICLES SCORE Total number of steps: 0 DRESSING - UPPER BODY - SCORE: 0-UNK DRESSING - LOWER BODY: Patient is not dressing in public clothing ARTICLES SCORE Total number of steps: 0 DRESSING - LOWER BODY - SCORE: 0-UNK TOILETING: TOILETING - STEP 1: Does the patient require assistance with toileting? Yes. TOILETING - STEP 2: Does the patient require the assistance of a helper? Yes. TOILETING - STEP 3: How much assistance does the patient require from the helper? Hands-on assistance from the helper TOILETING - STEP 4: Of the 3 tasks: 1) Adjusting clothing prior to use, 2) Cleansing of perineal area, 3) Adjusting clot flor after use; How many tasks does the patient perform WITHOUT assistance of the helper? One task TOILETING - SCORE: 2-MAX BLADDER MANAGEMENT: BLADDER MANAGEMENT - STEP 1: Does the patient control the bladder completely and intentionally without equipment or devices or med ications, and is always continent? No. BLADDER MANAGEMENT - STEP 2: Does the patient require the assistance of a helper? Yes. BLADDER MANAGEMENT - STEP 3: How much assistance does the patient require from the helper? Only set-up of equipment - such as plac ing it within reach of the patient or emptying a device - to maintain either satisfactory voiding pat tern or managing an external device, such as an absorbent pad, ileal device, or catheter BLADDER MANAGEMENT - SCORE: 5-SUP BOWEL MANAGEMENT: BOWEL MANAGEMENT - STEP 1: Does the patient control bowels completely and intentionally without equipment devices or medications AND is always continent? No. BOWEL MANAGEMENT - STEP 2: Does the patient require the assistance of a helper? No, patient requires medication for control such as stool softeners, suppositories, laxatives, enemas, or OTC medications BOWEL MANAGEMENT - SCORE: 6-NELLIE TRANSFERS: BED, CHAIR, WHEELCHAIR: TRANSFERS: BED, CHAIR, WHEELCHAIR - STEP 1: Does the patient require assistance with bed, chair, or wheelchair transfers? Yes. TRANSFERS: BED, CHAIR, WHEELCHAIR - STEP 2: Does the patient require the assistance of a helper? Yes. TRANSFERS: BED, CHAIR, WHEELCHAIR - STEP 3: How much assistance does the patient require from the helper? Lifting of the legs TRANSFERS: BED, CHAIR, WHEELCHAIR - STEP 4: How many legs does the patient require the helper to lift? both legs TRANSFERS: BED, CHAIR, WHEELCHAIR - SCORE: 3-MOD TRANSFERS: TOILET: TRANSFERS: TOILET - STEP 1: Does the patient require assistance with toilet transfers? Yes. TRANSFERS: TOILET - STEP 2: Does the patient require the assistance of a helper? Yes. TRANSFERS: TOILET - STEP 3: How much assistance does the patient require from the helper? Patient performs half or more of the tr ansferring tasks TRANSFERS: TOILET - STEP 4: Does the patient need only incidental help such as contact guard or steadying during toilet transfer? Yes. TRANSFERS: TOILET - SCORE: 4-MIN TRANSFERS: SHOWER: Activity did not occur on this shift TRANSFERS: SHOWER - SCORE: 0-UNK TRANSFERS: TUB: Activity did not occur on this shift TRANSFERS: TUB - SCORE: 0-UNK LOCOMOTION: WALK: Activity did not occur on this shift LOCOMOTION: WALK - SCORE: 0-UNK LOCOMOTION: WHEELCHAIR: Activity did not occur on this shift LOCOMOTION: WHEELCHAIR - SCORE: 0-UNK COMPREHENSION: COMPREHENSION: TYPE: Both COMPREHENSION - STEP 1: Does the patient require help to understand complex and abstract ideas (such as current events, finan bradley, discharge planning, medical issues, relationships, etc)? Yes. COMPREHENSION - STEP 2: Does the patient require help to understand questions or statements about basic needs or ideas (such as hunger, thirst, sleep, safety, daily schedule, room location, or discomfort) half or more of the t araceli? No. COMPREHENSION - STEP 3: How often does the patient need help to understand directions and conversation about basic needs? 10% - 24% of the time COMPREHENSION - SCORE: 4-MIN EXPRESSION EXPRESSION: TYPE: Both EXPRESSION - STEP 1: Does the patient require help expressing complex and abstract ideas (such as current events, finances , discharge planning, medical issues, relationships, etc)? No. EXPRESSION - STEP 2: Does the patient need extra time, require an assistive device (such as augmentive communication syste m or a communication board), OR does s/he have mild difficulty expressing complex and abstract ideas (including mild dysarthria or mild word-find problems)? Yes. EXPRESSION - SCORE: 6-NELLIE SOCIAL INTERACTION: SOCIAL INTERACTION - STEP 1: Does the patient require a helper to interact with others in social and therapeutic situations? No. SOCIAL INTERACTION - STEP 2: Does the patient need extra time in social situations, OR does s/he interact with staff, other patien ts, and family members ONLY in structured environments, OR does s/he require medication for social in teraction? Yes, patient needs extra time SOCIAL INTERACTION - SCORE: 6-NELLIE PROBLEM SOLVING: PROBLEM SOLVING - STEP 1: Does the patient need help to solve complex problems such as managing a checking account or confronti ng interpersonal problems? Yes. PROBLEM SOLVING - STEP 2: Does the patient solve basic routine problems half or more of the time? Yes. PROBLEM SOLVING - STEP 3: How often does the patient need help to solve basic routine problems? 25%-49% of the time PROBLEM SOLVING - SCORE: 3-MOD MEMORY: MEMORY - STEP 1: Does the patient need help to remember frequently encountered people, daily routines, and executing r equests? Yes. MEMORY - STEP 2: How often does the patient need help to remember frequently encountered people, daily routines, and e xecuting requests? 25% - 49% of the time MEMORY - SCORE: 3-MOD SIGNATURE PANEL: The following modified sections: Eating - Score, Grooming - Score, Dressing - Upper Body - Score, Jewel ssing - Lower Body - Score, Toileting - Score, Bladder Management - Score, Bowel Management - Score, Transfers: Bed, Chair, Wheelchair - Score, Transfers: Toilet - Score, Transfers: Shower - Score, Valdez sfers: Tub - Score, Locomotion: Walk - Score, Locomotion: Wheelchair - Score, Comprehension - Score, Expression - Score, Social Interaction - Score, Problem Solving - Score, Memory - Score were [electro nically] signed by Margarita Raza CNA on TueDec 13 2017 01:52:50 GMT-0500 (Central Daylight Time)
[2017-12-13] MEDS: ALBUTEROL 2.5 MG/3 ML NEB SOL NEB PRN (03:58)
[2017-12-13] MEDS: IPRATROPIUM BROM 0.5MG/2.5ML NEB PRN ×3 (03:59→13:30)
[2017-12-13 07:09] VITALS: TEMP 97.2
[2017-12-13] MEDS ORDERED: ARFORMOTEROL TARTRATE 15 MCG/2 ML VIAL.NEB NEB SCH (08:00)
[2017-12-13] MEDS: SUPLENA IMPAIRED RENAL 237 ML CAN PO SCH (08:00)
[2017-12-13] MEDS: PROMOD 30 ML DOSE PO SCH (08:00)
[2017-12-13] MEDS: CRANBERRY FRUIT EXTRACT 200 MG CAP PO SCH (08:33)
[2017-12-13] MEDS: MAGNESIUM OXIDE 400 MG TAB PO SCH (08:33)
[2017-12-13] MEDS: predniSONE 20 MG TAB PO SCH (08:34)
[2017-12-13] MEDS: GABAPENTIN 300 MG CAP PO SCH (08:34)
[2017-12-13] MEDS: SUCRALFATE 1 GM TABLET PO SCH ×2 (08:35→13:44)
[2017-12-13] MEDS: FERROUS SULFATE 325 MG TAB PO SCH ×2 (08:35→13:44)
[2017-12-13] MEDS: PENTOXIFYLLINE ER 400 MG TAB PO SCH ×2 (08:35→11:38)
[2017-12-13] MEDS: PANTOPRAZOLE 40MG TABLET PO SCH (08:35)
[2017-12-13] MEDS: FUROSEMIDE 20 MG TABLET PO SCH (08:36)
[2017-12-13] MEDS: TOPIRAMATE 25 MG TAB PO SCH (08:36)
[2017-12-13] MEDS: FE SULF/FA/VIT B COMP & C TAB PO SCH (08:38)
[2017-12-13] MEDS: CARBIDOPA/LEVODOPA 25/100 TAB PO SCH (08:38)
[2017-12-13] MEDS: POTASSIUM CL SA 10 MEQ TAB PO SCH (08:38)
[2017-12-13] MEDS: METOPROLOL TAR 50 MG TAB PO SCH (08:38)
[2017-12-13] MEDS: TIOTROPIUM 5 SPRAYS/INHALER IH SCH (08:40)
[2017-12-13] MEDS: TRAMADOL HCL 50 MG TAB PO PRN (09:22)
[2017-12-13] MEDS: LIDOCAINE 5% PATCH TOP SCH (09:23)
[2017-12-13] MEDS: DILTIAZEM HCL 120 MG SR CAP PO SCH (09:23)
[2017-12-13 09:24] VITALS: BP 123/69
[2017-12-13 10:30] VITALS: O2SAT 91
== END 2017-12-13 16:00 | DRG 375 ==
LOC: 5TH 11-22 22:21
PROVIDERS: ADMIT Psychiatry & Neurology Neurology with Special Qualifications in Child Neurology; ATTEND Psychiatry & Neurology Neurology with Special Qualifications in Child Neurology
DX: C18.9 Malignant neoplasm of colon, unspecified (principal); J44.1 Chronic obstructive pulmonary disease with (acute) exacerbation; I50.32 Chronic diastolic (congestive) heart failure; I73.9 Peripheral vascular disease, unspecified; B35.1 Tinea unguium; G20 Parkinson's disease; I48.2 Chronic atrial fibrillation; I12.9 Hypertensive chronic kidney disease with stage 1 through stage 4 chronic kidney disease, or unspecified chronic kidney disease; N18.3 Chronic kidney disease, stage 3 (moderate); M19.90 Unspecified osteoarthritis, unspecified site; G89.4 Chronic pain syndrome; E78.5 Hyperlipidemia, unspecified; I70.91 Generalized atherosclerosis; Z99.81 Dependence on supplemental oxygen; Z79.52 Long term (current) use of systemic steroids
CPT/HCPCS: 36415; 71045; 74230; 80048; 80053; 81001; 81003; 82040; 82805; 83605; 83615; 83735; 84134; 84145; 84550; 85014; 85018; 85025; 87040; 87070; 87077; 87086; 87088; 87186; 87205; 93005; 97542; J7512; J7605